=== PATIENT | male | born 1980 | race African-American/Black ===

== ENCOUNTER 2016-07-12 01:56 | Emergency (ER) | payer OTHER ==
[2016-07-12] MEDS ORDERED: ONDANSETRON 4MG/2ML VIAL (J2405) As Ordered ONE (02:59)
[2016-07-12 03:00] LABS: BASO % 0.6 % (0.0-1.0); EOS # 0.4 K/mm3 (0.0-0.50); EOS % 6.2 % (0.0-3.0); LARGE UNSTAINED CELL # 0.2 K/mm3 (0.0-0.4); LARGE UNSTAINED CELL % 3.6 % (0.0-4.0); LYMPH # 3.2 K/mm3 (1.5-4.5); LYMPH % 46.7 % (24.0-44.0); MEAN CORPUSCULAR HEMOGLOBIN 29.3 pg (27.0-33.0); MEAN CORPUSCULAR HGB CONC 35.1 g/dl (32.0-36.5); MEAN CORPUSCULAR VOLUME 83.4 fl (80.0-96.0); MONO # 0.4 K/mm3 (0.0-0.8); MONO % 5.2 % (0.0-5.0); NEUTROPHILS # 2.6 K/mm3 (1.8-7.7); NEUTROPHILS % 37.7 % (36.0-66.0); PLATELET COUNT, AUTOMATED 139 k/mm3 (150-450); RED CELL DISTRIBUTION WIDTH 13.2 % (11.5-14.5); WHITE BLOOD COUNT 6.8 K/mm3 (4.0-10.0)
[2016-07-12 03:19] LABS: ALBUMIN 3.8 GM/DL (3.2-5.2); ALBUMIN/GLOBULIN RATIO 1.06 (1.00-1.93); ALKALINE PHOSPHATASE 71 U/L (45-117); ALT/SGPT 71 U/L (12-78); AMYLASE 69 U/L (25-115); ANION GAP 10 MEQ/L (8-16); AST/SGOT 32 U/L (15-37); BILIRUBIN,DIRECT < 0.1 MG/DL (0.0-0.2); BILIRUBIN,TOTAL 0.3 MG/DL (0.2-1.0); BLOOD UREA NITROGEN 18 MG/DL (7-18); CALCIUM LEVEL 8.8 MG/DL (8.5-10.1); CARBON DIOXIDE LEVEL 29 MEQ/L (21-32); CHLORIDE LEVEL 103 MEQ/L (98-107); CREATININE FOR GFR 1.24 MG/DL (0.70-1.30); GLOMERULAR FILTRATION RATE > 60.0 (>60); GLUCOSE, FASTING 132 MG/DL (70-105); POTASSIUM SERUM 3.4 MEQ/L (3.5-5.1); SODIUM LEVEL 142 MEQ/L (136-145); TOTAL PROTEIN 7.4 GM/DL (6.4-8.2)
[2016-07-12] MEDS ORDERED: MECLIZINE 12.5 MG TAB As Ordered ONE (04:55)
--- NOTE | 2016-07-12 07:10 | EDDOCDS ---
Physician Documentation [facility] Name: Andrei Heard Age: 36 yrs Sex: Male : 1980 Arrival Date: 07/12/2016 Time: 01:56 Bed 7 Private MD: Disposition: 07/12/16 06:58 Discharged to Home/Self Care. Impression: Dizziness and giddiness, Nausea and vomiting. - Condition is Stable. - Discharge Instructions: Dizziness, Vertigo, Vertigo, [id number]-to-[id number]. - Prescriptions for Meclizine 25 mg Oral Tablet - take 1 tablet by ORAL route every 8 hours As needed; 30 tablet. ZOFRAN ODT 4 mg - dissolve 1 tablet by ORAL route 4 times per day As needed do not chew, do not swallow whole; 10 tablet. - Medication Reconciliation, Local Pharmacy Hours form. - Follow up: Socrates Campbell; When: 2 - 3 days; Reason: Continuance of care. - Problem is an acute exacerbation. - Symptoms have improved. Historical: - Allergies: No known drug Allergies; - Home Meds: 1. amlodipine 2.5 mg Oral tab 1 tab once daily (Last dose: 07/11/2016) 2. eye drops - PMHx: Hypertension; Glaucoma; - PSHx: none; - Social history: Smoking status: Patient states was never smoker of tobacco. No barriers to communication noted, The patient speaks fluent Danish, Speaks appropriately for age. - Family history: Not pertinent. - : The pt / caregiver states he / she is not on anticoagulants. Home medication list is obtained from the patient, [employer] import data. - Exposure Risk Screening:: None identified. Vital Signs: 07/12 02:06 BP 168 / 108; Pulse 87; Resp 20; Temp 96.9(O); Pulse Ox 95% on R/A; Weight 115.67 kg / kmg1 255.01 lbs (R); Height 6 ft. 3 in. (190.50 cm) (R); Pain 0/10; 02:12 BP 168 / 108 (auto/); cz 02:13 BP 162 / 102 (auto/); cz 02:13 Pulse 84 MON; Pulse Ox 94% ; cz 02:14 BP 159 / 101 (auto/); cz 02:14 Pulse 84 MON; Pulse Ox 95% ; cz 02:15 Pulse 82 MON; Pulse Ox 95% ; cz 02:29 BP 151 / 96 (auto/); cz 02:29 Pulse 84 MON; Pulse Ox 94% ; cz 02:44 BP 175 / 103 (auto/); cz 02:44 Pulse 74 MON; Pulse Ox 93% ; cz 02:58 Pulse 76 MON; Pulse Ox 92% ; cz 02:59 BP 163 / 90 (auto/); cz 03:14 BP 154 / 86 (auto/); cz 03:14 Pulse 72 MON; Pulse Ox 97% ; cz 03:29 BP 159 / 89 (auto/); cz 03:29 Pulse 72 MON; Pulse Ox 93% ; cz 03:44 BP 165 / 93 (auto/); cz 03:44 Pulse 68 MON; Pulse Ox 92% ; cz 03:59 BP 150 / 87 (auto/); cz 03:59 Pulse 68 MON; Pulse Ox 93% ; cz 04:14 BP 152 / 90 (auto/); cz 04:14 Pulse 68 MON; Pulse Ox 93% ; cz 04:29 BP 156 / 89 (auto/); cz 04:29 Pulse 72 MON; Pulse Ox 92% ; cz 04:42 Pulse 72 MON; Pulse Ox 93% ; cz 04:48 BP 127 / 65 (auto/); cz 04:59 BP 116 / 62 (auto/); cz 04:59 Pulse 70 MON; Pulse Ox 94% ; cz 05:14 BP 120 / 66 (auto/); cz 05:14 Pulse 70 MON; Pulse Ox 95% ; cz 05:29 BP 122 / 64 (auto/); cz 05:29 Pulse 66 MON; Pulse Ox 94% ; cz 05:44 BP 147 / 89 (auto/); cz 05:44 Pulse 74 MON; Pulse Ox 93% ; cz 05:59 BP 157 / 74 (auto/); cz 05:59 Pulse 72 MON; Pulse Ox 96% ; cz 07:09 BP 147 / 89; Pulse 83; Resp 16; Temp 96.3(O); Pulse Ox 97% on R/A; Pain 0/10; kr3 02:06 Body Mass Index 31.87 (115.67 kg, 190.50 cm) kmg1 MDM: 02:02 ECG WITH READING ER PHYS+CARDIAG ordered. EDMS 02:54 NS 0.9% 1000 ml IV at bolus once ordered. mm11 02:54 Ondansetron 4 mg IVP once ordered. mm11 02:54 IV Saline Lock ordered. mm11 02:54 Undress patient appropriately for examination ordered. mm11 02:55 Amylase Ordered. EDMS 02:55 Basic Metabolic Profile Ordered. EDMS 02:55 CBC with Diff Ordered. EDMS 02:55 Cardiac Injury Profile Ordered. EDMS 02:55 Lipase Ordered. EDMS 02:55 Liver Profile Ordered. EDMS 02:55 Troponin Ordered. EDMS 02:55 NOTHING BY MOUTH+DIET ordered. EDMS 03:11 Financial registration complete. h 03:22 Basic Metabolic Profile Reviewed. mm11 03:22 CBC with Diff Reviewed. mm11 03:22 Cardiac Injury Profile Reviewed. mm11 03:22 Amylase Reviewed. mm11 03:22 Lipase Reviewed. mm11 03:22 Liver Profile Reviewed. mm11 03:22 Troponin Reviewed. mm11 04:24 [facility] Payment Agreement was scanned into datango and attached to record. [facility] 04:48 NS 0.9% 1000 ml IV at bolus once ordered. mm11 04:50 Meclizine 25 mg PO once ordered. mm11 Administered Medications: 03:02 Drug: NS 0.9% 1000 ml [sodium chloride 0.9 % intravenous solution] Route: IV; Rate: cz bolus; Site: left antecubital; 03:03 Drug: Ondansetron 4 mg Route: IVP; Site: left antecubital; cz 04:51 Drug: NS 0.9% 1000 ml [sodium chloride 0.9 % intravenous solution] Route: IV; Rate: cz bolus; Site: left antecubital; 05:05 Drug: Meclizine 25 mg [meclizine 12.5 mg tablet (2 tabs)] Route: PO; cz Signatures: Dispatcher [employer] EDMS Hoa Enriquez RN RN kmg1 Jasson Lopez RN RN cz Robie, Kathleen,GILDARDO RN carlos3 Ko Rodriguez, DO [facility] Pastora Gillespie [facility] The chart was reviewed and I authenticate all verbal orders and agree with the evaluation and treatment provided.Attachments: 04:24 [facility] Payment Agreement [facility] MTDD
--- NOTE | 2016-07-12 07:10 | EDDOCDS ---
Nurse's Notes [facility] Name: Andrei Heard Age: 36 yrs Sex: Male : 1980 Arrival Date: 07/12/2016 Time: 01:56 Bed 7 Private MD: Diagnosis: Dizziness and giddiness;Nausea and vomiting Presentation: 07/12 02:03 Presenting complaint: Patient states: Dizzy, passing out tonight, palpitations, clammy, kmg1 nausea and vomiting. Suicide/Homicide risk assessment- the patient denies having any suicidal and/or homicidal ideations and does not present with any other emotional, behavioral or mental health complaints. Transition of care: patient was not received from another setting of care. 02:03 Method Of Arrival: Walkin/Carried/Asstd kmg1 02:13 Adult Sepsis Screening: The patient does not have new or worsening altered mentation. kmg1 Patient's respiratory rate is less than 22. Systolic blood pressure is greater than 100. Patient has a qSOFA score of 0- Negative Sepsis Screen. Status: Patient is not a retail service representative or dependent. 02:13 Acuity: DELFINA Level 3 kmg1 Triage Assessment: 02:06 General: Appears in no apparent distress, ill, uncomfortable, Behavior is appropriate kmg1 for age, cooperative. Pain: Denies pain. HIV screening NA for this visit Offered previously. The patient is triaged at the bedside. See Assessment in Nurses Notes section of ED record. Neurological: Level of Consciousness is awake, alert, Oriented to person, place, time, Reports dizziness. EENT: No deficits noted. Cardiovascular: Reports Nausea palpitations, syncope, Vomiting. Respiratory: Airway is patent Respiratory effort is even, unlabored, Respiratory pattern is regular, symmetrical. GI: Pt is actively vomiting clear fluid, Reports nausea, vomiting. : No deficits noted. Derm: Skin is dry, Skin is brown, Skin temperature is cool. Musculoskeletal: No deficits noted. Historical: - Allergies: No known drug Allergies; - Home Meds: 1. amlodipine 2.5 mg Oral tab 1 tab once daily (Last dose: 07/11/2016) 2. eye drops - PMHx: Hypertension; Glaucoma; - PSHx: none; - Social history: Smoking status: Patient states was never smoker of tobacco. No barriers to communication noted, The patient speaks fluent Wallisian, Speaks appropriately for age. - Family history: Not pertinent. - : The pt / caregiver states he / she is not on anticoagulants. Home medication list is obtained from the patient, [employer] import data. - Exposure Risk Screening:: None identified. Screenin:14 Screening information is obtained from the patient. Fall risk: No risks identified. kmg1 Assistance ADL's: requires no assistance with activities of daily living. Abuse/DV Screen: The patient / caregiver reports he/she is: not in a situation that causes fear, pain or injury. Nutritional screening: No deficits noted. Advance Directives: There is no active DNR order. home support is adequate. Assessment: 02:34 General: Appears uncomfortable, Behavior is appropriate for age. Neurological: No cz deficits noted. EENT: No deficits noted. Cardiovascular: No deficits noted. Rhythm is sinus bradycardia No ectopy. Respiratory: No deficits noted. Airway is patent Respiratory effort is even, unlabored, Respiratory pattern is regular. GI: No deficits noted. Abdomen is non- distended Bowel sounds present X 4 quads. 03:56 Reassessment: Patient appears in no apparent distress at this time. Patient states cz symptoms have improved. pt resting quietly in darkened room with lights off vital signs stable no vomiting since arrival. 04:52 Adult Sepsis Screening: The patient does not have new or worsening altered mentation. cz Patient's respiratory rate is less than 22. Systolic blood pressure is greater than 100. Patient has a qSOFA score of 0- Negative Sepsis Screen. General: pt up to bathroom to void became dizzy again provider aware orders received . 06:14 Reassessment: Patient appears in no apparent distress at this time. pt continues to cz rest in darkened room with 2nd IV infusing stable vital signs awaiting disposition. 06:40 Reassessment: pt up to bathroom to void again returned to bed with no vertigo this time cz pt states feels much better only slight headache over right eye pt has had no vomiting since arrival no ectopy on monitor. 07:08 Reassessment: Patient appears in no apparent distress at this time. Patient denies pain kr3 at this time. Neurological: Level of Consciousness is awake, alert, Moves all extremities. Gait is steady, Speech is normal, Denies dizziness. Respiratory: Respiratory effort is even, unlabored. Derm: Skin is normal. Vital Signs: 02:06 BP 168 / 108; Pulse 87; Resp 20; Temp 96.9(O); Pulse Ox 95% on R/A; Weight 115.67 kg kmg1 (R); Height 6 ft. 3 in. (190.50 cm) (R); Pain 0/10; 02:12 BP 168 / 108 (auto/); cz 02:13 BP 162 / 102 (auto/); cz 02:13 Pulse 84 MON; Pulse Ox 94% ; cz 02:14 BP 159 / 101 (auto/); cz 02:14 Pulse 84 MON; Pulse Ox 95% ; cz 02:15 Pulse 82 MON; Pulse Ox 95% ; cz 02:29 BP 151 / 96 (auto/); cz 02:29 Pulse 84 MON; Pulse Ox 94% ; cz 02:44 BP 175 / 103 (auto/); cz 02:44 Pulse 74 MON; Pulse Ox 93% ; cz 02:58 Pulse 76 MON; Pulse Ox 92% ; cz 02:59 BP 163 / 90 (auto/); cz 03:14 BP 154 / 86 (auto/); cz 03:14 Pulse 72 MON; Pulse Ox 97% ; cz 03:29 BP 159 / 89 (auto/); cz 03:29 Pulse 72 MON; Pulse Ox 93% ; cz 03:44 BP 165 / 93 (auto/); cz 03:44 Pulse 68 MON; Pulse Ox 92% ; cz 03:59 BP 150 / 87 (auto/); cz 03:59 Pulse 68 MON; Pulse Ox 93% ; cz 04:14 BP 152 / 90 (auto/); cz 04:14 Pulse 68 MON; Pulse Ox 93% ; cz 04:29 BP 156 / 89 (auto/); cz 04:29 Pulse 72 MON; Pulse Ox 92% ; cz 04:42 Pulse 72 MON; Pulse Ox 93% ; cz 04:48 BP 127 / 65 (auto/); cz 04:59 BP 116 / 62 (auto/); cz 04:59 Pulse 70 MON; Pulse Ox 94% ; cz 05:14 BP 120 / 66 (auto/); cz 05:14 Pulse 70 MON; Pulse Ox 95% ; cz 05:29 BP 122 / 64 (auto/); cz 05:29 Pulse 66 MON; Pulse Ox 94% ; cz 05:44 BP 147 / 89 (auto/); cz 05:44 Pulse 74 MON; Pulse Ox 93% ; cz 05:59 BP 157 / 74 (auto/); cz 05:59 Pulse 72 MON; Pulse Ox 96% ; cz 07:09 BP 147 / 89; Pulse 83; Resp 16; Temp 96.3(O); Pulse Ox 97% on R/A; Pain 0/10; kr3 02:06 Body Mass Index 31.87 (115.67 kg, 190.50 cm) kmg1 Vitals: 07:09 Log In Time: July 12, 2016 at 02:00. kr3 ED Course: 01:58 Patient visited by Zahira Prescott, Reg. hs2 01:58 Patient moved to Waiting hs2 02:01 Patient moved to 7 kmg1 02:10 Patient visited by Judy Rodriguez PCA. yo 02:10 Pt greeted and oriented to ED. Patient advised of names of staff involved in care, yo location of call hazel, wait times and NPO status. Patient has correct armband on for positive identification. Placed in gown. Bed in low position. Call light in reach. Side rails up X2. multicut line operator on. Pulse ox on. NIBP on. 02:10 EKG done. (by ED staff). Reviewed by Ko Rodriguez DO. yo 02:13 Triage Initiated kmg1 02:14 Patient visited by Hoa Enriquez RN. kmg1 02:17 Ko Rodriguez DO is Attending Physician. mm11 02:17 Patient visited by Ko Rodriguez DO. mm11 02:54 Patient visited by Ko Rodriguez DO. mm11 03:25 Patient visited by Jasson Lopez RN. cz 04:23 Patient name changed from Andrei\S\\S\Alzouma\S\ to Andrei\S\ \S\Alzouma. EDMS 04:24 [facility] Payment Agreement was scanned into [employer] and attached to record. slh 04:38 Patient visited by Jasson Lopez RN. cz 05:09 Patient visited by Jasson Lopez RN. cz 05:44 Patient visited by Jasson Lopez RN. cz 06:17 Patient visited by Jasson Lopez RN. cz 06:54 Patient visited by Jasson Lopez RN. cz 06:58 Socrates Campbell is Referral Physician. mm11 06:59 Stephanie Vanegas,RN is Primary Nurse. kr3 07:07 Discontinued lock intact, bleeding controlled, pressure dressing applied, No kr3 redness/swelling at site. No procedures done that require assistance. 07:09 The patient / caregiver is instructed regarding the plan of care and ED course. kr3 Administered Medications: 03:02 Drug: NS 0.9% 1000 ml [sodium chloride 0.9 % intravenous solution] Route: IV; Rate: cz bolus; Site: left antecubital; 03:03 Drug: Ondansetron 4 mg Route: IVP; Site: left antecubital; cz 04:51 Drug: NS 0.9% 1000 ml [sodium chloride 0.9 % intravenous solution] Route: IV; Rate: cz bolus; Site: left antecubital; 05:05 Drug: Meclizine 25 mg [meclizine 12.5 mg tablet (2 tabs)] Route: PO; cz Order Results: Lab Order: Amylase; SPEC'M 07/12/16 02:29 Test: AMYLASE; Value: 69; Range: 25-115; Units: U/L; Status: F Lab Order: Basic Metabolic Profile; SPEC'M 07/12/16 02:29 Test: GLUCOSE, FASTING; Value: 132; Range: 70-105; Abnormal: Above high normal; Units: MG/DL; Status: F Test: BLOOD UREA NITROGEN; Value: 18; Range: 7-18; Units: MG/DL; Status: F Test: CREATININE FOR GFR; Value: 1.24; Range: 0.70-1.30; Units: MG/DL; Status: F Test: GLOMERULAR FILTRATION RATE; Value: > 60.0; Range: >60; Status: F Test: SODIUM LEVEL; Value: 142; Range: 136-145; Units: MEQ/L; Status: F Test: POTASSIUM SERUM; Value: 3.4; Range: 3.5-5.1; Abnormal: Below low normal; Units: MEQ/L; Status: F Test: CHLORIDE LEVEL; Value: 103; Range: 98-107; Units: MEQ/L; Status: F Test: CARBON DIOXIDE LEVEL; Value: 29; Range: 21-32; Units: MEQ/L; Status: F Test: ANION GAP; Value: 10; Range: 8-16; Units: MEQ/L; Status: F Test: CALCIUM LEVEL; Value: 8.8; Range: 8.5-10.1; Units: MG/DL; Status: F Test Note: ; Units are mL/min/1.73 m2 Chronic Kidney Disease Staging per NKF: Stage I & II GFR >=60 Normal to Mildly Decreased Stage III GFR 30-59 Moderately Decreased Stage IV GFR 15-29 Severely Decreased Stage V GFR <15 Very Little GFR Left ESRD GFR <15 on PLAY THERAPIST Lab Order: CBC with Diff; SPEC'M 07/12/16 02:29 Test: WHITE BLOOD COUNT; Value: 6.8; Range: 4.0-10.0; Units: K/mm3; Status: F Test: RED BLOOD COUNT; Value: 5.67; Range: 4.30-6.10; Units: M/mm3; Status: F Test: HEMOGLOBIN; Value: 16.6; Range: 14.0-18.0; Units: g/dl; Status: F Test: HEMATOCRIT; Value: 47.3; Range: 42.0-52.0; Units: %; Status: F Test: MEAN CORPUSCULAR VOLUME; Value: 83.4; Range: 80.0-96.0; Units: fl; Status: F Test: MEAN CORPUSCULAR HEMOGLOBIN; Value: 29.3; Range: 27.0-33.0; Units: pg; Status: F Test: MEAN CORPUSCULAR HGB CONC; Value: 35.1; Range: 32.0-36.5; Units: g/dl; Status: F Test: RED CELL DISTRIBUTION WIDTH; Value: 13.2; Range: 11.5-14.5; Units: %; Status: F Test: PLATELET COUNT, AUTOMATED; Value: 139; Range: 150-450; Abnormal: Below low normal; Units: k/mm3; Status: F Test: NEUTROPHILS %; Value: 37.7; Range: 36.0-66.0; Units: %; Status: F Test: LYMPH %; Value: 46.7; Range: 24.0-44.0; Abnormal: Above high normal; Units: %; Status: F Test: MONO %; Value: 5.2; Range: 0.0-5.0; Abnormal: Above high normal; Units: %; Status: F Test: EOS %; Value: 6.2; Range: 0.0-3.0; Abnormal: Above high normal; Units: %; Status: F Test: BASO %; Value: 0.6; Range: 0.0-1.0; Units: %; Status: F Test: LARGE UNSTAINED CELL %; Value: 3.6; Range: 0.0-4.0; Units: %; Status: F Test: NEUTROPHILS #; Value: 2.6; Range: 1.8-7.7; Units: K/mm3; Status: F Test: LYMPH #; Value: 3.2; Range: 1.5-4.5; Units: K/mm3; Status: F Test: MONO #; Value: 0.4; Range: 0.0-0.8; Units: K/mm3; Status: F Test: EOS #; Value: 0.4; Range: 0.0-0.50; Units: K/mm3; Status: F Test: BASO #; Value: 0.0; Range: 0.0-0.2; Units: K/mm3; Status: F Test: LARGE UNSTAINED CELL #; Value: 0.2; Range: 0.0-0.4; Units: K/mm3; Status: F Lab Order: Cardiac Injury Profile; [facility] 07/12/16 02:29 Test: CPK CREATINE PHOSPHOKINASE; Value: 316; Range: 39-308; Abnormal: Above high normal; Units: U/L; Status: F Test: CK-MB VALUE MASS; Value: 1.1; Range: 0.0-3.6; Units: NG/ML; Status: F Test: MB/CK RELATIVE INDEX; Value: 0.34; Range: < OR =4; Status: F Test Note: ; DIAGNOSIS CRITERIA MMB ng/ml Relative Index (RI) NON-AMI < or = 5 N/A TENORIO ZONE > 5 < or = 4 AMI > 5 > 4 Lab Order: Lipase; [facility] 07/12/16 02:29 Test: LIPASE; Value: 154; Range: 73-393; Units: U/L; Status: F Lab Order: Liver Profile; [facility] 07/12/16 02:29 Test: AST/SGOT; Value: 32; Range: 15-37; Units: U/L; Status: F Test: ALT/SGPT; Value: 71; Range: 12-78; Units: U/L; Status: F Test: ALKALINE PHOSPHATASE; Value: 71; Range: 45-117; Units: U/L; Status: F Test: BILIRUBIN,TOTAL; Value: 0.3; Range: 0.2-1.0; Units: MG/DL; Status: F Test: BILIRUBIN,DIRECT; Value: < 0.1; Range: 0.0-0.2; Units: MG/DL; Status: F Test: TOTAL PROTEIN; Value: 7.4; Range: 6.4-8.2; Units: GM/DL; Status: F Test: ALBUMIN; Value: 3.8; Range: 3.2-5.2; Units: GM/DL; Status: F Test: ALBUMIN/GLOBULIN RATIO; Value: 1.06; Range: 1.00-1.93; Status: F Lab Order: Troponin; SPEC'M 07/12/16 02:29 Test: TROPONIN I; Value: < 0.02; Range: < 0.10; Units: NG/ML; Status: F Test Note: ; Troponin I Reference Interval for The [employer] LOCI: 99th Percentile= 0.00-0.045 ng/ml Risk Stratification: <= 0.10 ng/ml Decreased Risk for Adverse Clinical Events. 0.10-1.50 ng/ml Increased Risk for Adverse Clinical Events. Evaluation of additional criterion and/or repeat testing in 2-6 hours is suggested to rule out myocardial damage. >= 1.50 ng/ml Indicative of Myocardial Injury. Outcome: 06:58 Discharge ordered by Provider. mm11 07:07 Discharge Assessment: patient administered narcotics - no. The following High Risk kr3 Discharge criteria are identified: None. Discharged to home ambulatory. Condition: stable. Discharge instructions given to patient, Instructed on discharge instructions, follow up and referral plans. medication usage, Demonstrated understanding of instructions, medications, Pt was receptive of discharge instructions/ teaching. Prescriptions given X 2. No special radiology studies were completed. Property sent home with patient. 07:09 Patient left the ED. kr3 Signatures: Dispatcher [facility] Hoa Enriquez RN RN kmg1 Jasson Lopez RN RN cz Stephanie Vanegas RN RN kr3 Ko Rodriguez, DO DO mm11 Michael, Judy, [employer]OVER [employer] DUMP[employer] yo Gillespie, Zahira Tillman, Reg Reg hs2 MTDD
--- NOTE | 2016-07-12 20:53 | ECGEPIP ---
Stationary ECG Study [facility] - ED Test Date: 2016-07-12 Pat Name: KANE GRAF Department: Room: - Gender: M [employer] T[employer]: oumou : 1980 Requested By: PETER Daniels Order Number: [id number] Reading MD: Annalise Wallace Measurements Intervals [place] Rate: 88 P: 45 KS: 216 QRS: -4 QRSD: 100 T: 51 QT: 355 QTc: 432 Interpretive Statements SINUS RHYTHM WITH FIRST DEGREE AV BLOCK INFERIOR MYOCARDIAL INFARCTION, OF INDETERMINATE AGE NSTTW ABNORMALITY INCREASED RATE 01/01/16 Electronically Signed On 07-12-2016 20:52:59 EST by Annalise Wallace
--- NOTE | 2016-07-14 08:10 | EDDOCDS ---
Physician Documentation [facility] Name: Andrei Heard Age: 36 yrs Sex: Male : 1980 Arrival Date: 07/12/2016 Time: 01:56 Bed 7 Private MD: Disposition: 07/12/16 06:58 Discharged to Home/Self Care. Impression: Dizziness and giddiness, Nausea and vomiting. - Condition is Stable. - Discharge Instructions: Dizziness, Vertigo, Vertigo, Fcye-ei-Bgct. - Prescriptions for Meclizine 25 mg Oral Tablet - take 1 tablet by ORAL route every 8 hours As needed; 30 tablet. ZOFRAN ODT 4 mg - dissolve 1 tablet by ORAL route 4 times per day As needed do not chew, do not swallow whole; 10 tablet. - Medication Reconciliation, Local Pharmacy Hours form. - Follow up: Socrates Campbell; When: 2 - 3 days; Reason: Continuance of care. - Problem is an acute exacerbation. - Symptoms have improved. Historical: - Allergies: No known drug Allergies; - Home Meds: 1. amlodipine 2.5 mg Oral tab 1 tab once daily (Last dose: 07/11/2016) 2. eye drops - PMHx: Hypertension; Glaucoma; - PSHx: none; - Social history: Smoking status: Patient states was never smoker of tobacco. No barriers to communication noted, The patient speaks fluent Uzbek, Speaks appropriately for age. - Family history: Not pertinent. - : The pt / caregiver states he / she is not on anticoagulants. 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 - Exposure Risk Screening:: None identified. Vital Signs: 07/12 02:06 BP 168 / 108; Pulse 87; Resp 20; Temp 96.9(O); Pulse Ox 95% on R/A; Weight 115.67 kg / kmg1 255.01 lbs (R); Height 6 ft. 3 in. (190.50 cm) (R); Pain 0/10; 02:12 BP 168 / 108 (auto/); cz 02:13 BP 162 / 102 (auto/); cz 02:13 Pulse 84 MON; Pulse Ox 94% ; cz 02:14 BP 159 / 101 (auto/); cz 02:14 Pulse 84 MON; Pulse Ox 95% ; cz 02:15 Pulse 82 MON; Pulse Ox 95% ; cz 02:29 BP 151 / 96 (auto/); cz 02:29 Pulse 84 MON; Pulse Ox 94% ; cz 02:44 BP 175 / 103 (auto/); cz 02:44 Pulse 74 MON; Pulse Ox 93% ; cz 02:58 Pulse 76 MON; Pulse Ox 92% ; cz 02:59 BP 163 / 90 (auto/); cz 03:14 BP 154 / 86 (auto/); cz 03:14 Pulse 72 MON; Pulse Ox 97% ; cz 03:29 BP 159 / 89 (auto/); cz 03:29 Pulse 72 MON; Pulse Ox 93% ; cz 03:44 BP 165 / 93 (auto/); cz 03:44 Pulse 68 MON; Pulse Ox 92% ; cz 03:59 BP 150 / 87 (auto/); cz 03:59 Pulse 68 MON; Pulse Ox 93% ; cz 04:14 BP 152 / 90 (auto/); cz 04:14 Pulse 68 MON; Pulse Ox 93% ; cz 04:29 BP 156 / 89 (auto/); cz 04:29 Pulse 72 MON; Pulse Ox 92% ; cz 04:42 Pulse 72 MON; Pulse Ox 93% ; cz 04:48 BP 127 / 65 (auto/); cz 04:59 BP 116 / 62 (auto/); cz 04:59 Pulse 70 MON; Pulse Ox 94% ; cz 05:14 BP 120 / 66 (auto/); cz 05:14 Pulse 70 MON; Pulse Ox 95% ; cz 05:29 BP 122 / 64 (auto/); cz 05:29 Pulse 66 MON; Pulse Ox 94% ; cz 05:44 BP 147 / 89 (auto/); cz 05:44 Pulse 74 MON; Pulse Ox 93% ; cz 05:59 BP 157 / 74 (auto/); cz 05:59 Pulse 72 MON; Pulse Ox 96% ; cz 07:09 BP 147 / 89; Pulse 83; Resp 16; Temp 96.3(O); Pulse Ox 97% on R/A; Pain 0/10; kr3 02:06 Body Mass Index 31.87 (115.67 kg, 190.50 cm) kmg1 MDM: 02:02 ECG WITH READING ER PHYS+CARDIAG ordered. EDMS 02:54 NS 0.9% 1000 ml IV at bolus once ordered. mm11 02:54 Ondansetron 4 mg IVP once ordered. mm11 02:54 IV Saline Lock ordered. mm11 02:54 Undress patient appropriately for examination ordered. mm11 02:55 Amylase Ordered. EDMS 02:55 Basic Metabolic Profile Ordered. EDMS 02:55 CBC with Diff Ordered. EDMS 02:55 Cardiac Injury Profile Ordered. EDMS 02:55 Lipase Ordered. EDMS 02:55 Liver Profile Ordered. EDMS 02:55 Troponin Ordered. EDMS 02:55 NOTHING BY MOUTH+DIET ordered. EDMS 03:11 Financial registration complete. h 03:22 Basic Metabolic Profile Reviewed. mm11 03:22 CBC with Diff Reviewed. mm11 03:22 Cardiac Injury Profile Reviewed. mm11 03:22 Amylase Reviewed. mm11 03:22 Lipase Reviewed. mm11 03:22 Liver Profile Reviewed. mm11 03:22 Troponin Reviewed. mm11 04:24 [facility] Payment Agreement was scanned into Real Time Translation and attached to record. [facility] 04:48 NS 0.9% 1000 ml IV at bolus once ordered. 11 04:50 Meclizine 25 mg PO once ordered. [facility] 14:37 T-Sheet-- Draft Copy was scanned into Real Time Translation and attached to record. 14:37 ECG/EKG was scanned into Real Time Translation and attached to record. Administered Medications: 03:02 Drug: NS 0.9% 1000 ml [sodium chloride 0.9 % intravenous solution] Route: IV; Rate: cz bolus; Site: left antecubital; 03:03 Drug: Ondansetron 4 mg Route: IVP; Site: left antecubital; cz 04:51 Drug: NS 0.9% 1000 ml [sodium chloride 0.9 % intravenous solution] Route: IV; Rate: cz bolus; Site: left antecubital; 05:05 Drug: Meclizine 25 mg [meclizine 12.5 mg tablet (2 tabs)] Route: PO; cz Signatures: Dispatcher [employer] EDKS Hoa Enriquez RN RN kmg1 Jasson Lopez RN RN cz Lily Leung, Reg Reg gb Stephanie Vanegas RN RN [id number] Ko Rodriguez, DO [facility] Pastora Gillespie [facility] The chart was reviewed and I authenticate all verbal orders and agree with the evaluation and treatment provided.Attachments: 04:24 [facility] Payment Agreement [facility] 14:37 T-Sheet-- Draft Copy gb 14:37 ECG/EKG gb Chart Complete MTDD
--- NOTE | 2016-07-14 08:10 | EDDOCDS ---
Nurse's Notes [facility] Name: Andrei Heard Age: 36 yrs Sex: Male : 1980 Arrival Date: 07/12/2016 Time: 01:56 Bed 7 Private MD: Diagnosis: Dizziness and giddiness;Nausea and vomiting Presentation: 07/12 02:03 Presenting complaint: Patient states: Dizzy, passing out tonight, palpitations, clammy, kmg1 nausea and vomiting. Suicide/Homicide risk assessment- the patient denies having any suicidal and/or homicidal ideations and does not present with any other emotional, behavioral or mental health complaints. Transition of care: patient was not received from another setting of care. 02:03 Method Of Arrival: Walkin/Carried/Asstd kmg1 02:13 Adult Sepsis Screening: The patient does not have new or worsening altered mentation. kmg1 Patient's respiratory rate is less than 22. Systolic blood pressure is greater than 100. Patient has a qSOFA score of 0- Negative Sepsis Screen. Status: Patient is not a service desk agent or dependent. 02:13 Acuity: DELFINA Level 3 kmg1 Triage Assessment: 02:06 General: Appears in no apparent distress, ill, uncomfortable, Behavior is appropriate kmg1 for age, cooperative. Pain: Denies pain. HIV screening NA for this visit Offered previously. The patient is triaged at the bedside. See Assessment in Nurses Notes section of ED record. Neurological: Level of Consciousness is awake, alert, Oriented to person, place, time, Reports dizziness. EENT: No deficits noted. Cardiovascular: Reports Nausea palpitations, syncope, Vomiting. Respiratory: Airway is patent Respiratory effort is even, unlabored, Respiratory pattern is regular, symmetrical. GI: Pt is actively vomiting clear fluid, Reports nausea, vomiting. : No deficits noted. Derm: Skin is dry, Skin is brown, Skin temperature is cool. Musculoskeletal: No deficits noted. Historical: - Allergies: No known drug Allergies; - Home Meds: 1. amlodipine 2.5 mg Oral tab 1 tab once daily (Last dose: 07/11/2016) 2. eye drops - PMHx: Hypertension; Glaucoma; - PSHx: none; - Social history: Smoking status: Patient states was never smoker of tobacco. No barriers to communication noted, The patient speaks fluent Sammarinese, Speaks appropriately for age. - Family history: Not pertinent. - : The pt / caregiver states he / she is not on anticoagulants. Home medication list is obtained from the patient, [employer] import data. - Exposure Risk Screening:: None identified. Screenin:14 Screening information is obtained from the patient. Fall risk: No risks identified. kmg1 Assistance ADL's: requires no assistance with activities of daily living. Abuse/DV Screen: The patient / caregiver reports he/she is: not in a situation that causes fear, pain or injury. Nutritional screening: No deficits noted. Advance Directives: There is no active DNR order. home support is adequate. Assessment: 02:34 General: Appears uncomfortable, Behavior is appropriate for age. Neurological: No cz deficits noted. EENT: No deficits noted. Cardiovascular: No deficits noted. Rhythm is sinus bradycardia No ectopy. Respiratory: No deficits noted. Airway is patent Respiratory effort is even, unlabored, Respiratory pattern is regular. GI: No deficits noted. Abdomen is non- distended Bowel sounds present X 4 quads. 03:56 Reassessment: Patient appears in no apparent distress at this time. Patient states cz symptoms have improved. pt resting quietly in darkened room with lights off vital signs stable no vomiting since arrival. 04:52 Adult Sepsis Screening: The patient does not have new or worsening altered mentation. cz Patient's respiratory rate is less than 22. Systolic blood pressure is greater than 100. Patient has a qSOFA score of 0- Negative Sepsis Screen. General: pt up to bathroom to void became dizzy again provider aware orders received . 06:14 Reassessment: Patient appears in no apparent distress at this time. pt continues to cz rest in darkened room with 2nd IV infusing stable vital signs awaiting disposition. 06:40 Reassessment: pt up to bathroom to void again returned to bed with no vertigo this time cz pt states feels much better only slight headache over right eye pt has had no vomiting since arrival no ectopy on monitor. 07:08 Reassessment: Patient appears in no apparent distress at this time. Patient denies pain kr3 at this time. Neurological: Level of Consciousness is awake, alert, Moves all extremities. Gait is steady, Speech is normal, Denies dizziness. Respiratory: Respiratory effort is even, unlabored. Derm: Skin is normal. Vital Signs: 02:06 BP 168 / 108; Pulse 87; Resp 20; Temp 96.9(O); Pulse Ox 95% on R/A; Weight 115.67 kg kmg1 (R); Height 6 ft. 3 in. (190.50 cm) (R); Pain 0/10; 02:12 BP 168 / 108 (auto/); cz 02:13 BP 162 / 102 (auto/); cz 02:13 Pulse 84 MON; Pulse Ox 94% ; cz 02:14 BP 159 / 101 (auto/); cz 02:14 Pulse 84 MON; Pulse Ox 95% ; cz 02:15 Pulse 82 MON; Pulse Ox 95% ; cz 02:29 BP 151 / 96 (auto/); cz 02:29 Pulse 84 MON; Pulse Ox 94% ; cz 02:44 BP 175 / 103 (auto/); cz 02:44 Pulse 74 MON; Pulse Ox 93% ; cz 02:58 Pulse 76 MON; Pulse Ox 92% ; cz 02:59 BP 163 / 90 (auto/); cz 03:14 BP 154 / 86 (auto/); cz 03:14 Pulse 72 MON; Pulse Ox 97% ; cz 03:29 BP 159 / 89 (auto/); cz 03:29 Pulse 72 MON; Pulse Ox 93% ; cz 03:44 BP 165 / 93 (auto/); cz 03:44 Pulse 68 MON; Pulse Ox 92% ; cz 03:59 BP 150 / 87 (auto/); cz 03:59 Pulse 68 MON; Pulse Ox 93% ; cz 04:14 BP 152 / 90 (auto/); cz 04:14 Pulse 68 MON; Pulse Ox 93% ; cz 04:29 BP 156 / 89 (auto/); cz 04:29 Pulse 72 MON; Pulse Ox 92% ; cz 04:42 Pulse 72 MON; Pulse Ox 93% ; cz 04:48 BP 127 / 65 (auto/); cz 04:59 BP 116 / 62 (auto/); cz 04:59 Pulse 70 MON; Pulse Ox 94% ; cz 05:14 BP 120 / 66 (auto/); cz 05:14 Pulse 70 MON; Pulse Ox 95% ; cz 05:29 BP 122 / 64 (auto/); cz 05:29 Pulse 66 MON; Pulse Ox 94% ; cz 05:44 BP 147 / 89 (auto/); cz 05:44 Pulse 74 MON; Pulse Ox 93% ; cz 05:59 BP 157 / 74 (auto/); cz 05:59 Pulse 72 MON; Pulse Ox 96% ; cz 07:09 BP 147 / 89; Pulse 83; Resp 16; Temp 96.3(O); Pulse Ox 97% on R/A; Pain 0/10; kr3 02:06 Body Mass Index 31.87 (115.67 kg, 190.50 cm) kmg1 Vitals: 07:09 Log In Time: July 12, 2016 at 02:00. kr3 ED Course: 01:58 Patient visited by Zahira Prescott, Reg. hs2 01:58 Patient moved to Waiting hs2 02:01 Patient moved to 7 kmg1 02:10 Patient visited by Judy Rodriguez PCA. yo 02:10 Pt greeted and oriented to ED. Patient advised of names of staff involved in care, yo location of call hazel, wait times and NPO status. Patient has correct armband on for positive identification. Placed in gown. Bed in low position. Call light in reach. Side rails up X2. youth nutritional monitor on. Pulse ox on. NIBP on. 02:10 EKG done. (by ED staff). Reviewed by Peter Rodriguez DO. yo 02:13 Triage Initiated kmg1 02:14 Patient visited by Hoa Enriquez RN. kmg1 02:17 Peter Rodriguez DO is Attending Physician. mm11 02:17 Patient visited by Peter Rodriguez DO. mm11 02:54 Patient visited by Peter Rodriguez DO. mm11 03:25 Patient visited by Jasson Lopez RN. cz 04:23 Patient name changed from Andrei\S\\S\Alzouma\S\ to Andrei\S\ \S\Alzouma. EDMS 04:24 [facility] Payment Agreement was scanned into Global [employer] Biorepositories and attached to record. slh 04:38 Patient visited by Jasson Lopez RN. cz 05:09 Patient visited by Jasson Lopez RN. cz 05:44 Patient visited by Jasson Lopez RN. cz 06:17 Patient visited by Jasson Lopez RN. cz 06:54 Patient visited by Jasson Lopez RN. cz 06:58 Socrates Campbell is Referral Physician. mm11 06:59 Stephanie Vanegas,RN is Primary Nurse. kr3 07:07 Discontinued lock intact, bleeding controlled, pressure dressing applied, No kr3 redness/swelling at site. No procedures done that require assistance. 07:09 The patient / caregiver is instructed regarding the plan of care and ED course. kr3 14:37 T-Sheet-- Draft Copy was scanned into [employer] and attached to record. gb 14:37 ECG/EKG was scanned into [employer] and attached to record. gb 21:37 EKG-ADULT Returned. EDMS Administered Medications: 03:02 Drug: NS 0.9% 1000 ml [sodium chloride 0.9 % intravenous solution] Route: IV; Rate: cz bolus; Site: left antecubital; 03:03 Drug: Ondansetron 4 mg Route: IVP; Site: left antecubital; cz 04:51 Drug: NS 0.9% 1000 ml [sodium chloride 0.9 % intravenous solution] Route: IV; Rate: cz bolus; Site: left antecubital; 05:05 Drug: Meclizine 25 mg [meclizine 12.5 mg tablet (2 tabs)] Route: PO; cz Order Results: Lab Order: Amylase; SPEC'M 07/12/16 02:29 Test: AMYLASE; Value: 69; Range: 25-115; Units: U/L; Status: F Lab Order: Basic Metabolic Profile; SPEC'M 07/12/16 02:29 Test: GLUCOSE, FASTING; Value: 132; Range: 70-105; Abnormal: Above high normal; Units: MG/DL; Status: F Test: BLOOD UREA NITROGEN; Value: 18; Range: 7-18; Units: MG/DL; Status: F Test: CREATININE FOR GFR; Value: 1.24; Range: 0.70-1.30; Units: MG/DL; Status: F Test: GLOMERULAR FILTRATION RATE; Value: > 60.0; Range: >60; Status: F Test: SODIUM LEVEL; Value: 142; Range: 136-145; Units: MEQ/L; Status: F Test: POTASSIUM SERUM; Value: 3.4; Range: 3.5-5.1; Abnormal: Below low normal; Units: MEQ/L; Status: F Test: CHLORIDE LEVEL; Value: 103; Range: 98-107; Units: MEQ/L; Status: F Test: CARBON DIOXIDE LEVEL; Value: 29; Range: 21-32; Units: MEQ/L; Status: F Test: ANION GAP; Value: 10; Range: 8-16; Units: MEQ/L; Status: F Test: CALCIUM LEVEL; Value: 8.8; Range: 8.5-10.1; Units: MG/DL; Status: F Test Note: ; Units are mL/min/1.73 m2 Chronic Kidney Disease Staging per NKF: Stage I & II GFR >=60 Normal to Mildly Decreased Stage III GFR 30-59 Moderately Decreased Stage IV GFR 15-29 Severely Decreased Stage V GFR <15 Very Little GFR Left ESRD GFR <15 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 Lab Order: CBC with Diff; SPEC'M 07/12/16 02:29 Test: WHITE BLOOD COUNT; Value: 6.8; Range: 4.0-10.0; Units: K/mm3; Status: F Test: RED BLOOD COUNT; Value: 5.67; Range: 4.30-6.10; Units: M/mm3; Status: F Test: HEMOGLOBIN; Value: 16.6; Range: 14.0-18.0; Units: g/dl; Status: F Test: HEMATOCRIT; Value: 47.3; Range: 42.0-52.0; Units: %; Status: F Test: MEAN CORPUSCULAR VOLUME; Value: 83.4; Range: 80.0-96.0; Units: fl; Status: F Test: MEAN CORPUSCULAR HEMOGLOBIN; Value: 29.3; Range: 27.0-33.0; Units: pg; Status: F Test: MEAN CORPUSCULAR HGB CONC; Value: 35.1; Range: 32.0-36.5; Units: g/dl; Status: F Test: RED CELL DISTRIBUTION WIDTH; Value: 13.2; Range: 11.5-14.5; Units: %; Status: F Test: PLATELET COUNT, AUTOMATED; Value: 139; Range: 150-450; Abnormal: Below low normal; Units: k/mm3; Status: F Test: NEUTROPHILS %; Value: 37.7; Range: 36.0-66.0; Units: %; Status: F Test: LYMPH %; Value: 46.7; Range: 24.0-44.0; Abnormal: Above high normal; Units: %; Status: F Test: MONO %; Value: 5.2; Range: 0.0-5.0; Abnormal: Above high normal; Units: %; Status: F Test: EOS %; Value: 6.2; Range: 0.0-3.0; Abnormal: Above high normal; Units: %; Status: F Test: BASO %; Value: 0.6; Range: 0.0-1.0; Units: %; Status: F Test: LARGE UNSTAINED CELL %; Value: 3.6; Range: 0.0-4.0; Units: %; Status: F Test: NEUTROPHILS #; Value: 2.6; Range: 1.8-7.7; Units: K/mm3; Status: F Test: LYMPH #; Value: 3.2; Range: 1.5-4.5; Units: K/mm3; Status: F Test: MONO #; Value: 0.4; Range: 0.0-0.8; Units: K/mm3; Status: F Test: EOS #; Value: 0.4; Range: 0.0-0.50; Units: K/mm3; Status: F Test: BASO #; Value: 0.0; Range: 0.0-0.2; Units: K/mm3; Status: F Test: LARGE UNSTAINED CELL #; Value: 0.2; Range: 0.0-0.4; Units: K/mm3; Status: F Lab Order: Cardiac Injury Profile; SPEC'M 07/12/16 02:29 Test: CPK CREATINE PHOSPHOKINASE; Value: 316; Range: 39-308; Abnormal: Above high normal; Units: U/L; Status: F Test: CK-MB VALUE MASS; Value: 1.1; Range: 0.0-3.6; Units: NG/ML; Status: F Test: MB/CK RELATIVE INDEX; Value: 0.34; Range: < OR =4; Status: F Test Note: ; DIAGNOSIS CRITERIA MMB ng/ml Relative Index (RI) NON-AMI < or = 5 N/A TENORIO ZONE > 5 < or = 4 AMI > 5 > 4 Lab Order: Lipase; SPEC'M 07/12/16 02:29 Test: LIPASE; Value: 154; Range: 73-393; Units: U/L; Status: F Lab Order: Liver Profile; SPEC'M 07/12/16 02:29 Test: AST/SGOT; Value: 32; Range: 15-37; Units: U/L; Status: F Test: ALT/SGPT; Value: 71; Range: 12-78; Units: U/L; Status: F Test: ALKALINE PHOSPHATASE; Value: 71; Range: 45-117; Units: U/L; Status: F Test: BILIRUBIN,TOTAL; Value: 0.3; Range: 0.2-1.0; Units: MG/DL; Status: F Test: BILIRUBIN,DIRECT; Value: < 0.1; Range: 0.0-0.2; Units: MG/DL; Status: F Test: TOTAL PROTEIN; Value: 7.4; Range: 6.4-8.2; Units: GM/DL; Status: F Test: ALBUMIN; Value: 3.8; Range: 3.2-5.2; Units: GM/DL; Status: F Test: ALBUMIN/GLOBULIN RATIO; Value: 1.06; Range: 1.00-1.93; Status: F Lab Order: Troponin; SPEC'M 07/12/16 02:29 Test: TROPONIN I; Value: < 0.02; Range: < 0.10; Units: NG/ML; Status: F Test Note: ; Troponin I Reference Interval for Siemens [place] LOCI: 99th Percentile= 0.00-0.045 ng/ml Risk Stratification: <= 0.10 ng/ml Decreased Risk for Adverse Clinical Events. 0.10-1.50 ng/ml Increased Risk for Adverse Clinical Events. Evaluation of additional criterion and/or repeat testing in 2-6 hours is suggested to rule out myocardial damage. >= 1.50 ng/ml Indicative of Myocardial Injury. Radiology Order: EKG-ADULT Test: EKG-ADULT REASON FOR EXAMINATION: Chest Pain; Stationary ECG Study; [facility] - ED; ; Test Date: 2016-07-12; Pat Name: [facility] Department:; Room: -; Gender: M Flexo Operator: oumou; : 1980 Requested By: PETER Veliz Order Number: [id number] Reading MD: Annalise Wallace; Measurements; Intervals [place]; Rate: 88 P: 45; ID: [id number] QRS: -4; QRSD: 100 T: 51; QT: 355; QTc: 432; Interpretive Statements; SINUS RHYTHM WITH FIRST DEGREE AV BLOCK; INFERIOR MYOCARDIAL INFARCTION, OF INDETERMINATE AGE; NSTTW ABNORMALITY; INCREASED RATE 01/01/16; Electronically Signed On 07-12-2016 20:52:59 EST by Annalise Wallace; Outcome: 06:58 Discharge ordered by Provider. mm11 07:07 Discharge Assessment: patient administered narcotics - no. The following High Risk kr3 Discharge criteria are identified: None. Discharged to home ambulatory. Condition: stable. Discharge instructions given to patient, Instructed on discharge instructions, follow up and referral plans. medication usage, Demonstrated understanding of instructions, medications, Pt was receptive of discharge instructions/ teaching. Prescriptions given X 2. No special radiology studies were completed. Property sent home with patient. 07:09 Patient left the ED. kr3 Signatures: Dispatcher [employer] EDMS Hoa Enriquez, RN RN kmg1 Jasson Lopez, RN RN Lily Cisneros, Reg Reg gb Stephanie Vanegas,GILDARDO RN kr3 Peter Rodriguez, DO mm11 Judy Rodrgiuez, LACEY EXECUTIVE DIRECTOR [employer] Pastora Mcdonald Hillary, Reg Reg hs2 Chart Complete MTDD
--- NOTE | 2016-07-14 08:10 | EDDOCDS ---
Physician Documentation [facility] Name: Andrei Heard Age: 36 yrs Sex: Male : 1980 Arrival Date: 07/12/2016 Time: 01:56 Bed 7 Private MD: Disposition: 07/12/16 06:58 Discharged to Home/Self Care. Impression: Dizziness and giddiness, Nausea and vomiting. - Condition is Stable. - Discharge Instructions: Dizziness, Vertigo, Vertigo, [id number]. - Prescriptions for Meclizine 25 mg Oral Tablet - take 1 tablet by ORAL route every 8 hours As needed; 30 tablet. ZOFRAN ODT 4 mg - dissolve 1 tablet by ORAL route 4 times per day As needed do not chew, do not swallow whole; 10 tablet. - Medication Reconciliation, Local Pharmacy Hours form. - Follow up: Socrates Campbell; When: 2 - 3 days; Reason: Continuance of care. - Problem is an acute exacerbation. - Symptoms have improved. Historical: - Allergies: No known drug Allergies; - Home Meds: 1. amlodipine 2.5 mg Oral tab 1 tab once daily (Last dose: 07/11/2016) 2. eye drops - PMHx: Hypertension; Glaucoma; - PSHx: none; - Social history: Smoking status: Patient states was never smoker of tobacco. No barriers to communication noted, The patient speaks fluent Macedonian, Speaks appropriately for age. - Family history: Not pertinent. - : The pt / caregiver states he / she is not on anticoagulants. Home medication list is obtained from the patient, [employer] import data. - Exposure Risk Screening:: None identified. Vital Signs: 07/12 02:06 BP 168 / 108; Pulse 87; Resp 20; Temp 96.9(O); Pulse Ox 95% on R/A; Weight 115.67 kg / kmg1 255.01 lbs (R); Height 6 ft. 3 in. (190.50 cm) (R); Pain 0/10; 02:12 BP 168 / 108 (auto/); cz 02:13 BP 162 / 102 (auto/); cz 02:13 Pulse 84 MON; Pulse Ox 94% ; cz 02:14 BP 159 / 101 (auto/); cz 02:14 Pulse 84 MON; Pulse Ox 95% ; cz 02:15 Pulse 82 MON; Pulse Ox 95% ; cz 02:29 BP 151 / 96 (auto/); cz 02:29 Pulse 84 MON; Pulse Ox 94% ; cz 02:44 BP 175 / 103 (auto/); cz 02:44 Pulse 74 MON; Pulse Ox 93% ; cz 02:58 Pulse 76 MON; Pulse Ox 92% ; cz 02:59 BP 163 / 90 (auto/); cz 03:14 BP 154 / 86 (auto/); cz 03:14 Pulse 72 MON; Pulse Ox 97% ; cz 03:29 BP 159 / 89 (auto/); cz 03:29 Pulse 72 MON; Pulse Ox 93% ; cz 03:44 BP 165 / 93 (auto/); cz 03:44 Pulse 68 MON; Pulse Ox 92% ; cz 03:59 BP 150 / 87 (auto/); cz 03:59 Pulse 68 MON; Pulse Ox 93% ; cz 04:14 BP 152 / 90 (auto/); cz 04:14 Pulse 68 MON; Pulse Ox 93% ; cz 04:29 BP 156 / 89 (auto/); cz 04:29 Pulse 72 MON; Pulse Ox 92% ; cz 04:42 Pulse 72 MON; Pulse Ox 93% ; cz 04:48 BP 127 / 65 (auto/); cz 04:59 BP 116 / 62 (auto/); cz 04:59 Pulse 70 MON; Pulse Ox 94% ; cz 05:14 BP 120 / 66 (auto/); cz 05:14 Pulse 70 MON; Pulse Ox 95% ; cz 05:29 BP 122 / 64 (auto/); cz 05:29 Pulse 66 MON; Pulse Ox 94% ; cz 05:44 BP 147 / 89 (auto/); cz 05:44 Pulse 74 MON; Pulse Ox 93% ; cz 05:59 BP 157 / 74 (auto/); cz 05:59 Pulse 72 MON; Pulse Ox 96% ; cz 07:09 BP 147 / 89; Pulse 83; Resp 16; Temp 96.3(O); Pulse Ox 97% on R/A; Pain 0/10; kr3 02:06 Body Mass Index 31.87 (115.67 kg, 190.50 cm) kmg1 MDM: 02:02 ECG WITH READING ER PHYS+CARDIAG ordered. EDMS 02:54 NS 0.9% 1000 ml IV at bolus once ordered. mm11 02:54 Ondansetron 4 mg IVP once ordered. mm11 02:54 IV Saline Lock ordered. mm11 02:54 Undress patient appropriately for examination ordered. mm11 02:55 Amylase Ordered. EDMS 02:55 Basic Metabolic Profile Ordered. EDMS 02:55 CBC with Diff Ordered. EDMS 02:55 Cardiac Injury Profile Ordered. EDMS 02:55 Lipase Ordered. EDMS 02:55 Liver Profile Ordered. EDMS 02:55 Troponin Ordered. EDMS 02:55 NOTHING BY MOUTH+DIET ordered. EDMS 03:11 Financial registration complete. h 03:22 Basic Metabolic Profile Reviewed. mm11 03:22 CBC with Diff Reviewed. mm11 03:22 Cardiac Injury Profile Reviewed. mm11 03:22 Amylase Reviewed. mm11 03:22 Lipase Reviewed. mm11 03:22 Liver Profile Reviewed. mm11 03:22 Troponin Reviewed. mm11 04:24 [facility] Payment Agreement was scanned into [employer] and attached to record. [facility] 04:48 NS 0.9% 1000 ml IV at bolus once ordered. 11 04:50 Meclizine 25 mg PO once ordered. [facility] 14:37 T-Sheet-- Draft Copy was scanned into [employer] and attached to record. 14:37 ECG/EKG was scanned into [employer] and attached to record. Administered Medications: 03:02 Drug: NS 0.9% 1000 ml [sodium chloride 0.9 % intravenous solution] Route: IV; Rate: cz bolus; Site: left antecubital; 03:03 Drug: Ondansetron 4 mg Route: IVP; Site: left antecubital; cz 04:51 Drug: NS 0.9% 1000 ml [sodium chloride 0.9 % intravenous solution] Route: IV; Rate: cz bolus; Site: left antecubital; 05:05 Drug: Meclizine 25 mg [meclizine 12.5 mg tablet (2 tabs)] Route: PO; cz Signatures: Dispatcher [employer] EDPA Hoa Enriquez RN RN kmg1 Jasson Lopez RN RN cz Lily Leung, Reg Reg gb Stephanie Vanegas RN RN carlos3 Ko Rodriguez, DO [facility] Pastora Gillespie [facility] The chart was reviewed and I authenticate all verbal orders and agree with the evaluation and treatment provided.Attachments: 04:24 [facility] Payment Agreement [facility] 14:37 T-Sheet-- Draft Copy gb 14:37 ECG/EKG gb Chart Complete MTDD
== END 2016-07-12 07:09 | disposition home or self-care (01) ==
LOC: M ED 01:56
DX: R42 Dizziness and giddiness (principal); R11.2 Nausea with vomiting, unspecified; I10 Essential (primary) hypertension; H40.9 Unspecified glaucoma; Z79.899 Other long term (current) drug therapy
CPT/HCPCS: 80048; 80076; 82150; 82550; 82553; 83690; 85025; 93005; 96374; 99284; J2405

== ENCOUNTER 2016-09-07 06:44 | Emergency (ER) | payer OTHER ==
[~2016-09-07] VITALS: Ht 190.5 cm; Wt 113.4 kg
[2016-09-07] MEDS ORDERED: LATA5OPD OU (06:54)
[2016-09-07] MEDS ORDERED: ACETAMINOPHEN 325 MG TAB PO ONE (07:45)
--- NOTE | 2016-09-07 08:07 | REP ---
Clinical: Right-sided abdominal pain. Technique: Upright view of the chest with supine and upright views of the abdomen and pelvis. Findings: Frontal upright view of the chest demonstrates no acute cardiopulmonary process or free air below the diaphragm to suspect pneumoperitoneum. Supine and upright views of the abdomen and pelvis demonstrate nonspecific bowel gas pattern without obstruction or perforation. No organomegaly. No abnormal calcifications. Skeletal structures normal for age. Impression: Nonspecific bowel gas pattern. Signed by Aris Strauss MD 09/07/2016 07:58 A
[2016-09-07 08:31] LABS: BASO % 0.5 % (0.0-1.0); EOS # 0.4 K/mm3 (0.0-0.50); EOS % 7.4 % (0.0-3.0); LARGE UNSTAINED CELL # 0.1 K/mm3 (0.0-0.4); LARGE UNSTAINED CELL % 2.9 % (0.0-4.0); LYMPH # 1.7 K/mm3 (1.5-4.5); LYMPH % 35.9 % (24.0-44.0); MEAN CORPUSCULAR HEMOGLOBIN 29.8 pg (27.0-33.0); MEAN CORPUSCULAR HGB CONC 35.3 g/dl (32.0-36.5); MEAN CORPUSCULAR VOLUME 84.3 fl (80.0-96.0); MONO # 0.3 K/mm3 (0.0-0.8); MONO % 5.1 % (0.0-5.0); NEUTROPHILS # 2.3 K/mm3 (1.8-7.7); NEUTROPHILS % 48.2 % (36.0-66.0); PLATELET COUNT, AUTOMATED 153 k/mm3 (150-450); RED CELL DISTRIBUTION WIDTH 13.3 % (11.5-14.5); WHITE BLOOD COUNT 4.8 K/mm3 (4.0-10.0)
[2016-09-07 08:52] LABS: ALBUMIN 3.6 GM/DL (3.2-5.2); ALBUMIN/GLOBULIN RATIO 0.97 (1.00-1.93); ALKALINE PHOSPHATASE 68 U/L (45-117); ALT/SGPT 48 U/L (12-78); ANION GAP 6 MEQ/L (8-16); AST/SGOT 23 U/L (15-37); BILIRUBIN,DIRECT 0.1 MG/DL (0.0-0.2); BILIRUBIN,TOTAL 0.6 MG/DL (0.2-1.0); BLOOD UREA NITROGEN 11 MG/DL (7-18); CALCIUM LEVEL 8.9 MG/DL (8.5-10.1); CARBON DIOXIDE LEVEL 31 MEQ/L (21-32); CHLORIDE LEVEL 105 MEQ/L (98-107); CREATININE FOR GFR 1.26 MG/DL (0.70-1.30); GLOMERULAR FILTRATION RATE > 60.0 (>60); GLUCOSE, FASTING 101 MG/DL (70-105); SODIUM LEVEL 142 MEQ/L (136-145); TOTAL PROTEIN 7.3 GM/DL (6.4-8.2)
[2016-09-07 09:14] VITALS: BP 146/92
== END 2016-09-07 09:15 | disposition home or self-care (01) ==
LOC: M ED 07:39
DX: S39.011A Strain of muscle, fascia and tendon of abdomen, initial encounter (principal); X58.XXXA Exposure to other specified factors, initial encounter; Y92.89 Other specified places as the place of occurrence of the external cause; Y93.89 Activity, other specified; Y99.8 Other external cause status; L73.9 Follicular disorder, unspecified; I10 Essential (primary) hypertension; Z87.442 Personal history of urinary calculi

== ENCOUNTER 2017-05-09 18:08 | Emergency (ER) | payer OTHER ==
[~2017-05-09] VITALS: Ht 190.5 cm; Wt 113.6 kg
[~2017-05-09 18:08] MED LIST: LATA5OPD OU
[2017-05-09] MEDS ORDERED: ATOR1TAB21 PO (18:25)
[2017-05-09] MEDS ORDERED: HYDR25TAB PO (18:25)
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
[2017-05-09] MEDS ORDERED: CYCL10TA PO (23:14)
[2017-05-09] MEDS ORDERED: IBUP-1022 PO (23:14)
[2017-05-09] MEDS ORDERED: IBUPROFEN 600 MG TAB PO ONE (23:15)
[2017-05-09] MEDS ORDERED: CYCLOBENZAPRINE 10 MG TAB PO ONE (23:15)
[2017-05-09] MEDS ORDERED: PERCOCET 5MG/325MG TAB PO ONE (23:15)
[2017-05-10 00:38] VITALS: BP 168/110
== END 2017-05-10 01:01 | disposition home or self-care (01) ==
LOC: M ED 18:08
DX: Z04.1 Encounter for examination and observation following transport accident (principal); M54.12 Radiculopathy, cervical region; V43.52XA Car driver injured in collision with other type car in traffic accident, initial encounter; Y92.410 Unspecified street and highway as the place of occurrence of the external cause; Y93.89 Activity, other specified; Y99.8 Other external cause status; I10 Essential (primary) hypertension; Z79.899 Other long term (current) drug therapy; Z87.442 Personal history of urinary calculi

== ENCOUNTER → 2017-05-11 | Outpatient (CLI) | payer OTHER ==
[~2017-05-11] MED LIST changes: +ATOR1TAB21 PO; +CYCL10TA PO; +HYDR25TAB PO; +IBUP-1022 PO; +PROHANCE 279.3MG/ML 15ML VIAL (A9576) As Ordered ONE; +PROHANCE 279.3MG/ML 5ML VIAL (A9576) As Ordered ONE
--- NOTE | 2017-05-12 09:21 | REP ---
MRI LUMBAR SPINE WITHOUT AND WITH CONTRAST: HISTORY: Back pain. Decreased signal intensity on T2-weighted images is present in the L5-S1 intervertebral discs. This represents disc degeneration. There is no disc bulge or herniation at the L1-2 and L2-3 levels. The nerves exit the neural foramina without compression. A diffuse disc bulge is present at the L3-4 level. There is minimal compression at the thecal sac. The L3 nerves exit the neural foramina without compression. A diffuse disc bulge is present at the L4-5 level. There is minimal compression of the thecal sac. The L4 nerves exit the neural foramina without compression. A diffuse disc bulge and small disc protrusion central and eccentric to the right are present at the L5-S1 level. There is minimal compression of the thecal sac and right S1 nerve as it exits the thecal sac. The L5 nerves exit the neural foramina without compression. The conus medullaris is normal in appearance terminating at the level of the L1-2 intervertebral disc. Normal signal intensity is present in the lumbar vertebral bodies. IMPRESSION: 1. Diffuse disc bulges at the L3-4 and L4-5 levels with minimal thecal sac compression. 2. Diffuse disc bulge and small disc protrusion at the L5-S1 level with minimal compression at the thecal sac and right S1 nerve as it exits the thecal sac. Signed by Gian Farley MD 05/12/2017 08:41 A
== END ==
LOC: M RAD 16:06
DX: M54.5 Low back pain (principal)

== ENCOUNTER → 2017-07-19 | Outpatient (CLI) | payer OTHER ==
[2017-07-19 11:28] LABS: HEMATOCRIT 45.8 % (42.0-52.0); HEMOGLOBIN 16.5 g/dl (14.0-18.0); MEAN CORPUSCULAR HEMOGLOBIN 29.2 pg (27.0-33.0); MEAN CORPUSCULAR VOLUME 81.1 fl (80.0-96.0); PLATELET COUNT, AUTOMATED 160 10^3/uL (150-450); RED BLOOD COUNT 5.65 10^6/uL (4.30-6.10); RED CELL DISTRIBUTION WIDTH 12.9 % (11.5-14.5); WHITE BLOOD COUNT 5.6 10^3/uL (4.0-10.0)
[2017-07-19 11:52] LABS: ESTIMATED AVERAGE GLUCOSE 137 MG/DL (60-110); HEMOGLOBIN A1c 6.4 %
[2017-07-19 12:06] LABS: ALBUMIN 3.8 GM/DL (3.2-5.2); ALBUMIN/GLOBULIN RATIO 1.03 (1.00-1.93); ALKALINE PHOSPHATASE 63 U/L (45-117); ALT/SGPT 60 U/L (12-78); ANION GAP 7 MEQ/L (8-16); AST/SGOT 32 U/L (7-37); BILIRUBIN,TOTAL 0.7 MG/DL (0.2-1.0); BLOOD UREA NITROGEN 13 MG/DL (7-18); CALCIUM LEVEL 9.1 MG/DL (8.5-10.1); CARBON DIOXIDE LEVEL 29 MEQ/L (21-32); CHLORIDE LEVEL 104 MEQ/L (98-107); CHOLESTEROL LEVEL 161 MG/DL (<200); CHOLESTEROL RISK RATIO 4.735 (<5); CREATININE FOR GFR 1.31 MG/DL (0.70-1.30); GLOMERULAR FILTRATION RATE > 60.0 (>60); GLUCOSE, FASTING 98 MG/DL (70-100); HDL CHOLESTEROL 34 MG/DL (>40); LDL CHOLESTEROL 88.6 MG/DL (<100); NON-HDL-C 127 MG/DL; POTASSIUM SERUM 4.1 MEQ/L (3.5-5.1); PROSTATIC SPECIFIC AG MONITOR 0.23 NG/ML (< 4.0); SODIUM LEVEL 140 MEQ/L (136-145); TOTAL PROTEIN 7.5 GM/DL (6.4-8.2); TRIGLYCERIDES LEVEL 192 MG/DL (<150)
== END ==
LOC: M LAB 10:48
DX: I10 Essential (primary) hypertension (principal); R53.83 Other fatigue
CPT/HCPCS: 84443

== ENCOUNTER 2017-09-26 21:45 | Emergency (ER) | payer SELFPAY, OTHER ==
[2017-09-27] MEDS: BENZONATATE 100 MG CAP PO (00:15)
== END 2017-09-27 00:33 | disposition home or self-care (01) ==
LOC: M ED 09-27 00:33
DX: J20.8 Acute bronchitis due to other specified organisms (principal); I10 Essential (primary) hypertension; E78.5 Hyperlipidemia, unspecified; Z87.442 Personal history of urinary calculi; Z79.899 Other long term (current) drug therapy
CPT/HCPCS: 71046

== ENCOUNTER 2017-11-01 01:24 | Emergency (ER) | payer MEDICAID, SELFPAY ==
[2017-11-01 03:13] LABS: BASO % 0.3 % (0.0-1.0); EOS # 0.2 10^3/uL (0.0-0.50); EOS % 1.7 % (0.0-3.0); HEMATOCRIT 45.5 % (42.0-52.0); HEMOGLOBIN 16.2 g/dl (13.5-17.5); IMMATURE GRANULOCYTE % 0.1 % (0-3.0); LYMPH # 1.4 10^3/uL (1.5-4.5); LYMPH % 15.7 % (24.0-44.0); MEAN CORPUSCULAR HEMOGLOBIN 29.5 pg (27.0-33.0); MEAN CORPUSCULAR HGB CONC 35.6 g/dl (32.0-36.5); MEAN CORPUSCULAR VOLUME 82.7 fl (80.0-96.0); MONO # 0.6 10^3/uL (0.0-0.8); MONO % 6.7 % (0.0-5.0); NEUTROPHILS # 6.9 10^3/uL (1.8-7.7); NEUTROPHILS % 75.5 % (36.0-66.0); PLATELET COUNT, AUTOMATED 173 10^3/uL (150-450); RED CELL DISTRIBUTION WIDTH 12.7 % (11.5-14.5); WHITE BLOOD COUNT 9.2 10^3/uL (4.0-10.0)
[2017-11-01 03:16] LABS: KETONE, URINE AUTO RFX NEGATIVE (NEGATIVE); LEUKOCYTE ESTERASE UR AUTO RFX NEGATIVE (NEGATIVE); NITRITE, URINE AUTO RFX NEGATIVE (NEGATIVE); RBC, URINE AUTO RFX 15 /HPF (0-3); SPECIFIC GRAVITY UR AUTO RFX 1.011 (1.002-1.035); SQUAM EPITHELIAL CELL UR AURFX 0 /HPF (0-6); WBC, URINE AUTO RFX 2 /HPF (0-3)
[2017-11-01 03:53] LABS: ALBUMIN 3.7 GM/DL (3.2-5.2); ALBUMIN/GLOBULIN RATIO 0.88 (1.00-1.93); ALKALINE PHOSPHATASE 65 U/L (45-117); ALT/SGPT 49 U/L (12-78); AMYLASE 84 U/L (25-115); ANION GAP 5 MEQ/L (8-16); AST/SGOT 30 U/L (7-37); BILIRUBIN,DIRECT < 0.1 MG/DL (0.0-0.2); BILIRUBIN,TOTAL 0.4 MG/DL (0.2-1.0); BLOOD UREA NITROGEN 15 MG/DL (7-18); CARBON DIOXIDE LEVEL 30 MEQ/L (21-32); CHLORIDE LEVEL 104 MEQ/L (98-107); CREATININE FOR GFR 1.63 MG/DL (0.70-1.30); GLOMERULAR FILTRATION RATE > 60.0 (>60); GLUCOSE, FASTING 83 MG/DL (70-100); LIPASE 194 U/L (73-393); POTASSIUM SERUM 3.8 MEQ/L (3.5-5.1); SODIUM LEVEL 139 MEQ/L (136-145); TOTAL PROTEIN 7.9 GM/DL (6.4-8.2)
[2017-11-01] MEDS: NS 1,000 ML IV (04:29)
[2017-11-01] MEDS: ONDANSETRON 4MG/2ML VIAL (J2405) IV (04:30)
[2017-11-01] MEDS: GASTROGRAFIN SOLUTION 30ML PO ×2 (04:40→05:10)
[2017-11-01] MEDS: MORPHINE 4 MG/ML 1ML VIAL/SYRINGE (J2270) IV (04:59)
[2017-11-01] MEDS ORDERED: ISOVUE-370 76% 100ML VIAL (Q9967) As Ordered (05:45)
== END 2017-11-01 08:11 | disposition home or self-care (01) ==
LOC: M ED 01:24
DX: N20.1 Calculus of ureter (principal); I10 Essential (primary) hypertension; E78.5 Hyperlipidemia, unspecified; K59.00 Constipation, unspecified; K57.30 Diverticulosis of large intestine without perforation or abscess without bleeding; Z79.899 Other long term (current) drug therapy
CPT/HCPCS: J2270

== ENCOUNTER → 2017-11-17 | Outpatient (REF) | payer OTHER ==
[2017-11-17 18:06] LABS: CREATININE FOR GFR 1.33 MG/DL (0.70-1.30); GLOMERULAR FILTRATION RATE > 60.0 (>60)
[2017-11-17 18:06] LABS: BLOOD UREA NITROGEN 11 MG/DL (7-18)
== END ==
LOC: M LABDRAW1 17:23
DX: M50.323 Other cervical disc degeneration at C6-C7 level (principal)
CPT/HCPCS: 82565

== ENCOUNTER → 2018-02-02 | Outpatient (REF) | payer OTHER ==
[2018-02-02 17:53] LABS: HEMATOCRIT 45.3 % (42.0-52.0); MEAN CORPUSCULAR HEMOGLOBIN 29.1 pg (27.0-33.0); MEAN CORPUSCULAR HGB CONC 35.3 g/dl (32.0-36.5); MEAN CORPUSCULAR VOLUME 82.4 fl (80.0-96.0); PLATELET COUNT, AUTOMATED 172 10^3/uL (150-450); RED CELL DISTRIBUTION WIDTH 13.1 % (11.5-14.5); WHITE BLOOD COUNT 6.3 10^3/uL (4.0-10.0)
[2018-02-02 18:14] LABS: ALBUMIN 3.7 GM/DL (3.2-5.2); ALKALINE PHOSPHATASE 54 U/L (45-117); ALT/SGPT 36 U/L (12-78); ANION GAP 6 MEQ/L (8-16); AST/SGOT 27 U/L (7-37); BILIRUBIN,TOTAL 0.5 MG/DL (0.2-1.0); BLOOD UREA NITROGEN 20 MG/DL (7-18); CALCIUM LEVEL 9.3 MG/DL (8.5-10.1); CARBON DIOXIDE LEVEL 31 MEQ/L (21-32); CHLORIDE LEVEL 104 MEQ/L (98-107); CREATININE FOR GFR 1.65 MG/DL (0.70-1.30); GLOMERULAR FILTRATION RATE > 60.0 (>60); GLUCOSE, FASTING 76 MG/DL (70-100); SODIUM LEVEL 141 MEQ/L (136-145); TOTAL PROTEIN 7.4 GM/DL (6.4-8.2)
== END ==
LOC: M SFHCPLAZ 14:51
DX: I10 Essential (primary) hypertension (principal)

== ENCOUNTER → 2018-02-16 | Outpatient (REF) | payer OTHER ==
[2018-02-16 18:38] LABS: ESTIMATED AVERAGE GLUCOSE 123 MG/DL (60-110); HEMOGLOBIN A1c 5.9 %
[2018-02-16 18:45] LABS: ALBUMIN 3.8 GM/DL (3.2-5.2); ALBUMIN/GLOBULIN RATIO 1.03 (1.00-1.93); ALKALINE PHOSPHATASE 52 U/L (45-117); ALT/SGPT 34 U/L (12-78); ANION GAP 11 MEQ/L (8-16); AST/SGOT 21 U/L (7-37); BILIRUBIN,TOTAL 0.4 MG/DL (0.2-1.0); BLOOD UREA NITROGEN 18 MG/DL (7-18); CALCIUM LEVEL 9.3 MG/DL (8.5-10.1); CARBON DIOXIDE LEVEL 28 MEQ/L (21-32); CHLORIDE LEVEL 104 MEQ/L (98-107); CREATININE FOR GFR 1.55 MG/DL (0.70-1.30); GLOMERULAR FILTRATION RATE > 60.0 (>60); GLUCOSE, FASTING 73 MG/DL (70-100); POTASSIUM SERUM 3.9 MEQ/L (3.5-5.1); SODIUM LEVEL 143 MEQ/L (136-145); TOTAL PROTEIN 7.5 GM/DL (6.4-8.2)
[2018-02-17 12:31] LABS: HEPATITIS B SURFACE ANTIGEN NEGATIVE (NEGATIVE)
[2018-02-17 12:59] LABS: HEPATITIS C VIRUS ABY INDEX 0.2 INDEX (<0.8)
[2018-02-17 13:00] LABS: HIV 1&2 SCREEN CENTAUR NEGATIVE (NEGATIVE)
== END ==
LOC: M SFHCPLAZ 15:21
DX: I10 Essential (primary) hypertension (principal); Z11.59 Encounter for screening for other viral diseases; Z11.4 Encounter for screening for human immunodeficiency virus [HIV]

== ENCOUNTER → 2018-03-23 | Outpatient (CLI) | payer OTHER | LOC: M RAD 10:17 | DX: M50.321 Other cervical disc degeneration at C4-C5 level (principal); N13.30 Unspecified hydronephrosis ==

== ENCOUNTER → 2018-04-19 | Outpatient (CLI) | payer OTHER | LOC: M RAD 18:13 | DX: M51.27 Other intervertebral disc displacement, lumbosacral region (principal) | CPT/HCPCS: 72148 ==

== ENCOUNTER 2018-04-27 07:14 | Emergency (ER) | payer OTHER ==
[2018-04-27] MEDS: METOCLOPRAMIDE INJ 10MG/2ML VIAL (J2765) IV (08:37)
[2018-04-27] MEDS: diphenhydrAMINE INJ 50MG/ML VIAL (J1200) IV (08:37)
[2018-04-27] MEDS: LISINOPRIL 20 MG TAB PO (08:37)
[2018-04-27] MEDS: NS 1,000 ML IV (08:38)
[2018-04-27 09:04] LABS: ALBUMIN 3.5 GM/DL (3.2-5.2); ALBUMIN/GLOBULIN RATIO 0.97 (1.00-1.93); ALKALINE PHOSPHATASE 52 U/L (45-117); ALT/SGPT 41 U/L (12-78); ANION GAP 5 MEQ/L (8-16); AST/SGOT 25 U/L (7-37); BILIRUBIN,DIRECT 0.1 MG/DL (0.0-0.2); BILIRUBIN,TOTAL 0.6 MG/DL (0.2-1.0); BLOOD UREA NITROGEN 15 MG/DL (7-18); CALCIUM LEVEL 9.1 MG/DL (8.5-10.1); CARBON DIOXIDE LEVEL 32 MEQ/L (21-32); CHLORIDE LEVEL 103 MEQ/L (98-107); CPK CREATINE PHOSPHOKINASE 320 U/L (39-308); FREE THYROXINE INDEX 2.1 % (1.4-3.8); GLOMERULAR FILTRATION RATE > 60.0 (>60); GLUCOSE, FASTING 88 MG/DL (70-100); LIPASE 139 U/L (73-393); MB/CK RELATIVE INDEX 0.41 (< OR =4); SODIUM LEVEL 140 MEQ/L (136-145); T UPTAKE 31 % (33-40); THYROXINE (T4) 6.8 UG/DL (4.5-12.0); TOTAL PROTEIN 7.1 GM/DL (6.4-8.2); TROPONIN I < 0.02 NG/ML (< 0.10)
[2018-04-27] MEDS: KETOROLAC 30 MG/ML VIAL (J1885) IV (09:04)
[2018-04-27 09:23] LABS: BASO % 0.7 % (0.0-1.0); EOS # 0.2 10^3/uL (0.0-0.50); EOS % 3.5 % (0.0-3.0); HEMATOCRIT 44.4 % (42.0-52.0); HEMOGLOBIN 15.8 g/dl (13.5-17.5); IMMATURE GRANULOCYTE % 0.2 % (0-3.0); LYMPH # 2.1 10^3/uL (1.5-4.5); MEAN CORPUSCULAR HEMOGLOBIN 29.5 pg (27.0-33.0); MEAN CORPUSCULAR HGB CONC 35.6 g/dl (32.0-36.5); MONO # 0.4 10^3/uL (0.0-0.8); MONO % 7.6 % (0.0-5.0); NEUTROPHILS # 2.6 10^3/uL (1.8-7.7); PLATELET COUNT, AUTOMATED 166 10^3/uL (150-450); RED BLOOD COUNT 5.35 10^6/uL (4.30-6.10); RED CELL DISTRIBUTION WIDTH 12.8 % (11.5-14.5); WHITE BLOOD COUNT 5.4 10^3/uL (4.0-10.0)
== END 2018-04-27 11:50 | disposition home or self-care (01) ==
LOC: M ED 07:14
DX: I10 Essential (primary) hypertension (principal); R51 Headache; L98.9 Disorder of the skin and subcutaneous tissue, unspecified; M54.5 Low back pain; Z79.899 Other long term (current) drug therapy
CPT/HCPCS: J1200

== ENCOUNTER → 2018-05-11 | Outpatient (CLI) | payer OTHER | LOC: M RAD 17:16 | DX: M47.812 Spondylosis without myelopathy or radiculopathy, cervical region (principal) | CPT/HCPCS: 72141 ==

== ENCOUNTER 2018-05-13 00:28 | Emergency (ER) | payer MEDICAID, SELFPAY, OTHER ==
[2018-05-13] MEDS: KETOROLAC 30 MG/ML VIAL (J1885) IV ×2 (01:00)
[2018-05-13] MEDS: NS 1,000 ML IV ×4 (01:00→02:15)
[2018-05-13 01:20] LABS: BASO % 0.5 % (0.0-1.0); EOS # 0.2 10^3/uL (0.0-0.50); EOS % 2.4 % (0.0-3.0); HEMATOCRIT 44.9 % (42.0-52.0); HEMOGLOBIN 16.2 g/dl (13.5-17.5); IMMATURE GRANULOCYTE % 0.1 % (0-3.0); LYMPH # 1.7 10^3/uL (1.5-4.5); LYMPH % 19.3 % (24.0-44.0); MEAN CORPUSCULAR HEMOGLOBIN 29.6 pg (27.0-33.0); MEAN CORPUSCULAR HGB CONC 36.1 g/dl (32.0-36.5); MEAN CORPUSCULAR VOLUME 81.9 fl (80.0-96.0); MONO # 0.7 10^3/uL (0.0-0.8); NEUTROPHILS # 6.2 10^3/uL (1.8-7.7); NEUTROPHILS % 69.7 % (36.0-66.0); PLATELET COUNT, AUTOMATED 172 10^3/uL (150-450); RED BLOOD COUNT 5.48 10^6/uL (4.30-6.10); RED CELL DISTRIBUTION WIDTH 12.7 % (11.5-14.5); WHITE BLOOD COUNT 8.9 10^3/uL (4.0-10.0)
[2018-05-13 01:23] LABS: APPEARANCE, URINE CLEAR (CLEAR); BACTERIA, URINE AUTO NEGATIVE (NEGATIVE); BILIRUBIN, URINE AUTO NEGATIVE (NEGATIVE); BLOOD, URINE BLOOD 2+ (NEGATIVE); COLOR, URINE STRAW (YELLOW); GLUCOSE, URINE (UA) AUTO NEGATIVE (NEGATIVE); KETONE, URINE AUTO NEGATIVE (NEGATIVE); LEUKOCYTE ESTERASE, URINE AUTO NEGATIVE (NEGATIVE); MUCUS, URINE SMALL (NEGATIVE); NITRITE, URINE AUTO NEGATIVE (NEGATIVE); PROTEIN, URINE AUTO 2+ mg/dL (NEGATIVE); RBC, URINE AUTO 9 /HPF (0-3); SPECIFIC GRAVITY URINE AUTO 1.011 (1.002-1.035); SQUAMOUS EPITHELIAL CELL UR AU 0 /HPF (0-6); UROBILINOGEN, URINE AUTO 0.2 mg/dL (0.0-2.0); WBC, URINE AUTO 0 /HPF (0-3)
[2018-05-13] MEDS: TAMSULOSIN 0.4 MG CAP PO ×2 (01:30)
[2018-05-13 01:46] LABS: ALBUMIN 3.4 GM/DL (3.2-5.2); ALBUMIN/GLOBULIN RATIO 0.92 (1.00-1.93); ALKALINE PHOSPHATASE 55 U/L (45-117); ALT/SGPT 39 U/L (12-78); ANION GAP 7 MEQ/L (8-16); AST/SGOT 23 U/L (7-37); BILIRUBIN,DIRECT < 0.1 MG/DL (0.0-0.2); BILIRUBIN,TOTAL 0.2 MG/DL (0.2-1.0); BLOOD UREA NITROGEN 22 MG/DL (7-18); CARBON DIOXIDE LEVEL 27 MEQ/L (21-32); CHLORIDE LEVEL 107 MEQ/L (98-107); GLOMERULAR FILTRATION RATE > 60.0 (>60); GLUCOSE, FASTING 123 MG/DL (70-100); LIPASE 185 U/L (73-393); POTASSIUM SERUM 3.9 MEQ/L (3.5-5.1); SODIUM LEVEL 141 MEQ/L (136-145); TOTAL PROTEIN 7.1 GM/DL (6.4-8.2)
== END 2018-05-13 03:10 | disposition home or self-care (01) ==
LOC: M ED 00:28
DX: N20.1 Calculus of ureter (principal); I10 Essential (primary) hypertension; Z87.442 Personal history of urinary calculi; Z79.899 Other long term (current) drug therapy
CPT/HCPCS: J1885

== ENCOUNTER 2018-07-29 09:01 | Emergency (ER) | payer OTHER, MEDICAID ==
[~2018-07-29] VITALS: Ht 190.5 cm; Wt 113.6 kg
[~2018-07-29 09:01] MED LIST changes: +AMOX500C PO; +APAP325T4 PO; +FLOM0.4C39 PO; +LISI-538 PO; +LISI10TA4 PO; +MUCI120T PO; +NYQU1LIQ PO; +PERC5TAB12 PO; -PROHANCE 279.3MG/ML 15ML VIAL (A9576) As Ordered ONE; -PROHANCE 279.3MG/ML 5ML VIAL (A9576) As Ordered ONE; +TESS100C PO; +XALA0.007 OP; +ZOFR4TAB14 PO
[2018-07-29] MEDS ORDERED: NAPR-50 PO (10:21)
[2018-07-29 10:30] VITALS: BP 178/106
--- NOTE | 2018-07-29 10:33 | REP ---
PA CHEST WITH RIGHT RIBS: 07/29/2018. COMPARISON: Chest x-ray 09/26/2017. CLINICAL HISTORY: Trauma, patient fell. Pain mid lateral right ribs. FINDINGS: PA chest shows lungs well inflated and clear. There is no effusion, infiltrate, lateral pleural thickening, apical scar, pneumothorax. The cardiomediastinal silhouette and airway normal. The aorta is unremarkable. Visualized clavicles and shoulders intact. Ribs on the PA chest unremarkable. Some spurring of the lower thoracic vertebral bodies suggested. RIGHT RIBS: Four views show the posterior rib articulations intact. I see no visible or displaced rib fracture, focal rib lesion, pleural effusion, or pneumothorax. IMPRESSION: 1. Negative PA chest and right rib series. Electronically Signed by Luke Langston MD 07/29/2018 07:36 P
--- NOTE | 2018-07-29 10:34 | REP ---
LEFT FOREARM: 07/29/2018. CLINICAL HISTORY: Fell on outstretched hand. COMPARISON: Left wrist series today. FINDINGS: Two-views show the radius and ulna intact. There is no radial head fracture, elbow joint effusion, foreign body, or focal bone lesion. IMPRESSION: 1. Negative for fracture about the left forearm. Electronically Signed by Luke Langston MD 07/29/2018 07:36 P
--- NOTE | 2018-07-29 10:35 | REP ---
LEFT WRIST COMPLETE: 07/29/2018 CLINICAL HISTORY: Fell on outstretched hand. COMPARISON: Forearm series today. FINDINGS: Four views show the distal radius and ulna, carpal bones and their joint spaces, as well as visualized metacarpals and MCP joints all intact. There is no radiopaque foreign body, avulsion, or other acute bony finding. Some minor soft tissue swelling dorsal aspect of the hand and wrist. IMPRESSION: 1. No fracture, avulsion, subluxation, or focal bone lesion about the wrist. Minimal soft tissue swelling about the wrist, dorsal hand, and distal forearm. No acute bony finding. Electronically Signed by Luke Langston MD 07/29/2018 07:38 P
== END 2018-07-29 10:44 | disposition home or self-care (01) ==
LOC: M ED 09:01
DX: S20.211A Contusion of right front wall of thorax, initial encounter (principal); S63.502A Unspecified sprain of left wrist, initial encounter; W00.9XXA Unspecified fall due to ice and snow, initial encounter; Y92.89 Other specified places as the place of occurrence of the external cause; Y93.9 Activity, unspecified; Y99.0 Civilian activity done for income or pay; I10 Essential (primary) hypertension; Z79.899 Other long term (current) drug therapy; Z88.8 Allergy status to other drugs, medicaments and biological substances

== ENCOUNTER 2018-07-31 06:24 | Emergency (ER) | payer OTHER, MEDICAID ==
[~2018-07-31] VITALS: Ht 190.5 cm; Wt 113.6 kg
[~2018-07-31 06:24] MED LIST changes: +NAPR-50 PO
[2018-07-31] MEDS ORDERED: MELO15TA28 (06:33)
[2018-07-31 07:02] VITALS: BP 150/84
[2018-07-31] MEDS ORDERED: TRAM50TA2 PO (07:08)
== END 2018-07-31 07:22 | disposition home or self-care (01) ==
LOC: M ED 06:24
DX: S63.502A Unspecified sprain of left wrist, initial encounter (principal); W00.0XXA Fall on same level due to ice and snow, initial encounter; Y92.89 Other specified places as the place of occurrence of the external cause; I10 Essential (primary) hypertension; R51 Headache; Z87.442 Personal history of urinary calculi; Z88.8 Allergy status to other drugs, medicaments and biological substances; Z79.899 Other long term (current) drug therapy; Z79.1 Long term (current) use of non-steroidal anti-inflammatories (NSAID)

== ENCOUNTER → 2018-08-30 | Outpatient (CLI) | payer OTHER ==
[~2018-08-30] MED LIST changes: +MELO15TA28; +TRAM50TA2 PO
== END ==
LOC: M LAB 15:22
DX: R76.11 Nonspecific reaction to tuberculin skin test without active tuberculosis (principal)

== ENCOUNTER 2018-09-06 07:30 | Outpatient (RCR) | payer OTHER ==
[2018-09-09] MEDS ORDERED: FAMO20TA PO (11:29)
[2018-09-09] MEDS ORDERED: SUCR1SS PO (11:30)
[2018-09-10] MEDS ORDERED: KETO10TAB PO (08:55)
== END 2018-09-10 ==
LOC: M OT 07:30
PROVIDERS: ATTEND Orthopaedic Surgery
DX: S63.502D Unspecified sprain of left wrist, subsequent encounter (principal); W18.30XD Fall on same level, unspecified, subsequent encounter; Y92.009 Unspecified place in unspecified non-institutional (private) residence as the place of occurrence of the external cause

== ENCOUNTER 2018-09-09 08:59 | Emergency (ER) | payer OTHER ==
[~2018-09-09 08:59] MED LIST changes: +LATA0.0013 OU; -LATA5OPD OU; -NAPR-50 PO; +NAPR-837 PO
[2018-09-09] MEDS ORDERED: NS 1,000 ML IV ONE (09:15)
[2018-09-09 09:27] LABS: BASO % 0.1 % (0.0-1.0); EOS # 0.1 10^3/uL (0.0-0.50); EOS % 1.2 % (0.0-3.0); HEMATOCRIT 44.3 % (42.0-52.0); HEMOGLOBIN 16.1 g/dl (13.5-17.5); MEAN CORPUSCULAR HEMOGLOBIN 29.9 pg (27.0-33.0); MEAN CORPUSCULAR HGB CONC 36.3 g/dl (32.0-36.5); MEAN CORPUSCULAR VOLUME 82.2 fl (80.0-96.0); MONO # 0.5 10^3/uL (0.0-0.8); MONO % 6.2 % (0.0-5.0); NEUTROPHILS # 4.9 10^3/uL (1.8-7.7); NEUTROPHILS % 65.4 % (36.0-66.0); PLATELET COUNT, AUTOMATED 186 10^3/uL (150-450); RED BLOOD COUNT 5.39 10^6/uL (4.30-6.10); WHITE BLOOD COUNT 7.4 10^3/uL (4.0-10.0)
[2018-09-09] MEDS ORDERED: GI COCKTAIL 50ML BTL(HYOSCYAMINE/MAALOX/LIDOCAINE VISCOUS)(1:3:1) PO ONE (09:30)
--- NOTE | 2018-09-09 09:38 | REP ---
Clinical: Constipation and abdominal pain. Technique: Upright view of the chest with supine and upright views of the abdomen and pelvis. Findings: Frontal upright view of the chest demonstrates no acute cardiopulmonary process or free air below the diaphragm to suspect pneumoperitoneum. Supine and upright views of the abdomen and pelvis demonstrate nonspecific bowel gas pattern without obstruction or perforation. No organomegaly. No abnormal calcifications. Skeletal structures normal for age. Impression: Nonspecific bowel gas pattern. Electronically Signed by Aris Strauss MD 09/09/2018 09:30 A
[2018-09-09 09:53] LABS: ALBUMIN 3.8 GM/DL (3.2-5.2); ALT/SGPT 36 U/L (12-78); BILIRUBIN,DIRECT 0.1 MG/DL (0.0-0.2); BILIRUBIN,TOTAL 0.6 MG/DL (0.2-1.0); BLOOD UREA NITROGEN 13 MG/DL (7-18); CALCIUM LEVEL 9.3 MG/DL (8.5-10.1); CARBON DIOXIDE LEVEL 27 MEQ/L (21-32); CHLORIDE LEVEL 104 MEQ/L (98-107); CREATININE FOR GFR 1.29 MG/DL (0.70-1.30); GLOMERULAR FILTRATION RATE > 60.0 (>60); GLUCOSE, FASTING 99 MG/DL (70-100); LIPASE 159 U/L (73-393); POTASSIUM SERUM 4.1 MEQ/L (3.5-5.1); SODIUM LEVEL 138 MEQ/L (136-145); TOTAL PROTEIN 7.4 GM/DL (6.4-8.2)
[2018-09-09] MEDS ORDERED: SUCRALFATE SUSP 1GM/10ML UD PO ONE (10:15)
[2018-09-09] MEDS ORDERED: DICYCLOMINE INJ 20MG/2ML (J0500) IM ONE (10:15)
--- NOTE | 2018-09-09 10:29 | ECGEPIP ---
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
[2018-09-09 10:41] LABS: CPK CREATINE PHOSPHOKINASE 418 U/L (39-308); MB/CK RELATIVE INDEX 0.38 (< OR =4); TROPONIN I < 0.02 NG/ML (< 0.10)
[2018-09-09] MEDS ORDERED: FAMO20TA PO (11:29)
[2018-09-09] MEDS ORDERED: SUCR1SS PO (11:30)
[2018-09-09 11:36] VITALS: BP 151/92
[2018-09-10] MEDS ORDERED: KETO10TAB PO (08:55)
== END 2018-09-09 11:39 | disposition home or self-care (01) ==
LOC: M ED 08:59 → EDBD 08:59 → M ED 11:39
DX: R10.9 Unspecified abdominal pain (principal); I10 Essential (primary) hypertension; Z88.8 Allergy status to other drugs, medicaments and biological substances; Z79.891 Long term (current) use of opiate analgesic; Z79.899 Other long term (current) drug therapy
CPT/HCPCS: 74021; 80048; 80076; 82550; 82553; 83605; 83690; 85025; 93005; 96372; 99284; J0500

== ENCOUNTER 2018-09-10 05:47 | Emergency (ER) | payer OTHER ==
[~2018-09-10] VITALS: Ht 190.5 cm; Wt 113.6 kg
[~2018-09-10 05:47] MED LIST changes: +FAMO20TA PO; +SUCR1SS PO
[2018-09-10] MEDS ORDERED: NS 1,000 ML IV ONE (06:15)
[2018-09-10] MEDS ORDERED: KETOROLAC 30 MG/ML VIAL (J1885) IV ONE (06:15)
[2018-09-10 06:24] LABS: BASO % 0.1 % (0.0-1.0); EOS # 0.1 10^3/uL (0.0-0.50); EOS % 1.6 % (0.0-3.0); HEMOGLOBIN 16.6 g/dl (13.5-17.5); LYMPH # 2.2 10^3/uL (1.5-4.5); LYMPH % 30.5 % (24.0-44.0); MEAN CORPUSCULAR HEMOGLOBIN 29.3 pg (27.0-33.0); MEAN CORPUSCULAR HGB CONC 35.3 g/dl (32.0-36.5); MEAN CORPUSCULAR VOLUME 82.9 fl (80.0-96.0); MONO # 0.6 10^3/uL (0.0-0.8); NEUTROPHILS # 4.4 10^3/uL (1.8-7.7); NEUTROPHILS % 59.7 % (36.0-66.0); PLATELET COUNT, AUTOMATED 187 10^3/uL (150-450); RED BLOOD COUNT 5.67 10^6/uL (4.30-6.10); WHITE BLOOD COUNT 7.4 10^3/uL (4.0-10.0)
[2018-09-10 06:35] LABS: ALBUMIN 3.8 GM/DL (3.2-5.2); ALT/SGPT 38 U/L (12-78); AMYLASE 85 U/L (25-115); BILIRUBIN,DIRECT 0.1 MG/DL (0.0-0.2); BILIRUBIN,TOTAL 0.5 MG/DL (0.2-1.0); BLOOD UREA NITROGEN 14 MG/DL (7-18); CALCIUM LEVEL 8.8 MG/DL (8.5-10.1); CARBON DIOXIDE LEVEL 30 MEQ/L (21-32); CHLORIDE LEVEL 104 MEQ/L (98-107); CREATININE FOR GFR 1.31 MG/DL (0.70-1.30); GLOMERULAR FILTRATION RATE > 60.0 (>60); GLUCOSE, FASTING 110 MG/DL (70-100); LIPASE 210 U/L (73-393); POTASSIUM SERUM 3.7 MEQ/L (3.5-5.1); SODIUM LEVEL 139 MEQ/L (136-145); TOTAL PROTEIN 7.7 GM/DL (6.4-8.2)
[2018-09-10 06:52] LABS: CPK CREATINE PHOSPHOKINASE 656 U/L (39-308); MB/CK RELATIVE INDEX 0.24 (< OR =4); TROPONIN I < 0.02 NG/ML (< 0.10)
[2018-09-10] MEDS ORDERED: ISOVUE-370 76% 125ML VIAL (Q9967 PER ML) As Ordered ONE (06:56)
[2018-09-10] MEDS ORDERED: FAMOTIDINE 20 MG TAB PO ONE (07:15)
[2018-09-10 07:17] LABS: AMORPHOUS SEDIMENT SMALL (NEGATIVE); APPEARANCE, URINE CLEAR (CLEAR); BACTERIA, URINE AUTO NEGATIVE (NEGATIVE); BILIRUBIN, URINE AUTO NEGATIVE (NEGATIVE); BLOOD, URINE BLOOD 1+ (NEGATIVE); COLOR, URINE YELLOW (YELLOW); GLUCOSE, URINE (UA) AUTO NEGATIVE (NEGATIVE); KETONE, URINE AUTO NEGATIVE (NEGATIVE); LEUKOCYTE ESTERASE, URINE AUTO NEGATIVE (NEGATIVE); NITRITE, URINE AUTO NEGATIVE (NEGATIVE); PROTEIN, URINE AUTO 2+ mg/dL (NEGATIVE); RBC, URINE AUTO 16 /HPF (0-3); SPECIFIC GRAVITY URINE AUTO 1.012 (1.002-1.035); SQUAMOUS EPITHELIAL CELL UR AU 0 /HPF (0-6); UROBILINOGEN, URINE AUTO 0.2 mg/dL (0.0-2.0); WBC, URINE AUTO 1 /HPF (0-3)
--- NOTE | 2018-09-10 07:56 | REPVR ---
EXAM: CT Abdomen and Pelvis With Contrast EXAM DATE/TIME: 09/10/2018 7:32 AM CLINICAL HISTORY: 38 years old, male; Pain; Abdominal pain; Generalized TECHNIQUE: Imaging protocol: Axial computed tomography images of the abdomen and pelvis with intravenous contrast. Coronal and sagittal reformatted images were created and reviewed. Radiation optimization: All CT scans at this facility use at least one of these dose optimization techniques: automated exposure control; mA and/or kV adjustment per patient size (includes targeted exams where dose is matched to clinical indication); or iterative reconstruction. Contrast material: ISOVUE 370 Contrast volume: 100 ml Contrast route: IV COMPARISON: CT ABD PELVIS W/O CONTRAST 05/13/2018 1:06 AM FINDINGS: Lower thorax: No acute findings. ABDOMEN: Liver: The liver is hypoattenuated. Gallbladder and bile ducts: Normal. No calcified stones. No ductal dilation. Pancreas: Normal. No ductal dilation. Spleen: There is small perihepatic and perisplenic ascites. There are multiple shotty mesenteric lymph nodes. Adrenals: Normal. No mass. Kidneys and ureters: There is a 2-3 mm left lower renal pole stone. There is mild to moderate left-sided hydronephrosis and hydroureter to the level of the midureter where there is transition on axial image 99 and coronal image 48. No hyperdense ureteral stone seen. Stomach and bowel: There is thickening and hyperemia of multiple small bowel loops more centered in the right abdomen with surrounding stranding and edema. Appendix: No evidence of appendicitis. PELVIS: Bladder: Unremarkable as visualized. Reproductive: Unremarkable as visualized. ABDOMEN and PELVIS: Intraperitoneal space: Normal. No free air. No significant fluid collection. Bones/joints: No acute fracture. No dislocation. Soft tissues: Unremarkable. Vasculature: Normal. No abdominal aortic aneurysm. Lymph nodes: See Spleen Finding. IMPRESSION: 1. Multiple thickened and hyperemic small bowel loops coupled with mesenteric stranding and edema with reactive mesenteric lymph nodes and small perihepatic and perisplenic free fluid suggestive of enteritis infectious or inflammatory. Ischemic process is less likely especially in view of the widely patent mesenteric arteries. 2. Fatty infiltration of the liver. 3. 2-3 mm nonobstructing left lower renal pole stone. 4. Mild to moderate left-sided hydronephrosis and hydroureter through the midureter where there is a transitional zone suspicious for stricture. Correlation with CT urogram is suggested. Electronically signed by: Jaime Schafer On 09/10/2018 07:56:09 AM
[2018-09-10] MEDS ORDERED: MORPHINE 2 MG/ML 1ML SYRINGE (J2270) IV ONE (08:15)
[2018-09-10] MEDS ORDERED: KETO10TAB PO (08:55)
[2018-09-10 09:36] VITALS: BP 138/94
--- NOTE | 2018-09-10 10:52 | ED PDOC ---
Post-Departure Follow-Up atif colvin and kaity faaxed formal report of ct abd/p for fu Bryanna Umana MD Sep 10, 2018 10:52
--- NOTE | 2018-09-10 12:32 | ECGEPIP ---
Stationary ECG Study 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
== END 2018-09-10 09:38 | disposition home or self-care (01) ==
LOC: M ED 05:47
DX: N20.1 Calculus of ureter (principal); N20.0 Calculus of kidney; K76.0 Fatty (change of) liver, not elsewhere classified; I10 Essential (primary) hypertension; E78.5 Hyperlipidemia, unspecified; Z79.891 Long term (current) use of opiate analgesic; Z79.899 Other long term (current) drug therapy; Z88.8 Allergy status to other drugs, medicaments and biological substances
CPT/HCPCS: 74177; 80048; 80076; 81001; 82150; 82550; 82553; 83605; 83690; 85025; 93005; 99284; J1885; J2270; Q9967

== ENCOUNTER 2018-10-09 07:30 | Outpatient (RCR) | payer OTHER ==
[~2018-10-09 07:30] MED LIST changes: +KETO10TAB PO
== END 2018-10-10 ==
LOC: M OT 07:30
PROVIDERS: ATTEND Orthopaedic Surgery
DX: S63.602D Unspecified sprain of left thumb, subsequent encounter (principal); W18.30XD Fall on same level, unspecified, subsequent encounter; Y92.009 Unspecified place in unspecified non-institutional (private) residence as the place of occurrence of the external cause

== ENCOUNTER 2018-10-25 10:53 | Outpatient (RCR) | payer OTHER | END 2018-11-10 | LOC: M OT 10:53 | PROVIDERS: ATTEND Orthopaedic Surgery | DX: S63.602D Unspecified sprain of left thumb, subsequent encounter (principal); W18.30XD Fall on same level, unspecified, subsequent encounter; Y92.009 Unspecified place in unspecified non-institutional (private) residence as the place of occurrence of the external cause ==

== ENCOUNTER → 2018-11-16 | Outpatient (REF) | payer OTHER, SELFPAY | LOC: M SMT 16:48 | PROVIDERS: ATTEND Nurse Practitioner Family | DX: N13.30 Unspecified hydronephrosis (principal) ==

== ENCOUNTER 2018-12-29 13:21 | Emergency (ER) | payer MEDICAID, OTHER, SELFPAY ==
[~2018-12-29] VITALS: Ht 190.5 cm; Wt 112.7 kg
[2018-12-29 14:09] LABS: BASO % 0.5 % (0.0-1.0); EOS # 0.4 10^3/uL (0.0-0.50); EOS % 4.6 % (0.0-3.0); HEMATOCRIT 41.7 % (42.0-52.0); LYMPH # 2.3 10^3/uL (1.5-4.5); LYMPH % 29.4 % (24.0-44.0); MEAN CORPUSCULAR HEMOGLOBIN 29.9 pg (27.0-33.0); MEAN CORPUSCULAR VOLUME 83.2 fl (80.0-96.0); MONO # 0.8 10^3/uL (0.0-0.8); MONO % 10.1 % (0.0-5.0); NEUTROPHILS # 4.2 10^3/uL (1.8-7.7); NEUTROPHILS % 55.1 % (36.0-66.0); PLATELET COUNT, AUTOMATED 148 10^3/uL (150-450); RED BLOOD COUNT 5.01 10^6/uL (4.30-6.10); WHITE BLOOD COUNT 7.7 10^3/uL (4.0-10.0)
[2018-12-29] MEDS ORDERED: NS 1,000 ML IV ONE (14:15)
[2018-12-29] MEDS ORDERED: KETOROLAC 30 MG/ML VIAL (J1885) IV ONE (14:15)
[2018-12-29] MEDS ORDERED: ONDANSETRON 4MG/2ML VIAL (J2405) IV ONE (14:15)
--- NOTE | 2018-12-29 15:08 | REP ---
CT ABDOMEN AND PELVIS WITHOUT CONTRAST: CT abdomen and pelvis performed without oral or IV contrast. Sagittal and coronal reconstruction images are performed. Visualized lung bases demonstrate dependent atelectatic changes. Liver is grossly unremarkable. Spleen, adrenals, pancreas, and right kidney are unremarkable. There is no right hydronephrosis. There is moderate left hydronephrosis with mild left renal enlargement diffusely and perinephric stranding. There is moderate dilatation of the proximal left ureter. There is a 4 mm calculus in the mid left ureter at the L5 vertebral body level. Urinary bladder is collapsed with no definite intraluminal calculus. Punctate calculus is seen in the mid to left renal collecting system. There is no abdominal aortic aneurysm. There is no adenopathy. There is no free air or free fluid. There is no bowel wall thickening. There is no evidence of appendicitis. I see no pelvic mass. IMPRESSION: There is a 4 mm calculus in the mid left ureter at the L5 vertebral body level. There is moderate left hydroureteronephrosis proximal to this. There is also a punctate calculus in the mid left renal collecting system. Electronically Signed by Hans Yi MD 12/31/2018 07:28 P
[2018-12-29] MEDS ORDERED: ACETAMINOPHEN 325 MG TAB PO ONE (15:15)
[2018-12-29] MEDS ORDERED: NORC1TAB7 PO (16:01)
[2018-12-29 16:14] VITALS: BP 175/99
[2019-01-02] MEDS ORDERED: MAPA325T2 PO (14:34)
== END 2018-12-29 16:28 | disposition home or self-care (01) ==
LOC: M ED 13:21
DX: N20.1 Calculus of ureter (principal); I10 Essential (primary) hypertension; Z79.899 Other long term (current) drug therapy; Z88.8 Allergy status to other drugs, medicaments and biological substances
CPT/HCPCS: 36415; 74176; 80047; 81001; 85025; 96361; 96374; 96375; 99284; J1885; J2405

== ENCOUNTER → 2018-12-31 | Outpatient (CLI) | payer SELFPAY ==
[~2018-12-31] MED LIST changes: +MAPA325T2 PO; +NORC1TAB7 PO
[2018-12-31 10:05] LABS: CALCIUM LEVEL 8.8 MG/DL (8.5-10.1); CREATININE FOR GFR 2.63 MG/DL (0.70-1.30); POTASSIUM SERUM 3.5 MEQ/L (3.5-5.1)
== END ==
LOC: M LAB 09:22
PROVIDERS: ATTEND Physician Assistant
DX: N21.1 Calculus in urethra (principal)

== ENCOUNTER → 2019-01-01 | Outpatient (CLI) | payer OTHER, SELFPAY ==
--- NOTE | 2019-01-02 03:14 | REP ---
Clinical: Nephrolithiasis. Technique: Two supine views of the abdomen and pelvis. Comparison: Noncontrast CT dated 12/29/2018. Findings: Evaluation of the urinary tract system is significantly limited due to overlying bowel gas. No obvious intrarenal calculi are appreciated and a 4 mm calculus in the mid-left ureter based on recent CT is not visible by x-ray evaluation. Bowel gas pattern is nonspecific although mild/moderate fecal stasis is suggested. No organomegaly. Skeletal structures are intact. Impression: Intrarenal and left ureteral calculus not visible by radiographic evaluation. Electronically Signed by Aris Strauss MD 01/02/2019 03:06 A
== END ==
LOC: M SMT 14:32
PROVIDERS: ATTEND Nurse Practitioner Family
DX: N20.0 Calculus of kidney (principal)

== ENCOUNTER 2019-01-03 10:32 | Day surgery (SDC) | payer SELFPAY ==
[~2019-01-03] VITALS: Ht 190.5 cm; Wt 112.5 kg
[~2019-01-03 10:32] MED LIST changes: +LR 1,000 ML IV ONE
[2019-01-03] MEDS ORDERED: PROPOFOL 200 MG/20 ML VIAL As Ordered ONE (11:29)
[2019-01-03] MEDS ORDERED: dexameTHASONE 4 MG/ML 1ML VIAL (J1100) As Ordered ONE ×2 (11:29→11:30)
[2019-01-03] MEDS ORDERED: LIDOCAINE 2% INJ 100 MG/5 ML SDV (FOR ANES.) As Ordered ONE (11:29)
[2019-01-03] MEDS ORDERED: ONDANSETRON 4MG/2ML VIAL (J2405) As Ordered ONE (11:29)
[2019-01-03] MEDS ORDERED: fentaNYL 100 MCG/2 ML INJECTION (J3010) As Ordered ONE (11:31)
[2019-01-03] MEDS ORDERED: MIDAZOLAM INJ 2 MG/2 ML VIAL (J2250) As Ordered ONE (11:31)
[2019-01-03] MEDS ORDERED: CONRAY-60 60% 50ML VIAL (Q9961) As Ordered ONE (12:55)
[2019-01-03] MEDS ORDERED: ACETAMINOPHEN 1000MG 100ML IV BTL (OFIRMEV) (J0131 PER 10MG) As Ordered ONE (13:29)
[2019-01-03] MEDS ORDERED: ONDANSETRON 4MG/2ML VIAL (J2405) IV PRN (14:30)
[2019-01-03] MEDS ORDERED: ACETAMINOPHEN TAB 650MG DOSE (2X325MG) PO PRN (14:30)
[2019-01-03] MEDS ORDERED: oxyCODONE 5MG TAB PO PRN (14:30)
[2019-01-03] MEDS ORDERED: LR 1,000 ML IV SCH (14:30)
[2019-01-03] MEDS ORDERED: fentaNYL 100 MCG/2 ML INJECTION (J3010) IV PRN (14:30)
--- NOTE | 2019-01-03 15:09 | REP ---
C-ARM VIEWS DURING LEFT URETERAL STENT PLACEMENT: Three C-arm views are performed. There is placement of the left ureteral stent. The proximal end is correlated in the left renal pelvis and the distal end is coiled in the urinary bladder. Left pelvicaliceal system appears somewhat dilated and is partially opacified. 18 seconds fluoroscopy time utilized. Electronically Signed by Hans Yi MD 01/04/2019 11:09 A
[2019-01-03 16:25] VITALS: BP 138/81
--- NOTE | 2019-01-04 15:23 | RO ---
DATE OF PROCEDURE: 01/03/2019 PREPROCEDURE DIAGNOSIS: Left ureteral stone. POSTPROCEDURE DIAGNOSIS: Left ureteral stone. PROCEDURE: Cystoscopy, left ureteroscopy with basket extraction of stone, left retrograde pyelogram with intraoperative interpretation of images, left ureteral stent placement. 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 ANESTHESIA: General. OPERATIVE INDICATIONS: This is a 38-year-old male who was found to have an obstructing 4.5 mm mid left ureteral stone. He was brought to the operating room today for treatment. DESCRIPTION OF PROCEDURE: The patient was brought to the operating room and general anesthesia induced. Prophylactic antibiotics were infused. He was then placed in dorsal lithotomy position and prepped and draped in the usual sterile fashion. A rigid cystoscope was inserted into the urethral meatus and advanced to the bladder. Once inside the bladder a guidewire was advanced up the left collecting system. I then advanced the ureteral access sheath up into the left collecting system. I went up the access sheath with the flexible ureteroscope and within the mid ureter there appeared to be a moderate amount of narrowing and a transition point, and beyond that the ureter was severely dilated. The scope was then advanced up past this narrow area and the kidney thoroughly examined but the only abnormality seen was a 4 mm stone inside the kidney indicating that when the wire was put up it popped the stone up into the kidney. The stone was then removed using a basket. I then examined the kidney again and no other stones were seen. A retrograde pyelogram was performed and it was notable for moderate to severe left hydronephrosis, no extravasation. I then withdrew the ureteroscope again, and once again, no stones were inside the ureter. The ureteroscope and access sheath were both removed, and then wire was utilized to advance a 6-Belarusian x 22-32 cm JJ ureteral stent up into the left collecting system. The wire was removed and there were adequate curls of the stent in the left renal pelvis and in the bladder. The bladder was emptied of all fluids. This marked conclusion of the procedure. The patient was taken out of dorsal lithotomy position, awakened from anesthesia and transported to the recovery room in stable condition. ESTIMATED BLOOD LOSS: 5 mL. COMPLICATIONS: None. SPECIMENS: Kidney stone. PLAN: I will keep the patient's stent in for approximately 4 weeks given the narrowing in the ureter. I will then take the stent out in the office and I will get a renal ultrasound 6 weeks after stent removal to confirm his hydronephrosis is gone. MANI
== END 2019-01-03 16:35 | disposition home or self-care (01) ==
LOC: M SDC 10:32
PROVIDERS: ATTEND Urology
DX: N20.0 Calculus of kidney (principal); I10 Essential (primary) hypertension; Z79.899 Other long term (current) drug therapy; Z88.8 Allergy status to other drugs, medicaments and biological substances
CPT/HCPCS: 52332; 52352; 74420; 82360; 88300; C1769; C1894; C2617; J0131; J0690; J1100; J2250; J2405; J3010; Q9961

== ENCOUNTER → 2019-01-11 | Outpatient (REF) | payer SELFPAY ==
[~2019-01-11] MED LIST changes: -LR 1,000 ML IV ONE
[2019-01-11 18:17] LABS: APPEARANCE, URINE CLEAR (CLEAR); BACTERIA, URINE AUTO NEGATIVE (NEGATIVE); BILIRUBIN, URINE AUTO NEGATIVE (NEGATIVE); BLOOD, URINE BLOOD 2+ (NEGATIVE); COLOR, URINE STRAW (YELLOW); GLUCOSE, URINE (UA) AUTO NEGATIVE (NEGATIVE); KETONE, URINE AUTO NEGATIVE (NEGATIVE); LEUKOCYTE ESTERASE, URINE AUTO 3+ (NEGATIVE); MUCUS, URINE SMALL (NEGATIVE); NITRITE, URINE AUTO NEGATIVE (NEGATIVE); PROTEIN, URINE AUTO 2+ mg/dL (NEGATIVE); RBC, URINE AUTO 15 /HPF (0-3); SPECIFIC GRAVITY URINE AUTO 1.006 (1.002-1.035); SQUAMOUS EPITHELIAL CELL UR AU 0 /HPF (0-6); UROBILINOGEN, URINE AUTO 0.2 mg/dL (0.0-2.0); WBC, URINE AUTO 12 /HPF (0-3)
== END ==
LOC: M SMT 17:32
PROVIDERS: ATTEND Nurse Practitioner Family
DX: R39.89 Other symptoms and signs involving the genitourinary system (principal)

== ENCOUNTER 2019-02-07 14:00 | Outpatient (RCR) | payer OTHER | END 2019-02-10 | LOC: M PT 14:00 | PROVIDERS: ATTEND Physician Assistant | DX: M43.02 Spondylolysis, cervical region (principal); M43.06 Spondylolysis, lumbar region ==

== ENCOUNTER → 2019-03-12 | Outpatient (RCR) | payer OTHER | LOC: M PT 02-21 15:13 | PROVIDERS: ATTEND Physician Assistant | DX: M47.892 Other spondylosis, cervical region (principal); M50.322 Other cervical disc degeneration at C5-C6 level; M47.896 Other spondylosis, lumbar region; M51.36 Other intervertebral disc degeneration, lumbar region ==

== ENCOUNTER 2019-04-07 18:49 | Emergency (ER) | payer OTHER, SELFPAY ==
[~2019-04-07] VITALS: Ht 190.5 cm; Wt 115.5 kg
[2019-04-07 19:26] LABS: BASO % 0.6 % (0.0-1.0); EOS # 0.3 10^3/uL (0.0-0.5); EOS % 4.1 % (0.0-3.0); HEMATOCRIT 46.3 % (42.0-52.0); HEMOGLOBIN 16.4 g/dl (13.5-17.5); LYMPH # 2.9 10^3/uL (1.5-5.0); LYMPH % 44.5 % (24.0-44.0); MEAN CORPUSCULAR HEMOGLOBIN 29.7 pg (27.0-33.0); MEAN CORPUSCULAR HGB CONC 35.4 g/dl (32.0-36.5); MEAN CORPUSCULAR VOLUME 83.9 fl (80.0-96.0); MONO # 0.5 10^3/uL (0.0-0.8); MONO % 7.3 % (0.0-5.0); NEUTROPHILS # 2.8 10^3/uL (1.5-8.5); NEUTROPHILS % 43.3 % (36.0-66.0); PLATELET COUNT, AUTOMATED 173 10^3/uL (150-450); RED BLOOD COUNT 5.52 10^6/uL (4.30-6.10); WHITE BLOOD COUNT 6.4 10^3/uL (4.0-10.0)
[2019-04-07] MEDS ORDERED: ASPIRIN 81 MG CHEW TABLET PO ONE (19:30)
[2019-04-07 19:45] LABS: ALBUMIN 3.6 GM/DL (3.2-5.2); ALT/SGPT 37 U/L (12-78); BILIRUBIN,DIRECT < 0.1 MG/DL (0.0-0.2); BILIRUBIN,TOTAL 0.3 MG/DL (0.2-1.0); BLOOD UREA NITROGEN 17 MG/DL (7-18); CALCIUM LEVEL 9.4 MG/DL (8.5-10.1); CARBON DIOXIDE LEVEL 31 MEQ/L (21-32); CHLORIDE LEVEL 105 MEQ/L (98-107); CK-MB VALUE MASS 1.1 NG/ML (<3.6); CPK CREATINE PHOSPHOKINASE 322 U/L (39-308); GLOMERULAR FILTRATION RATE > 60.0 (>60); GLUCOSE, FASTING 99 MG/DL (70-100); LIPASE 172 U/L (73-393); MB/CK RELATIVE INDEX 0.34 (< OR =4); NT-PRO BNP 24 PG/ML (<125); POTASSIUM SERUM 3.6 MEQ/L (3.5-5.1); SODIUM LEVEL 140 MEQ/L (136-145); TOTAL PROTEIN 7.5 GM/DL (6.4-8.2); TROPONIN I < 0.02 NG/ML (< 0.10)
[2019-04-07 19:55] LABS: ERYTHROCYTE SEDIMENTATION RATE 2 mm/hr (0-15)
[2019-04-07] MEDS ORDERED: NS 1,000 ML IV ONE (20:00)
[2019-04-07] MEDS ORDERED: METAL LOCK LOOP XX ONE (21:19)
[2019-04-07] MEDS ORDERED: LISINOPRIL 20 MG TAB PO ONE (22:15)
[2019-04-07 23:50] LABS: CK-MB VALUE MASS 1.3 NG/ML (<3.6); CPK CREATINE PHOSPHOKINASE 289 U/L (39-308); MB/CK RELATIVE INDEX 0.45 (< OR =4); TROPONIN I < 0.02 NG/ML (< 0.10)
[2019-04-08 00:06] VITALS: BP 154/97
--- NOTE | 2019-04-08 11:36 | REP ---
CHEST, SINGLE VIEW: Single view of the chest is performed. Heart appears upper limits of normal in size. There is no acute infiltrate or pulmonary edema. Mediastinal silhouette is unremarkable. IMPRESSION: No acute pulmonary disease. Electronically Signed by Hans Yi MD 04/08/2019 12:36 P
--- NOTE | 2019-04-09 19:41 | ECGEPIP ---
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
--- NOTE | 2019-04-09 19:53 | ECGEPIP ---
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
== END 2019-04-08 00:26 | disposition home or self-care (01) ==
LOC: M ED 18:49
DX: R07.89 Other chest pain (principal); Z73.3 Stress, not elsewhere classified; I44.0 Atrioventricular block, first degree; I10 Essential (primary) hypertension; Z88.8 Allergy status to other drugs, medicaments and biological substances; Z79.899 Other long term (current) drug therapy

== ENCOUNTER → 2019-04-09 | Outpatient (CLI) | payer SELFPAY ==
--- NOTE | 2019-04-09 16:21 | REP ---
Clinical: Ureteral stricture. Technique: Real time saul scale ultrasound examination using curved array transducer. Findings: Kidneys are normal in reniform shape with increased parenchymal echogenicity suggesting medical renal disease. No hydronephrosis, cystic or mass lesion appreciated. The right kidney measures 10.9 x 5.4 x 6.0 cm. Left kidney measures 13.5 x 6.0 x 7.7 cm and includes small nonobstructing lower pole calculi. Bladder is grossly unremarkable. Impression: Findings suggesting chronic medical renal disease without hydronephrosis. Small nonobstructing left renal calculi suspected. Electronically Signed by Aris Strauss MD 04/09/2019 04:13 P
== END ==
LOC: M RAD 15:32
PROVIDERS: ATTEND Urology
DX: N20.0 Calculus of kidney (principal); N13.5 Crossing vessel and stricture of ureter without hydronephrosis

== ENCOUNTER 2019-04-10 08:28 | Outpatient (RCR) | payer OTHER | END 2019-04-12 | LOC: M PT 08:28 | PROVIDERS: ATTEND Physician Assistant | DX: M54.2 Cervicalgia (principal); M54.5 Low back pain ==

== ENCOUNTER 2019-04-24 13:01 | Outpatient (RCR) | payer OTHER, SELFPAY | END 2019-05-12 | LOC: M PT 13:01 | PROVIDERS: ATTEND Physician Assistant | DX: M54.2 Cervicalgia (principal); M54.5 Low back pain ==

== ENCOUNTER → 2019-05-31 | Outpatient (CLI) | payer OTHER ==
--- NOTE | 2019-06-01 09:01 | REP ---
MRI thoracic spine: 05/31/2019. Indication: Thoracic pain. Comparison: None. Technique: Multiplanar short and long TR sequences of the thoracic spine were performed without IV Gadolinium. Findings: Vertebral body alignment is anatomic. No worrisome marrow or cord signal is present. Disc desiccation and minor disc space loss is present at T12/L1. There is a small right paracentral T12/L1 disc protrusion superimposed on a diffuse disc bulge. There is mild flattening of the right ventral lateral cord. No significant additional areas of spinal canal narrowing are present. The neural foramen are patent throughout. Impression: T12/L1 degenerative sequelae as described. No severe spinal canal narrowing. Electronically Signed by Blaine Zhou DO 06/01/2019 08:52 A
== END ==
LOC: M RAD 17:24
PROVIDERS: ATTEND Physician Assistant
DX: M51.35 Other intervertebral disc degeneration, thoracolumbar region (principal)

== ENCOUNTER → 2019-06-12 | Outpatient (RCR) | payer OTHER | LOC: M PT 06-05 07:54 | PROVIDERS: ATTEND Physician Assistant | DX: M54.6 Pain in thoracic spine (principal) ==

== ENCOUNTER 2019-06-27 09:54 | Emergency (ER) | payer OTHER, SELFPAY ==
[~2019-06-27] VITALS: Ht 190.5 cm; Wt 118.2 kg
[~2019-06-27 09:54] MED LIST changes: -Holter Monitor; -METO1TAB87; -METO1TAB87 PO
[2019-06-27] MEDS ORDERED: METO1TAB87 (09:58)
--- NOTE | 2019-06-27 10:21 | ECGEPIP ---
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
[2019-06-27 10:40] LABS: BASO % 0.7 % (0.0-1.0); EOS # 0.3 10^3/uL (0.0-0.5); EOS % 5.7 % (0.0-3.0); HEMATOCRIT 45.1 % (42.0-52.0); HEMOGLOBIN 15.8 g/dl (13.5-17.5); LYMPH # 1.8 10^3/uL (1.5-5.0); LYMPH % 39.7 % (24.0-44.0); MEAN CORPUSCULAR HEMOGLOBIN 29.1 pg (27.0-33.0); MEAN CORPUSCULAR VOLUME 83.1 fl (80.0-96.0); MONO # 0.4 10^3/uL (0.0-0.8); MONO % 9.1 % (0.0-5.0); NEUTROPHILS % 44.6 % (36.0-66.0); PLATELET COUNT, AUTOMATED 154 10^3/uL (150-450); RED BLOOD COUNT 5.43 10^6/uL (4.30-6.10); WHITE BLOOD COUNT 4.4 10^3/uL (4.0-10.0)
--- NOTE | 2019-06-27 10:56 | REP ---
Portable chest x-ray: Single view. History: Chest pain. Comparison study: April 07, 2019. Findings: Monitoring electrodes are seen. Lungs are exposed at a relatively low level of inspiration. This magnifies the heart. Pulmonary vasculature is not increased. No infiltrate is seen. Pleural angles are sharp. Impression: Low level of inspiration. Otherwise no acute disease. Electronically Signed by Connor Marshall MD 06/27/2019 10:47 A
[2019-06-27 11:11] LABS: BLOOD UREA NITROGEN 13 MG/DL (7-18); CALCIUM LEVEL 8.8 MG/DL (8.5-10.1); CARBON DIOXIDE LEVEL 29 MEQ/L (21-32); CHLORIDE LEVEL 106 MEQ/L (98-107); CK-MB VALUE MASS 1.9 NG/ML (<3.6); CPK CREATINE PHOSPHOKINASE 243 U/L (39-308); CREATININE FOR GFR 1.32 MG/DL (0.70-1.30); GLOMERULAR FILTRATION RATE > 60.0 (>60); GLUCOSE, FASTING 116 MG/DL (70-100); MB/CK RELATIVE INDEX 0.78 (< OR =4); POTASSIUM SERUM 3.5 MEQ/L (3.5-5.1); SODIUM LEVEL 141 MEQ/L (136-145); TROPONIN I < 0.02 NG/ML (< 0.10)
[2019-06-27] MEDS ORDERED: Holter Monitor (12:39)
[2019-06-27 12:47] VITALS: BP 146/79
== END 2019-06-27 12:52 | disposition home or self-care (01) ==
LOC: M ED 09:54
DX: R00.2 Palpitations (principal); I44.0 Atrioventricular block, first degree; G89.29 Other chronic pain; Z79.899 Other long term (current) drug therapy; Z88.8 Allergy status to other drugs, medicaments and biological substances

== ENCOUNTER → 2019-06-27 | Outpatient (CLI) | payer OTHER, SELFPAY ==
[~2019-06-27] MED LIST changes: +Holter Monitor; +METO1TAB87; +METO1TAB87 PO
--- NOTE | 2019-06-30 10:43 | HOLTMON ---
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 There was significant artifact. Underlying rhytm was sinus. Rate varied from 52-106 beats per minute, with an average of 70 beats per minute. There were no significant pauses. Patient experienced 349 ventricular singlet beats and 134 supraventricular beats. Patient's diary suggests that for 4 of 6 of his recorded events he is experiencing ventricular singlet ectopy during an underlying sinus rhythm at normal rate. Electronically Signed on 06-30-2019 10:42:48 EST by Wai Sawant
== END ==
LOC: M EKG 13:04
PROVIDERS: ATTEND Internal Medicine
DX: R00.0 Tachycardia, unspecified (principal)

== ENCOUNTER 2019-07-06 21:15 | Emergency (ER) | payer OTHER, SELFPAY ==
[~2019-07-06] VITALS: Ht 188 cm; Wt 116.3 kg
[~2019-07-06 21:15] MED LIST changes: +Holter Monitor; +METO1TAB87
[2019-07-06] MEDS ORDERED: METO1TAB87 PO (21:27)
[2019-07-06 21:32] LABS: BASO % 0.5 % (0.0-1.0); EOS # 0.3 10^3/uL (0.0-0.5); EOS % 4.7 % (0.0-3.0); HEMATOCRIT 48.6 % (42.0-52.0); HEMOGLOBIN 16.6 g/dl (13.5-17.5); LYMPH # 2.7 10^3/uL (1.5-5.0); LYMPH % 46.3 % (24.0-44.0); MEAN CORPUSCULAR HEMOGLOBIN 28.9 pg (27.0-33.0); MEAN CORPUSCULAR HGB CONC 34.2 g/dl (32.0-36.5); MEAN CORPUSCULAR VOLUME 84.5 fl (80.0-96.0); MONO # 0.5 10^3/uL (0.0-0.8); MONO % 8.6 % (0.0-5.0); NEUTROPHILS # 2.3 10^3/uL (1.5-8.5); NEUTROPHILS % 39.7 % (36.0-66.0); PLATELET COUNT, AUTOMATED 168 10^3/uL (150-450); RED BLOOD COUNT 5.75 10^6/uL (4.30-6.10); WHITE BLOOD COUNT 5.8 10^3/uL (4.0-10.0)
[2019-07-06 21:43] LABS: INR 1.1; PROTHROMBIN TIME 13.9 SECONDS (11.8-14.0)
[2019-07-06 22:06] LABS: ALBUMIN 3.7 GM/DL (3.2-5.2); ALT/SGPT 51 U/L (12-78); BILIRUBIN,DIRECT < 0.1 MG/DL (0.0-0.2); BILIRUBIN,TOTAL 0.3 MG/DL (0.2-1.0); BLOOD UREA NITROGEN 15 MG/DL (7-18); CARBON DIOXIDE LEVEL 30 MEQ/L (21-32); CHLORIDE LEVEL 105 MEQ/L (98-107); CK-MB VALUE MASS 1.7 NG/ML (<3.6); CPK CREATINE PHOSPHOKINASE 437 U/L (39-308); CREATININE FOR GFR 1.53 MG/DL (0.70-1.30); GLOMERULAR FILTRATION RATE > 60.0 (>60); GLUCOSE, FASTING 88 MG/DL (70-100); LIPASE 199 U/L (73-393); MAGNESIUM LEVEL 2.3 MG/DL (1.8-2.4); MB/CK RELATIVE INDEX 0.39 (< OR =4); POTASSIUM SERUM 3.7 MEQ/L (3.5-5.1); SODIUM LEVEL 140 MEQ/L (136-145); TOTAL PROTEIN 7.6 GM/DL (6.4-8.2); TROPONIN I < 0.02 NG/ML (< 0.10)
[2019-07-06] MEDS ORDERED: SUCRALFATE SUSP 1GM/10ML UD PO ONE (23:15)
[2019-07-06] MEDS ORDERED: GI COCKTAIL 50ML BTL(HYOSCYAMINE/MAALOX/LIDOCAINE VISCOUS)(1:3:1) PO ONE (23:15)
[2019-07-07 03:00] VITALS: BP 153/83
[2019-07-07 03:03] LABS: CK-MB VALUE MASS 1.3 NG/ML (<3.6); CPK CREATINE PHOSPHOKINASE 377 U/L (39-308); MB/CK RELATIVE INDEX 0.34 (< OR =4); TROPONIN I < 0.02 NG/ML (< 0.10)
--- NOTE | 2019-07-07 06:29 | ECGEPIP ---
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
--- NOTE | 2019-07-07 09:24 | REP ---
AP PORTABLE CHEST: 07/06/2019. Comparison: AP chest 06/27/2019, PA and lateral 11/16/2018. Clinical history: Chest pain. Findings: Slight lordotic projection exaggerates heart size along with the portable technique. No gross cardiomegaly, vascular redistribution, pulmonary edema, pleural effusion or acute infiltrate. No widening of the mediastinum. No acute bony finding or free air under the diaphragm. Impression: 1. No acute cardiopulmonary change. Electronically Signed by Luke Langston MD 07/07/2019 07:52 P
--- NOTE | 2019-07-12 00:39 | ECGEPIP ---
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
== END 2019-07-07 03:12 | disposition home or self-care (01) ==
LOC: M ED 21:15
DX: R07.89 Other chest pain (principal); R00.2 Palpitations; I10 Essential (primary) hypertension; Z79.899 Other long term (current) drug therapy; Z88.8 Allergy status to other drugs, medicaments and biological substances

== ENCOUNTER 2019-07-11 14:17 | Outpatient (RCR) | payer OTHER ==
[~2019-07-11 14:17] MED LIST changes: +METO1TAB87 PO
== END 2019-07-13 ==
LOC: M PT 14:17
PROVIDERS: ATTEND Physician Assistant
DX: M54.6 Pain in thoracic spine (principal)

== ENCOUNTER 2019-07-18 15:13 | Outpatient (RCR) | payer OTHER | END 2019-08-11 | LOC: M PT 15:13 | PROVIDERS: ATTEND Physician Assistant | DX: Z47.89 Encounter for other orthopedic aftercare (principal); M47.892 Other spondylosis, cervical region; M50.31 Other cervical disc degeneration, high cervical region; M47.817 Spondylosis without myelopathy or radiculopathy, lumbosacral region; M51.27 Other intervertebral disc displacement, lumbosacral region; M50.320 Other cervical disc degeneration, mid-cervical region, unspecified level ==

== ENCOUNTER 2019-08-08 13:00 | Outpatient (RCR) | payer OTHER | END 2019-08-11 | LOC: M PT 13:00 | PROVIDERS: ATTEND Physician Assistant | DX: Z47.89 Encounter for other orthopedic aftercare (principal); M51.35 Other intervertebral disc degeneration, thoracolumbar region ==

== ENCOUNTER 2019-08-16 14:06 | Outpatient (RCR) | payer OTHER | END 2019-09-11 | LOC: M PT 14:06 | PROVIDERS: ATTEND Physician Assistant | DX: Z51.89 Encounter for other specified aftercare (principal); M47.812 Spondylosis without myelopathy or radiculopathy, cervical region; M47.816 Spondylosis without myelopathy or radiculopathy, lumbar region ==

== ENCOUNTER → 2019-09-11 | Outpatient (RCR) | payer OTHER | LOC: M PT 08-13 14:30 | PROVIDERS: ATTEND Physician Assistant | DX: Z51.89 Encounter for other specified aftercare (principal); M54.6 Pain in thoracic spine ==

== ENCOUNTER 2019-10-09 12:59 | Outpatient (RCR) | payer OTHER ==
[~2019-10-09 12:59] MED LIST changes: +CYCL-707 PO; -CYCL10TA PO
== END 2019-10-11 ==
LOC: M PT 12:59
PROVIDERS: ATTEND Physician Assistant
DX: M54.6 Pain in thoracic spine (principal)

== ENCOUNTER → 2019-10-26 | Outpatient (CLI) | payer OTHER ==
[~2019-10-26] MED LIST changes: -MAPA325T2 PO; +MAPA325T8 PO
--- NOTE | 2019-10-26 17:14 | REP ---
Clinical: Nephrolithiasis. Technique: Two supine views of the abdomen and pelvis. Findings: Evaluation of the urinary tract system is significantly limited due to overlying bowel gas. No obvious urinary tract calcifications are identified. No bowel obstruction or perforation. No organomegaly. No abnormal calcifications. Skeletal structures are intact. Impression: Limited examination. No obvious urinary tract calcifications noted. Electronically Signed by Aris Strauss MD 10/26/2019 05:06 P
== END ==
LOC: M RAD 15:59
PROVIDERS: ATTEND Urology
DX: N20.0 Calculus of kidney (principal)

== ENCOUNTER 2019-11-08 13:45 | Outpatient (RCR) | payer OTHER | END 2019-11-11 | LOC: M PT 13:45 | PROVIDERS: ATTEND Physician Assistant | DX: Z47.89 Encounter for other orthopedic aftercare (principal); M50.31 Other cervical disc degeneration, high cervical region; M51.37 Other intervertebral disc degeneration, lumbosacral region; M54.6 Pain in thoracic spine ==

== ENCOUNTER → 2019-12-11 | Outpatient (RCR) | payer OTHER | LOC: M PT 11-13 13:46 | PROVIDERS: ATTEND Physician Assistant | DX: Z51.89 Encounter for other specified aftercare (principal); M54.6 Pain in thoracic spine ==

== ENCOUNTER 2020-02-05 15:15 | Outpatient (RCR) | payer OTHER | END 2020-02-11 | LOC: M PT 15:15 | PROVIDERS: ATTEND Physician Assistant | DX: M51.35 Other intervertebral disc degeneration, thoracolumbar region (principal); M79.18 Myalgia, other site ==

== ENCOUNTER 2020-03-04 15:15 | Outpatient (RCR) | payer OTHER | END 2020-03-12 | LOC: M PT 15:15 | PROVIDERS: ATTEND Physician Assistant | DX: M54.6 Pain in thoracic spine (principal) ==

== ENCOUNTER → 2020-04-03 | Outpatient (REF) | payer OTHER ==
[2020-04-03 18:41] LABS: BLOOD UREA NITROGEN 11 MG/DL (7-18); CALCIUM LEVEL 9.5 MG/DL (8.5-10.1); CARBON DIOXIDE LEVEL 33 MEQ/L (21-32); CHLORIDE LEVEL 103 MEQ/L (98-107); CREATININE FOR GFR 1.41 MG/DL (0.70-1.30); GLOMERULAR FILTRATION RATE > 60.0 (>60); GLUCOSE, FASTING 99 MG/DL (70-100); POTASSIUM SERUM 3.9 MEQ/L (3.5-5.1); SODIUM LEVEL 139 MEQ/L (136-145)
== END ==
LOC: M SFHCPLAZ 15:09
DX: I15.9 Secondary hypertension, unspecified (principal)

== ENCOUNTER 2020-04-09 15:12 | Outpatient (RCR) | payer OTHER | END 2020-04-12 | LOC: M PT 15:12 | PROVIDERS: ATTEND Family Medicine | DX: Z47.89 Encounter for other orthopedic aftercare (principal); M51.35 Other intervertebral disc degeneration, thoracolumbar region; M79.18 Myalgia, other site ==

== ENCOUNTER → 2020-04-09 | Outpatient (CLI) | payer OTHER ==
[2020-04-09 16:25] LABS: APPEARANCE, URINE CLEAR (CLEAR); BACTERIA, URINE AUTO NEGATIVE (NEGATIVE); BILIRUBIN, URINE AUTO NEGATIVE (NEGATIVE); BLOOD, URINE BLOOD 2+ (NEGATIVE); COLOR, URINE YELLOW (YELLOW); GLUCOSE, URINE (UA) AUTO NEGATIVE (NEGATIVE); KETONE, URINE AUTO NEGATIVE (NEGATIVE); LEUKOCYTE ESTERASE, URINE AUTO NEGATIVE (NEGATIVE); NITRITE, URINE AUTO NEGATIVE (NEGATIVE); PROTEIN, URINE AUTO 2+ mg/dL (NEGATIVE); RBC, URINE AUTO 4 /HPF (0-3); SQUAMOUS EPITHELIAL CELL UR AU 0 /HPF (0-6); UROBILINOGEN, URINE AUTO 0.2 mg/dL (0.0-2.0); WBC, URINE AUTO 1 /HPF (0-3)
== END ==
LOC: M LAB 15:57
DX: I15.9 Secondary hypertension, unspecified (principal)

== ENCOUNTER → 2020-04-10 | Outpatient (REF) | payer OTHER | LOC: M SFHCPLAZ 15:22 | DX: I10 Essential (primary) hypertension (principal) ==

== ENCOUNTER → 2020-04-14 | Outpatient (CLI) | payer OTHER ==
[2020-04-14 18:10] LABS: CREATININE, URINE 44.2 MG/DL; CREATININE,RANDOM URINE 44.2 MG/DL; MAU/CREAT RATIO 1056.5 MCG/MG (0.0-30.0)
== END ==
LOC: M LAB 16:16
DX: I10 Essential (primary) hypertension (principal)

== ENCOUNTER 2020-04-23 01:29 | Emergency (ER) | payer OTHER ==
[~2020-04-23] VITALS: Ht 190.5 cm; Wt 117.8 kg
[2020-04-23] MEDS ORDERED: LYRI75CA PO (01:36)
[2020-04-23] MEDS ORDERED: DULO1CAP4 PO (01:36)
[2020-04-23] MEDS ORDERED: HYDR25TAB PO (01:36)
[2020-04-23] MEDS ORDERED: DILT30TA PO (01:36)
[2020-04-23] MEDS ORDERED: LISI10TA4 PO (01:37)
[2020-04-23 02:57] LABS: BASO % 0.6 % (0.0-1.0); EOS # 0.3 10^3/uL (0.0-0.5); EOS % 4.7 % (0.0-3.0); HEMATOCRIT 48.8 % (42.0-52.0); LYMPH # 2.8 10^3/uL (1.5-5.0); MEAN CORPUSCULAR HGB CONC 34.8 g/dl (32.0-36.5); MEAN CORPUSCULAR VOLUME 83.3 fl (80.0-96.0); MONO # 0.5 10^3/uL (0.0-0.8); MONO % 8.4 % (0.0-5.0); NEUTROPHILS # 2.6 10^3/uL (1.5-8.5); NEUTROPHILS % 41.1 % (36.0-66.0); PLATELET COUNT, AUTOMATED 182 10^3/uL (150-450); RED BLOOD COUNT 5.86 10^6/uL (4.30-6.10); WHITE BLOOD COUNT 6.2 10^3/uL (4.0-10.0)
[2020-04-23 03:45] LABS: ALBUMIN 3.7 GM/DL (3.2-5.2); ALT/SGPT 50 U/L (12-78); BILIRUBIN,DIRECT < 0.1 MG/DL (0.0-0.2); BILIRUBIN,TOTAL 0.4 MG/DL (0.2-1.0); LIPASE 165 U/L (73-393); TOTAL PROTEIN 7.6 GM/DL (6.4-8.2)
[2020-04-23] MEDS ORDERED: METHOCARBAMOL 1,000 MG/10 ML VIAL (J2800) IV ONE (06:15)
[2020-04-23] MEDS ORDERED: methylPREDNISolone 125MG 2ML VIAL IV ONE (06:15)
--- NOTE | 2020-04-23 07:33 | REPVR ---
PROCEDURE INFORMATION: Exam: CT Abdomen And Pelvis Without Contrast Exam date and time: 04/23/2020 6:01 AM Age: 39 years old Clinical indication: Abdominal pain; Flank; Left; Additional info: Left flank pain TECHNIQUE: Imaging protocol: Computed tomography of the abdomen and pelvis without contrast. Radiation optimization: All CT scans at this facility use at least one of these dose optimization techniques: automated exposure control; mA and/or kV adjustment per patient size (includes targeted exams where dose is matched to clinical indication); or iterative reconstruction. COMPARISON: CT ABD PELVIS W/O CONTRAST 12/29/2018 2:11 PM FINDINGS: Liver: Normal. No mass. Gallbladder and bile ducts: Normal. No calcified stones. No ductal dilation. Pancreas: Normal. No ductal dilation. Spleen: Normal. No splenomegaly. Adrenal glands: Normal. No mass. Kidneys and ureters: Punctate nonobstructing left renal calculi. Mild prominence of the left renal collecting system without obstructing calculus. A recently passed stone is considered.. Stomach and bowel: Unremarkable. No obstruction. No mucosal thickening. Appendix: No evidence of appendicitis. Intraperitoneal space: Unremarkable. No free air. No significant fluid collection. Vasculature: Unremarkable. No abdominal aortic aneurysm. Lymph nodes: Unremarkable. No enlarged lymph nodes. Urinary bladder: Distended urinary bladder. Reproductive: Unremarkable as visualized. Bones/joints: Mild multilevel degenerative disease and facet arthropathy of the lower lumbar spine. Soft tissues: Mild diastasis periumbilical abdominal wall. IMPRESSION: Punctate nonobstructing left renal calculi. Mild prominence of the left renal collecting system without obstructing calculus. A recently passed stone is considered. Electronically signed by: Erick Rueda On 04/23/2020 07:32:28 AM
--- NOTE | 2020-04-23 07:34 | REPVR ---
PROCEDURE INFORMATION: Exam: US Retroperitoneal Limited, Kidneys Exam date and time: 04/23/2020 6:33 AM Age: 39 years old Clinical indication: Abdominal pain; Flank; Left; Additional info: Left flank pain, HTN, lynette TECHNIQUE: Imaging protocol: Real-time ultrasound of the retroperitoneum with image documentation. Examination was focused on the kidneys. COMPARISON: RENAL US 04/09/2019 3:48 PM FINDINGS: Right kidney: No stones. No hydronephrosis. Left kidney: Nonobstructive left nephrolithiasis. No hydronephrosis. IMPRESSION: Nonobstructive left nephrolithiasis. No hydronephrosis. Electronically signed by: Erick Rueda On 04/23/2020 07:33:28 AM
[2020-04-23] MEDS ORDERED: METH1TAB40 PO (08:10)
[2020-04-23] MEDS ORDERED: PRED20TA PO (08:10)
[2020-04-23 08:23] VITALS: BP 155/76
== END 2020-04-23 08:24 | disposition home or self-care (01) ==
LOC: M ED 01:29
DX: M54.9 Dorsalgia, unspecified (principal); N20.0 Calculus of kidney; I11.9 Hypertensive heart disease without heart failure; Z87.442 Personal history of urinary calculi; Z88.8 Allergy status to other drugs, medicaments and biological substances; Z79.899 Other long term (current) drug therapy
CPT/HCPCS: 74176; 76775; 80047; 80076; 81001; 83690; 85025; 96374; 96375; 99284; J2800; J2930

== ENCOUNTER → 2020-05-01 | Outpatient (CLI) | payer OTHER ==
[~2020-05-01] MED LIST changes: +DILT30TA PO; +DULO1CAP4 PO; +LYRI75CA PO; +METH1TAB40 PO; +PRED20TA PO
[2020-05-01 17:41] LABS: APPEARANCE, URINE HAZY (CLEAR); BACTERIA, URINE AUTO NEGATIVE (NEGATIVE); BILIRUBIN, URINE AUTO NEGATIVE (NEGATIVE); BLOOD, URINE BLOOD NEGATIVE (NEGATIVE); COLOR, URINE YELLOW (YELLOW); GLUCOSE, URINE (UA) AUTO 1+ mg/dL (NEGATIVE); KETONE, URINE AUTO NEGATIVE (NEGATIVE); LEUKOCYTE ESTERASE, URINE AUTO NEGATIVE (NEGATIVE); NITRITE, URINE AUTO NEGATIVE (NEGATIVE); PROTEIN, URINE AUTO 3+ mg/dL (NEGATIVE); RBC, URINE AUTO 8 /HPF (0-3); SPECIFIC GRAVITY URINE AUTO 1.016 (1.002-1.035); SQUAMOUS EPITHELIAL CELL UR AU 0 /HPF (0-6); UROBILINOGEN, URINE AUTO 0.2 mg/dL (0.0-2.0); WBC, URINE AUTO 1 /HPF (0-3)
[2020-05-01 18:02] LABS: TOTAL PROTEIN,RANDOM URINE 210.9 MG/DL (0.0-12.0)
[2020-05-01 18:06] LABS: ALBUMIN 3.5 GM/DL (3.2-5.2); ALT/SGPT 61 U/L (12-78); BILIRUBIN,TOTAL 0.3 MG/DL (0.2-1.0); BLOOD UREA NITROGEN 15 MG/DL (7-18); CALCIUM LEVEL 9.3 MG/DL (8.5-10.1); CARBON DIOXIDE LEVEL 34 MEQ/L (21-32); CHLORIDE LEVEL 99 MEQ/L (98-107); CHOLESTEROL LEVEL 251 MG/DL (<200); CHOLESTEROL RISK RATIO 6.972 (<5); CREATININE FOR GFR 1.43 MG/DL (0.70-1.30); GLOMERULAR FILTRATION RATE > 60.0 (>60); GLUCOSE, FASTING 115 MG/DL (70-100); HDL CHOLESTEROL 36 MG/DL (>40); NON-HDL-C 215 MG/DL; POTASSIUM SERUM 3.2 MEQ/L (3.5-5.1); SODIUM LEVEL 138 MEQ/L (136-145); TOTAL PROTEIN 7.4 GM/DL (6.4-8.2); TRIGLYCERIDES LEVEL 493 MG/DL (<150)
== END ==
LOC: M LAB 17:13
PROVIDERS: ATTEND Hospitalist
DX: I20.8 Other forms of angina pectoris (principal); R80.9 Proteinuria, unspecified

== ENCOUNTER → 2020-05-12 | Outpatient (RCR) | payer OTHER | LOC: M PT 04-14 15:17 | PROVIDERS: ATTEND Family Medicine | DX: M54.6 Pain in thoracic spine (principal) ==

== ENCOUNTER → 2020-06-02 | Outpatient (CLI) | payer OTHER ==
[~2020-06-02] MED LIST changes: +ASPE4PAD TOP; +ATOR40TA75; +DILT180C70; +LISI-538; +LISI40TA; +ROSU10TA6
--- NOTE | 2020-06-02 15:31 | REP ---
INDICATION: CALCULUS OF KIDNEY COMPARISON: CT dated 04/23/2020 TECHNIQUE: Two supine views of the abdomen and pelvis. FINDINGS: No obvious urinary tract calcifications are identified although evaluation is limited due to overlying bowel gas pattern. Bowel gas pattern is nonspecific and without obstruction or perforation. No organomegaly. Skeletal structures intact. IMPRESSION: No obvious urinary tract calcifications. Nonspecific bowel gas pattern. <Electronically signed by Aris Strauss > 06/02/20 [id number]
== END ==
LOC: M RAD 14:58
PROVIDERS: ATTEND Urology
DX: N20.0 Calculus of kidney (principal)

== ENCOUNTER 2020-06-09 22:15 | Emergency (ER) | payer OTHER ==
[~2020-06-09] VITALS: Ht 190.5 cm; Wt 115.8 kg
[~2020-06-09 22:15] MED LIST changes: -ASPE4PAD TOP; -ATOR40TA75; -DILT180C70; -LISI-538; -LISI40TA; -ROSU10TA6
[2020-06-09] MEDS ORDERED: ATOR40TA75 (22:23)
[2020-06-09] MEDS ORDERED: LISI-538 (22:23)
[2020-06-09] MEDS ORDERED: LISI40TA (22:23)
[2020-06-09] MEDS ORDERED: ROSU10TA6 (22:23)
[2020-06-09] MEDS ORDERED: DILT180C70 (22:23)
[2020-06-09] MEDS ORDERED: NS 1,000 ML IV ONE (23:30)
[2020-06-09] MEDS ORDERED: KETOROLAC 30 MG/ML 1ML VIAL IV ONE (23:30)
[2020-06-10 00:16] LABS: BASO % 0.7 % (0.0-1.0); EOS # 0.3 10^3/uL (0.0-0.5); EOS % 5.3 % (0.0-3.0); HEMATOCRIT 46.1 % (42.0-52.0); HEMOGLOBIN 15.6 g/dl (13.5-17.5); LYMPH # 2.5 10^3/uL (1.5-5.0); LYMPH % 42.4 % (24.0-44.0); MEAN CORPUSCULAR HEMOGLOBIN 28.6 pg (27.0-33.0); MEAN CORPUSCULAR HGB CONC 33.8 g/dl (32.0-36.5); MEAN CORPUSCULAR VOLUME 84.4 fl (80.0-96.0); MONO # 0.5 10^3/uL (0.0-0.8); MONO % 8.2 % (0.0-5.0); NEUTROPHILS # 2.5 10^3/uL (1.5-8.5); NEUTROPHILS % 43.1 % (36.0-66.0); PLATELET COUNT, AUTOMATED 162 10^3/uL (150-450); RED BLOOD COUNT 5.46 10^6/uL (4.30-6.10); WHITE BLOOD COUNT 5.8 10^3/uL (4.0-10.0)
[2020-06-10 00:22] LABS: ALBUMIN 3.4 GM/DL (3.2-5.2); ALT/SGPT 64 U/L (12-78); BILIRUBIN,DIRECT < 0.1 MG/DL (0.0-0.2); BILIRUBIN,TOTAL 0.3 MG/DL (0.2-1.0); BLOOD UREA NITROGEN 21 MG/DL (7-18); CALCIUM LEVEL 8.8 MG/DL (8.5-10.1); CARBON DIOXIDE LEVEL 30 MEQ/L (21-32); CHLORIDE LEVEL 106 MEQ/L (98-107); GLOMERULAR FILTRATION RATE > 60.0 (>60); GLUCOSE, FASTING 100 MG/DL (70-100); LIPASE 191 U/L (73-393); POTASSIUM SERUM 3.7 MEQ/L (3.5-5.1); SODIUM LEVEL 140 MEQ/L (136-145); TOTAL PROTEIN 7.1 GM/DL (6.4-8.2)
[2020-06-10] MEDS ORDERED: ISOVUE-370 76% 100ML VIAL As Ordered ONE (00:26)
[2020-06-10] MEDS ORDERED: ONDANSETRON 4MG/2ML VIAL IV ONE ×2 (00:45)
--- NOTE | 2020-06-10 01:03 | REPVR ---
PROCEDURE INFORMATION: Exam: CT Abdomen And Pelvis With Contrast Exam date and time: 06/09/2020 11:27 PM Age: 39 years old Clinical indication: Abdominal pain; Flank; Left; Additional info: L flank and lower abd pain x 3 days TECHNIQUE: Imaging protocol: Computed tomography of the abdomen and pelvis with intravenous contrast. Radiation optimization: All CT scans at this facility use at least one of these dose optimization techniques: automated exposure control; mA and/or kV adjustment per patient size (includes targeted exams where dose is matched to clinical indication); or iterative reconstruction. Contrast material: ISO; Contrast volume: 100 ml; Contrast route: INTRAVENOUS (IV); COMPARISON: CT ABD PELVIS W/O CONTRAST 04/23/2020 6:09 AM FINDINGS: Lungs: No suspicious mass or airspace process in the visualized lung bases. Liver: Liver appears normal with no focal abnormality. Gallbladder and bile ducts: Gallbladder is present and shows no evidence of gallstone. Pancreas: Pancreas appears normal. No focal mass or peripancreatic inflammation. Spleen: Spleen appears homogeneous without focal mass. Adrenal glands: Adrenal glands are normal in appearance. Kidneys and ureters: Kidneys appear normal, aside from a nonobstructive lower pole left renal stone. Stomach and bowel: No evidence of small bowel obstruction. Terminal ileum has normal appearance. No evidence of acute diverticulitis. Appendix: Normal caliber appendix is identified, with no adjacent inflammation. Intraperitoneal space: No pneumoperitoneum. Vasculature: No aortic aneurysm. Main portal and splenic veins enhance normally. Lymph nodes: No enlarged lymph nodes. Urinary bladder: Urinary bladder appears normal. Reproductive: Unremarkable as visualized. Bones/joints: Bony structures show no acute fracture or destructive process. Soft tissues: No concerning focal abnormality of the extra-abdominal and pelvic soft tissues. IMPRESSION: Nonobstructive punctate left renal lower pole calculus. No hydronephrosis or ureter stone. Electronically signed by: Oj Mendoza On 06/10/2020 01:03:26 AM
[2020-06-10] MEDS ORDERED: ASPE4PAD TOP (01:40)
[2020-06-10] MEDS ORDERED: LIDOCAINE 5% (LIDODERM) PATCH TD ONE (01:45)
[2020-06-10] MEDS ORDERED: NS 1,000 ML IV ONE (01:45)
[2020-06-10 01:47] LABS: MAGNESIUM LEVEL 2.2 MG/DL (1.8-2.4)
[2020-06-10 01:59] VITALS: BP 150/96
[2020-06-10] MEDS ORDERED: **NOTE PATIENT COMMENT** MISC XX ONE (13:45)
== END 2020-06-10 02:25 | disposition home or self-care (01) ==
LOC: M ED 22:15
DX: R79.89 Other specified abnormal findings of blood chemistry (principal); R31.21 Asymptomatic microscopic hematuria; I10 Essential (primary) hypertension; E78.5 Hyperlipidemia, unspecified; R51.9 Headache, unspecified; Z87.442 Personal history of urinary calculi; Z88.8 Allergy status to other drugs, medicaments and biological substances; Z79.899 Other long term (current) drug therapy
CPT/HCPCS: 74177; 80048; 80076; 81001; 83690; 83735; 85025; 96361; 96374; 96375; 96376; 99284; J1885; J2405; Q9967

== ENCOUNTER 2020-06-11 15:15 | Outpatient (RCR) | payer OTHER ==
[~2020-06-11 15:15] MED LIST changes: +ASPE4PAD TOP; +ATOR40TA75; +DILT180C70; +LISI-538; +LISI40TA; +ROSU10TA6
== END 2020-06-12 ==
LOC: M PT 15:15
PROVIDERS: ATTEND Family Medicine
DX: Z51.89 Encounter for other specified aftercare (principal); M54.6 Pain in thoracic spine

== ENCOUNTER → 2020-06-23 | Outpatient (CLI) | payer OTHER ==
--- NOTE | 2020-06-23 10:12 | REP ---
INDICATION: HTN COMPARISON: 04/23/2020 TECHNIQUE: Real time saul scale ultrasound examination using curved array transducer followed by color Doppler evaluation of the renal vasculature. FINDINGS: Right kidney is normal in appearance and measures 9.6 x 6.2 x 5.0 cm suggesting asymmetric atrophy without hydronephrosis, nephrolithiasis, cystic or renal mass lesion. Left kidney measures 13.4 x 7.4 x 7.1 cm with 2 echogenic foci in the lower pole suggesting small stones versus renovascular calcifications. Bladder is normal. Prostate measures 3.7 x 3.5 x 3.4 cm (23 cc). Color Doppler evaluation of the right kidney is incomplete due to overlying bowel gas obscuring the main renal artery. However intrarenal resistive indices and acceleration times appears to be normal for the right kidney.. Peak aortic velocity: 62 centimeters/second RIGHT KIDNEY Renal arterial velocity: -- centimeters/second Renal-aortic ratio: -- Intrarenal resistive indices: 0.48-0.54 Intrarenal acceleration times: 0.046-0.058 LEFT KIDNEY Renal arterial velocity: 77 centimeters/second Renal-aortic ratio: 1.2 Intrarenal resistive indices: 0.50-0.59 Intrarenal acceleration times: 0.038-0.058 IMPRESSION: 1. Incomplete evaluation of the right renal vasculature. However, asymmetric atrophy to the right kidney raising the possibility of chronic vascular insufficiency. Consider further evaluation with CTA or MRA 2. Left renal vasculature appears relatively normal. Possible small nonobstructing left renal calculi versus renal vascular calcifications cannot be distinguished. No hydronephrosis. <Electronically signed by Aris Strauss > 06/23/20 [id number]
== END ==
LOC: M RAD 07:47
PROVIDERS: ATTEND Physician Assistant
DX: I10 Essential (primary) hypertension (principal)

== ENCOUNTER 2020-07-10 15:15 | Outpatient (RCR) | payer OTHER | END 2020-07-13 | LOC: M PT 15:15 | PROVIDERS: ATTEND Family Medicine | DX: M51.37 Other intervertebral disc degeneration, lumbosacral region (principal); M47.892 Other spondylosis, cervical region; M50.31 Other cervical disc degeneration, high cervical region; M51.27 Other intervertebral disc displacement, lumbosacral region; M79.18 Myalgia, other site; M51.35 Other intervertebral disc degeneration, thoracolumbar region ==

== ENCOUNTER → 2020-07-17 | Outpatient (CLI) | payer OTHER ==
[2020-07-17 13:54] LABS: CHOLESTEROL RISK RATIO 4.71 (<5)
== END ==
LOC: M WUC 09:21
PROVIDERS: ATTEND Physician Assistant
DX: E78.2 Mixed hyperlipidemia (principal)

== ENCOUNTER 2020-08-04 15:15 | Outpatient (RCR) | payer OTHER ==
[~2020-08-04 15:15] MED LIST changes: +HYDR-3490 PO; -HYDR25TAB PO; -LISI-538; -LISI-538 PO; +LISI10TA22 PO; -LISI10TA4 PO; +LISI20TA33; +LISI20TA33 PO; -LISI40TA; +LISI40TA4; +METH-1164 PO; -METH1TAB40 PO
== END 2020-08-10 ==
LOC: M PT 15:15
PROVIDERS: ATTEND Physician Assistant
DX: M51.35 Other intervertebral disc degeneration, thoracolumbar region (principal); M79.18 Myalgia, other site; M47.892 Other spondylosis, cervical region; M50.31 Other cervical disc degeneration, high cervical region; M51.37 Other intervertebral disc degeneration, lumbosacral region; M51.27 Other intervertebral disc displacement, lumbosacral region

== ENCOUNTER → 2020-08-11 | Outpatient (CLI) | payer OTHER ==
[2020-08-11 15:32] LABS: BLOOD UREA NITROGEN 14 MG/DL (7-18); CALCIUM LEVEL 9.5 MG/DL (8.5-10.1); CARBON DIOXIDE LEVEL 31 MEQ/L (21-32); CHLORIDE LEVEL 104 MEQ/L (98-107); CREATININE FOR GFR 1.43 MG/DL (0.70-1.30); GLOMERULAR FILTRATION RATE > 60.0 (>60); GLUCOSE, FASTING 67 MG/DL (70-100); POTASSIUM SERUM 4.1 MEQ/L (3.5-5.1); SODIUM LEVEL 141 MEQ/L (136-145)
== END ==
LOC: M LAB 14:07
PROVIDERS: ATTEND Nurse Practitioner Family
DX: R31.29 Other microscopic hematuria (principal)

== ENCOUNTER → 2020-08-11 | Outpatient (REF) | payer OTHER ==
[2020-08-11 18:38] LABS: APPEARANCE, URINE CLEAR (CLEAR); BACTERIA, URINE AUTO NEGATIVE (NEGATIVE); BILIRUBIN, URINE AUTO NEGATIVE (NEGATIVE); BLOOD, URINE BLOOD 1+ (NEGATIVE); COLOR, URINE STRAW (YELLOW); GLUCOSE, URINE (UA) AUTO NEGATIVE (NEGATIVE); KETONE, URINE AUTO NEGATIVE (NEGATIVE); LEUKOCYTE ESTERASE, URINE AUTO NEGATIVE (NEGATIVE); MUCUS, URINE SMALL (NEGATIVE); NITRITE, URINE AUTO NEGATIVE (NEGATIVE); PROTEIN, URINE AUTO 1+ mg/dL (NEGATIVE); RBC, URINE AUTO 0 /HPF (0-3); SPECIFIC GRAVITY URINE AUTO 1.002 (1.002-1.035); SQUAMOUS EPITHELIAL CELL UR AU 0 /HPF (0-6); UROBILINOGEN, URINE AUTO 0.2 mg/dL (0.0-2.0); WBC, URINE AUTO 0 /HPF (0-3)
== END ==
LOC: M SMT 16:59
PROVIDERS: ATTEND Nurse Practitioner Family
DX: R31.29 Other microscopic hematuria (principal)

== ENCOUNTER → 2020-08-25 | Outpatient (CLI) | payer OTHER ==
[~2020-08-25] MED LIST changes: +ISOVUE-370 76% 100ML VIAL As Ordered ONE
--- NOTE | 2020-08-25 23:57 | REP ---
INDICATION: MICROSCOPIC HEMATURIA. COMPARISON: 06/10/2020 TECHNIQUE: Axial precontrast, contrast-enhanced and delayed images from the lung bases to the pubic symphysis using 100 cc Isovue 370 intravenous contrast material. . This CT examination was performed using the following dose reduction techniques: Automated exposure control, adjustment of mA and/or kv according to the patient's size, and the use of iterative reconstruction technique. FINDINGS: Liver, spleen, pancreas, gallbladder, bilateral adrenal glands and the right kidney are normal. Left kidney includes few small nonobstructing calculi up to 2.5 mm. No perinephric stranding, hydroureteronephrosis, or obstructing ureteral calculus. The enteric system including stomach, small, and large bowel appears normal. No evidence for obstruction or acute inflammatory process. Normal terminal ileum and appendix are identified in the right lower quadrant. Pelvis demonstrates normal bladder and age-appropriate prostate/seminal vesicles. No ascites. No free air. No intraperitoneal or retroperitoneal adenopathy. Abdominal aorta and vasculature appear normal. Musculoskeletal structures are intact and without acute osseous abnormality. IMPRESSION: 1. Few left renal nephroliths up to 2.5 mm. No further urinary tract pathology. 2. No further acute abdominopelvic pathology. <Electronically signed by Aris Strauss > 08/25/20 [id number]
== END ==
LOC: M RAD 15:29
PROVIDERS: ATTEND Nurse Practitioner Family
DX: R31.29 Other microscopic hematuria (principal)
CPT/HCPCS: 74178; Q9967

== ENCOUNTER 2020-09-01 21:20 | Emergency (ER) | payer OTHER ==
[~2020-09-01] VITALS: Ht 190.5 cm; Wt 117.9 kg
[~2020-09-01 21:20] MED LIST changes: -ISOVUE-370 76% 100ML VIAL As Ordered ONE
[2020-09-01] MEDS ORDERED: MORPHINE 4 MG/ML 1ML VIAL/SYRINGE (J2270) IV ONE (22:30)
[2020-09-01] MEDS ORDERED: NS 1,000 ML IV ONE (22:30)
[2020-09-01] MEDS ORDERED: ONDANSETRON 4MG/2ML VIAL IV ONE (22:30)
[2020-09-01 22:33] LABS: BASO % 0.6 % (0.0-1.0); EOS # 0.2 10^3/uL (0.0-0.5); EOS % 3.6 % (0.0-3.0); HEMATOCRIT 45.1 % (42.0-52.0); HEMOGLOBIN 16.2 g/dl (13.5-17.5); LYMPH # 2.6 10^3/uL (1.5-5.0); LYMPH % 42.6 % (24.0-44.0); MEAN CORPUSCULAR HEMOGLOBIN 30.1 pg (27.0-33.0); MEAN CORPUSCULAR HGB CONC 35.9 g/dl (32.0-36.5); MEAN CORPUSCULAR VOLUME 83.8 fl (80.0-96.0); MONO # 0.5 10^3/uL (0.0-0.8); MONO % 7.6 % (2.0-8.0); NEUTROPHILS # 2.8 10^3/uL (1.5-8.5); NEUTROPHILS % 45.4 % (36.0-66.0); PLATELET COUNT, AUTOMATED 185 10^3/uL (150-450); RED BLOOD COUNT 5.38 10^6/uL (4.30-6.10); WHITE BLOOD COUNT 6.2 10^3/uL (4.0-10.0)
[2020-09-01 22:54] LABS: ALBUMIN 3.5 GM/DL (3.2-5.2); ALT/SGPT 41 U/L (12-78); BILIRUBIN,DIRECT < 0.1 MG/DL (0.0-0.2); BILIRUBIN,TOTAL 0.2 MG/DL (0.2-1.0); LIPASE 205 U/L (73-393); TOTAL PROTEIN 6.9 GM/DL (6.4-8.2)
--- NOTE | 2020-09-01 23:27 | REPVR ---
PROCEDURE INFORMATION: Exam: US Scrotum Exam date and time: 09/01/2020 11:15 PM Age: 40 years old Clinical indication: Scrotum pain; Additional info: Bilat testicular pain R/O torsion TECHNIQUE: Imaging protocol: Real-time ultrasound of the scrotum and contents with color Doppler and image documentation. COMPARISON: No relevant prior studies available. FINDINGS: Right testicle: The right testis demonstrates homogeneous parenchyma and measures 5.2 x 2.5 x 3.1 cm with normal arterial and venous blood flow and normal color flow. Left testicle: The left testis demonstrates homogeneous parenchyma and measures 4.6 x 2.6 x 3.0 cm and demonstrates arterial and venous blood flow and normal color flow. Epididymides: The right epididymal head measures 9 mm. The left epididymal head measures 9 mm with a 3 mm cyst. There is slightly increased blood flow to the left epididymal body. Scrotum: Normal. IMPRESSION: 1. Slightly increased blood flow to the left epididymal body which may reflect epididymitis. 2. Otherwise negative testicular sonogram with normal bilateral testicular blood flow. No torsion. Electronically signed by: Tommie Khalil On 09/01/2020 23:27:48 PM
[2020-09-01] MEDS ORDERED: ISOVUE-370 76% 100ML VIAL As Ordered ONE (23:29)
--- NOTE | 2020-09-01 23:51 | REPVR ---
PROCEDURE INFORMATION: Exam: CT Abdomen And Pelvis With Contrast Exam date and time: 09/01/2020 11:24 PM Age: 40 years old Clinical indication: Abdominal pain; Localized; Right lower quadrant (rlq); Patient HX: Chills, vomits; Additional info: Rlq pain TECHNIQUE: Imaging protocol: Computed tomography of the abdomen and pelvis with contrast. Radiation optimization: All CT scans at this facility use at least one of these dose optimization techniques: automated exposure control; mA and/or kV adjustment per patient size (includes targeted exams where dose is matched to clinical indication); or iterative reconstruction. Contrast material: ISO; Contrast volume: 100 ml; Contrast route: INTRAVENOUS (IV); COMPARISON: CT ABD PELVIS W/O FOL BY WIT 08/25/2020 3:36 PM FINDINGS: Liver: The liver attenuation is 53 Hounsfield units and the spleen is 81 Hounsfield units. Gallbladder and bile ducts: The gallbladder is somewhat contracted with no stones. Pancreas: Normal. No ductal dilation. Spleen: Normal. No splenomegaly. Adrenal glands: Normal. No mass. Kidneys and ureters: Small nonobstructing left renal calculi. Stomach and bowel: Mild stool throughout much of the colon. Appendix: A normal appendix is seen. Intraperitoneal space: Unremarkable. No free air. No significant fluid collection. Vasculature: Unremarkable. No abdominal aortic aneurysm. Lymph nodes: Unremarkable. No enlarged lymph nodes. Urinary bladder: Unremarkable as visualized. Reproductive: Unremarkable as visualized. Bones/joints: Unremarkable. No acute fracture. Soft tissues: Unremarkable. IMPRESSION: 1. Small nonobstructing left renal calculi. 2. Otherwise negative CT abdomen/pelvis. A normal appendix is seen. Electronically signed by: Tommie Khalil On 09/01/2020 23:51:08 PM
[2020-09-02 00:18] VITALS: BP 162/78
== END 2020-09-02 00:20 | disposition home or self-care (01) ==
LOC: M ED 21:20
DX: R10.9 Unspecified abdominal pain (principal); N20.0 Calculus of kidney; N50.819 Testicular pain, unspecified; R11.0 Nausea; I10 Essential (primary) hypertension; E78.5 Hyperlipidemia, unspecified; Z87.442 Personal history of urinary calculi; I49.3 Ventricular premature depolarization; M54.9 Dorsalgia, unspecified; Z88.8 Allergy status to other drugs, medicaments and biological substances; Z79.899 Other long term (current) drug therapy
CPT/HCPCS: 74160; 76870; 80047; 80076; 81001; 83690; 85025; 93041; 93976; 96361; 96374; 96375; 99284; J2270; J2405; Q9967

== ENCOUNTER → 2020-12-03 | Outpatient (CLI) | payer OTHER ==
[2020-12-03 13:43] LABS: BLOOD UREA NITROGEN 12 MG/DL (7-18); CALCIUM LEVEL 9.1 MG/DL (8.5-10.1); CARBON DIOXIDE LEVEL 31 MEQ/L (21-32); CHLORIDE LEVEL 103 MEQ/L (98-107); CREATININE FOR GFR 1.37 MG/DL (0.70-1.30); GLOMERULAR FILTRATION RATE > 60.0 (>60); GLUCOSE, FASTING 93 MG/DL (70-100); POTASSIUM SERUM 3.7 MEQ/L (3.5-5.1); SODIUM LEVEL 139 MEQ/L (136-145)
[2020-12-03 13:53] LABS: TOTAL PROTEIN,RANDOM URINE 125.7 MG/DL (0.0-12.0)
== END ==
LOC: M LAB 12:51
PROVIDERS: ATTEND Hospitalist
DX: R80.9 Proteinuria, unspecified (principal)

== ENCOUNTER → 2020-12-03 | Outpatient (REF) | payer OTHER | LOC: M SFHCPLAZ 12:02 | PROVIDERS: ATTEND Family Medicine | DX: R80.9 Proteinuria, unspecified (principal) ==

== ENCOUNTER → 2021-03-09 | Outpatient (CLI) | payer OTHER ==
--- NOTE | 2021-03-17 15:13 | SLEEPHOME ---
DATE: 03/09/2021 ORDERED BY: Tavia Keen Diagnostic home sleep testing was performed due to concern for the obstructive sleep apnea syndrome in this patient with a history of excessive somnolence, snoring, and nonrestorative sleep. For testing, a nocturnal T3 respiratory monitoring device was used. Continuous record was made of pulse, oxygen saturation, air flow, chest and abdominal strain, and body position. There was 9 hours and 59 minutes of data reviewed. There was 6 hours and 28 minutes marked as time in bed. During the interval marked time in bed, there were 131 respiratory events identified of 10 seconds in duration or greater for a respiratory event index of 20.2. The events were primarily obstructive. There were eight mixed and central apneas. Baseline pulse rate 71. Pulse rate ranged 51-174. Baseline saturation 96%. Saturations fell to 83%.. Testing was performed in both the supine and nonsupine positions. IMPRESSION: Abnormal home sleep testing with repetitive respiratory events and oxygen desaturations to 83% with a respiratory event index of 20.2 is consistent with the obstructive sleep apnea syndrome. RECOMMENDATION: The patient should be encouraged to undergo formal sleep evaluation.
== END ==
LOC: M SLEEP HO 13:07
PROVIDERS: ATTEND Nurse Practitioner Family
DX: R06.83 Snoring (principal)

== ENCOUNTER 2021-03-27 02:17 | Emergency (ER) | payer OTHER ==
[~2021-03-27] VITALS: Ht 190.5 cm; Wt 113.6 kg
--- OUTSIDE RECORDS SUMMARY | 2021-03-27 02:28 | CCD ---
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 Name Role Phone Mark Silveira Unavailable PROBLEMS Type Condition ICD9-CM Code STI99-JU Code Onset Dates Condition S tatus W/U Status Risk SNOMED Code Notes Problem Hydronephrosis N13.30 Active confirmed 76052 006 Problem Episodic tension-type headache, not intractable G4 4.219 Active confirmed 062188665 Problem Mixed hyperlipidemia E78.2 Active confirmed 598924051 Problem Ureteral stricture, left N13.5 Active confirmed 71396147 Problem Panic disorder [episodic paroxysmal anxiety] F41.0 Active confirmed 982163446 Problem Anxiety F41.9 Active confirmed 51953951 Problem GERD without esophagitis K21.9 Active confirmed 184334759 Problem Generalized anxiety disorder F41.1 Active confirme d 85560535 Problem Secondary hypertension I15.9 Active confirmed 94184433 Problem Dyslipidemia E78.5 Active confirmed 5852425 07 Problem Dry eyes H04.123 Active confirmed 494698314 Problem PVC (premature ventricular contraction) I49.3 Active confirmed 14481425 Problem Dry eyes, bilateral H04.123 Active confirmed 863562035 Problem Nephrolithiasis N20.0 Active confirmed 9557 0007 Problem Microscopic hematuria R31.29 Active confirmed 990211315 Problem Premature ventricular contractions I49.3 Activ e confirmed 63029810 Problem Hypertension, unspecified type I10 Active confir med 25456901 Problem Essential hypertension I10 Active confirmed 89983071 Problem Accelerated essential hypertension I10 Active co nfirmed 84780550 Problem Stable angina I20.8 Active confirmed 242990 005 Problem 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 Acti ve confirmed 501307109 Problem Kidney stone on left side N20.0 Active confirmed 28501617 ALLERGIES Allergen (clinical drug ingredient) Drug/Non Drug Allergy do cumented on EMR Reaction Allergy Type Onset Date Status oxycodone Oxycodone HCl([facility] Code:[address]-11) Nausea/Vomiting Drug Allergy Active tamsulosin Tamsulosin HCl([facility] Code:[address]-73) breathing issue s Drug Allergy Active ENCOUNTERS from 1978 to 2021-03-25 Encounter Location Date Provider Diagnosis [facility] [phone] [place] [address] Mar, Mark Silveira IMMUNIZATIONS No Information SOCIAL HISTORY Tobacco Use: Social History Observation Description Date Details (start date - stop date) Never Smoker Sex Assigned At : Social History Observation Description Sex Assigned At Unknown Education: Question Answer Notes 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 Sexual Hx: Question Answer Notes Had sex in the last 12 months (vaginal, oral, or anal)? Yes Have you ever had an STD? No with Women only Drug and Alcohol Question Answer Notes Total Score: 0 Interpretation: No problems reported Alcohol Screening: Question Answer Notes Did you have a drink containing alcohol in the past year? No Points 0 Interpretation Negative Tobacco Use: Question Answer Notes Are you a: never smoker REASON FOR REFERRAL No Information VITAL SIGNS No information MEDICATIONS Medication SIG (Take, Route, Frequency, Duration) Notes Start Da te End Date Status Albuterol Sulfate HFA 108 (90 Base) MCG/ACT 1 puff as needed Inhalation every 4 hrs Mar, Not-Taking Nitroglycerin 0.3 MG Take 1 tab Q5mins as needed chestpain total of 3 Tabs in 15mins. Sublingual PRN for chestpain for 30 days Mar, Active Lidocaine 5 % 1 patch remove after 12 hours Externally Once a day for 5 day(s) May, Not-Taking Cephalexin 500 MG 1 capsule 1 hour prior to yo ur cystoscopy Orally Once for 1 days Aug, Not-Taking dilTIAZem HCl 90 MG 2 tabs Orally once daily Jul, Active hydroCHLOROthiazide 25 MG 1 tablet in the morning Orally Once a day Mar, Active DULoxetine HCl 20 MG 1 capsule Orally Twice a day As needed Active Lisinopril 40 MG 1 tablet Orally Once a day for 30 day(s) Active Zofran 4 MG 1 tablet Orally four times daily as needed for 7 days Dec, Not-Taking Omeprazole 20 MG 1 tablet 30 minutes before m orning meal Orally Once a day for 30 day(s) Jun, Not-Taking Ibuprofen Not-Taking Lisinopril 20 MG 1 tablet Orally Once a day Not-Taking cloNIDine HCl 0.1 MG 1 tablet Orally Once a day Mar, Not-Taking Senokot S 8.6-50 MG 1 tablet in the evening as n eeded Orally Once a day for 30 day(s) Aug, Active GenTeal Tears 0.1-0.3 % apply 2 drops to each eye 4 times a day as needed for dry eyes Ophthalmic four times daily as needed for 30 days 2019 Active traMADol HCl 50 MG as directed Orally bid Not-Taking Lyrica 25 MG 1 capsule Orally Once a day Not-Taking Lisinopril 30 MG 1 tablet Orally Once a day for 30 day(s) May, Not-Taking Tylenol Not-Taking Aspirin 81 81 MG 1 tablet Orally Once a day for 30 Active Isosorbide Dinitrate 30 MG 1 tablet Orally Twice a day Apr, Active Atorvastatin Calcium 40 MG 1 tablet Orally Once a day for 30 day(s) taking MWF SAT Apr, Active PROCEDURES No Information RESULTS No Results REASON FOR VISIT [facility] MEDICAL (GENERAL) HISTORY Type Description Date Medical History neck pain Medical History chest pain Medical History kidney stone Medical History Ureteral Stone Surgical History none Surgical History URETEROSCOPY LEFT STENT PLACEMENT 019 Surgical History CYSTO LEFT STENT REMOVAL 02/02/2019 Hospitalization History kidney stone related 12/29/2018 Goals Section No Information Health Concerns No Information MEDICAL EQUIPMENT No Information MENTAL STATUS No Information FUNCTIONAL STATUS No Information ASSESSMENTS No Information PLAN OF TREATMENT Next Appt Details Provider Name:Mark Carlee Silveira, 1-10- 14 03:00:00 PM, [id number] , , [place], [address], Provider Name:Ronak Toussaintll, 2021-04-15 09: 30:00 AM, [address] [facility], , [place], [address], Provider Name:Mark Silveira, 01:45:00 PM, [address], , [place], [address], Insurance Providers Payer Name Payer Address Payer Phone Insured Name Patient Relati onship to Insured Coverage Start Date Coverage End Date [facility] [employer] [address] [facility] [id number] KANE GRAF self
--- OUTSIDE RECORDS SUMMARY | 2021-03-27 02:28 | CCD | Continuity of Care Document ---
Author Author Andrei KEEN N.Juan Organization Unknown Address [address] [place] [address] Phone [phone] Care Team Providers Care Yarrow Gatherer Name Role Phone Tata Rehman M.D. AUTM [phone] AUTM Unavailable Ko Tao D.O. AUTM [phone] Shirley Moise AUTM [phone] AUTM Unavailable AUTM Unavailable Problems Active Problems Provider Date Essential hypertension JESÚS Guillaume Onset: 07/15/2020 Social History Type Date Description Comments Sex Unknown Tobacco Use Start: Unknown Never Smoked Cigarettes Smoking Status Reviewed: 07/22/20 Never Smoked Cigarettes Smokeless Tobacco Never Used Smokeless Tobacco ETOH Use Denies alcohol use Tobacco Use Start: Unknown Patient has never smoked Allergies, Adverse Reactions, Alerts Active Allergies Criticality Reaction | Severity Comments Date Tamsulosin Unable to assess criticality SINUS STUFFINESS 07/15/2020 Methocarbamol Unable to assess criticality TACHYCARDIA 07/22/2020 Amlodipine Unable to assess criticality 02/20/2021 Medications Active Medications SIG Qnty Indications Ordering Provide r Date Lisinopril 40mg Tablets 1 tab by mouth every evening Unknown Aspirin 81 Low Dose 81mg Chewtabs 1 by mouth every day Unknown Rosuvastatin Calcium 20mg Tablets 1 tab by mouth every day at bedtime Unknown Tylenol 8 Hour Arthritis Pain 650mg Tablets ER 1 by mouth as needed every 8 hours Unknow n Immunizations Description No Information Available Vital Signs Date Vital Result Comment 02/20/2021 8:15am BP Systolic 142 mmHg BP Diastolic 84 mmHg Heart Rate 70 /min O2 % BldC Oximetry 98 % Height 75 inches 6'3" Weight 263.00 lb BMI (Body Mass Index) 32.9 kg/m2 [place] Body Weight 196 lb Neck Circumference in inches 18 [place] Score 11 Weight 119.297 kg BSA (Body Surface Area) 2.47 m2 07/22/2020 10:56am BP Systolic 171 mmHg BP Diastolic 101 mmHg Heart Rate 74 /min Height 75 inches 6'3" Weight 256.38 lb BMI (Body Mass Index) 32.0 kg/m2 [place] Body Weight 196 lb Weight 116.292 kg BSA (Body Surface Area) 2.44 m2 Results Description No Information Available Procedures Date Code Description Status 02/20/2021 29759 Office/Outpatient New Low MDM 30 -44 Minutes Completed Medical Devices Description No Information Available Encounters Type Date Location Provider Dx Diagnosis Office Visit 02/20/2021 8:00a [facility] Wilman Keen N.P. R06.83 Snoring R40.0 Somnolence Assessments Date Code Description Provider 02/20/2021 R06.83 Snoring Tavia Keen, N .PDenisha 02/20/2021 R40.0 Somnolence Tavia Keen N .P. Plan of Treatment Future Appointment(s):* 03/24/2021 2:45 pm - Tavia Keen N.PDenisha at [facility] * 03/09/2021 8:00 pm - [facility] at [facility] 02/20/2021 - Tavia Keen N.Juan* R06.83 Snoring * R40.0 Somnolence * * New Orders:* Sleep Home Sleep Test, Scheduled: 03/09/21 * Comments:* - For evaluation of sleep apnea syndrome symptoms, home sleep test will be arranged. - We have discussed what is to be expected during a home sleep test. * Follow up:* 1. Follow up after testing. Functional Status Description No Information Available Mental Status Description No Information Available Referrals Refer to Reason for Referral Status Appt Date Tavia Keen F.NElodia ARVIN Scheduled 03/27/2021 [facility] [address] [place], [place] [address] [phone] Song Deras, Kaden. ABN NOC OX Closed [facility] [address] [place], [place] [address] [phone]
--- OUTSIDE RECORDS SUMMARY | 2021-03-27 02:28 | CCD | Continuity of Care Document ---
Author Author Andrei KEEN N.PDenisha Organization Unknown Address [address] [place] [address] Phone [phone] Care Team Providers Care Steel Cutter Name Role Phone Tata Rehman M.D. AUTM [phone] AUTM Unavailable Shirley Moise AUTM [phone] AUTM Unavailable AUTM Unavailable Rebeka Jones AUTM [phone] Problems Active Problems Provider Date Essential hypertension JESÚS Guillaume Onset: 07/15/2020 Social History Type Date Description Comments Sex Unknown Tobacco Use Start: Unknown Never Smoked Cigarettes Smoking Status Reviewed: 03/24/21 Never Smoked Cigarettes Smokeless Tobacco Never Used Smokeless Tobacco ETOH Use Denies alcohol use Tobacco Use Start: Unknown Patient has never smoked Allergies and adverse reactions Active Allergies Criticality Reaction | Severity Comments Date Tamsulosin Unable to assess criticality SINUS STUFFINESS 07/15/2020 Methocarbamol Unable to assess criticality TACHYCARDIA 07/22/2020 Amlodipine Unable to assess criticality 02/20/2021 Medications Active Medications SIG Qnty Indications Ordering Provide r Date Lisinopril 20mg Tablets 1 tab by mouth every evening Unknown Aspirin 81 Low Dose 81mg Chewtabs 1 by mouth every day Unknown Rosuvastatin Calcium 20mg Tablets 1 tab by mouth every day at bedtime Unknown Tylenol 8 Hour Arthritis Pain 650mg Tablets ER 1 by mouth as needed every 8 hours Unknow n Immunizations Description No Information Available Vital Signs Date Vital Result Comment 03/24/2021 2:48pm BP Systolic 120 mmHg BP Diastolic 70 mmHg Heart Rate 67 /min O2 % BldC Oximetry 98 % Height 75 inches 6'3" Weight 260.00 lb BMI (Body Mass Index) 32.5 kg/m2 [place] Body Weight 196 lb Weight 117.936 kg BSA (Body Surface Area) 2.45 m2 02/20/2021 8:15am BP Systolic 142 mmHg BP Diastolic 84 mmHg Heart Rate 70 /min O2 % BldC Oximetry 98 % Height 75 inches 6'3" Weight 263.00 lb BMI (Body Mass Index) 32.9 kg/m2 [place] Body Weight 196 lb Neck Circumference in inches 18 [place] Score 11 Weight 119.297 kg BSA (Body Surface Area) 2.47 m2 Results Description No Information Available Procedures Date Code Description Status 03/24/2021 97615 Office/Outpatient Established Lo w MDM 20-29 Min Completed 02/20/2021 94985 Office/Outpatient New Low MDM 30 -44 Minutes Completed Medical Devices Description No Information Available Encounters Type Date Location Provider Dx Diagnosis Office Visit 03/24/2021 3:00p [facility] Wilman Keen, N.P. G47.33 Obstructive sleep apnea (adult) (pediatr ic) Z71.2 Person consulting for explan ation of exam or test findings Office Visit 02/20/2021 8:00a [facility] Wilman Keen, N.P. R06.83 Snoring R40.0 Somnolence Assessments Date Code Description Provider 03/24/2021 G47.33 Obstructive sleep apnea (adult) (pediatric) Tavia Keen, N.P. 03/24/2021 Z71.2 Person consulting fo r explanation of examination or test findings Tavia Keen N.P. 02/20/2021 R06.83 Snoring Tavia Keen N .PDenisha 02/20/2021 R40.0 Somnolence Tavia Keen, N .Juan Plan of Treatment Future Appointment(s):* 05/13/2021 3:00 pm - Tavia Keen, N.PDenisha at [facility] * 04/14/2021 12:00 pm - Nocturnal Oximetry at [facility] 03/24/2021 - Tavia Keen N.P.* G47.33 Obstructive sleep apnea (adult) (pediatric) * Z71.2 Person consulting for explanation of examination or test findings * * New Orders:* Nocturnal Oximetry, Ordered: 03/24/21 * Follow up:* 1. Nocturnal oximetry in 2-4 weeks. 2. Follow up in 45-60 days with a compliance report. Functional Status Description No Information Available Mental Status Description No Information Available Referrals Refer to Dr Reason for Referral Status Appt Date Tavia Keen F.N.P. ARVIN Closed 03/27/2021 [facility] [address] [place], [place] [address] [phone] Song Deras R.P.A.-C. ABN NOC OX Closed [facility] [address] [place], [place] [address] [phone]
--- OUTSIDE RECORDS SUMMARY | 2021-03-27 02:28 | CCD | Continuity of Care Document ---
Author Author Andrei KEEN N.PDenisha Organization Unknown Address [address] [place] [address] Phone [phone] Care Team Providers Care Sports Activities Foul Judge Name Role Phone Tata Rehman M.D. AUTM [phone] AUTM Unavailable Shirley Moise AUTM [phone] AUTM Unavailable AUTM Unavailable Rebeka Jones AUTM [phone] Problems Active Problems Provider Date Essential hypertension [...] lb BMI (Body Mass Index) 32.5 kg/m2 [place] Body Weight 196 lb Weight 117.936 kg BSA (Body Surface Area) 2.45 m2 02/20/2021 8:15am BP Systolic 142 mmHg BP Diastolic 84 mmHg Heart Rate 70 /min O2 % BldC Oximetry 98 % Height 75 inches 6'3" Weight 263.00 lb BMI (Body Mass Index) 32.9 kg/m2 [place] Body Weight 196 lb Neck Circumference in inches 18 [place] Score 11 Weight 119.297 kg BSA (Body Surface Area) 2.47 m2 Results Description No Information Available Procedures Date Code Description Status 02/20/2021 04408 Office/Outpatient New Low MDM 30 -44 Minutes Completed Medical Devices Description No Information Available Encounters Type Date Location Provider Dx Diagnosis Office Visit 02/20/2021 8:00a [facility] Wilman Keen N.P. R06.83 Snoring R40.0 Somnolence Assessments Date Code Description Provider 03/24/2021 G47.33 Obstructive sleep apnea (adult) (pediatric) Tavia Keen, N.P. 03/24/2021 Z71.2 Person consulting fo r explanation of examination or test findings Tavia Keen, N.P. 02/20/2021 R06.83 Snoring Tavia Keen, N .P. 02/20/2021 R40.0 Somnolence Tavia Keen, N .P. Plan of Treatment Future Appointment(s):* 05/13/2021 3:00 pm - Tavia Keen, N.P. at [facility] * 04/14/2021 12:00 pm - Nocturnal Oximetry at [facility] 03/24/2021 - Tavia Keen, N.P.* G47.33 Obstructive sleep apnea (adult) (pediatric) * Z71.2 Person consulting for explanation of examination or test findings * * New Orders:* Apap New Set Up, Ordered: 03/24/21 * Nocturnal Oximetry, Ordered: 03/24/21 * Follow up:* 1. Nocturnal oximetry in 2-4 weeks. 2. Follow up in 45-60 days with a compliance report. Functional Status Description No Information Available Mental Status Description No Information Available Referrals Refer to Dr Reason for Referral Status Appt Date Tavia Keen F.N.P. ARVIN [facility] [address] [place], [place] [address] [phone] Song Deras R.P.A.-C. ABN NOC OX Closed [facility] [address] [place], [place] [address] [phone]
--- OUTSIDE RECORDS SUMMARY | 2021-03-27 02:29 | CCD ---
Author Author [facility] Organization [facility] Address Unknown Phone Unavailable Support Name Relationship Address Phone HOMARANNEMA Next Of Kin [address] [place] [address] ST Next Of Kin Unknown Unavailable ALLIED [facility] Next Of Kin [address] [facility] [address] [place] [address] JOYA GRAF Next Of [facility] [address] [place] [address] [facility] [place] [address] SECURITY Next Of [address] [address] ICU SECURITY PRIVATE INVESTG Next Of [facility] [address] [place] [address] ICU SECURITY PRIVATE INVESTGATION Next Of [facility] [address] [place] [address] AUGUSTIN ODONNELL Next Of [facility] [address] [place] [address] Dille DDS, Noni Next Of [facility] [address] [place], [place] [id number] Dille DDS, Noni Next Of [facility] [address] [place] [address] [employer] Next Of [address] [address] MARELY GRAF Next Of [facility] [address] [place] [address] UE Next Of Kin Unknown Unavailable SECURITAS Next Of Kin [address] [place] [address] SECRURITAS Next Of Kin [address] [facility] [place] [address] ТАТЬЯНА DONAHUE Next Of Kin [address] [place] [address] MARY DONAHUE Next Of Kin [address] [place] [address] Augustin Odonnell [address] [place] [address] [phone] Care Team Providers [employer] 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 Name Role Phone HANK, HUY RICK GREASER HELPER-C Unavailable Unavailable HANK, HUY RICK GREASER HELPER-C Unavailable Unavailable HANK, HUY RICK GREASER HELPER-C Unavailable Unavailable HANK, HUY RICK GREASER HELPER-C Unavailable Unavailable HANK, HUY RICK GREASER HELPER-C Unavailable Unavailable HANK, HUY RICK GREASER HELPER-C Unavailable Unavailable HANK, HUY RICK GREASER HELPER-C Unavailable Unavailable HANK, HUY RICK GREASER HELPER-C Unavailable Unavailable HANK, HUY RICK GREASER HELPER-C Unavailable Unavailable HANK, HUY RICK GREASER HELPER-C Unavailable Unavailable HANK, HUY RICK GREASER HELPER-C Unavailable Unavailable HANK, HUY RICK GREASER HELPER-C Unavailable Unavailable HANK, HUY RICK GREASER HELPER-C Unavailable Unavailable HANK, HUY RICK GREASER HELPER-C Unavailable Unavailable HANK, HUY RICK GREASER HELPER-C Unavailable Unavailable HANK, HUY RICK GREASER HELPER-C Unavailable Unavailable HANK, HUY RICK GREASER HELPER-C Unavailable Unavailable Jose Maria, V PASQUALE PA-C Unavailable Unavailable Platte, V PASQUALE PA-C Unavailable Unavailable Platte, V PASQUALE PA-C Unavailable Unavailable Jose Maria, V PASQUALE PA-C Unavailable Unavailable Platte, V PASQUALE PA-C Unavailable Unavailable Platte, V PASQUALE PA-C Unavailable Unavailable Jose Maria, V PASQUALE PA-C Unavailable Unavailable Platte, V PASQUALE PA-C Unavailable Unavailable Jose Maria, V PASQUALE PA-C Unavailable Unavailable Jose Maria, V PASQUALE PA-C Unavailable Unavailable Platte, V PASQUALE PA-C Unavailable Unavailable Platte, V PASQUALE PA-C Unavailable Unavailable Platte, V PASQUALE PA-C Unavailable Unavailable Platte, V PASQUALE PA-C Unavailable Unavailable Perez, L Marla RPA Unavailable Unavailable Perez, L Marla RPA Unavailable Unavailable Perez, L Marla RPA Unavailable Unavailable Perez, L Marla RPA Unavailable Unavailable Perez, L Marla RPA Unavailable Unavailable Perez, L Marla RPA Unavailable Unavailable Perez, L Marla RPA Unavailable Unavailable Perez, L Marla RPA Unavailable Unavailable Perez, L Marla RPA Unavailable Unavailable Perez, L Marla RPA Unavailable Unavailable Perez, L Marla RPA Unavailable Unavailable Perez, L Marla RPA Unavailable Unavailable Perez, L Marla RPA Unavailable Unavailable Perez, L Marla RPA Unavailable Unavailable Perez, L Marla RPA Unavailable Unavailable Perez, L Marla RPA Unavailable Unavailable Perez, L Marla RPA Unavailable Unavailable Perez, L Marla RPA Unavailable Unavailable Perez, L Marla RPA Unavailable Unavailable Perez, L Marla RPA Unavailable Unavailable Perez, L Marla RPA Unavailable Unavailable Perez, L Marla RPA Unavailable Unavailable Perez, L Marla RPA Unavailable Unavailable Perez, L Marla RPA Unavailable Unavailable Perez, L Marla RPA Unavailable Unavailable Perez, L Marla RPA Unavailable Unavailable Perez, L Marla RPA Unavailable Unavailable Perez, L Marla RPA Unavailable Unavailable Perez, L Marla RPA Unavailable Unavailable Perez, L Marla RPA Unavailable Unavailable Perez, L Marla RPA Unavailable Unavailable Perez, L Marla RPA Unavailable Unavailable PRESTON, M ELEANOR PA Unavailable Unavailable PRESTON, M ELEANOR PA Unavailable Unavailable PRESTON, M ELEANOR PA Unavailable Unavailable PRESTON, M ELEANOR PA Unavailable Unavailable PRESTON, M ELEANOR PA Unavailable Unavailable PRESTON, M ELEANOR PA Unavailable Unavailable PRESTON, M ELEANOR PA Unavailable Unavailable PRESTON, M ELEANOR PA Unavailable Unavailable PRESTON, M ELEANOR PA Unavailable Unavailable PRESTON, M ELEANOR PA Unavailable Unavailable PRESTON, M ELEANOR PA Unavailable Unavailable PRESTON, M ELEANOR PA Unavailable Unavailable PRESTON, M ELEANOR PA Unavailable Unavailable PRESTON, M ELEANOR PA Unavailable Unavailable PRESTON, M ELEANOR PA Unavailable Unavailable PRESTON, M ELEANOR PA Unavailable Unavailable PRESTON, M ELEANOR PA Unavailable Unavailable PRESTON, M ELEANOR PA Unavailable Unavailable PRESTON, M ELEANOR PA Unavailable Unavailable PRESTON, M ELEANOR PA Unavailable Unavailable PRESTON, M ELEANOR PA Unavailable Unavailable PRESTON, M ELEANOR PA Unavailable Unavailable PRESTON, M ELEANOR PA Unavailable Unavailable PRESTON, M ELEANOR PA Unavailable Unavailable Tata Rehman MD Unavailable Unavailable Tata Rehman MD Unavailable Unavailable Tata Rehman MD Unavailable Unavailable Tata Rehman MD Unavailable Unavailable Tata Rehman MD Unavailable Unavailable Tata Rehman MD Unavailable Unavailable Tata Rehman MD Unavailable Unavailable Tata Rehman MD Unavailable Unavailable Tata Rehman MD Unavailable Unavailable Tata Rehman MD Unavailable Unavailable Tata Rehman MD Unavailable Unavailable Tata Rehman MD Unavailable Unavailable Tata Rehman MD Unavailable Unavailable Tata Rehman MD Unavailable Unavailable Tata Rehman MD Unavailable Unavailable Tata Rehman MD Unavailable Unavailable Tata Rehman MD Unavailable Unavailable Tata Rehman MD Unavailable Unavailable Tata Rehman MD Unavailable Unavailable Tata Rehman MD Unavailable Unavailable Tata Rehman MD Unavailable Unavailable Tata Rehman MD Unavailable Unavailable Tata Rehman MD Unavailable Unavailable Tata Rehman MD Unavailable Unavailable Tata Rehman MD Unavailable Unavailable Tata Rehman MD Unavailable Unavailable Tata Rehman MD Unavailable Unavailable Tata Rehman MD Unavailable Unavailable Tata Rehman MD Unavailable Unavailable Tata Rehman MD Unavailable Unavailable Tata Rehman MD Unavailable Unavailable Tata Rehman MD Unavailable Unavailable Tata Rehman MD Unavailable Unavailable Tata Rehman MD Unavailable Unavailable Tata Rehman MD Unavailable Unavailable Tata Rehman MD Unavailable Unavailable Tata Rehman MD Unavailable Unavailable Tata Rehman MD Unavailable Unavailable Tata Rehman MD Unavailable Unavailable Tata Rehman MD Unavailable Unavailable Tata Rehman MD Unavailable Unavailable Tata Rehman MD Unavailable Unavailable Tata Rehman MD Unavailable Unavailable Tata Rehman MD Unavailable Unavailable Tata Rehman MD Unavailable Unavailable Tata Rehman MD Unavailable Unavailable Tata Rehman MD Unavailable Unavailable Tata Rehman MD Unavailable Unavailable Tata Rehman MD Unavailable Unavailable Tata Rehman MD Unavailable Unavailable Tata Rehman MD Unavailable Unavailable Tata Rehman Unavailable Unavailable SleTata ram MD Unavailable Unavailable SleTata ram Unavailable Unavailable SleTata ram MD Unavailable Unavailable Sleleanna, Tata MD Unavailable Unavailable Tata Rehman MD Unavailable Unavailable Tata Rehman MD Unavailable Unavailable Re-disclosure Warning The records that you are about to access may contain information from federally-assisted alcohol or drug abuse programs. If such information is present, then the following federally mandated warning applies: This information has been disclosed to you from records protected by federal confidentiality rules (42 CFR part 2). The federal rules prohibit you from making any further disclosure of this information unless further disclosure is expressly permitted by the written consent of the person to whom it pertains or as otherwise permitted by 42 CFR part 2. A general authorization for the release of medical or other information is NOT sufficient for this purpose. The Federal rules restrict any use of the information to criminally investigate or prosecute any alcohol or drug abuse patient.The records that you are about to access may contain highly sensitive health information, the redisclosure of which is protected by Article 27-F of the [facility] Public Health law. If you continue you may have access to information: Regarding HIV / AIDS; Provided by facilities licensed or operated by the [facility] Office of Mental Health; or Provided by the [facility] Office for People With Developmental Disabilities. If such information is present, then the following [facility] mandated warning applies: This information has been disclosed to you from confidential records which are protected by state law. State law prohibits you from making any further disclosure of this information without the specific written consent of the person to whom it pertains, or as otherwise permitted by law. Any unauthorized further disclosure in violation of state law may result in a fine or penitentiary sentence or both. A general authorization for the release of medical or other information is NOT sufficient authorization for further disc losure. Allergies and Adverse Reactions Type Description Substance Reaction Status Data Source(s ) Propensity to adverse reactions TAMSULOSIN tamsulosin Shortness Of Breath High Active [facility] High Propensity to adverse reactions OXYCODONE Oxycodone Acti ve [facility] Propensity to adverse reactions METHOCARBAMOL Methocarbamol Palpita tions Low Active [facility] Low Family History Family Member Name Family Member Gender Family Member Status Date o f Status Description Data Source(s) Unknown Male Problem MEDENT ([facility] ) Encounters Encounter Providers Location Date Indications Data Source(s ) Outpatient Attender: RICK Hand/[place]/Ivan/R eindl 03/24/2021 03:00:00 PM EDT [facility] Outpatient Attender: PASQUALE BREWER-SJP.RACHEL 12:00:00 AM EDT - 02/23/2021 07:57:20 AM EDT [facility] Outpatient Attender: RICK Hand/[place]/Ivan/R eindl 02/20/2021 08:00:00 AM EDT [facility] ([facility] Outpatient Referrer: PASQUALE LAWSON.RACHEL 12:00:00 AM EDT [facility] [place] [address] [facility] [address] 12/03/2020 12:00:00 AM EDT [facility] [place] [address] [facility] [address] 11/13/2020 12:00:00 AM EDT eCW1 ([facility]) Outpatient Referrer: PASQUALE LEECT-SOHAP.SYR 12:00:00 AM EDT [facility] [address] [facility] [address] 11/06/2020 12:00:00 AM EDT eCW1 ([facility]) Outpatient Attender: PASQUALE BREWER-SJP.RACHEL 03:10:04 PM EDT - 11/04/2020 04:32:54 PM EDT [facility] [place] [address] [facility] [address] 10/08/2020 12:00:00 AM EDT eCW1 ([facility]) [place] [address] [facility] [address] 09/17/2020 12:00:00 AM EDT eCW1 ([facility]) [place] [address] [facility] [address] 09/12/2020 12:00:00 AM EDT eCW1 ([facility]) [place] [address] [facility] [address] 09/05/2020 12:00:00 AM EDT eCW1 ([facility]) [place] [address] [facility] [address] 08/27/2020 12:00:00 AM EDT eCW1 ([facility]) [place] [address] [facility] [address] 08/26/2020 12:00:00 AM EDT eCW1 ([facility]) [place] [address] [facility] [address] 08/14/2020 12:00:00 AM EST eCW1 ([facility]) [place] [address] [facility] [address] 08/11/2020 12:00:00 AM EST eCW1 ([facility]) Outpatient Attender: PASQUALE BREWER-OSMAN 12:00:00 AM EST [facility] Unknown [address] [facility] [address] 08/07/2020 12:00:00 AM EST eCW1 ([facility]) [place] [address] [facility] [address] 08/01/2020 12:00:00 AM EST eCW1 ([facility]) [place] [address] [facility] [address] 08/01/2020 12:00:00 AM EST [facility] ([facility]) [place] [address] [facility] [address] 07/31/2020 12:00:00 AM EST eCW[facility] ([facility]) Outpatient Attender: ELEANOR ESPINOSA Physical Therapy 07/14 01:30:00 PM EST MED[facility] ([facility]) Outpatient Attender: Marla Hand/Roque/Ivan/Amanda read 07/22/2020 10:00:00 AM EST [facility] ([facility]) Outpatient Attender: ELEANOR ESPINOSA Physical Therapy 06/14 01:45:00 PM EST MED[facility] ([facility]) Outpatient Attender: PASQUALE BREWER-SJP.RACHEL 12:00:00 AM EST - 07/01/2020 11:21:21 AM EST [facility] [place] [address] [facility] [address] 06/12/2020 12:00:00 AM EST [facility] ([facility]) [place] [address] [facility] [address] 06/11/2020 12:00:00 AM EST [facility]CW[facility] ([facility]) [place] [address] [facility] [address] 06/09/2020 12:00:00 AM EST eCW1 ([facility]) Outpatient Attender: PASQUALE BREWER-SJP.RACHEL 12:00:00 AM EST - 06/03/2020 04:22:22 PM EST [facility] Out[place] [address] [facility] [address] 06/02/2020 12:00:00 AM EST eCW1 ([facility]) OFFICE OUTPATIENT VISIT 15 MINUTES Attender: ELEANOR ESPINOSA Ph ysical Therapy 05/28/2020 12:30:00 PM EST [facility] ([facility]) Outpatient Attender: PASQUALE BREWER-SJP.RACHEL 03/2020 12:00:00 AM EST - 05/22/2020 04:45:49 PM EST [facility] [place] [address] [facility] [address] 05/13/2020 12:00:00 AM EST eCW1 ([facility]) Outpatient Attender: Tata LEERACHEL-SJP.RACHEL 04/14 12:00:00 AM EST - 05/07/2020 03:53:02 PM EST [facility] OFFICE OUTPATIENT VISIT 15 MINUTES Attender: ELEANOR ESPINOSA Ph ysical Therapy 05/06/2020 02:45:00 PM EST [facility] ([facility]) [place] [address] [facility] [address] 05/01/2020 12:00:00 AM EST eCW1 ([facility]) Unknown [address] [facility] [address] 04/22/2020 12:00:00 AM EST eCW1 ([facility]) Unknown [address] [facility] [address] 04/21/2020 12:00:00 AM EST eCW1 ([facility]) [place] [address] [facility] [address] 04/21/2020 12:00:00 AM EST eCW1 ([facility]) [place] [address] [facility] [address] 04/10/2020 12:00:00 AM EDT eCW1 ([facility]) Unknown [address] [facility] [address] 04/09/2020 12:00:00 AM EDT eCW1 ([facility]) [place] [address] [facility] [address] 04/08/2020 12:00:00 AM EDT eCW1 ([facility]) [place] [address] [facility] [address] 04/05/2020 12:00:00 AM EDT [facility]) [place] [address] [facility] [address] 04/04/2020 12:00:00 AM EDT [facility]CW[facility] ([facility]) [place] [address] [facility] [address] 04/03/2020 12:00:00 AM EDT eCW[facility] ([facility]) [place] [address] [facility] [address] 03/27/2020 12:00:00 AM EDT eCW1 ([facility]) OFFICE OUTPATIENT VISIT 15 MINUTES Attender: ELEANOR ESPINOSA Ph ysical Therapy 03/25/2020 11:00:00 AM EDT [facility] ([facility]) Immunizations Vaccine Date Status Description Data Source(s) INFLUENZA VIRUS VACCINE QUADRIVALENT 2019- (6 MOS AN D UP) 02/28/2020 12:00:00 AM EDT completed [facility] Medication Brand Name Start Date Product Form Dose Route Admi nistrative Instructions Pharmacy Instructions Status Indications Reaction Description Data Source(s) 60 mcg (15 mcg x 4)/0.5 mL 03/21/2021 12:00:00 AM EDT suspen nasim 0 DIRECTED IN THE RIGHT ARM DIRECTED IN THE RIGHT ARM SOLD: 03/21/2021 [facility] 81 mg 03/04/2021 12:00:00 AM EDT tablet,delayed release (DR/EC) 30 TAKE ONE TABLET BY MOUTH EVERY DAY TAKE ONE TABLET BY MOUTH EVERY DAY SOLD: 03/04/2021 [facility] Lisinopril 20 MG Oral Tablet lisinopril (PRINIVIL,ZEST RIL) 20 MG tablet lisinopril (PRINIVIL,ZESTRIL) 20 MG tablet 02/23/2021 12:00:00 AM EDT 20 mg Oral active Take 1 tablet (20 mg total) by mouth daily [facility] Aspirin 81 MG Delayed Release Oral Table t SM Aspirin Adult Low Strength 81 MG EC tablet SM Aspirin Adult Low Strength 81 MG EC tablet 02/23/2021 12: 00:00 AM EDT 81 mg Oral active Take 1 tablet (8 1 mg total) by mouth daily [facility] 20 mg 02/23/2021 12:00:00 AM EDT tablet 30 TAKE ONE TABLET BY MOUTH EVERY DAY TAKE ONE TABLET BY MOUTH EVERY DAY SOLD: 03/04/2021 [facility] 40 mg 12/04/2020 12:00:00 AM EDT tablet 30 TAKE ONE TABLET BY MOUTH EVERY DAY TAKE ONE TABLET BY MOUTH EVERY DAY SOLD: 02/07/2021 [facility] 40 mg 12/04/2020 12:00:00 AM EDT tablet 30 TAKE ONE TABLET BY MOUTH EVERY DAY TAKE ONE TABLET BY MOUTH EVERY DAY SOLD: 12/11/2020 [facility] 40 mg 11/04/2020 12:00:00 AM EDT tablet 30 TAKE ONE TABLET BY MOUTH EVERY DAY TAKE ONE TABLET BY MOUTH EVERY DAY SOLD: 11/06/2020 [facility] Lisinopril 40 MG Oral Tablet lisinopril (PRINIVIL,ZEST RIL) 40 MG tablet lisinopril (PRINIVIL,ZESTRIL) 40 MG tablet 11/04/2020 12:00:00 AM EDT aborted TAKE ONE TABLET BY MOUTH EVERY D AY [facility] Rosuvastatin calcium 10 MG Oral Tablet ROSUVASTATIN CALCIUM 09/27/2020 12:00:00 AM EDT tablet 30 TAKE ONE TABLET BY MOUTH ESTHELA RY EVENING TAKE ONE TABLET BY MOUTH EVERY EVENING SOLD: 12/17/2020 [facility] Rosuvastatin calcium 10 MG Oral Tablet ROSUVASTATIN CALCIUM 09/27/2020 12:00:00 AM EDT tablet 30 TAKE ONE TABLET BY MOUTH ESTHELA RY EVENING TAKE ONE TABLET BY MOUTH EVERY EVENING SOLD: 02/07/2021 [facility] Rosuvastatin calcium 10 MG Oral Tablet ROSUVASTATIN CALCIUM 09/27/2020 12:00:00 AM EDT tablet 30 TAKE ONE TABLET BY MOUTH ESTHELA RY EVENING TAKE ONE TABLET BY MOUTH EVERY EVENING SOLD: 11/06/2020 [facility] Rosuvastatin calcium 10 MG Oral Tablet ROSUVASTATIN CALCIUM 09/27/2020 12:00:00 AM EDT tablet 30 TAKE ONE TABLET BY MOUTH ESTHELA RY EVENING TAKE ONE TABLET BY MOUTH EVERY EVENING SOLD: 09/30/2020 [facility] Rosuvastatin calcium 10 MG Oral Tablet rosuvastatin (C RESTOR) 10 MG tablet rosuvastatin (CRESTOR) 10 MG tablet 09/22/2020 12:00:00 AM EDT 10 mg Oral active Take 1 tablet (10 mg total) by m outh nightly [facility] 8.6-50 mg 09/06/2020 12:00:00 AM EDT tablet 30 TAKE ONE TABLET BY MOUTH EVERY EVENING NEEDED TAKE ONE TABLET BY MOUTH EVERY EVENING NEEDED SOLD: 09/06/2020 [facility] Docusate Sodium 50 MG / sennosides, CUSTODIAL 8.6 MG Oral Tablet [SENOKOT-S] Senokot S 8.6-50 MG Senokot S 8.6-50 MG 09/05/2020 12:00:00 AM EDT 1 .0 {tablet_in_the_evening_as_needed} active Senokot S 8.6-50 MG eCW1 ([facility]) Docusate Sodium 50 MG / sennosides, CUSTODIAL 8.6 MG Oral Tablet [SENOKOT-S] Senokot S 8.6-50 MG Senokot S 8.6-50 MG 09/05/2020 12:00:00 AM EDT 1 .0 {tablet_in_the_evening_as_needed} active Senokot S 8.6-50 MG eCW1 ([facility]) Docusate Sodium 50 MG / sennosides, CUSTODIAL 8.6 MG Oral Tablet [SENOKOT-S] Senokot S 8.6-50 MG Senokot S 8.6-50 MG 09/05/2020 12:00:00 AM EDT 1 .0 {tablet_in_the_evening_as_needed} active Senokot S 8.6-50 MG eCW1 ([facility]) Docusate Sodium 50 MG / sennosides, CUSTODIAL 8.6 MG Oral Tablet [SENOKOT-S] Senokot S 8.6-50 MG Senokot S 8.6-50 MG 09/05/2020 12:00:00 AM EDT 1 .0 {tablet_in_the_evening_as_needed} active Senokot S 8.6-50 MG eCW1 ([facility]) Docusate Sodium 50 MG / sennosides, CUSTODIAL 8.6 MG Oral Tablet [SENOKOT-S] Senokot S 8.6-50 MG Senokot S 8.6-50 MG 09/05/2020 12:00:00 AM EDT 1 .0 {tablet_in_the_evening_as_needed} active Senokot S 8.6-50 MG eCW1 ([facility]) Docusate Sodium 50 MG / sennosides, CUSTODIAL 8.6 MG Oral Tablet [SENOKOT-S] Senokot S 8.6-50 MG Senokot S 8.6-50 MG 09/05/2020 12:00:00 AM EDT 1 .0 {tablet_in_the_evening_as_needed} active Senokot S 8.6-50 MG eCW1 ([facility]) Docusate Sodium 50 MG / sennosides, CUSTODIAL 8.6 MG Oral Tablet [SENOKOT-S] Senokot S 8.6-50 MG Senokot S 8.6-50 MG 09/05/2020 12:00:00 AM EDT 1 .0 {tablet_in_the_evening_as_needed} active Senokot S 8.6-50 MG eCW1 ([facility]) Rosuvastatin calcium 10 MG Oral Tablet rosuvastatin (C RESTOR) 10 MG tablet rosuvastatin (CRESTOR) 10 MG tablet 09/01/2020 12:00:00 AM EDT 10 mg Oral aborted Take 1 tablet (10 mg total) by m outh nightly [facility] Rosuvastatin calcium 10 MG Oral Tablet ROSUVASTATIN CALCIUM 09/01/2020 12:00:00 AM EDT tablet 30 TAKE ONE TABLET BY MOUTH NIG HTLY TAKE ONE TABLET BY MOUTH NIGHTLY SOLD: 09/01/2020 [facility] Cephalexin 500 MG Oral Capsule Cephalexin 500 MG 08/11/2020 12:00:00 AM EST active Cephalexin 500 MG eC W1 ([facility]) Cephalexin 500 MG Oral Capsule Cephalexin 500 MG 08/11/2020 12:00:00 AM EST suspended Cephalexin 500 MG eC W1 ([facility]) Cephalexin 500 MG Oral Capsule Cephalexin 500 MG 08/11/2020 12:00:00 AM EST active Cephalexin 500 MG eC W1 ([facility]) Cephalexin 500 MG Oral Capsule Cephalexin 500 MG 08/11/2020 12:00:00 AM EST suspended Cephalexin 500 MG eC W1 ([facility]) Cephalexin 500 MG Oral Capsule Cephalexin 500 MG 08/11/2020 12:00:00 AM EST suspended Cephalexin 500 MG eC W1 ([facility]) Cephalexin 500 MG Oral Capsule Cephalexin 500 MG 08/11/2020 12:00:00 AM EST active Cephalexin 500 MG eC W1 ([facility]) Cephalexin 500 MG Oral Capsule Cephalexin 500 MG 08/11/2020 12:00:00 AM EST suspended Cephalexin 500 MG eC W1 ([facility]) Cephalexin 500 MG Oral Capsule Cephalexin 500 MG 08/11/2020 12:00:00 AM EST suspended Cephalexin 500 MG eC W1 ([facility]) Cephalexin 500 MG Oral Capsule CEPHALEXIN 08/11/2020 12:00:00 AM EST capsule 1 TAKE ONE CAPSULE BY MOUTH ONE HOUR PRIOR TO CYSTOSCOPY TAKE ONE CAPSULE BY MOUTH ONE HOUR PRIOR TO CYSTOSCOPY SOLD: 08/11/2020 [facility] Cephalexin 500 MG Oral Capsule Cephalexin 500 MG 08/11/2020 12:00:00 AM EST suspended Cephalexin 500 MG eC W1 ([facility]) Cephalexin 500 MG Oral Capsule Cephalexin 500 MG 08/11/2020 12:00:00 AM EST suspended Cephalexin 500 MG eC W1 ([facility]) Cephalexin 500 MG Oral Capsule Cephalexin 500 MG 08/11/2020 12:00:00 AM EST active Cephalexin 500 MG eC W1 ([facility]) Cephalexin 500 MG Oral Capsule Cephalexin 500 MG 08/11/2020 12:00:00 AM EST active Cephalexin 500 MG eC W1 ([facility]) 25 mg 08/08/2020 12:00:00 AM EST tablet 30 TAKE ONE TABLET BY MOUTH EVERY DAY TAKE ONE TABLET BY MOUTH EVERY DAY SOLD: 08/11/2020 [facility] Hydrochlorothiazide 25 MG Oral Tablet hy drochlorothiazide (HYDRODIURIL) 25 MG tablet hydrochlorothiazide (HYDRODIURIL) 25 MG tablet 12:00:00 AM EST 25 mg Oral active Take 1 tablet (25 mg total) by mouth daily [facility] 81 mg 08/01/2020 12:00:00 AM EST tablet,delayed release (DR/EC) 30 TAKE ONE TABLET BY MOUTH EVERY DAY TAKE ONE TABLET BY MOUTH EVERY DAY SOLD: 11/06/2020 [facility] 81 mg 08/01/2020 12:00:00 AM EST tablet,delayed release (DR/EC) 30 TAKE ONE TABLET BY MOUTH EVERY DAY TAKE ONE TABLET BY MOUTH EVERY DAY SOLD: 08/03/2020 [facility] 81 mg 08/01/2020 12:00:00 AM EST tablet,delayed release (DR/EC) 30 TAKE ONE TABLET BY MOUTH EVERY DAY TAKE ONE TABLET BY MOUTH EVERY DAY SOLD: 02/07/2021 [facility] 81 mg 08/01/2020 12:00:00 AM EST tablet,delayed release (DR/EC) 30 TAKE ONE TABLET BY MOUTH EVERY DAY TAKE ONE TABLET BY MOUTH EVERY DAY SOLD: 12/23/2020 [facility] Rosuvastatin calcium 10 MG Oral Tablet rosuvastatin (C RESTOR) 10 MG tablet rosuvastatin (CRESTOR) 10 MG tablet 07/01/2020 12:00:00 AM EST 10 mg Oral active Take 1 tablet (10 mg total) by m outh nightly [facility] Rosuvastatin calcium 10 MG Oral Tablet ROSUVASTATIN CALCIUM 07/01/2020 12:00:00 AM EST tablet 30 TAKE ONE TABLET BY MOUTH NIG HTLY TAKE ONE TABLET BY MOUTH NIGHTLY SOLD: 07/04/2020 [facility] Rosuvastatin calcium 10 MG Oral Tablet ROSUVASTATIN CALCIUM 07/01/2020 12:00:00 AM EST tablet 30 TAKE ONE TABLET BY MOUTH NIG HTLY TAKE ONE TABLET BY MOUTH NIGHTLY SOLD: 08/03/2020 [facility] 1.4 % 06/18/2020 12:00:00 AM EST drops 15 INSTILL ONE DROP IN EACH EYE NEEDED INSTILL ONE DROP IN EACH EYE NEEDED SOLD: 06/23/2020 [facility] Polyvinyl Alcohol 0.014 ML/ML Ophthalmic Solution ARTIFICIAL TEARS 1.4 % ophthalmic solution ARTIFICIAL TEARS 1.4 % ophthalmic solution 06/17/2020 12:00:00 AM EST active [facility] Lidocaine 5 % Lidocaine 5 % 06/12/2020 12:00:00 AM EST suspended Lidocaine 5 % eCW1 ([facility]) Lidocaine 5 % Lidocaine 5 % 06/12/2020 12:00:00 AM EST suspended Lidocaine 5 % eCW1 ([facility]) Lidocaine 5 % Lidocaine 5 % 06/12/2020 12:00:00 AM EST suspended Lidocaine 5 % eCW1 ([facility]) Lidocaine 5 % Lidocaine 5 % 06/12/2020 12:00:00 AM EST suspended Lidocaine 5 % eCW1 ([facility]) Lidocaine 5 % Lidocaine 5 % 06/12/2020 12:00:00 AM EST suspended Lidocaine 5 % eCW1 ([facility]) Lidocaine 5 % Lidocaine 5 % 06/12/2020 12:00:00 AM EST active Lidocaine 5 % eCW1 ([facility]) Lidocaine 5 % Lidocaine 5 % 06/12/2020 12:00:00 AM EST suspended Lidocaine 5 % eCW1 ([facility]) Lidocaine 5 % Lidocaine 5 % 06/12/2020 12:00:00 AM EST suspended Lidocaine 5 % eCW1 ([facility]) Lidocaine 5 % Lidocaine 5 % 06/12/2020 12:00:00 AM EST suspended Lidocaine 5 % eCW1 ([facility]) Lidocaine 5 % Lidocaine 5 % 06/12/2020 12:00:00 AM EST suspended Lidocaine 5 % eCW1 ([facility]) Lidocaine 5 % Lidocaine 5 % 06/12/2020 12:00:00 AM EST suspended Lidocaine 5 % eCW1 ([facility]) Lidocaine 5 % Lidocaine 5 % 06/12/2020 12:00:00 AM EST suspended Lidocaine 5 % eCW1 ([facility]) Lidocaine 5 % Lidocaine 5 % 06/12/2020 12:00:00 AM EST suspended Lidocaine 5 % eCW1 ([facility]) Lidocaine 5 % Lidocaine 5 % 06/12/2020 12:00:00 AM EST suspended Lidocaine 5 % eCW1 ([facility]) Lidocaine 5 % Lidocaine 5 % 06/12/2020 12:00:00 AM EST active Lidocaine 5 % eCW1 ([facility]) Lidocaine 5 % Lidocaine 5 % 06/12/2020 12:00:00 AM EST suspended Lidocaine 5 % eCW1 ([facility]) Lidocaine 5 % Lidocaine 5 % 06/12/2020 12:00:00 AM EST active Lidocaine 5 % eCW1 ([facility]) Lidocaine 5 % Lidocaine 5 % 06/12/2020 12:00:00 AM EST suspended Lidocaine 5 % eCW1 ([facility]) Lidocaine 5 % Lidocaine 5 % 06/12/2020 12:00:00 AM EST suspended Lidocaine 5 % eCW1 ([facility]) Lidocaine 5 % Lidocaine 5 % 06/12/2020 12:00:00 AM EST active Lidocaine 5 % eCW1 ([facility]) Rosuvastatin calcium 10 MG Oral Tablet rosuvastatin (C RESTOR) 10 MG tablet rosuvastatin (CRESTOR) 10 MG tablet 06/03/2020 12:00:00 AM EST 10 mg Oral aborted Take 1 tablet (10 mg total) by m outh nightly [facility] 10 mg 06/03/2020 12:00:00 AM EST tablet 30 TAKE ONE TABLET BY MOUTH EVERY EVENING TAKE ONE TABLET BY MOUTH EVERY EVENING SOLD: 06/05/2020 [facility] 40 mg 05/23/2020 12:00:00 AM EST tablet 30 TAKE ONE TABLET BY MOUTH EVERY DAY TAKE ONE TABLET BY MOUTH EVERY DAY SOLD: 09/01/2020 [facility] 40 mg 05/23/2020 12:00:00 AM EST tablet 30 TAKE ONE TABLET BY MOUTH EVERY DAY TAKE ONE TABLET BY MOUTH EVERY DAY SOLD: 06/05/2020 [facility] Lisinopril 40 MG Oral Tablet lisinopril (PRINIVIL,ZEST RIL) 40 MG tablet lisinopril (PRINIVIL,ZESTRIL) 40 MG tablet 05/22/2020 12:00:00 AM EST 40 mg Oral active Take 1 tablet (40 mg total) by mouth daily [facility] 24 HR Diltiazem Hydrochloride 180 MG Ext ended Release Oral Capsule diltiazem (CARDIZEM CD) 180 MG 24 hr capsule diltiazem (CARDIZEM CD) 180 MG 24 hr capsule 05/22/2020 12:00:00 AM EST 180 mg Oral active Take 1 capsule (180 mg total) by mouth daily [facility] Lisinopril 30 MG Oral Tablet Lisinopril 30 MG 05/13/2020 12:00:00 A M EST 1.0 {tablet} suspended Lisinopril 30 MG eCW1 ([facility]) Lisinopril 30 MG Oral Tablet Lisinopril 30 MG 05/13/2020 12:00:00 A M EST 1.0 {tablet} active Lisinopril 30 MG eCW1 ( [facility]) Lisinopril 30 MG Oral Tablet Lisinopril 30 MG 05/13/2020 12:00:00 A M EST 1.0 {tablet} suspended Lisinopril 30 MG eCW1 ([facility]) Lisinopril 30 MG Oral Tablet Lisinopril 30 MG 05/13/2020 12:00:00 A M EST 1.0 {tablet} suspended Lisinopril 30 MG eCW1 ([facility]) Lisinopril 30 MG Oral Tablet Lisinopril 30 MG 05/13/2020 12:00:00 A M EST 1.0 {tablet} suspended Lisinopril 30 MG eCW1 ([facility]) Lisinopril 30 MG Oral Tablet Lisinopril 30 MG 05/13/2020 12:00:00 A M EST 1.0 {tablet} active Lisinopril 30 MG eCW1 ( [facility]) Lisinopril 30 MG Oral Tablet Lisinopril 30 MG 05/13/2020 12:00:00 A M EST 1.0 {tablet} suspended Lisinopril 30 MG eCW1 ([facility]) Lisinopril 30 MG Oral Tablet Lisinopril 30 MG 05/13/2020 12:00:00 A M EST 1.0 {tablet} active Lisinopril 30 MG eCW1 ( [facility]) Lisinopril 30 MG Oral Tablet Lisinopril 30 MG 05/13/2020 12:00:00 A M EST 1.0 {tablet} suspended Lisinopril 30 MG eCW1 ([facility]) Lisinopril 30 MG Oral Tablet Lisinopril 30 MG 05/13/2020 12:00:00 A M EST 1.0 {tablet} active Lisinopril 30 MG eCW1 ( [facility]) Lisinopril 30 MG Oral Tablet Lisinopril 30 MG 05/13/2020 12:00:00 A M EST 1.0 {tablet} suspended Lisinopril 30 MG eCW1 ([facility]) Lisinopril 30 MG Oral Tablet Lisinopril 30 MG 05/13/2020 12:00:00 A M EST 1.0 {tablet} suspended Lisinopril 30 MG eCW1 ([facility]) Lisinopril 30 MG Oral Tablet Lisinopril 30 MG 05/13/2020 12:00:00 A M EST 1.0 {tablet} suspended Lisinopril 30 MG eCW1 ([facility]) Lisinopril 30 MG Oral Tablet Lisinopril 30 MG 05/13/2020 12:00:00 A M EST 1.0 {tablet} active Lisinopril 30 MG eCW1 ( [facility]) Lisinopril 30 MG Oral Tablet Lisinopril 30 MG 05/13/2020 12:00:00 A M EST 1.0 {tablet} suspended Lisinopril 30 MG eCW1 ([facility]) Lisinopril 30 MG Oral Tablet Lisinopril 30 MG 05/13/2020 12:00:00 A M EST 1.0 {tablet} suspended Lisinopril 30 MG eCW1 ([facility]) Lisinopril 30 MG Oral Tablet Lisinopril 30 MG 05/13/2020 12:00:00 A M EST 1.0 {tablet} suspended Lisinopril 30 MG eCW1 ([facility]) Lisinopril 30 MG Oral Tablet Lisinopril 30 MG 05/13/2020 12:00:00 A M EST 1.0 {tablet} suspended Lisinopril 30 MG eCW1 ([facility]) Lisinopril 30 MG Oral Tablet Lisinopril 30 MG 05/13/2020 12:00:00 A M EST 1.0 {tablet} suspended Lisinopril 30 MG eCW1 ([facility]) Lisinopril 30 MG Oral Tablet Lisinopril 30 MG 05/13/2020 12:00:00 A M EST 1.0 {tablet} suspended Lisinopril 30 MG eCW1 ([facility]) Lisinopril 30 MG Oral Tablet Lisinopril 30 MG 05/13/2020 12:00:00 A M EST 1.0 {tablet} suspended Lisinopril 30 MG eCW1 ([facility]) 24 HR Diltiazem Hydrochloride 180 MG Extended Release Oral Capsule DILTIAZEM HCL 05/09/2020 12:00:00 AM EST capsule,extended release 24hr 30 TAKE ONE CAPSULE BY MOUTH EVERY DAY TAKE ONE CAPSULE BY MOUTH EVERY DAY SOLD: 05/12/2020 [facility] 24 HR Diltiazem Hydrochloride 180 MG Ext ended Release Oral Capsule diltiazem (CARDIZEM CD) 180 MG 24 hr capsule diltiazem (CARDIZEM CD) 180 MG 24 hr capsule 05/07/2020 12:00:00 AM EST 180 mg Oral aborted Take 1 capsule (180 mg total) by mouth daily [facility] 20 mg 05/02/2020 12:00:00 AM EST tablet 30 TAKE ONE TABLET BY MOUTH EVERY DAY TAKE ONE TABLET BY MOUTH EVERY DAY SOLD: 05/06/2020 [facility] atorvastatin 40 MG Oral Tablet ATORVASTATIN CALCIUM 05/02/2020 1 2:00:00 AM EST tablet 30 TAKE ONE TABLET BY MOUTH EVERY D AY TAKE ONE TABLET BY MOUTH EVERY DAY SOLD: 05/06/2020 [facility] atorvastatin 40 MG Oral Tablet Atorvastatin Calcium 40 MG Atorvastatin Calcium 40 MG 05/01/2020 12:00:00 AM EST 1.0 {tablet} activ e Atorvastatin Calcium 40 MG eCW1 ([facility]) atorvastatin 40 MG Oral Tablet Atorvastatin Calcium 40 MG Atorvastatin Calcium 40 MG 05/01/2020 12:00:00 AM EST 1.0 {tablet} activ e Atorvastatin Calcium 40 MG eCW1 ([facility]) atorvastatin 40 MG Oral Tablet Atorvastatin Calcium 40 MG Atorvastatin Calcium 40 MG 05/01/2020 12:00:00 AM EST 1.0 {tablet} activ e Atorvastatin Calcium 40 MG eCW1 ([facility]) atorvastatin 40 MG Oral Tablet Atorvastatin Calcium 40 MG Atorvastatin Calcium 40 MG 05/01/2020 12:00:00 AM EST 1.0 {tablet} activ e Atorvastatin Calcium 40 MG eCW1 ([facility]) atorvastatin 40 MG Oral Tablet Atorvastatin Calcium 40 MG Atorvastatin Calcium 40 MG 05/01/2020 12:00:00 AM EST 1.0 {tablet} activ e Atorvastatin Calcium 40 MG eCW1 ([facility]) atorvastatin 40 MG Oral Tablet Atorvastatin Calcium 40 MG Atorvastatin Calcium 40 MG 05/01/2020 12:00:00 AM EST 1.0 {tablet} activ e Atorvastatin Calcium 40 MG eCW1 ([facility]) atorvastatin 40 MG Oral Tablet Atorvastatin Calcium 40 MG Atorvastatin Calcium 40 MG 05/01/2020 12:00:00 AM EST 1.0 {tablet} activ e Atorvastatin Calcium 40 MG eCW1 ([facility]) atorvastatin 40 MG Oral Tablet Atorvastatin Calcium 40 MG Atorvastatin Calcium 40 MG 05/01/2020 12:00:00 AM EST 1.0 {tablet} activ e Atorvastatin Calcium 40 MG eCW1 ([facility]) atorvastatin 40 MG Oral Tablet Atorvastatin Calcium 40 MG Atorvastatin Calcium 40 MG 05/01/2020 12:00:00 AM EST 1.0 {tablet} activ e Atorvastatin Calcium 40 MG eCW1 ([facility]) atorvastatin 40 MG Oral Tablet Atorvastatin Calcium 40 MG Atorvastatin Calcium 40 MG 05/01/2020 12:00:00 AM EST 1.0 {tablet} activ e Atorvastatin Calcium 40 MG eCW1 ([facility]) atorvastatin 40 MG Oral Tablet Atorvastatin Calcium 40 MG Atorvastatin Calcium 40 MG 05/01/2020 12:00:00 AM EST 1.0 {tablet} activ e Atorvastatin Calcium 40 MG eCW1 ([facility]) Lisinopril 20 MG Oral Tablet Lisinopril 20 MG 05/01/2020 12:00:00 A M EST 1.0 {tablet} active Lisinopril 20 MG eCW1 ( [facility]) atorvastatin 40 MG Oral Tablet Atorvastatin Calcium 40 MG Atorvastatin Calcium 40 MG 05/01/2020 12:00:00 AM EST 1.0 {tablet} activ e Atorvastatin Calcium 40 MG eCW1 ([facility]) atorvastatin 40 MG Oral Tablet Atorvastatin Calcium 40 MG Atorvastatin Calcium 40 MG 05/01/2020 12:00:00 AM EST 1.0 {tablet} activ e Atorvastatin Calcium 40 MG eCW1 ([facility]) atorvastatin 40 MG Oral Tablet Atorvastatin Calcium 40 MG Atorvastatin Calcium 40 MG 05/01/2020 12:00:00 AM EST 1.0 {tablet} activ e Atorvastatin Calcium 40 MG eCW1 ([facility]) atorvastatin 40 MG Oral Tablet Atorvastatin Calcium 40 MG Atorvastatin Calcium 40 MG 05/01/2020 12:00:00 AM EST 1.0 {tablet} activ e Atorvastatin Calcium 40 MG eCW1 ([facility]) atorvastatin 40 MG Oral Tablet Atorvastatin Calcium 40 MG Atorvastatin Calcium 40 MG 05/01/2020 12:00:00 AM EST 1.0 {tablet} activ e Atorvastatin Calcium 40 MG eCW1 ([facility]) atorvastatin 40 MG Oral Tablet Atorvastatin Calcium 40 MG Atorvastatin Calcium 40 MG 05/01/2020 12:00:00 AM EST 1.0 {tablet} activ e Atorvastatin Calcium 40 MG eCW1 ([facility]) atorvastatin 40 MG Oral Tablet Atorvastatin Calcium 40 MG Atorvastatin Calcium 40 MG 05/01/2020 12:00:00 AM EST 1.0 {tablet} activ e Atorvastatin Calcium 40 MG eCW1 ([facility]) atorvastatin 40 MG Oral Tablet Atorvastatin Calcium 40 MG Atorvastatin Calcium 40 MG 05/01/2020 12:00:00 AM EST 1.0 {tablet} activ e Atorvastatin Calcium 40 MG eCW1 ([facility]) Lisinopril 20 MG Oral Tablet Lisinopril 20 MG 05/01/2020 12:00:00 A M EST 1.0 {tablet} active Lisinopril 20 MG eCW1 ( [facility]) atorvastatin 40 MG Oral Tablet Atorvastatin Calcium 40 MG Atorvastatin Calcium 40 MG 05/01/2020 12:00:00 AM EST 1.0 {tablet} activ e Atorvastatin Calcium 40 MG eCW1 ([facility]) atorvastatin 40 MG Oral Tablet Atorvastatin Calcium 40 MG Atorvastatin Calcium 40 MG 05/01/2020 12:00:00 AM EST 1.0 {tablet} activ e Atorvastatin Calcium 40 MG eCW1 ([facility]) atorvastatin 40 MG Oral Tablet Atorvastatin Calcium 40 MG Atorvastatin Calcium 40 MG 05/01/2020 12:00:00 AM EST 1.0 {tablet} activ e Atorvastatin Calcium 40 MG eCW1 ([facility]) atorvastatin 40 MG Oral Tablet Atorvastatin Calcium 40 MG Atorvastatin Calcium 40 MG 05/01/2020 12:00:00 AM EST 1.0 {tablet} activ e Atorvastatin Calcium 40 MG eCW1 ([facility]) 20 mg 04/23/2020 12:00:00 AM EST tablet 8 TAKE ONE TABLET BY MOUTH TWICE A DAY TAKE ONE TABLET BY MOUTH TWICE A DAY SOLD: 04/23/2020 [facility] 500 mg 04/23/2020 12:00:00 AM EST tablet 15 TAKE ONE TABLET BY MOUTH THREE TIMES A DAY NEEDED FOR BACK PAIN TAKE ONE TABLET BY MOUTH THREE TIMES A D AY NEEDED FOR BACK PAIN SOLD: 04/23/2020 [facility] Lisinopril 10 MG Oral Tablet lisinopril (PRINIVIL,ZEST RIL) 10 MG tablet lisinopril (PRINIVIL,ZESTRIL) 10 MG tablet 04/22/2020 12:00:00 AM EST 10 mg Oral aborted Take 10 mg by mouth daily [facility] 10 mg 04/22/2020 12:00:00 AM EST tablet 30 TAKE ONE TABLET BY MOUTH EVERY DAY TAKE ONE TABLET BY MOUTH EVERY DAY SOLD: 04/23/2020 [facility] Isosorbide Dinitrate 30 MG Oral Tablet Isosorbide Dinitrate 30 MG 04/21/2020 12:00:00 AM EST 1.0 {tablet} active Is osorbide Dinitrate 30 MG eCW1 ([facility]) Isosorbide Dinitrate 30 MG Oral Tablet Isosorbide Dinitrate 30 MG 04/21/2020 12:00:00 AM EST 1.0 {tablet} active Is osorbide Dinitrate 30 MG eCW1 ([facility]) Lisinopril 10 MG Oral Tablet Lisinopril 10 MG 04/21/2020 12:00:00 A M EST 1.0 {tablet} active Lisinopril 10 MG eCW1 ( [facility]) Isosorbide Dinitrate 30 MG Oral Tablet Isosorbide Dinitrate 30 MG 04/21/2020 12:00:00 AM EST 1.0 {tablet} active Is osorbide Dinitrate 30 MG eCW1 ([facility]) Isosorbide Dinitrate 30 MG Oral Tablet Isosorbide Dinitrate 30 MG 04/21/2020 12:00:00 AM EST 1.0 {tablet} active Is osorbide Dinitrate 30 MG eCW1 ([facility]) Isosorbide Dinitrate 30 MG Oral Tablet Isosorbide Dinitrate 30 MG 04/21/2020 12:00:00 AM EST 1.0 {tablet} active Is osorbide Dinitrate 30 MG eCW1 ([facility]) Isosorbide Dinitrate 30 MG Oral Tablet Isosorbide Dinitrate 30 MG 04/21/2020 12:00:00 AM EST 1.0 {tablet} active Is osorbide Dinitrate 30 MG eCW1 ([facility]) Isosorbide Dinitrate 30 MG Oral Tablet Isosorbide Dinitrate 30 MG 04/21/2020 12:00:00 AM EST 1.0 {tablet} active Is osorbide Dinitrate 30 MG eCW1 ([facility]) Isosorbide Dinitrate 30 MG Oral Tablet Isosorbide Dinitrate 30 MG 04/21/2020 12:00:00 AM EST 1.0 {tablet} active Is osorbide Dinitrate 30 MG eCW1 ([facility]) Isosorbide Dinitrate 30 MG Oral Tablet Isosorbide Dinitrate 30 MG 04/21/2020 12:00:00 AM EST 1.0 {tablet} active Is osorbide Dinitrate 30 MG eCW1 ([facility]) Isosorbide Dinitrate 30 MG Oral Tablet Isosorbide Dinitrate 30 MG 04/21/2020 12:00:00 AM EST 1.0 {tablet} active Is osorbide Dinitrate 30 MG eCW1 ([facility]) Isosorbide Dinitrate 30 MG Oral Tablet Isosorbide Dinitrate 30 MG 04/21/2020 12:00:00 AM EST 1.0 {tablet} active Is osorbide Dinitrate 30 MG eCW1 ([facility]) Isosorbide Dinitrate 30 MG Oral Tablet Isosorbide Dinitrate 30 MG 04/21/2020 12:00:00 AM EST 1.0 {tablet} active Is osorbide Dinitrate 30 MG eCW1 ([facility]) Isosorbide Dinitrate 30 MG Oral Tablet Isosorbide Dinitrate 30 MG 04/21/2020 12:00:00 AM EST 1.0 {tablet} active Is osorbide Dinitrate 30 MG eCW1 ([facility]) Isosorbide Dinitrate 30 MG Oral Tablet Isosorbide Dinitrate 30 MG 04/21/2020 12:00:00 AM EST 1.0 {tablet} active Is osorbide Dinitrate 30 MG eCW1 ([facility]) Isosorbide Dinitrate 30 MG Oral Tablet Isosorbide Dinitrate 30 MG 04/21/2020 12:00:00 AM EST 1.0 {tablet} active Is osorbide Dinitrate 30 MG eCW1 ([facility]) Isosorbide Dinitrate 30 MG Oral Tablet Isosorbide Dinitrate 30 MG 04/21/2020 12:00:00 AM EST 1.0 {tablet} active Is osorbide Dinitrate 30 MG eCW1 ([facility]) Isosorbide Dinitrate 30 MG Oral Tablet Isosorbide Dinitrate 30 MG 04/21/2020 12:00:00 AM EST 1.0 {tablet} active Is osorbide Dinitrate 30 MG eCW1 ([facility]) Isosorbide Dinitrate 30 MG Oral Tablet Isosorbide Dinitrate 30 MG 04/21/2020 12:00:00 AM EST 1.0 {tablet} active Is osorbide Dinitrate 30 MG eCW1 ([facility]) Isosorbide Dinitrate 30 MG Oral Tablet Isosorbide Dinitrate 30 MG 04/21/2020 12:00:00 AM EST 1.0 {tablet} active Is osorbide Dinitrate 30 MG eCW1 ([facility]) Isosorbide Dinitrate 30 MG Oral Tablet Isosorbide Dinitrate 30 MG 04/21/2020 12:00:00 AM EST 1.0 {tablet} active Is osorbide Dinitrate 30 MG eCW1 ([facility]) Isosorbide Dinitrate 30 MG Oral Tablet Isosorbide Dinitrate 30 MG 04/21/2020 12:00:00 AM EST 1.0 {tablet} active Is osorbide Dinitrate 30 MG eCW1 ([facility]) Isosorbide Dinitrate 30 MG Oral Tablet Isosorbide Dinitrate 30 MG 04/21/2020 12:00:00 AM EST 1.0 {tablet} active Is osorbide Dinitrate 30 MG eCW1 ([facility]) Isosorbide Dinitrate 30 MG Oral Tablet Isosorbide Dinitrate 30 MG 04/21/2020 12:00:00 AM EST 1.0 {tablet} active Is osorbide Dinitrate 30 MG eCW1 ([facility]) Isosorbide Dinitrate 30 MG Oral Tablet Isosorbide Dinitrate 30 MG 04/21/2020 12:00:00 AM EST 1.0 {tablet} active Is osorbide Dinitrate 30 MG eCW1 ([facility]) Isosorbide Dinitrate 30 MG Oral Tablet Isosorbide Dinitrate 30 MG 04/21/2020 12:00:00 AM EST 1.0 {tablet} active Is osorbide Dinitrate 30 MG eCW1 ([facility]) Lisinopril 10 MG Oral Tablet Lisinopril 10 MG 04/21/2020 12:00:00 A M EST 1.0 {tablet} active Lisinopril 10 MG eCW1 ( [facility]) 30 mg 04/09/2020 12:00:00 AM EDT tablet 60 TAKE ONE TABLET BY MOUTH TWICE A DAY TAKE ONE TABLET BY MOUTH TWICE A DAY SOLD: 04/11/2020 [facility] Nitroglycerin 0.3 MG Sublingual Tablet NITROGLYCERIN 0 12:00:00 AM EDT tablet, sublingual 100 TAKE ONE TABLET UNDE R THE TONGUE WHEN CHEST PAIN DOES NOT IMPROVE IN 3 MINUTES AND CAN USE SECOND DOSE IF PAIN DOES NOT RESOLVE WITH ONE TAKE ONE TABLET UNDER THE TONGUE WHEN CH EST PAIN DOES NOT IMPROVE IN 3 MINUTES AND CAN USE SECOND DOSE IF PAIN DOES NOT RESOLVE WITH ONE SOLD: 04/11/2020 [facility] Hydrochlorothiazide 25 MG Oral Tablet hy drochlorothiazide (HYDRODIURIL) 25 MG tablet hydrochlorothiazide (HYDRODIURIL) 25 MG tablet 020 12:00:00 AM EDT 25 mg Oral aborted Take 25 mg by [facility] Aspirin 81 MG Delayed Release Oral Table t SM ASPIRIN ADULT LOW STRENGTH 81 MG EC tablet SM ASPIRIN ADULT LOW STRENGTH 81 MG EC tablet 04/09/2020 12: 00:00 AM EDT 81 mg Oral aborted Take 81 mg by [facility] daily [facility] Nitroglycerin 0.3 MG Sublingual Tablet n itroglycerin (NITROSTAT) 0.3 MG SL tablet nitroglycerin (NITROSTAT) 0.3 MG SL tablet 04/09/2020 12:00:00 A M EDT active TAKE ONE T ABLET UNDER THE TONGUE WHEN CHEST PAIN DOES NOT IMPROVE IN 3 MINUTES AND CAN USE SECOND DOSE IF PAIN DOES NOT RESOLVE WITH ONE [facility] 25 mg 04/09/2020 12:00:00 AM EDT tablet 30 TAKE ONE TABLET BY MOUTH EVERY MORNING TAKE ONE TABLET BY MOUTH EVERY MORNING SOLD: 04/11/2020 [facility] 81 mg 04/09/2020 12:00:00 AM EDT tablet,delayed release (DR/EC) 30 TAKE ONE TABLET BY MOUTH EVERY DAY TAKE ONE TABLET BY MOUTH EVERY DAY SOLD: 04/11/2020 [facility] Clonidine Hydrochloride 0.1 MG Oral Tablet CLONIDINE HCL 04/09/2020 12:00:00 AM EDT tablet 30 TAKE ONE TABLET BY MOUTH ESTHELA DAY TAKE ONE TABLET BY MOUTH EVERY DAY SOLD: 04/11/2020 [facility] Nitroglycerin 0.3 MG Sublingual Tablet Nitroglycerin 0.3 MG 04/08/2020 12:00:00 AM EDT active Nitroglycerin 0.3 MG eCW1 ([facility]) Nitroglycerin 0.3 MG Sublingual Tablet Nitroglycerin 0.3 MG 04/08/2020 12:00:00 AM EDT active Nitroglycerin 0.3 MG eCW1 ([facility]) Nitroglycerin 0.3 MG Sublingual Tablet Nitroglycerin 0.3 MG 04/08/2020 12:00:00 AM EDT active Nitroglycerin 0.3 MG eCW1 ([facility]) Nitroglycerin 0.3 MG Sublingual Tablet Nitroglycerin 0.3 MG 04/08/2020 12:00:00 AM EDT active Nitroglycerin 0.3 MG eCW1 ([facility]) Nitroglycerin 0.3 MG Sublingual Tablet Nitroglycerin 0.3 MG 04/08/2020 12:00:00 AM EDT active Nitroglycerin 0.3 MG eCW1 ([facility]) Nitroglycerin 0.3 MG Sublingual Tablet Nitroglycerin 0.3 MG 04/08/2020 12:00:00 AM EDT active Nitroglycerin 0.3 MG eCW1 ([facility]) Nitroglycerin 0.3 MG Sublingual Tablet Nitroglycerin 0.3 MG 04/08/2020 12:00:00 AM EDT active Nitroglycerin 0.3 MG eCW1 ([facility]) Nitroglycerin 0.3 MG Sublingual Tablet Nitroglycerin 0.3 MG 04/08/2020 12:00:00 AM EDT active Nitroglycerin 0.3 MG eCW1 ([facility]) atorvastatin 80 MG Oral Tablet ATORVASTATIN CALCIUM 04/08/2020 1 2:00:00 AM EDT tablet 30 TAKE ONE TABLET BY MOUTH EVERY D AY TAKE ONE TABLET BY MOUTH EVERY DAY SOLD: 04/11/2020 [facility] Nitroglycerin 0.3 MG Sublingual Tablet Nitroglycerin 0.3 MG 04/08/2020 12:00:00 AM EDT active Nitroglycerin 0.3 MG eCW1 ([facility]) Nitroglycerin 0.3 MG Sublingual Tablet Nitroglycerin 0.3 MG 04/08/2020 12:00:00 AM EDT active Nitroglycerin 0.3 MG eCW1 ([facility]) Nitroglycerin 0.3 MG Sublingual Tablet Nitroglycerin 0.3 MG 04/08/2020 12:00:00 AM EDT active Nitroglycerin 0.3 MG eCW1 ([facility]) Nitroglycerin 0.3 MG Sublingual Tablet Nitroglycerin 0.3 MG 04/08/2020 12:00:00 AM EDT active Nitroglycerin 0.3 MG eCW1 ([facility]) Nitroglycerin 0.3 MG Sublingual Tablet Nitroglycerin 0.3 MG 04/08/2020 12:00:00 AM EDT active Nitroglycerin 0.3 MG eCW1 ([facility]) Nitroglycerin 0.3 MG Sublingual Tablet Nitroglycerin 0.3 MG 04/08/2020 12:00:00 AM EDT active Nitroglycerin 0.3 MG eCW1 ([facility]) atorvastatin 40 MG Oral Tablet atorvastatin (LIPITOR) 40 MG tablet atorvastatin (LIPITOR) 40 MG tablet 04/08/2020 12:00:00 AM EDT 40 mg Oral aborted Take 40 mg by mouth daily [facility] Nitroglycerin 0.3 MG Sublingual Tablet Nitroglycerin 0.3 MG 04/08/2020 12:00:00 AM EDT active Nitroglycerin 0.3 MG eCW1 ([facility]) Nitroglycerin 0.3 MG Sublingual Tablet Nitroglycerin 0.3 MG 04/08/2020 12:00:00 AM EDT active Nitroglycerin 0.3 MG eCW1 ([facility]) Nitroglycerin 0.3 MG Sublingual Tablet Nitroglycerin 0.3 MG 04/08/2020 12:00:00 AM EDT active Nitroglycerin 0.3 MG eCW1 ([facility]) Nitroglycerin 0.3 MG Sublingual Tablet Nitroglycerin 0.3 MG 04/08/2020 12:00:00 AM EDT active Nitroglycerin 0.3 MG eCW1 ([facility]) Nitroglycerin 0.3 MG Sublingual Tablet Nitroglycerin 0.3 MG 04/08/2020 12:00:00 AM EDT active Nitroglycerin 0.3 MG eCW1 ([facility]) Nitroglycerin 0.3 MG Sublingual Tablet Nitroglycerin 0.3 MG 04/08/2020 12:00:00 AM EDT active Nitroglycerin 0.3 MG eCW1 ([facility]) Nitroglycerin 0.3 MG Sublingual Tablet Nitroglycerin 0.3 MG 04/08/2020 12:00:00 AM EDT active Nitroglycerin 0.3 MG eCW1 ([facility]) Nitroglycerin 0.3 MG Sublingual Tablet Nitroglycerin 0.3 MG 04/08/2020 12:00:00 AM EDT active Nitroglycerin 0.3 MG eCW1 ([facility]) Nitroglycerin 0.3 MG Sublingual Tablet Nitroglycerin 0.3 MG 04/08/2020 12:00:00 AM EDT active Nitroglycerin 0.3 MG eCW1 ([facility]) Nitroglycerin 0.3 MG Sublingual Tablet Nitroglycerin 0.3 MG 04/08/2020 12:00:00 AM EDT active Nitroglycerin 0.3 MG eCW1 ([facility]) Nitroglycerin 0.3 MG Sublingual Tablet Nitroglycerin 0.3 MG 04/08/2020 12:00:00 AM EDT active Nitroglycerin 0.3 MG eCW1 ([facility]) Nitroglycerin 0.3 MG Sublingual Tablet Nitroglycerin 0.3 MG 04/08/2020 12:00:00 AM EDT active Nitroglycerin 0.3 MG eCW1 ([facility]) Nitroglycerin 0.3 MG Sublingual Tablet Nitroglycerin 0.3 MG 04/08/2020 12:00:00 AM EDT active Nitroglycerin 0.3 MG eCW1 ([facility]) Nitroglycerin 0.3 MG Sublingual Tablet Nitroglycerin 0.3 MG 04/08/2020 12:00:00 AM EDT active Nitroglycerin 0.3 MG eCW1 ([facility]) Clonidine Hydrochloride 0.1 MG Oral Tablet Clonidine H Cl 0.1 MG Clonidine HCl 0.1 MG 04/03/2020 12:00:00 AM EDT 1.0 {tablet} suspe nded Clonidine HCl 0.1 MG eCW1 ([facility]) Clonidine Hydrochloride 0.1 MG Oral Tablet Clonidine H Cl 0.1 MG Clonidine HCl 0.1 MG 04/03/2020 12:00:00 AM EDT 1.0 {tablet} suspe nded Clonidine HCl 0.1 MG eCW1 ([facility]) Hydrochlorothiazide 25 MG Oral Tablet Hydrochlorothiazide 25 MG 04/03/2020 12:00:00 AM EDT 1.0 {tablet_in_the_morning} acti ve Hydrochlorothiazide 25 MG eCW1 ([facility]) Hydrochlorothiazide 25 MG Oral Tablet Hydrochlorothiazide 25 MG 04/03/2020 12:00:00 AM EDT 1.0 {tablet_in_the_morning} acti ve Hydrochlorothiazide 25 MG eCW1 ([facility]) Hydrochlorothiazide 25 MG Oral Tablet Hydrochlorothiazide 25 MG 04/03/2020 12:00:00 AM EDT 1.0 {tablet_in_the_morning} acti ve Hydrochlorothiazide 25 MG eCW1 ([facility]) atorvastatin 80 MG Oral Tablet Atorvastatin Calcium 80 MG Atorvastatin Calcium 80 MG 04/03/2020 12:00:00 AM EDT 1.0 {tablet} activ e Atorvastatin Calcium 80 MG eCW1 ([facility]) Hydrochlorothiazide 25 MG Oral Tablet Hydrochlorothiazide 25 MG 04/03/2020 12:00:00 AM EDT 1.0 {tablet_in_the_morning} acti ve Hydrochlorothiazide 25 MG eCW1 ([facility]) Hydrochlorothiazide 25 MG Oral Tablet Hydrochlorothiazide 25 MG 04/03/2020 12:00:00 AM EDT 1.0 {tablet_in_the_morning} acti ve Hydrochlorothiazide 25 MG eCW1 ([facility]) Isosorbide Dinitrate 30 MG Oral Tablet Isosorbide Dinitrate 30 MG 04/03/2020 12:00:00 AM EDT 1.0 {tablet} active Is osorbide Dinitrate 30 MG eCW1 ([facility]) Hydrochlorothiazide 25 MG Oral Tablet Hydrochlorothiazide 25 MG 04/03/2020 12:00:00 AM EDT 1.0 {tablet_in_the_morning} acti ve Hydrochlorothiazide 25 MG eCW1 ([facility]) Hydrochlorothiazide 25 MG Oral Tablet Hydrochlorothiazide 25 MG 04/03/2020 12:00:00 AM EDT 1.0 {tablet_in_the_morning} acti ve Hydrochlorothiazide 25 MG eCW1 ([facility]) Aspirin 81 MG Delayed Release Oral Tablet Aspirin 81 81 MG A spirin 81 81 MG 04/03/2020 12:00:00 AM EDT 1.0 {tablet} active Aspirin 81 81 MG eCW1 ([facility]) Hydrochlorothiazide 25 MG Oral Tablet Hydrochlorothiazide 25 MG 04/03/2020 12:00:00 AM EDT 1.0 {tablet_in_the_morning} acti ve Hydrochlorothiazide 25 MG eCW1 ([facility]) Aspirin 81 MG Delayed Release Oral Tablet Aspirin 81 81 MG A spirin 81 81 MG 04/03/2020 12:00:00 AM EDT 1.0 {tablet} active Aspirin 81 81 MG eCW1 ([facility]) Aspirin 81 MG Delayed Release Oral Tablet Aspirin 81 81 MG A spirin 81 81 MG 04/03/2020 12:00:00 AM EDT 1.0 {tablet} active Aspirin 81 81 MG eCW1 ([facility]) Hydrochlorothiazide 25 MG Oral Tablet hydroCHLOROthiaz brennan 25 MG hydroCHLOROthiazide 25 MG 04/03/2020 12:00:00 AM EDT 1.0 {tablet_in_the_morning} active hydroCHL OROthiazide 25 MG eCW1 ([facility]) Hydrochlorothiazide 25 MG Oral Tablet Hydrochlorothiazide 25 MG 04/03/2020 12:00:00 AM EDT 1.0 {tablet_in_the_morning} acti ve Hydrochlorothiazide 25 MG eCW1 ([facility]) Isosorbide Dinitrate 30 MG Oral Tablet Isosorbide Dinitrate 30 MG 04/03/2020 12:00:00 AM EDT 1.0 {tablet} active Is osorbide Dinitrate 30 MG eCW1 ([facility]) Hydrochlorothiazide 25 MG Oral Tablet hydroCHLOROthiaz brennan 25 MG hydroCHLOROthiazide 25 MG 04/03/2020 12:00:00 AM EDT 1.0 {tablet_in_the_morning} active hydroCHL OROthiazide 25 MG eCW1 ([facility]) Hydrochlorothiazide 25 MG Oral Tablet Hydrochlorothiazide 25 MG 04/03/2020 12:00:00 AM EDT 1.0 {tablet_in_the_morning} acti ve Hydrochlorothiazide 25 MG eCW1 ([facility]) Hydrochlorothiazide 25 MG Oral Tablet Hydrochlorothiazide 25 MG 04/03/2020 12:00:00 AM EDT 1.0 {tablet_in_the_morning} acti ve Hydrochlorothiazide 25 MG eCW1 ([facility]) Clonidine Hydrochloride 0.1 MG Oral Tablet Clonidine H Cl 0.1 MG Clonidine HCl 0.1 MG 04/03/2020 12:00:00 AM EDT 1.0 {tablet} activ e Clonidine HCl 0.1 MG eCW1 ([facility]) Clonidine Hydrochloride 0.1 MG Oral Tablet Clonidine H Cl 0.1 MG Clonidine HCl 0.1 MG 04/03/2020 12:00:00 AM EDT 1.0 {tablet} suspe nded Clonidine HCl 0.1 MG eCW1 ([facility]) Clonidine Hydrochloride 0.1 MG Oral Tablet Clonidine H Cl 0.1 MG Clonidine HCl 0.1 MG 04/03/2020 12:00:00 AM EDT 1.0 {tablet} suspe nded Clonidine HCl 0.1 MG eCW1 ([facility]) atorvastatin 80 MG Oral Tablet Atorvastatin Calcium 80 MG Atorvastatin Calcium 80 MG 04/03/2020 12:00:00 AM EDT 1.0 {tablet} activ e Atorvastatin Calcium 80 MG eCW1 ([facility]) atorvastatin 80 MG Oral Tablet Atorvastatin Calcium 80 MG Atorvastatin Calcium 80 MG 04/03/2020 12:00:00 AM EDT 1.0 {tablet} activ e Atorvastatin Calcium 80 MG eCW1 ([facility]) Aspirin 81 MG Delayed Release Oral Tablet Aspirin 81 81 MG A spirin 81 81 MG 04/03/2020 12:00:00 AM EDT 1.0 {tablet} active Aspirin 81 81 MG eCW1 ([facility]) Clonidine Hydrochloride 0.1 MG Oral Tablet Clonidine H Cl 0.1 MG Clonidine HCl 0.1 MG 04/03/2020 12:00:00 AM EDT 1.0 {tablet} suspe nded Clonidine HCl 0.1 MG eCW1 ([facility]) Aspirin 81 MG Delayed Release Oral Tablet Aspirin 81 81 MG A spirin 81 81 MG 04/03/2020 12:00:00 AM EDT 1.0 {tablet} active Aspirin 81 81 MG eCW1 ([facility]) Hydrochlorothiazide 25 MG Oral Tablet Hydrochlorothiazide 25 MG 04/03/2020 12:00:00 AM EDT 1.0 {tablet_in_the_morning} acti ve Hydrochlorothiazide 25 MG eCW1 ([facility]) Hydrochlorothiazide 25 MG Oral Tablet Hydrochlorothiazide 25 MG 04/03/2020 12:00:00 AM EDT 1.0 {tablet_in_the_morning} acti ve Hydrochlorothiazide 25 MG eCW1 ([facility]) Clonidine Hydrochloride 0.1 MG Oral Tablet Clonidine H Cl 0.1 MG Clonidine HCl 0.1 MG 04/03/2020 12:00:00 AM EDT 1.0 {tablet} suspe nded Clonidine HCl 0.1 MG eCW1 ([facility]) Hydrochlorothiazide 25 MG Oral Tablet Hydrochlorothiazide 25 MG 04/03/2020 12:00:00 AM EDT 1.0 {tablet_in_the_morning} acti ve Hydrochlorothiazide 25 MG eCW1 ([facility]) Isosorbide Dinitrate 30 MG Oral Tablet Isosorbide Dinitrate 30 MG 04/03/2020 12:00:00 AM EDT 1.0 {tablet} active Is osorbide Dinitrate 30 MG eCW1 ([facility]) Clonidine Hydrochloride 0.1 MG Oral Tablet Clonidine H Cl 0.1 MG Clonidine HCl 0.1 MG 04/03/2020 12:00:00 AM EDT 1.0 {tablet} suspe nded Clonidine HCl 0.1 MG eCW1 ([facility]) Aspirin 81 MG Delayed Release Oral Tablet Aspirin 81 81 MG A spirin 81 81 MG 04/03/2020 12:00:00 AM EDT 1.0 {tablet} active Aspirin 81 81 MG eCW1 ([facility]) Hydrochlorothiazide 25 MG Oral Tablet Hydrochlorothiazide 25 MG 04/03/2020 12:00:00 AM EDT 1.0 {tablet_in_the_morning} acti ve Hydrochlorothiazide 25 MG eCW1 ([facility]) Aspirin 81 MG Delayed Release Oral Tablet Aspirin 81 81 MG A spirin 81 81 MG 04/03/2020 12:00:00 AM EDT 1.0 {tablet} active Aspirin 81 81 MG eCW1 ([facility]) Hydrochlorothiazide 25 MG Oral Tablet Hydrochlorothiazide 25 MG 04/03/2020 12:00:00 AM EDT 1.0 {tablet_in_the_morning} acti ve Hydrochlorothiazide 25 MG eCW1 ([facility]) Aspirin 81 MG Delayed Release Oral Tablet Aspirin 81 81 MG A spirin 81 81 MG 04/03/2020 12:00:00 AM EDT 1.0 {tablet} active Aspirin 81 81 MG eCW1 ([facility]) atorvastatin 80 MG Oral Tablet Atorvastatin Calcium 80 MG Atorvastatin Calcium 80 MG 04/03/2020 12:00:00 AM EDT 1.0 {tablet} activ e Atorvastatin Calcium 80 MG eCW1 ([facility]) Hydrochlorothiazide 25 MG Oral Tablet Hydrochlorothiazide 25 MG 04/03/2020 12:00:00 AM EDT 1.0 {tablet_in_the_morning} acti ve Hydrochlorothiazide 25 MG eCW1 ([facility]) Clonidine Hydrochloride 0.1 MG Oral Tablet Clonidine H Cl 0.1 MG Clonidine HCl 0.1 MG 04/03/2020 12:00:00 AM EDT 1.0 {tablet} suspe nded Clonidine HCl 0.1 MG eCW1 ([facility]) pregabalin 150 MG Oral Capsule pregabalin (LYRICA) 150 MG capsule pregabalin (LYRICA) 150 MG capsule 04/03/2020 12:00:00 AM EDT active TK 1 C PO BID. MDD 2 CS [facility] Clonidine Hydrochloride 0.1 MG Oral Tablet Clonidine H Cl 0.1 MG Clonidine HCl 0.1 MG 04/03/2020 12:00:00 AM EDT 1.0 {tablet} suspe nded Clonidine HCl 0.1 MG eCW1 ([facility]) Clonidine Hydrochloride 0.1 MG Oral Tablet Clonidine H Cl 0.1 MG Clonidine HCl 0.1 MG 04/03/2020 12:00:00 AM EDT 1.0 {tablet} suspe nded Clonidine HCl 0.1 MG eCW1 ([facility]) meloxicam 15 MG Oral Tablet meloxicam (MOBIC) 15 MG ta blet meloxicam (MOBIC) 15 MG tablet 04/03/2020 12:00:00 AM EDT active as needed [facility] Clonidine Hydrochloride 0.1 MG Oral Tablet Clonidine H Cl 0.1 MG Clonidine HCl 0.1 MG 04/03/2020 12:00:00 AM EDT 1.0 {tablet} suspe nded Clonidine HCl 0.1 MG eCW1 ([facility]) Hydrochlorothiazide 25 MG Oral Tablet Hydrochlorothiazide 25 MG 04/03/2020 12:00:00 AM EDT 1.0 {tablet_in_the_morning} acti ve Hydrochlorothiazide 25 MG eCW1 ([facility]) Hydrochlorothiazide 25 MG Oral Tablet Hydrochlorothiazide 25 MG 04/03/2020 12:00:00 AM EDT 1.0 {tablet_in_the_morning} acti ve Hydrochlorothiazide 25 MG eCW1 ([facility]) Isosorbide Dinitrate 30 MG Oral Tablet Isosorbide Dinitrate 30 MG 04/03/2020 12:00:00 AM EDT 1.0 {tablet} active Is osorbide Dinitrate 30 MG eCW1 ([facility]) Aspirin 81 MG Delayed Release Oral Tablet Aspirin 81 81 MG A spirin 81 81 MG 04/03/2020 12:00:00 AM EDT 1.0 {tablet} active Aspirin 81 81 MG eCW1 ([facility]) Hydrochlorothiazide 25 MG Oral Tablet Hydrochlorothiazide 25 MG 04/03/2020 12:00:00 AM EDT 1.0 {tablet_in_the_morning} acti ve Hydrochlorothiazide 25 MG eCW1 ([facility]) Clonidine Hydrochloride 0.1 MG Oral Tablet Clonidine H Cl 0.1 MG Clonidine HCl 0.1 MG 04/03/2020 12:00:00 AM EDT 1.0 {tablet} activ e Clonidine HCl 0.1 MG eCW1 ([facility]) Aspirin 81 MG Delayed Release Oral Tablet Aspirin 81 81 MG A spirin 81 81 MG 04/03/2020 12:00:00 AM EDT 1.0 {tablet} active Aspirin 81 81 MG eCW1 ([facility]) atorvastatin 80 MG Oral Tablet Atorvastatin Calcium 80 MG Atorvastatin Calcium 80 MG 04/03/2020 12:00:00 AM EDT 1.0 {tablet} activ e Atorvastatin Calcium 80 MG eCW1 ([facility]) Hydrochlorothiazide 25 MG Oral Tablet Hydrochlorothiazide 25 MG 04/03/2020 12:00:00 AM EDT 1.0 {tablet_in_the_morning} acti ve Hydrochlorothiazide 25 MG eCW1 ([facility]) Isosorbide Dinitrate 30 MG Oral Tablet Isosorbide Dinitrate 30 MG 04/03/2020 12:00:00 AM EDT 1.0 {tablet} active Is osorbide Dinitrate 30 MG eCW1 ([facility]) Hydrochlorothiazide 25 MG Oral Tablet Hydrochlorothiazide 25 MG 04/03/2020 12:00:00 AM EDT 1.0 {tablet_in_the_morning} acti ve Hydrochlorothiazide 25 MG eCW1 ([facility]) Hydrochlorothiazide 25 MG Oral Tablet Hydrochlorothiazide 25 MG 04/03/2020 12:00:00 AM EDT 1.0 {tablet_in_the_morning} acti ve Hydrochlorothiazide 25 MG eCW1 ([facility]) Aspirin 81 MG Delayed Release Oral Tablet Aspirin 81 81 MG A spirin 81 81 MG 04/03/2020 12:00:00 AM EDT 1.0 {tablet} active Aspirin 81 81 MG eCW1 ([facility]) Clonidine Hydrochloride 0.1 MG Oral Tablet Clonidine H Cl 0.1 MG Clonidine HCl 0.1 MG 04/03/2020 12:00:00 AM EDT 1.0 {tablet} suspe nded Clonidine HCl 0.1 MG eCW1 ([facility]) Clonidine Hydrochloride 0.1 MG Oral Tablet Clonidine H Cl 0.1 MG Clonidine HCl 0.1 MG 04/03/2020 12:00:00 AM EDT 1.0 {tablet} suspe nded Clonidine HCl 0.1 MG eCW1 ([facility]) Isosorbide Dinitrate 30 MG Oral Tablet Isosorbide Dinitrate 30 MG 04/03/2020 12:00:00 AM EDT 1.0 {tablet} active Is osorbide Dinitrate 30 MG eCW1 ([facility]) Aspirin 81 MG Delayed Release Oral Tablet Aspirin 81 81 MG A spirin 81 81 MG 04/03/2020 12:00:00 AM EDT 1.0 {tablet} active Aspirin 81 81 MG eCW1 ([facility]) Hydrochlorothiazide 25 MG Oral Tablet Hydrochlorothiazide 25 MG 04/03/2020 12:00:00 AM EDT 1.0 {tablet_in_the_morning} acti ve Hydrochlorothiazide 25 MG eCW1 ([facility]) atorvastatin 80 MG Oral Tablet Atorvastatin Calcium 80 MG Atorvastatin Calcium 80 MG 04/03/2020 12:00:00 AM EDT 1.0 {tablet} activ e Atorvastatin Calcium 80 MG eCW1 ([facility]) Clonidine Hydrochloride 0.1 MG Oral Tablet Clonidine H Cl 0.1 MG Clonidine HCl 0.1 MG 04/03/2020 12:00:00 AM EDT 1.0 {tablet} suspe nded Clonidine HCl 0.1 MG eCW1 ([facility]) Clonidine Hydrochloride 0.1 MG Oral Tablet Clonidine H Cl 0.1 MG Clonidine HCl 0.1 MG 04/03/2020 12:00:00 AM EDT 1.0 {tablet} suspe nded Clonidine HCl 0.1 MG eCW1 ([facility]) Aspirin 81 MG Delayed Release Oral Tablet Aspirin 81 81 MG A spirin 81 81 MG 04/03/2020 12:00:00 AM EDT 1.0 {tablet} active Aspirin 81 81 MG eCW1 ([facility]) Clonidine Hydrochloride 0.1 MG Oral Tablet cloNIDine H Cl 0.1 MG cloNIDine HCl 0.1 MG 04/03/2020 12:00:00 AM EDT 1.0 {tablet} suspe nded cloNIDine HCl 0.1 MG eCW1 ([facility]) Clonidine Hydrochloride 0.1 MG Oral Tablet Clonidine H Cl 0.1 MG Clonidine HCl 0.1 MG 04/03/2020 12:00:00 AM EDT 1.0 {tablet} suspe nded Clonidine HCl 0.1 MG eCW1 ([facility]) Clonidine Hydrochloride 0.1 MG Oral Tablet Clonidine H Cl 0.1 MG Clonidine HCl 0.1 MG 04/03/2020 12:00:00 AM EDT 1.0 {tablet} suspe nded Clonidine HCl 0.1 MG eCW1 ([facility]) Isosorbide Dinitrate 30 MG Oral Tablet Isosorbide Dinitrate 30 MG 04/03/2020 12:00:00 AM EDT 1.0 {tablet} suspended Isosorbide Dinitrate 30 MG eCW1 ([facility]) Clonidine Hydrochloride 0.1 MG Oral Tablet Clonidine H Cl 0.1 MG Clonidine HCl 0.1 MG 04/03/2020 12:00:00 AM EDT 1.0 {tablet} suspe nded Clonidine HCl 0.1 MG eCW1 ([facility]) Hydrochlorothiazide 25 MG Oral Tablet Hydrochlorothiazide 25 MG 04/03/2020 12:00:00 AM EDT 1.0 {tablet_in_the_morning} acti ve Hydrochlorothiazide 25 MG eCW1 ([facility]) Clonidine Hydrochloride 0.1 MG Oral Tablet Clonidine H Cl 0.1 MG Clonidine HCl 0.1 MG 04/03/2020 12:00:00 AM EDT 1.0 {tablet} suspe nded Clonidine HCl 0.1 MG eCW1 ([facility]) Clonidine Hydrochloride 0.1 MG Oral Tablet Clonidine H Cl 0.1 MG Clonidine HCl 0.1 MG 04/03/2020 12:00:00 AM EDT 1.0 {tablet} suspe nded Clonidine HCl 0.1 MG eCW1 ([facility]) Clonidine Hydrochloride 0.1 MG Oral Tablet cloNIDine H Cl 0.1 MG cloNIDine HCl 0.1 MG 04/03/2020 12:00:00 AM EDT 1.0 {tablet} suspe nded cloNIDine HCl 0.1 MG eCW1 ([facility]) Hydrochlorothiazide 25 MG Oral Tablet Hydrochlorothiazide 25 MG 04/03/2020 12:00:00 AM EDT 1.0 {tablet_in_the_morning} acti ve Hydrochlorothiazide 25 MG eCW1 ([facility]) Clonidine Hydrochloride 0.1 MG Oral Tablet Clonidine H Cl 0.1 MG Clonidine HCl 0.1 MG 04/03/2020 12:00:00 AM EDT 1.0 {tablet} suspe nded Clonidine HCl 0.1 MG eCW1 ([facility]) Hydrochlorothiazide 25 MG Oral Tablet Hydrochlorothiazide 25 MG 04/03/2020 12:00:00 AM EDT 1.0 {tablet_in_the_morning} acti ve Hydrochlorothiazide 25 MG eCW1 ([facility]) Aspirin 81 MG Delayed Release Oral Tablet Aspirin 81 81 MG A spirin 81 81 MG 04/03/2020 12:00:00 AM EDT 1.0 {tablet} active Aspirin 81 81 MG eCW1 ([facility]) Clonidine Hydrochloride 0.1 MG Oral Tablet Clonidine H Cl 0.1 MG Clonidine HCl 0.1 MG 04/03/2020 12:00:00 AM EDT 1.0 {tablet} activ e Clonidine HCl 0.1 MG eCW1 ([facility]) atorvastatin 80 MG Oral Tablet Atorvastatin Calcium 80 MG Atorvastatin Calcium 80 MG 04/03/2020 12:00:00 AM EDT 1.0 {tablet} activ e Atorvastatin Calcium 80 MG eCW1 ([facility]) Clonidine Hydrochloride 0.1 MG Oral Tablet Clonidine H Cl 0.1 MG Clonidine HCl 0.1 MG 04/03/2020 12:00:00 AM EDT 1.0 {tablet} suspe nded Clonidine HCl 0.1 MG eCW1 ([facility]) Hydrochlorothiazide 25 MG Oral Tablet Hydrochlorothiazide 25 MG 04/03/2020 12:00:00 AM EDT 1.0 {tablet_in_the_morning} acti ve Hydrochlorothiazide 25 MG eCW1 ([facility]) Aspirin 81 MG Delayed Release Oral Tablet Aspirin 81 81 MG A spirin 81 81 MG 04/03/2020 12:00:00 AM EDT 1.0 {tablet} active Aspirin 81 81 MG eCW1 ([facility]) Clonidine Hydrochloride 0.1 MG Oral Tablet Clonidine H Cl 0.1 MG Clonidine HCl 0.1 MG 04/03/2020 12:00:00 AM EDT 1.0 {tablet} suspe nded Clonidine HCl 0.1 MG eCW1 ([facility]) Albuterol Sulfate HFA 108 (90 Base) MCG/ACT Albuterol Sulfate HFA 108 (90 Base) MCG/ACT 03/27/2020 12:00:00 AM EDT 1.0 {puff_as_needed} suspended Albuterol Sulfate HFA 108 (90 Base) MCG/ACT eCW1 ([facility]) Albuterol Sulfate HFA 108 (90 Base) MCG/ACT Albuterol Sulfate HFA 108 (90 Base) MCG/ACT 03/27/2020 12:00:00 AM EDT 1.0 {puff_as_needed} suspended Albuterol Sulfate HFA 108 (90 Base) MCG/ACT eCW1 ([facility]) Albuterol Sulfate HFA 108 (90 Base) MCG/ACT Albuterol Sulfate HFA 108 (90 Base) MCG/ACT 03/27/2020 12:00:00 AM EDT 1.0 {puff_as_needed} active Albuterol Sulfate HFA 108 (90 Base) MCG/ACT eCW1 ([facility]) Albuterol Sulfate HFA 108 (90 Base) MCG/ACT Albuterol Sulfate HFA 108 (90 Base) MCG/ACT 03/27/2020 12:00:00 AM EDT 1.0 {puff_as_needed} suspended Albuterol Sulfate HFA 108 (90 Base) MCG/ACT eCW1 ([facility]) Albuterol Sulfate HFA 108 (90 Base) MCG/ACT Albuterol Sulfate HFA 108 (90 Base) MCG/ACT 03/27/2020 12:00:00 AM EDT 1.0 {puff_as_needed} suspended Albuterol Sulfate HFA 108 (90 Base) MCG/ACT eCW1 ([facility]) Albuterol Sulfate HFA 108 (90 Base) MCG/ACT Albuterol Sulfate HFA 108 (90 Base) MCG/ACT 03/27/2020 12:00:00 AM EDT 1.0 {puff_as_needed} active Albuterol Sulfate HFA 108 (90 Base) MCG/ACT eCW1 ([facility]) Albuterol Sulfate HFA 108 (90 Base) MCG/ACT Albuterol Sulfate HFA 108 (90 Base) MCG/ACT 03/27/2020 12:00:00 AM EDT 1.0 {puff_as_needed} active Albuterol Sulfate HFA 108 (90 Base) MCG/ACT eCW1 ([facility]) Albuterol Sulfate HFA 108 (90 Base) MCG/ACT Albuterol Sulfate HFA 108 (90 Base) MCG/ACT 03/27/2020 12:00:00 AM EDT 1.0 {puff_as_needed} active Albuterol Sulfate HFA 108 (90 Base) MCG/ACT eCW1 ([facility]) Albuterol Sulfate HFA 108 (90 Base) MCG/ACT Albuterol Sulfate HFA 108 (90 Base) MCG/ACT 03/27/2020 12:00:00 AM EDT 1.0 {puff_as_needed} active Albuterol Sulfate HFA 108 (90 Base) MCG/ACT eCW1 ([facility]) Albuterol Sulfate HFA 108 (90 Base) MCG/ACT Albuterol Sulfate HFA 108 (90 Base) MCG/ACT 03/27/2020 12:00:00 AM EDT 1.0 {puff_as_needed} suspended Albuterol Sulfate HFA 108 (90 Base) MCG/ACT eCW1 ([facility]) Albuterol Sulfate HFA 108 (90 Base) MCG/ACT Albuterol Sulfate HFA 108 (90 Base) MCG/ACT 03/27/2020 12:00:00 AM EDT 1.0 {puff_as_needed} suspended Albuterol Sulfate HFA 108 (90 Base) MCG/ACT eCW1 ([facility]) Albuterol Sulfate HFA 108 (90 Base) MCG/ACT Albuterol Sulfate HFA 108 (90 Base) MCG/ACT 03/27/2020 12:00:00 AM EDT 1.0 {puff_as_needed} suspended Albuterol Sulfate HFA 108 (90 Base) MCG/ACT eCW1 ([facility]) Albuterol Sulfate HFA 108 (90 Base) MCG/ACT Albuterol Sulfate HFA 108 (90 Base) MCG/ACT 03/27/2020 12:00:00 AM EDT 1.0 {puff_as_needed} active Albuterol Sulfate HFA 108 (90 Base) MCG/ACT eCW1 ([facility]) Albuterol Sulfate HFA 108 (90 Base) MCG/ACT Albuterol Sulfate HFA 108 (90 Base) MCG/ACT 03/27/2020 12:00:00 AM EDT 1.0 {puff_as_needed} suspended Albuterol Sulfate HFA 108 (90 Base) MCG/ACT eCW1 ([facility]) Albuterol Sulfate HFA 108 (90 Base) MCG/ACT Albuterol Sulfate HFA 108 (90 Base) MCG/ACT 03/27/2020 12:00:00 AM EDT 1.0 {puff_as_needed} suspended Albuterol Sulfate HFA 108 (90 Base) MCG/ACT eCW1 ([facility]) Albuterol Sulfate HFA 108 (90 Base) MCG/ACT Albuterol Sulfate HFA 108 (90 Base) MCG/ACT 03/27/2020 12:00:00 AM EDT 1.0 {puff_as_needed} active Albuterol Sulfate HFA 108 (90 Base) MCG/ACT eCW1 ([facility]) Albuterol Sulfate HFA 108 (90 Base) MCG/ACT Albuterol Sulfate HFA 108 (90 Base) MCG/ACT 03/27/2020 12:00:00 AM EDT 1.0 {puff_as_needed} suspended Albuterol Sulfate HFA 108 (90 Base) MCG/ACT eCW1 ([facility]) Albuterol Sulfate HFA 108 (90 Base) MCG/ACT Albuterol Sulfate HFA 108 (90 Base) MCG/ACT 03/27/2020 12:00:00 AM EDT 1.0 {puff_as_needed} active Albuterol Sulfate HFA 108 (90 Base) MCG/ACT eCW1 ([facility]) Albuterol Sulfate HFA 108 (90 Base) MCG/ACT Albuterol Sulfate HFA 108 (90 Base) MCG/ACT 03/27/2020 12:00:00 AM EDT 1.0 {puff_as_needed} active Albuterol Sulfate HFA 108 (90 Base) MCG/ACT eCW1 ([facility]) albuterol (PROVENTIL HFA;VENTOLIN HFA) 108 (90 Base) M CG/ACT inhaler [id number] 03/27/2020 12:00:00 AM EDT activ e INHALE ONE PUFF BY MOUTH EVERY 4 HOURS NEEDED [facility] Albuterol Sulfate HFA 108 (90 Base) MCG/ACT Albuterol Sulfate HFA 108 (90 Base) MCG/ACT 03/27/2020 12:00:00 AM EDT 1.0 {puff_as_needed} active Albuterol Sulfate HFA 108 (90 Base) MCG/ACT eCW1 ([facility]) Albuterol Sulfate HFA 108 (90 Base) MCG/ACT Albuterol Sulfate HFA 108 (90 Base) MCG/ACT 03/27/2020 12:00:00 AM EDT 1.0 {puff_as_needed} suspended Albuterol Sulfate HFA 108 (90 Base) MCG/ACT eCW1 ([facility]) Albuterol Sulfate HFA 108 (90 Base) MCG/ACT Albuterol Sulfate HFA 108 (90 Base) MCG/ACT 03/27/2020 12:00:00 AM EDT 1.0 {puff_as_needed} suspended Albuterol Sulfate HFA 108 (90 Base) MCG/ACT eCW1 ([facility]) Albuterol Sulfate HFA 108 (90 Base) MCG/ACT Albuterol Sulfate HFA 108 (90 Base) MCG/ACT 03/27/2020 12:00:00 AM EDT 1.0 {puff_as_needed} suspended Albuterol Sulfate HFA 108 (90 Base) MCG/ACT eCW1 ([facility]) Albuterol Sulfate HFA 108 (90 Base) MCG/ACT Albuterol Sulfate HFA 108 (90 Base) MCG/ACT 03/27/2020 12:00:00 AM EDT 1.0 {puff_as_needed} active Albuterol Sulfate HFA 108 (90 Base) MCG/ACT eCW1 ([facility]) Albuterol Sulfate HFA 108 (90 Base) MCG/ACT Albuterol Sulfate HFA 108 (90 Base) MCG/ACT 03/27/2020 12:00:00 AM EDT 1.0 {puff_as_needed} suspended Albuterol Sulfate HFA 108 (90 Base) MCG/ACT eCW1 ([facility]) Albuterol Sulfate HFA 108 (90 Base) MCG/ACT Albuterol Sulfate HFA 108 (90 Base) MCG/ACT 03/27/2020 12:00:00 AM EDT 1.0 {puff_as_needed} suspended Albuterol Sulfate HFA 108 (90 Base) MCG/ACT eCW1 ([facility]) 90 mcg/actuation 03/27/2020 12:00:00 AM EDT HFA aerosol inha ler 8 INHALE ONE PUFF BY MOUTH EVERY 4 HOURS NEEDED INHALE ONE PUFF BY MOUTH EVERY 4 HOURS A S NEEDED SOLD: 03/27/2020 [facility] Albuterol Sulfate HFA 108 (90 Base) MCG/ACT Albuterol Sulfate HFA 108 (90 Base) MCG/ACT 03/27/2020 12:00:00 AM EDT 1.0 {puff_as_needed} suspended Albuterol Sulfate HFA 108 (90 Base) MCG/ACT eCW1 ([facility]) Albuterol Sulfate HFA 108 (90 Base) MCG/ACT Albuterol Sulfate HFA 108 (90 Base) MCG/ACT 03/27/2020 12:00:00 AM EDT 1.0 {puff_as_needed} active Albuterol Sulfate HFA 108 (90 Base) MCG/ACT eCW1 ([facility]) Albuterol Sulfate HFA 108 (90 Base) MCG/ACT Albuterol Sulfate HFA 108 (90 Base) MCG/ACT 03/27/2020 12:00:00 AM EDT 1.0 {puff_as_needed} active Albuterol Sulfate HFA 108 (90 Base) MCG/ACT eCW1 ([facility]) Albuterol Sulfate HFA 108 (90 Base) MCG/ACT Albuterol Sulfate HFA 108 (90 Base) MCG/ACT 03/27/2020 12:00:00 AM EDT 1.0 {puff_as_needed} active Albuterol Sulfate HFA 108 (90 Base) MCG/ACT eCW1 ([facility]) pregabalin 150 MG Oral Capsule Pregabalin 03/25/2020 12:00:00 AM EDT ORAL active MEDENT ([facility]) Omeprazole 20 MG Delayed Release Oral Ca psule omeprazole (PRILOSEC) 20 MG capsule omeprazole (PRILOSEC) 20 MG capsule 02/07/2020 12:00:00 AM EDT active TAKE ONE CAPSULE BY MOUTH EVERY MORNING 30 MINUTES BEFORE MORNING MEAL [facility] 5-325 mg 01/28/2020 12:00:00 AM EDT tablet 28 TAKE ONE TABLET BY MOUTH EVERY 6 HOURS NEEDED FOR PAIN MAXIMUM DAILY DOSE = 4 TABLETS TAKE ONE TABLET BY MOUTH EVERY 6 HOURS NEEDED FOR PAIN MAXIMUM DAILY DOSE = 4 TABLETS SOLD: 01/28/2020 [facility] pregabalin 150 MG Oral Capsule [Lyrica] Lyrica 01/07/2020 12:00:0 0 AM EDT ORAL completed MEDENT ([facility]) 20 mg 08/10/2019 12:00:00 AM EST capsule,delayed release (DR/EC) 30 TAKE ONE CAPSULE BY MOUTH EVERY MORNING 30 MINUTES BEFORE MORNING MEAL TAKE ONE CAPSULE BY MOUTH EVERY MORNING 30 MINUTES BEFORE MORNING MEAL SOLD: 02/07/2020 [facility] Lisinopril 20 MG Oral Tablet lisinopril (PRINIVIL,ZEST RIL) 20 MG tablet lisinopril (PRINIVIL,ZESTRIL) 20 MG tablet 20 mg Oral aborted Take 20 mg by mouth daily [facility] Diltiazem Hydrochloride 30 MG Oral Tablet diltiazem (C ARDIZEM) 30 MG tablet diltiazem (CARDIZEM) 30 MG tablet 30 mg Oral abor jason Take 30 mg by mouth 2 (two) times a day [facility] Insurance Providers Payer name Policy type / Coverage type Policy ID Covered constitution party ID Covered constitution party's relationship to dawson Policy Dawson Plan Information D [facility] P [id number] S [id number] [facility] PLAN [facility] [id number] SP [id number] Progressive (NF) Workers Compensation [id number] Self [id number] NO FAULT [id number] Paulina [id number] [employer] (NF) Workers Compensation [id number] Self [id number] PROGRESSIVE [employer] NO FAULT [id number] SP [id number] PROGRESSIVE E [id number] Self [id number] [facility] P [id number] S [id number] [facility] P [id number] S [id number] [employer] (NF) Workers Compensation [id number] Self [id number] [employer] (NF) Workers Compensation [id number] Self [id number] [employer] (NF) Workers Compensation [id number] Self [id number] [employer] () Workers Compensation [id number] Self [id number] [employer] () Workers Compensation [id number] Self [id number] [facility] MEDICAID [id number] Paulina [id number] [facility] MEDICAID [id number] Paulina [id number] [facility] [id number] xxxxxxxxx [id number] [facility] MED[facility] [id number] xxxxxxxxx [id number] PRO[employer]ESSIVE [employer] NO FAULT [id number] SP [id number] SELF PAY ONLY [id number] SP [id number] SELF PAY ONLY SP1 SP SP1 O UNAVAILABLE UNAVAILA BLE SELF PAY ONLY [id number] SP [id number] [employer] O [id number] S [id number] [employer] NF [id number] SP [id number] ANSI-Medicaid [id number] ANSI-Medicaid [id number] ANSI-Medicaid [id number] ANSI-Medicaid [id number] ANSI-Medicaid [id number] ANSI-Medicaid [id number] ANSI-Medicaid [id number] ANSI-Not a Secondary Insurance [id number] ANSI-Medicaid [id number] ANSI-Not a Secondary Insurance [id number] ANSI-Medicaid [id number] ANSI-Not a Secondary Insurance [id number] [facility] [id number] ANSI-Medicaid [id number] ANSI-Not a Secondary Insurance [id number] ANSI-Medicaid [id number] ANSI-Not a Secondary Insurance [id number] ANSI-Not a Secondary Insurance [id number] ANSI-Medicaid [id number] ANSI-Medicaid [id number] ANSI-Not a Secondary Insurance [id number] PROGRESSIVE CO NO FAULT [id number] SP [id number] PROGRESSIVE CO NO FAULT [id number] SP [id number] ANSI-Not a Secondary Insurance [id number] ANSI-Medicaid [id number] OTHER WORKERS COMPENSATION [id number] SP [id number] MEDICAID M [id number] S [id number] MEDICAID [id number] SP [id number] PROGRESSIVE CO NO FAULT [id number] SP [id number] [facility] O [id number] S [id number] [facility] Care - Community [facility] P [id number] S [id number] ANSI-Medicaid [id number] ANSI-Not a Secondary Insurance [id number] ANSI-Medicaid [id number] ANSI-Not a Secondary Insurance [id number] Medicaid Dental S UNAVAILABLE S UN AVAILABLE PROGRESSIVE CO NO FAULT O [id number] S [id number] PROGRESSIVE CO NO FAULT [id number] SP [id number] PROGRESSIVE CO NO FAULT O [id number] S [id number] NF Progressive Insurance Claim No. [id number] Claim No. [id number] PROGRESSIVE CO NO FAULT [id number] SP [id number] NO FAULT [id number] Paulina [id number] NO FAULT PI PI NO FAULT [id number] Paulina [id number] [place](MCAID) O [id number] S [id number] SELF PAY UNAVAILABLE SP UNAVAILA BLE UN COMMUNITY PLAN MCDO [id number] SP [id number] UN COMMUNITY PLAN MCDO [id number] SP [id number] UN COMMUNITY PLAN MCDO [id number] SP [id number] PROGRESSIVE CO NO FAULT [id number] SP [id number] PROGRESSIVE CO NO FAULT [id number] SP [id number] PROGRESSIVE CO NO FAULT [id number] SP [id number] [place](MCAID) O [id number] S [id number] PROGRESSIVE CO NO FAULT O [id number] S [id number] Medicaid S [id number] S [id number] SELF PAY ONLY - SP1 SP PROGRESSIVE O [id number] S [id number] [facility] [id number] SP [id number] MEDICAID [id number] SP [id number] UMR/[employer] RISK MANAGEMENT SP [facility] CLAIMS [id number] SP [id number] PROGRESSIVE CO NO FAULT [id number] SP [id number] PROGRESSIVE CO NO FAULT [id number] SP [id number] SELF PAY ONLY [id number] SP [id number] Problems, Conditions, and Diagnoses Code Display Name Description Problem Type Effective Dates Data Source(s) I10 Essential (primary) hypertension Essential (primary) h ypertension Diagnosis 02/23/2021 07:04:11 AM EDT [facility] Z91.89 Other specified personal risk factors, n ot elsewhere classified Other specified personal risk factors, n Diagnosis 02/23/2021 07:04:11 AM ED T [facility] R07.89 Other chest pain Other chest pain Diagnosis 11/04/2020 03 :10:04 PM EDT [facility] E78.2 Mixed hyperlipidemia Mixed hyperlipidemia Diagnosis 11/04/2020 03:10:04 PM EDT [facility] R55 Syncope and collapse Syncope and collapse Diagnosis 11/04/2020 03:10:04 PM EDT [facility] N28.9 Disorder of kidney and ureter, unspecifi ed Disorder of kidney and ureter, unspecifi Diagnosis 07/01/2020 10:28:25 AM EST [facility] Z91.89 At risk for obstructive sleep apnea At risk for obstructive sleep apnea [id number] 02/23/2021 12:00:00 AM EDT [facility] R07.89 Atypical chest pain Atypical chest pain [id number] 0 11/04/2020 12:00:00 AM EDT [facility] R55 Syncope Syncope [id number] 11/04/2020 12:00:00 AM ED T [facility] I49.3 [id number] PVC (premature ventricular contraction) P roblem 10/01/2020 12:00:00 AM EDT eCW1 ([facility]) R31.29 Microscopic hematuria Microscopic hematuria Problem 08/11/2020 12:00:00 AM EST eCW1 ([facility]) [id number] Essential hypertension Essential hypertension Problem 07/15/2020 12:00:00 AM EST MEDENT ([facility]) E78.2 Mixed hyperlipidemia Mixed hyperlipidemia [id number] 05/07/2020 12:00:00 AM EST [facility] N28.9 Renal insufficiency Renal insufficiency [id number] 1 07/07/2019 12:00:00 AM EST [facility] I10 Essential hypertension Essential hypertension [id number] 05/07/2020 12:00:00 AM EST [facility] N20.0 [id number] Kidney stone on left side Problem 04/10/2020 12:00:00 AM EDT eCW1 ([facility]) 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 Probl em 04/10/2020 12:00:00 AM EDT eCW1 ([facility]) I10 [id number] Accelerated essential hypertension Proble m 04/08/2020 12:00:00 AM EDT eCW1 ([facility]) H04.123 [id number] Dry eyes Problem 04/05/2020 12:00:00 AM ED T eCW1 ([facility]) I20.8 [id number] Stable angina Problem 04/03/2020 12:00:00 AM EDT eCW1 ([facility]) E78.5 [id number] Dyslipidemia Problem 04/03/2020 12:00:00 AM EDT eCW1 ([facility]) I15.9 42290060 Secondary hypertension Problem 04/03/2020 12 :00:00 AM EDT eCW1 ([facility]) Surgeries/Procedures Procedure Description Date Indications Data Source(s) OFFICE OUTPATIENT VISIT 15 MINUTES 03/24/2021 12:00:00 AM EDT ERIC ([facility] ) POCT AMB EKG <td>POCT AMB EKG</td><td>Rou blake</td><td>02/23/2021 8:49 AM EDT</td><td> Atypical chest pain</td><td> </td> 02/23/2021 08:49:00 AM EDT Atypical chest pain [facility] Atypical chest pain OFFICE OUTPATIENT NEW 30 MINUTES 02/20/2021 12:00:00 A M EDT ERIC ([facility] ) Medication: Lidocaine HCl 2% Jelly 5mL Intravesically 09/17/2020 12:00:00 AM EDT eCW1 ([facility]) BLOOD COUNT COMPLETE AUTO&AUTO DIFRNTL WBC COUNT <td>C BC AND DIFFERENTIAL</td><td>Routine</td><td>09/01/2020</td><td></td><td> </td> 09/01/2020 12:00:00 AM EDT [facility] HEPATIC FUNCTION PANEL <td>HEPATIC FUNCTION PANEL</td><td>Routine</td><td>09/01/2020</td><td></td><td> </td> 09/01/2020 12:00:00 AM EDT [facility] BASIC METABOLIC PANEL CALCIUM TOTAL <td>BASIC METABOLI C PANEL</td><td>Routine</td><td>08/11/2020</td><td></td><td> </td> 08/11/2020 12:00:00 AM EST [facility] BASIC METABOLIC PANEL CALCIUM TOTAL <td>BASIC METABOLI C PANEL</td><td>Routine</td><td>05/23/2020 2:33 PM EST</td><td> Essential hypertension</td><td> </td> 05/23/2020 07:33:00 PM EST Essential hypertension [facility] Essential hypertension ECG ROUTINE ECG W/LEAST 12 LDS W/I&R <td>POCT AMB EKG</td><td>Routine</td><td>05/07/2020 3:30 PM EST</td><td> Essential hypertension</td><td> </td> 05/07/2020 08:30:00 PM EST Essential hypertension [facility] Essential hypertension Results ID Date Data Source [id number] 01/10/2021 05:05:26 PM EDT [facility] Name Value Range Interpretation Code Description Data Anneliese rce(s) Supporting Document(s) &PDF [facility] XNHQJf3xTlHWTkGy30/TGZgpGROxe2CpNFqsHMc3ESrzVENdL9QoxJvuNUEGKf6YAAQyCUMIIUGcTBox waW [file] [facility]+Aq451Acx+77xk5ee4oErrzQmGZGU/gXdXw/CJPGSYfaK6qZsMhyIzsYfwgrOrZg7zkPbO7 [file] AgICAgICAgICAgICAgICAgICAgICAgICAgICAgICAgICAgICAgICAgICAgICAgICAgICAgICAgICAgIC JcRYFuXKVrDQUjCNNhGSZpDI2CXIRxRLXwBSOjGRLrKCEqJZRjABWkJZIuASUbHXPzPMTtXCFeOSAzEN AgICAgICAgICAgICAgICAgICAgICAgICAgICAgICAg SUFtVQFsRFPiWZTxAXUxJEIkJQWlWULbKGPyYS0VKFQjFSMaXHOfCIVhJGCpXJGvKINeASSaEZTgDJBf ICAgICAgICAgICAgICAgICAgICAgICAgICAgICAgICAgICAgICAgICAgICAgICAgICAgICAgICAgICAg VSXtFWEeFJBgFV9GYGYeDJCeMZBfHVLiEPQwTVIkPG AgICAgICAgICAgICAgICAgICAgICAgICAgICAgICAgICAgICAgICAgICAgICAgICAgICAgICAgICAgIC AxNWPuUUZfRCTyBHRyPDDlXODiEE9HWYJqDXLsRRSfZXUwMOXnDTWfBLNiPUEdCGWjBUBpAPBsZEIdNC AgICAgICAgICAgICAgICAgICAgICAgICAgICAgICAg RVYjBQGhBAQwBFMaWGVzWXPhGRFxNKUaOSUpJQFbPY1YTVMiETNzJKKrQEYiPJVdPBXgJBUdSWPaLQSv ICAgICAgICAgICAgICAgICAgICAgICAgICAgICAgICAgICAgICAgICAgICAgICAgICAgICAgICAgICAg TIVkNTEoICDeSWMdTQ6GYMCpCZYwERZqWTKyMYOcGG AgICAgICAgICAgICAgICAgICAgICAgICAgICAgICAgICAgICAgICAgICAgICAgICAgICAgICAgICAgIC HbEWCxLMLmGVStGRCxOJWePSEvPLNgST8VHUJmYYWwZGMdLTLrOSEpSDSaZFStMLEfYMYpNAYqAWPkRJ AgICAgICAgICAgICAgICAgICAgICAgICAgICAgICAg GUFiUYAbIWBkDVJgPVRpAIKcQOScXMUnAQAcPHMuWCYcVU7CLRElAWMsQZYvBEAiCINyAKFzUSWiOYKc ICAgICAgICAgICAgICAgICAgICAgICAgICAgICAgICAgICAgICAgICAgICAgICAgICAgICAgICAgICAg ZWFgXYPpIYSqPROrORUhGK6CRHRfQGPwDVXkOCFjWV AgICAgICAgICAgICAgICAgICAgICAgICAgICAgICAgICAgICAgICAgICAgICAgICAgICAgICAgICAgIC NuXLMnBMOjNVBhQOQeTBOeMODkSYEhLVTvES8ILQ73vDWja2T0SEPtZM0xgys/Ff2JFQiqyyCnaQTwVW 8BIpYvBK8ogf4RLdGmJY4dpg4HECfLNoZoG8A9rBOp ULYnBJVSKpKaX25oIKdxWq09PNweXMZiYtZiTVn1Qv0RDkJaF1jmUOKvSaA8SIFvWaN4RDWiJaY2ISTe CmOdXHViRMZuHOCgXXQOCX2LEnGoI0UuhD79NZQPVr2+TAidqaMcYthGPaE8XTRnf3HoKQk8IC9CMBPm SJtiFW5TLLCdfZ7fYNbhTW5SZvU4EtQqBKVAQjLtT8 1nbBPlWLw4W0OeXeEpCRAtMcxnWFNxBApqLyKtPEAvXyTvRNrbVO3+ID4+HAsnYU6VWHzvhyPgYQArUo 5YHKYcPFQ2SYUmcXSkIEmmUVRAUAmpEY3CzKIyGIM5yK1vQCrzUECsWRZaS2rPVmOotFspLT70lYbrin VsbCBdDQo+Wm3DIF0vt7RuGVn1awLmQTeqVSBrFJaj VRUpWSZyMRZwSNI3TRY5XUCINpEsRIAqAVVbXYqvXYDvFZPrev0WYMTzZAZbQkT6WCBwKJAbMTZtDPoh PVSlWPP5ITJ4EMWeJOWuVQ9DFyBgIFWlKAIxODvjKLMkSFHdbs5ZWTSdGDYcWpS7GdBsPUGzLVHoUEoj BDTnWHYmWTMnBHNxQXPxZY5FJgVsJXCjCFs7TBiwFQ QdCYEdet4QOGEfXKJzRLnrUNEmOOQlIXRdRBzyTWCjTPWpYhhpBZNgPQYiON6DHlRcZYZtFAM7RIXzAB CtZGUjsk1SWPKgEJSjKbi1GJBjCZYoYBNaDXeiYQTnWGI5QOQ1SHClHPAmZM2FAdNaAYYkTLv6RlSzGT EjXTLkoa7IEZBlQJRmMqrpGFPuACOmTQCdAUdrFTEe DFA9Pcw1BTZdQEYaOM9SHhUqWGEgFEn6URSqDTYsRIYhaf3VDCHdYYEfFTR5CAHoWBFzFPOnRUmcNJOi NHZrEOS2VGWgXCKeSG4FIlCgDVYpXtCiEtMmMWFnQKZowj3BTHIkZCWgNKLjTKUbNGLeHCFdPYbdUGPl URX4Owx4XGImRORwTJ7PWwMmVAKxApH0YMEqTOPyMN Yces0JOCPoAICwDUnpPlIdTJLaDUCoRKuwVZBaHJZ3IILdEFOwCJByDQ5REtEkFGDsOkThPMSgYTOkBZ Jkdz1GELGaIVAoPrPxMwYhWAVeHQMzLFaaFJZzOJE1YtS7PMUsQZYcFK8EVlHlKXOjAyt1WMAcJVCgGL Mgko8RZSXsLVMqVDIyAmIuVWQhWVQbTSueKBKdKNG2 UaS8QJTcKLHeRK6QBiBoRUIbVco4LTDjXKWtFJCtlr2TUQZrRNZqBXMxSvJtYJIrRPVwQXdxCSThFWD0 MIL2VSNeUBXfGT0XPpMtJFFrHvs0YIczPZXnEXEquu9LOFVvFOGrMXH4JVIaSYDlDXKxFSgeKPWrTIRg Pbr2NQLrAZAtHA4KDuVdTPTtVzW5LfUkDRBrHDLuun 3EPXWqLUIqKXx6BJStDQRfOVZvGCpyYCDfXBOcZHNrMAHlSPGqHK7HVwUwXTXiNiEnDjiyMUEeOIGsdu 7HWARsLCRjCOAjFVScUJRlNHAzBFihPYCnETMpJqCtVMMkEISgPA3OVhAqCEZlFoG7JTtzVSJrSHWreu 0BDTZrIBTbNuS2HXEtXMDzKCAeZResWFXlGUNkVNV9 PLTfDFBlQM8TElEhSWErMwC1FCNkNEUbLFHvst4KAFLeNUHoFeX0BiNxKQBzUOVzISvgXYUeCOSvHuj6 BLRnFQXkQB8KJlWqTBMnSrAcAPOcUSGaTXSete2TxQYcxVbnyf7TUAhRMg1GcMbqSMGqFCirGb5hqKO7 FQQzKONZOu7WmxOkHJJzBTETZWkxCRVmOTSbSKGbAC XoTUI0QgL9MpM9VUWrMtRqQHMpFTOcUccuWaL6VVSqKfF0JsH3AwO0KlEiWJvgWWIwGSR4DGXyO8TiKT I+XX7hSXa+Uj2Ck4FhxlV2gtZtOSowGOJsWD4LPFPQI6XEBc== ID Date Data Source TOTAL PROTEIN,RANDOM URINE 12/03/2020 12:00:00 AM EDT eCW1 ( [facility]) Name Value Range Interpretation Code Description Data Anneliese rce(s) Supporting Document(s) 125.7 0.0-12.0 TOTAL PROTEIN,RANDOM URIN E eCW1 ([facility]) ID Date Data Source CREATININE,RANDOM URINE 12/03/2020 12:00:00 AM EDT eCW1 ([facility]) Name Value Range Interpretation Code Description Data Anneliese rce(s) Supporting Document(s) 119.0 CREATININE,RANDOM URINE eCW1 ( [facility]) ID Date Data Source Basic Metabolic Profile (BMP) 12/03/2020 12:00:00 AM EDT eCW 1 ([facility]) Name Value Range Interpretation Code Description Data Anneliese rce(s) Supporting Document(s) 12 7-18 BLOOD UREA NITROGEN eCW1 ([facility]) 93 70-100 GLUCOSE, FASTING eCW1 ([facility]) > 60.0 >60 GLOMERULAR FILTRATION RATE eCW 1 ([facility]) 139 136-145 SODIUM LEVEL eCW1 ([facility]) 1.37 0.70-1.30 CREATININE FOR GFR eCW1 ([facility]) 9.1 8.5-10.1 CALCIUM LEVEL eCW1 ([facility]) 31 21-32 CARBON DIOXIDE LEVEL eCW1 ([facility]) 103 98-107 CHLORIDE LEVEL eCW1 ([facility]) 3.7 3.5-5.1 POTASSIUM SERUM eCW1 ([facility]) ID Date Data Source [id number] 11/10/2020 09:45:32 PM EDT [facility] Name Value Range Interpretation Code Description Data Anneliese rce(s) Supporting Document(s) &PDF [facility] QIRFFt0zRyOVAnPj30/UGPngGRRqq6PoRNujJFf7RHoyXSWmI3IowEopGCGUDa4GUIBuJADWMQWgRDAc waW [file] ICAgICAgICAgICAgICAgICAgICAgICAgICAgICAgICAgICAgICAgICAgICAgICANCiAgICAgICAgICAg ICAgICAgICAgICAgICAgICAgICAgICAgICAgICAgIC AgICAgICAgICAgICAgICAgICAgICAgICAgICAgICAgICAgICAgICAgICAgICAgICAgICAgICAgICANCi AgICAgICAgICAgICAgICAgICAgICAgICAgICAgICAgICAgICAgICAgICAgICAgICAgICAgICAgICAgIC AgICAgICAgICAgICAgICAgICAgICAgICAgICAgICAg ICAgICAgICANCiAgICAgICAgICAgICAgICAgICAgICAgICAgICAgICAgICAgICAgICAgICAgICAgICAg ICAgICAgICAgICAgICAgICAgICAgICAgICAgICAgICAgICAgICAgICAgICAgICAgICANCiAgICAgICAg ICAgICAgICAgICAgICAgICAgICAgICAgICAgICAgIC AgICAgICAgICAgICAgICAgICAgICAgICAgICAgICAgICAgICAgICAgICAgICAgICAgICAgICAgICAgIC ANCiAgICAgICAgICAgICAgICAgICAgICAgICAgICAgICAgICAgICAgICAgICAgICAgICAgICAgICAgIC AgICAgICAgICAgICAgICAgICAgICAgICAgICAgICAg ICAgICAgICAgICANCiAgICAgICAgICAgICAgICAgICAgICAgICAgICAgICAgICAgICAgICAgICAgICAg ICAgICAgICAgICAgICAgICAgICAgICAgICAgICAgICAgICAgICAgICAgICAgICAgICAgICANCiAgICAg ICAgICAgICAgICAgICAgICAgICAgICAgICAgICAgIC AgICAgICAgICAgICAgICAgICAgICAgICAgICAgICAgICAgICAgICAgICAgICAgICAgICAgICAgICAgIC AgICANCiAgICAgICAgICAgICAgICAgICAgICAgICAgICAgICAgICAgICAgICAgICAgICAgICAgICAgIC AgICAgICAgICAgICAgICAgICAgICAgICAgICAgICAg ICAgICAgICAgICAgICANCiAgICAgICAgICAgICAgICAgICAgICAgICAgICAgICAgICAgICAgICAgICAg ICAgICAgICAgICAgICAgICAgICAgICAgICAgICAgICAgICAgICAgICAgICAgICAgICAgICAgICANCjw/ aIEoL6kbiLQvdkU8I3tiSu9YHp4SRI2jd7TeKWUyUU tmupSlMuuZUdMzNMDyXexKNhw1SVzgGB0JcYRuS3ZwC9EpUEkiWG8DTAZfYBEumLBqDLZdHEIvHcR9DS AmJBhqLB4EaTFbCIgcFVPfUJEoJrBdQPBqSMRcDKBiXX6TTRWlP294jzRqHp9UKm3EHvGhGA9ygq8MRP BlSMVlXqvTBqf4DTzqWH3IpKUlM5NqjOIme2nQDpXg K5NVAHW9RCYiQq9UKUZgQxGwVQCvFSvpHN6oGYPaDRRDhDxbhaW8JC2QOC0bpfFrIT9ZMnQmPb1yXw3P JaMsD5GaP6YfAFBeXECVNQgvYJ5HOUNfCDP9SHNzUKNeYYJXUwXaW76cEO4IO2Qzl08bOuT7CENeKzBc DSfoCD17kSwggcCptGZejGluJK6PBl4+DQplbmRvYm xLLywwGOVZYsDaKWVVVwSnSAZaQFBiSQDjZrC4JoCfOo2UUOGfLTOtQQCpXcJvZJMsHBWjVCccAPSyMD JiBzr1ANWuBPYyCO3CWcRjMYDdHaD9GKIgWVDfDTWezw1ZSZPySNNcJWT6JMEgPYMvZVNsNDioCMFwOV K3LKHmEVMvMFKuIN4IOuHkEXRuJEC8XIQkTDUqJTDe hx9JHQVvCDEoFOqeWiYoVYNyOOZrWRswRDTiSRW3YWX6TYFpFMHdSJ0QMjYsACRfHNT2SYNuCCEbXIPg ht5GWXZzTPFlJwW2OVPyFPQtHFXoQKyzQWIwYVBeBiH1KNLyWIWtMP2KHqJrHLJvMGY3DBIhKIFuBBUe cr9APYHbKSEyZPTvJEGkRPPdRYLmDEkeFVAlULK4GU bpACVkFPKoEP1ZLvJwQBZkWEJcTHEaXYJiGOPcdh7GYFGhOYJiRGW5KgGiTSViAMTfWQmhQRXeWNM5Gx UaECIdYVQbKQ4XQmFkSTYeIWE2OKWmUYWeIGImyo9NOZPnLWWrCgdzYgTlODPvEGFnDDqvHRPcDSH5Fu k2PHTuHOElXW8YJbYhGCSsBIb2ULGzPEUyBOLupu7K FIDhERHeHUE8EUNmNBExBPGhFIacSKKoPXH7Frq3VHHfRDZoYU0XKuZeRZDxQBd1ImJbMBYbBWIlmx1J WJBrENEvROl6MkSbXBSeAXIyTCzdOYKrVCJ6IhChIPUrTFUoHI1KDuTtGMCwACt5PCneVQSuPFOpjz8E VJDnUFThGSR8FNVuBTXjZAMiMLrzBYKaVIIiOQI4BH UqUIZkTG3JCnZrESTdIdJlFGjtSPUjXHIcfa9GHCGiZXVpWNJzLWFeWQJuTGVgVXexOKMsDZIeGBj6LA YrLYAxEZ9IExDwXZKqJmKoNwQyOQAxLXIpkx9NSVFfTHHdSJA5IrOjRTGvQCUePDkmQPOuYDCcRyS9GB NlTVKrAN9TMhNtAXUmYlF3IfpqDKNxRPMdes6XPWYc KKClIkHiNTUpYUTgPDMoUKozYXOgUJUfJoT7RQIvXDCjTG1TVqKpOQZoWoHcKvNnQGNpZDAzsh6CKPUf CFFyWEEbCFKrSZYcFCHkXSv4gmYkxDLnEPe4NQ0IL5UovfDwKEKEYc6Zx910WFRdDIJeMd3CC6diEp7v QJUkBCHZGp3PKFn9QTA9KlGiZaGgQBGqQgMiZZSkJO KvN3IgPoMeEPW1ZAL+TTwsKKbeYAZzAWY2BpYkEvN9BCE7I5EqDaC8UEP4RYTzGR6aTXWRMk8+DQpzdG QepDddVQLQYcM7Grb9IMctJPRVHc0L ID Date Data Source NON WEB COORDINATOR CYTOLOGY REQ FOR SERVI 08/11/2020 12:00:00 AM EST eC W1 ([facility]) Name Value Range Interpretation Code Description Data Anneliese rce(s) Supporting Document(s) URINE eCW1 ([facility], 1928–1983) ID Date Data Source URINE CULTURE 08/11/2020 12:00:00 AM EST eCW1 ([facility]) Name Value Range Interpretation Code Description Data Anneliese rce(s) Supporting Document(s) URINE CULTURE eCW1 ([facility]) ID Date Data Source UA URINALYSIS 05/01/2020 12:00:00 AM EST eCW1 ([facility]) Name Value Range Interpretation Code Description Data Anneliese rce(s) Supporting Document(s) UA URINALYSIS eCW1 ([facility]) ID Date Data Source LIPID PANEL (CARDIAC RISK) 05/01/2020 12:00:00 AM EST eCW1 ( [facility]) Name Value Range Interpretation Code Description Data Anneliese rce(s) Supporting Document(s) Cholesterol in LDL [Mass/volume] in Serum or Plasma by calculation 165 <100 LDL CHOLESTEROL eCW1 ([facility]) Triglyceride [Mass/volume] in Serum or Plasma by calculation 493 <150 TRIGLYCERIDES LEVEL eCW1 ([facility]) 6.972 <5 CHOLESTEROL RISK RATIO eCW1 ([facility]) Cholesterol [Moles/volume] in Serum or Plasma 251 <200 CHOLESTEROL LEVEL eCW1 ([facility]) Cholesterol in HDL [Moles/volume] in Serum or Plasma 36 >40 HDL CHOLESTEROL eCW1 ([facility]) 215 NON-HDL-C eCW1 ([facility], 1928[facility]1983) ID Date Data Source Comprehensive Metabolic Profile (CMP) 05/01/2020 12:00:00 AM EST eCW1 ([facility]) Name Value Range Interpretation Code Description Data Anneliese rce(s) Supporting Document(s) 15 7-18 BLOOD UREA NITROGEN eCW1 ([facility]) 1.43 0.70-1.30 CREATININE FOR GFR eCW1 ([facility]) > 60.0 >60 GLOMERULAR FILTRATION RATE eCW 1 ([facility]) 115 70-100 GLUCOSE, FASTING eCW1 ([facility]) 138 136-145 SODIUM LEVEL eCW1 ([facility]) 99 98-107 CHLORIDE LEVEL eCW1 ([facility]) 34 21-32 CARBON DIOXIDE LEVEL eCW1 ([facility]) 3.2 3.5-5.1 POTASSIUM SERUM eCW1 ([facility]) 9.3 8.5-10.1 CALCIUM LEVEL eCW1 ([facility]) 61 12-78 ALT/SGPT eCW1 ([facility], 1928[facility]) 25 7-37 AST/SGOT eCW1 ([facility], 1928[facility]) 72 45-117 ALKALINE PHOSPHATASE eCW1 ([facility]) 0.3 0.2-1.0 BILIRUBIN,TOTAL eCW1 ([facility]) 0.9 ALBUMIN/GLOBULIN RATIO eCW1 ([facility]) 7.4 6.4-8.2 TOTAL PROTEIN eCW1 ([facility]) 3.5 3.2-5.2 ALBUMIN eCW1 ([facility], 1928–[facility]) ID Date Data Source [id number] 04/14/2020 12:00:00 AM EST eCW1 ([facility]) Name Value Range Interpretation Code Description Data Anneliese rce(s) Supporting Document(s) Albumin/Creatinine [Mass Ratio] in Urine 467.0 MALB URINE SIEMENS eCW1 ([facility]) Microalbumin/Creatinine [Ratio] in Urine 1056.5 0.0-30.0 HAYDEN/CREAT RATIO eCW1 ([facility]) Microalbumin/Creatinine [Mass Ratio] in Urine 44.2 CREATININE, URINE eCW1 ([facility]) ID Date Data Source [id number] 02/08/2020 12:00:00 AM EDT [facility] Gael ESPINOSA Patient Name: TYLER [id number] Date of : 1980[place] [address] Date of Exam: 02/08/2020#: Fax: [phone] EXAM: CT ABDOMEN & PELVIS WITHOUT CONTRASTCLINICAL INFORMATION: History of renal calculi. Persistent left flankpain.Comparison, multiples, the latest 12/29/2018. Prior exam showed a 4 mmcalculus in the mid-left ureter and a punctate calculus in the left renalcollecting system, mid-pole region.Low dose [address] scanning of the abdomen and pelvis wasobtained without the administration of intravenous contrast.The lung bases are clear.Limited evaluation of the solid intraabdominal organs and gallbladder showno gross abnormalities or significant changes. Limited evaluation of thepancreas and adrenal glands show no gross abnormalities or significantchanges.The calculus seen previous in the mid-left ureter is no longer present.There is no hydronephrosis or hydroureter. There are two punctate leftnephroliths, status quo. There are no right nephroliths. There is noright-sided hydronephrosis or hydroureter. There are no urinary bladdercalcifications. There is no free fluid or free air in the abdomen orpelvis. The bowel loops and the mesenteries are unremarkable andunchanged. The abdominal aorta and paraaortic regions are unremarkable andunchanged.The osseous structures are stable.IMPRESSION:1. Resolved left ureterolith.2. Unchanged punctate left nephroliths.3. Other findings as described above.Accredited by the [employer] in [place].LATANYA Ledezma/Phyllis you for referring KANE GRAF to our office. Electronically Signed - NOLA LOPEZ DO 02/08/20 13:43 Name Value Range Interpretation Code Description Data Anneliese rce(s) Supporting Document(s) Procedure Social History Code Duration Value Status Description Data Source(s ) Smoking 03/24/2021 12:00:00 AM EDT Never Smoked Cigarettes com pleted Never Smoked Cigarettes MEDENT ([facility]) Alcohol intake 02/23/2021 12:00:00 AM EDT Lifetime non-drinker (finding) completed Lifetime non-drinker (finding) [facility] Alcohol intake 11/04/2020 12:00:00 AM EDT Lifetime non-drinker (finding) completed Lifetime non-drinker (finding) [facility] Smoking 09/17/2020 12:00:00 AM EDT Never Smoker completed Never S catarina eCW1 ([facility]) Smoking 09/05/2020 12:00:00 AM EDT Never Smoker completed Never S moker eCW1 ([facility]) Smoking 08/11/2020 12:00:00 AM EST Never Smoker completed Never S moker eCW1 ([facility]) Smoking 08/11/2020 12:00:00 AM EST Never Smoker completed Never S moker eCW1 ([facility]) Smoking 08/11/2020 12:00:00 AM EST Never Smoker completed Never S moker eCW1 ([facility]) Smoking 08/11/2020 12:00:00 AM EST Never Smoker completed Never S moker eCW1 ([facility]) Smoking 08/11/2020 12:00:00 AM EST Never Smoker completed Never S moker eCW1 ([facility]) Smoking 07/03/2020 12:00:00 AM EST Never Smoker completed Never S moker eCW1 ([facility]) Smoking 07/03/2020 12:00:00 AM EST Never Smoker completed Never S moker eCW1 ([facility]) Smoking 07/03/2020 12:00:00 AM EST Never Smoker completed Never S moker eCW1 ([facility]) Smoking 07/03/2020 12:00:00 AM EST Never Smoker completed Never S moker eCW1 ([facility]) Smoking 07/03/2020 12:00:00 AM EST Never Smoker completed Never S moker eCW1 ([facility]) Smoking 07/03/2020 12:00:00 AM EST Never Smoker completed Never S moker eCW1 ([facility]) Smoking 07/03/2020 12:00:00 AM EST Never Smoker completed Never S moker eCW1 ([facility]) Smoking 07/03/2020 12:00:00 AM EST Never Smoker completed Never S moker eCW1 ([facility]) Smoking 07/03/2020 12:00:00 AM EST Never Smoker completed Never S moker eCW1 ([facility]) Alcohol intake 07/01/2020 12:00:00 AM EST Never completed [facility] Smoking 07/01/2020 12:00:00 AM EST Never smoker completed Never s moker [facility] Alcohol intake 06/03/2020 12:00:00 AM EST Never completed [facility] Smoking 06/03/2020 12:00:00 AM EST Never smoker completed Never s moker [facility] Smoking 06/02/2020 12:00:00 AM EST Never Smoker completed Never S moker eCW1 ([facility]) Smoking 06/02/2020 12:00:00 AM EST Never Smoker completed Never S moker eCW1 ([facility]) Smoking 06/02/2020 12:00:00 AM EST Never Smoker completed Never S moker eCW1 ([facility]) Smoking 06/02/2020 12:00:00 AM EST Never Smoker completed Never S moker eCW1 ([facility]) Tobacco use and exposure 05/07/2020 12:00:00 AM EST Current user co mpleted Current user [facility] Smoking 05/07/2020 12:00:00 AM EST Never smoker completed Never s moker [facility] Alcohol intake 05/07/2020 12:00:00 AM EST Never completed [facility] Smoking 05/07/2020 12:00:00 AM EST Never smoker completed Never s moker [facility] Smoking 05/01/2020 12:00:00 AM EST Never Smoker completed Never S moker eCW1 ([facility]) Smoking 05/01/2020 12:00:00 AM EST Never Smoker completed Never S moker eCW1 ([facility]) Smoking 04/10/2020 12:00:00 AM EDT Never Smoker completed Never S moker eCW1 ([facility]) Smoking 04/10/2020 12:00:00 AM EDT Never Smoker completed Never S moker eCW1 ([facility]) Smoking 04/10/2020 12:00:00 AM EDT Never Smoker completed Never S moker eCW1 ([facility]) Smoking 04/10/2020 12:00:00 AM EDT Never Smoker completed Never S moker eCW1 ([facility]) Smoking 04/03/2020 12:00:00 AM EDT Never Smoker completed Never S moker eCW1 ([facility]) Smoking 04/03/2020 12:00:00 AM EDT Never Smoker completed Never S moker eCW1 ([facility]) Smoking 04/03/2020 12:00:00 AM EDT Never Smoker completed Never S moker eCW1 ([facility]) Smoking 04/03/2020 12:00:00 AM EDT Never Smoker completed Never S moker eCW1 ([facility]) Vital Signs ID Date Data Source UNK Name Value Range Interpretation Code Description Data Source(s) Systolic blood pressure 120 mm[Hg] 120 mm[Hg] [facility] ([facility]) Diastolic blood pressure 70 mm[Hg] 70 mm[Hg] [facility] ([facility]) Heart rate 67 /min 67 /min [facility] ([facility]) Oxygen saturation in Arterial blood by Pulse oximetry 98 % 98 % [facility] ([facility]) Body height 75 [in_i] 75 [in_i] [facility] ([facility]) 6'3" Body weight 260.00 [lb_av] 260.00 [lb_av] [facility] Body mass index (BMI) [Ratio] 32.5 kg/m2 32.5 k g/m2 [facility] ([facility]) [place] body weight 196 [lb_av] 196 [lb_av] [facility] T ([facility]) Body weight 117.936 kg 117.936 kg [facility] ([facility]) Body surface area Derived from formula 2.45 m2 2.45 m2 [facility] ([facility]) Systolic blood pressure 160 mm[Hg] 160 mm[Hg] [facility] Diastolic blood pressure 110 mm[Hg] 110 mm[Hg] [facility] Heart rate 68 /min 68 /min [facility] Body height 190.5 cm 190.5 cm [facility] Oxygen saturation in Arterial blood by Pulse oximetry 97 % 97 % [facility] Body mass index (BMI) [Ratio] 33.00 kg/m2 33.00 kg/m2 [facility] Body weight 119.75 kg 119.75 kg [facility] [place] body weight 196 [lb_av] 196 [lb_av] MEDEN T ([facility]) Body weight 119.297 kg 119.297 kg [facility] ([facility]) Body surface area Derived from formula 2.47 m2 2.47 m2 [facility] ([facility]) Systolic blood pressure 142 mm[Hg] 142 mm[Hg] M [facility]ENT ([facility]) Diastolic blood pressure 84 mm[Hg] 84 mm[Hg] [facility] ([facility]) Heart rate 70 /min 70 /min [facility] ([facility]) Oxygen saturation in Arterial blood by Pulse oximetry 98 % 98 % [facility] ([facility]) Body height 75 [in_i] 75 [in_i] MED[facility] ([facility]) 6'3" Body weight 263.00 [lb_av] 263.00 [lb_av] MED[facility] T ([facility]) Body mass index (BMI) [Ratio] 32.9 kg/m2 32.9 k g/m2 [facility] ([facility]) Body weight 254.4 [lb_av] 254.4 [lb_av] eCW1 ([facility]) Body height 74 [in_i] 74 [in_i] eCW1 ([facility]) Body mass index (BMI) [Ratio] 32.66 kg/m2 32.66 kg/m2 eCW1 ([facility]) Heart rate 75 /min 75 /min eCW1 ([facility]) Respiratory rate 18 /min 18 /min eCW1 ([facility]) Body temperature 97.5 [degF] 97.5 [degF] eCW1 ( [facility]) Systolic blood pressure 130 mm[Hg] 130 mm[Hg] e CW1 ([facility]) Diastolic blood pressure 78 mm[Hg] 78 mm[Hg] eCW1 ([facility]) Diastolic blood pressure 70 mm[Hg] 70 mm[Hg] [facility] Systolic blood pressure 136 mm[Hg] 136 mm[Hg] [facility] Oxygen saturation in Arterial blood by Pulse oximetry 98 % 98 % [facility] Heart rate 76 /min 76 /min [facility] Body weight 116.121 kg 116.121 kg [facility] Body mass index (BMI) [Ratio] 32.00 kg/m2 32.00 kg/m2 [facility] Body weight 255 [lb_av] 255 [lb_av] eCW1 ([facility]) Body height 74 [in_i] 74 [in_i] eCW1 ([facility]) Body mass index (BMI) [Ratio] 32.74 kg/m2 32.74 kg/m2 eCW1 ([facility]) Heart rate 88 /min 88 /min eCW1 ([facility]) Respiratory rate 18 /min 18 /min eCW1 ([facility]) Body temperature 97.5 [degF] 97.5 [degF] eCW1 ( [facility]) Systolic blood pressure 156 mm[Hg] 156 mm[Hg] e CW1 ([facility]) Diastolic blood pressure 113 mm[Hg] 113 mm[Hg] eCW1 ([facility]) Body mass index (BMI) [Ratio] 32.99 kg/m2 32.99 kg/m2 eCW1 ([facility]) Body weight 257 [lb_av] 257 [lb_av] eCW1 ([facility]) Body temperature 96.4 [degF] 96.4 [degF] eCW1 ( [facility]) Body height 74 [in_i] 74 [in_i] eCW1 ([facility]) Systolic blood pressure 144 mm[Hg] 144 mm[Hg] e CW1 ([facility]) Diastolic blood pressure 102 mm[Hg] 102 mm[Hg] eCW1 ([facility]) Heart rate 118 /min 118 /min eCW1 ([facility]) Respiratory rate 18 /min 18 /min eCW1 ([facility]) Body weight 254 [lb_av] 254 [lb_av] eCW1 ([facility]) Body height 74 [in_i] 74 [in_i] eCW1 ([facility]) Body mass index (BMI) [Ratio] 32.61 kg/m2 32.61 kg/m2 eCW1 ([facility]) Heart rate 73 /min 73 /min eCW1 ([facility]) Respiratory rate 18 /min 18 /min eCW1 ([facility]) Body temperature 97.4 [degF] 97.4 [degF] eCW1 ( [facility]) Systolic blood pressure 126 mm[Hg] 126 mm[Hg] e CW1 ([facility]) Diastolic blood pressure 78 mm[Hg] 78 mm[Hg] eCW1 ([facility]) Systolic blood pressure 147 mm[Hg] 147 mm[Hg] [facility] Diastolic blood pressure 100 mm[Hg] 100 mm[Hg] [facility] Heart rate 87 /min 87 /min [facility] Body height 190.5 cm 190.5 cm [facility] Body weight 117.482 kg 117.482 kg [facility] Body mass index (BMI) [Ratio] 32.37 kg/m2 32.37 kg/m2 [facility] Oxygen saturation in Arterial blood by Pulse oximetry 98 % 98 % [facility] Body height 75 [in_i] 75 [in_i] [facility] ([facility] 6'3" Body weight 256.38 [lb_av] 256.38 [lb_av] MEDEN T ([facility] ) Heart rate 74 /min 74 /min [facility] ([facility] ) Body weight 116.292 kg 116.292 kg [facility] ([facility]) Body surface area Derived from formula 2.44 m2 2.44 m2 [facility] Body mass index (BMI) [Ratio] 32.0 kg/m2 32.0 k g/m2 [facility] [place] body weight 196 [lb_av] 196 [lb_av] MED[facility] T ([facility]) Systolic blood pressure 171 mm[Hg] 171 mm[Hg] M EDENT ([facility]) Diastolic blood pressure 101 mm[Hg] 101 mm[Hg] [facility] ([facility]) Body height 75 [in_i] 75 [in_i] [facility] ([facility]) 6'3" Body weight 256.38 [lb_av] 256.38 [lb_av] MEDEN T ([facility]) Body mass index (BMI) [Ratio] 32.0 kg/m2 32.0 k g/m2 [facility] ([facility]) [place] body weight 196 [lb_av] 196 [lb_av] MEDEN T ([facility]) Body weight 116.292 kg 116.292 kg [facility] ([facility]) Body surface area Derived from formula 2.44 m2 2.44 m2 [facility] ([facility]) Body temperature 97.7 [degF] 97.7 [degF] [facility] ([facility]) Systolic blood pressure 150 mm[Hg] 150 mm[Hg] [facility] Diastolic blood pressure 100 mm[Hg] 100 mm[Hg] [facility] Heart rate 96 /min 96 /min [facility] Body weight 117.935 kg 117.935 kg [facility] Body mass index (BMI) [Ratio] 32.50 kg/m2 32.50 kg/m2 [facility] Oxygen saturation in Arterial blood by Pulse oximetry 98 % 98 % [facility] Systolic blood pressure 140 mm[Hg] 140 mm[Hg] [facility] Diastolic blood pressure 80 mm[Hg] 80 mm[Hg] [facility] Heart rate 75 /min 75 /min [facility] Body height 190.5 cm 190.5 cm [facility] Body weight 117.482 kg 117.482 kg [facility] Body mass index (BMI) [Ratio] 32.37 kg/m2 32.37 kg/m2 [facility] Oxygen saturation in Arterial blood by Pulse oximetry 98 % 98 % [facility] Body weight 255 [lb_av] 255 [lb_av] eCW1 ([facility]) Body height 74 [in_i] 74 [in_i] eCW1 ([facility]) Body mass index (BMI) [Ratio] 32.74 kg/m2 32.74 kg/m2 [facility] ([facility]) Heart rate 67 /min 67 /min eCW1 ([facility]) Respiratory rate 18 /min 18 /min eCW1 ([facility]) Body temperature 97.1 [degF] 97.1 [degF] W1 ( [facility]) Systolic blood pressure 128 mm[Hg] 128 mm[Hg] e CW1 ([facility]) Diastolic blood pressure 68 mm[Hg] 68 mm[Hg] eCW1 ([facility]) Systolic blood pressure 132 mm[Hg] 132 mm[Hg] [facility] Diastolic blood pressure 78 mm[Hg] 78 mm[Hg] [facility] Heart rate 78 /min 78 /min [facility] Body height 190.5 cm 190.5 cm [facility] Body weight 115.214 kg 115.214 kg [facility] Body mass index (BMI) [Ratio] 31.75 kg/m2 31.75 kg/m2 [facility] Oxygen saturation in Arterial blood by Pulse oximetry 97 % 97 % [facility] Body weight 253 [lb_av] 253 [lb_av] eCW1 ([facility]) Body height 74 [in_i] 74 [in_i] eCW1 ([facility]) Heart rate 85 /min 85 /min eCW1 ([facility]) Body temperature 97.0 [degF] 97.0 [degF] eCW1 ( [facility]) Respiratory rate 18 /min 18 /min eCW1 ([facility]) Body mass index (BMI) [Ratio] 32.48 kg/m2 32.48 kg/m2 eCW1 ([facility]) Systolic blood pressure 178 mm[Hg] 178 mm[Hg] e CW1 ([facility]) Diastolic blood pressure 130 mm[Hg] 130 mm[Hg] eCW1 ([facility]) Systolic blood pressure 145 mm[Hg] 145 mm[Hg] [facility] Diastolic blood pressure 86 mm[Hg] 86 mm[Hg] [facility] Body weight 115.214 kg 115.214 kg [facility] Body mass index (BMI) [Ratio] 31.75 kg/m2 31.75 kg/m2 [facility] Heart rate 78 /min 78 /min [facility] Body height 190.5 cm 190.5 cm [facility] Oxygen saturation in Arterial blood by Pulse oximetry 99 % 99 % [facility] Body temperature 97.1 [degF] 97.1 [degF] [facility] ([facility]) Body weight 261 [lb_av] 261 [lb_av] eCW1 ([facility]) Body height 74 [in_i] 74 [in_i] eCW1 ([facility]) Body mass index (BMI) [Ratio] 33.51 kg/m2 33.51 kg/m2 eCW1 ([facility]) Heart rate 86 /min 86 /min eCW1 ([facility]) Respiratory rate 20 /min 20 /min eCW1 ([facility]) Body temperature 96.4 [degF] 96.4 [degF] eCW1 ( [facility]) Systolic blood pressure 134 mm[Hg] 134 mm[Hg] e CW1 ([facility]) Diastolic blood pressure 84 mm[Hg] 84 mm[Hg] eCW1 ([facility]) Body weight 258.2 [lb_av] 258.2 [lb_av] eCW1 ([facility]) Body height 74 [in_i] 74 [in_i] eCW1 ([facility]) Body mass index (BMI) [Ratio] 33.15 kg/m2 33.15 kg/m2 eCW1 ([facility]) Heart rate 73 /min 73 /min eCW1 ([facility]) Respiratory rate 18 /min 18 /min eCW1 ([facility]) Body temperature 97.1 [degF] 97.1 [degF] eCW1 ( [facility]) Systolic blood pressure 142 mm[Hg] 142 mm[Hg] e CW1 ([facility]) Diastolic blood pressure 82 mm[Hg] 82 mm[Hg] eCW1 ([facility]) Body weight 261 [lb_av] 261 [lb_av] eCW1 ([facility]) Body height 74 [in_i] 74 [in_i] eCW1 ([facility]) Body mass index (BMI) [Ratio] 33.51 kg/m2 33.51 kg/m2 eCW1 ([facility]) Heart rate 80 /min 80 /min eCW1 ([facility]) Respiratory rate 19 /min 19 /min eCW1 ([facility]) Body temperature 96.0 [degF] 96.0 [degF] eCW1 ( [facility]) Systolic blood pressure 176 mm[Hg] 176 mm[Hg] e CW1 ([facility]) Diastolic blood pressure 108 mm[Hg] 108 mm[Hg] eCW1 ([facility]) Body weight 262.4 [lb_av] 262.4 [lb_av] eCW1 ([facility]) Body height 74 [in_i] 74 [in_i] eCW1 ([facility]) Body mass index (BMI) [Ratio] 33.69 kg/m2 33.69 kg/m2 eCW1 ([facility]) Heart rate 85 /min 85 /min eCW1 ([facility]) Respiratory rate 18 /min 18 /min eCW1 ([facility]) Body temperature 96.7 [degF] 96.7 [degF] eCW1 ( [facility]) Systolic blood pressure 144 mm[Hg] 144 mm[Hg] e CW1 ([facility]) Diastolic blood pressure 90 mm[Hg] 90 mm[Hg] eCW1 ([facility]) Patient Treatment Plan of Care Planned Activity Planned Date Details Description Data Source (s) Aspirin 81 MG Delayed Release Oral Tablet 02/23/2021 12:00:00 AM ED T [facility] Lisinopril 20 MG Oral Tablet 02/23/2021 12:00:00 AM EDT [facility] Lisinopril 40 MG Oral Tablet 11/04/2020 12:00:00 AM EDT [facility] Rosuvastatin calcium 10 MG Oral Tablet 09/22/2020 12:00:00 AM EDT [facility] Docusate Sodium 50 MG / sennosides, CUSTODIAL 8.6 MG Oral Ta blet [SENOKOT-S] 09/05/2020 12:00:00 AM EDT eCW1 ([facility]) Docusate Sodium 50 MG / sennosides, CUSTODIAL 8.6 MG Oral Ta blet [SENOKOT-S] 09/05/2020 12:00:00 AM EDT eCW1 ([facility]) Docusate Sodium 50 MG / sennosides, CUSTODIAL 8.6 MG Oral Ta blet [SENOKOT-S] 09/05/2020 12:00:00 AM EDT eCW1 ([facility]) Rosuvastatin calcium 10 MG Oral Tablet 09/01/2020 12:00:00 AM EDT [facility] Cephalexin 500 MG Oral Capsule 08/11/2020 12:00:00 AM EST eCW1 ([facility]) Cephalexin 500 MG Oral Capsule 08/11/2020 12:00:00 AM EST eCW1 ([facility]) Cephalexin 500 MG Oral Capsule 08/11/2020 12:00:00 AM EST eCW1 ([facility]) Cephalexin 500 MG Oral Capsule 08/11/2020 12:00:00 AM EST eCW1 ([facility]) Cephalexin 500 MG Oral Capsule 08/11/2020 12:00:00 AM EST eCW1 ([facility]) Hydrochlorothiazide 25 MG Oral Tablet 08/07/2020 12:00:00 AM EST [facility] Rosuvastatin calcium 10 MG Oral Tablet 07/01/2020 12:00:00 AM EST [facility] Polyvinyl Alcohol 0.014 ML/ML Ophthalmic Solution 06/17/2020 12: 00:00 AM EST [facility] Lidocaine 5 % 06/12/2020 12:00:00 AM EST eCW1 ([facility]) Lidocaine 5 % 06/12/2020 12:00:00 AM EST eCW1 ([facility]) Lidocaine 5 % 06/12/2020 12:00:00 AM EST eCW1 ([facility]) Lidocaine 5 % 06/12/2020 12:00:00 AM EST eCW1 ([facility]) Rosuvastatin calcium 10 MG Oral Tablet 06/03/2020 12:00:00 AM EST [facility] 24 HR Diltiazem Hydrochloride 180 MG Extended Release Oral Capsule 05/22/2020 12:00:00 AM EST [facility] Lisinopril 40 MG Oral Tablet 05/22/2020 12:00:00 AM EST [facility] Lisinopril 30 MG Oral Tablet 05/13/2020 12:00:00 AM EST eCW1 ([facility]) 24 HR Diltiazem Hydrochloride 180 MG Extended Release Oral Capsule 05/07/2020 12:00:00 AM EST [facility] atorvastatin 40 MG Oral Tablet 05/01/2020 12:00:00 AM EST eCW1 ([facility]) atorvastatin 40 MG Oral Tablet 05/01/2020 12:00:00 AM EST eCW1 ([facility]) Lisinopril 20 MG Oral Tablet 05/01/2020 12:00:00 AM EST eCW1 ([facility]) atorvastatin 40 MG Oral Tablet 05/01/2020 12:00:00 AM EST eCW1 ([facility]) Lisinopril 20 MG Oral Tablet 05/01/2020 12:00:00 AM EST eCW1 ([facility]) Lisinopril 10 MG Oral Tablet 04/22/2020 12:00:00 AM EST [facility] Lisinopril 10 MG Oral Tablet 04/21/2020 12:00:00 AM EST eCW1 ([facility]) Isosorbide Dinitrate 30 MG Oral Tablet 04/21/2020 12:00:00 AM EST eCW1 ([facility]) Lisinopril 10 MG Oral Tablet 04/21/2020 12:00:00 AM EST eCW1 ([facility]) Isosorbide Dinitrate 30 MG Oral Tablet 04/21/2020 12:00:00 AM EST eCW1 ([facility]) Isosorbide Dinitrate 30 MG Oral Tablet 04/21/2020 12:00:00 AM EST eCW1 ([facility]) Isosorbide Dinitrate 30 MG Oral Tablet 04/21/2020 12:00:00 AM EST eCW1 ([facility]) Nitroglycerin 0.3 MG Sublingual Tablet 04/09/2020 12:00:00 AM EDT [facility] Aspirin 81 MG Delayed Release Oral Tablet 04/09/2020 12:00:00 AM ED T [facility] Hydrochlorothiazide 25 MG Oral Tablet 04/09/2020 12:00:00 AM EDT [facility] atorvastatin 40 MG Oral Tablet 04/08/2020 12:00:00 AM EDT [facility] Nitroglycerin 0.3 MG Sublingual Tablet 04/08/2020 12:00:00 AM EDT eCW1 ([facility]) Nitroglycerin 0.3 MG Sublingual Tablet 04/08/2020 12:00:00 AM EDT eCW1 ([facility]) Nitroglycerin 0.3 MG Sublingual Tablet 04/08/2020 12:00:00 AM EDT eCW1 ([facility]) Nitroglycerin 0.3 MG Sublingual Tablet 04/08/2020 12:00:00 AM EDT eCW1 ([facility]) Nitroglycerin 0.3 MG Sublingual Tablet 04/08/2020 12:00:00 AM EDT eCW1 ([facility]) pregabalin 150 MG Oral Capsule 04/03/2020 12:00:00 AM EDT [facility] meloxicam 15 MG Oral Tablet 04/03/2020 12:00:00 AM EDT [facility] Aspirin 81 MG Delayed Release Oral Tablet 04/03/2020 12:00:00 AM ED T eCW1 ([facility]) atorvastatin 80 MG Oral Tablet 04/03/2020 12:00:00 AM EDT eCW1 ([facility]) Aspirin 81 MG Delayed Release Oral Tablet 04/03/2020 12:00:00 AM ED T eCW1 ([facility]) Hydrochlorothiazide 25 MG Oral Tablet 04/03/2020 12:00:00 AM EDT eCW1 ([facility]) Aspirin 81 MG Delayed Release Oral Tablet 04/03/2020 12:00:00 AM ED T eCW1 ([facility]) atorvastatin 80 MG Oral Tablet 04/03/2020 12:00:00 AM EDT eCW1 ([facility]) Hydrochlorothiazide 25 MG Oral Tablet 04/03/2020 12:00:00 AM EDT eCW1 ([facility]) Aspirin 81 MG Delayed Release Oral Tablet 04/03/2020 12:00:00 AM ED T eCW1 ([facility]) atorvastatin 80 MG Oral Tablet 04/03/2020 12:00:00 AM EDT eCW1 ([facility]) Hydrochlorothiazide 25 MG Oral Tablet 04/03/2020 12:00:00 AM EDT eCW1 ([facility]) Aspirin 81 MG Delayed Release Oral Tablet 04/03/2020 12:00:00 AM ED T eCW1 ([facility]) atorvastatin 80 MG Oral Tablet 04/03/2020 12:00:00 AM EDT eCW1 ([facility]) Hydrochlorothiazide 25 MG Oral Tablet 04/03/2020 12:00:00 AM EDT eCW1 ([facility]) atorvastatin 80 MG Oral Tablet 04/03/2020 12:00:00 AM EDT eCW1 ([facility]) Clonidine Hydrochloride 0.1 MG Oral Tablet 04/03/2020 12:00:00 AM E DT eCW1 ([facility]) Hydrochlorothiazide 25 MG Oral Tablet 04/03/2020 12:00:00 AM EDT eCW1 ([facility]) Isosorbide Dinitrate 30 MG Oral Tablet 04/03/2020 12:00:00 AM EDT eCW1 ([facility]) Aspirin 81 MG Delayed Release Oral Tablet 04/03/2020 12:00:00 AM ED T eCW1 ([facility]) atorvastatin 80 MG Oral Tablet 04/03/2020 12:00:00 AM EDT eCW1 ([facility]) Clonidine Hydrochloride 0.1 MG Oral Tablet 04/03/2020 12:00:00 AM E DT eCW1 ([facility]) Hydrochlorothiazide 25 MG Oral Tablet 04/03/2020 12:00:00 AM EDT eCW1 ([facility]) Isosorbide Dinitrate 30 MG Oral Tablet 04/03/2020 12:00:00 AM EDT eCW1 ([facility]) Aspirin 81 MG Delayed Release Oral Tablet 04/03/2020 12:00:00 AM ED T eCW1 ([facility]) atorvastatin 80 MG Oral Tablet 04/03/2020 12:00:00 AM EDT eCW1 ([facility]) Clonidine Hydrochloride 0.1 MG Oral Tablet 04/03/2020 12:00:00 AM E DT eCW1 ([facility]) Hydrochlorothiazide 25 MG Oral Tablet 04/03/2020 12:00:00 AM EDT eCW1 ([facility]) Isosorbide Dinitrate 30 MG Oral Tablet 04/03/2020 12:00:00 AM EDT eCW1 ([facility]) Aspirin 81 MG Delayed Release Oral Tablet 04/03/2020 12:00:00 AM ED T eCW1 ([facility]) Aspirin 81 MG Delayed Release Oral Tablet 04/03/2020 12:00:00 AM ED T eCW1 ([facility]) Hydrochlorothiazide 25 MG Oral Tablet 04/03/2020 12:00:00 AM EDT eCW1 ([facility]) Aspirin 81 MG Delayed Release Oral Tablet 04/03/2020 12:00:00 AM ED T eCW1 ([facility]) Hydrochlorothiazide 25 MG Oral Tablet 04/03/2020 12:00:00 AM EDT eCW1 ([facility]) albuterol (PROVENTIL HFA;VENTOLIN HFA) 108 (90 Base) M CG/ACT inhaler 03/27/2020 12:00:00 AM EDT [facility] Albuterol Sulfate HFA 108 (90 Base) MCG/ACT 03/27/2020 12:00:00 AM EDT eCW1 ([facility]) Albuterol Sulfate HFA 108 (90 Base) MCG/ACT 03/27/2020 12:00:00 AM EDT eCW1 ([facility]) Albuterol Sulfate HFA 108 (90 Base) MCG/ACT 03/27/2020 12:00:00 AM EDT eCW1 ([facility]) Omeprazole 20 MG Delayed Release Oral Capsule 02/07/2020 12:00:00 A M EDT [facility] Lisinopril 20 MG Oral Tablet [facility] Diltiazem Hydrochloride 30 MG Oral Tablet [facility]
--- OUTSIDE RECORDS SUMMARY | 2021-03-27 09:06 | CCD ---
Author Author [facility] Organization [facility] Address Unknown Phone Unavailable Support Name Relationship Address Phone HOMARANNEMA Next Of Kin [address] [place] [address] ST Next Of Kin Unknown Unavailable ALLIED [facility] Next Of Kin [address] [facility] [address] [place] [address] JOYA GRAF Next Of [facility] [address] [place] [address] [facility] [place] [address] SECURITY Next Of [address] [address] ICU SECURITY PRIVATE INVESTG Next Of [facility] [address] [place] [address] ICU SECURITY PRIVATE INVESTGATION Next Of [facility] [address] [place] [address] AUGUSTIN ODONNELL Next Of [facility] [address] [place] [address] Dille DDS, Noni Next Of [facility] [address] [place], [place] [id number] Dille DDS, Noni Next Of [facility] [address] [place] [address] [employer] Next Of [address] [address] MARELY GRAF Next Of [facility] [address] [place] [address] UE Next Of Kin Unknown Unavailable SECURITAS Next Of Kin [address] [place] [address] SECRURITAS Next Of Kin [address] [facility] [place] [address] ТАТЬЯНА DONAHUE Next Of Kin [address] [place] [address] MARY DONAHUE Next Of Kin [address] [place] [address] Augustin Odonnell [address] [place] [address] [phone] Care Team Providers Care Command Post Craftsman Name Role Phone HANK, HUY RICK TELEVISION ANCHOR-C Unavailable Unavailable HANK, HUY RICK TELEVISION ANCHOR-C Unavailable Unavailable HANK, HUY RICK TELEVISION ANCHOR-C Unavailable Unavailable HANK, HUY RICK TELEVISION ANCHOR-C Unavailable Unavailable HANK, HUY RICK TELEVISION ANCHOR-C Unavailable Unavailable HANK, HUY RICK TELEVISION ANCHOR-C Unavailable Unavailable HANK, HUY RICK TELEVISION ANCHOR-C Unavailable Unavailable HANK, HUY RICK TELEVISION ANCHOR-C Unavailable Unavailable HANK, HUY RICK TELEVISION ANCHOR-C Unavailable Unavailable HANK, HUY RICK TELEVISION ANCHOR-C Unavailable Unavailable HANK, HUY RICK TELEVISION ANCHOR-C Unavailable Unavailable HANK, HUY RICK TELEVISION ANCHOR-C Unavailable Unavailable HANK, HUY RICK TELEVISION ANCHOR-C Unavailable Unavailable HANK, HUY RICK TELEVISION ANCHOR-C Unavailable Unavailable HANK, HUY RICK TELEVISION ANCHOR-C Unavailable Unavailable HANK, HUY RICK TELEVISION ANCHOR-C Unavailable Unavailable HANK, HUY RICK TELEVISION ANCHOR-C Unavailable Unavailable Jose Maria, V PASQUALE PA-C Unavailable Unavailable Silsbee, V PASQUALE PA-C Unavailable Unavailable Silsbee, V PASQUALE PA-C Unavailable Unavailable Jose Maria, V PASQUALE PA-C Unavailable Unavailable Silsbee, V PASQUALE PA-C Unavailable Unavailable Silsbee, V PASQUALE PA-C Unavailable Unavailable Jose Maria, V PASQUALE PA-C Unavailable Unavailable Silsbee, V PASQUALE PA-C Unavailable Unavailable Jose Maria, V PASQUALE PA-C Unavailable Unavailable Jose Maria, V PASQUALE PA-C Unavailable Unavailable Silsbee, V PASQUALE PA-C Unavailable Unavailable Silsbee, V PASQUALE PA-C Unavailable Unavailable Silsbee, V PASQUALE PA-C Unavailable Unavailable Silsbee, V PASQUALE PA-C Unavailable Unavailable Perez, L [...] is protected by Article 27-F of the [facility] Public Health law. If you continue you may have access to information: Regarding HIV / AIDS; Provided by facilities licensed or operated by the [facility] Office of Mental Health; or Provided by the [facility] Office for People With Developmental Disabilities. If such information is present, then the following [facility] mandated warning applies: This information has [...] law may result in a fine or long term sentence or both. A general authorization for the release of medical or other information is NOT sufficient authorization for further disc losure. Allergies and Adverse Reactions Type Description Substance Reaction Status Data Source(s ) Propensity to adverse reactions TAMSULOSIN tamsulosin Shortness Of Breath High Active [facility] High Propensity to adverse reactions OXYCODONE Oxycodone Acti ve [facility] Propensity to adverse reactions METHOCARBAMOL Methocarbamol Palpita tions Low Active [facility] Low Family History Family Member Name Family Member Gender Family Member Status Date o f Status Description Data Source(s) Unknown Male Problem MEDENT ([facility] ) Encounters Encounter Providers Location Date Indications Data Source(s ) Outpatient Attender: RICK Hand/Dearborn/Ivan/R eindl 03/24/2021 03:00:00 PM EDT MED[facility] ([facility] ) Outpatient Attender: PASQUALE BREWER-SJP.RACHEL 12:00:00 AM EDT - 02/23/2021 07:57:20 AM EDT [facility] Outpatient Attender: RICK Hand/Dearborn/Ivan/R eindl 02/20/2021 08:00:00 AM EDT MED[facility] ([facility], ) Outpatient Referrer: PASQUALE LAWSON.RACHEL 12:00:00 AM EDT [facility] [place] [address] [facility] [address] 12/03/2020 12:00:00 AM EDT eCW1 ([facility]) Unknown [address] [facility] [address] 11/13/2020 12:00:00 AM EDT eCW1 ([facility]) Outpatient Referrer: PASQUALE LEECT-SOHAP.SYR 12:00:00 AM EDT [facility] [address] [facility] [address] 11/06/2020 12:00:00 AM EDT eCW1 ([facility]) Outpatient Attender: PASQUALE BREWER-SJP.RACHEL 03:10:04 PM EDT - 11/04/2020 04:32:54 PM EDT [facility] Unknown [address] [facility] [address] 10/08/2020 12:00:00 AM EDT eCW1 ([facility]) [place] [address] [facility] [address] 09/17/2020 12:00:00 AM EDT eCW1 ([facility]) Unknown [address] [facility] [address] 09/12/2020 12:00:00 AM EDT eCW1 ([facility]) [place] [address] [facility] [address] 09/05/2020 12:00:00 AM EDT eCW1 ([facility]) Unknown [address] [facility] [address] 08/27/2020 12:00:00 AM EDT eCW1 ([facility]) Unknown [address] [facility] [address] 08/26/2020 12:00:00 AM EDT eCW1 ([facility]) [place] [address] [facility] [address] 08/14/2020 12:00:00 AM EST [facility] [place] [address] [facility] [address] 08/11/2020 12:00:00 AM EST [facility]) Outpatient Attender: PASQUALE BREWER-OSMAN 12:00:00 AM EST [facility] Unknown [address] [facility] [address] 08/07/2020 12:00:00 AM EST [facility]CW1 ([facility]) [place] [address] [facility] [address] 08/01/2020 12:00:00 AM EST [facility]CW[facility] ([facility] [place] [address] [facility] [address] 08/01/2020 12:00:00 AM EST eCW1 ([facility]) [place] [address] [facility] [address] 07/31/2020 12:00:00 AM EST eCW1 ([facility]) Outpatient Attender: ELEANOR ESPINOSA Physical Therapy 07/14 01:30:00 PM EST MED[facility] ([facility]) Outpatient Attender: Marla Hand/Roque/Ivan/Amanda read 07/22/2020 10:00:00 AM EST [facility] ([facility]) Outpatient Attender: ELEANOR ESPINOSA Physical Therapy 06/14 01:45:00 PM EST [facility] ([facility]) Outpatient Attender: PASQUALE BREWER-SJP.RACHEL 12:00:00 AM EST - 07/01/2020 11:21:21 AM EST [facility] [place] [address] [facility] [address] 06/12/2020 12:00:00 AM EST eCW1 ([facility]) Unknown [address] [facility] [address] 06/11/2020 12:00:00 AM EST eCW1 ([facility]) Unknown [address] [facility] [address] 06/09/2020 12:00:00 AM EST eCW1 ([facility]) Outpatient Attender: PASQUALE BREWER-SJP.RACHEL 12:00:00 AM EST - 06/03/2020 04:22:22 PM EST [facility] Out[place] [address] [facility] [address] 06/02/2020 12:00:00 AM EST eCW1 ([facility]) OFFICE OUTPATIENT VISIT 15 MINUTES Attender: ELEANOR ESPINOSA Ph ysical Therapy 05/28/2020 12:30:00 PM EST MED[facility] ([facility]) Outpatient Attender: PASQUALE BREWER-SJP.RACHEL 03/2020 12:00:00 AM EST - 05/22/2020 04:45:49 PM EST [facility] [place] [address] [facility] [address] 05/13/2020 12:00:00 AM EST eCW1 ([facility]) Outpatient Attender: Tata LEERACHEL-SJP.RACHEL 04/14 12:00:00 AM EST - 05/07/2020 03:53:02 PM EST [facility] OFFICE OUTPATIENT VISIT 15 MINUTES Attender: ELEANOR ESPINOSA Ph ysical Therapy 05/06/2020 02:45:00 PM EST [facility] ([facility]) [place] [address] [facility] [address] 05/01/2020 12:00:00 AM EST eCW1 ([facility]) Unknown [address] [facility] [address] 04/22/2020 12:00:00 AM EST eCW1 ([facility]) [place] [address] [facility] [address] 04/21/2020 12:00:00 AM EST eCW1 ([facility]) [place] [address] [facility] [address] 04/21/2020 12:00:00 AM EST eCW1 ([facility]) Outpatient [address] [facility] [address] 04/10/2020 12:00:00 AM EDT eCW1 ([facility]) Unknown [address] [facility] [address] 04/09/2020 12:00:00 AM EDT eCW1 ([facility]) Unknown [address] [facility] [address] 04/08/2020 12:00:00 AM EDT eCW1 ([facility]) Unknown [address] [facility] [address] 04/05/2020 12:00:00 AM EDT eCW1 ([facility]) [place] [address] [facility] [address] 04/04/2020 12:00:00 AM EDT eCW1 ([facility]) Outpatient [address] [facility] [address] 04/03/2020 12:00:00 AM EDT eCW1 ([facility]) Outpatient [address] [facility] [address] 03/27/2020 12:00:00 AM EDT eCW1 ([facility]) OFFICE OUTPATIENT VISIT 15 MINUTES Attender: ELEANOR ESPINOSA Ph ysical Therapy 03/25/2020 11:00:00 AM EDT MED[facility] ([facility]) Immunizations Vaccine Date Status Description Data Source(s) INFLUENZA VIRUS VACCINE QUADRIVALENT 2019- (6 MOS AN D UP) 02/28/2020 12:00:00 AM EDT completed [facility] Medications Medication Brand Name Start Date Product [...] TABLET BY MOUTH EVERY DAY SOLD: 03/04/2021 [facility] Lisinopril 20 MG Oral Tablet lisinopril (PRINIVIL,ZEST RIL) 20 MG tablet lisinopril (PRINIVIL,ZESTRIL) 20 MG tablet 02/23/2021 12:00:00 AM EDT 20 mg Oral active Take 1 tablet (20 mg total) by mouth daily [facility] Aspirin 81 MG Delayed Release Oral Table t SM Aspirin Adult Low Strength 81 MG EC tablet SM Aspirin Adult Low Strength 81 MG EC tablet 02/23/2021 12: 00:00 AM EDT 81 mg Oral active Take 1 tablet (8 1 mg total) by mouth daily [facility] 20 mg 02/23/2021 12:00:00 AM EDT tablet [...] ONE TABLET BY MOUTH EVERY D AY [facility] Rosuvastatin calcium 10 MG Oral Tablet ROSUVASTATIN [...] (10 mg total) by m outh nightly [facility] 8.6-50 mg 09/06/2020 12:00:00 AM EDT tablet 30 TAKE ONE TABLET BY MOUTH EVERY EVENING NEEDED TAKE ONE TABLET BY MOUTH EVERY EVENING NEEDED SOLD: 09/06/2020 [facility] Docusate Sodium 50 MG / sennosides, MCFP 8.6 MG Oral Tablet [SENOKOT-S] Senokot S 8.6-50 MG Senokot S 8.6-50 MG 09/05/2020 12:00:00 AM EDT 1 .0 {tablet_in_the_evening_as_needed} active Senokot S 8.6-50 MG eCW1 ([facility]) Docusate Sodium 50 MG / sennosides, MCFP 8.6 MG Oral Tablet [SENOKOT-S] Senokot S 8.6-50 MG Senokot S 8.6-50 MG 09/05/2020 12:00:00 AM EDT 1 .0 {tablet_in_the_evening_as_needed} active Senokot S 8.6-50 MG eCW1 ([facility]) Docusate Sodium 50 MG / sennosides, MCFP 8.6 MG Oral Tablet [SENOKOT-S] Senokot S 8.6-50 MG Senokot S 8.6-50 MG 09/05/2020 12:00:00 AM EDT 1 .0 {tablet_in_the_evening_as_needed} active Senokot S 8.6-50 MG eCW1 ([facility]) Docusate Sodium 50 MG / sennosides, MCFP 8.6 MG Oral Tablet [SENOKOT-S] Senokot S 8.6-50 MG Senokot S 8.6-50 MG 09/05/2020 12:00:00 AM EDT 1 .0 {tablet_in_the_evening_as_needed} active Senokot S 8.6-50 MG eCW1 ([facility]) Docusate Sodium 50 MG / sennosides, MCFP 8.6 MG Oral Tablet [SENOKOT-S] Senokot S 8.6-50 MG Senokot S 8.6-50 MG 09/05/2020 12:00:00 AM EDT 1 .0 {tablet_in_the_evening_as_needed} active Senokot S 8.6-50 MG eCW1 ([facility]) Docusate Sodium 50 MG / sennosides, MCFP 8.6 MG Oral Tablet [SENOKOT-S] Senokot S 8.6-50 MG Senokot S 8.6-50 MG 09/05/2020 12:00:00 AM EDT 1 .0 {tablet_in_the_evening_as_needed} active Senokot S 8.6-50 MG eCW1 ([facility]) Docusate Sodium 50 MG / sennosides, MCFP 8.6 MG Oral Tablet [SENOKOT-S] Senokot S 8.6-50 MG Senokot S 8.6-50 MG 09/05/2020 12:00:00 AM EDT 1 .0 {tablet_in_the_evening_as_needed} active Senokot S 8.6-50 MG eCW1 ([facility]) Rosuvastatin calcium 10 MG Oral Tablet rosuvastatin (C RESTOR) 10 MG tablet rosuvastatin (CRESTOR) 10 MG tablet 09/01/2020 12:00:00 AM EDT 10 mg Oral aborted Take 1 tablet (10 mg total) by m outh nightly [facility] Rosuvastatin calcium 10 MG Oral Tablet ROSUVASTATIN CALCIUM 09/01/2020 12:00:00 AM EDT tablet 30 TAKE ONE TABLET BY MOUTH NIG HTLY TAKE ONE TABLET BY MOUTH NIGHTLY SOLD: 09/01/2020 [facility] Cephalexin 500 MG Oral Capsule Cephalexin 500 MG 08/11/2020 12:00:00 AM EST active Cephalexin 500 MG eC W1 ([facility]) Cephalexin 500 MG Oral Capsule Cephalexin 500 MG 08/11/2020 12:00:00 AM EST suspended Cephalexin 500 MG eC W1 ([facility]) Cephalexin 500 MG Oral Capsule Cephalexin 500 MG 08/11/2020 12:00:00 AM EST active Cephalexin 500 MG eC W1 ([facility]) Cephalexin 500 MG Oral Capsule Cephalexin 500 MG 08/11/2020 12:00:00 AM EST suspended Cephalexin 500 MG eC W1 ([facility]) Cephalexin 500 MG Oral Capsule Cephalexin 500 MG 08/11/2020 12:00:00 AM EST suspended Cephalexin 500 MG eC W1 ([facility]) Cephalexin 500 MG Oral Capsule Cephalexin 500 MG 08/11/2020 12:00:00 AM EST active Cephalexin 500 MG eC W1 ([facility]) Cephalexin 500 MG Oral Capsule Cephalexin 500 MG 08/11/2020 12:00:00 AM EST suspended Cephalexin 500 MG eC W1 ([facility]) Cephalexin 500 MG Oral Capsule Cephalexin 500 MG 08/11/2020 12:00:00 AM EST suspended Cephalexin 500 MG eC W1 ([facility]) Cephalexin 500 MG Oral Capsule CEPHALEXIN 08/11/2020 12:00:00 AM EST capsule 1 TAKE ONE CAPSULE BY MOUTH ONE HOUR PRIOR TO CYSTOSCOPY TAKE ONE CAPSULE BY MOUTH ONE HOUR PRIOR TO CYSTOSCOPY SOLD: 08/11/2020 [facility] Cephalexin 500 MG Oral Capsule Cephalexin 500 MG 08/11/2020 12:00:00 AM EST suspended Cephalexin 500 MG eC W1 ([facility]) Cephalexin 500 MG Oral Capsule Cephalexin 500 MG 08/11/2020 12:00:00 AM EST suspended Cephalexin 500 MG eC W1 ([facility]) Cephalexin 500 MG Oral Capsule Cephalexin 500 MG 08/11/2020 12:00:00 AM EST active Cephalexin 500 MG eC W1 ([facility]) Cephalexin 500 MG Oral Capsule Cephalexin 500 MG 08/11/2020 12:00:00 AM EST active Cephalexin 500 MG eC W1 ([facility]) 25 mg 08/08/2020 12:00:00 AM EST tablet 30 TAKE ONE TABLET BY MOUTH EVERY DAY TAKE ONE TABLET BY MOUTH EVERY DAY SOLD: 08/11/2020 [facility] Hydrochlorothiazide 25 MG Oral Tablet hy drochlorothiazide (HYDRODIURIL) 25 MG tablet hydrochlorothiazide (HYDRODIURIL) 25 MG tablet 12:00:00 AM EST 25 mg Oral active Take 1 tablet (25 mg total) by mouth daily [facility] 81 mg 08/01/2020 12:00:00 AM EST tablet,delayed [...] BY MOUTH EVERY DAY SOLD: 12/23/2020 [facility] Rosuvastatin calcium 10 MG Oral Tablet rosuvastatin (C RESTOR) 10 MG tablet rosuvastatin (CRESTOR) 10 MG tablet 07/01/2020 12:00:00 AM EST 10 mg Oral active Take 1 tablet (10 mg total) by m outh nightly [facility] Rosuvastatin calcium 10 MG Oral Tablet ROSUVASTATIN [...] IN EACH EYE NEEDED SOLD: 06/23/2020 [facility] Polyvinyl Alcohol 0.014 ML/ML Ophthalmic Solution ARTIFICIAL TEARS 1.4 % ophthalmic solution ARTIFICIAL TEARS 1.4 % ophthalmic solution 06/17/2020 12:00:00 AM EST active [facility] Lidocaine 5 % Lidocaine 5 % 06/12/2020 12:00:00 AM EST suspended Lidocaine 5 % eCW1 ([facility]) Lidocaine 5 % Lidocaine 5 % 06/12/2020 12:00:00 AM EST suspended Lidocaine 5 % eCW1 ([facility]) Lidocaine 5 % Lidocaine 5 % 06/12/2020 12:00:00 AM EST suspended Lidocaine 5 % eCW1 ([facility]) Lidocaine 5 % Lidocaine 5 % 06/12/2020 12:00:00 AM EST suspended Lidocaine 5 % eCW1 ([facility]) Lidocaine 5 % Lidocaine 5 % 06/12/2020 12:00:00 AM EST suspended Lidocaine 5 % eCW1 ([facility]) Lidocaine 5 % Lidocaine 5 % 06/12/2020 12:00:00 AM EST active Lidocaine 5 % eCW1 ([facility]) Lidocaine 5 % Lidocaine 5 % 06/12/2020 12:00:00 AM EST suspended Lidocaine 5 % eCW1 ([facility]) Lidocaine 5 % Lidocaine 5 % 06/12/2020 12:00:00 AM EST suspended Lidocaine 5 % eCW1 ([facility]) Lidocaine 5 % Lidocaine 5 % 06/12/2020 12:00:00 AM EST suspended Lidocaine 5 % eCW1 ([facility]) Lidocaine 5 % Lidocaine 5 % 06/12/2020 12:00:00 AM EST suspended Lidocaine 5 % eCW1 ([facility]) Lidocaine 5 % Lidocaine 5 % 06/12/2020 12:00:00 AM EST suspended Lidocaine 5 % eCW1 ([facility]) Lidocaine 5 % Lidocaine 5 % 06/12/2020 12:00:00 AM EST suspended Lidocaine 5 % eCW1 ([facility]) Lidocaine 5 % Lidocaine 5 % 06/12/2020 12:00:00 AM EST suspended Lidocaine 5 % eCW1 ([facility]) Lidocaine 5 % Lidocaine 5 % 06/12/2020 12:00:00 AM EST suspended Lidocaine 5 % eCW1 ([facility]) Lidocaine 5 % Lidocaine 5 % 06/12/2020 12:00:00 AM EST active Lidocaine 5 % eCW1 ([facility]) Lidocaine 5 % Lidocaine 5 % 06/12/2020 12:00:00 AM EST suspended Lidocaine 5 % eCW1 ([facility]) Lidocaine 5 % Lidocaine 5 % 06/12/2020 12:00:00 AM EST active Lidocaine 5 % eCW1 ([facility]) Lidocaine 5 % Lidocaine 5 % 06/12/2020 12:00:00 AM EST suspended Lidocaine 5 % eCW1 ([facility]) Lidocaine 5 % Lidocaine 5 % 06/12/2020 12:00:00 AM EST suspended Lidocaine 5 % eCW1 ([facility]) Lidocaine 5 % Lidocaine 5 % 06/12/2020 12:00:00 AM EST active Lidocaine 5 % eCW1 ([facility]) Rosuvastatin calcium 10 MG Oral Tablet rosuvastatin (C RESTOR) 10 MG tablet rosuvastatin (CRESTOR) 10 MG tablet 06/03/2020 12:00:00 AM EST 10 mg Oral aborted Take 1 tablet (10 mg total) by m outh nightly [facility] 10 mg 06/03/2020 12:00:00 AM EST tablet [...] tablet (40 mg total) by mouth daily [facility] 24 HR Diltiazem Hydrochloride 180 MG Ext ended Release Oral Capsule diltiazem (CARDIZEM CD) 180 MG 24 hr capsule diltiazem (CARDIZEM CD) 180 MG 24 hr capsule 05/22/2020 12:00:00 AM EST 180 mg Oral active Take 1 capsule (180 mg total) by mouth daily [facility] Lisinopril 30 MG Oral Tablet Lisinopril 30 MG 05/13/2020 12:00:00 A M EST 1.0 {tablet} suspended Lisinopril 30 MG eCW1 ([facility]) Lisinopril 30 MG Oral Tablet Lisinopril 30 MG 05/13/2020 12:00:00 A M EST 1.0 {tablet} active Lisinopril 30 MG eCW1 ( [facility]) Lisinopril 30 MG Oral Tablet Lisinopril 30 MG 05/13/2020 12:00:00 A M EST 1.0 {tablet} suspended Lisinopril 30 MG eCW1 ([facility]) Lisinopril 30 MG Oral Tablet Lisinopril 30 MG 05/13/2020 12:00:00 A M EST 1.0 {tablet} suspended Lisinopril 30 MG eCW1 ([facility]) Lisinopril 30 MG Oral Tablet Lisinopril 30 MG 05/13/2020 12:00:00 A M EST 1.0 {tablet} suspended Lisinopril 30 MG eCW1 ([facility]) Lisinopril 30 MG Oral Tablet Lisinopril 30 MG 05/13/2020 12:00:00 A M EST 1.0 {tablet} active Lisinopril 30 MG eCW1 ( [facility]) Lisinopril 30 MG Oral Tablet Lisinopril 30 MG 05/13/2020 12:00:00 A M EST 1.0 {tablet} suspended Lisinopril 30 MG eCW1 ([facility]) Lisinopril 30 MG Oral Tablet Lisinopril 30 MG 05/13/2020 12:00:00 A M EST 1.0 {tablet} active Lisinopril 30 MG eCW1 ( [facility]) Lisinopril 30 MG Oral Tablet Lisinopril 30 MG 05/13/2020 12:00:00 A M EST 1.0 {tablet} suspended Lisinopril 30 MG eCW1 ([facility]) Lisinopril 30 MG Oral Tablet Lisinopril 30 MG 05/13/2020 12:00:00 A M EST 1.0 {tablet} active Lisinopril 30 MG eCW1 ( [facility]) Lisinopril 30 MG Oral Tablet Lisinopril 30 MG 05/13/2020 12:00:00 A M EST 1.0 {tablet} suspended Lisinopril 30 MG eCW1 ([facility]) Lisinopril 30 MG Oral Tablet Lisinopril 30 MG 05/13/2020 12:00:00 A M EST 1.0 {tablet} suspended Lisinopril 30 MG eCW1 ([facility]) Lisinopril 30 MG Oral Tablet Lisinopril 30 MG 05/13/2020 12:00:00 A M EST 1.0 {tablet} suspended Lisinopril 30 MG eCW1 ([facility]) Lisinopril 30 MG Oral Tablet Lisinopril 30 MG 05/13/2020 12:00:00 A M EST 1.0 {tablet} active Lisinopril 30 MG eCW1 ( [facility]) Lisinopril 30 MG Oral Tablet Lisinopril 30 MG 05/13/2020 12:00:00 A M EST 1.0 {tablet} suspended Lisinopril 30 MG eCW1 ([facility]) Lisinopril 30 MG Oral Tablet Lisinopril 30 MG 05/13/2020 12:00:00 A M EST 1.0 {tablet} suspended Lisinopril 30 MG eCW1 ([facility]) Lisinopril 30 MG Oral Tablet Lisinopril 30 MG 05/13/2020 12:00:00 A M EST 1.0 {tablet} suspended Lisinopril 30 MG eCW1 ([facility]) Lisinopril 30 MG Oral Tablet Lisinopril 30 MG 05/13/2020 12:00:00 A M EST 1.0 {tablet} suspended Lisinopril 30 MG eCW1 ([facility]) Lisinopril 30 MG Oral Tablet Lisinopril 30 MG 05/13/2020 12:00:00 A M EST 1.0 {tablet} suspended Lisinopril 30 MG eCW1 ([facility]) Lisinopril 30 MG Oral Tablet Lisinopril 30 MG 05/13/2020 12:00:00 A M EST 1.0 {tablet} suspended Lisinopril 30 MG eCW1 ([facility]) Lisinopril 30 MG Oral Tablet Lisinopril 30 MG 05/13/2020 12:00:00 A M EST 1.0 {tablet} suspended Lisinopril 30 MG eCW1 ([facility]) 24 HR Diltiazem Hydrochloride 180 MG Extended Release Oral Capsule DILTIAZEM HCL 05/09/2020 12:00:00 AM EST capsule,extended release 24hr 30 TAKE ONE CAPSULE BY MOUTH EVERY DAY TAKE ONE CAPSULE BY MOUTH EVERY DAY SOLD: 05/12/2020 [facility] 24 HR Diltiazem Hydrochloride 180 MG Ext ended Release Oral Capsule diltiazem (CARDIZEM CD) 180 MG 24 hr capsule diltiazem (CARDIZEM CD) 180 MG 24 hr capsule 05/07/2020 12:00:00 AM EST 180 mg Oral aborted Take 1 capsule (180 mg total) by mouth daily [facility] 20 mg 05/02/2020 12:00:00 AM EST tablet 30 TAKE ONE TABLET BY MOUTH EVERY DAY TAKE ONE TABLET BY MOUTH EVERY DAY SOLD: 05/06/2020 [facility] atorvastatin 40 MG Oral Tablet ATORVASTATIN CALCIUM 05/02/2020 1 2:00:00 AM EST tablet 30 TAKE ONE TABLET BY MOUTH EVERY D AY TAKE ONE TABLET BY MOUTH EVERY DAY SOLD: 05/06/2020 [facility] atorvastatin 40 MG Oral Tablet Atorvastatin Calcium 40 MG Atorvastatin Calcium 40 MG 05/01/2020 12:00:00 AM EST 1.0 {tablet} activ e Atorvastatin Calcium 40 MG eCW1 (Formerly [facility]) atorvastatin 40 MG Oral Tablet Atorvastatin Calcium 40 MG Atorvastatin Calcium 40 MG 05/01/2020 12:00:00 AM EST 1.0 {tablet} activ e Atorvastatin Calcium 40 MG eCW1 (Formerly [facility]) atorvastatin 40 MG Oral Tablet Atorvastatin Calcium 40 MG Atorvastatin Calcium 40 MG 05/01/2020 12:00:00 AM EST 1.0 {tablet} activ e Atorvastatin Calcium 40 MG eCW1 (Formerly [facility]) atorvastatin 40 MG Oral Tablet Atorvastatin Calcium 40 MG Atorvastatin Calcium 40 MG 05/01/2020 12:00:00 AM EST 1.0 {tablet} activ e Atorvastatin Calcium 40 MG eCW1 (Formerly [facility]) atorvastatin 40 MG Oral Tablet Atorvastatin Calcium 40 MG Atorvastatin Calcium 40 MG 05/01/2020 12:00:00 AM EST 1.0 {tablet} activ e Atorvastatin Calcium 40 MG eCW1 (Formerly [facility]) atorvastatin 40 MG Oral Tablet Atorvastatin Calcium 40 MG Atorvastatin Calcium 40 MG 05/01/2020 12:00:00 AM EST 1.0 {tablet} activ e Atorvastatin Calcium 40 MG eCW1 (Formerly [facility]) atorvastatin 40 MG Oral Tablet Atorvastatin Calcium 40 MG Atorvastatin Calcium 40 MG 05/01/2020 12:00:00 AM EST 1.0 {tablet} activ e Atorvastatin Calcium 40 MG eCW1 (Formerly [facility]) atorvastatin 40 MG Oral Tablet Atorvastatin Calcium 40 MG Atorvastatin Calcium 40 MG 05/01/2020 12:00:00 AM EST 1.0 {tablet} activ e Atorvastatin Calcium 40 MG eCW1 (Formerly [facility]) atorvastatin 40 MG Oral Tablet Atorvastatin Calcium 40 MG Atorvastatin Calcium 40 MG 05/01/2020 12:00:00 AM EST 1.0 {tablet} activ e Atorvastatin Calcium 40 MG eCW1 (Formerly [facility]) atorvastatin 40 MG Oral Tablet Atorvastatin Calcium 40 MG Atorvastatin Calcium 40 MG 05/01/2020 12:00:00 AM EST 1.0 {tablet} activ e Atorvastatin Calcium 40 MG eCW1 (Formerly [facility]) atorvastatin 40 MG Oral Tablet Atorvastatin Calcium 40 MG Atorvastatin Calcium 40 MG 05/01/2020 12:00:00 AM EST 1.0 {tablet} activ e Atorvastatin Calcium 40 MG eCW1 (Formerly [facility]) Lisinopril 20 MG Oral Tablet Lisinopril 20 MG 05/01/2020 12:00:00 A M EST 1.0 {tablet} active Lisinopril 20 MG eCW1 ( Formerly [facility]) atorvastatin 40 MG Oral Tablet Atorvastatin Calcium 40 MG Atorvastatin Calcium 40 MG 05/01/2020 12:00:00 AM EST 1.0 {tablet} activ e Atorvastatin Calcium 40 MG eCW1 (Formerly [facility]) atorvastatin 40 MG Oral Tablet Atorvastatin Calcium 40 MG Atorvastatin Calcium 40 MG 05/01/2020 12:00:00 AM EST 1.0 {tablet} activ e Atorvastatin Calcium 40 MG eCW1 (Formerly [facility]) atorvastatin 40 MG Oral Tablet Atorvastatin Calcium 40 MG Atorvastatin Calcium 40 MG 05/01/2020 12:00:00 AM EST 1.0 {tablet} activ e Atorvastatin Calcium 40 MG eCW1 (Formerly [facility]) atorvastatin 40 MG Oral Tablet Atorvastatin Calcium 40 MG Atorvastatin Calcium 40 MG 05/01/2020 12:00:00 AM EST 1.0 {tablet} activ e Atorvastatin Calcium 40 MG eCW1 (Formerly [facility]) atorvastatin 40 MG Oral Tablet Atorvastatin Calcium 40 MG Atorvastatin Calcium 40 MG 05/01/2020 12:00:00 AM EST 1.0 {tablet} activ e Atorvastatin Calcium 40 MG eCW1 (Formerly [facility]) atorvastatin 40 MG Oral Tablet Atorvastatin Calcium 40 MG Atorvastatin Calcium 40 MG 05/01/2020 12:00:00 AM EST 1.0 {tablet} activ e Atorvastatin Calcium 40 MG eCW1 (Formerly [facility]) atorvastatin 40 MG Oral Tablet Atorvastatin Calcium 40 MG Atorvastatin Calcium 40 MG 05/01/2020 12:00:00 AM EST 1.0 {tablet} activ e Atorvastatin Calcium 40 MG eCW1 (Formerly [facility]) atorvastatin 40 MG Oral Tablet Atorvastatin Calcium 40 MG Atorvastatin Calcium 40 MG 05/01/2020 12:00:00 AM EST 1.0 {tablet} activ e Atorvastatin Calcium 40 MG eCW1 (Formerly [facility]) Lisinopril 20 MG Oral Tablet Lisinopril 20 MG 05/01/2020 12:00:00 A M EST 1.0 {tablet} active Lisinopril 20 MG eCW1 ( [facility]) atorvastatin 40 MG Oral Tablet Atorvastatin Calcium 40 MG Atorvastatin Calcium 40 MG 05/01/2020 12:00:00 AM EST 1.0 {tablet} activ e Atorvastatin Calcium 40 MG eCW1 (Formerly [facility]) atorvastatin 40 MG Oral Tablet Atorvastatin Calcium 40 MG Atorvastatin Calcium 40 MG 05/01/2020 12:00:00 AM EST 1.0 {tablet} activ e Atorvastatin Calcium 40 MG eCW1 (Formerly [facility]) atorvastatin 40 MG Oral Tablet Atorvastatin Calcium 40 MG Atorvastatin Calcium 40 MG 05/01/2020 12:00:00 AM EST 1.0 {tablet} activ e Atorvastatin Calcium 40 MG eCW1 (Formerly [facility]) atorvastatin 40 MG Oral Tablet Atorvastatin Calcium 40 MG Atorvastatin Calcium 40 MG 05/01/2020 12:00:00 AM EST 1.0 {tablet} activ e Atorvastatin Calcium 40 MG eCW1 (Formerly [facility]) 20 mg 04/23/2020 12:00:00 AM EST tablet [...] aborted Take 10 mg by mouth daily [facility] 10 mg 04/22/2020 12:00:00 AM EST tablet 30 TAKE ONE TABLET BY MOUTH EVERY DAY TAKE ONE TABLET BY MOUTH EVERY DAY SOLD: 04/23/2020 [facility] Isosorbide Dinitrate 30 MG Oral Tablet Isosorbide Dinitrate 30 MG 04/21/2020 12:00:00 AM EST 1.0 {tablet} active Is osorbide Dinitrate 30 MG eCW1 (Formerly [facility]) Isosorbide Dinitrate 30 MG Oral Tablet Isosorbide Dinitrate 30 MG 04/21/2020 12:00:00 AM EST 1.0 {tablet} active Is osorbide Dinitrate 30 MG eCW1 (Formerly [facility]) Lisinopril 10 MG Oral Tablet Lisinopril 10 MG 04/21/2020 12:00:00 A M EST 1.0 {tablet} active Lisinopril 10 MG eCW1 ( Former[facility]) Isosorbide Dinitrate 30 MG Oral Tablet Isosorbide Dinitrate 30 MG 04/21/2020 12:00:00 AM EST 1.0 {tablet} active Is osorbide Dinitrate 30 MG eCW1 (Formerly [facility]) Isosorbide Dinitrate 30 MG Oral Tablet Isosorbide Dinitrate 30 MG 04/21/2020 12:00:00 AM EST 1.0 {tablet} active Is osorbide Dinitrate 30 MG eCW1 (Formerly [facility]) Isosorbide Dinitrate 30 MG Oral Tablet Isosorbide Dinitrate 30 MG 04/21/2020 12:00:00 AM EST 1.0 {tablet} active Is osorbide Dinitrate 30 MG eCW1 (Formerly [facility]) Isosorbide Dinitrate 30 MG Oral Tablet Isosorbide Dinitrate 30 MG 04/21/2020 12:00:00 AM EST 1.0 {tablet} active Is osorbide Dinitrate 30 MG eCW1 (Formerly [facility]) Isosorbide Dinitrate 30 MG Oral Tablet Isosorbide Dinitrate 30 MG 04/21/2020 12:00:00 AM EST 1.0 {tablet} active Is osorbide Dinitrate 30 MG eCW1 (Formerly [facility]) Isosorbide Dinitrate 30 MG Oral Tablet Isosorbide Dinitrate 30 MG 04/21/2020 12:00:00 AM EST 1.0 {tablet} active Is osorbide Dinitrate 30 MG eCW1 (Formerly [facility]) Isosorbide Dinitrate 30 MG Oral Tablet Isosorbide Dinitrate 30 MG 04/21/2020 12:00:00 AM EST 1.0 {tablet} active Is osorbide Dinitrate 30 MG eCW1 (Formerly [facility]) Isosorbide Dinitrate 30 MG Oral Tablet Isosorbide Dinitrate 30 MG 04/21/2020 12:00:00 AM EST 1.0 {tablet} active Is osorbide Dinitrate 30 MG eCW1 (Formerly [facility]) Isosorbide Dinitrate 30 MG Oral Tablet Isosorbide Dinitrate 30 MG 04/21/2020 12:00:00 AM EST 1.0 {tablet} active Is osorbide Dinitrate 30 MG eCW1 (Formerly [facility]) Isosorbide Dinitrate 30 MG Oral Tablet Isosorbide Dinitrate 30 MG 04/21/2020 12:00:00 AM EST 1.0 {tablet} active Is osorbide Dinitrate 30 MG eCW1 (Former[facility]) Isosorbide Dinitrate 30 MG Oral Tablet Isosorbide Dinitrate 30 MG 04/21/2020 12:00:00 AM EST 1.0 {tablet} active Is osorbide Dinitrate 30 MG eCW1 (Formerly [facility]) Isosorbide Dinitrate 30 MG Oral Tablet Isosorbide Dinitrate 30 MG 04/21/2020 12:00:00 AM EST 1.0 {tablet} active Is osorbide Dinitrate 30 MG eCW1 (Formerly [facility]) Isosorbide Dinitrate 30 MG Oral Tablet Isosorbide Dinitrate 30 MG 04/21/2020 12:00:00 AM EST 1.0 {tablet} active Is osorbide Dinitrate 30 MG eCW1 (Formerly [facility]) Isosorbide Dinitrate 30 MG Oral Tablet Isosorbide Dinitrate 30 MG 04/21/2020 12:00:00 AM EST 1.0 {tablet} active Is osorbide Dinitrate 30 MG eCW1 (Formerly [facility]) Isosorbide Dinitrate 30 MG Oral Tablet Isosorbide Dinitrate 30 MG 04/21/2020 12:00:00 AM EST 1.0 {tablet} active Is osorbide Dinitrate 30 MG eCW1 (Formerly [facility]) Isosorbide Dinitrate 30 MG Oral Tablet Isosorbide Dinitrate 30 MG 04/21/2020 12:00:00 AM EST 1.0 {tablet} active Is osorbide Dinitrate 30 MG eCW1 (Former[facility]) Isosorbide Dinitrate 30 MG Oral Tablet Isosorbide Dinitrate 30 MG 04/21/2020 12:00:00 AM EST 1.0 {tablet} active Is osorbide Dinitrate 30 MG eCW1 (Former[facility]) Isosorbide Dinitrate 30 MG Oral Tablet Isosorbide Dinitrate 30 MG 04/21/2020 12:00:00 AM EST 1.0 {tablet} active Is osorbide Dinitrate 30 MG eCW1 (Formerly [facility]) Isosorbide Dinitrate 30 MG Oral Tablet Isosorbide Dinitrate 30 MG 04/21/2020 12:00:00 AM EST 1.0 {tablet} active Is osorbide Dinitrate 30 MG eCW1 (Former[facility]) Isosorbide Dinitrate 30 MG Oral Tablet Isosorbide Dinitrate 30 MG 04/21/2020 12:00:00 AM EST 1.0 {tablet} active Is osorbide Dinitrate 30 MG eCW1 (Former[facility]) Isosorbide Dinitrate 30 MG Oral Tablet Isosorbide Dinitrate 30 MG 04/21/2020 12:00:00 AM EST 1.0 {tablet} active Is osorbide Dinitrate 30 MG eCW1 (Formerly [facility]) Isosorbide Dinitrate 30 MG Oral Tablet Isosorbide Dinitrate 30 MG 04/21/2020 12:00:00 AM EST 1.0 {tablet} active Is osorbide Dinitrate 30 MG eCW1 ([facility]) Isosorbide Dinitrate 30 MG Oral Tablet Isosorbide Dinitrate 30 MG 04/21/2020 12:00:00 AM EST 1.0 {tablet} active Is osorbide Dinitrate 30 MG eCW1 (Former[facility]) Lisinopril 10 MG Oral Tablet Lisinopril 10 MG 04/21/2020 12:00:00 A M EST 1.0 {tablet} active Lisinopril 10 MG eCW1 ( [facility]) 30 mg 04/09/2020 12:00:00 AM EDT tablet 60 TAKE ONE TABLET BY MOUTH TWICE A DAY TAKE ONE TABLET BY MOUTH TWICE A DAY SOLD: 04/11/2020 [facility] Nitroglycerin 0.3 MG Sublingual Tablet NITROGLYCERIN [...] mg Oral aborted Take 25 mg by [facility] Aspirin 81 MG Delayed Release Oral Table t SM ASPIRIN ADULT LOW STRENGTH 81 MG EC tablet SM ASPIRIN ADULT LOW STRENGTH 81 MG EC tablet 04/09/2020 12: 00:00 AM EDT 81 mg Oral aborted Take 81 mg by [facility] daily [facility] Nitroglycerin 0.3 MG Sublingual Tablet n itroglycerin (NITROSTAT) 0.3 MG SL tablet nitroglycerin (NITROSTAT) 0.3 MG SL tablet 04/09/2020 12:00:00 A M EDT active TAKE ONE T ABLET UNDER THE TONGUE WHEN CHEST PAIN DOES NOT IMPROVE IN 3 MINUTES AND CAN USE SECOND DOSE IF PAIN DOES NOT RESOLVE WITH ONE [facility] 25 mg 04/09/2020 12:00:00 AM EDT tablet [...] AM EDT active Nitroglycerin 0.3 MG eCW1 (Formerly [facility]) Nitroglycerin 0.3 MG Sublingual Tablet Nitroglycerin 0.3 MG 04/08/2020 12:00:00 AM EDT active Nitroglycerin 0.3 MG eCW1 (Formerly [facility]) Nitroglycerin 0.3 MG Sublingual Tablet Nitroglycerin 0.3 MG 04/08/2020 12:00:00 AM EDT active Nitroglycerin 0.3 MG eCW1 (Formerly [facility]) Nitroglycerin 0.3 MG Sublingual Tablet Nitroglycerin 0.3 MG 04/08/2020 12:00:00 AM EDT active Nitroglycerin 0.3 MG eCW1 (Formerly [facility]) Nitroglycerin 0.3 MG Sublingual Tablet Nitroglycerin 0.3 MG 04/08/2020 12:00:00 AM EDT active Nitroglycerin 0.3 MG eCW1 (Formerly [facility]) Nitroglycerin 0.3 MG Sublingual Tablet Nitroglycerin 0.3 MG 04/08/2020 12:00:00 AM EDT active Nitroglycerin 0.3 MG eCW1 (Former[facility]) Nitroglycerin 0.3 MG Sublingual Tablet Nitroglycerin 0.3 MG 04/08/2020 12:00:00 AM EDT active Nitroglycerin 0.3 MG eCW1 (Former[facility]) Nitroglycerin 0.3 MG Sublingual Tablet Nitroglycerin 0.3 MG 04/08/2020 12:00:00 AM EDT active Nitroglycerin 0.3 MG eCW1 (Formerly [facility]) atorvastatin 80 MG Oral Tablet ATORVASTATIN CALCIUM 04/08/2020 1 2:00:00 AM EDT tablet 30 TAKE ONE TABLET BY MOUTH EVERY D AY TAKE ONE TABLET BY MOUTH EVERY DAY SOLD: 04/11/2020 [facility] Nitroglycerin 0.3 MG Sublingual Tablet Nitroglycerin 0.3 MG 04/08/2020 12:00:00 AM EDT active Nitroglycerin 0.3 MG eCW1 (Formerly [facility]) Nitroglycerin 0.3 MG Sublingual Tablet Nitroglycerin 0.3 MG 04/08/2020 12:00:00 AM EDT active Nitroglycerin 0.3 MG eCW1 (Former[facility]) Nitroglycerin 0.3 MG Sublingual Tablet Nitroglycerin 0.3 MG 04/08/2020 12:00:00 AM EDT active Nitroglycerin 0.3 MG eCW1 (Former[facility]) Nitroglycerin 0.3 MG Sublingual Tablet Nitroglycerin 0.3 MG 04/08/2020 12:00:00 AM EDT active Nitroglycerin 0.3 MG eCW1 (Former[facility]) Nitroglycerin 0.3 MG Sublingual Tablet Nitroglycerin 0.3 MG 04/08/2020 12:00:00 AM EDT active Nitroglycerin 0.3 MG eCW1 (Former[facility]) Nitroglycerin 0.3 MG Sublingual Tablet Nitroglycerin 0.3 MG 04/08/2020 12:00:00 AM EDT active Nitroglycerin 0.3 MG eCW1 (Formerly [facility]) atorvastatin 40 MG Oral Tablet atorvastatin (LIPITOR) 40 MG tablet atorvastatin (LIPITOR) 40 MG tablet 04/08/2020 12:00:00 AM EDT 40 mg Oral aborted Take 40 mg by mouth daily [facility] Nitroglycerin 0.3 MG Sublingual Tablet Nitroglycerin 0.3 MG 04/08/2020 12:00:00 AM EDT active Nitroglycerin 0.3 MG eCW1 (Former[facility]) Nitroglycerin 0.3 MG Sublingual Tablet Nitroglycerin 0.3 MG 04/08/2020 12:00:00 AM EDT active Nitroglycerin 0.3 MG eCW1 (Former[facility]) Nitroglycerin 0.3 MG Sublingual Tablet Nitroglycerin 0.3 MG 04/08/2020 12:00:00 AM EDT active Nitroglycerin 0.3 MG eCW1 (Former[facility]) Nitroglycerin 0.3 MG Sublingual Tablet Nitroglycerin 0.3 MG 04/08/2020 12:00:00 AM EDT active Nitroglycerin 0.3 MG eCW1 ([facility]) Nitroglycerin 0.3 MG Sublingual Tablet Nitroglycerin 0.3 MG 04/08/2020 12:00:00 AM EDT active Nitroglycerin 0.3 MG eCW1 (Former[facility]) Nitroglycerin 0.3 MG Sublingual Tablet Nitroglycerin 0.3 MG 04/08/2020 12:00:00 AM EDT active Nitroglycerin 0.3 MG eCW1 (Former[facility]) Nitroglycerin 0.3 MG Sublingual Tablet Nitroglycerin 0.3 MG 04/08/2020 12:00:00 AM EDT active Nitroglycerin 0.3 MG eCW1 ([facility]) Nitroglycerin 0.3 MG Sublingual Tablet Nitroglycerin 0.3 MG 04/08/2020 12:00:00 AM EDT active Nitroglycerin 0.3 MG eCW1 ([facility]) Nitroglycerin 0.3 MG Sublingual Tablet Nitroglycerin 0.3 MG 04/08/2020 12:00:00 AM EDT active Nitroglycerin 0.3 MG eCW1 ([facility]) Nitroglycerin 0.3 MG Sublingual Tablet Nitroglycerin 0.3 MG 04/08/2020 12:00:00 AM EDT active Nitroglycerin 0.3 MG eCW1 ([facility]) Nitroglycerin 0.3 MG Sublingual Tablet Nitroglycerin 0.3 MG 04/08/2020 12:00:00 AM EDT active Nitroglycerin 0.3 MG eCW1 ([facility]) Nitroglycerin 0.3 MG Sublingual Tablet Nitroglycerin 0.3 MG 04/08/2020 12:00:00 AM EDT active Nitroglycerin 0.3 MG eCW1 (Former[facility]) Nitroglycerin 0.3 MG Sublingual Tablet Nitroglycerin 0.3 MG 04/08/2020 12:00:00 AM EDT active Nitroglycerin 0.3 MG eCW1 (Former[facility]) Nitroglycerin 0.3 MG Sublingual Tablet Nitroglycerin 0.3 MG 04/08/2020 12:00:00 AM EDT active Nitroglycerin 0.3 MG eCW1 (Former[facility]) Clonidine Hydrochloride 0.1 MG Oral Tablet Clonidine H Cl 0.1 MG Clonidine HCl 0.1 MG 04/03/2020 12:00:00 AM EDT 1.0 {tablet} suspe nded Clonidine HCl 0.1 MG eCW1 (Formerly [facility]) Clonidine Hydrochloride 0.1 MG Oral Tablet Clonidine H Cl 0.1 MG Clonidine HCl 0.1 MG 04/03/2020 12:00:00 AM EDT 1.0 {tablet} suspe nded Clonidine HCl 0.1 MG eCW1 (Former[facility]) Hydrochlorothiazide 25 MG Oral Tablet Hydrochlorothiazide 25 MG 04/03/2020 12:00:00 AM EDT 1.0 {tablet_in_the_morning} acti ve Hydrochlorothiazide 25 MG eCW1 (Formerly [facility]) Hydrochlorothiazide 25 MG Oral Tablet Hydrochlorothiazide 25 MG 04/03/2020 12:00:00 AM EDT 1.0 {tablet_in_the_morning} acti ve Hydrochlorothiazide 25 MG eCW1 (Formerly [facility]) Hydrochlorothiazide 25 MG Oral Tablet Hydrochlorothiazide 25 MG 04/03/2020 12:00:00 AM EDT 1.0 {tablet_in_the_morning} acti ve Hydrochlorothiazide 25 MG eCW1 (Formerly [facility]) atorvastatin 80 MG Oral Tablet Atorvastatin Calcium 80 MG Atorvastatin Calcium 80 MG 04/03/2020 12:00:00 AM EDT 1.0 {tablet} activ e Atorvastatin Calcium 80 MG eCW1 ([facility]) Hydrochlorothiazide 25 MG Oral Tablet Hydrochlorothiazide 25 MG 04/03/2020 12:00:00 AM EDT 1.0 {tablet_in_the_morning} acti ve Hydrochlorothiazide 25 MG eCW1 ([facility]ly [facility]) Hydrochlorothiazide 25 MG Oral Tablet Hydrochlorothiazide 25 MG 04/03/2020 12:00:00 AM EDT 1.0 {tablet_in_the_morning} acti ve Hydrochlorothiazide 25 MG eCW1 ([facility]) Isosorbide Dinitrate 30 MG Oral Tablet Isosorbide Dinitrate 30 MG 04/03/2020 12:00:00 AM EDT 1.0 {tablet} active Is osorbide Dinitrate 30 MG eCW1 ([facility]) Hydrochlorothiazide 25 MG Oral Tablet Hydrochlorothiazide 25 MG 04/03/2020 12:00:00 AM EDT 1.0 {tablet_in_the_morning} acti ve Hydrochlorothiazide 25 MG eCW1 ([facility]) Hydrochlorothiazide 25 MG Oral Tablet Hydrochlorothiazide 25 MG 04/03/2020 12:00:00 AM EDT 1.0 {tablet_in_the_morning} acti ve Hydrochlorothiazide 25 MG eCW1 (Formerly [facility]) Aspirin 81 MG Delayed Release Oral Tablet Aspirin 81 81 MG A spirin 81 81 MG 04/03/2020 12:00:00 AM EDT 1.0 {tablet} active Aspirin 81 81 MG eCW1 ([facility]) Hydrochlorothiazide 25 MG Oral Tablet Hydrochlorothiazide 25 MG 04/03/2020 12:00:00 AM EDT 1.0 {tablet_in_the_morning} acti ve Hydrochlorothiazide 25 MG eCW1 (Formerly [facility]) Aspirin 81 MG Delayed Release Oral Tablet Aspirin 81 81 MG A spirin 81 81 MG 04/03/2020 12:00:00 AM EDT 1.0 {tablet} active Aspirin 81 81 MG eCW1 ([facility]) Aspirin 81 MG Delayed Release Oral Tablet Aspirin 81 81 MG A spirin 81 81 MG 04/03/2020 12:00:00 AM EDT 1.0 {tablet} active Aspirin 81 81 MG eCW1 ([facility]) Hydrochlorothiazide 25 MG Oral Tablet hydroCHLOROthiaz brennan 25 MG hydroCHLOROthiazide 25 MG 04/03/2020 12:00:00 AM EDT 1.0 {tablet_in_the_morning} active hydroCHL OROthiazide 25 MG eCW1 ([facility]) Hydrochlorothiazide 25 MG Oral Tablet Hydrochlorothiazide 25 MG 04/03/2020 12:00:00 AM EDT 1.0 {tablet_in_the_morning} acti ve Hydrochlorothiazide 25 MG eCW1 (Formerly [facility]) Isosorbide Dinitrate 30 MG Oral Tablet Isosorbide Dinitrate 30 MG 04/03/2020 12:00:00 AM EDT 1.0 {tablet} active Is osorbide Dinitrate 30 MG eCW1 ([facility]) Hydrochlorothiazide 25 MG Oral Tablet hydroCHLOROthiaz brennan 25 MG hydroCHLOROthiazide 25 MG 04/03/2020 12:00:00 AM EDT 1.0 {tablet_in_the_morning} active hydroCHL OROthiazide 25 MG eCW1 ([facility]) Hydrochlorothiazide 25 MG Oral Tablet Hydrochlorothiazide 25 MG 04/03/2020 12:00:00 AM EDT 1.0 {tablet_in_the_morning} acti ve Hydrochlorothiazide 25 MG eCW1 ([facility]) Hydrochlorothiazide 25 MG Oral Tablet Hydrochlorothiazide 25 MG 04/03/2020 12:00:00 AM EDT 1.0 {tablet_in_the_morning} acti ve Hydrochlorothiazide 25 MG eCW1 (Former[facility]) Clonidine Hydrochloride 0.1 MG Oral Tablet Clonidine H Cl 0.1 MG Clonidine HCl 0.1 MG 04/03/2020 12:00:00 AM EDT 1.0 {tablet} activ e Clonidine HCl 0.1 MG eCW1 ([facility]) Clonidine Hydrochloride 0.1 MG Oral Tablet Clonidine H Cl 0.1 MG Clonidine HCl 0.1 MG 04/03/2020 12:00:00 AM EDT 1.0 {tablet} suspe nded Clonidine HCl 0.1 MG eCW1 ([facility]) Clonidine Hydrochloride 0.1 MG Oral Tablet Clonidine H Cl 0.1 MG Clonidine HCl 0.1 MG 04/03/2020 12:00:00 AM EDT 1.0 {tablet} suspe nded Clonidine HCl 0.1 MG eCW1 ([facility]) atorvastatin 80 MG Oral Tablet Atorvastatin Calcium 80 MG Atorvastatin Calcium 80 MG 04/03/2020 12:00:00 AM EDT 1.0 {tablet} activ e Atorvastatin Calcium 80 MG eCW1 ([facility]) atorvastatin 80 MG Oral Tablet Atorvastatin Calcium 80 MG Atorvastatin Calcium 80 MG 04/03/2020 12:00:00 AM EDT 1.0 {tablet} activ e Atorvastatin Calcium 80 MG eCW1 ([facility]) Aspirin 81 MG Delayed Release Oral Tablet Aspirin 81 81 MG A spirin 81 81 MG 04/03/2020 12:00:00 AM EDT 1.0 {tablet} active Aspirin 81 81 MG eCW1 ([facility]) Clonidine Hydrochloride 0.1 MG Oral Tablet Clonidine H Cl 0.1 MG Clonidine HCl 0.1 MG 04/03/2020 12:00:00 AM EDT 1.0 {tablet} suspe nded Clonidine HCl 0.1 MG eCW1 ([facility]) Aspirin 81 MG Delayed Release Oral Tablet Aspirin 81 81 MG A spirin 81 81 MG 04/03/2020 12:00:00 AM EDT 1.0 {tablet} active Aspirin 81 81 MG eCW1 ([facility]) Hydrochlorothiazide 25 MG Oral Tablet Hydrochlorothiazide 25 MG 04/03/2020 12:00:00 AM EDT 1.0 {tablet_in_the_morning} acti ve Hydrochlorothiazide 25 MG eCW1 ([facility]) Hydrochlorothiazide 25 MG Oral Tablet Hydrochlorothiazide 25 MG 04/03/2020 12:00:00 AM EDT 1.0 {tablet_in_the_morning} acti ve Hydrochlorothiazide 25 MG eCW1 ([facility]) Clonidine Hydrochloride 0.1 MG Oral Tablet Clonidine H Cl 0.1 MG Clonidine HCl 0.1 MG 04/03/2020 12:00:00 AM EDT 1.0 {tablet} suspe nded Clonidine HCl 0.1 MG eCW1 ([facility]) Hydrochlorothiazide 25 MG Oral Tablet Hydrochlorothiazide 25 MG 04/03/2020 12:00:00 AM EDT 1.0 {tablet_in_the_morning} acti ve Hydrochlorothiazide 25 MG eCW1 ([facility]) Isosorbide Dinitrate 30 MG Oral Tablet Isosorbide Dinitrate 30 MG 04/03/2020 12:00:00 AM EDT 1.0 {tablet} active Is osorbide Dinitrate 30 MG eCW1 ([facility]) Clonidine Hydrochloride 0.1 MG Oral Tablet Clonidine H Cl 0.1 MG Clonidine HCl 0.1 MG 04/03/2020 12:00:00 AM EDT 1.0 {tablet} suspe nded Clonidine HCl 0.1 MG eCW1 ([facility]) Aspirin 81 MG Delayed Release Oral Tablet Aspirin 81 81 MG A spirin 81 81 MG 04/03/2020 12:00:00 AM EDT 1.0 {tablet} active Aspirin 81 81 MG eCW1 ([facility]) Hydrochlorothiazide 25 MG Oral Tablet Hydrochlorothiazide 25 MG 04/03/2020 12:00:00 AM EDT 1.0 {tablet_in_the_morning} acti ve Hydrochlorothiazide 25 MG eCW1 ([facility]) Aspirin 81 MG Delayed Release Oral Tablet Aspirin 81 81 MG A spirin 81 81 MG 04/03/2020 12:00:00 AM EDT 1.0 {tablet} active Aspirin 81 81 MG eCW1 ([facility]) Hydrochlorothiazide 25 MG Oral Tablet Hydrochlorothiazide 25 MG 04/03/2020 12:00:00 AM EDT 1.0 {tablet_in_the_morning} acti ve Hydrochlorothiazide 25 MG eCW1 ([facility]) Aspirin 81 MG Delayed Release Oral Tablet Aspirin 81 81 MG A spirin 81 81 MG 04/03/2020 12:00:00 AM EDT 1.0 {tablet} active Aspirin 81 81 MG eCW1 ([facility]) atorvastatin 80 MG Oral Tablet Atorvastatin Calcium 80 MG Atorvastatin Calcium 80 MG 04/03/2020 12:00:00 AM EDT 1.0 {tablet} activ e Atorvastatin Calcium 80 MG eCW1 ([facility]) Hydrochlorothiazide 25 MG Oral Tablet Hydrochlorothiazide 25 MG 04/03/2020 12:00:00 AM EDT 1.0 {tablet_in_the_morning} acti ve Hydrochlorothiazide 25 MG eCW1 ([facility]) Clonidine Hydrochloride 0.1 MG Oral Tablet Clonidine H Cl 0.1 MG Clonidine HCl 0.1 MG 04/03/2020 12:00:00 AM EDT 1.0 {tablet} suspe nded Clonidine HCl 0.1 MG eCW1 (Formerly [facility]) pregabalin 150 MG Oral Capsule pregabalin (LYRICA) 150 MG capsule pregabalin (LYRICA) 150 MG capsule 04/03/2020 12:00:00 AM EDT active TK 1 C PO BID. MDD 2 CS [facility] Clonidine Hydrochloride 0.1 MG Oral Tablet Clonidine H Cl 0.1 MG Clonidine HCl 0.1 MG 04/03/2020 12:00:00 AM EDT 1.0 {tablet} suspe nded Clonidine HCl 0.1 MG eCW1 (Formerly [facility]) Clonidine Hydrochloride 0.1 MG Oral Tablet Clonidine H Cl 0.1 MG Clonidine HCl 0.1 MG 04/03/2020 12:00:00 AM EDT 1.0 {tablet} suspe nded Clonidine HCl 0.1 MG eCW1 (Formerly [facility]) meloxicam 15 MG Oral Tablet meloxicam (MOBIC) 15 MG ta blet meloxicam (MOBIC) 15 MG tablet 04/03/2020 12:00:00 AM EDT active as needed [facility] Clonidine Hydrochloride 0.1 MG Oral Tablet Clonidine H Cl 0.1 MG Clonidine HCl 0.1 MG 04/03/2020 12:00:00 AM EDT 1.0 {tablet} suspe nded Clonidine HCl 0.1 MG eCW1 (Formerly [facility]) Hydrochlorothiazide 25 MG Oral Tablet Hydrochlorothiazide 25 MG 04/03/2020 12:00:00 AM EDT 1.0 {tablet_in_the_morning} acti ve Hydrochlorothiazide 25 MG eCW1 (Formerly [facility]) Hydrochlorothiazide 25 MG Oral Tablet Hydrochlorothiazide 25 MG 04/03/2020 12:00:00 AM EDT 1.0 {tablet_in_the_morning} acti ve Hydrochlorothiazide 25 MG eCW1 (Formerly [facility]) Isosorbide Dinitrate 30 MG Oral Tablet Isosorbide Dinitrate 30 MG 04/03/2020 12:00:00 AM EDT 1.0 {tablet} active Is osorbide Dinitrate 30 MG eCW1 (Formerly [facility]) Aspirin 81 MG Delayed Release Oral Tablet Aspirin 81 81 MG A spirin 81 81 MG 04/03/2020 12:00:00 AM EDT 1.0 {tablet} active Aspirin 81 81 MG eCW1 (Formerly [facility]) Hydrochlorothiazide 25 MG Oral Tablet Hydrochlorothiazide 25 MG 04/03/2020 12:00:00 AM EDT 1.0 {tablet_in_the_morning} acti ve Hydrochlorothiazide 25 MG eCW1 (Formerly [facility]) Clonidine Hydrochloride 0.1 MG Oral Tablet Clonidine H Cl 0.1 MG Clonidine HCl 0.1 MG 04/03/2020 12:00:00 AM EDT 1.0 {tablet} activ e Clonidine HCl 0.1 MG eCW1 (Formerly [facility]) Aspirin 81 MG Delayed Release Oral Tablet Aspirin 81 81 MG A spirin 81 81 MG 04/03/2020 12:00:00 AM EDT 1.0 {tablet} active Aspirin 81 81 MG eCW1 (Formerly [facility]) atorvastatin 80 MG Oral Tablet Atorvastatin Calcium 80 MG Atorvastatin Calcium 80 MG 04/03/2020 12:00:00 AM EDT 1.0 {tablet} activ e Atorvastatin Calcium 80 MG eCW1 (Formerly [facility]) Hydrochlorothiazide 25 MG Oral Tablet Hydrochlorothiazide 25 MG 04/03/2020 12:00:00 AM EDT 1.0 {tablet_in_the_morning} acti ve Hydrochlorothiazide 25 MG eCW1 (Formerly [facility]) Isosorbide Dinitrate 30 MG Oral Tablet Isosorbide Dinitrate 30 MG 04/03/2020 12:00:00 AM EDT 1.0 {tablet} active Is osorbide Dinitrate 30 MG eCW1 (Formerly [facility]) Hydrochlorothiazide 25 MG Oral Tablet Hydrochlorothiazide 25 MG 04/03/2020 12:00:00 AM EDT 1.0 {tablet_in_the_morning} acti ve Hydrochlorothiazide 25 MG eCW1 (Formerly [facility]) Hydrochlorothiazide 25 MG Oral Tablet Hydrochlorothiazide 25 MG 04/03/2020 12:00:00 AM EDT 1.0 {tablet_in_the_morning} acti ve Hydrochlorothiazide 25 MG eCW1 (Formerly [facility]) Aspirin 81 MG Delayed Release Oral Tablet Aspirin 81 81 MG A spirin 81 81 MG 04/03/2020 12:00:00 AM EDT 1.0 {tablet} active Aspirin 81 81 MG eCW1 (Formerly [facility]) Clonidine Hydrochloride 0.1 MG Oral Tablet Clonidine H Cl 0.1 MG Clonidine HCl 0.1 MG 04/03/2020 12:00:00 AM EDT 1.0 {tablet} suspe nded Clonidine HCl 0.1 MG eCW1 (Formerly [facility]) Clonidine Hydrochloride 0.1 MG Oral Tablet Clonidine H Cl 0.1 MG Clonidine HCl 0.1 MG 04/03/2020 12:00:00 AM EDT 1.0 {tablet} suspe nded Clonidine HCl 0.1 MG eCW1 (Formerly [facility]) Isosorbide Dinitrate 30 MG Oral Tablet Isosorbide Dinitrate 30 MG 04/03/2020 12:00:00 AM EDT 1.0 {tablet} active Is osorbide Dinitrate 30 MG eCW1 (Formerly [facility]) Aspirin 81 MG Delayed Release Oral Tablet Aspirin 81 81 MG A spirin 81 81 MG 04/03/2020 12:00:00 AM EDT 1.0 {tablet} active Aspirin 81 81 MG eCW1 (Formerly [facility]) Hydrochlorothiazide 25 MG Oral Tablet Hydrochlorothiazide 25 MG 04/03/2020 12:00:00 AM EDT 1.0 {tablet_in_the_morning} acti ve Hydrochlorothiazide 25 MG eCW1 (Formerly [facility]) atorvastatin 80 MG Oral Tablet Atorvastatin Calcium 80 MG Atorvastatin Calcium 80 MG 04/03/2020 12:00:00 AM EDT 1.0 {tablet} activ e Atorvastatin Calcium 80 MG eCW1 (Formerly [facility]) Clonidine Hydrochloride 0.1 MG Oral Tablet Clonidine H Cl 0.1 MG Clonidine HCl 0.1 MG 04/03/2020 12:00:00 AM EDT 1.0 {tablet} suspe nded Clonidine HCl 0.1 MG eCW1 (Formerly [facility]) Clonidine Hydrochloride 0.1 MG Oral Tablet Clonidine H Cl 0.1 MG Clonidine HCl 0.1 MG 04/03/2020 12:00:00 AM EDT 1.0 {tablet} suspe nded Clonidine HCl 0.1 MG eCW1 (Formerly [facility]) Aspirin 81 MG Delayed Release Oral Tablet Aspirin 81 81 MG A spirin 81 81 MG 04/03/2020 12:00:00 AM EDT 1.0 {tablet} active Aspirin 81 81 MG eCW1 (Formerly [facility]) Clonidine Hydrochloride 0.1 MG Oral Tablet cloNIDine H Cl 0.1 MG cloNIDine HCl 0.1 MG 04/03/2020 12:00:00 AM EDT 1.0 {tablet} suspe nded cloNIDine HCl 0.1 MG eCW1 (Formerly [facility]) Clonidine Hydrochloride 0.1 MG Oral Tablet Clonidine H Cl 0.1 MG Clonidine HCl 0.1 MG 04/03/2020 12:00:00 AM EDT 1.0 {tablet} suspe nded Clonidine HCl 0.1 MG eCW1 (Formerly [facility]) Clonidine Hydrochloride 0.1 MG Oral Tablet Clonidine H Cl 0.1 MG Clonidine HCl 0.1 MG 04/03/2020 12:00:00 AM EDT 1.0 {tablet} suspe nded Clonidine HCl 0.1 MG eCW1 (Formerly [facility]) Isosorbide Dinitrate 30 MG Oral Tablet Isosorbide Dinitrate 30 MG 04/03/2020 12:00:00 AM EDT 1.0 {tablet} suspended Isosorbide Dinitrate 30 MG eCW1 (Formerly [facility]) Clonidine Hydrochloride 0.1 MG Oral Tablet Clonidine H Cl 0.1 MG Clonidine HCl 0.1 MG 04/03/2020 12:00:00 AM EDT 1.0 {tablet} suspe nded Clonidine HCl 0.1 MG eCW1 (Formerly [facility]) Hydrochlorothiazide 25 MG Oral Tablet Hydrochlorothiazide 25 MG 04/03/2020 12:00:00 AM EDT 1.0 {tablet_in_the_morning} acti ve Hydrochlorothiazide 25 MG eCW1 (Formerly [facility]) Clonidine Hydrochloride 0.1 MG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 rce(s) Supporting Document(s) 12 7-18 BLOOD UREA NITROGEN eCW1 ([facility]) 93 70-100 GLUCOSE, FASTING eCW1 ([facility]) > 60.0 >60 GLOMERULAR FILTRATION RATE eCW 1 (Formerly [facility]) 139 136-145 SODIUM LEVEL eCW1 ([facility]) 1.37 0.70-1.30 CREATININE FOR GFR eCW1 ([facility]) 9.1 8.5-10.1 CALCIUM LEVEL eCW1 (Formerly [facility]) 31 21-32 CARBON DIOXIDE LEVEL eCW1 ([facility]) 103 98-107 CHLORIDE LEVEL eCW1 (Formerly [facility]) 3.7 3.5-5.1 POTASSIUM SERUM eCW1 ([facility]) ID Date Data Source [id number] 11/10/2020 09:45:32 PM EDT [facility] Name Value Range Interpretation Code Description Data Anneliese rce(s) Supporting Document(s) &PDF [facility] LQEQFg9cHjAVPsGh00/IQSouVABru5ZtKGzrUTb8VCshHUUkI3PrkYxdZKMIWn8CCQOkGMJRKTAgWSYt waW [file] ICAgICAgICAgICAgICAgICAgICAgICAgICAgICAgICAgICAgICAgICAgICAgICANCiAgICAgICAgICAg ICAgICAgICAgICAgICAgICAgICAgICAgICAgICAgIC AgICAgICAgICAgICAgICAgICAgICAgICAgICAgICAgICAgICAgICAgICAgICAgICAgICAgICAgICANCi AgICAgICAgICAgICAgICAgICAgICAgICAgICAgICAgICAgICAgICAgICAgICAgICAgICAgICAgICAgIC AgICAgICAgICAgICAgICAgICAgICAgICAgICAgICAg ICAgICAgICANCiAgICAgICAgICAgICAgICAgICAgICAgICAgICAgICAgICAgICAgICAgICAgICAgICAg ICAgICAgICAgICAgICAgICAgICAgICAgICAgICAgICAgICAgICAgICAgICAgICAgICANCiAgICAgICAg ICAgICAgICAgICAgICAgICAgICAgICAgICAgICAgIC AgICAgICAgICAgICAgICAgICAgICAgICAgICAgICAgICAgICAgICAgICAgICAgICAgICAgICAgICAgIC ANCiAgICAgICAgICAgICAgICAgICAgICAgICAgICAgICAgICAgICAgICAgICAgICAgICAgICAgICAgIC AgICAgICAgICAgICAgICAgICAgICAgICAgICAgICAg ICAgICAgICAgICANCiAgICAgICAgICAgICAgICAgICAgICAgICAgICAgICAgICAgICAgICAgICAgICAg ICAgICAgICAgICAgICAgICAgICAgICAgICAgICAgICAgICAgICAgICAgICAgICAgICAgICANCiAgICAg ICAgICAgICAgICAgICAgICAgICAgICAgICAgICAgIC AgICAgICAgICAgICAgICAgICAgICAgICAgICAgICAgICAgICAgICAgICAgICAgICAgICAgICAgICAgIC AgICANCiAgICAgICAgICAgICAgICAgICAgICAgICAgICAgICAgICAgICAgICAgICAgICAgICAgICAgIC AgICAgICAgICAgICAgICAgICAgICAgICAgICAgICAg ICAgICAgICAgICAgICANCiAgICAgICAgICAgICAgICAgICAgICAgICAgICAgICAgICAgICAgICAgICAg ICAgICAgICAgICAgICAgICAgICAgICAgICAgICAgICAgICAgICAgICAgICAgICAgICAgICAgICANCjw/ hEXuB2nsfPJhmiS8Y5wuXr8DSt3HUX8se6LrKWRhHF ddfoBiBrtWGwVbQEBhTufKFik0WRofOO1FrGXeP5MuA4RnUNuxTY2MNAQvSWBpjGPpIRAcSMWrClG3WD PpSEijXB8BfHHfVBdbMUCxJVPkIoHtHIYqMYIvKXNcQZ5UEPUaR872ugMoIa7ZYd1FTqCmRG6amv4RWX BsXKOfTanHPat7HZxhDO0JsKAqV7TnrWYrt7qLMlLg U0ZNXOS3GLIkKa7APIViBsSvMXMyNOugAY9yOKRdANTBaFldytI4VX2ADD6qujQvZA5DDzWxDb9nTn3K MkSrP4AgP8BfBVZdHCAFGEcxKD4JSUBxUGW6TWSxIMCcISLSDdRfC04nBV6EM3Szj56mUoM5FZKnMvRb VIvyRD37yCufjiQzxNVeaGwbTC4HSe1+DQplbmRvYm aHMymhKJHQNhTrRNMZRbKoNMGtMEMvWKIcFdF3CpMuMe3LYSDuHGNqZCCfRtQnEKOlEZLuOXtoUMXyNN LkQla0DFQiETSoNP8PNnMlOTNcUqG7JYGcDYYpXZLwpw9BEGMtBUSvXVD6TNOuXPNvKNXvZFreDPHzSS C3BPXeALIhVJDeSX4ZPtKtEDOsZXM6OIBsRHGgGGAp lz1UTPBaAMBcHGxwCdHkTFXpCKNjQXytLQWuWFI0EJR8IFLhCYMeZC3JBiZpKQUxRRK6TAVaWYGgHZKc rs4DQMGyHSRoAlH4ZOFmVYLmKCNaKYgiGPQdSJRrOkL7PIVbBZWzGW4PQkDrSCQxCYJ7ZGSxIMKrUYQy oz3WXZMgPDFcLEJjUSEaGOTlBNXcHTzmTLXdVAE2NX swCOLdXTPgPD5PRqBjNKYdWALmETMqANXbMYQsro5MFRLhIUXrLBK8NgMsIACnHEEtLDuiSSSeMEG8Lc FyEGVqDZMpAP1GOvNpVAWjHXA6XEHjPVBpLRLnkx2ELWUjVSKcFqlbDxSbGUCfQCAtFSdyRBZgZPD8Fa r4ULPeONVoMQ9LQeLzIWDsKRi5TOSmPIXnNNSdmx4O LLUtGYKmDWF3NHSaORDfOHPdKOteAQCfRXT2Nit2FZDnELPqSV6OVgHgETDpCCx5UdMgIGVlQTJqgd9M HHIkMJQrQKd5WhWrLITwFRHhZUvdTJOtWIX8XnLhDWOpPMUnAZ9QMvDoJGLsUVc0EOwkYEYaSGGjcl2I WGLiZKThHYN5HTPfEWBaXHNwTVqdIDPzNAIkOPL4CL AsENTpXL2RLjKeYEByIlLbLAucCYGcACFfzg7MXYPaUYQxUENxLLIvQTKyURZyXIukNLQsNHTzOWv8JR ItEWBmWV8COyUqABFsGeYyOoGuNMOpDGMiit7AEYAxRIBxMYS9HwUtNSYlSHZvUClbMTMdQTSyCqW1HG FxYXWuSF7GGsIcZWIuTyS3WczdGMVpLEVffl9DRANz LGZxNaHnMINfRIWsIDRqXKchNJNiRWVoFuY6HZXzPQJaWC5VPdIjYKNiJnGrWtCgKMIgOZTrlf9GIMHm JBKyWYIaRNMjHTKlLXEuCNr8dsXrrNLhTOu4YF1EP6HhdsLnMWVNLp3Sq629JPWgZLPhPz6TS5yaRk2u PHCtDEWETm7YMFe4FCD1JiBbQhGmBDZjTwAxQNTpUJ NfJ0XtSbHnFGQ7DPX+AObrTIesUQOuGPB5CdBkYvN0KTO5G1JzQhJ9QTS1JGQuFU1gIVJTDo2+DQpzdG EfvYxsQXWINlQ1Ryx2TSbiVYSIEx0J ID Date Data Source 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 SERVI 08/11/2020 12:00:00 AM EST eC W1 (Formerly [facility]) Name Value Range Interpretation Code Description Data Anneliese rce(s) Supporting Document(s) URINE eCW1 ([facility]) ID Date Data Source URINE CULTURE 08/11/2020 12:00:00 AM EST eCW1 ([facility]) Name Value Range Interpretation Code Description Data Anneliese rce(s) Supporting Document(s) URINE CULTURE eCW1 (Formerly [facility]) ID Date Data Source UA URINALYSIS 05/01/2020 12:00:00 AM EST eCW1 ([facility]) Name Value Range Interpretation Code Description Data Anneliese rce(s) Supporting Document(s) UA URINALYSIS eCW1 (Formerly [facility]) ID Date Data Source LIPID PANEL (CARDIAC RISK) 05/01/2020 12:00:00 AM EST eCW1 ( [facility]) Name Value Range Interpretation Code Description Data Anneliese rce(s) Supporting Document(s) Cholesterol in LDL [Mass/volume] in Serum or Plasma by calculation 165 <100 LDL CHOLESTEROL eCW1 ([facility]) Triglyceride [Mass/volume] in Serum or Plasma by calculation 493 <150 TRIGLYCERIDES LEVEL eCW1 (Formerly [facility]) 6.972 <5 CHOLESTEROL RISK RATIO eCW1 (Formerly [facility]) Cholesterol [Moles/volume] in Serum or Plasma 251 <200 CHOLESTEROL LEVEL eCW1 (Formerly [facility]) Cholesterol in HDL [Moles/volume] in Serum or Plasma 36 >40 HDL CHOLESTEROL eCW1 ([facility]ly [facility]) 215 NON-HDL-C eCW1 ([facility]) ID Date Data Source Comprehensive Metabolic Profile (CMP) 05/01/2020 12:00:00 AM EST eCW1 (Formerly [facility]) Name Value Range Interpretation Code Description Data Anneliese rce(s) Supporting Document(s) 15 7-18 BLOOD UREA NITROGEN eCW1 ([facility]) 1.43 0.70-1.30 CREATININE FOR GFR eCW1 ([facility]) > 60.0 >60 GLOMERULAR FILTRATION RATE eCW 1 ([facility]ly [facility]) 115 70-100 GLUCOSE, FASTING eCW1 ([facility]) 138 136-145 SODIUM LEVEL eCW1 ([facility]) 99 98-107 CHLORIDE LEVEL eCW1 ([facility]ly [facility]) 34 21-32 CARBON DIOXIDE LEVEL eCW1 ([facility]) 3.2 3.5-5.1 POTASSIUM SERUM eCW1 ([facility]) 9.3 8.5-10.1 CALCIUM LEVEL eCW1 ([facility]ly [facility]) 61 12-78 ALT/SGPT eCW1 ([facility]) 25 7-37 AST/SGOT eCW1 ([facility]) 72 45-117 ALKALINE PHOSPHATASE eCW1 ([facility] hospital) 0.3 0.2-1.0 BILIRUBIN,TOTAL eCW1 ([facility]) 0.9 ALBUMIN/GLOBULIN RATIO eCW1 ([facility]) 7.4 6.4-8.2 TOTAL PROTEIN eCW1 ([facility]ly [facility]) 3.5 3.2-5.2 ALBUMIN eCW1 ([facility]) ID Date Data Source [id number] 04/14/2020 12:00:00 AM EST eCW1 ([facility]) Name Value Range Interpretation Code Description Data Anneliese rce(s) Supporting Document(s) Albumin/Creatinine [Mass Ratio] in Urine 467.0 MALB URINE SIEMENS eCW1 (Formerly [facility]) Microalbumin/Creatinine [Ratio] in Urine 1056.5 0.0-30.0 HAYDEN/CREAT RATIO eCW1 (Formerly [facility]) Microalbumin/Creatinine [Mass Ratio] in Urine 44.2 CREATININE, URINE eCW1 ([facility]ly [facility]) ID Date Data Source [id number] 02/08/2020 12:00:00 AM EDT [facility] Gael ESPINOSA Patient Name: TYLER [id number] Date of : 1980[place] [address] Date of Exam: 02/08/2020#: Fax: [phone] EXAM: [...] Other findings as described above.Accredited by the [employer] in [place].LATANYA Ledezma/Phyllis you for referring KANE GRAF to our office. Electronically Signed - NOLA LOPEZ DO 02/08/20 13:43 Name Value Range Interpretation Code Description Data Anneliese rce(s) Supporting Document(s) Procedure Social History Code Duration Value Status Description Data Source(s ) Smoking 03/24/2021 12:00:00 AM EDT Never Smoked Cigarettes com pleted Never Smoked Cigarettes [facility]ENT ([facility]) Alcohol intake 02/23/2021 12:00:00 AM EDT Lifetime non-drinker (finding) completed Lifetime non-drinker (finding) [facility] Alcohol intake 11/04/2020 12:00:00 AM EDT Lifetime non-drinker (finding) completed Lifetime non-drinker (finding) [facility] Smoking 09/17/2020 12:00:00 AM EDT Never Smoker completed Never S catarina eCW1 ([facility]ly [facility]) Smoking 09/05/2020 12:00:00 AM EDT Never Smoker completed Never S moker eCW1 ([facility]ly [facility]) Smoking 08/11/2020 12:00:00 AM EST Never Smoker completed Never S moker eCW1 ([facility]ly [facility]) Smoking 08/11/2020 12:00:00 AM EST Never Smoker completed Never S moker eCW1 ([facility]ly [facility]) Smoking 08/11/2020 12:00:00 AM EST Never Smoker completed Never S moker eCW1 ([facility]ly [facility]) Smoking 08/11/2020 12:00:00 AM EST Never Smoker completed Never S moker eCW1 ([facility]ly [facility]) Smoking 08/11/2020 12:00:00 AM EST Never Smoker completed Never S moker eCW1 ([facility]) Smoking 07/03/2020 12:00:00 AM EST Never Smoker completed Never S moker eCW1 ([facility]) Smoking 07/03/2020 12:00:00 AM EST Never Smoker completed Never S moker eCW1 ([facility]) Smoking 07/03/2020 12:00:00 AM EST Never Smoker completed Never S moker eCW1 ([facility]ly [facility]) Smoking 07/03/2020 12:00:00 AM EST Never Smoker completed Never S moker eCW1 ([facility]) Smoking 07/03/2020 12:00:00 AM EST Never Smoker completed Never S moker eCW1 ([facility]) Smoking 07/03/2020 12:00:00 AM EST Never Smoker completed Never S moker eCW1 ([facility]) Smoking 07/03/2020 12:00:00 AM EST Never Smoker completed Never S moker eCW1 ([facility]) Smoking 07/03/2020 12:00:00 AM EST Never Smoker completed Never S moker eCW1 ([facility]ly [facility]) Smoking 07/03/2020 12:00:00 AM EST Never Smoker completed Never S moker eCW1 ([facility]ly [facility]) Alcohol intake 07/01/2020 12:00:00 AM EST Never completed [facility] Smoking 07/01/2020 12:00:00 AM EST Never smoker completed Never s moker [facility] Alcohol intake 06/03/2020 12:00:00 AM EST Never completed [facility] Smoking 06/03/2020 12:00:00 AM EST Never smoker completed Never s moker [facility] Smoking 06/02/2020 12:00:00 AM EST Never Smoker completed Never S moker eCW1 ([facility]) Smoking 06/02/2020 12:00:00 AM EST Never Smoker completed Never S moker eCW1 ([facility]) Smoking 06/02/2020 12:00:00 AM EST Never Smoker completed Never S moker eCW1 ([facility]) Smoking 06/02/2020 12:00:00 AM EST Never Smoker completed Never S moker eCW1 ([facility]ly [facility]) Tobacco use and exposure 05/07/2020 12:00:00 AM EST Current user co mpleted Current user [facility] Smoking 05/07/2020 12:00:00 AM EST Never smoker completed Never s moker [facility] Alcohol intake 05/07/2020 12:00:00 AM EST Never completed [facility] Smoking 05/07/2020 12:00:00 AM EST Never smoker completed Never s moker [facility] Smoking 05/01/2020 12:00:00 AM EST Never Smoker completed Never S moker eCW1 ([facility]) Smoking 05/01/2020 12:00:00 AM EST Never Smoker completed Never S moker eCW1 ([facility]) Smoking 04/10/2020 12:00:00 AM EDT Never Smoker completed Never S moker eCW1 ([facility]) Smoking 04/10/2020 12:00:00 AM EDT Never Smoker completed Never S moker eCW1 ([facility]) Smoking 04/10/2020 12:00:00 AM EDT Never Smoker completed Never S moker eCW1 ([facility]) Smoking 04/10/2020 12:00:00 AM EDT Never Smoker completed Never S moker eCW1 ([facility]) Smoking 04/03/2020 12:00:00 AM EDT Never Smoker completed Never S moker eCW1 ([facility]) Smoking 04/03/2020 12:00:00 AM EDT Never Smoker completed Never S moker eCW1 ([facility]) Smoking 04/03/2020 12:00:00 AM EDT Never Smoker completed Never S moker eCW1 ([facility]) Smoking 04/03/2020 12:00:00 AM EDT Never Smoker completed Never S moker eCW1 ([facility]) Vital Signs ID Date Data Source UNK Name Value Range Interpretation Code Description Data Source(s) Systolic blood pressure 120 mm[Hg] 120 mm[Hg] M [facility] ([facility]) Diastolic blood pressure 70 mm[Hg] 70 mm[Hg] [facility] ([facility]) Heart rate 67 /min 67 /min [facility] ([facility]) Oxygen saturation in Arterial blood by Pulse oximetry 98 % 98 % [facility] ([facility]) Body height 75 [in_i] 75 [in_i] [facility] ([facility]) 6'3" Body weight 260.00 [lb_av] 260.00 [lb_av] [facility] Body mass index (BMI) [Ratio] 32.5 kg/m2 32.5 k g/m2 [facility] ([facility]) [place] body weight 196 [lb_av] 196 [lb_av] [facility] T ([facility]) Body weight 117.936 kg 117.936 kg [facility] ([facility]) Body surface area Derived from formula 2.45 m2 2.45 m2 [facility] ([facility]) Heart rate 68 /min 68 /min [facility] Systolic blood pressure 160 mm[Hg] 160 mm[Hg] [facility] Body height 190.5 cm 190.5 cm [facility] Diastolic blood pressure 110 mm[Hg] 110 mm[Hg] [facility] Body weight 119.75 kg 119.75 kg [facility] Oxygen saturation in Arterial blood by Pulse oximetry 97 % 97 % [facility] Body mass index (BMI) [Ratio] 33.00 kg/m2 33.00 kg/m2 [facility] [place] body weight 196 [lb_av] 196 [lb_av] MEDEN T ([facility], ) Body weight 119.297 kg 119.297 kg [facility] ([facility]) Body surface area Derived from formula 2.47 m2 2.47 m2 [facility] ([facility]) Systolic blood pressure 142 mm[Hg] 142 mm[Hg] M [facility] ([facility]) Diastolic blood pressure 84 mm[Hg] 84 mm[Hg] [facility] ([facility]) Heart rate 70 /min 70 /min [facility] ([facility]) Oxygen saturation in Arterial blood by Pulse oximetry 98 % 98 % [facility] ([facility]) Body height 75 [in_i] 75 [in_i] [facility] ([facility]) 6'3" Body weight 263.00 [lb_av] 263.00 [lb_av] MED[facility] T ([facility]) Body mass index (BMI) [Ratio] 32.9 kg/m2 32.9 k g/m2 [facility] ([facility]) Body height 74 [in_i] 74 [in_i] eCW1 ([facility]) Body weight 254.4 [lb_av] 254.4 [lb_av] eCW1 ([facility]) Body mass index (BMI) [Ratio] 32.66 kg/m2 32.66 kg/m2 W1 (Formerly [facility]) Heart rate 75 /min 75 /min eCW1 ([facility]) Respiratory rate 18 /min 18 /min eCW1 ([facility]) Body temperature 97.5 [degF] 97.5 [degF] eCW1 ( [facility]) Systolic blood pressure 130 mm[Hg] 130 mm[Hg] e CW1 ([facility]ly [facility]) Diastolic blood pressure 78 mm[Hg] 78 mm[Hg] eCW1 ([facility]) Diastolic blood pressure 70 mm[Hg] 70 mm[Hg] [facility] Systolic blood pressure 136 mm[Hg] 136 mm[Hg] [facility] Oxygen saturation in Arterial blood by Pulse oximetry 98 % 98 % [facility] Heart rate 76 /min 76 /min [facility] Body weight 116.121 kg 116.121 kg [facility] Body mass index (BMI) [Ratio] 32.00 kg/m2 32.00 kg/m2 [facility] Body weight 255 [lb_av] 255 [lb_av] eCW1 ([facility]) Body height 74 [in_i] 74 [in_i] eCW1 ([facility]) Body mass index (BMI) [Ratio] 32.74 kg/m2 32.74 kg/m2 W1 ([facility]) Heart rate 88 /min 88 /min eCW1 ([facility]) Respiratory rate 18 /min 18 /min eCW1 ([facility]) Body temperature 97.5 [degF] 97.5 [degF] eCW1 ( [facility]ly [facility]) Systolic blood pressure 156 mm[Hg] 156 mm[Hg] e CW1 ([facility]ly [facility]) Diastolic blood pressure 113 mm[Hg] 113 mm[Hg] eCW1 ([facility]ly [facility]) Body mass index (BMI) [Ratio] 32.99 kg/m2 32.99 kg/m2 W1 ([facility]ly [facility]) Body weight 257 [lb_av] 257 [lb_av] eCW1 ([facility]) Body height 74 [in_i] 74 [in_i] eCW1 ([facility]) Heart rate 118 /min 118 /min eCW1 ([facility]) Respiratory rate 18 /min 18 /min eCW1 ([facility]) Body temperature 96.4 [degF] 96.4 [degF] eCW1 ( [facility]) Systolic blood pressure 144 mm[Hg] 144 mm[Hg] e CW1 ([facility]) Diastolic blood pressure 102 mm[Hg] 102 mm[Hg] eCW1 ([facility]) Body weight 254 [lb_av] 254 [lb_av] eCW1 ([facility]) Body height 74 [in_i] 74 [in_i] eCW1 ([facility]) Body mass index (BMI) [Ratio] 32.61 kg/m2 32.61 kg/m2 eCW1 ([facility]) Heart rate 73 /min 73 /min eCW1 ([facility]) Respiratory rate 18 /min 18 /min eCW1 ([facility]) Body temperature 97.4 [degF] 97.4 [degF] eCW1 ( [facility]) Systolic blood pressure 126 mm[Hg] 126 mm[Hg] e CW1 ([facility]) Diastolic blood pressure 78 mm[Hg] 78 mm[Hg] eCW1 ([facility]ly [facility]) Systolic blood pressure 147 mm[Hg] 147 mm[Hg] [facility] Diastolic blood pressure 100 mm[Hg] 100 mm[Hg] [facility] Heart rate 87 /min 87 /min [facility] Body height 190.5 cm 190.5 cm [facility] Body weight 117.482 kg 117.482 kg [facility] Oxygen saturation in Arterial blood by Pulse oximetry 98 % 98 % [facility] Body mass index (BMI) [Ratio] 32.37 kg/m2 32.37 kg/m2 [facility] Body mass index (BMI) [Ratio] 32.0 kg/m2 32.0 k g/m2 MEDENT ([facility], ) Body height 75 [in_i] 75 [in_i] MEDKEVIN ([facility], ) 6'3" Body weight 256.38 [lb_av] 256.38 [lb_av] MEDEN T ([facility], ) [place] body weight 196 [lb_av] 196 [lb_av] MEDEN T ([facility]) Body weight 116.292 kg 116.292 kg MEDENT ([facility]) Body surface area Derived from formula 2.44 m2 2.44 m2 MEDENT ([facility]) Heart rate 74 /min 74 /min MEDENT ([facility]) Systolic blood pressure 171 mm[Hg] 171 mm[Hg] M EDENT ([facility]) Diastolic blood pressure 101 mm[Hg] 101 mm[Hg] MEDENT ([facility]) Body height 75 [in_i] 75 [in_i] MEDENT ([facility]) 6'3" Body weight 256.38 [lb_av] 256.38 [lb_av] MEDEN T ([facility]) Body mass index (BMI) [Ratio] 32.0 kg/m2 32.0 k g/m2 MEDENT ([facility]) [place] body weight 196 [lb_av] 196 [lb_av] MEDEN T ([facility]) Body weight 116.292 kg 116.292 kg MEDENT ([facility]) Body surface area Derived from formula 2.44 m2 2.44 m2 [facility] ([facility]) Body temperature 97.7 [degF] 97.7 [degF] MEDENT ([facility]) Systolic blood pressure 150 mm[Hg] 150 mm[Hg] [facility] Diastolic blood pressure 100 mm[Hg] 100 mm[Hg] [facility] Heart rate 96 /min 96 /min [facility] Body weight 117.935 kg 117.935 kg [facility] Body mass index (BMI) [Ratio] 32.50 kg/m2 32.50 kg/m2 [facility] Oxygen saturation in Arterial blood by Pulse oximetry 98 % 98 % [facility] Diastolic blood pressure 80 mm[Hg] 80 mm[Hg] [facility] Heart rate 75 /min 75 /min [facility] Body height 190.5 cm 190.5 cm [facility] Body weight 117.482 kg 117.482 kg [facility] Body mass index (BMI) [Ratio] 32.37 kg/m2 32.37 kg/m2 [facility] Oxygen saturation in Arterial blood by Pulse oximetry 98 % 98 % [facility] Systolic blood pressure 140 mm[Hg] 140 mm[Hg] [facility] Body weight 255 [lb_av] 255 [lb_av] eCW1 ([facility]) Body height 74 [in_i] 74 [in_i] W1 ([facility]) Body mass index (BMI) [Ratio] 32.74 kg/m2 32.74 kg/m2 W1 ([facility]) Heart rate 67 /min 67 /min eCW1 ([facility]) Respiratory rate 18 /min 18 /min eCW1 ([facility]) Body temperature 97.1 [degF] 97.1 [degF] eCW1 ( [facility]) Systolic blood pressure 128 mm[Hg] 128 mm[Hg] e CW1 ([facility]) Diastolic blood pressure 68 mm[Hg] 68 mm[Hg] eCW1 ([facility]) Systolic blood pressure 132 mm[Hg] 132 mm[Hg] [facility] Diastolic blood pressure 78 mm[Hg] 78 mm[Hg] [facility] Heart rate 78 /min 78 /min [facility] Body height 190.5 cm 190.5 cm [facility] Body weight 115.214 kg 115.214 kg [facility] Body mass index (BMI) [Ratio] 31.75 kg/m2 31.75 kg/m2 [facility] Oxygen saturation in Arterial blood by Pulse oximetry 97 % 97 % [facility] Body weight 253 [lb_av] 253 [lb_av] eCW1 ([facility]) Heart rate 85 /min 85 /min eCW1 ([facility]) Body height 74 [in_i] 74 [in_i] eCW1 ([facility]) Body mass index (BMI) [Ratio] 32.48 kg/m2 32.48 kg/m2 W1 ([facility]) Body temperature 97.0 [degF] 97.0 [degF] eCW1 ( [facility]) Respiratory rate 18 /min 18 /min eCW1 ([facility]) Diastolic blood pressure 130 mm[Hg] 130 mm[Hg] eCW1 ([facility]) Systolic blood pressure 178 mm[Hg] 178 mm[Hg] e CW1 ([facility]) Systolic blood pressure 145 mm[Hg] 145 mm[Hg] [facility] Diastolic blood pressure 86 mm[Hg] 86 mm[Hg] [facility] Body weight 115.214 kg 115.214 kg [facility] Heart rate 78 /min 78 /min [facility] Body height 190.5 cm 190.5 cm [facility] Body mass index (BMI) [Ratio] 31.75 kg/m2 31.75 kg/m2 [facility] Oxygen saturation in Arterial blood by Pulse oximetry 99 % 99 % [facility] Body temperature 97.1 [degF] 97.1 [degF] MEDENT ([facility] ) Body weight 261 [lb_av] 261 [lb_av] eCW1 ([facility]) Body height 74 [in_i] 74 [in_i] eCW1 ([facility]) Body mass index (BMI) [Ratio] 33.51 kg/m2 33.51 kg/m2 eCW1 ([facility]) Heart rate 86 /min 86 /min eCW1 ([facility]) Respiratory rate 20 /min 20 /min eCW1 ([facility]) Body temperature 96.4 [degF] 96.4 [degF] eCW1 ( [facility]) Systolic blood pressure 134 mm[Hg] 134 mm[Hg] e CW1 ([facility]) Diastolic blood pressure 84 mm[Hg] 84 mm[Hg] eCW1 ([facility]) Body weight 258.2 [lb_av] 258.2 [lb_av] eCW1 ([facility]) Body height 74 [in_i] 74 [in_i] eCW1 ([facility]) Body mass index (BMI) [Ratio] 33.15 kg/m2 33.15 kg/m2 eCW1 ([facility]) Heart rate 73 /min 73 /min eCW1 ([facility]) Respiratory rate 18 /min 18 /min eCW1 ([facility]) Body temperature 97.1 [degF] 97.1 [degF] eCW1 ( [facility]) Systolic blood pressure 142 mm[Hg] 142 mm[Hg] e CW1 ([facility]) Diastolic blood pressure 82 mm[Hg] 82 mm[Hg] eCW1 ([facility]) Body weight 261 [lb_av] 261 [lb_av] eCW1 ([facility]) Body height 74 [in_i] 74 [in_i] eCW1 ([facility]) Body mass index (BMI) [Ratio] 33.51 kg/m2 33.51 kg/m2 eCW1 ([facility]) Heart rate 80 /min 80 /min eCW1 ([facility]) Respiratory rate 19 /min 19 /min eCW1 ([facility]) Body temperature 96.0 [degF] 96.0 [degF] eCW1 ( [facility]) Systolic blood pressure 176 mm[Hg] 176 mm[Hg] e CW1 ([facility]) Diastolic blood pressure 108 mm[Hg] 108 mm[Hg] eCW1 ([facility]) Body weight 262.4 [lb_av] 262.4 [lb_av] eCW1 ([facility]) Body height 74 [in_i] 74 [in_i] eCW1 ([facility]) Body mass index (BMI) [Ratio] 33.69 kg/m2 33.69 kg/m2 eCW1 ([facility]) Heart rate 85 /min 85 /min eCW1 ([facility]) Respiratory rate 18 /min 18 /min eCW1 ([facility]) Body temperature 96.7 [degF] 96.7 [degF] eCW1 ( [facility]) Systolic blood pressure 144 mm[Hg] 144 mm[Hg] e CW1 ([facility]) Diastolic blood pressure 90 mm[Hg] 90 mm[Hg] eCW1 ([facility]) Patient Treatment Plan of Care Planned Activity Planned Date Details Description Data Source (s) Aspirin 81 MG Delayed Release Oral Tablet 02/23/2021 12:00:00 AM ED T [facility] Lisinopril 20 MG Oral Tablet 02/23/2021 12:00:00 AM EDT [facility] Lisinopril 40 MG Oral Tablet 11/04/2020 12:00:00 AM EDT [facility] Rosuvastatin calcium 10 MG Oral Tablet 09/22/2020 12:00:00 AM EDT [facility] Docusate Sodium 50 MG / sennosides, MCFP 8.6 MG Oral Ta blet [SENOKOT-S] 09/05/2020 12:00:00 AM EDT eCW1 ([facility]) Docusate Sodium 50 MG / sennosides, MCFP 8.6 MG Oral Ta blet [SENOKOT-S] 09/05/2020 12:00:00 AM EDT eCW1 ([facility]) Docusate Sodium 50 MG / sennosides, MCFP 8.6 MG Oral Ta blet [SENOKOT-S] 09/05/2020 12:00:00 AM EDT eCW1 ([facility]) Rosuvastatin calcium 10 MG Oral Tablet 09/01/2020 12:00:00 AM EDT [facility] Cephalexin 500 MG Oral Capsule 08/11/2020 12:00:00 AM EST eCW1 ([facility]) Cephalexin 500 MG Oral Capsule 08/11/2020 12:00:00 AM EST eCW1 ([facility]) Cephalexin 500 MG Oral Capsule 08/11/2020 12:00:00 AM EST eCW1 ([facility]) Cephalexin 500 MG Oral Capsule 08/11/2020 12:00:00 AM EST eCW1 ([facility]) Cephalexin 500 MG Oral Capsule 08/11/2020 12:00:00 AM EST eCW1 ([facility]) Hydrochlorothiazide 25 MG Oral Tablet 08/07/2020 12:00:00 AM EST [facility] Rosuvastatin calcium 10 MG Oral Tablet 07/01/2020 12:00:00 AM EST [facility] Polyvinyl Alcohol 0.014 ML/ML Ophthalmic Solution 06/17/2020 12: 00:00 AM EST [facility] Lidocaine 5 % 06/12/2020 12:00:00 AM EST eCW1 ([facility]) Lidocaine 5 % 06/12/2020 12:00:00 AM EST eCW1 ([facility]) Lidocaine 5 % 06/12/2020 12:00:00 AM EST eCW1 ([facility]) Lidocaine 5 % 06/12/2020 12:00:00 AM EST eCW1 ([facility]) Rosuvastatin calcium 10 MG Oral Tablet 06/03/2020 12:00:00 AM EST [facility] 24 HR Diltiazem Hydrochloride 180 MG Extended Release Oral Capsule 05/22/2020 12:00:00 AM EST [facility] Lisinopril 40 MG Oral Tablet 05/22/2020 12:00:00 AM EST [facility] Lisinopril 30 MG Oral Tablet 05/13/2020 12:00:00 AM EST eCW1 ([facility]) 24 HR Diltiazem Hydrochloride 180 MG Extended Release Oral Capsule 05/07/2020 12:00:00 AM EST [facility] atorvastatin 40 MG Oral Tablet 05/01/2020 12:00:00 AM EST eCW1 ([facility]ly [facility]) atorvastatin 40 MG Oral Tablet 05/01/2020 12:00:00 AM EST eCW1 ([facility]) Lisinopril 20 MG Oral Tablet 05/01/2020 12:00:00 AM EST eCW1 ([facility]) atorvastatin 40 MG Oral Tablet 05/01/2020 12:00:00 AM EST eCW1 ([facility]) Lisinopril 20 MG Oral Tablet 05/01/2020 12:00:00 AM EST eCW1 ([facility]) Lisinopril 10 MG Oral Tablet 04/22/2020 12:00:00 AM EST [facility] Lisinopril 10 MG Oral Tablet 04/21/2020 12:00:00 AM EST eCW1 ([facility]) Isosorbide Dinitrate 30 MG Oral Tablet 04/21/2020 12:00:00 AM EST eCW1 ([facility]) Lisinopril 10 MG Oral Tablet 04/21/2020 12:00:00 AM EST eCW1 ([facility]) Isosorbide Dinitrate 30 MG Oral Tablet 04/21/2020 12:00:00 AM EST eCW1 ([facility]) Isosorbide Dinitrate 30 MG Oral Tablet 04/21/2020 12:00:00 AM EST eCW1 ([facility]) Isosorbide Dinitrate 30 MG Oral Tablet 04/21/2020 12:00:00 AM EST eCW1 ([facility]) Nitroglycerin 0.3 MG Sublingual Tablet 04/09/2020 12:00:00 AM EDT [facility] Aspirin 81 MG Delayed Release Oral Tablet 04/09/2020 12:00:00 AM ED T [facility] Hydrochlorothiazide 25 MG Oral Tablet 04/09/2020 12:00:00 AM EDT [facility] atorvastatin 40 MG Oral Tablet 04/08/2020 12:00:00 AM EDT [facility] Nitroglycerin 0.3 MG Sublingual Tablet 04/08/2020 12:00:00 AM EDT eCW1 ([facility]) Nitroglycerin 0.3 MG Sublingual Tablet 04/08/2020 12:00:00 AM EDT eCW1 ([facility]) Nitroglycerin 0.3 MG Sublingual Tablet 04/08/2020 12:00:00 AM EDT eCW1 ([facility]) Nitroglycerin 0.3 MG Sublingual Tablet 04/08/2020 12:00:00 AM EDT eCW1 ([facility]) Nitroglycerin 0.3 MG Sublingual Tablet 04/08/2020 12:00:00 AM EDT eCW1 ([facility]) pregabalin 150 MG Oral Capsule 04/03/2020 12:00:00 AM EDT [facility] meloxicam 15 MG Oral Tablet 04/03/2020 12:00:00 AM EDT [facility] Aspirin 81 MG Delayed Release Oral Tablet 04/03/2020 12:00:00 AM ED T eCW1 ([facility]) atorvastatin 80 MG Oral Tablet 04/03/2020 12:00:00 AM EDT eCW1 ([facility]) Aspirin 81 MG Delayed Release Oral Tablet 04/03/2020 12:00:00 AM ED T eCW1 ([facility]) Hydrochlorothiazide 25 MG Oral Tablet 04/03/2020 12:00:00 AM EDT eCW1 ([facility]) Aspirin 81 MG Delayed Release Oral Tablet 04/03/2020 12:00:00 AM ED T eCW1 ([facility]) atorvastatin 80 MG Oral Tablet 04/03/2020 12:00:00 AM EDT eCW1 ([facility]) Hydrochlorothiazide 25 MG Oral Tablet 04/03/2020 12:00:00 AM EDT eCW1 ([facility]) Aspirin 81 MG Delayed Release Oral Tablet 04/03/2020 12:00:00 AM ED T eCW1 ([facility]) atorvastatin 80 MG Oral Tablet 04/03/2020 12:00:00 AM EDT eCW1 ([facility]) Hydrochlorothiazide 25 MG Oral Tablet 04/03/2020 12:00:00 AM EDT eCW1 ([facility]) Aspirin 81 MG Delayed Release Oral Tablet 04/03/2020 12:00:00 AM ED T eCW1 ([facility]) atorvastatin 80 MG Oral Tablet 04/03/2020 12:00:00 AM EDT eCW1 ([facility]) Hydrochlorothiazide 25 MG Oral Tablet 04/03/2020 12:00:00 AM EDT eCW1 ([facility]) atorvastatin 80 MG Oral Tablet 04/03/2020 12:00:00 AM EDT eCW1 ([facility]) Clonidine Hydrochloride 0.1 MG Oral Tablet 04/03/2020 12:00:00 AM E DT eCW1 ([facility]) Hydrochlorothiazide 25 MG Oral Tablet 04/03/2020 12:00:00 AM EDT eCW1 ([facility]) Isosorbide Dinitrate 30 MG Oral Tablet 04/03/2020 12:00:00 AM EDT eCW1 ([facility]) Aspirin 81 MG Delayed Release Oral Tablet 04/03/2020 12:00:00 AM ED T eCW1 ([facility]) atorvastatin 80 MG Oral Tablet 04/03/2020 12:00:00 AM EDT eCW1 ([facility]) Clonidine Hydrochloride 0.1 MG Oral Tablet 04/03/2020 12:00:00 AM E DT eCW1 ([facility]) Hydrochlorothiazide 25 MG Oral Tablet 04/03/2020 12:00:00 AM EDT eCW1 ([facility]) Isosorbide Dinitrate 30 MG Oral Tablet 04/03/2020 12:00:00 AM EDT eCW1 ([facility]) Aspirin 81 MG Delayed Release Oral Tablet 04/03/2020 12:00:00 AM ED T eCW1 ([facility]) atorvastatin 80 MG Oral Tablet 04/03/2020 12:00:00 AM EDT eCW1 ([facility]) Clonidine Hydrochloride 0.1 MG Oral Tablet 04/03/2020 12:00:00 AM E DT eCW1 ([facility]) Hydrochlorothiazide 25 MG Oral Tablet 04/03/2020 12:00:00 AM EDT eCW1 ([facility]) Isosorbide Dinitrate 30 MG Oral Tablet 04/03/2020 12:00:00 AM EDT eCW1 ([facility]) Aspirin 81 MG Delayed Release Oral Tablet 04/03/2020 12:00:00 AM ED T eCW1 ([facility]) Aspirin 81 MG Delayed Release Oral Tablet 04/03/2020 12:00:00 AM ED T eCW1 ([facility]) Hydrochlorothiazide 25 MG Oral Tablet 04/03/2020 12:00:00 AM EDT eCW1 ([facility]) Aspirin 81 MG Delayed Release Oral Tablet 04/03/2020 12:00:00 AM ED T eCW1 ([facility]) Hydrochlorothiazide 25 MG Oral Tablet 04/03/2020 12:00:00 AM EDT eCW1 ([facility]) albuterol (PROVENTIL HFA;VENTOLIN HFA) 108 (90 Base) M CG/ACT inhaler 03/27/2020 12:00:00 AM EDT [facility] Albuterol Sulfate HFA 108 (90 Base) MCG/ACT 03/27/2020 12:00:00 AM EDT eCW1 ([facility]) Albuterol Sulfate HFA 108 (90 Base) MCG/ACT 03/27/2020 12:00:00 AM EDT eCW1 ([facility]) Albuterol Sulfate HFA 108 (90 Base) MCG/ACT 03/27/2020 12:00:00 AM EDT eCW1 ([facility]) Omeprazole 20 MG Delayed Release Oral Capsule 02/07/2020 12:00:00 A M EDT [facility] Lisinopril 20 MG Oral Tablet [facility] Diltiazem Hydrochloride 30 MG Oral Tablet [facility]
--- NOTE | 2021-03-27 09:13 | REP ---
INDICATION: CHEST PAIN COMPARISON: 07/06/2019 TECHNIQUE: Portable AP view of the chest FINDINGS: The mediastinum and cardiac silhouette are stable and within normal limits for portable technique. The lung warner are clear without acute consolidation, effusion, or pneumothorax. Skeletal structures are intact. IMPRESSION: No acute cardiopulmonary process appreciated. <Electronically signed by Aris Strauss > 03/27/21 [id number]
[2021-03-27 09:19] LABS: BASO % 0.8 % (0.0-1.0); EOS # 0.2 10^3/uL (0.0-0.5); EOS % 4.3 % (0.0-3.0); HEMATOCRIT 47.3 % (42.0-52.0); HEMOGLOBIN 16.6 g/dl (13.5-17.5); LYMPH # 2.1 10^3/uL (1.5-5.0); LYMPH % 42.8 % (24.0-44.0); MEAN CORPUSCULAR HEMOGLOBIN 29.9 pg (27.0-33.0); MEAN CORPUSCULAR HGB CONC 35.1 g/dl (32.0-36.5); MEAN CORPUSCULAR VOLUME 85.1 fl (80.0-96.0); MONO # 0.4 10^3/uL (0.0-0.8); MONO % 7.9 % (2.0-8.0); NEUTROPHILS # 2.2 10^3/uL (1.5-8.5); NEUTROPHILS % 44.2 % (36.0-66.0); PLATELET COUNT, AUTOMATED 162 10^3/uL (150-450); RED BLOOD COUNT 5.56 10^6/uL (4.30-6.10); WHITE BLOOD COUNT 4.9 10^3/uL (4.0-10.0)
[2021-03-27 09:46] LABS: BLOOD UREA NITROGEN 14 MG/DL (7-18); CALCIUM LEVEL 9.2 MG/DL (8.5-10.1); CARBON DIOXIDE LEVEL 32 MEQ/L (21-32); CHLORIDE LEVEL 107 MEQ/L (98-107); CK-MB VALUE MASS < 1.0 NG/ML (<3.6); CPK CREATINE PHOSPHOKINASE 295 U/L (39-308); CREATININE FOR GFR 1.29 MG/DL (0.70-1.30); GLOMERULAR FILTRATION RATE > 60.0 (>60); GLUCOSE, FASTING 97 MG/DL (70-100); MB/CK RELATIVE INDEX 0.34 (< OR =4); POTASSIUM SERUM 3.9 MEQ/L (3.5-5.1); SODIUM LEVEL 141 MEQ/L (136-145); TROPONIN I < 0.02 NG/ML (< 0.10)
[2021-03-27] MEDS ORDERED: NAPR-885 PO (10:15)
[2021-03-27] MEDS ORDERED: HYDR-3363 PO (10:15)
[2021-03-27 11:58] VITALS: BP 167/88
--- NOTE | 2021-03-27 18:47 | ECGEPIP ---
[facility] - ED Test Date: 2021-03-27 Pat Name: KANE GRAF Department: Room: - Gender: Male [employer]: jevon : 1980 Requested By: JOSÉ MIGUEL Sutherland Order Number: [id number] Reading MD: Ty Campo Measurements Intervals [place] Rate: 65 P: 57 WA: 226 QRS: -18 QRSD: 92 T: 7 QT: 422 QTc: 438 Interpretive Statements Sinus rhythm with 1st degree AV block Minimal voltage criteria for LVH, may be normal variant ( R in aVL ) Inferior infarct , age undetermined SIMILAR TO 07/07/19 Electronically Signed on 03-27-2021 18:47:04 EDT by Ty Campo
== END 2021-03-27 12:03 | disposition home or self-care (01) ==
LOC: M ED 02:17
DX: M94.0 Chondrocostal junction syndrome [Tietze] (principal); F41.1 Generalized anxiety disorder; I44.0 Atrioventricular block, first degree; I10 Essential (primary) hypertension; E78.5 Hyperlipidemia, unspecified; R51.9 Headache, unspecified; M54.9 Dorsalgia, unspecified; Z88.8 Allergy status to other drugs, medicaments and biological substances; Z79.899 Other long term (current) drug therapy

== ENCOUNTER → 2021-03-30 | Outpatient (REF) | payer OTHER ==
[~2021-03-30] MED LIST changes: +HYDR-3363 PO; +NAPR-885 PO
[2021-03-30 17:47] LABS: APPEARANCE, URINE CLEAR (CLEAR); BACTERIA, URINE AUTO NEGATIVE (NEGATIVE); BILIRUBIN, URINE AUTO NEGATIVE (NEGATIVE); BLOOD, URINE BLOOD 1+ (NEGATIVE); COLOR, URINE YELLOW (YELLOW); GLUCOSE, URINE (UA) AUTO NEGATIVE (NEGATIVE); KETONE, URINE AUTO NEGATIVE (NEGATIVE); LEUKOCYTE ESTERASE, URINE AUTO NEGATIVE (NEGATIVE); NITRITE, URINE AUTO NEGATIVE (NEGATIVE); PROTEIN, URINE AUTO 3+ mg/dL (NEGATIVE); RBC, URINE AUTO 7 /HPF (0-3); SPECIFIC GRAVITY URINE AUTO 1.016 (1.002-1.035); SQUAMOUS EPITHELIAL CELL UR AU 0 /HPF (0-6); UROBILINOGEN, URINE AUTO 0.2 mg/dL (0.0-2.0); WBC, URINE AUTO 3 /HPF (0-3)
== END ==
LOC: M SMT 16:47
PROVIDERS: ATTEND Nurse Practitioner Women's Health
DX: R31.29 Other microscopic hematuria (principal)

== ENCOUNTER → 2021-04-10 | Outpatient (CLI) | payer OTHER ==
[~2021-04-10] MED LIST changes: +ISOVUE-370 76% 100ML VIAL ONE
--- NOTE | 2021-04-11 11:48 | REP ---
INDICATION: MICRO HEMATURIA. COMPARISON: None. TECHNIQUE: Imaging protocol: Computed tomography of the abdomen and pelvis without and with IV contrast. Contiguous 3 mm thick axial projection images were obtained through the abdomen and pelvis. 2D sagittal and coronal reconstructions were performed. Radiation optimization: All CT scans at this facility use at least one of these dose optimization techniques: automated exposure control; mA and/or kV adjustment per patient size (includes targeted exams where dose is matched to clinical indication); or iterative reconstruction. Contrast material: ISOVUE 370; Contrast volume: 100 ml; Contrast route: INTRAVENOUS (IV). FINDINGS: Heart and lung bases: The lung bases are clear. There are no pleural effusions. The heart size is normal. There is no pericardial effusion. Liver: Fatty infiltration. Gallbladder: The gallbladder is partially evacuated. Spleen: Normal. Pancreas: Normal. Adrenal glands: Normal. Kidneys/bladder: There is a 2 mm stone in a lower pole calyx of the left kidney. There is a 14 mm in length segment of the left ureter, centered at the L5-S1 level, demonstrating mural thickening with almost complete obliteration of the lumen (delayed postcontrast axial images 99-107; delayed postcontrast coronal image 44). There is mild ureteral and pelvocaliectasis proximal to the lesion. The right kidney and urinary bladder are unremarkable. Pelvic structures: The prostate gland is normal in size. The seminal vesicles are unremarkable. There is no free fluid the pelvis. There is no pelvic or inguinal lymphadenopathy. GI tract: There is a small hiatal hernia. There is stool throughout the colon. There is a normal appendix demonstrated. Abdominal wall and mesentery: There are no abdominal wall defects. There is no mesenteric or retroperitoneal lymphadenopathy. Abdominal aorta and vascular structures: The abdominal aorta, inferior vena cava, and portal venous system are normal. Bony structures: There are anterior osteophytes and lateral syndesmophytes in the visualized thoracic spine consistent with diffuse idiopathic skeletal hyperostosis (DISH). There is mild levoscoliosis of the thoracic spine and minimal dextroscoliosis of the lumbar spine. The SI joints and hips are normal. IMPRESSION: 1. There is focal thickening of the wall of the left ureter, as described. This could be inflammatory or neoplastic. 2. There is left nephrolithiasis without obstruction. 3. Fatty liver infiltration. 4. Small hiatal hernia. 5. Mild constipation. 6. Other findings as noted. <Electronically signed by Abner Delgado > 04/11/21 [id number]
== END ==
LOC: M PLAIMG 14:48
PROVIDERS: ATTEND Nurse Practitioner Women's Health
DX: R31.29 Other microscopic hematuria (principal); R10.9 Unspecified abdominal pain; Z87.442 Personal history of urinary calculi
CPT/HCPCS: 74178; Q9967

== ENCOUNTER → 2021-04-16 | Outpatient (REF) | payer OTHER ==
[~2021-04-16] MED LIST changes: -ISOVUE-370 76% 100ML VIAL ONE
== END ==
LOC: M LAB REF 20:10
PROVIDERS: ATTEND Nurse Practitioner Women's Health
DX: N20.0 Calculus of kidney (principal); Z01.818 Encounter for other preprocedural examination; N39.0 Urinary tract infection, site not specified

== ENCOUNTER → 2021-04-18 | Outpatient (CLI) | payer OTHER | LOC: M LABSMTC 10:09 | PROVIDERS: ATTEND Anesthesiology | DX: Z01.818 Encounter for other preprocedural examination (principal); Z11.52 Encounter for screening for COVID-19 ==

== ENCOUNTER 2021-04-22 06:22 | Day surgery (SDC) | payer OTHER ==
[~2021-04-22] VITALS: Ht 190.5 cm; Wt 115.8 kg
[~2021-04-22 06:22] MED LIST changes: +ASPI81TA26 PO; +LIDOCAINE 1% MDV 20ML VIAL SQ PRN; +LISI30TA4 PO; +LR 1,000 ML IV ONE; +OMEP-218 PO; -ROSU10TA6; +ROSU10TA6 PO; +ceFAZolin SOD 2 GM in IV 1 EA IV ONE
--- OUTSIDE RECORDS SUMMARY | 2021-04-22 06:26 | CCD ---
Author Author [facility] Organization [facility] Address Unknown Phone Unavailable Care Team Providers Care Chrome Cleaner Name Role Phone Joie Haque Unavailable PROBLEMS Type Condition ICD9-CM Code [id number] Code Onset Dates Condition S tatus W/U Status Risk SNOMED Code Notes Problem Hydronephrosis N13.30 Active confirmed 30531 006 Problem Episodic tension-type headache, not intractable G4 4.219 Active confirmed 783248048 Problem Mixed hyperlipidemia E78.2 Active confirmed 414956263 Problem Ureteral stricture, left N13.5 Active confirmed 78800455 Problem Panic disorder [episodic paroxysmal anxiety] F41.0 Active confirmed 362557655 Problem Anxiety F41.9 Active confirmed 35630850 Problem GERD without esophagitis K21.9 Active confirmed 519746617 Problem Generalized anxiety disorder F41.1 Active confirme d 90514537 Problem Secondary hypertension I15.9 Active confirmed 39823263 Problem Dyslipidemia E78.5 Active confirmed 6511138 07 Problem Dry eyes H04.123 Active confirmed 525307891 Problem PVC (premature ventricular contraction) I49.3 Active confirmed 99143917 Problem Dry eyes, bilateral H04.123 Active confirmed 687282393 Problem Nephrolithiasis N20.0 Active confirmed 9557 0007 Problem Microscopic hematuria R31.29 Active confirmed 376737416 Problem Premature ventricular contractions I49.3 Activ e confirmed 48787930 Problem Hypertension, unspecified type I10 Active confir med 47677685 Problem Essential hypertension I10 Active confirmed 55775695 Problem Accelerated essential hypertension I10 Active co nfirmed 04577732 Problem Stable angina I20.8 Active confirmed 733247 005 Problem 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 Acti ve confirmed 386152300 Problem Kidney stone on left side N20.0 Active confirmed 51724623 ALLERGIES Allergen (clinical drug ingredient) Drug/Non Drug Allergy do cumented on EMR Reaction Allergy Type Onset Date Status oxycodone Oxycodone HCl([facility] Code:[address]-35) Nausea/Vomiting Drug Allergy Active tamsulosin Tamsulosin HCl([facility] [place] Code:[address]-71) breathing issue s Drug Allergy Active ENCOUNTERS from 1978 to 2021-04-01 Encounter Location Date Provider Diagnosis [facility] [address] [phone] [place] [address] Mar, Joie Recore Microscopic hematuria R31.29 ; Abdominal pain R10.9 and History of kidney stones Z87.442 IMMUNIZATIONS No Information SOCIAL HISTORY Tobacco Use: Social History Observation Description Date Details (start date - stop date) Never Smoker Sex Assigned At : Social History Observation Description Sex Assigned At Unknown Education: Question Answer Notes 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 Sexual [...] REASON FOR REFERRAL No Information VITAL SIGNS Weight 261 lbs Mar, Weight-kg 118.39 kg Mar, Height 74 in Mar, BMI 33.51 kg/m2 Mar, Heart Rate 70 /min Mar, Respiratory Rate 18 /min Mar, Temperature 96.3 degrees Fahrenheit Mar, Oximetry 99% Mar, Blood pressure systolic 140 mm Hg Mar, Blood pressure diastolic 84 mm Hg Mar, MEDICATIONS Medication SIG (Take, Route, Frequency, Duration) Notes Start Da te End Date Status GenTeal Tears 0.1-0.3 % apply 2 drops to each eye 4 times a day as needed for dry eyes Ophthalmic four times daily as needed for 30 days 2019 Active Zofran 4 MG 1 tablet Orally four times daily as needed for 7 days Dec, Not-Taking Lisinopril 30 MG 1 tablet Orally Once a day for 30 day(s) May, Not-Taking Nitroglycerin 0.3 MG Take 1 tab Q5mins as needed chestpain total of 3 Tabs in 15mins. Sublingual PRN for chestpain for 30 days Mar, Active Ibuprofen Not-Taking Tylenol Not-Taking Lidocaine 5 % 1 patch remove after 12 hours Externally Once a day for 5 day(s) May, Not-Taking Albuterol Sulfate HFA 108 (90 Base) MCG/ACT 1 puff as needed Inhalation every 4 hrs Mar, Not-Taking traMADol HCl 50 MG as directed Orally bid Not-Taking dilTIAZem HCl 90 MG 2 tabs Orally once daily Jul, Not-Taking Isosorbide Dinitrate 30 MG 1 tablet Orally Twice a day Apr, Not-Taking Lyrica 25 MG 1 capsule Orally Once a day Not-Taking Senokot S 8.6-50 MG 1 tablet in the evening as n eeded Orally Once a day for 30 day(s) Aug, Active hydroCHLOROthiazide 25 MG 1 tablet in the morning Orally Once a day Mar, Not-Taking Omeprazole 20 MG 1 tablet 30 minutes before m orning meal Orally Once a day for 30 day(s) Jun, Not-Taking Cephalexin 500 MG 1 capsule 1 hour prior to yo ur cystoscopy Orally Once for 1 days Aug, Not-Taking Lisinopril 20 MG 1 tablet Orally Once a day Not-Taking Aspirin 81 81 MG 1 tablet Orally Once a day for 30 Active Atorvastatin Calcium 40 MG 1 tablet Orally Once a day for 30 day(s) taking MWF SAT Apr, Not-Taking DULoxetine HCl 20 MG 1 capsule Orally Twice a day As needed Not-Taking cloNIDine HCl 0.1 MG 1 tablet Orally Once a day Mar, Not-Taking Rosuvastatin Calcium 10 MG 1 tablet Orally Once a day for 30 day(s) Active Lisinopril 40 MG 1 tablet Orally Once a day for 30 day(s) Active PROCEDURES No Information RESULTS No Results REASON FOR VISIT ER f/u bilateral flank pain MEDICAL (GENERAL) HISTORY Type Description Date Medical [...] No Information FUNCTIONAL STATUS No Information ASSESSMENTS Encounter Date Diagnosis Assessment Notes Treatment Notes Treatm ent Clinical Notes Mar, Microscopic hematuria (ICD-10 - R31.29) Mar, Abdominal pain (ICD-10 - R10.9) Mar, History of kidney stones (ICD-10 - Z87.442) PLAN OF TREATMENT Treatment Notes Test Name Order Date CT Scan : Urogram (Abdomen/Pelvis) 2021-03-30 Future Test Test Name Order Date URINE CULTURE [id number] UA URINALYSIS [id number] Next Appt Details f/u with CT results Reason: Provider Name:Ronak Vargas, 2021-04-15 09: 30:00 AM, [address], , [place], [address], Provider Name:Mark Silveira, 01:45:00 PM, [address], , [place], [address], Insurance Providers Payer Name Payer Address Payer Phone Insured Name Patient Relati onship to Insured Coverage Start Date Coverage End Date [facility] [address] [facility] [phone] KANE GRAF
--- OUTSIDE RECORDS SUMMARY | 2021-04-22 06:26 | CCD ---
Author Author [facility] Organization [facility] Address Unknown Phone Unavailable Care Team Providers Care Warehouse Order Picker Name Role Phone Ronak Vargas Unavailable PROBLEMS Type Condition ICD9-CM Code [id number] Code Onset Dates Condition S tatus W/U Status Risk SNOMED Code Notes Problem Mixed hyperlipidemia E78.2 Active confirmed 883073161 Problem Ureteral stricture, left N13.5 Active confirmed 39543843 Problem Panic disorder [episodic paroxysmal anxiety] F41.0 Active confirmed 326679919 Problem Anxiety F41.9 Active confirmed 80501096 Problem GERD without esophagitis K21.9 Active confirmed 076084122 Problem Generalized anxiety disorder F41.1 Active confirme d 41327882 Problem Dry eyes, bilateral H04.123 Active confirmed 651647693 Problem Hypertension, unspecified type I10 Active confir med 02339814 Problem Premature ventricular contractions I49.3 Activ e confirmed 78825015 Problem Dry eyes H04.123 Active confirmed 965444491 Problem Secondary hypertension I15.9 Active confirmed 39835501 Problem Stable angina I20.8 Active confirmed 842954 005 Problem Kidney stone N20.0 Active confirmed 3551152 7 Problem Accelerated essential hypertension I10 Active co nfirmed 23466299 Problem Episodic tension-type headache, not intractable G4 4.219 Active confirmed 638645034 Problem UTI (urinary tract infection) N39.0 Active confirm ed 44322573 Problem Dyslipidemia E78.5 Active confirmed 1399663 07 Problem Essential hypertension I10 Active confirmed 21244924 Problem Hydronephrosis N13.30 Active confirmed 13727 006 Problem 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 Acti ve confirmed 808121708 Problem PVC (premature ventricular contraction) I49.3 Active confirmed 90358847 Problem Microscopic hematuria R31.29 Active confirmed 956527981 Problem Preop testing Z01.818 Active confirmed 29389 9001 ALLERGIES Allergen (clinical drug ingredient) Drug/Non Drug Allergy do cumented on EMR Reaction Allergy Type Onset Date Status oxycodone Oxycodone HCl([facility] Code:[address]-96) Nausea/Vomiting Drug Allergy Active tamsulosin Tamsulosin HCl([facility] Code:[address]-28) breathing issue s Drug Allergy Active ENCOUNTERS from 1978 to 2021-04-17 Encounter Location Date Provider Diagnosis [facility] Resident [address] [phone] [place] [address] Apr, Ronak Vargas IMMUNIZATIONS No Information SOCIAL HISTORY Tobacco Use: Social History Observation Description Date Details (start date - stop date) Never Smoker Sex Assigned At : Social History Observation Description Sex Assigned At Unknown Education: Question Answer Notes 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 Sexual [...] Notes Start Da te End Date Status hydroCHLOROthiazide 25 MG 1 tablet in the morning Orally Once a day Mar, Active traMADol HCl 50 MG as directed Orally bid Not-Taking Cephalexin 500 MG 1 capsule 1 hour prior to yo ur cystoscopy Orally Once for 1 days Aug, Not-Taking Zofran 4 MG 1 tablet Orally four times daily as needed for 7 days Dec, Not-Taking Albuterol Sulfate HFA 108 (90 Base) MCG/ACT 1 puff as needed Inhalation every 4 hrs Mar, Not-Taking Isosorbide Dinitrate 30 MG 1 tablet Orally Twice a day Apr, Not-Taking Lisinopril 30 MG 1 tablet Orally Once a day for 30 day(s) May, Not-Taking Omeprazole 20 MG 1 tablet 30 minutes before m orning meal Orally Once a day for 30 days Jun, Active Lyrica 25 MG 1 capsule Orally Once a day Not-Taking Nitroglycerin 0.3 MG Take 1 tab Q5mins as needed chestpain total of 3 Tabs in 15mins. Sublingual PRN for chestpain for 30 days Mar, Active Ibuprofen Not-Taking Lidocaine 5 % 1 patch remove after 12 hours Externally Once a day for 5 day(s) May, Not-Taking Atorvastatin Calcium 40 MG 1 tablet Orally Once a day for 30 day(s) taking MWF SAT Apr, Not-Taking Aspirin 81 81 MG 1 tablet Orally Once a day for 30 Active cloNIDine HCl 0.1 MG 1 tablet Orally Once a day Mar, Not-Taking Senokot S 8.6-50 MG 1 tablet in the evening as n eeded Orally Once a day for 30 day(s) Aug, Active Lisinopril 40 MG 1 tablet Orally Once a day for 30 day(s) Active DULoxetine HCl 20 MG 1 capsule Orally Twice a day As needed Not-Taking Rosuvastatin Calcium 10 MG 1 tablet Orally Once a day for 30 day(s) Active GenTeal Tears 0.1-0.3 % apply 2 drops to each eye 4 times a day as needed for dry eyes Ophthalmic four times daily as needed for 30 days 2019 Active Lisinopril 20 MG 1 tablet Orally Once a day Not-Taking Tylenol Not-Taking dilTIAZem HCl 90 MG 2 tabs Orally once daily Jul, Not-Taking PROCEDURES No Information RESULTS No Results REASON FOR VISIT No Information MEDICAL (GENERAL) HISTORY Type Description Date Medical [...] Information ASSESSMENTS No Information PLAN OF TREATMENT Medication Medication Name Sig Start Date Stop Date Omeprazole 20 MG 1 tablet 30 minutes before m orning meal Orally Once a day for 30 days Jun, Next Appt Details Provider Name:Hans Bardales, 2021-04-30 08:00:00 AM, [address] [facility] [address], , [place], [address], Provider Name:Mark Silveira, 02:00:00 PM, [address], , [place], [address], Provider Name:Ronak Vargas, 2021-06-22 09: 30:00 AM, [address] [facility] [address], , [place], [address], Provider Name:Mark Silveira, 01:45:00 PM, [address], , [place], [address], Insurance Providers Payer Name Payer Address Payer Phone Insured Name Patient Relati onship to Insured Coverage Start Date Coverage End Date [facility] [address] [facility] [phone] KANE GRAF self
--- OUTSIDE RECORDS SUMMARY | 2021-04-22 06:28 | CCD ---
Author Author [facility] Organization [facility] Address Unknown Phone Unavailable Support Name Relationship Address Phone HOMARANNEMA Next Of Kin [address] [place] [address] ST Next Of Kin Unknown Unavailable ALLIED [facility] Next Of Kin [address] [facility] [address] [place] [address] JOYA GRAF Next Of [facility] [address] [place] [address] [facility] [place] [address] SECURITY Next Of [address] [address] ICU SECURITY PRIVATE INVESTG Next Of [facility] [address] [place] [address] ICU SECURITY PRIVATE INVESTGATION Next Of [facility] [address] [place] [address] AUGUSTIN ODONNELL Next Of [facility] [address] [place] [address] Dille DDS, Noni Next Of [facility] [address] [place], [place] [phone] Dille DDS, Noni Next Of [facility] [address] [place] [address] [employer] Next Of [address] [address] MARELY GRAF Next Of [facility] [address] [place] [address] UE Next Of Kin Unknown Unavailable SECURITAS Next Of Kin [address] [place] [address] SECRURITAS Next Of Kin [address] [facility] [place] [address] ТАТЬЯНА DONAHUE Next Of Kin [address] [place] [address] MARY DONAHUE Next Of Kin [address] [place] [address] Anne Odonnellma RONY [address] [place] [address] [phone] Care Team Providers Care Medical Clerical Assistant Name Role Phone Jeremiah Mccormack MD Unavailable Unavailable Jeremiah Mccormack MD Unavailable Unavailable Jeremiah Mccormack MD Unavailable Unavailable Jeremiah Mccormack MD Unavailable Unavailable Jeremiah Mccormack MD Unavailable Unavailable Jeremiah Mccormack MD Unavailable Unavailable Jeremiah Mccormack MD Unavailable Unavailable Jeremiah Mccormack MD Unavailable Unavailable Jeremiah Mccormack MD Unavailable Unavailable Jeremiah Mccormack MD Unavailable Unavailable Jeremiah Mccormack MD Unavailable Unavailable Jeremiah Mccormack MD Unavailable Unavailable Jeremiah Mccormack MD Unavailable Unavailable Jeremiah Mccormack MD Unavailable Unavailable Jeremiah Mccormack MD Unavailable Unavailable Jeremiah Mccormack MD Unavailable Unavailable Jeremiah Mccormack MD Unavailable Unavailable Jeremiah Mccormack MD Unavailable Unavailable Jeremiah Mccormack MD Unavailable Unavailable Jeremiah Mccormack MD Unavailable Unavailable Jeremiah Mccormack MD Unavailable Unavailable Jeremiah Mccormack MD Unavailable Unavailable Jeremiah Mccormack MD Unavailable Unavailable Jeremiah Mccormack MD Unavailable Unavailable Jeremiah Mccormack MD Unavailable Unavailable Jeremiah Mccormack MD Unavailable Unavailable Jeremiah Mccormack MD Unavailable Unavailable Jeremiah Mccormack MD Unavailable Unavailable Jeremiah Mccormack MD Unavailable Unavailable Jeremiah Mccormack MD Unavailable Unavailable Jeremiah Mccormack MD Unavailable Unavailable Jeremiah Mccormack MD Unavailable Unavailable Jeremiah Mccormack MD Unavailable Unavailable Jeremiah Mccormack MD Unavailable Unavailable Jeremiah Mccormack MD Unavailable Unavailable Jeremiah Mccormack MD Unavailable Unavailable Jeremiah Mccormack MD Unavailable Unavailable Jeremiah Mccormack MD Unavailable Unavailable Jeremiah Mccormack MD Unavailable Unavailable Jeremiah Mccormack MD Unavailable Unavailable Jeremiah Mccormack MD Unavailable Unavailable Jeremiah Mccormack MD Unavailable Unavailable Jeremiah Mccormack MD Unavailable Unavailable Jeremiah Mccormack MD Unavailable Unavailable Jeremiah Mccormack MD Unavailable Unavailable Jeremiah Mccormack MD Unavailable Unavailable Jeremiah Mccormack MD Unavailable Unavailable Jeremiah Mccormack MD Unavailable Unavailable Jeremiah Mccormack MD Unavailable Unavailable Jeremiah Mccormack MD Unavailable Unavailable Jeremiah Mccormack MD Unavailable Unavailable Jeremiah Mccormack MD Unavailable Unavailable Jeremiah Mccormack MD Unavailable Unavailable Jeremiah Mccormack MD Unavailable Unavailable Jeremiah Mccormack MD Unavailable Unavailable HANK, HUY RICK BAKERY MACHINE MECHANIC SUPERVISOR-C Unavailable Unavailable HANK, HUY RICK BAKERY MACHINE MECHANIC SUPERVISOR-C Unavailable Unavailable HANK, HUY RICK BAKERY MACHINE MECHANIC SUPERVISOR-C Unavailable Unavailable HANK, HUY RICK BAKERY MACHINE MECHANIC SUPERVISOR-C Unavailable Unavailable HANK, HUY RICK BAKERY MACHINE MECHANIC SUPERVISOR-C Unavailable Unavailable HANK, HUY RICK BAKERY MACHINE MECHANIC SUPERVISOR-C Unavailable Unavailable HANK, HUY RICK BAKERY MACHINE MECHANIC SUPERVISOR-C Unavailable Unavailable HANK, HUY RICK BAKERY MACHINE MECHANIC SUPERVISOR-C Unavailable Unavailable HANK, HUY RICK BAKERY MACHINE MECHANIC SUPERVISOR-C Unavailable Unavailable HANK, HUY RICK BAKERY MACHINE MECHANIC SUPERVISOR-C Unavailable Unavailable HANK, HUY RICK BAKERY MACHINE MECHANIC SUPERVISOR-C Unavailable Unavailable HANK, HUY RICK BAKERY MACHINE MECHANIC SUPERVISOR-C Unavailable Unavailable HANK, HUY RICK BAKERY MACHINE MECHANIC SUPERVISOR-C Unavailable Unavailable HANK, HUY RICK BAKERY MACHINE MECHANIC SUPERVISOR-C Unavailable Unavailable HANK, HUY RICK BAKERY MACHINE MECHANIC SUPERVISOR-C Unavailable Unavailable HANK, HUY RICK BAKERY MACHINE MECHANIC SUPERVISOR-C Unavailable Unavailable HANK, HUY RICK BAKERY MACHINE MECHANIC SUPERVISOR-C Unavailable Unavailable Tata Rehman MD Unavailable Unavailable [...] Unavailable Unavailable Tata Rehman MD Unavailable Unavailable SleTata ram MD Unavailable Unavailable Tata Rehman MD Unavailable Unavailable Tata Rehman MD Unavailable Unavailable Tata Rehman MD Unavailable Unavailable SleTata ram MD Unavailable Unavailable Tata Rehman MD Unavailable Unavailable Tata Rehman MD Unavailable Unavailable SleTata ram MD Unavailable Unavailable Tata Rehman MD Unavailable [...] Unavailable Tata Rehman MD Unavailable Unavailable Tata Remhan MD Unavailable Unavailable Tata Rehman MD Unavailable Unavailable Tata Rehman MD Unavailable Unavailable Jose Maria, V PASQUALE PA-C Unavailable Unavailable Jose Maria, V PASQUALE PA-C Unavailable Unavailable Meridian, V PASQUALE PA-C Unavailable Unavailable Meridian, V PASQUALE PA-C Unavailable Unavailable Meridian, V PASQUALE PA-C Unavailable Unavailable Meridian, V PASQUALE PA-C Unavailable Unavailable Meridian, V PASQUALE PA-C Unavailable Unavailable Meridian, V PASQUALE PA-C Unavailable Unavailable Jose Maria, V PASQUALE PA-C Unavailable Unavailable Jose Maria, V PASQUALE PA-C Unavailable Unavailable Jose Maria, V PASQUALE PA-C Unavailable Unavailable Meridian, V PASQUALE PA-C Unavailable Unavailable Meridian, V PASQUALE PA-C Unavailable Unavailable Jose Maria, V PASQUALE PA-C Unavailable Unavailable Perez, L Marla RPA Unavailable Unavailable Perez, L Marla RPA Unavailable Unavailable Perez, L Marla RPA Unavailable Unavailable Perez, L Marla RPA Unavailable Unavailable Perez, L Marla RPA Unavailable Unavailable Eprez, L Marla RPA Unavailable Unavailable Perez, L Marla RPA Unavailable Unavailable Perez, L Marla RPA Unavailable Unavailable Perez, L Marla RPA Unavailable Unavailable Perez, L Marla RPA Unavailable Unavailable Perez, L Marla RPA Unavailable Unavailable Perez, L Marla RPA Unavailable Unavailable Eprez, L Marla RPA Unavailable Unavailable Perez, L [...] Unavailable PRESTON, M ELEANOR PA Unavailable Unavailable Ngoc JOHNSTON Unavailable Unavailable Ngoc JOHNSTON Unavailable Unavailable Re-disclosure Warning The records that [...] is protected by Article 27-F of the [facility] Public Health law. If you continue you may have access to information: Regarding HIV / AIDS; Provided by facilities licensed or operated by the [facility] Office of Mental Health; or Provided by the [facility] Office for People With Developmental Disabilities. If such information is present, then the following [facility] mandated warning applies: This information has [...] law may result in a fine or fci sentence or both. A general authorization for the release of medical or other information is NOT sufficient authorization for further disc losure. Allergies and Adverse Reactions Type Description Substance Reaction Status Data Source(s ) Propensity to adverse reactions TAMSULOSIN tamsulosin Shortness Of Breath High Active [facility] High Propensity to adverse reactions OXYCODONE Oxycodone Acti ve [facility] Propensity to adverse reactions METHOCARBAMOL Methocarbamol Palpita tions Low Active [facility] Low Family History Family Member Name Family Member Gender Family Member Status Date o f Status Description Data Source(s) Unknown Male Problem MEDENT ([facility]) Encounters Encounter Providers Location Date Indications Data Source(s ) Outpatient Attender: PASQUALE GARCIACReferrer: Heriberto VANN.RACHEL-SJP.RACHEL 04/15/2021 12:00:00 AM EDT - 04/15/2021 03:44:18 PM EDT [facility] [place] [address] [facility] [address] 04/15/2021 12:00:00 AM EDT eCW1 ([facility]) [place] [address] [facility] [address] 03/30/2021 12:00:00 AM EDT eCW1 ([facility]) Outpatient Attender: RICK Hand/[place]/Ivan/R eindl 03/24/2021 03:00:00 PM EDT [facility] ([facility]) [place] [address] [facility] [address] 03/24/2021 12:00:00 AM EDT eCW1 ([facility]) Outpatient Attender: PASQUALE BREWER-SJP.RACHEL 12:00:00 AM EDT - 02/23/2021 07:57:20 AM EDT [facility] Outpatient Attender: RICK Hand/Roque/Ivan/R eindl 02/20/2021 08:00:00 AM EDT [facility] ([facility]) Outpatient Referrer: PASQUALE LEERACHEL-SJP.RACHEL 12:00:00 AM EDT [facility] Out[place] [address] [facility] [address] 12/03/2020 12:00:00 AM EDT eCW1 ([facility]) [place] [address] [facility] [address] 11/13/2020 12:00:00 AM EDT eCW1 ([facility]) Outpatient Referrer: PASQUALE LEECT-SJP.SYR 12:00:00 AM EDT [facility] [address] [facility] [address] 11/06/2020 12:00:00 AM EDT eCW1 ([facility]) Outpatient Attender: PASQUALE LEERACHEL-SJP.RACHEL 03:10:04 PM EDT - 11/04/2020 04:32:54 PM EDT [facility] [place] [address] [facility] [address] 10/08/2020 12:00:00 AM EDT eCW1 ([facility]) [place] [address] [facility] [address] 09/17/2020 12:00:00 AM EDT eCW1 ([facility]) [place] [address] [facility] [address] 09/12/2020 12:00:00 AM EDT eCW1 ([facility]) [place] [address] [facility] [address] 09/05/2020 12:00:00 AM EDT eCW1 ([facility]) [place] [address] [facility] [address] 08/27/2020 12:00:00 AM EDT eCW1 ([facility]) Unknown [address] [facility] [address] 08/26/2020 12:00:00 AM EDT eCW1 ([facility]) [place] [address] [facility] [address] 08/14/2020 12:00:00 AM EST eCW1 ([facility]) Out[place] [address] [facility] [address] 08/11/2020 12:00:00 AM EST eCW1 ([facility]) Outpatient Attender: PASQUALE VANN.RACHEL-SJP.RACHEL 12:00:00 AM EST [facility] [place] [address] [facility] [address] 08/07/2020 12:00:00 AM EST eCW1 ([facility]) [place] [address] [facility] [address] 08/01/2020 12:00:00 AM EST eCW1 ([facility]) [place] [address] [facility] [address] 08/01/2020 12:00:00 AM EST eCW1 ([facility]) Unknown [address] [facility] [address] 07/31/2020 12:00:00 AM EST eCW1 ([facility]) Outpatient Attender: ELEANOR ESPINOSA Physical Therapy 07/14 01:30:00 PM EST [facility] ([facility]) Outpatient Attender: Marla Hand/Roque/Ivan/Amanda read 07/22/2020 10:00:00 AM EST [facility] ([facility]) Outpatient Attender: ELEANOR ESPINOSA Physical Therapy 06/14 01:45:00 PM EST [facility] ([facility]) Outpatient Attender: PASQUALE VANN.RACHEL-SJP.RACHEL 12:00:00 AM EST - 07/01/2020 11:21:21 AM EST [facility] [place] [address] [facility] [address] 06/12/2020 12:00:00 AM EST eCW1 ([facility]) [place] [address] [facility] [address] 06/11/2020 12:00:00 AM EST [facility]CW1 ([facility]) [place] [address] [facility] [address] 06/09/2020 12:00:00 AM EST eCW1 ([facility]) Outpatient Attender: PASQUALE LEERACHEL-SJP.RACHEL 12:00:00 AM EST - 06/03/2020 04:22:22 PM EST [facility] [place] [address] [facility] [address] 06/02/2020 12:00:00 AM EST eCW1 ([facility]) OFFICE OUTPATIENT VISIT 15 MINUTES Attender: ELEANOR ESPINOSA Ph ysical Therapy 05/28/2020 12:30:00 PM EST [facility] ([facility]) Outpatient Attender: PASQUALE VANN.RACHEL-SJP.RACHEL 03/2020 12:00:00 AM EST - 05/22/2020 04:45:49 PM EST [facility] [place] [address] [facility] [address] 05/13/2020 12:00:00 AM EST eCW1 ([facility]) Outpatient Attender: Tata LEERACHEL-SJP.RACHEL 04/14 12:00:00 AM EST - 05/07/2020 03:53:02 PM EST [facility] OFFICE OUTPATIENT VISIT 15 MINUTES Attender: ELEANOR ESPINOSA Ph ysical Therapy 05/06/2020 02:45:00 PM EST [facility] ([facility]) [place] [address] [facility] [address] 05/01/2020 12:00:00 AM EST [facility]CW1 ([facility]) Unknown [address] [facility] [address] 04/22/2020 12:00:00 AM EST eCW1 ([facility]) Unknown [address] [facility] [place] [address] 04/21/2020 12:00:00 AM EST eCW1 ([facility]) Unknown [address] [facility] [place] [address] 04/21/2020 12:00:00 AM EST eCW1 ([facility]) [place] [address] [facility] [address] 04/10/2020 12:00:00 AM EDT eCW1 ([facility]) [place] [address] [facility] [address] 04/09/2020 12:00:00 AM EDT eCW1 ([facility]) [place] [address] [facility] [address] 04/08/2020 12:00:00 AM EDT eCW1 ([facility]) Unknown [address] [facility] [address] 04/05/2020 12:00:00 AM EDT eCW1 ([facility]) Unknown [address] [facility] [address] 04/04/2020 12:00:00 AM EDT eCW1 ([facility]) Out[place] [address] [facility] [place] [address] 04/03/2020 12:00:00 AM EDT eCW1 ([facility]) Out[place] [address] [facility] [address] 03/27/2020 12:00:00 AM EDT eCW1 ([facility]) OFFICE OUTPATIENT VISIT 15 MINUTES Attender: ELEANOR ESPINOSA Ph ysical Therapy 03/25/2020 11:00:00 AM EDT [facility] ([facility]) Immunizations Vaccine Date Status Description Data Source(s) COVID-19 VACC, MRNA(PFIZER)/PF 04/15/2021 12:00:00 AM EDT completed [facility] COVID-19 VACCINE Pfizer 04/15/2021 12:00:00 AM EDT completed [facility] Vaccine Series Complete: NOThis Data was Submitted to [facility] Via [employer] INFLUENZA VIRUS VACCINE QUADRIVALENT 2019- (6 MOS AN D UP) 02/28/2020 12:00:00 AM EDT completed [facility] Medications Medication Brand Name Start Date Product Form Dose Route Admi nistrative Instructions Pharmacy Instructions Status Indications Reaction Description Data Source(s) 30 mg 04/15/2021 12:00:00 AM EDT tablet 30 TAKE ONE TABLET BY MOUTH EVERY DAY TAKE ONE TABLET BY MOUTH EVERY DAY SOLD: 04/15/2021 [facility] 20 mg 04/15/2021 12:00:00 AM EDT capsule,delayed release (DR/EC) 30 TAKE ONE TABLET BY MOUTH ONCE DAILY - 30 MINUTES BEFORE MORNING MEAL TAKE ONE TABLET BY MOUTH ONCE DAILY - 30 MINUTES BEFORE MORNING MEAL SOLD: 04/15/2021 [facility] Lisinopril 30 MG Oral Tablet lisinopril (PRINIVIL,ZEST RIL) 30 MG tablet lisinopril (PRINIVIL,ZESTRIL) 30 MG tablet 04/15/2021 12:00:00 AM EDT 30 mg Oral active Take 1 tablet (30 mg total) by mouth daily [facility] Hydrochlorothiazide 25 MG Oral Tablet hy drochlorothiazide (HYDRODIURIL) 25 MG tablet hydrochlorothiazide (HYDRODIURIL) 25 MG tablet 12:00:00 AM EDT active [facility] 500 mg 03/27/2021 12:00:00 AM EDT tablet 20 TAKE ONE TABLET BY MOUTH TWICE A DAY FOR PAIN TAKE ONE TABLET BY MOUTH TWICE A DAY FOR PAIN SOLD: 03/27/2021 [facility] 60 mcg (15 mcg x 4)/0.5 mL 03/21/2021 12:00:00 AM EDT suspen nasim 0 DIRECTED IN THE RIGHT ARM DIRECTED IN THE RIGHT ARM SOLD: 03/21/2021 [facility] 81 mg 03/04/2021 12:00:00 AM EDT tablet,delayed release (DR/EC) 30 TAKE ONE TABLET BY MOUTH EVERY DAY TAKE ONE TABLET BY MOUTH EVERY DAY SOLD: 03/04/2021 [facility] Lisinopril 20 MG Oral Tablet lisinopril (PRINIVIL,ZEST RIL) 20 MG tablet lisinopril (PRINIVIL,ZESTRIL) 20 MG tablet 02/23/2021 12:00:00 AM EDT 20 mg Oral aborted Take 1 tablet (20 mg total) by mouth daily [facility] Aspirin 81 MG Delayed Release Oral Table t SM Aspirin Adult Low Strength 81 MG EC tablet SM Aspirin Adult Low Strength 81 MG EC tablet 02/23/2021 12: 00:00 AM EDT 81 mg Oral active Take 1 tablet (8 1 mg total) by mouth daily [facility] 20 mg 02/23/2021 12:00:00 AM EDT [...] ONE TABLET BY MOUTH EVERY D AY [facility] Rosuvastatin calcium 10 MG Oral Tablet [...] (10 mg total) by m outh nightly [facility] 8.6-50 mg 09/06/2020 12:00:00 AM EDT tablet 30 TAKE ONE TABLET BY MOUTH EVERY EVENING NEEDED TAKE ONE TABLET BY MOUTH EVERY EVENING NEEDED SOLD: 09/06/2020 [facility] Docusate Sodium 50 MG / sennosides, CORRECTION 8.6 MG Oral Tablet [SENOKOT-S] Senokot S 8.6-50 MG Senokot S 8.6-50 MG 09/05/2020 12:00:00 AM EDT 1 .0 {tablet_in_the_evening_as_needed} active Senokot S 8.6-50 MG eCW1 ([facility]) Docusate Sodium 50 MG / sennosides, CORRECTION 8.6 MG Oral Tablet [SENOKOT-S] Senokot S 8.6-50 MG Senokot S 8.6-50 MG 09/05/2020 12:00:00 AM EDT 1 .0 {tablet_in_the_evening_as_needed} active Senokot S 8.6-50 MG eCW1 ([facility]) Docusate Sodium 50 MG / sennosides, CORRECTION 8.6 MG Oral Tablet [SENOKOT-S] Senokot S 8.6-50 MG Senokot S 8.6-50 MG 09/05/2020 12:00:00 AM EDT 1 .0 {tablet_in_the_evening_as_needed} active Senokot S 8.6-50 MG eCW1 ([facility]) Docusate Sodium 50 MG / sennosides, CORRECTION 8.6 MG Oral Tablet [SENOKOT-S] Senokot S 8.6-50 MG Senokot S 8.6-50 MG 09/05/2020 12:00:00 AM EDT 1 .0 {tablet_in_the_evening_as_needed} active Senokot S 8.6-50 MG eCW1 ([facility]) Docusate Sodium 50 MG / sennosides, CORRECTION 8.6 MG Oral Tablet [SENOKOT-S] Senokot S 8.6-50 MG Senokot S 8.6-50 MG 09/05/2020 12:00:00 AM EDT 1 .0 {tablet_in_the_evening_as_needed} active Senokot S 8.6-50 MG eCW1 ([facility]) Docusate Sodium 50 MG / sennosides, CORRECTION 8.6 MG Oral Tablet [SENOKOT-S] Senokot S 8.6-50 MG Senokot S 8.6-50 MG 09/05/2020 12:00:00 AM EDT 1 .0 {tablet_in_the_evening_as_needed} active Senokot S 8.6-50 MG eCW1 ([facility]) Docusate Sodium 50 MG / sennosides, CORRECTION 8.6 MG Oral Tablet [SENOKOT-S] Senokot S 8.6-50 MG Senokot S 8.6-50 MG 09/05/2020 12:00:00 AM EDT 1 .0 {tablet_in_the_evening_as_needed} active Senokot S 8.6-50 MG eCW1 ([facility]) Docusate Sodium 50 MG / sennosides, CORRECTION 8.6 MG Oral Tablet [SENOKOT-S] Senokot S 8.6-50 MG Senokot S 8.6-50 MG 09/05/2020 12:00:00 AM EDT 1 .0 {tablet_in_the_evening_as_needed} active Senokot S 8.6-50 MG eCW1 ([facility]) Docusate Sodium 50 MG / sennosides, CORRECTION 8.6 MG Oral Tablet [SENOKOT-S] Senokot S 8.6-50 MG Senokot S 8.6-50 MG 09/05/2020 12:00:00 AM EDT 1 .0 {tablet_in_the_evening_as_needed} active Senokot S 8.6-50 MG eCW1 ([facility]) Docusate Sodium 50 MG / sennosides, CORRECTION 8.6 MG Oral Tablet [SENOKOT-S] Senokot S 8.6-50 MG Senokot S 8.6-50 MG 09/05/2020 12:00:00 AM EDT 1 .0 {tablet_in_the_evening_as_needed} active Senokot S 8.6-50 MG eCW1 ([facility]) Rosuvastatin calcium 10 MG Oral Tablet rosuvastatin (C RESTOR) 10 MG tablet rosuvastatin (CRESTOR) 10 MG tablet 09/01/2020 12:00:00 AM EDT 10 mg Oral aborted Take 1 tablet (10 mg total) by m outh nightly [facility] Rosuvastatin calcium 10 MG Oral Tablet ROSUVASTATIN CALCIUM 09/01/2020 12:00:00 AM EDT tablet 30 TAKE ONE TABLET BY MOUTH NIG HTLY TAKE ONE TABLET BY MOUTH NIGHTLY SOLD: 09/01/2020 [facility] Cephalexin 500 MG Oral Capsule Cephalexin 500 MG 08/11/2020 12:00:00 AM EST active Cephalexin 500 MG eC W1 ([facility]) Cephalexin 500 MG Oral Capsule Cephalexin 500 MG 08/11/2020 12:00:00 AM EST suspended Cephalexin 500 MG eC W1 ([facility]) Cephalexin 500 MG Oral Capsule Cephalexin 500 MG 08/11/2020 12:00:00 AM EST suspended Cephalexin 500 MG eC W1 ([facility]) Cephalexin 500 MG Oral Capsule Cephalexin 500 MG 08/11/2020 12:00:00 AM EST active Cephalexin 500 MG eC W1 ([facility]) Cephalexin 500 MG Oral Capsule Cephalexin 500 MG 08/11/2020 12:00:00 AM EST suspended Cephalexin 500 MG eC W1 ([facility]) Cephalexin 500 MG Oral Capsule Cephalexin 500 MG 08/11/2020 12:00:00 AM EST suspended Cephalexin 500 MG eC W1 ([facility]) Cephalexin 500 MG Oral Capsule Cephalexin 500 MG 08/11/2020 12:00:00 AM EST suspended Cephalexin 500 MG eC W1 ([facility]) Cephalexin 500 MG Oral Capsule Cephalexin 500 MG 08/11/2020 12:00:00 AM EST active Cephalexin 500 MG eC W1 ([facility]) Cephalexin 500 MG Oral Capsule Cephalexin 500 MG 08/11/2020 12:00:00 AM EST suspended Cephalexin 500 MG eC W1 ([facility]) Cephalexin 500 MG Oral Capsule Cephalexin 500 MG 08/11/2020 12:00:00 AM EST suspended Cephalexin 500 MG eC W1 ([facility]) Cephalexin 500 MG Oral Capsule CEPHALEXIN 08/11/2020 12:00:00 AM EST capsule 1 TAKE ONE CAPSULE BY MOUTH ONE HOUR PRIOR TO CYSTOSCOPY TAKE ONE CAPSULE BY MOUTH ONE HOUR PRIOR TO CYSTOSCOPY SOLD: 08/11/2020 [facility] Cephalexin 500 MG Oral Capsule Cephalexin 500 MG 08/11/2020 12:00:00 AM EST suspended Cephalexin 500 MG eC W1 ([facility]) Cephalexin 500 MG Oral Capsule Cephalexin 500 MG 08/11/2020 12:00:00 AM EST suspended Cephalexin 500 MG eC W1 ([facility]) Cephalexin 500 MG Oral Capsule Cephalexin 500 MG 08/11/2020 12:00:00 AM EST active Cephalexin 500 MG eC W1 ([facility]) Cephalexin 500 MG Oral Capsule Cephalexin 500 MG 08/11/2020 12:00:00 AM EST suspended Cephalexin 500 MG eC W1 ([facility]) Cephalexin 500 MG Oral Capsule Cephalexin 500 MG 08/11/2020 12:00:00 AM EST active Cephalexin 500 MG eC W1 ([facility]) 25 mg 08/08/2020 12:00:00 AM EST tablet 30 TAKE ONE TABLET BY MOUTH EVERY DAY TAKE ONE TABLET BY MOUTH EVERY DAY SOLD: 04/15/2021 [facility] 25 mg 08/08/2020 12:00:00 AM EST tablet 30 TAKE ONE TABLET BY MOUTH EVERY DAY TAKE ONE TABLET BY MOUTH EVERY DAY SOLD: 08/11/2020 [facility] Hydrochlorothiazide 25 MG Oral Tablet hy drochlorothiazide (HYDRODIURIL) 25 MG tablet hydrochlorothiazide (HYDRODIURIL) 25 MG tablet 12:00:00 AM EST 25 mg Oral active Take 1 tablet (25 mg total) by mouth daily [facility] 81 mg 08/01/2020 12:00:00 AM EST [...] BY MOUTH EVERY DAY SOLD: 12/23/2020 [facility] Rosuvastatin calcium 10 MG Oral Tablet rosuvastatin (C RESTOR) 10 MG tablet rosuvastatin (CRESTOR) 10 MG tablet 07/01/2020 12:00:00 AM EST 10 mg Oral active Take 1 tablet (10 mg total) by m outh nightly [facility] Rosuvastatin calcium 10 MG Oral Tablet ROSUVASTATIN CALCIUM 07/01/2020 12:00:00 AM EST tablet 30 TAKE ONE TABLET BY MOUTH NIG HTLY TAKE ONE TABLET BY MOUTH NIGHTLY SOLD: 07/04/2020 [facility] Rosuvastatin calcium 10 MG Oral Tablet ROSUVASTATIN CALCIUM 07/01/2020 12:00:00 AM EST tablet 30 TAKE ONE TABLET BY MOUTH NIG HTLY TAKE ONE TABLET BY MOUTH NIGHTLY SOLD: 08/03/2020 [facility] 1.4 % 06/18/2020 12:00:00 AM EST drops 15 INSTILL ONE DROP IN EACH EYE NEEDED INSTILL ONE DROP IN EACH EYE NEEDED SOLD: 06/23/2020 [facility] Polyvinyl Alcohol 0.014 ML/ML Ophthalmic Solution ARTIFICIAL TEARS 1.4 % ophthalmic solution ARTIFICIAL TEARS 1.4 % ophthalmic solution 06/17/2020 12:00:00 AM EST active [facility] Lidocaine 5 % Lidocaine 5 % 06/12/2020 12:00:00 AM EST suspended Lidocaine 5 % eCW1 ([facility]) Lidocaine 5 % Lidocaine 5 % 06/12/2020 12:00:00 AM EST suspended Lidocaine 5 % eCW1 ([facility]) Lidocaine 5 % Lidocaine 5 % 06/12/2020 12:00:00 AM EST suspended Lidocaine 5 % eCW1 ([facility]) Lidocaine 5 % Lidocaine 5 % 06/12/2020 12:00:00 AM EST suspended Lidocaine 5 % eCW1 ([facility]) Lidocaine 5 % Lidocaine 5 % 06/12/2020 12:00:00 AM EST suspended Lidocaine 5 % eCW1 ([facility]) Lidocaine 5 % Lidocaine 5 % 06/12/2020 12:00:00 AM EST suspended Lidocaine 5 % eCW1 ([facility]) Lidocaine 5 % Lidocaine 5 % 06/12/2020 12:00:00 AM EST active Lidocaine 5 % eCW1 ([facility]) Lidocaine 5 % Lidocaine 5 % 06/12/2020 12:00:00 AM EST suspended Lidocaine 5 % eCW1 ([facility]) Lidocaine 5 % Lidocaine 5 % 06/12/2020 12:00:00 AM EST suspended Lidocaine 5 % eCW1 ([facility]) Lidocaine 5 % Lidocaine 5 % 06/12/2020 12:00:00 AM EST suspended Lidocaine 5 % eCW1 ([facility]) Lidocaine 5 % Lidocaine 5 % 06/12/2020 12:00:00 AM EST suspended Lidocaine 5 % eCW1 ([facility]) Lidocaine 5 % Lidocaine 5 % 06/12/2020 12:00:00 AM EST suspended Lidocaine 5 % eCW1 ([facility]) Lidocaine 5 % Lidocaine 5 % 06/12/2020 12:00:00 AM EST suspended Lidocaine 5 % eCW1 ([facility]) Lidocaine 5 % Lidocaine 5 % 06/12/2020 12:00:00 AM EST suspended Lidocaine 5 % eCW1 ([facility]) Lidocaine 5 % Lidocaine 5 % 06/12/2020 12:00:00 AM EST suspended Lidocaine 5 % eCW1 ([facility]) Lidocaine 5 % Lidocaine 5 % 06/12/2020 12:00:00 AM EST suspended Lidocaine 5 % eCW1 ([facility]) Lidocaine 5 % Lidocaine 5 % 06/12/2020 12:00:00 AM EST suspended Lidocaine 5 % eCW1 ([facility]) Lidocaine 5 % Lidocaine 5 % 06/12/2020 12:00:00 AM EST active Lidocaine 5 % eCW1 ([facility]) Lidocaine 5 % Lidocaine 5 % 06/12/2020 12:00:00 AM EST suspended Lidocaine 5 % eCW1 ([facility]) Lidocaine 5 % Lidocaine 5 % 06/12/2020 12:00:00 AM EST active Lidocaine 5 % eCW1 ([facility]) Lidocaine 5 % Lidocaine 5 % 06/12/2020 12:00:00 AM EST suspended Lidocaine 5 % eCW1 ([facility]) Lidocaine 5 % Lidocaine 5 % 06/12/2020 12:00:00 AM EST suspended Lidocaine 5 % eCW1 ([facility]) Lidocaine 5 % Lidocaine 5 % 06/12/2020 12:00:00 AM EST active Lidocaine 5 % eCW1 ([facility]) Rosuvastatin calcium 10 MG Oral Tablet rosuvastatin (C RESTOR) 10 MG tablet rosuvastatin (CRESTOR) 10 MG tablet 06/03/2020 12:00:00 AM EST 10 mg Oral aborted Take 1 tablet (10 mg total) by m outh nightly [facility] 10 mg 06/03/2020 12:00:00 AM EST [...] tablet (40 mg total) by mouth daily [facility] 24 HR Diltiazem Hydrochloride 180 MG Ext ended Release Oral Capsule diltiazem (CARDIZEM CD) 180 MG 24 hr capsule diltiazem (CARDIZEM CD) 180 MG 24 hr capsule 05/22/2020 12:00:00 AM EST 180 mg Oral aborted Take 1 capsule (180 mg total) by mouth daily [facility] Lisinopril 30 MG Oral Tablet Lisinopril 30 MG 05/13/2020 12:00:00 A M EST 1.0 {tablet} suspended Lisinopril 30 MG eCW1 ([facility]) Lisinopril 30 MG Oral Tablet Lisinopril 30 MG 05/13/2020 12:00:00 A M EST 1.0 {tablet} suspended Lisinopril 30 MG eCW1 ([facility]) Lisinopril 30 MG Oral Tablet Lisinopril 30 MG 05/13/2020 12:00:00 A M EST 1.0 {tablet} active Lisinopril 30 MG eCW1 ( [facility]) Lisinopril 30 MG Oral Tablet Lisinopril 30 MG 05/13/2020 12:00:00 A M EST 1.0 {tablet} suspended Lisinopril 30 MG eCW1 ([facility]) Lisinopril 30 MG Oral Tablet Lisinopril 30 MG 05/13/2020 12:00:00 A M EST 1.0 {tablet} suspended Lisinopril 30 MG eCW1 ([facility]) Lisinopril 30 MG Oral Tablet Lisinopril 30 MG 05/13/2020 12:00:00 A M EST 1.0 {tablet} suspended Lisinopril 30 MG eCW1 ([facility]) Lisinopril 30 MG Oral Tablet Lisinopril 30 MG 05/13/2020 12:00:00 A M EST 1.0 {tablet} active Lisinopril 30 MG eCW1 ( [facility]) Lisinopril 30 MG Oral Tablet Lisinopril 30 MG 05/13/2020 12:00:00 A M EST 1.0 {tablet} suspended Lisinopril 30 MG eCW1 ([facility]) Lisinopril 30 MG Oral Tablet Lisinopril 30 MG 05/13/2020 12:00:00 A M EST 1.0 {tablet} active Lisinopril 30 MG eCW1 ( [facility]) Lisinopril 30 MG Oral Tablet Lisinopril 30 MG 05/13/2020 12:00:00 A M EST 1.0 {tablet} suspended Lisinopril 30 MG eCW1 ([facility]) Lisinopril 30 MG Oral Tablet Lisinopril 30 MG 05/13/2020 12:00:00 A M EST 1.0 {tablet} active Lisinopril 30 MG eCW1 ( [facility]) Lisinopril 30 MG Oral Tablet Lisinopril 30 MG 05/13/2020 12:00:00 A M EST 1.0 {tablet} suspended Lisinopril 30 MG eCW1 ([facility]) Lisinopril 30 MG Oral Tablet Lisinopril 30 MG 05/13/2020 12:00:00 A M EST 1.0 {tablet} suspended Lisinopril 30 MG eCW1 ([facility]) Lisinopril 30 MG Oral Tablet Lisinopril 30 MG 05/13/2020 12:00:00 A M EST 1.0 {tablet} suspended Lisinopril 30 MG eCW1 ([facility]) Lisinopril 30 MG Oral Tablet Lisinopril 30 MG 05/13/2020 12:00:00 A M EST 1.0 {tablet} suspended Lisinopril 30 MG eCW1 ([facility]) Lisinopril 30 MG Oral Tablet Lisinopril 30 MG 05/13/2020 12:00:00 A M EST 1.0 {tablet} active Lisinopril 30 MG eCW1 ( [facility]) Lisinopril 30 MG Oral Tablet Lisinopril 30 MG 05/13/2020 12:00:00 A M EST 1.0 {tablet} suspended Lisinopril 30 MG eCW1 ([facility]) Lisinopril 30 MG Oral Tablet Lisinopril 30 MG 05/13/2020 12:00:00 A M EST 1.0 {tablet} suspended Lisinopril 30 MG eCW1 ([facility]) Lisinopril 30 MG Oral Tablet Lisinopril 30 MG 05/13/2020 12:00:00 A M EST 1.0 {tablet} suspended Lisinopril 30 MG eCW1 ([facility]) Lisinopril 30 MG Oral Tablet Lisinopril 30 MG 05/13/2020 12:00:00 A M EST 1.0 {tablet} suspended Lisinopril 30 MG eCW1 ([facility]) Lisinopril 30 MG Oral Tablet Lisinopril 30 MG 05/13/2020 12:00:00 A M EST 1.0 {tablet} suspended Lisinopril 30 MG eCW1 ([facility]) Lisinopril 30 MG Oral Tablet Lisinopril 30 MG 05/13/2020 12:00:00 A M EST 1.0 {tablet} suspended Lisinopril 30 MG eCW1 ([facility]) Lisinopril 30 MG Oral Tablet Lisinopril 30 MG 05/13/2020 12:00:00 A M EST 1.0 {tablet} suspended Lisinopril 30 MG eCW1 ([facility]) Lisinopril 30 MG Oral Tablet Lisinopril 30 MG 05/13/2020 12:00:00 A M EST 1.0 {tablet} suspended Lisinopril 30 MG eCW1 ([facility]) 24 HR Diltiazem Hydrochloride 180 MG Extended Release Oral Capsule DILTIAZEM HCL 05/09/2020 12:00:00 AM EST capsule,extended release 24hr 30 TAKE ONE CAPSULE BY MOUTH EVERY DAY TAKE ONE CAPSULE BY MOUTH EVERY DAY SOLD: 05/12/2020 [facility] 24 HR Diltiazem Hydrochloride 180 MG Ext ended Release Oral Capsule diltiazem (CARDIZEM CD) 180 MG 24 hr capsule diltiazem (CARDIZEM CD) 180 MG 24 hr capsule 05/07/2020 12:00:00 AM EST 180 mg Oral aborted Take 1 capsule (180 mg total) by mouth daily [facility] 20 mg 05/02/2020 12:00:00 AM EST tablet 30 TAKE ONE TABLET BY MOUTH EVERY DAY TAKE ONE TABLET BY MOUTH EVERY DAY SOLD: 05/06/2020 [facility] atorvastatin 40 MG Oral Tablet ATORVASTATIN CALCIUM 05/02/2020 1 2:00:00 AM EST tablet 30 TAKE ONE TABLET BY MOUTH EVERY D AY TAKE ONE TABLET BY MOUTH EVERY DAY SOLD: 05/06/2020 [facility] atorvastatin 40 MG Oral Tablet Atorvastatin Calcium 40 MG Atorvastatin Calcium 40 MG 05/01/2020 12:00:00 AM EST 1.0 {tablet} activ e Atorvastatin Calcium 40 MG eCW1 ([facility]) atorvastatin 40 MG Oral Tablet Atorvastatin Calcium 40 MG Atorvastatin Calcium 40 MG 05/01/2020 12:00:00 AM EST 1.0 {tablet} activ e Atorvastatin Calcium 40 MG eCW1 ([facility]) atorvastatin 40 MG Oral Tablet Atorvastatin Calcium 40 MG Atorvastatin Calcium 40 MG 05/01/2020 12:00:00 AM EST 1.0 {tablet} activ e Atorvastatin Calcium 40 MG eCW1 ([facility]) atorvastatin 40 MG Oral Tablet Atorvastatin Calcium 40 MG Atorvastatin Calcium 40 MG 05/01/2020 12:00:00 AM EST 1.0 {tablet} activ e Atorvastatin Calcium 40 MG eCW1 ([facility]) atorvastatin 40 MG Oral Tablet Atorvastatin Calcium 40 MG Atorvastatin Calcium 40 MG 05/01/2020 12:00:00 AM EST 1.0 {tablet} activ e Atorvastatin Calcium 40 MG eCW1 ([facility]) atorvastatin 40 MG Oral Tablet Atorvastatin Calcium 40 MG Atorvastatin Calcium 40 MG 05/01/2020 12:00:00 AM EST 1.0 {tablet} activ e Atorvastatin Calcium 40 MG eCW1 ([facility]) atorvastatin 40 MG Oral Tablet Atorvastatin Calcium 40 MG Atorvastatin Calcium 40 MG 05/01/2020 12:00:00 AM EST 1.0 {tablet} activ e Atorvastatin Calcium 40 MG eCW1 ([facility]) atorvastatin 40 MG Oral Tablet Atorvastatin Calcium 40 MG Atorvastatin Calcium 40 MG 05/01/2020 12:00:00 AM EST 1.0 {tablet} activ e Atorvastatin Calcium 40 MG eCW1 ([facility]) atorvastatin 40 MG Oral Tablet Atorvastatin Calcium 40 MG Atorvastatin Calcium 40 MG 05/01/2020 12:00:00 AM EST 1.0 {tablet} activ e Atorvastatin Calcium 40 MG eCW1 ([facility]) atorvastatin 40 MG Oral Tablet Atorvastatin Calcium 40 MG Atorvastatin Calcium 40 MG 05/01/2020 12:00:00 AM EST 1.0 {tablet} activ e Atorvastatin Calcium 40 MG eCW1 ([facility]) atorvastatin 40 MG Oral Tablet Atorvastatin Calcium 40 MG Atorvastatin Calcium 40 MG 05/01/2020 12:00:00 AM EST 1.0 {tablet} activ e Atorvastatin Calcium 40 MG eCW1 ([facility]) atorvastatin 40 MG Oral Tablet Atorvastatin Calcium 40 MG Atorvastatin Calcium 40 MG 05/01/2020 12:00:00 AM EST 1.0 {tablet} activ e Atorvastatin Calcium 40 MG eCW1 ([facility]) Lisinopril 20 MG Oral Tablet Lisinopril 20 MG 05/01/2020 12:00:00 A M EST 1.0 {tablet} active Lisinopril 20 MG eCW1 ( [facility]) atorvastatin 40 MG Oral Tablet Atorvastatin Calcium 40 MG Atorvastatin Calcium 40 MG 05/01/2020 12:00:00 AM EST 1.0 {tablet} suspe nded Atorvastatin Calcium 40 MG eCW1 ([facility]) atorvastatin 40 MG Oral Tablet Atorvastatin Calcium 40 MG Atorvastatin Calcium 40 MG 05/01/2020 12:00:00 AM EST 1.0 {tablet} activ e Atorvastatin Calcium 40 MG eCW1 ([facility]) atorvastatin 40 MG Oral Tablet Atorvastatin Calcium 40 MG Atorvastatin Calcium 40 MG 05/01/2020 12:00:00 AM EST 1.0 {tablet} activ e Atorvastatin Calcium 40 MG eCW1 ([facility]) atorvastatin 40 MG Oral Tablet Atorvastatin Calcium 40 MG Atorvastatin Calcium 40 MG 05/01/2020 12:00:00 AM EST 1.0 {tablet} activ e Atorvastatin Calcium 40 MG eCW1 ([facility]) atorvastatin 40 MG Oral Tablet Atorvastatin Calcium 40 MG Atorvastatin Calcium 40 MG 05/01/2020 12:00:00 AM EST 1.0 {tablet} activ e Atorvastatin Calcium 40 MG eCW1 ([facility]) atorvastatin 40 MG Oral Tablet Atorvastatin Calcium 40 MG Atorvastatin Calcium 40 MG 05/01/2020 12:00:00 AM EST 1.0 {tablet} suspe nded Atorvastatin Calcium 40 MG eCW1 ([facility]) atorvastatin 40 MG Oral Tablet Atorvastatin Calcium 40 MG Atorvastatin Calcium 40 MG 05/01/2020 12:00:00 AM EST 1.0 {tablet} activ e Atorvastatin Calcium 40 MG eCW1 ([facility]) atorvastatin 40 MG Oral Tablet Atorvastatin Calcium 40 MG Atorvastatin Calcium 40 MG 05/01/2020 12:00:00 AM EST 1.0 {tablet} activ e Atorvastatin Calcium 40 MG eCW1 ([facility]) atorvastatin 40 MG Oral Tablet Atorvastatin Calcium 40 MG Atorvastatin Calcium 40 MG 05/01/2020 12:00:00 AM EST 1.0 {tablet} activ e Atorvastatin Calcium 40 MG eCW1 ([facility]) atorvastatin 40 MG Oral Tablet Atorvastatin Calcium 40 MG Atorvastatin Calcium 40 MG 05/01/2020 12:00:00 AM EST 1.0 {tablet} activ e Atorvastatin Calcium 40 MG eCW1 ([facility]) Lisinopril 20 MG Oral Tablet Lisinopril 20 MG 05/01/2020 12:00:00 A M EST 1.0 {tablet} active Lisinopril 20 MG eCW1 ( [facility]) atorvastatin 40 MG Oral Tablet Atorvastatin Calcium 40 MG Atorvastatin Calcium 40 MG 05/01/2020 12:00:00 AM EST 1.0 {tablet} activ e Atorvastatin Calcium 40 MG eCW1 ([facility]) atorvastatin 40 MG Oral Tablet Atorvastatin Calcium 40 MG Atorvastatin Calcium 40 MG 05/01/2020 12:00:00 AM EST 1.0 {tablet} activ e Atorvastatin Calcium 40 MG eCW1 ([facility]) atorvastatin 40 MG Oral Tablet Atorvastatin Calcium 40 MG Atorvastatin Calcium 40 MG 05/01/2020 12:00:00 AM EST 1.0 {tablet} activ e Atorvastatin Calcium 40 MG eCW1 ([facility]) atorvastatin 40 MG Oral Tablet Atorvastatin Calcium 40 MG Atorvastatin Calcium 40 MG 05/01/2020 12:00:00 AM EST 1.0 {tablet} activ e Atorvastatin Calcium 40 MG eCW1 ([facility]) 20 mg 04/23/2020 12:00:00 AM EST [...] aborted Take 10 mg by mouth daily [facility] 10 mg 04/22/2020 12:00:00 AM EST tablet 30 TAKE ONE TABLET BY MOUTH EVERY DAY TAKE ONE TABLET BY MOUTH EVERY DAY SOLD: 04/23/2020 [facility] Isosorbide Dinitrate 30 MG Oral Tablet Isosorbide Dinitrate 30 MG 04/21/2020 12:00:00 AM EST 1.0 {tablet} active Is osorbide Dinitrate 30 MG eCW1 ([facility]) Isosorbide Dinitrate 30 MG Oral Tablet Isosorbide Dinitrate 30 MG 04/21/2020 12:00:00 AM EST 1.0 {tablet} active Is osorbide Dinitrate 30 MG eCW1 ([facility]) Lisinopril 10 MG Oral Tablet Lisinopril 10 MG 04/21/2020 12:00:00 A M EST 1.0 {tablet} active Lisinopril 10 MG eCW1 ( [facility]) Isosorbide Dinitrate 30 MG Oral Tablet Isosorbide Dinitrate 30 MG 04/21/2020 12:00:00 AM EST 1.0 {tablet} active Is osorbide Dinitrate 30 MG eCW1 ([facility]) Isosorbide Dinitrate 30 MG Oral Tablet Isosorbide Dinitrate 30 MG 04/21/2020 12:00:00 AM EST 1.0 {tablet} suspended Isosorbide Dinitrate 30 MG eCW1 ([facility]) Isosorbide Dinitrate 30 MG Oral Tablet Isosorbide Dinitrate 30 MG 04/21/2020 12:00:00 AM EST 1.0 {tablet} active Is osorbide Dinitrate 30 MG eCW1 ([facility]) Isosorbide Dinitrate 30 MG Oral Tablet Isosorbide Dinitrate 30 MG 04/21/2020 12:00:00 AM EST 1.0 {tablet} active Is osorbide Dinitrate 30 MG eCW1 ([facility]) Isosorbide Dinitrate 30 MG Oral Tablet Isosorbide Dinitrate 30 MG 04/21/2020 12:00:00 AM EST 1.0 {tablet} active Is osorbide Dinitrate 30 MG eCW1 ([facility]) Isosorbide Dinitrate 30 MG Oral Tablet Isosorbide Dinitrate 30 MG 04/21/2020 12:00:00 AM EST 1.0 {tablet} active Is osorbide Dinitrate 30 MG eCW1 ([facility]) Isosorbide Dinitrate 30 MG Oral Tablet Isosorbide Dinitrate 30 MG 04/21/2020 12:00:00 AM EST 1.0 {tablet} active Is osorbide Dinitrate 30 MG eCW1 ([facility]) Isosorbide Dinitrate 30 MG Oral Tablet Isosorbide Dinitrate 30 MG 04/21/2020 12:00:00 AM EST 1.0 {tablet} active Is osorbide Dinitrate 30 MG eCW1 ([facility]) Isosorbide Dinitrate 30 MG Oral Tablet Isosorbide Dinitrate 30 MG 04/21/2020 12:00:00 AM EST 1.0 {tablet} active Is osorbide Dinitrate 30 MG eCW1 ([facility]) Isosorbide Dinitrate 30 MG Oral Tablet Isosorbide Dinitrate 30 MG 04/21/2020 12:00:00 AM EST 1.0 {tablet} active Is osorbide Dinitrate 30 MG eCW1 ([facility]) Isosorbide Dinitrate 30 MG Oral Tablet Isosorbide Dinitrate 30 MG 04/21/2020 12:00:00 AM EST 1.0 {tablet} active Is osorbide Dinitrate 30 MG eCW1 ([facility]) Isosorbide Dinitrate 30 MG Oral Tablet Isosorbide Dinitrate 30 MG 04/21/2020 12:00:00 AM EST 1.0 {tablet} active Is osorbide Dinitrate 30 MG eCW1 ([facility]) Isosorbide Dinitrate 30 MG Oral Tablet Isosorbide Dinitrate 30 MG 04/21/2020 12:00:00 AM EST 1.0 {tablet} active Is osorbide Dinitrate 30 MG eCW1 ([facility]) Isosorbide Dinitrate 30 MG Oral Tablet Isosorbide Dinitrate 30 MG 04/21/2020 12:00:00 AM EST 1.0 {tablet} suspended Isosorbide Dinitrate 30 MG eCW1 ([facility]) Isosorbide Dinitrate 30 MG Oral Tablet Isosorbide Dinitrate 30 MG 04/21/2020 12:00:00 AM EST 1.0 {tablet} active Is osorbide Dinitrate 30 MG eCW1 ([facility]) Isosorbide Dinitrate 30 MG Oral Tablet Isosorbide Dinitrate 30 MG 04/21/2020 12:00:00 AM EST 1.0 {tablet} active Is osorbide Dinitrate 30 MG eCW1 ([facility]) Isosorbide Dinitrate 30 MG Oral Tablet Isosorbide Dinitrate 30 MG 04/21/2020 12:00:00 AM EST 1.0 {tablet} active Is osorbide Dinitrate 30 MG eCW1 ([facility]) Isosorbide Dinitrate 30 MG Oral Tablet Isosorbide Dinitrate 30 MG 04/21/2020 12:00:00 AM EST 1.0 {tablet} active Is osorbide Dinitrate 30 MG eCW1 ([facility]) Isosorbide Dinitrate 30 MG Oral Tablet Isosorbide Dinitrate 30 MG 04/21/2020 12:00:00 AM EST 1.0 {tablet} active Is osorbide Dinitrate 30 MG eCW1 ([facility]) Isosorbide Dinitrate 30 MG Oral Tablet Isosorbide Dinitrate 30 MG 04/21/2020 12:00:00 AM EST 1.0 {tablet} active Is osorbide Dinitrate 30 MG eCW1 ([facility]) Isosorbide Dinitrate 30 MG Oral Tablet Isosorbide Dinitrate 30 MG 04/21/2020 12:00:00 AM EST 1.0 {tablet} active Is osorbide Dinitrate 30 MG eCW1 ([facility]) Isosorbide Dinitrate 30 MG Oral Tablet Isosorbide Dinitrate 30 MG 04/21/2020 12:00:00 AM EST 1.0 {tablet} active Is osorbide Dinitrate 30 MG eCW1 ([facility]) Isosorbide Dinitrate 30 MG Oral Tablet Isosorbide Dinitrate 30 MG 04/21/2020 12:00:00 AM EST 1.0 {tablet} active Is osorbide Dinitrate 30 MG eCW1 ([facility]) Isosorbide Dinitrate 30 MG Oral Tablet Isosorbide Dinitrate 30 MG 04/21/2020 12:00:00 AM EST 1.0 {tablet} active Is osorbide Dinitrate 30 MG eCW1 ([facility]) Isosorbide Dinitrate 30 MG Oral Tablet Isosorbide Dinitrate 30 MG 04/21/2020 12:00:00 AM EST 1.0 {tablet} active Is osorbide Dinitrate 30 MG eCW1 ([facility]) Isosorbide Dinitrate 30 MG Oral Tablet Isosorbide Dinitrate 30 MG 04/21/2020 12:00:00 AM EST 1.0 {tablet} active Is osorbide Dinitrate 30 MG eCW1 ([facility]) Lisinopril 10 MG Oral Tablet Lisinopril 10 MG 04/21/2020 12:00:00 A M EST 1.0 {tablet} active Lisinopril 10 MG eCW1 ( [facility]) 30 mg 04/09/2020 12:00:00 AM EDT tablet 60 TAKE ONE TABLET BY MOUTH TWICE A DAY TAKE ONE TABLET BY MOUTH TWICE A DAY SOLD: 04/11/2020 [facility] Nitroglycerin 0.3 MG Sublingual Tablet NITROGLYCERIN [...] mg Oral aborted Take 25 mg by [facility] Aspirin 81 MG Delayed Release Oral Table t SM ASPIRIN ADULT LOW STRENGTH 81 MG EC tablet SM ASPIRIN ADULT LOW STRENGTH 81 MG EC tablet 04/09/2020 12: 00:00 AM EDT 81 mg Oral aborted Take 81 mg by mo uth daily [facility] Nitroglycerin 0.3 MG Sublingual Tablet n itroglycerin (NITROSTAT) 0.3 MG SL tablet nitroglycerin (NITROSTAT) 0.3 MG SL tablet 04/09/2020 12:00:00 A M EDT aborted TAKE ONE T ABLET UNDER THE TONGUE WHEN CHEST PAIN DOES NOT IMPROVE IN 3 MINUTES AND CAN USE SECOND DOSE IF PAIN DOES NOT RESOLVE WITH ONE [facility] 25 mg 04/09/2020 12:00:00 AM EDT [...] 30 TAKE ONE TABLET BY MOUTH ESTHELA TAKE ONE TABLET BY MOUTH EVERY DAY SOLD: 04/11/2020 [facility] Nitroglycerin 0.3 MG Sublingual Tablet Nitroglycerin 0.3 MG 04/08/2020 12:00:00 AM EDT active Nitroglycerin 0.3 MG eCW1 ([facility]) Nitroglycerin 0.3 MG Sublingual Tablet Nitroglycerin 0.3 MG 04/08/2020 12:00:00 AM EDT active Nitroglycerin 0.3 MG eCW1 ([facility]) Nitroglycerin 0.3 MG Sublingual Tablet Nitroglycerin 0.3 MG 04/08/2020 12:00:00 AM EDT active Nitroglycerin 0.3 MG eCW1 ([facility]) Nitroglycerin 0.3 MG Sublingual Tablet Nitroglycerin 0.3 MG 04/08/2020 12:00:00 AM EDT active Nitroglycerin 0.3 MG eCW1 ([facility]) Nitroglycerin 0.3 MG Sublingual Tablet Nitroglycerin 0.3 MG 04/08/2020 12:00:00 AM EDT active Nitroglycerin 0.3 MG eCW1 ([facility]) Nitroglycerin 0.3 MG Sublingual Tablet Nitroglycerin 0.3 MG 04/08/2020 12:00:00 AM EDT active Nitroglycerin 0.3 MG eCW1 ([facility]) Nitroglycerin 0.3 MG Sublingual Tablet Nitroglycerin 0.3 MG 04/08/2020 12:00:00 AM EDT active Nitroglycerin 0.3 MG eCW1 ([facility]) Nitroglycerin 0.3 MG Sublingual Tablet Nitroglycerin 0.3 MG 04/08/2020 12:00:00 AM EDT active Nitroglycerin 0.3 MG eCW1 ([facility]) atorvastatin 80 MG Oral Tablet ATORVASTATIN CALCIUM 04/08/2020 1 2:00:00 AM EDT tablet 30 TAKE ONE TABLET BY MOUTH EVERY D AY TAKE ONE TABLET BY MOUTH EVERY DAY SOLD: 04/11/2020 [facility] Nitroglycerin 0.3 MG Sublingual Tablet Nitroglycerin 0.3 MG 04/08/2020 12:00:00 AM EDT active Nitroglycerin 0.3 MG eCW1 ([facility]) Nitroglycerin 0.3 MG Sublingual Tablet Nitroglycerin 0.3 MG 04/08/2020 12:00:00 AM EDT active Nitroglycerin 0.3 MG eCW1 ([facility]) Nitroglycerin 0.3 MG Sublingual Tablet Nitroglycerin 0.3 MG 04/08/2020 12:00:00 AM EDT active Nitroglycerin 0.3 MG eCW1 ([facility]) Nitroglycerin 0.3 MG Sublingual Tablet Nitroglycerin 0.3 MG 04/08/2020 12:00:00 AM EDT active Nitroglycerin 0.3 MG eCW1 ([facility]) Nitroglycerin 0.3 MG Sublingual Tablet Nitroglycerin 0.3 MG 04/08/2020 12:00:00 AM EDT active Nitroglycerin 0.3 MG eCW1 ([facility]) Nitroglycerin 0.3 MG Sublingual Tablet Nitroglycerin 0.3 MG 04/08/2020 12:00:00 AM EDT active Nitroglycerin 0.3 MG eCW1 ([facility]) Nitroglycerin 0.3 MG Sublingual Tablet Nitroglycerin 0.3 MG 04/08/2020 12:00:00 AM EDT active Nitroglycerin 0.3 MG eCW1 ([facility]) atorvastatin 40 MG Oral Tablet atorvastatin (LIPITOR) 40 MG tablet atorvastatin (LIPITOR) 40 MG tablet 04/08/2020 12:00:00 AM EDT 40 mg Oral aborted Take 40 mg by mouth daily [facility] Nitroglycerin 0.3 MG Sublingual Tablet Nitroglycerin 0.3 MG 04/08/2020 12:00:00 AM EDT active Nitroglycerin 0.3 MG eCW1 ([facility]) Nitroglycerin 0.3 MG Sublingual Tablet Nitroglycerin 0.3 MG 04/08/2020 12:00:00 AM EDT active Nitroglycerin 0.3 MG eCW1 ([facility]) Nitroglycerin 0.3 MG Sublingual Tablet Nitroglycerin 0.3 MG 04/08/2020 12:00:00 AM EDT active Nitroglycerin 0.3 MG eCW1 ([facility]) Nitroglycerin 0.3 MG Sublingual Tablet Nitroglycerin 0.3 MG 04/08/2020 12:00:00 AM EDT active Nitroglycerin 0.3 MG eCW1 ([facility]) Nitroglycerin 0.3 MG Sublingual Tablet Nitroglycerin 0.3 MG 04/08/2020 12:00:00 AM EDT active Nitroglycerin 0.3 MG eCW1 ([facility]) Nitroglycerin 0.3 MG Sublingual Tablet Nitroglycerin 0.3 MG 04/08/2020 12:00:00 AM EDT active Nitroglycerin 0.3 MG eCW1 ([facility]) Nitroglycerin 0.3 MG Sublingual Tablet Nitroglycerin 0.3 MG 04/08/2020 12:00:00 AM EDT active Nitroglycerin 0.3 MG eCW1 ([facility]) Nitroglycerin 0.3 MG Sublingual Tablet Nitroglycerin 0.3 MG 04/08/2020 12:00:00 AM EDT active Nitroglycerin 0.3 MG eCW1 ([facility]) Nitroglycerin 0.3 MG Sublingual Tablet Nitroglycerin 0.3 MG 04/08/2020 12:00:00 AM EDT active Nitroglycerin 0.3 MG eCW1 ([facility]) Nitroglycerin 0.3 MG Sublingual Tablet Nitroglycerin 0.3 MG 04/08/2020 12:00:00 AM EDT active Nitroglycerin 0.3 MG [facility]CW1 [facility] [facility] Nitroglycerin 0.3 MG Sublingual Tablet Nitroglycerin 0.3 MG 04/08/2020 12:00:00 AM EDT active Nitroglycerin 0.3 MG eCW1 ([facility]) Nitroglycerin 0.3 MG Sublingual Tablet Nitroglycerin 0.3 MG 04/08/2020 12:00:00 AM EDT active Nitroglycerin 0.3 MG eCW1 ([facility]) Nitroglycerin 0.3 MG Sublingual Tablet Nitroglycerin 0.3 MG 04/08/2020 12:00:00 AM EDT active Nitroglycerin 0.3 MG eCW1 ([facility]) Nitroglycerin 0.3 MG Sublingual Tablet Nitroglycerin 0.3 MG 04/08/2020 12:00:00 AM EDT active Nitroglycerin 0.3 MG eCW1 ([facility]) Nitroglycerin 0.3 MG Sublingual Tablet Nitroglycerin 0.3 MG 04/08/2020 12:00:00 AM EDT active Nitroglycerin 0.3 MG eCW1 ([facility]) Nitroglycerin 0.3 MG Sublingual Tablet Nitroglycerin 0.3 MG 04/08/2020 12:00:00 AM EDT active Nitroglycerin 0.3 MG eCW1 ([facility]) Clonidine Hydrochloride 0.1 MG Oral Tablet Clonidine H Cl 0.1 MG Clonidine HCl 0.1 MG 04/03/2020 12:00:00 AM EDT 1.0 {tablet} suspe nded Clonidine HCl 0.1 MG eCW1 ([facility]) Clonidine Hydrochloride 0.1 MG Oral Tablet Clonidine H Cl 0.1 MG Clonidine HCl 0.1 MG 04/03/2020 12:00:00 AM EDT 1.0 {tablet} suspe nded Clonidine HCl 0.1 MG eCW1 ([facility]) Hydrochlorothiazide 25 MG Oral Tablet Hydrochlorothiazide 25 MG 04/03/2020 12:00:00 AM EDT 1.0 {tablet_in_the_morning} acti ve Hydrochlorothiazide 25 MG eCW1 ([facility]) Hydrochlorothiazide 25 MG Oral Tablet Hydrochlorothiazide 25 MG 04/03/2020 12:00:00 AM EDT 1.0 {tablet_in_the_morning} acti ve Hydrochlorothiazide 25 MG eCW1 ([facility]) Hydrochlorothiazide 25 MG Oral Tablet Hydrochlorothiazide 25 MG 04/03/2020 12:00:00 AM EDT 1.0 {tablet_in_the_morning} acti ve Hydrochlorothiazide 25 MG eCW1 ([facility]) atorvastatin 80 MG Oral Tablet Atorvastatin Calcium 80 MG Atorvastatin Calcium 80 MG 04/03/2020 12:00:00 AM EDT 1.0 {tablet} activ e Atorvastatin Calcium 80 MG eCW1 ([facility]) Hydrochlorothiazide 25 MG Oral Tablet Hydrochlorothiazide 25 MG 04/03/2020 12:00:00 AM EDT 1.0 {tablet_in_the_morning} acti ve Hydrochlorothiazide 25 MG eCW1 ([facility]) Hydrochlorothiazide 25 MG Oral Tablet Hydrochlorothiazide 25 MG 04/03/2020 12:00:00 AM EDT 1.0 {tablet_in_the_morning} acti ve Hydrochlorothiazide 25 MG eCW1 ([facility]) Isosorbide Dinitrate 30 MG Oral Tablet Isosorbide Dinitrate 30 MG 04/03/2020 12:00:00 AM EDT 1.0 {tablet} active Is osorbide Dinitrate 30 MG eCW1 ([facility]) Hydrochlorothiazide 25 MG Oral Tablet Hydrochlorothiazide 25 MG 04/03/2020 12:00:00 AM EDT 1.0 {tablet_in_the_morning} acti ve Hydrochlorothiazide 25 MG eCW1 ([facility]) Hydrochlorothiazide 25 MG Oral Tablet Hydrochlorothiazide 25 MG 04/03/2020 12:00:00 AM EDT 1.0 {tablet_in_the_morning} acti ve Hydrochlorothiazide 25 MG eCW1 ([facility]) Aspirin 81 MG Delayed Release Oral Tablet Aspirin 81 81 MG A spirin 81 81 MG 04/03/2020 12:00:00 AM EDT 1.0 {tablet} active Aspirin 81 81 MG eCW1 ([facility]) Hydrochlorothiazide 25 MG Oral Tablet Hydrochlorothiazide 25 MG 04/03/2020 12:00:00 AM EDT 1.0 {tablet_in_the_morning} acti ve Hydrochlorothiazide 25 MG eCW1 ([facility]) Aspirin 81 MG Delayed Release Oral Tablet Aspirin 81 81 MG A spirin 81 81 MG 04/03/2020 12:00:00 AM EDT 1.0 {tablet} active Aspirin 81 81 MG eCW1 ([facility]) Hydrochlorothiazide 25 MG Oral Tablet hydroCHLOROthiaz brennan 25 MG hydroCHLOROthiazide 25 MG 04/03/2020 12:00:00 AM EDT 1.0 {tablet_in_the_morning} suspended hydroC HLOROthiazide 25 MG eCW1 ([facility]) Aspirin 81 MG Delayed Release Oral Tablet Aspirin 81 81 MG A spirin 81 81 MG 04/03/2020 12:00:00 AM EDT 1.0 {tablet} active Aspirin 81 81 MG eCW1 ([facility]) Hydrochlorothiazide 25 MG Oral Tablet hydroCHLOROthiaz brennan 25 MG hydroCHLOROthiazide 25 MG 04/03/2020 12:00:00 AM EDT 1.0 {tablet_in_the_morning} active hydroCHL OROthiazide 25 MG eCW1 ([facility]) Hydrochlorothiazide 25 MG Oral Tablet hydroCHLOROthiaz brennan 25 MG hydroCHLOROthiazide 25 MG 04/03/2020 12:00:00 AM EDT 1.0 {tablet_in_the_morning} active hydroCHL OROthiazide 25 MG eCW1 ([facility]) Hydrochlorothiazide 25 MG Oral Tablet Hydrochlorothiazide 25 MG 04/03/2020 12:00:00 AM EDT 1.0 {tablet_in_the_morning} acti ve Hydrochlorothiazide 25 MG eCW1 ([facility]) Isosorbide Dinitrate 30 MG Oral Tablet Isosorbide Dinitrate 30 MG 04/03/2020 12:00:00 AM EDT 1.0 {tablet} active Is osorbide Dinitrate 30 MG eCW1 ([facility]) Hydrochlorothiazide 25 MG Oral Tablet hydroCHLOROthiaz brennan 25 MG hydroCHLOROthiazide 25 MG 04/03/2020 12:00:00 AM EDT 1.0 {tablet_in_the_morning} active hydroCHL OROthiazide 25 MG eCW1 ([facility]) Clonidine Hydrochloride 0.1 MG Oral Tablet cloNIDine H Cl 0.1 MG cloNIDine HCl 0.1 MG 04/03/2020 12:00:00 AM EDT 1.0 {tablet} suspe nded cloNIDine HCl 0.1 MG eCW1 ([facility]) Hydrochlorothiazide 25 MG Oral Tablet Hydrochlorothiazide 25 MG 04/03/2020 12:00:00 AM EDT 1.0 {tablet_in_the_morning} acti ve Hydrochlorothiazide 25 MG eCW1 ([facility]) Hydrochlorothiazide 25 MG Oral Tablet Hydrochlorothiazide 25 MG 04/03/2020 12:00:00 AM EDT 1.0 {tablet_in_the_morning} acti ve Hydrochlorothiazide 25 MG eCW1 ([facility]) Clonidine Hydrochloride 0.1 MG Oral Tablet Clonidine H Cl 0.1 MG Clonidine HCl 0.1 MG 04/03/2020 12:00:00 AM EDT 1.0 {tablet} activ e Clonidine HCl 0.1 MG eCW1 ([facility]) Clonidine Hydrochloride 0.1 MG Oral Tablet Clonidine H Cl 0.1 MG Clonidine HCl 0.1 MG 04/03/2020 12:00:00 AM EDT 1.0 {tablet} suspe nded Clonidine HCl 0.1 MG eCW1 ([facility]) Clonidine Hydrochloride 0.1 MG Oral Tablet Clonidine H Cl 0.1 MG Clonidine HCl 0.1 MG 04/03/2020 12:00:00 AM EDT 1.0 {tablet} suspe nded Clonidine HCl 0.1 MG eCW1 ([facility]) Clonidine Hydrochloride 0.1 MG Oral Tablet cloNIDine H Cl 0.1 MG cloNIDine HCl 0.1 MG 04/03/2020 12:00:00 AM EDT 1.0 {tablet} suspe nded cloNIDine HCl 0.1 MG eCW1 ([facility]) atorvastatin 80 MG Oral Tablet Atorvastatin Calcium 80 MG Atorvastatin Calcium 80 MG 04/03/2020 12:00:00 AM EDT 1.0 {tablet} activ e Atorvastatin Calcium 80 MG eCW1 ([facility]) atorvastatin 80 MG Oral Tablet Atorvastatin Calcium 80 MG Atorvastatin Calcium 80 MG 04/03/2020 12:00:00 AM EDT 1.0 {tablet} activ e Atorvastatin Calcium 80 MG eCW1 ([facility]) Aspirin 81 MG Delayed Release Oral Tablet Aspirin 81 81 MG A spirin 81 81 MG 04/03/2020 12:00:00 AM EDT 1.0 {tablet} active Aspirin 81 81 MG eCW1 ([facility]) Clonidine Hydrochloride 0.1 MG Oral Tablet Clonidine H Cl 0.1 MG Clonidine HCl 0.1 MG 04/03/2020 12:00:00 AM EDT 1.0 {tablet} suspe nded Clonidine HCl 0.1 MG eCW1 ([facility]) Aspirin 81 MG Delayed Release Oral Tablet Aspirin 81 81 MG A spirin 81 81 MG 04/03/2020 12:00:00 AM EDT 1.0 {tablet} active Aspirin 81 81 MG eCW1 ([facility]) Hydrochlorothiazide 25 MG Oral Tablet Hydrochlorothiazide 25 MG 04/03/2020 12:00:00 AM EDT 1.0 {tablet_in_the_morning} acti ve Hydrochlorothiazide 25 MG eCW1 ([facility]) Hydrochlorothiazide 25 MG Oral Tablet Hydrochlorothiazide 25 MG 04/03/2020 12:00:00 AM EDT 1.0 {tablet_in_the_morning} acti ve Hydrochlorothiazide 25 MG eCW1 ([facility]) Clonidine Hydrochloride 0.1 MG Oral Tablet Clonidine H Cl 0.1 MG Clonidine HCl 0.1 MG 04/03/2020 12:00:00 AM EDT 1.0 {tablet} suspe nded Clonidine HCl 0.1 MG eCW1 ([facility]) Hydrochlorothiazide 25 MG Oral Tablet Hydrochlorothiazide 25 MG 04/03/2020 12:00:00 AM EDT 1.0 {tablet_in_the_morning} acti ve Hydrochlorothiazide 25 MG eCW1 ([facility]) Isosorbide Dinitrate 30 MG Oral Tablet Isosorbide Dinitrate 30 MG 04/03/2020 12:00:00 AM EDT 1.0 {tablet} active Is osorbide Dinitrate 30 MG eCW1 ([facility]) Clonidine Hydrochloride 0.1 MG Oral Tablet Clonidine H Cl 0.1 MG Clonidine HCl 0.1 MG 04/03/2020 12:00:00 AM EDT 1.0 {tablet} suspe nded Clonidine HCl 0.1 MG eCW1 ([facility]) Aspirin 81 MG Delayed Release Oral Tablet Aspirin 81 81 MG A spirin 81 81 MG 04/03/2020 12:00:00 AM EDT 1.0 {tablet} active Aspirin 81 81 MG eCW1 ([facility]) Hydrochlorothiazide 25 MG Oral Tablet Hydrochlorothiazide 25 MG 04/03/2020 12:00:00 AM EDT 1.0 {tablet_in_the_morning} acti ve Hydrochlorothiazide 25 MG eCW1 ([facility]) Aspirin 81 MG Delayed Release Oral Tablet Aspirin 81 81 MG A spirin 81 81 MG 04/03/2020 12:00:00 AM EDT 1.0 {tablet} active Aspirin 81 81 MG eCW1 ([facility]) Hydrochlorothiazide 25 MG Oral Tablet Hydrochlorothiazide 25 MG 04/03/2020 12:00:00 AM EDT 1.0 {tablet_in_the_morning} acti ve Hydrochlorothiazide 25 MG eCW1 ([facility]) Aspirin 81 MG Delayed Release Oral Tablet Aspirin 81 81 MG A spirin 81 81 MG 04/03/2020 12:00:00 AM EDT 1.0 {tablet} active Aspirin 81 81 MG eCW1 ([facility]) atorvastatin 80 MG Oral Tablet Atorvastatin Calcium 80 MG Atorvastatin Calcium 80 MG 04/03/2020 12:00:00 AM EDT 1.0 {tablet} activ e Atorvastatin Calcium 80 MG eCW1 ([facility]) Hydrochlorothiazide 25 MG Oral Tablet Hydrochlorothiazide 25 MG 04/03/2020 12:00:00 AM EDT 1.0 {tablet_in_the_morning} acti ve Hydrochlorothiazide 25 MG eCW1 ([facility]) Clonidine Hydrochloride 0.1 MG Oral Tablet Clonidine H Cl 0.1 MG Clonidine HCl 0.1 MG 04/03/2020 12:00:00 AM EDT 1.0 {tablet} suspe nded Clonidine HCl 0.1 MG eCW1 ([facility]) pregabalin 150 MG Oral Capsule pregabalin (LYRICA) 150 MG capsule pregabalin (LYRICA) 150 MG capsule 04/03/2020 12:00:00 AM EDT aborted TK 1 C PO BID. MDD 2 CS [facility] Clonidine Hydrochloride 0.1 MG Oral Tablet Clonidine H Cl 0.1 MG Clonidine HCl 0.1 MG 04/03/2020 12:00:00 AM EDT 1.0 {tablet} suspe nded Clonidine HCl 0.1 MG eCW1 ([facility]) Clonidine Hydrochloride 0.1 MG Oral Tablet Clonidine H Cl 0.1 MG Clonidine HCl 0.1 MG 04/03/2020 12:00:00 AM EDT 1.0 {tablet} suspe nded Clonidine HCl 0.1 MG eCW1 ([facility]) Hydrochlorothiazide 25 MG Oral Tablet hydroCHLOROthiaz brennan 25 MG hydroCHLOROthiazide 25 MG 04/03/2020 12:00:00 AM EDT 1.0 {tablet_in_the_morning} active hydroCHL OROthiazide 25 MG eCW1 ([facility]) meloxicam 15 MG Oral Tablet meloxicam (MOBIC) 15 MG ta blet meloxicam (MOBIC) 15 MG tablet 04/03/2020 12:00:00 AM EDT aborted as needed [facility] Clonidine Hydrochloride 0.1 MG Oral Tablet Clonidine H Cl 0.1 MG Clonidine HCl 0.1 MG 04/03/2020 12:00:00 AM EDT 1.0 {tablet} suspe nded Clonidine HCl 0.1 MG eCW1 ([facility]) Hydrochlorothiazide 25 MG Oral Tablet Hydrochlorothiazide 25 MG 04/03/2020 12:00:00 AM EDT 1.0 {tablet_in_the_morning} acti ve Hydrochlorothiazide 25 MG eCW1 ([facility]) Hydrochlorothiazide 25 MG Oral Tablet Hydrochlorothiazide 25 MG 04/03/2020 12:00:00 AM EDT 1.0 {tablet_in_the_morning} acti ve Hydrochlorothiazide 25 MG eCW1 ([facility]) Isosorbide Dinitrate 30 MG Oral Tablet Isosorbide Dinitrate 30 MG 04/03/2020 12:00:00 AM EDT 1.0 {tablet} active Is osorbide Dinitrate 30 MG eCW1 ([facility]) Aspirin 81 MG Delayed Release Oral Tablet Aspirin 81 81 MG A spirin 81 81 MG 04/03/2020 12:00:00 AM EDT 1.0 {tablet} active Aspirin 81 81 MG eCW1 ([facility]) Hydrochlorothiazide 25 MG Oral Tablet Hydrochlorothiazide 25 MG 04/03/2020 12:00:00 AM EDT 1.0 {tablet_in_the_morning} acti ve Hydrochlorothiazide 25 MG eCW1 ([facility]) Clonidine Hydrochloride 0.1 MG Oral Tablet Clonidine H Cl 0.1 MG Clonidine HCl 0.1 MG 04/03/2020 12:00:00 AM EDT 1.0 {tablet} activ e Clonidine HCl 0.1 MG eCW1 ([facility]) Aspirin 81 MG Delayed Release Oral Tablet Aspirin 81 81 MG A spirin 81 81 MG 04/03/2020 12:00:00 AM EDT 1.0 {tablet} active Aspirin 81 81 MG eCW1 ([facility]) atorvastatin 80 MG Oral Tablet Atorvastatin Calcium 80 MG Atorvastatin Calcium 80 MG 04/03/2020 12:00:00 AM EDT 1.0 {tablet} activ e Atorvastatin Calcium 80 MG eCW1 ([facility]) Hydrochlorothiazide 25 MG Oral Tablet Hydrochlorothiazide 25 MG 04/03/2020 12:00:00 AM EDT 1.0 {tablet_in_the_morning} acti ve Hydrochlorothiazide 25 MG eCW1 ([facility]) Isosorbide Dinitrate 30 MG Oral Tablet Isosorbide Dinitrate 30 MG 04/03/2020 12:00:00 AM EDT 1.0 {tablet} active Is osorbide Dinitrate 30 MG eCW1 ([facility]) Hydrochlorothiazide 25 MG Oral Tablet Hydrochlorothiazide 25 MG 04/03/2020 12:00:00 AM EDT 1.0 {tablet_in_the_morning} acti ve Hydrochlorothiazide 25 MG eCW1 ([facility]) Hydrochlorothiazide 25 MG Oral Tablet Hydrochlorothiazide 25 MG 04/03/2020 12:00:00 AM EDT 1.0 {tablet_in_the_morning} acti ve Hydrochlorothiazide 25 MG eCW1 ([facility]) Aspirin 81 MG Delayed Release Oral Tablet Aspirin 81 81 MG A spirin 81 81 MG 04/03/2020 12:00:00 AM EDT 1.0 {tablet} active Aspirin 81 81 MG eCW1 ([facility]) Clonidine Hydrochloride 0.1 MG Oral Tablet Clonidine H Cl 0.1 MG Clonidine HCl 0.1 MG 04/03/2020 12:00:00 AM EDT 1.0 {tablet} suspe nded Clonidine HCl 0.1 MG eCW1 ([facility]) Clonidine Hydrochloride 0.1 MG Oral Tablet Clonidine H Cl 0.1 MG Clonidine HCl 0.1 MG 04/03/2020 12:00:00 AM EDT 1.0 {tablet} suspe nded Clonidine HCl 0.1 MG eCW1 ([facility]) Isosorbide Dinitrate 30 MG Oral Tablet Isosorbide Dinitrate 30 MG 04/03/2020 12:00:00 AM EDT 1.0 {tablet} active Is osorbide Dinitrate 30 MG eCW1 ([facility]) Aspirin 81 MG Delayed Release Oral Tablet Aspirin 81 81 MG A spirin 81 81 MG 04/03/2020 12:00:00 AM EDT 1.0 {tablet} active Aspirin 81 81 MG eCW1 ([facility]) Hydrochlorothiazide 25 MG Oral Tablet Hydrochlorothiazide 25 MG 04/03/2020 12:00:00 AM EDT 1.0 {tablet_in_the_morning} acti ve Hydrochlorothiazide 25 MG eCW1 ([facility]) atorvastatin 80 MG Oral Tablet Atorvastatin Calcium 80 MG Atorvastatin Calcium 80 MG 04/03/2020 12:00:00 AM EDT 1.0 {tablet} activ e Atorvastatin Calcium 80 MG eCW1 ([facility]) Clonidine Hydrochloride 0.1 MG Oral Tablet Clonidine H Cl 0.1 MG Clonidine HCl 0.1 MG 04/03/2020 12:00:00 AM EDT 1.0 {tablet} suspe nded Clonidine HCl 0.1 MG eCW1 ([facility]) Clonidine Hydrochloride 0.1 MG Oral Tablet Clonidine H Cl 0.1 MG Clonidine HCl 0.1 MG 04/03/2020 12:00:00 AM EDT 1.0 {tablet} suspe nded Clonidine HCl 0.1 MG eCW1 ([facility]) Aspirin 81 MG Delayed Release Oral Tablet Aspirin 81 81 MG A spirin 81 81 MG 04/03/2020 12:00:00 AM EDT 1.0 {tablet} active Aspirin 81 81 MG eCW1 ([facility]) Clonidine Hydrochloride 0.1 MG Oral Tablet cloNIDine H Cl 0.1 MG cloNIDine HCl 0.1 MG 04/03/2020 12:00:00 AM EDT 1.0 {tablet} suspe nded cloNIDine HCl 0.1 MG eCW1 ([facility]) Clonidine Hydrochloride 0.1 MG Oral Tablet Clonidine H Cl 0.1 MG Clonidine HCl 0.1 MG 04/03/2020 12:00:00 AM EDT 1.0 {tablet} suspe nded Clonidine HCl 0.1 MG eCW1 ([facility]) Clonidine Hydrochloride 0.1 MG Oral Tablet Clonidine H Cl 0.1 MG Clonidine HCl 0.1 MG 04/03/2020 12:00:00 AM EDT 1.0 {tablet} suspe nded Clonidine HCl 0.1 MG eCW1 ([facility]) Isosorbide Dinitrate 30 MG Oral Tablet Isosorbide Dinitrate 30 MG 04/03/2020 12:00:00 AM EDT 1.0 {tablet} suspended Isosorbide Dinitrate 30 MG eCW1 ([facility]) Clonidine Hydrochloride 0.1 MG Oral Tablet Clonidine H Cl 0.1 MG Clonidine HCl 0.1 MG 04/03/2020 12:00:00 AM EDT 1.0 {tablet} suspe nded Clonidine HCl 0.1 MG eCW1 ([facility]) Hydrochlorothiazide 25 MG Oral Tablet Hydrochlorothiazide 25 MG 04/03/2020 12:00:00 AM EDT 1.0 {tablet_in_the_morning} acti ve Hydrochlorothiazide 25 MG eCW1 ([facility]) Clonidine Hydrochloride 0.1 MG Oral Tablet Clonidine H Cl 0.1 MG Clonidine HCl 0.1 MG 04/03/2020 12:00:00 AM EDT 1.0 {tablet} suspe nded Clonidine HCl 0.1 MG eCW1 ([facility]) Clonidine Hydrochloride 0.1 MG Oral Tablet Clonidine H Cl 0.1 MG Clonidine HCl 0.1 MG 04/03/2020 12:00:00 AM EDT 1.0 {tablet} suspe nded Clonidine HCl 0.1 MG eCW1 ([facility]) Clonidine Hydrochloride 0.1 MG Oral Tablet cloNIDine H Cl 0.1 MG cloNIDine HCl 0.1 MG 04/03/2020 12:00:00 AM EDT 1.0 {tablet} suspe nded cloNIDine HCl 0.1 MG eCW1 ([facility]) Clonidine Hydrochloride 0.1 MG Oral Tablet cloNIDine H Cl 0.1 MG cloNIDine HCl 0.1 MG 04/03/2020 12:00:00 AM EDT 1.0 {tablet} suspe nded cloNIDine HCl 0.1 MG eCW1 ([facility]) Hydrochlorothiazide 25 MG Oral Tablet Hydrochlorothiazide 25 MG 04/03/2020 12:00:00 AM EDT 1.0 {tablet_in_the_morning} acti ve Hydrochlorothiazide 25 MG eCW1 ([facility]) Clonidine Hydrochloride 0.1 MG Oral Tablet Clonidine H Cl 0.1 MG Clonidine HCl 0.1 MG 04/03/2020 12:00:00 AM EDT 1.0 {tablet} suspe nded Clonidine HCl 0.1 MG eCW1 ([facility]) Hydrochlorothiazide 25 MG Oral Tablet Hydrochlorothiazide 25 MG 04/03/2020 12:00:00 AM EDT 1.0 {tablet_in_the_morning} acti ve Hydrochlorothiazide 25 MG eCW1 ([facility]) Aspirin 81 MG Delayed Release Oral Tablet Aspirin 81 81 MG A spirin 81 81 MG 04/03/2020 12:00:00 AM EDT 1.0 {tablet} active Aspirin 81 81 MG eCW1 ([facility]) Clonidine Hydrochloride 0.1 MG Oral Tablet Clonidine H Cl 0.1 MG Clonidine HCl 0.1 MG 04/03/2020 12:00:00 AM EDT 1.0 {tablet} activ e Clonidine HCl 0.1 MG eCW1 ([facility]) atorvastatin 80 MG Oral Tablet Atorvastatin Calcium 80 MG Atorvastatin Calcium 80 MG 04/03/2020 12:00:00 AM EDT 1.0 {tablet} activ e Atorvastatin Calcium 80 MG eCW1 ([facility]) Clonidine Hydrochloride 0.1 MG Oral Tablet Clonidine H Cl 0.1 MG Clonidine HCl 0.1 MG 04/03/2020 12:00:00 AM EDT 1.0 {tablet} suspe nded Clonidine HCl 0.1 MG eCW1 ([facility]) Hydrochlorothiazide 25 MG Oral Tablet Hydrochlorothiazide 25 MG 04/03/2020 12:00:00 AM EDT 1.0 {tablet_in_the_morning} acti ve Hydrochlorothiazide 25 MG eCW1 ([facility]) Aspirin 81 MG Delayed Release Oral Tablet Aspirin 81 81 MG A spirin 81 81 MG 04/03/2020 12:00:00 AM EDT 1.0 {tablet} active Aspirin 81 81 MG eCW1 ([facility]) Clonidine Hydrochloride 0.1 MG Oral Tablet Clonidine H Cl 0.1 MG Clonidine HCl 0.1 MG 04/03/2020 12:00:00 AM EDT 1.0 {tablet} suspe nded Clonidine HCl 0.1 MG eCW1 ([facility]) Albuterol Sulfate HFA 108 (90 Base) MCG/ACT Albuterol Sulfate HFA 108 (90 Base) MCG/ACT 03/27/2020 12:00:00 AM EDT 1.0 {puff_as_needed} suspended Albuterol Sulfate HFA 108 (90 Base) MCG/ACT eCW1 ([facility]) Albuterol Sulfate HFA 108 (90 Base) MCG/ACT Albuterol Sulfate HFA 108 (90 Base) MCG/ACT 03/27/2020 12:00:00 AM EDT 1.0 {puff_as_needed} suspended Albuterol Sulfate HFA 108 (90 Base) MCG/ACT eCW1 ([facility]) Albuterol Sulfate HFA 108 (90 Base) MCG/ACT Albuterol Sulfate HFA 108 (90 Base) MCG/ACT 03/27/2020 12:00:00 AM EDT 1.0 {puff_as_needed} suspended Albuterol Sulfate HFA 108 (90 Base) MCG/ACT eCW1 ([facility]) Albuterol Sulfate HFA 108 (90 Base) MCG/ACT Albuterol Sulfate HFA 108 (90 Base) MCG/ACT 03/27/2020 12:00:00 AM EDT 1.0 {puff_as_needed} active Albuterol Sulfate HFA 108 (90 Base) MCG/ACT eCW1 ([facility]) Albuterol Sulfate HFA 108 (90 Base) MCG/ACT Albuterol Sulfate HFA 108 (90 Base) MCG/ACT 03/27/2020 12:00:00 AM EDT 1.0 {puff_as_needed} suspended Albuterol Sulfate HFA 108 (90 Base) MCG/ACT eCW1 ([facility]) Albuterol Sulfate HFA 108 (90 Base) MCG/ACT Albuterol Sulfate HFA 108 (90 Base) MCG/ACT 03/27/2020 12:00:00 AM EDT 1.0 {puff_as_needed} suspended Albuterol Sulfate HFA 108 (90 Base) MCG/ACT eCW1 ([facility]) Albuterol Sulfate HFA 108 (90 Base) MCG/ACT Albuterol Sulfate HFA 108 (90 Base) MCG/ACT 03/27/2020 12:00:00 AM EDT 1.0 {puff_as_needed} active Albuterol Sulfate HFA 108 (90 Base) MCG/ACT eCW1 ([facility]) Albuterol Sulfate HFA 108 (90 Base) MCG/ACT Albuterol Sulfate HFA 108 (90 Base) MCG/ACT 03/27/2020 12:00:00 AM EDT 1.0 {puff_as_needed} active Albuterol Sulfate HFA 108 (90 Base) MCG/ACT eCW1 ([facility]) Albuterol Sulfate HFA 108 (90 Base) MCG/ACT Albuterol Sulfate HFA 108 (90 Base) MCG/ACT 03/27/2020 12:00:00 AM EDT 1.0 {puff_as_needed} active Albuterol Sulfate HFA 108 (90 Base) MCG/ACT eCW1 ([facility]) Albuterol Sulfate HFA 108 (90 Base) MCG/ACT Albuterol Sulfate HFA 108 (90 Base) MCG/ACT 03/27/2020 12:00:00 AM EDT 1.0 {puff_as_needed} active Albuterol Sulfate HFA 108 (90 Base) MCG/ACT eCW1 ([facility]) Albuterol Sulfate HFA 108 (90 Base) MCG/ACT Albuterol Sulfate HFA 108 (90 Base) MCG/ACT 03/27/2020 12:00:00 AM EDT 1.0 {puff_as_needed} suspended Albuterol Sulfate HFA 108 (90 Base) MCG/ACT eCW1 ([facility]) Albuterol Sulfate HFA 108 (90 Base) MCG/ACT Albuterol Sulfate HFA 108 (90 Base) MCG/ACT 03/27/2020 12:00:00 AM EDT 1.0 {puff_as_needed} suspended Albuterol Sulfate HFA 108 (90 Base) MCG/ACT eCW1 ([facility]) Albuterol Sulfate HFA 108 (90 Base) MCG/ACT Albuterol Sulfate HFA 108 (90 Base) MCG/ACT 03/27/2020 12:00:00 AM EDT 1.0 {puff_as_needed} suspended Albuterol Sulfate HFA 108 (90 Base) MCG/ACT eCW1 ([facility]) Albuterol Sulfate HFA 108 (90 Base) MCG/ACT Albuterol Sulfate HFA 108 (90 Base) MCG/ACT 03/27/2020 12:00:00 AM EDT 1.0 {puff_as_needed} active Albuterol Sulfate HFA 108 (90 Base) MCG/ACT eCW1 ([facility]) Albuterol Sulfate HFA 108 (90 Base) MCG/ACT Albuterol Sulfate HFA 108 (90 Base) MCG/ACT 03/27/2020 12:00:00 AM EDT 1.0 {puff_as_needed} suspended Albuterol Sulfate HFA 108 (90 Base) MCG/ACT eCW1 ([facility]) Albuterol Sulfate HFA 108 (90 Base) MCG/ACT Albuterol Sulfate HFA 108 (90 Base) MCG/ACT 03/27/2020 12:00:00 AM EDT 1.0 {puff_as_needed} suspended Albuterol Sulfate HFA 108 (90 Base) MCG/ACT eCW1 ([facility]) Albuterol Sulfate HFA 108 (90 Base) MCG/ACT Albuterol Sulfate HFA 108 (90 Base) MCG/ACT 03/27/2020 12:00:00 AM EDT 1.0 {puff_as_needed} active Albuterol Sulfate HFA 108 (90 Base) MCG/ACT eCW1 ([facility]) Albuterol Sulfate HFA 108 (90 Base) MCG/ACT Albuterol Sulfate HFA 108 (90 Base) MCG/ACT 03/27/2020 12:00:00 AM EDT 1.0 {puff_as_needed} suspended Albuterol Sulfate HFA 108 (90 Base) MCG/ACT eCW1 ([facility]) Albuterol Sulfate HFA 108 (90 Base) MCG/ACT Albuterol Sulfate HFA 108 (90 Base) MCG/ACT 03/27/2020 12:00:00 AM EDT 1.0 {puff_as_needed} active Albuterol Sulfate HFA 108 (90 Base) MCG/ACT eCW1 ([facility]) Albuterol Sulfate HFA 108 (90 Base) MCG/ACT Albuterol Sulfate HFA 108 (90 Base) MCG/ACT 03/27/2020 12:00:00 AM EDT 1.0 {puff_as_needed} active Albuterol Sulfate HFA 108 (90 Base) MCG/ACT eCW1 ([facility]) albuterol (PROVENTIL HFA;VENTOLIN HFA) 108 (90 Base) M CG/ACT inhaler [id number] 03/27/2020 12:00:00 AM EDT abort ed INHALE ONE PUFF BY MOUTH EVERY 4 HOURS NEEDED [facility] Albuterol Sulfate HFA 108 (90 Base) MCG/ACT Albuterol Sulfate HFA 108 (90 Base) MCG/ACT 03/27/2020 12:00:00 AM EDT 1.0 {puff_as_needed} active Albuterol Sulfate HFA 108 (90 Base) MCG/ACT eCW1 ([facility]) Albuterol Sulfate HFA 108 (90 Base) MCG/ACT Albuterol Sulfate HFA 108 (90 Base) MCG/ACT 03/27/2020 12:00:00 AM EDT 1.0 {puff_as_needed} suspended Albuterol Sulfate HFA 108 (90 Base) MCG/ACT eCW1 ([facility]) Albuterol Sulfate HFA 108 (90 Base) MCG/ACT Albuterol Sulfate HFA 108 (90 Base) MCG/ACT 03/27/2020 12:00:00 AM EDT 1.0 {puff_as_needed} suspended Albuterol Sulfate HFA 108 (90 Base) MCG/ACT eCW1 ([facility]) Albuterol Sulfate HFA 108 (90 Base) MCG/ACT Albuterol Sulfate HFA 108 (90 Base) MCG/ACT 03/27/2020 12:00:00 AM EDT 1.0 {puff_as_needed} suspended Albuterol Sulfate HFA 108 (90 Base) MCG/ACT eCW1 ([facility]) Albuterol Sulfate HFA 108 (90 Base) MCG/ACT Albuterol Sulfate HFA 108 (90 Base) MCG/ACT 03/27/2020 12:00:00 AM EDT 1.0 {puff_as_needed} active Albuterol Sulfate HFA 108 (90 Base) MCG/ACT eCW1 ([facility]) Albuterol Sulfate HFA 108 (90 Base) MCG/ACT Albuterol Sulfate HFA 108 (90 Base) MCG/ACT 03/27/2020 12:00:00 AM EDT 1.0 {puff_as_needed} suspended Albuterol Sulfate HFA 108 (90 Base) MCG/ACT eCW1 ([facility]) Albuterol Sulfate HFA 108 (90 Base) MCG/ACT Albuterol Sulfate HFA 108 (90 Base) MCG/ACT 03/27/2020 12:00:00 AM EDT 1.0 {puff_as_needed} suspended Albuterol Sulfate HFA 108 (90 Base) MCG/ACT eCW1 ([facility]) 90 mcg/actuation 03/27/2020 12:00:00 AM EDT [...] Sulfate HFA 108 (90 Base) MCG/ACT eCW1 ([facility]) Albuterol Sulfate HFA 108 (90 Base) MCG/ACT Albuterol Sulfate HFA 108 (90 Base) MCG/ACT 03/27/2020 12:00:00 AM EDT 1.0 {puff_as_needed} active Albuterol Sulfate HFA 108 (90 Base) MCG/ACT eCW1 ([facility]) Albuterol Sulfate HFA 108 (90 Base) MCG/ACT Albuterol Sulfate HFA 108 (90 Base) MCG/ACT 03/27/2020 12:00:00 AM EDT 1.0 {puff_as_needed} suspended Albuterol Sulfate HFA 108 (90 Base) MCG/ACT eCW1 ([facility]) Albuterol Sulfate HFA 108 (90 Base) MCG/ACT Albuterol Sulfate HFA 108 (90 Base) MCG/ACT 03/27/2020 12:00:00 AM EDT 1.0 {puff_as_needed} active Albuterol Sulfate HFA 108 (90 Base) MCG/ACT eCW1 ([facility]) Albuterol Sulfate HFA 108 (90 Base) MCG/ACT Albuterol Sulfate HFA 108 (90 Base) MCG/ACT 03/27/2020 12:00:00 AM EDT 1.0 {puff_as_needed} suspended Albuterol Sulfate HFA 108 (90 Base) MCG/ACT eCW1 ([facility]) Albuterol Sulfate HFA 108 (90 Base) MCG/ACT Albuterol Sulfate HFA 108 (90 Base) MCG/ACT 03/27/2020 12:00:00 AM EDT 1.0 {puff_as_needed} active Albuterol Sulfate HFA 108 (90 Base) MCG/ACT eCW1 ([facility]) pregabalin 150 MG Oral Capsule Pregabalin 03/25/2020 12:00:00 AM EDT ORAL active [facility] ([facility]) Omeprazole 20 MG Delayed Release Oral Ca psule omeprazole (PRILOSEC) 20 MG capsule omeprazole (PRILOSEC) 20 MG capsule 02/07/2020 12:00:00 AM EDT aborted TAKE ONE CAPSULE BY MOUTH EVERY MORNING 30 MINUTES BEFORE MORNING MEAL [facility] pregabalin 150 MG Oral Capsule [Lyrica] Lyrica 01/07/2020 12:00:0 0 AM EDT ORAL completed [facility] ([facility]) Lisinopril 20 MG Oral Tablet lisinopril (PRINIVIL,ZEST RIL) 20 MG tablet lisinopril (PRINIVIL,ZESTRIL) 20 MG tablet 20 mg Oral aborted Take 20 mg by mouth daily [facility] Diltiazem Hydrochloride 30 MG Oral Tablet diltiazem (C ARDIZEM) 30 MG tablet diltiazem (CARDIZEM) 30 MG tablet 30 mg Oral abor jason Take 30 mg by mouth 2 (two) times a day [facility] Insurance Providers Payer name Policy type / Coverage type Policy ID Covered green party ID Covered green party's relationship to dawson Policy Dawson Plan Information D [facility] Care [facility] P [id number] S [id number] [facility] PLAN [facility] [id number] SP [id number] Progressive ([place]) Workers Compensation [id number] Self [id number] NO FAULT [id number] Paulina 6 Progressive (NF) Workers Compensation [id number] Self [id number] PROGRESSIVE CO NO FAULT [id number] SP [id number] PROGRESSIVE E [id number] Self [id number] [facility] Care [facility] Community Plan P [id number] S [id number] [facility] Care [facility] P [id number] S [id number] [employer] (NF) Workers Compensation [id number] Self [id number] [employer] ([place]) Workers Compensation [id number] Self [id number] [employer] ([place]) Workers Compensation [id number] Self [id number] [employer] ([place]) Workers Compensation [id number] Self [id number] [employer] ([place]) Workers Compensation [id number] Self [id number] [facility] MEDICAID [id number] xxxxxxxxx [id number] [facility] MEDICAID [id number] Paulina [id number] [facility] MEDICAID [id number] xxxxxxxxx [id number] [facility] MEDICAID [id number] Paulina [id number] PROGRESSIVE CO NO FAULT [id number] SP [id number] SELF PAY ONLY [id number] SP [id number] SELF PAY ONLY SP1 SP SP1 O UNAVAILABLE UNAVAILA BLE SELF PAY ONLY [id number] SP [id number] [employer] O [id number] S [id number] [employer] NF [id number] SP [id number] ANSI-Medicaid [id number] ANSI-Medicaid [id number] ANSI-Medicaid [id number] ANSI-Medicaid [id number] ANSI-Medicaid [id number] ANSI-Medicaid [id number] ANSI-Medicaid [id number] ANSI-Not a Secondary Insurance [id number] ANSI-Medicaid [id number] ANSI-Not a Secondary Insurance [id number] ANSI-Medicaid [id number] ANSI-Not a Secondary Insurance [id number] [facility] [id number] ANSI-Medicaid [id number] ANSI-Not a Secondary Insurance [id number] ANSI-Medicaid [id number] ANSI-Not a Secondary Insurance [id number] ANSI-Not a Secondary Insurance [id number] ANSI-Medicaid [id number] ANSI-Medicaid [id number] ANSI-Not a Secondary Insurance [id number] PROGRESSIVE CO NO FAULT [id number] SP [id number] PROGRESSIVE CO NO FAULT [id number] SP [id number] ANSI-Not a Secondary Insurance [id number] ANSI-Medicaid [id number] OTHER WORKERS COMPENSATION [id number] SP [id number] MEDICAID M [id number] S [id number] MEDICAID [id number] SP [id number] PROGRESSIVE CO NO FAULT [id number] SP [id number] [facility] O [id number] S [id number] Managed Care - Community Plan [facility] P [id number] S [id number] ANSI-Medicaid [id number] ANSI-Not a Secondary Insurance [id number] ANSI-Medicaid [id number] ANSI-Not a Secondary Insurance [id number] Medicaid Dental S UNAVAILABLE S UN AVAILABLE PROGRESSIVE CO NO FAULT O [id number] S [id number] PROGRESSIVE CO NO FAULT [id number] SP [id number] PROGRESSIVE CO NO FAULT O [id number] S [id number] NF Progressive Insurance Claim No. [id number] Claim No. [id number] PROGRESSIVE CO NO FAULT [id number] SP [id number] NO FAULT [id number] Paulina [id number] NO FAULT PI PI NO FAULT [id number] Paulina [id number] [facility](MCA[facility]) O [id number] S [id number] SELF PAY UNAVAILABLE SP UNAVAILA BLE [facility] [id number] SP [id number] [facility] [id number] SP [id number] [facility] [id number] SP [id number] PROGRESSIVE CO NO FAULT [id number] SP [id number] PROGRESSIVE CO NO FAULT [id number] SP [id number] PROGRESSIVE CO NO FAULT [id number] SP [id number] [facility] [id number] S [id number] PROGRESSIVE CO NO FAULT O [id number] S [id number] Medicaid S [id number] S [id number] SELF PAY ONLY - SP1 SP PROGRESSIVE O [id number] S 135 [employer] [facility] CLAIMS [id number] SP [id number] MEDICAID [id number] SP [id number] UMR/POM[employer] RISK MANAGEMENT SP ESIS [facility] CLAIMS [id number] SP [id number] PROGRESSIVE CO NO FAULT [id number] SP [id number] PROGRESSIVE CO NO FAULT [id number] SP [id number] SELF PAY ONLY [id number] Problems, Conditions, and Diagnoses Code Display Name Description Problem Type Effective Dates Data Source(s) I10 Essential (primary) hypertension Essential (primary) h ypertension Diagnosis 02/23/2021 07:04:11 AM EDT [facility] Z91.89 Other specified personal risk factors, n ot elsewhere classified Other specified personal risk factors, n Diagnosis 02/23/2021 07:04:11 AM ED T [facility] R07.89 Other chest pain Other chest pain Diagnosis 11/04/2020 03 :10:04 PM EDT [facility] E78.2 Mixed hyperlipidemia Mixed hyperlipidemia Diagnosis 11/04/2020 03:10:04 PM EDT [facility] R55 Syncope and collapse Syncope and collapse Diagnosis 11/04/2020 03:10:04 PM EDT [facility] N28.9 Disorder of kidney and ureter, unspecifi ed Disorder of kidney and ureter, unspecifi Diagnosis 07/01/2020 10:28:25 AM EST [facility] Z01.818 Pre-procedure evaluation check Preop testing Problem 04/13/2021 12:00:00 AM EDT eCW1 ([facility]) N39.0 Urinary tract infectious disease UTI (urinary tract in fection) Problem 04/13/2021 12:00:00 AM EDT eCW1 ([facility]) N20.0 Kidney stone Kidney stone Problem 04/13/2021 12:00:00 A M EDT eCW1 ([facility]) G47.33 ARVIN (obstructive sleep apnea) ARVIN (obstructive sleep a pnea) [id number] 02/23/2021 12:00:00 AM EDT [facility] R07.89 Atypical chest pain Atypical chest pain [id number] 0 11/04/2020 12:00:00 AM EDT [facility] R55 Syncope Syncope [id number] 11/04/2020 12:00:00 AM ED T [facility] I49.3 [id number] PVC (premature ventricular contraction) P roblem 10/01/2020 12:00:00 AM EDT eCW1 ([facility]) R31.29 Microscopic hematuria Microscopic hematuria Problem 08/11/2020 12:00:00 AM EST eCW1 ([facility]) [id number] Essential hypertension Essential hypertension Problem 07/15/2020 12:00:00 AM EST MEDENT ([facility] ) E78.2 Mixed hyperlipidemia Mixed hyperlipidemia [id number] 05/07/2020 12:00:00 AM EST [facility] N28.9 Renal insufficiency Renal insufficiency [id number] 1 07/07/2019 12:00:00 AM EST [facility] I10 Essential hypertension Essential hypertension [id number] 05/07/2020 12:00:00 AM EST [facility] 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 Probl em 04/10/2020 12:00:00 AM EDT eCW1 ([facility]) N20.0 [id number] Kidney stone on left side Problem 04/10/2020 12:00:00 AM EDT eCW1 ([facility]) I10 [id number] Accelerated essential hypertension Proble m 04/08/2020 12:00:00 AM EDT eCW1 ([facility]) H04.123 509643753 Dry eyes Problem 04/05/2020 12:00:00 AM ED T eCW1 ([facility]) E78.5 [id number] Dyslipidemia Problem 04/03/2020 12:00:00 AM EDT eCW1 ([facility]) I20.8 [id number] Stable angina Problem 04/03/2020 12:00:00 AM EDT eCW1 ([facility]) I15.9 [id number] Secondary hypertension Problem 04/03/2020 12 :00:00 AM EDT eCW1 ([facility]) Surgeries/Procedures Procedure Description Date Indications Data Source(s) ECG ROUTINE ECG W/LEAST 12 LDS W/I&R <td>POCT AMB EKG</td><td>Routine</td><td>04/15/2021 5:15 PM EDT</td><td> Atypical chest pain</td><td> </td> 04/15/2021 05:15:00 PM EDT Atypical chest pain [facility] Atypical chest pain OFFICE OUTPATIENT VISIT 15 MINUTES 03/24/2021 12:00:00 AM EDT MEDENT ([facility] ) POCT AMB EKG <td>POCT AMB EKG</td><td>Rou blake</td><td>02/23/2021 8:49 AM EDT</td><td> Atypical chest pain</td><td> </td> 02/23/2021 08:49:00 AM EDT Atypical chest pain [facility] Atypical chest pain OFFICE OUTPATIENT NEW 30 MINUTES 02/20/2021 12:00:00 A M EDT MEDKEVIN ([facility] ) Medication: Lidocaine HCl 2% Jelly 5mL Intravesically 09/17/2020 12:00:00 AM EDT eC ([facility]) BLOOD COUNT COMPLETE AUTO&AUTO DIFRNTL WBC COUNT <td>C BC AND DIFFERENTIAL</td><td>Routine</td><td>09/01/2020</td><td></td><td> </td> 09/01/2020 12:00:00 AM EDT [facility] HEPATIC FUNCTION PANEL <td>HEPATIC FUNCTION PANEL</td><td>Routine</td><td>09/01/2020</td><td></td><td> </td> 09/01/2020 12:00:00 AM EDT [facility] BASIC METABOLIC PANEL CALCIUM TOTAL <td>BASIC METABOLI C PANEL</td><td>Routine</td><td>08/11/2020</td><td></td><td> </td> 08/11/2020 12:00:00 AM EST [facility] BASIC METABOLIC PANEL CALCIUM TOTAL <td>BASIC METABOLI C PANEL</td><td>Routine</td><td>05/23/2020 2:33 PM EST</td><td> Essential hypertension</td><td> </td> 05/23/2020 07:33:00 PM EST Essential hypertension [facility] Essential hypertension ECG ROUTINE ECG W/LEAST 12 LDS W/I&R <td>POCT AMB EKG</td><td>Routine</td><td>05/07/2020 3:30 PM EST</td><td> Essential hypertension</td><td> </td> 05/07/2020 08:30:00 PM EST Essential hypertension [facility] Essential hypertension Results ID Date Data Source [id number] 01/10/2021 05:05:26 PM EDT [facility] Name Value Range Interpretation Code Description Data Anneliese rce(s) Supporting Document(s) &PDF [facility] NJQHRh8dTiPYPzOk30/JMQnsNJDbt4UgLKwqYMh5LBcuFWUoM2IziXrzBJLJOr7VCPQmNCRUECEbETvw waW [file] AgICAgICAgICAgICAgICAgICAgICAgICAgICAgICAgICAgICAgICAgICAgICAgICAgICAgICAgICAgIC AzVVOpVPMlZIBaEZEmCAKmVG3UTGEsNKJiNNToNMNhOSWrHBUyGLNyUEIkFLSaMNAmKLXnLYRsTKElBV AgICAgICAgICAgICAgICAgICAgICAgICAgICAgICAg YNQmNZKyAWNzCHYdULWkXKCiJRCcDOWcLJUuMV9NGRDrRWGoVKGhPSWnOCHjFFDvFMLdSJViMWMyBGAw ICAgICAgICAgICAgICAgICAgICAgICAgICAgICAgICAgICAgICAgICAgICAgICAgICAgICAgICAgICAg LMIgHYHeQPNwOY4JLGKvRPPnWDBwATSqKOCoOQKiWB AgICAgICAgICAgICAgICAgICAgICAgICAgICAgICAgICAgICAgICAgICAgICAgICAgICAgICAgICAgIC PrJPKxPEQcJDIrZLCdIFSbMBYxJD5BFNVvGKSrHCCoOEZkBZGcNINvPJVmEDJoAIQeGYPrYTVtFGAmWK AgICAgICAgICAgICAgICAgICAgICAgICAgICAgICAg BPLtHNShMNErNPMeXCNlRBKrIYDyLJJwOCYzFNLvUO2YHOEqXKZiSGRyJDAeIGIhIKHoMKLyHFQjTEQc ICAgICAgICAgICAgICAgICAgICAgICAgICAgICAgICAgICAgICAgICAgICAgICAgICAgICAgICAgICAg WOJtYBIlLEHiMPHuXG8GODBqDZOwZQKxZDWcIBGoIH AgICAgICAgICAgICAgICAgICAgICAgICAgICAgICAgICAgICAgICAgICAgICAgICAgICAgICAgICAgIC JyYWXgARWgMHMnJQGpKOCvSIAcBGGqIR4YWDUcKWIaKSBxROVbPYVdZAKxFHJgLKVeNFCqFEQeMMQmKI AgICAgICAgICAgICAgICAgICAgICAgICAgICAgICAg TQKfFCJxAFZkGWErMMOzKRHqJSVoFOMsGVHaQJIhSGRsPF6DONBmHJEeRFBpXPNtTAAgEPLhNXDxCSNj ICAgICAgICAgICAgICAgICAgICAgICAgICAgICAgICAgICAgICAgICAgICAgICAgICAgICAgICAgICAg OBSqRBQmDNIjHMQcAHZhAP4KZXHiSSKfMMKiNWSpWQ AgICAgICAgICAgICAgICAgICAgICAgICAgICAgICAgICAgICAgICAgICAgICAgICAgICAgICAgICAgIC GfQTOaUBYiWRXuBBCbMOKfVFUfMRZpOAYbND9RNF02dSAeo8X6HTAvUC8qpzj/Zs3FRAoraeKrnEJwPB 7BWmIsDQ9jve2LPiYdRH1eoz0SIMmNPjLxT0P9vDQc BTAsJXJHTqEwF19oMTogFq79ZLhqHWVqPrAxPRt0Bx6AEwArK7dxQTPbEhQ5SFEjVeG8YSIoStM2OSPa FhMtWRBtWASgQFQkLVMNCJ2TRlCaY8PcnG71OWYRZg7+LHrynqSqKpgNKbZ8EIXft1XxEPc9ZX4OUQSp TGcmZM5VMCFtwW5dVRouHL4GPuW5QaBmQWSNObDmT3 9thAFzJNl1Z1RbNnPyIVUbDufaYMSpEVvaAzXeMMXqChLfLQqcIS3+ID4+EVoiQI8OZEmvbkKtEKMxKx 2WJHIoLQE3TGCypIFqIBryQHLGBSlsNE3RgLVkRRT5fF2zDOlzTUSvBPRhL0aNUtMbkKdvZK72dLxjwh VsbCBdDQo+Zk1RLB6ur1LmNWu1yqFpVImgZPWvTBmi FWKpRPGeRBFzAHR4PCI0HHDCSwNbRVSpYRVwVMdpZKFcXPEniv1GUHLpAQMuOhG0ASLdNUVfUXFzQMqk MYMrJZK8HHL1PMZfDUYuXW9XJhJlOTFtRRVmBSxvMIRaWGAxbf4BXDYnXTWnLvW3TyNnBEXqXKWfMMkd NFIrMFWsVJRzWXAxPVGgLH3BRoCaNVItMUw4FJyiWE TwFBEenc4ZLJBmOUUzEYgwLPUfGIBxQFGaZBnsLFYaSMFlTxloIKDtOITjLT3KWyHnJGTiPSF8CKWiKO IdJLUexg5UKZTzFXYuTgs6JQIyHZZqSDDjXEvpHWKvUIO9ZSW0PEOoRUQwJH0PDjInTXIjODx4CsXyYE LtBLPhns5PDFAwDQIrXmqxSDWmAKWjRUHdICxbKRCm LOF1Tom6JVUyWFEjXZ7GDcOyXMXrGKv1TLXaJLOpIFPnhh5IPYTzMGBvWMH2IIVhNGQgNDEkLPocZUNf PZIrMZH0JXLvOUXgMW2TKvGgMNEkMqDhWlQhYJGfTDDhqg0GXRGaZUVcWYVyGJLuWLGpQGKpYWoeUWCl WEA3Hob7WNUjBVEeMS4YYhMaSXBwTbA1GXNkDNRdVV Cplp2GVCPzGQLrDZaqXsLoXAYiISGcTTvgUJWcBWM9UCGoWBJeVFSdEI4ULdCsGHBfPhMiDZKtUEAfUL Pwrr7PKULpRJShUcRyVtEnRNUjAFWtBVmlYIQbXQW7ToP2SONpLFTqYG9QSmVlMZZhCdf5DYIbCRKiEG Fptb3WVEUnVMBdWALjMlLlDATuJDWfKBuyNNXiEFX8 EoS1VPVrWZLnDB7SXkJwGFAcFhy4CIZtVIUaNYYsle7HAEKeSSYsIBKtAxWsEXPnMOOpYSghBIWiCXI5 GWM0TWXxPLPmPY1IBoJqQRLgJhl5WZioLEAgBRWbsp6FBMNiRHKsLCJ1KANxNXHaGPPuHFmyNLKxRHZm Njw9PIRxRKZzUH1ZOcQpAMZeCuH7AqWtNEQgWGJjxx 8YNSXlOCJyZAs6NRKmZEVxNKTtYYfjQLZgNPAyWCPnNBKbVBJtXY6BCfJyAMAgAqYkQnqjYXEvWHUbyh 9XYNAzKTGnHDAdPIHqNNSxWWWdLNhvXQQtFXFfLlWsYWLlJNKwRJ5KVcWwTICaYwV7SBobGBRrLTCzzd 6KHKLiBIWhAlB2WAMgQZOvBXHjQSxdOMFzJPFoZJZ6 IGFnDHXmMD0BLbRcRRTqKpH0IREcMZQwSZVewv5AAXXfIZNlWiG7HiYuEGFsTNCwRAqdENAvPGIfAct7 FVSzKRSlAR6NGaHpBRPiYqZuVCNgRWGmNYJozz9KuOXqkKufed4NQJvGKl6ViHixCNLjJHiaZj2obBT9 YKGtBZFELf3NflMiUZVzLFABHTkiIBVlLQDqPNOxWG PdEYN3RdX6EfG4QHVwJiGgNHMqVHXrOeguCcC9LGZgKqF8JdA8WhJ4VlCeMIvwJQPoETW8KRGlW1HdRY I+AO9hEFj+Tf0Xh5JakqP5llSiPLueVOGhMA3JVCXTG7YAGg== ID Date Data Source TOTAL PROTEIN,RANDOM URINE 12/03/2020 12:00:00 AM EDT eCW1 ( [facility]) Name Value Range Interpretation Code Description Data Anneliese rce(s) Supporting Document(s) 125.7 0.0-12.0 TOTAL PROTEIN,RANDOM URIN E eCW1 ([facility]) ID Date Data Source CREATININE,RANDOM URINE 12/03/2020 12:00:00 AM EDT eCW1 (On license of [facility]) Name Value Range Interpretation Code Description Data Anneliese rce(s) Supporting Document(s) 119.0 CREATININE,RANDOM URINE eCW1 ( [facility]) ID Date Data Source Basic Metabolic Profile (BMP) 12/03/2020 12:00:00 AM EDT eCW 1 ([facility]) Name Value Range Interpretation Code Description Data Anneliese rce(s) Supporting Document(s) 12 7-18 BLOOD UREA NITROGEN eCW1 ([facility]) 93 70-100 GLUCOSE, FASTING eCW1 ([facility]) > 60.0 >60 GLOMERULAR FILTRATION RATE eCW 1 ([facility]) 139 136-145 SODIUM LEVEL eCW1 ([facility]) 1.37 0.70-1.30 CREATININE FOR GFR eCW1 ([facility]) 9.1 8.5-10.1 CALCIUM LEVEL eCW1 ([facility]) 31 21-32 CARBON DIOXIDE LEVEL eCW1 (On license of [facility]) 103 98-107 CHLORIDE LEVEL eCW1 ([facility]) 3.7 3.5-5.1 POTASSIUM SERUM eCW1 ([facility]) ID Date Data Source [id number] 11/10/2020 09:45:32 PM EDT [facility] Name Value Range Interpretation Code Description Data Anneliese rce(s) Supporting Document(s) &PDF [facility] XNDCLe7cPvSEUgFj91/GAOttCMXqi2RjSCyjNWy5HDjmZZTxJ7AmrYozVBTSXv5OYPSiVOMVATGlMYEi waW [file] ICAgICAgICAgICAgICAgICAgICAgICAgICAgICAgICAgICAgICAgICAgICAgICANCiAgICAgICAgICAg ICAgICAgICAgICAgICAgICAgICAgICAgICAgICAgIC AgICAgICAgICAgICAgICAgICAgICAgICAgICAgICAgICAgICAgICAgICAgICAgICAgICAgICAgICANCi AgICAgICAgICAgICAgICAgICAgICAgICAgICAgICAgICAgICAgICAgICAgICAgICAgICAgICAgICAgIC AgICAgICAgICAgICAgICAgICAgICAgICAgICAgICAg ICAgICAgICANCiAgICAgICAgICAgICAgICAgICAgICAgICAgICAgICAgICAgICAgICAgICAgICAgICAg ICAgICAgICAgICAgICAgICAgICAgICAgICAgICAgICAgICAgICAgICAgICAgICAgICANCiAgICAgICAg ICAgICAgICAgICAgICAgICAgICAgICAgICAgICAgIC AgICAgICAgICAgICAgICAgICAgICAgICAgICAgICAgICAgICAgICAgICAgICAgICAgICAgICAgICAgIC ANCiAgICAgICAgICAgICAgICAgICAgICAgICAgICAgICAgICAgICAgICAgICAgICAgICAgICAgICAgIC AgICAgICAgICAgICAgICAgICAgICAgICAgICAgICAg ICAgICAgICAgICANCiAgICAgICAgICAgICAgICAgICAgICAgICAgICAgICAgICAgICAgICAgICAgICAg ICAgICAgICAgICAgICAgICAgICAgICAgICAgICAgICAgICAgICAgICAgICAgICAgICAgICANCiAgICAg ICAgICAgICAgICAgICAgICAgICAgICAgICAgICAgIC AgICAgICAgICAgICAgICAgICAgICAgICAgICAgICAgICAgICAgICAgICAgICAgICAgICAgICAgICAgIC AgICANCiAgICAgICAgICAgICAgICAgICAgICAgICAgICAgICAgICAgICAgICAgICAgICAgICAgICAgIC AgICAgICAgICAgICAgICAgICAgICAgICAgICAgICAg ICAgICAgICAgICAgICANCiAgICAgICAgICAgICAgICAgICAgICAgICAgICAgICAgICAgICAgICAgICAg ICAgICAgICAgICAgICAgICAgICAgICAgICAgICAgICAgICAgICAgICAgICAgICAgICAgICAgICANCjw/ zRIqX0tofAOagbV1T4bxBl9LKc0URV3vj7ZlXHApMC udykWoVzxLItKqFTRuUjrOIvi2QZqqYA6CdKAwN4FtZ1JyNYdqAY0KEDEtEXHilHYkYEDmBLEgYnM5OZ HnMCjgUK7LwFKeXDvnAYLuJNJtPvHlAPNtHSOjPZKeZW6SWEGrF921fuHiDa5HUm3FIyCnKO7zux0IGC GaEDMoGnbUQxk4QKclFX2LdNMuH3VoxXKhz5zVMdDb Z3FZZEL0FJYqZr0QZETzYiFxMVVaWXmlZR4tMAKlCWMTdZcausW0TA1OHE8aywAsWT2PVdHkGh9iIp1B DkKsC4UlL2CeXCTaCAWFVNwxRG1VYBQkWTJ6LEYrSAGiRELVNpVuG55pXA8VB0Byu57sWiH4LJLvUzQb RNviWL52fTmrayZwwSVzwCjeHR9NPx4+DQplbmRvYm cSXnmlCTELTeAeVGIPRjWbRSOaVYNnUCLyJdW5WsVtAp0UYLJmOHGvTLBkQcPvNAHaGFJpFSweLSUtHL HdKhy2INNbAQOcYJ1GTwFlAGRpEqH6DWEfKMDlPTEhbs8HTTSjJLGkMGC7LDKzWZWkLAKrFOcbMNTxXI J2FCEtTVEmZPNfNJ2GYoDvYCQcECA1HOSaRLOtLUZf qt0HDGZbQEBtADwlJnNwGNDvHEKlYUzqJKZuOZZ7IAR4LTOvDZNoXN7OPcMtQPTmZJE5PFWpCHCwQGAl ij4WXBKjDFFjChO5PHQlPPYbZBSmONujKCZoNPQvFwP8STGuXUCeYZ2PAbLeMLXaXVL8YSIwLAZkJANt jn3AZNKlZQHwFYAlAZOeYNJmJFLcXYvtXKYrQUK3JP byEPYmDISaSG0VOxGjAIAwCVEcENGmHLXzKGCxwt6SADGtCORhTAP1YkVwRMWuNDMwJUhcITJwTZA7Ta OjKLIkTQLeGH2HTdNyUDKoFQO0BMQpTYWwPJNczj5KPVPlRZOkHayxBaDbNMVaIWHbVAdwQBTgRFA3Sq s5AEFxYHFaBY5YSeVnHOHmMBv6LNXjCVEbGLMsbz9U YAZyKSSaQGG5QMMmUDCcVOQsJOfnDJUpSXG4Xwf6XAGjPWIeIH0ZEoDkTMNtSMj8BxWqUNEpVTGgyc7A OSYxMXNsPOf5YvBhYDHdJIPoLNihDAKpXNH3LmPsDBQbUWXhYD0REgPnPBQgSGm2GOusCPSuYEBkwr9P GDMdIRJlEOX7PNIqIYFhOCMhDAzlMEYxLOOdCQW8GS HrQDTwOH7CVmRaTJYcHdOmULybWNZaPMNajp3OBRKzHULfNEMzXKHfXGOqFADgKIamBHRhTQAfQPs6SG CkQZGtAC6XYwMfTEBgJmQsLoMfMOPxOVBsqi2TSNTtEDRuGMS1FcApTMRqAWZzQVovAKQsWHBpHwX9KG LmESHhZN4KXbPvXXBlSoD6WhhfCUCqNRXzcl4ZOLOv AIPrAnYbQKNxKGAhOSRsDDsaSNMlIMTqWjJ5YFFnVVMoXR6BYyYmRBLjCyMxRiVoBMVoLOFpuo2PWJKy UJBnFJPgQMHvYCXyRJOdILo8vxZexNJnVCl4MC3EW9NmexUxDHBBOu9Hg993FHDvCLPzCz1WD0xvRv2e MMMnUSNAHo3VLWd8XVB1UmLvOeFxENXhEmKhDCDaCR JuZ6UwBrKmWPU6HPR+AOaiEKckNPJqBFO2TkOnYhI6EOE2Q1DiUbU1UBH5OQRgIT1zFGAKXw5+DQpzdG HndVihCMUWLaA3Zas0EYjrWXGAJx2X ID Date Data Source NON PLASTICS SCIENTIST CYTOLOGY REQ FOR SERVI 08/11/2020 12:00:00 AM EST eC W1 ([facility]) Name Value Range Interpretation Code Description Data Anneliese rce(s) Supporting Document(s) URINE eCW1 ([facility]) ID Date Data Source URINE CULTURE 08/11/2020 12:00:00 AM EST eCW1 ([facility]) Name Value Range Interpretation Code Description Data Anneliese rce(s) Supporting Document(s) URINE CULTURE eCW1 ([facility]) ID Date Data Source UA URINALYSIS 05/01/2020 12:00:00 AM EST eCW1 ([facility]) Name Value Range Interpretation Code Description Data Anneliese rce(s) Supporting Document(s) UA URINALYSIS eCW1 ([facility]) ID Date Data Source LIPID PANEL (CARDIAC RISK) 05/01/2020 12:00:00 AM EST eCW1 ( [facility]) Name Value Range Interpretation Code Description Data Anneliese rce(s) Supporting Document(s) Cholesterol in LDL [Mass/volume] in Serum or Plasma by calculation 165 <100 LDL CHOLESTEROL eCW1 ([facility]) Triglyceride [Mass/volume] in Serum or Plasma by calculation 493 <150 TRIGLYCERIDES LEVEL eCW1 ([facility]) 6.972 <5 CHOLESTEROL RISK RATIO eCW1 ([facility]) Cholesterol [Moles/volume] in Serum or Plasma 251 <200 CHOLESTEROL LEVEL eCW1 ([facility]) Cholesterol in HDL [Moles/volume] in Serum or Plasma 36 >40 HDL CHOLESTEROL eCW1 ([facility]) 215 NON-HDL-C eCW1 ([facility]) ID Date Data Source Comprehensive Metabolic Profile (CMP) 05/01/2020 12:00:00 AM EST eCW1 ([facility]) Name Value Range Interpretation Code Description Data Anneliese rce(s) Supporting Document(s) 15 7-18 BLOOD UREA NITROGEN eCW1 ([facility]) 1.43 0.70-1.30 CREATININE FOR GFR eCW1 ([facility]) > 60.0 >60 GLOMERULAR FILTRATION RATE eCW 1 ([facility]) 115 70-100 GLUCOSE, FASTING eCW1 ([facility]) 138 136-145 SODIUM LEVEL eCW1 ([facility]) 99 98-107 CHLORIDE LEVEL eCW1 ([facility]) 34 21-32 CARBON DIOXIDE LEVEL eCW1 (On license of [facility]) 3.2 3.5-5.1 POTASSIUM SERUM eCW1 ([facility]) 9.3 8.5-10.1 CALCIUM LEVEL eCW1 ([facility]) 61 12-78 ALT/SGPT eCW1 ([facility]) 25 7-37 AST/SGOT eCW1 ([facility]) 72 45-117 ALKALINE PHOSPHATASE eCW1 (On license of [facility]) 0.3 0.2-1.0 BILIRUBIN,TOTAL eCW1 ([facility]) 0.9 ALBUMIN/GLOBULIN RATIO eCW1 ([facility]) 7.4 6.4-8.2 TOTAL PROTEIN eCW1 ([facility]) 3.5 3.2-5.2 ALBUMIN eCW1 ([facility]) ID Date Data Source [id number] 04/14/2020 12:00:00 AM EST eCW1 ([facility]) Name Value Range Interpretation Code Description Data Anneliese rce(s) Supporting Document(s) Albumin/Creatinine [Mass Ratio] in Urine 467.0 MALB URINE SIEMENS eCW1 ([facility]) Microalbumin/Creatinine [Ratio] in Urine 1056.5 0.0-30.0 HAYDEN/CREAT RATIO eCW1 ([facility]) Microalbumin/Creatinine [Mass Ratio] in Urine 44.2 CREATININE, URINE eCW1 ([facility]) Procedure Social History Code Duration Value Status Description Data Source(s ) Smoking 04/15/2021 12:00:00 AM EDT Never Smoker completed Never S moker eCW1 ([facility]) Alcohol intake 04/15/2021 12:00:00 AM EDT Lifetime non-drinker (finding) completed Lifetime non-drinker (finding) [facility] Smoking 03/30/2021 12:00:00 AM EDT Never Smoker completed Never S moker eCW1 ([facility]) Smoking 03/24/2021 12:00:00 AM EDT Never Smoker completed Never S moker eCW1 ([facility]) Smoking 03/24/2021 12:00:00 AM EDT Never Smoked Cigarettes com pleted Never Smoked Cigarettes MEDENT ([facility]) Alcohol intake 02/23/2021 12:00:00 AM EDT Lifetime non-drinker (finding) completed Lifetime non-drinker (finding) [facility] Alcohol intake 11/04/2020 12:00:00 AM EDT Lifetime non-drinker (finding) completed Lifetime non-drinker (finding) [facility] Smoking 09/17/2020 12:00:00 AM EDT Never Smoker completed Never S moker eCW1 ([facility]) Smoking 09/05/2020 12:00:00 AM EDT Never Smoker completed Never S moker eCW1 ([facility]) Smoking 08/11/2020 12:00:00 AM EST Never Smoker completed Never S moker eCW1 ([facility]) Smoking 08/11/2020 12:00:00 AM EST Never Smoker completed Never S moker eCW1 ([facility]) Smoking 08/11/2020 12:00:00 AM EST Never Smoker completed Never S moker eCW1 ([facility]) Smoking 08/11/2020 12:00:00 AM EST Never Smoker completed Never S moker eCW1 ([facility]) Smoking 08/11/2020 12:00:00 AM EST Never Smoker completed Never S moker eCW1 ([facility]) Smoking 07/03/2020 12:00:00 AM EST Never Smoker completed Never S moker eCW1 ([facility]) Smoking 07/03/2020 12:00:00 AM EST Never Smoker completed Never S moker eCW1 ([facility]) Smoking 07/03/2020 12:00:00 AM EST Never Smoker completed Never S moker eCW1 ([facility]) Smoking 07/03/2020 12:00:00 AM EST Never Smoker completed Never S moker eCW1 ([facility]) Smoking 07/03/2020 12:00:00 AM EST Never Smoker completed Never S moker eCW1 ([facility]) Smoking 07/03/2020 12:00:00 AM EST Never Smoker completed Never S moker eCW1 ([facility]) Smoking 07/03/2020 12:00:00 AM EST Never Smoker completed Never S moker eCW1 ([facility]) Smoking 07/03/2020 12:00:00 AM EST Never Smoker completed Never S moker eCW1 ([facility]) Smoking 07/03/2020 12:00:00 AM EST Never Smoker completed Never S moker eCW1 ([facility]) Alcohol intake 07/01/2020 12:00:00 AM EST Never completed [facility] Smoking 07/01/2020 12:00:00 AM EST Never smoker completed Never s moker [facility] Alcohol intake 06/03/2020 12:00:00 AM EST Never completed [facility] Smoking 06/03/2020 12:00:00 AM EST Never smoker completed Never s moker [facility] Smoking 06/02/2020 12:00:00 AM EST Never Smoker completed Never S moker eCW1 ([facility]) Smoking 06/02/2020 12:00:00 AM EST Never Smoker completed Never S moker eCW1 ([facility]) Smoking 06/02/2020 12:00:00 AM EST Never Smoker completed Never S moker eCW1 ([facility]) Smoking 06/02/2020 12:00:00 AM EST Never Smoker completed Never S moker eCW1 ([facility]) Tobacco use and exposure 05/07/2020 12:00:00 AM EST Current user co mpleted Current user [facility] Smoking 05/07/2020 12:00:00 AM EST Never smoker completed Never s mdker [facility] Alcohol intake 05/07/2020 12:00:00 AM EST Never completed [facility] Smoking 05/07/2020 12:00:00 AM EST Never smoker completed Never s moker [facility] Smoking 05/01/2020 12:00:00 AM EST Never Smoker completed Never S moker eCW1 ([facility]) Smoking 05/01/2020 12:00:00 AM EST Never Smoker completed Never S moker eCW1 ([facility]) Smoking 04/10/2020 12:00:00 AM EDT Never Smoker completed Never S moker eCW1 ([facility]) Smoking 04/10/2020 12:00:00 AM EDT Never Smoker completed Never S moker eCW1 ([facility]) Smoking 04/10/2020 12:00:00 AM EDT Never Smoker completed Never S moker eCW1 ([facility]) Smoking 04/10/2020 12:00:00 AM EDT Never Smoker completed Never S moker eCW1 ([facility]) Smoking 04/03/2020 12:00:00 AM EDT Never Smoker completed Never S moker eCW1 ([facility]) Smoking 04/03/2020 12:00:00 AM EDT Never Smoker completed Never S moker eCW1 ([facility]) Smoking 04/03/2020 12:00:00 AM EDT Never Smoker completed Never S moker eCW1 ([facility]) Smoking 04/03/2020 12:00:00 AM EDT Never Smoker completed Never S moker eCW1 ([facility]) Vital Signs ID Date Data Source UNK Name Value Range Interpretation Code Description Data Source(s) Systolic blood pressure 152 mm[Hg] 152 mm[Hg] [facility] Diastolic blood pressure 92 mm[Hg] 92 mm[Hg] [facility] Heart rate 69 /min 69 /min [facility] Body height 190.5 cm 190.5 cm [facility] Body weight 120.203 kg 120.203 kg [facility] Body mass index (BMI) [Ratio] 33.12 kg/m2 33.12 kg/m2 [facility] Oxygen saturation in Arterial blood by Pulse oximetry 100 % 100 % [facility] Body weight 261 [lb_av] 261 [lb_av] eCW1 ([facility]) Body weight 118.39 kg 118.39 kg W1 ([facility]) Body height 74 [in_i] 74 [in_i] W1 ([facility]) Body mass index (BMI) [Ratio] 33.51 kg/m2 33.51 kg/m2 W1 ([facility]) Heart rate 70 /min 70 /min eCW1 ([facility]) Respiratory rate 18 /min 18 /min eCW1 ([facility]) Body temperature 96.3 [degF] 96.3 [degF] eCW1 ( [facility]) Systolic blood pressure 140 mm[Hg] 140 mm[Hg] e CW1 ([facility]) Diastolic blood pressure 84 mm[Hg] 84 mm[Hg] eCW1 ([facility]) Systolic blood pressure 120 mm[Hg] 120 mm[Hg] M EDENT ([facility]) Diastolic blood pressure 70 mm[Hg] 70 mm[Hg] MEDENT ([facility] Heart rate 67 /min 67 /min [facility] ([facility]) Oxygen saturation in Arterial blood by Pulse oximetry 98 % 98 % [facility] ([facility]) Body height 75 [in_i] 75 [in_i] [facility] ([facility]) 6'3" Body weight 260.00 [lb_av] 260.00 [lb_av] MEDEN T ([facility]) Body mass index (BMI) [Ratio] 32.5 kg/m2 32.5 k g/m2 [facility] ([facility]) [place] body weight 196 [lb_av] 196 [lb_av] MEDEN T ([facility]) Body weight 117.936 kg 117.936 kg [facility] ([facility]) Body surface area Derived from formula 2.45 m2 2.45 m2 [facility] ([facility]) Systolic blood pressure 160 mm[Hg] 160 mm[Hg] [facility] Diastolic blood pressure 110 mm[Hg] 110 mm[Hg] [facility] Heart rate 68 /min 68 /min [facility] Body height 190.5 cm 190.5 cm [facility] Body weight 119.75 kg 119.75 kg [facility] Body mass index (BMI) [Ratio] 33.00 kg/m2 33.00 kg/m2 [facility] Oxygen saturation in Arterial blood by Pulse oximetry 97 % 97 % [facility] [place] body weight 196 [lb_av] 196 [lb_av] MEDEN T ([facility]) Body weight 119.297 kg 119.297 kg [facility] ([facility]) Body surface area Derived from formula 2.47 m2 2.47 m2 [facility] ([facility]) Systolic blood pressure 142 mm[Hg] 142 mm[Hg] M EDENT ([facility]) Diastolic blood pressure 84 mm[Hg] 84 mm[Hg] [facility] ([facility]) Heart rate 70 /min 70 /min [facility] ([facility]) Oxygen saturation in Arterial blood by Pulse oximetry 98 % 98 % [facility] Body height 75 [in_i] 75 [in_i] [facility] ([facility], ) 6'3" Body weight 263.00 [lb_av] 263.00 [lb_av] MEDEN T ([facility], ) Body mass index (BMI) [Ratio] 32.9 kg/m2 32.9 k g/m2 [facility] ([facility], ) Body weight 254.4 [lb_av] 254.4 [lb_av] eCW1 ([facility]) Body height 74 [in_i] 74 [in_i] eCW1 ([facility]) Body mass index (BMI) [Ratio] 32.66 kg/m2 32.66 kg/m2 W1 ([facility]) Heart rate 75 /min 75 /min eCW1 ([facility]) Respiratory rate 18 /min 18 /min eCW1 ([facility]) Body temperature 97.5 [degF] 97.5 [degF] eCW1 ( [facility]) Systolic blood pressure 130 mm[Hg] 130 mm[Hg] e CW1 ([facility]) Diastolic blood pressure 78 mm[Hg] 78 mm[Hg] eCW1 ([facility]) Systolic blood pressure 136 mm[Hg] 136 mm[Hg] [facility] Oxygen saturation in Arterial blood by Pulse oximetry 98 % 98 % [facility] Diastolic blood pressure 70 mm[Hg] 70 mm[Hg] [facility] Heart rate 76 /min 76 /min [facility] Body weight 116.121 kg 116.121 kg [facility] Body mass index (BMI) [Ratio] 32.00 kg/m2 32.00 kg/m2 [facility] Body weight 255 [lb_av] 255 [lb_av] eCW1 ([facility]) Body height 74 [in_i] 74 [in_i] eCW1 ([facility]) Body mass index (BMI) [Ratio] 32.74 kg/m2 32.74 kg/m2 eCW1 ([facility]) Heart rate 88 /min 88 /min eCW1 ([facility]) Respiratory rate 18 /min 18 /min eCW1 ([facility]) Body temperature 97.5 [degF] 97.5 [degF] eCW1 ( [facility]) Systolic blood pressure 156 mm[Hg] 156 mm[Hg] e CW1 ([facility]) Diastolic blood pressure 113 mm[Hg] 113 mm[Hg] eCW1 ([facility]) Heart rate 118 /min 118 /min eCW1 ([facility]) Body mass index (BMI) [Ratio] 32.99 kg/m2 32.99 kg/m2 eCW1 ([facility]) Systolic blood pressure 144 mm[Hg] 144 mm[Hg] e CW1 ([facility]) Diastolic blood pressure 102 mm[Hg] 102 mm[Hg] eCW1 ([facility]) Body weight 257 [lb_av] 257 [lb_av] eCW1 ([facility]) Body height 74 [in_i] 74 [in_i] eCW1 ([facility]) Body temperature 96.4 [degF] 96.4 [degF] eCW1 ( [facility]) Respiratory rate 18 /min 18 /min eCW1 ([facility]) Body weight 254 [lb_av] 254 [lb_av] eCW1 ([facility]) Body height 74 [in_i] 74 [in_i] eCW1 ([facility]) Body mass index (BMI) [Ratio] 32.61 kg/m2 32.61 kg/m2 eCW1 ([facility]) Heart rate 73 /min 73 /min eCW1 ([facility]) Respiratory rate 18 /min 18 /min eCW1 ([facility]) Body temperature 97.4 [degF] 97.4 [degF] eCW1 ( [facility]) Systolic blood pressure 126 mm[Hg] 126 mm[Hg] e CW1 ([facility]) Diastolic blood pressure 78 mm[Hg] 78 mm[Hg] eCW1 ([facility]) Oxygen saturation in Arterial blood by Pulse oximetry 98 % 98 % [facility] Systolic blood pressure 147 mm[Hg] 147 mm[Hg] [facility] Diastolic blood pressure 100 mm[Hg] 100 mm[Hg] [facility] Heart rate 87 /min 87 /min [facility] Body height 190.5 cm 190.5 cm [facility] Body weight 117.482 kg 117.482 kg [facility] Body mass index (BMI) [Ratio] 32.37 kg/m2 32.37 kg/m2 [facility] Body height 75 [in_i] 75 [in_i] [facility] 6'3" Body weight 256.38 [lb_av] 256.38 [lb_av] MEDEN T ([facility], ) Heart rate 74 /min 74 /min [facility] ([facility], ) Body mass index (BMI) [Ratio] 32.0 kg/m2 32.0 k g/m2 [facility] ([facility], ) [place] body weight 196 [lb_av] 196 [lb_av] MEDEN T ([facility], ) Body weight 116.292 kg 116.292 kg [facility] ([facility]) Body surface area Derived from formula 2.44 m2 2.44 m2 [facility] ([facility]) Systolic blood pressure 171 mm[Hg] 171 mm[Hg] M EDENT ([facility], ) Diastolic blood pressure 101 mm[Hg] 101 mm[Hg] [facility] ([facility], ) Body height 75 [in_i] 75 [in_i] MEDENT ([facility]) 6'3" Body weight 256.38 [lb_av] 256.38 [lb_av] MEDEN T ([facility], ) Body mass index (BMI) [Ratio] 32.0 kg/m2 32.0 k g/m2 MEDENT ([facility], ) [place] body weight 196 [lb_av] 196 [lb_av] MEDEN T ([facility], ) Body weight 116.292 kg 116.292 kg MEDENT ([facility], ) Body surface area Derived from formula 2.44 m2 2.44 m2 MEDENT ([facility], ) Body temperature 97.7 [degF] 97.7 [degF] MEDENT ([facility]) Systolic blood pressure 150 mm[Hg] 150 mm[Hg] [facility] Diastolic blood pressure 100 mm[Hg] 100 mm[Hg] [facility] Heart rate 96 /min 96 /min [facility] Body weight 117.935 kg 117.935 kg [facility] Body mass index (BMI) [Ratio] 32.50 kg/m2 32.50 kg/m2 [facility] Oxygen saturation in Arterial blood by Pulse oximetry 98 % 98 % [facility] Diastolic blood pressure 80 mm[Hg] 80 mm[Hg] [facility] Systolic blood pressure 140 mm[Hg] 140 mm[Hg] [facility] Heart rate 75 /min 75 /min [facility] Body height 190.5 cm 190.5 cm [facility] Body weight 117.482 kg 117.482 kg [facility] Body mass index (BMI) [Ratio] 32.37 kg/m2 32.37 kg/m2 [facility] Oxygen saturation in Arterial blood by Pulse oximetry 98 % 98 % [facility] Body weight 255 [lb_av] 255 [lb_av] W1 ([facility]) Body height 74 [in_i] 74 [in_i] eCW1 ([facility]) Body mass index (BMI) [Ratio] 32.74 kg/m2 32.74 kg/m2 [facility] ([facility]) Heart rate 67 /min 67 /min W1 ([facility]) Respiratory rate 18 /min 18 /min eCW1 ([facility]) Body temperature 97.1 [degF] 97.1 [degF] eCW1 ( [facility]) Systolic blood pressure 128 mm[Hg] 128 mm[Hg] e CW1 ([facility]) Diastolic blood pressure 68 mm[Hg] 68 mm[Hg] eCW1 ([facility]) Systolic blood pressure 132 mm[Hg] 132 mm[Hg] [facility] Diastolic blood pressure 78 mm[Hg] 78 mm[Hg] [facility] Heart rate 78 /min 78 /min [facility] Body height 190.5 cm 190.5 cm [facility] Body weight 115.214 kg 115.214 kg [facility] Body mass index (BMI) [Ratio] 31.75 kg/m2 31.75 kg/m2 [facility] Oxygen saturation in Arterial blood by Pulse oximetry 97 % 97 % [facility] Body weight 253 [lb_av] 253 [lb_av] eCW1 ([facility]) Respiratory rate 18 /min 18 /min eCW1 ([facility]) Body temperature 97.0 [degF] 97.0 [degF] eCW1 ( [facility]) Heart rate 85 /min 85 /min eCW1 ([facility]) Body height 74 [in_i] 74 [in_i] eCW1 ([facility]) Body mass index (BMI) [Ratio] 32.48 kg/m2 32.48 kg/m2 eCW1 ([facility]) Diastolic blood pressure 130 mm[Hg] 130 mm[Hg] eCW1 ([facility]) Systolic blood pressure 178 mm[Hg] 178 mm[Hg] e CW1 ([facility]) Systolic blood pressure 145 mm[Hg] 145 mm[Hg] [facility] Diastolic blood pressure 86 mm[Hg] 86 mm[Hg] [facility] Body weight 115.214 kg 115.214 kg [facility] Body mass index (BMI) [Ratio] 31.75 kg/m2 31.75 kg/m2 [facility] Oxygen saturation in Arterial blood by Pulse oximetry 99 % 99 % [facility] Heart rate 78 /min 78 /min [facility] Body height 190.5 cm 190.5 cm [facility] Body temperature 97.1 [degF] 97.1 [degF] [facility] ([facility] Body weight 261 [lb_av] 261 [lb_av] eCW1 ([facility]) Body height 74 [in_i] 74 [in_i] eCW1 ([facility]) Body mass index (BMI) [Ratio] 33.51 kg/m2 33.51 kg/m2 eCW1 ([facility]) Heart rate 86 /min 86 /min eCW1 ([facility]) Respiratory rate 20 /min 20 /min eCW1 ([facility]) Body temperature 96.4 [degF] 96.4 [degF] eCW1 ( [facility]) Systolic blood pressure 134 mm[Hg] 134 mm[Hg] e CW1 ([facility]) Diastolic blood pressure 84 mm[Hg] 84 mm[Hg] eCW1 ([facility]) Body weight 258.2 [lb_av] 258.2 [lb_av] eCW1 ([facility]) Body height 74 [in_i] 74 [in_i] eCW1 ([facility]) Body mass index (BMI) [Ratio] 33.15 kg/m2 33.15 kg/m2 eCW1 ([facility]) Heart rate 73 /min 73 /min eCW1 ([facility]) Respiratory rate 18 /min 18 /min eCW1 ([facility]) Body temperature 97.1 [degF] 97.1 [degF] eCW1 ( [facility]) Systolic blood pressure 142 mm[Hg] 142 mm[Hg] e CW1 ([facility]) Diastolic blood pressure 82 mm[Hg] 82 mm[Hg] eCW1 ([facility]) Body weight 261 [lb_av] 261 [lb_av] eCW1 ([facility]) Body height 74 [in_i] 74 [in_i] eCW1 ([facility]) Body mass index (BMI) [Ratio] 33.51 kg/m2 33.51 kg/m2 eCW1 ([facility]) Heart rate 80 /min 80 /min eCW1 ([facility]) Respiratory rate 19 /min 19 /min eCW1 ([facility]) Body temperature 96.0 [degF] 96.0 [degF] eCW1 ( [facility]) Systolic blood pressure 176 mm[Hg] 176 mm[Hg] e CW1 ([facility]) Diastolic blood pressure 108 mm[Hg] 108 mm[Hg] eCW1 ([facility]) Body weight 262.4 [lb_av] 262.4 [lb_av] eCW1 ([facility]) Body height 74 [in_i] 74 [in_i] eCW1 ([facility]) Body mass index (BMI) [Ratio] 33.69 kg/m2 33.69 kg/m2 eCW1 ([facility]) Heart rate 85 /min 85 /min eCW1 ([facility]) Respiratory rate 18 /min 18 /min eCW1 ([facility]) Body temperature 96.7 [degF] 96.7 [degF] eCW1 ( [facility]) Systolic blood pressure 144 mm[Hg] 144 mm[Hg] e CW1 ([facility]) Diastolic blood pressure 90 mm[Hg] 90 mm[Hg] eCW1 ([facility]) Patient Treatment Plan of Care Planned Activity Planned Date Details Description Data Source (s) Lisinopril 30 MG Oral Tablet 04/15/2021 12:00:00 AM EDT [facility] Hydrochlorothiazide 25 MG Oral Tablet 04/04/2021 12:00:00 AM EDT [facility] Aspirin 81 MG Delayed Release Oral Tablet 02/23/2021 12:00:00 AM ED T [facility] Lisinopril 20 MG Oral Tablet 02/23/2021 12:00:00 AM EDT [facility] Lisinopril 40 MG Oral Tablet 11/04/2020 12:00:00 AM EDT [facility] Rosuvastatin calcium 10 MG Oral Tablet 09/22/2020 12:00:00 AM EDT [facility] Docusate Sodium 50 MG / sennosides, CORRECTION 8.6 MG Oral Ta blet [SENOKOT-S] 09/05/2020 12:00:00 AM EDT eCW1 ([facility]) Docusate Sodium 50 MG / sennosides, CORRECTION 8.6 MG Oral Ta blet [SENOKOT-S] 09/05/2020 12:00:00 AM EDT eCW1 ([facility]) Docusate Sodium 50 MG / sennosides, CORRECTION 8.6 MG Oral Ta blet [SENOKOT-S] 09/05/2020 12:00:00 AM EDT eCW1 ([facility]) Rosuvastatin calcium 10 MG Oral Tablet 09/01/2020 12:00:00 AM EDT [facility] Cephalexin 500 MG Oral Capsule 08/11/2020 12:00:00 AM EST eCW1 ([facility]) Cephalexin 500 MG Oral Capsule 08/11/2020 12:00:00 AM EST eCW1 ([facility]) Cephalexin 500 MG Oral Capsule 08/11/2020 12:00:00 AM EST eCW1 ([facility]) Cephalexin 500 MG Oral Capsule 08/11/2020 12:00:00 AM EST eCW1 ([facility]) Cephalexin 500 MG Oral Capsule 08/11/2020 12:00:00 AM EST eCW1 ([facility]) Hydrochlorothiazide 25 MG Oral Tablet 08/07/2020 12:00:00 AM EST [facility] Rosuvastatin calcium 10 MG Oral Tablet 07/01/2020 12:00:00 AM EST [facility] Polyvinyl Alcohol 0.014 ML/ML Ophthalmic Solution 06/17/2020 12: 00:00 AM EST [facility] Lidocaine 5 % 06/12/2020 12:00:00 AM EST eCW1 ([facility]) Lidocaine 5 % 06/12/2020 12:00:00 AM EST eCW1 ([facility]) Lidocaine 5 % 06/12/2020 12:00:00 AM EST eCW1 ([facility]) Lidocaine 5 % 06/12/2020 12:00:00 AM EST eCW1 ([facility]) Rosuvastatin calcium 10 MG Oral Tablet 06/03/2020 12:00:00 AM EST [facility] 24 HR Diltiazem Hydrochloride 180 MG Extended Release Oral Capsule 05/22/2020 12:00:00 AM EST [facility] Lisinopril 40 MG Oral Tablet 05/22/2020 12:00:00 AM EST [facility] Lisinopril 30 MG Oral Tablet 05/13/2020 12:00:00 AM EST eCW1 ([facility]) 24 HR Diltiazem Hydrochloride 180 MG Extended Release Oral Capsule 05/07/2020 12:00:00 AM EST [facility] atorvastatin 40 MG Oral Tablet 05/01/2020 12:00:00 AM EST eCW1 ([facility]) atorvastatin 40 MG Oral Tablet 05/01/2020 12:00:00 AM EST eCW1 ([facility]) Lisinopril 20 MG Oral Tablet 05/01/2020 12:00:00 AM EST eCW1 ([facility]) atorvastatin 40 MG Oral Tablet 05/01/2020 12:00:00 AM EST eCW1 ([facility]) Lisinopril 20 MG Oral Tablet 05/01/2020 12:00:00 AM EST eCW1 ([facility]) Lisinopril 10 MG Oral Tablet 04/22/2020 12:00:00 AM EST [facility] Lisinopril 10 MG Oral Tablet 04/21/2020 12:00:00 AM EST eCW1 ([facility]) Isosorbide Dinitrate 30 MG Oral Tablet 04/21/2020 12:00:00 AM EST eCW1 ([facility]) Lisinopril 10 MG Oral Tablet 04/21/2020 12:00:00 AM EST eCW1 ([facility]) Isosorbide Dinitrate 30 MG Oral Tablet 04/21/2020 12:00:00 AM EST eCW1 ([facility]) Isosorbide Dinitrate 30 MG Oral Tablet 04/21/2020 12:00:00 AM EST eCW1 ([facility]) Isosorbide Dinitrate 30 MG Oral Tablet 04/21/2020 12:00:00 AM EST eCW1 ([facility]) Nitroglycerin 0.3 MG Sublingual Tablet 04/09/2020 12:00:00 AM EDT [facility] Aspirin 81 MG Delayed Release Oral Tablet 04/09/2020 12:00:00 AM ED T [facility] Hydrochlorothiazide 25 MG Oral Tablet 04/09/2020 12:00:00 AM EDT [facility] atorvastatin 40 MG Oral Tablet 04/08/2020 12:00:00 AM EDT [facility] Nitroglycerin 0.3 MG Sublingual Tablet 04/08/2020 12:00:00 AM EDT eCW1 ([facility]) Nitroglycerin 0.3 MG Sublingual Tablet 04/08/2020 12:00:00 AM EDT eCW1 ([facility]) Nitroglycerin 0.3 MG Sublingual Tablet 04/08/2020 12:00:00 AM EDT eCW1 ([facility]) Nitroglycerin 0.3 MG Sublingual Tablet 04/08/2020 12:00:00 AM EDT eCW1 ([facility]) Nitroglycerin 0.3 MG Sublingual Tablet 04/08/2020 12:00:00 AM EDT eCW1 ([facility]) pregabalin 150 MG Oral Capsule 04/03/2020 12:00:00 AM EDT [facility] meloxicam 15 MG Oral Tablet 04/03/2020 12:00:00 AM EDT [facility] Aspirin 81 MG Delayed Release Oral Tablet 04/03/2020 12:00:00 AM ED T eCW1 ([facility]) atorvastatin 80 MG Oral Tablet 04/03/2020 12:00:00 AM EDT eCW1 ([facility]) Aspirin 81 MG Delayed Release Oral Tablet 04/03/2020 12:00:00 AM ED T eCW1 ([facility]) Hydrochlorothiazide 25 MG Oral Tablet 04/03/2020 12:00:00 AM EDT eCW1 ([facility]) Aspirin 81 MG Delayed Release Oral Tablet 04/03/2020 12:00:00 AM ED T eCW1 ([facility]) atorvastatin 80 MG Oral Tablet 04/03/2020 12:00:00 AM EDT eCW1 ([facility]) Hydrochlorothiazide 25 MG Oral Tablet 04/03/2020 12:00:00 AM EDT eCW1 ([facility]) Aspirin 81 MG Delayed Release Oral Tablet 04/03/2020 12:00:00 AM ED T eCW1 ([facility]) atorvastatin 80 MG Oral Tablet 04/03/2020 12:00:00 AM EDT eCW1 ([facility]) Hydrochlorothiazide 25 MG Oral Tablet 04/03/2020 12:00:00 AM EDT eCW1 ([facility]) Aspirin 81 MG Delayed Release Oral Tablet 04/03/2020 12:00:00 AM ED T eCW1 ([facility]) atorvastatin 80 MG Oral Tablet 04/03/2020 12:00:00 AM EDT eCW1 ([facility]) Hydrochlorothiazide 25 MG Oral Tablet 04/03/2020 12:00:00 AM EDT eCW1 ([facility]) atorvastatin 80 MG Oral Tablet 04/03/2020 12:00:00 AM EDT eCW1 ([facility]) Clonidine Hydrochloride 0.1 MG Oral Tablet 04/03/2020 12:00:00 AM E DT eCW1 ([facility]) Hydrochlorothiazide 25 MG Oral Tablet 04/03/2020 12:00:00 AM EDT eCW1 ([facility]) Isosorbide Dinitrate 30 MG Oral Tablet 04/03/2020 12:00:00 AM EDT eCW1 ([facility]) Aspirin 81 MG Delayed Release Oral Tablet 04/03/2020 12:00:00 AM ED T eCW1 ([facility]) atorvastatin 80 MG Oral Tablet 04/03/2020 12:00:00 AM EDT eCW1 ([facility]) Clonidine Hydrochloride 0.1 MG Oral Tablet 04/03/2020 12:00:00 AM E DT eCW1 ([facility]) Hydrochlorothiazide 25 MG Oral Tablet 04/03/2020 12:00:00 AM EDT eCW1 ([facility]) Isosorbide Dinitrate 30 MG Oral Tablet 04/03/2020 12:00:00 AM EDT eCW1 ([facility]) Aspirin 81 MG Delayed Release Oral Tablet 04/03/2020 12:00:00 AM ED T eCW1 ([facility]) atorvastatin 80 MG Oral Tablet 04/03/2020 12:00:00 AM EDT eCW1 ([facility]) Clonidine Hydrochloride 0.1 MG Oral Tablet 04/03/2020 12:00:00 AM E DT eCW1 ([facility]) Hydrochlorothiazide 25 MG Oral Tablet 04/03/2020 12:00:00 AM EDT eCW1 ([facility]) Isosorbide Dinitrate 30 MG Oral Tablet 04/03/2020 12:00:00 AM EDT eCW1 ([facility]) Aspirin 81 MG Delayed Release Oral Tablet 04/03/2020 12:00:00 AM ED T eCW1 ([facility]) Aspirin 81 MG Delayed Release Oral Tablet 04/03/2020 12:00:00 AM ED T eCW1 ([facility]) Hydrochlorothiazide 25 MG Oral Tablet 04/03/2020 12:00:00 AM EDT eCW1 ([facility]) Aspirin 81 MG Delayed Release Oral Tablet 04/03/2020 12:00:00 AM ED T eCW1 ([facility]) Hydrochlorothiazide 25 MG Oral Tablet 04/03/2020 12:00:00 AM EDT eCW1 ([facility]) albuterol (PROVENTIL HFA;VENTOLIN HFA) 108 (90 Base) M CG/ACT inhaler 03/27/2020 12:00:00 AM EDT [facility] Albuterol Sulfate HFA 108 (90 Base) MCG/ACT 03/27/2020 12:00:00 AM EDT eCW1 ([facility]) Albuterol Sulfate HFA 108 (90 Base) MCG/ACT 03/27/2020 12:00:00 AM EDT eCW1 ([facility]) Albuterol Sulfate HFA 108 (90 Base) MCG/ACT 03/27/2020 12:00:00 AM EDT eCW1 ([facility]) Omeprazole 20 MG Delayed Release Oral Capsule 02/07/2020 12:00:00 A M EDT [facility] Lisinopril 20 MG Oral Tablet [facility] Diltiazem Hydrochloride 30 MG Oral Tablet [facility]
[2021-04-22] MEDS ORDERED: CONRAY-60 60% 50ML VIAL (Q9961) As Ordered ONE (07:14)
[2021-04-22] MEDS ORDERED: MIDAZOLAM INJ 2MG/2ML VIAL (J2250 PER 1MG) As Ordered ONE (07:15)
[2021-04-22] MEDS ORDERED: fentaNYL 100 MCG/2 ML INJECTION (J3010) As Ordered ONE ×2 (07:15→08:11)
[2021-04-22] MEDS ORDERED: LIDOCAINE 2% 5ML JELLY UROJET As Ordered ONE (07:18)
[2021-04-22] MEDS ORDERED: ACETAMINOPHEN 1000MG 100ML IV BTL (OFIRMEV) (J0131 PER 10MG) As Ordered ONE (07:47)
[2021-04-22] MEDS ORDERED: fentaNYL 100 MCG/2 ML INJECTION (J3010) IV PRN (08:35)
[2021-04-22] MEDS ORDERED: METOCLOPRAMIDE INJ 10MG/2ML VIAL (J2765 PER 1) IV PRN (08:35)
[2021-04-22] MEDS ORDERED: LR 1,000 ML IV SCH (08:35)
[2021-04-22] MEDS ORDERED: ONDANSETRON 4MG/2ML VIAL IV PRN (08:35)
[2021-04-22] MEDS ORDERED: oxyCODONE 5MG TAB PO PRN (08:35)
[2021-04-22 08:45] VITALS: BP 146/93
--- NOTE | 2021-04-22 08:51 | REP ---
INDICATION: LEFT STENT PLACEMENT. COMPARISON: CT A/P 10 03/02/2021. TECHNIQUE: Two views from C-arm fluoroscopy provided to Dr. Silveira of the urology division. FINDINGS: First image shows catheter and wire into the region of the UPJ of the left kidney. Contrast seen in the collecting system. Second image shows a double pigtail stent coiled proximally in the left renal pelvis and distally in the left side of the bladder. Some contrast remains in the collecting system. IMPRESSION: Status post placement left internal ureteral stent. Fluoroscopy time: 13 seconds. <Electronically signed by Luke Langston > 04/22/21 0820
--- NOTE | 2021-04-22 09:14 | RO ---
OPERATIVE NOTE DATE OF OPERATION: 04/22/2021 PREOPERATIVE DIAGNOSES: Possible left ureteral mass, left kidney stones. POSTOPERATIVE DIAGNOSIS: Left ureteral stricture, left kidney stones. PROCEDURE: Cystoscopy, left ureteroscopy with basket extraction of stones, left retrograde pyelogram with intraoperative interpretation of images, left ureteral stent placement. SURGEON: Mark Silveira MD BUILDING DRAFTING OFFICER: None. ANESTHESIA: MAC. OPERATIVE INDICATIONS: This is a 40-year-old male who on recent CT urogram was found to have thickening of the ureteral wall in the mid-left ureter. This raised concern for a possible neoplasm. He was also found to have small kidney stones in the left kidney. He was brought to the operating room to investigate this ureteral wall thickening and also remove the stones in the left kidney. DESCRIPTION OF PROCEDURE: The patient was brought to the operating room and MAC anesthesia was administered. Prophylactic antibiotics were infused. He was placed in the dorsal lithotomy position, and prepped and draped in the usual sterile fashion. A rigid cystoscope was inserted in the urethral meatus and advanced into the bladder. A guidewire was advanced up the left collecting system. I then went up the left collecting system with a flexible ureteroscope and within the mid-left ureter, there was a mild ureteral stricture and no lesions were seen anywhere inside the ureter. This stricture was likely related to a previous kidney stones and was likely the cause of the thickening of the ureteral wall seen on CT. No tumors were seen inside the ureter. I then advanced the ureteroscope all the way into the left kidney and examined all the calices. Once in the lower pole calyx, there appeared to be an approximately 4-5 mm stone embedded in the wall of one of the renal papilla. I utilized a basket to free the stone up and when the basket freed it up, it actually broke up into several tiny stone fragments. I obtained a few of these and sent them for analysis. Once I confirmed no other stones were seen, the retrograde pyelogram was performed and was notable for mild to moderate left hydronephrosis and no extravasation. I then withdrew the ureteroscope and once again the only abnormality seen was mild stricture in the mid ureter. This stricture was not narrow enough to warrant any treatment. At this point, I utilized a guidewire to advance a 6 Kinyarwanda x 22-32 cm JJ ureteral stent up the left collecting system. The wire was removed and there were adequate curls of the stent in the left renal pelvis and in the bladder. The bladder was emptied of all fluids and this marked the conclusion of the procedure. The patient was taken out of dorsal lithotomy position, awakened from anesthesia and transported to the recovery room in stable condition. ESTIMATED BLOOD LOSS: 5 mL COMPLICATIONS: None. SPECIMENS: Kidney stones. PLAN: The patient will follow in urology clinic in a week or two for stent removal. MANI
[2021-04-23] MEDS ORDERED: LISI20TA33 PO (08:08)
[2021-04-23] MEDS ORDERED: TRAM50TA2 PO (13:08)
[2021-04-23] MEDS ORDERED: ACET1TAB55 PO (13:08)
[2021-04-23] MEDS ORDERED: PHEN1TAB73 PO (13:08)
[2021-04-23] MEDS ORDERED: OXYB5TAB10 PO (13:08)
[2021-04-27 23:07] LABS: CA Hydro Phos 10 % (.); Ca Ox Monohydrate 70 % (.); Size <1 mm (.)
== END 2021-04-22 09:03 | disposition home or self-care (01) ==
LOC: M SDC 06:22
PROVIDERS: ATTEND Urology
DX: N13.5 Crossing vessel and stricture of ureter without hydronephrosis (principal); N20.0 Calculus of kidney; G47.30 Sleep apnea, unspecified; I10 Essential (primary) hypertension; E78.00 Pure hypercholesterolemia, unspecified; M19.90 Unspecified osteoarthritis, unspecified site; R51.9 Headache, unspecified; R06.83 Snoring; R07.9 Chest pain, unspecified; R31.29 Other microscopic hematuria; R10.9 Unspecified abdominal pain; Z88.8 Allergy status to other drugs, medicaments and biological substances; Z88.5 Allergy status to narcotic agent; Z79.899 Other long term (current) drug therapy; Z79.82 Long term (current) use of aspirin; Z79.1 Long term (current) use of non-steroidal anti-inflammatories (NSAID); Z87.442 Personal history of urinary calculi
CPT/HCPCS: 52356; 74420; 82365; 88300; C1769; C1894; C2617; J0131; J0690; J2250; J3010; Q9961

== ENCOUNTER 2021-04-23 01:52 | Observation (INO) | payer OTHER ==
[~2021-04-23] VITALS: Ht 190.5 cm; Wt 109.1 kg
[~2021-04-23 01:52] MED LIST changes: -LIDOCAINE 1% MDV 20ML VIAL SQ PRN; -LR 1,000 ML IV ONE; -ceFAZolin SOD 2 GM in IV 1 EA IV ONE
--- OUTSIDE RECORDS SUMMARY | 2021-04-23 01:59 | CCD ---
Author Author [facility] Organization [facility] Address Unknown Phone Unavailable Support Name Relationship Address Phone HOMARANNEMA Next Of Kin [address] [place] [address] ST Next Of Kin Unknown Unavailable ALLIED [facility] Next Of Kin [address] [facility] [address] [place] [address] JOYA GRAF Next Of [facility] [address] [place] [address] [facility] [place] [address] SECURITY Next Of [address] [address] ICU SECURITY PRIVATE INVESTG Next Of [facility] [address] [place] [address] ICU SECURITY PRIVATE INVESTGATION Next Of [facility] [address] [place] [address] AUGUSTIN ODONNELL Next Of [facility] [address] [place] [address] Dille DDS, Noni Next Of [facility] [address] [place], [place] [id number] Dille DDS, Noni Next Of [facility] [address] [place] [address] [employer] Next Of [address] [address] MARELY GRAF Next Of [facility] [address] [place] [address] UE Next Of Kin Unknown Unavailable SECURITAS Next Of Kin [address] [place] [address] SECRURITAS Next Of Kin [address] [facility] [place] [address] ТАТЬЯНА DONAHUE Next Of Kin [address] [place] [address] MARY DONAHUE Next Of Kin [address] [place] [address] Anne Odonnellma RONY [address] [place] [address] [phone] Care Team Providers Care Flow Manager Name Role Phone Jeremiah Mccormack MD Unavailable [...] Unavailable Unavailable Jeremiah Mccormack MD Unavailable Unavailable Easton, Jeremiah Forbes MD Unavailable Unavailable Raymond, Jeremiah Forbes MD Unavailable Unavailable Raymond, Jeremiah Forbes MD Unavailable Unavailable Raymond, Jeremiah Forbes MD Unavailable Unavailable Easton, Jeremiah Forbes MD Unavailable Unavailable HANK, HUY RICK KITCHEN STEWARD-C Unavailable Unavailable HANK, HUY RICK KITCHEN STEWARD-C Unavailable Unavailable HANK, HUY RICK KITCHEN STEWARD-C Unavailable Unavailable HANK, HUY RICK KITCHEN STEWARD-C Unavailable Unavailable HANK, HUY RICK KITCHEN STEWARD-C Unavailable Unavailable HANK, HUY RICK KITCHEN STEWARD-C Unavailable Unavailable HANK, HUY RICK KITCHEN STEWARD-C Unavailable Unavailable HANK, HUY RICK KITCHEN STEWARD-C Unavailable Unavailable HANK, HUY RICK KITCHEN STEWARD-C Unavailable Unavailable HANK, HUY RICK KITCHEN STEWARD-C Unavailable Unavailable HANK, HUY RICK KITCHEN STEWARD-C Unavailable Unavailable HANK, HUY RICK KITCHEN STEWARD-C Unavailable Unavailable HANK, HUY RICK KITCHEN STEWARD-C Unavailable Unavailable HANK, HUY RICK KITCHEN STEWARD-C Unavailable Unavailable HANK, HYU RICK KITCHEN STEWARD-C Unavailable Unavailable HANK, HUY RICK KITCHEN STEWARD-C Unavailable Unavailable HANK, HUY RICK KITCHEN STEWARD-C Unavailable Unavailable Jose Maria, V PASQUALE PA-C Unavailable Unavailable Almont, V PASQUALE PA-C Unavailable Unavailable Almont, V PASQUALE PA-C Unavailable Unavailable Almont, V PASQUALE PA-C Unavailable Unavailable Jose Maria, V PASQUALE PA-C Unavailable Unavailable Jose Maria, V PASQUALE PA-C Unavailable Unavailable Jose Maria, V PASQUALE PA-C Unavailable Unavailable Almont, V PASQUALE PA-C Unavailable Unavailable Almont, V PASQUALE PA-C Unavailable Unavailable Almont, V PASQUALE PA-C Unavailable Unavailable Almont, V PASQUALE PA-C Unavailable Unavailable Jose Maria, V PASQUALE PA-C Unavailable Unavailable Almont, V PASQUALE PA-C Unavailable Unavailable Jose Maria, V PASQUALE PA-C Unavailable Unavailable Perez, L Marla RPA Unavailable Unavailable Perez, L Marla RPA Unavailable Unavailable Perez, L Malra RPA Unavailable Unavailable Perez, L Marla RPA Unavailable Unavailable Perez, L Marla RPA Unavailable Unavailable Perez, L Marla RPA Unavailable Unavailable Perez, L Marla RPA Unavailable Unavailable Perez, L Maral RPA Unavailable Unavailable Perez, L Marla RPA [...] Unavailable Unavailable Tata Rehman MD Unavailable Unavailable Taat Rehman MD Unavailable Unavailable Tata Rehman MD [...] Unavailable Unavailable Tata Rehman MD Unavailable Unavailable aTta Rehman MD Unavailable Unavailable Tata Rehman MD [...] is protected by Article 27-F of the [place] Public [employer] law. If you continue you may have access to information: Regarding HIV / AIDS; Provided by facilities licensed or operated by the [place] Office of Mental Health; or Provided by the [place] Office for People With Developmental Disabilities. If such information is present, then the following [place] mandated warning applies: This information has been [...] law may result in a fine or mcfp sentence or both. A general authorization for the release of medical or other information is NOT sufficient authorization for further disc losure. Allergies and Adverse Reactions Type Description Substance Reaction Status Data Source(s ) Propensity to adverse reactions TAMSULOSIN tamsulosin Shortness Of Breath High Active [facility] High Propensity to adverse reactions OXYCODONE Oxycodone Acti ve [facility] Propensity to adverse reactions METHOCARBAMOL Methocarbamol Palpita tions Low Active [facility] Low Family History Family Member Name Family Member Gender Family Member Status Date o f Status Description Data Source(s) Unknown Male Problem MEDENT ([facility]) Encounters Encounter Providers Location Date Indications Data Source(s ) Outpatient Attender: PASQUALE GARCIACReferrer: Heriberto VANN.RACHEL-SJP.RACHEL 04/15/2021 12:00:00 AM EDT - 04/15/2021 03:44:18 PM EDT [facility] [place] [address] [facility] [address] 04/15/2021 12:00:00 AM EDT eCW1 ([facility]) [place] [address] [facility] [facility] [address] 03/30/2021 12:00:00 AM EDT eCW1 ([facility]) Outpatient Attender: RICK Hand/Stickney/Ivan/R eindl 03/24/2021 03:00:00 PM EDT [facility] ([facility]) [place] [address] [facility] [address] 03/24/2021 12:00:00 AM EDT eCW1 ([facility]) Outpatient Attender: PASQUALE BREWER-SJP.RACHEL 12:00:00 AM EDT - 02/23/2021 07:57:20 AM EDT [facility] Outpatient Attender: RICK Hand/Roque/Ivan/R eindl 02/20/2021 08:00:00 AM EDT [facility] ([facility]) Outpatient Referrer: PASQUALE LEERACHEL-SJP.RACHEL 12:00:00 AM EDT [facility] Out[place] [address] [facility] [address] 12/03/2020 12:00:00 AM EDT eCW1 ([facility]) [place] [address] [facility] [address] 11/13/2020 12:00:00 AM EDT eCW1 ([facility]) Outpatient Referrer: PASQUALE LEECT-SJP.SYR 12:00:00 AM EDT [facility] [address] [facility] [address] 11/06/2020 12:00:00 AM EDT [facility]CW[facility] Outpatient Attender: PASQUALE LEERACHEL-SJP.RACHEL 03:10:04 PM EDT - 11/04/2020 04:32:54 PM EDT [facility] [place] [address] [facility] [address] 10/08/2020 12:00:00 AM EDT eCW1 ([facility]) [place] [address] [facility] [address] 09/17/2020 12:00:00 AM EDT eCW1 ([facility]) [place] [address] [facility] [address] 09/12/2020 12:00:00 AM EDT eCW1 ([facility]) [place] [address] [facility] [address] 09/05/2020 12:00:00 AM EDT eCW1 ([facility]) [place] [address] [facility] [address] 08/27/2020 12:00:00 AM EDT eCW1 ([facility]) [place] [address] [facility] [address] 08/26/2020 12:00:00 AM EDT eCW1 ([facility]) [place] [address] [facility] [address] 08/14/2020 12:00:00 AM EST eCW1 ([facility]) Out[place] [address] [facility] [address] 08/11/2020 12:00:00 AM EST eCW1 ([facility]) Outpatient Attender: PASQUALE VANN.RACHEL-SJP.RACHEL 12:00:00 AM EST [facility] [place] [address] [facility] [address] 08/07/2020 12:00:00 AM EST eCW1 ([facility]) [place] [address] [facility] [address] 08/01/2020 12:00:00 AM EST eCW1 ([facility]) [place] [address] [facility] [address] 08/01/2020 12:00:00 AM EST eCW1 ([facility]) [place] [address] [facility] [address] 07/31/2020 12:00:00 AM EST eCW1 ([facility]) Outpatient Attender: ELEANOR ESPINOSA Physical Therapy 07/14 01:30:00 PM EST [facility] ([facility]) Outpatient Attender: Marla Hand/Roque/Ivan/Amanda read 07/22/2020 10:00:00 AM EST MED[facility] ([facility]) Outpatient Attender: ELEANOR ESPINOSA Physical Therapy 06/14 01:45:00 PM EST [facility] ([facility]) Outpatient Attender: PASQUALE VANN.RACHEL-SJP.RACHEL 12:00:00 AM EST - 07/01/2020 11:21:21 AM EST [facility] [place] [address] [facility] [address] 06/12/2020 12:00:00 AM EST eCW1 ([facility]) [place] [address] [facility] [address] 06/11/2020 12:00:00 AM EST [facility] [place] [address] [facility] [address] 06/09/2020 12:00:00 AM EST eCW1 ([facility]) Outpatient Attender: PASQUALE LEERACHEL-SJP.RACHEL 12:00:00 AM EST - 06/03/2020 04:22:22 PM EST [facility] Outpatient [address] [facility] [address] 06/02/2020 12:00:00 AM EST [facility]CW[facility]) OFFICE OUTPATIENT VISIT 15 MINUTES Attender: ELEANOR ESPINOSA Ph ysical Therapy 05/28/2020 12:30:00 PM EST [facility] ([facility]) Outpatient Attender: PASQUALE VANN.RACHEL-SJP.RACHEL 03/2020 12:00:00 AM EST - 05/22/2020 04:45:49 PM EST [facility] [place] [address] [facility] [address] 05/13/2020 12:00:00 AM EST eCW1 ([facility]) Outpatient Attender: Tata LEERACHEL-SJP.RACHEL 04/14 12:00:00 AM EST - 05/07/2020 03:53:02 PM EST [facility] OFFICE OUTPATIENT VISIT 15 MINUTES Attender: ELEANOR ESPINOSA Ph ysical Therapy 05/06/2020 02:45:00 PM EST [facility] ([facility]) [place] [address] [facility] [address] 05/01/2020 12:00:00 AM EST eCW1 ([facility]) Unknown [address] [facility] [address] 04/22/2020 12:00:00 AM EST [facility]CW[facility] ([facility]) Unknown [address] [facility] [place] [address] 04/21/2020 12:00:00 AM EST [facility]CW1 ([facility]) Unknown [address] [facility] [place] [address] 04/21/2020 12:00:00 AM EST [facility] Out[place] [address] [facility] [address] 04/10/2020 12:00:00 AM EDT eCW1 ([facility]) Unknown [address] [facility] [address] 04/09/2020 12:00:00 AM EDT eCW1 ([facility]) [place] [address] [facility] [address] 04/08/2020 12:00:00 AM EDT eCW1 ([facility]) Unknown [address] [facility] [address] 04/05/2020 12:00:00 AM EDT eCW1 ([facility]) Unknown [address] [facility] [address] 04/04/2020 12:00:00 AM EDT eCW1 ([facility]) Outpatient [address] [facility] [address] 04/03/2020 12:00:00 AM EDT eCW1 ([facility]) Out[place] [address] [facility] [address] 03/27/2020 12:00:00 AM EDT eCW1 ([facility]) OFFICE OUTPATIENT VISIT 15 MINUTES Attender: ELEANOR ESPINOSA Ph ysical Therapy 03/25/2020 11:00:00 AM EDT [facility] ([facility]) Immunizations Vaccine Date Status Description Data Source(s) COVID-19 VACC, MRNA(PFIZER)/PF 04/15/2021 12:00:00 AM EDT completed [facility] COVID-19 VACCINE Pfizer 04/15/2021 12:00:00 AM EDT completed [facility] Vaccine Series Complete: NOThis Data was Submitted to [facility] Via [employer]. INFLUENZA VIRUS VACCINE QUADRIVALENT 2019- (6 MOS [...] 30 MINUTES BEFORE MORNING MEAL SOLD: 04/15/2021 [facility] Lisinopril 30 MG Oral Tablet lisinopril (PRINIVIL,ZEST RIL) 30 MG tablet lisinopril (PRINIVIL,ZESTRIL) 30 MG tablet 04/15/2021 12:00:00 AM EDT 30 mg Oral active Take 1 tablet (30 mg total) by mouth daily [facility] Hydrochlorothiazide 25 MG Oral Tablet hy drochlorothiazide (HYDRODIURIL) 25 MG tablet hydrochlorothiazide (HYDRODIURIL) 25 MG tablet 12:00:00 AM EDT active [facility] 500 mg 03/27/2021 12:00:00 AM EDT tablet [...] tablet (20 mg total) by mouth daily [facility] Aspirin 81 MG Delayed Release Oral Table t SM Aspirin Adult Low Strength 81 MG EC tablet SM Aspirin Adult Low Strength 81 MG EC tablet 02/23/2021 12: 00:00 AM EDT 81 mg Oral active Take 1 tablet (8 1 mg total) by mouth daily [facility] 20 mg 02/23/2021 12:00:00 AM [...] ONE TABLET BY MOUTH EVERY D AY [facility] Rosuvastatin calcium 10 MG Oral [...] (10 mg total) by m outh nightly [facility] 8.6-50 mg 09/06/2020 12:00:00 AM EDT tablet 30 TAKE ONE TABLET BY MOUTH EVERY EVENING NEEDED TAKE ONE TABLET BY MOUTH EVERY EVENING NEEDED SOLD: 09/06/2020 [facility] Docusate Sodium 50 MG / sennosides, HALF-WAY 8.6 MG Oral Tablet [SENOKOT-S] Senokot S 8.6-50 MG Senokot S 8.6-50 MG 09/05/2020 12:00:00 AM EDT 1 .0 {tablet_in_the_evening_as_needed} active Senokot S 8.6-50 MG eCW1 ([facility]) Docusate Sodium 50 MG / sennosides, HALF-WAY 8.6 MG Oral Tablet [SENOKOT-S] Senokot S 8.6-50 MG Senokot S 8.6-50 MG 09/05/2020 12:00:00 AM EDT 1 .0 {tablet_in_the_evening_as_needed} active Senokot S 8.6-50 MG eCW1 ([facility]) Docusate Sodium 50 MG / sennosides, HALF-WAY 8.6 MG Oral Tablet [SENOKOT-S] Senokot S 8.6-50 MG Senokot S 8.6-50 MG 09/05/2020 12:00:00 AM EDT 1 .0 {tablet_in_the_evening_as_needed} active Senokot S 8.6-50 MG eCW1 ([facility]) Docusate Sodium 50 MG / sennosides, HALF-WAY 8.6 MG Oral Tablet [SENOKOT-S] Senokot S 8.6-50 MG [facility] S 8.6-50 MG 09/05/2020 12:00:00 AM EDT 1 .0 {tablet_in_the_evening_as_needed} active Senokot S 8.6-50 MG eCW1 ([facility]) Docusate Sodium 50 MG / sennosides, HALF-WAY 8.6 MG Oral Tablet [SENOKOT-S] Senokot S 8.6-50 MG Senokot S 8.6-50 MG 09/05/2020 12:00:00 AM EDT 1 .0 {tablet_in_the_evening_as_needed} active Senokot S 8.6-50 MG eCW1 ([facility]) Docusate Sodium 50 MG / sennosides, HALF-WAY 8.6 MG Oral Tablet [SENOKOT-S] Senokot S 8.6-50 MG Senokot S 8.6-50 MG 09/05/2020 12:00:00 AM EDT 1 .0 {tablet_in_the_evening_as_needed} active Senokot S 8.6-50 MG eCW1 ([facility]) Docusate Sodium 50 MG / sennosides, HALF-WAY 8.6 MG Oral Tablet [SENOKOT-S] Senokot S 8.6-50 MG Senokot S 8.6-50 MG 09/05/2020 12:00:00 AM EDT 1 .0 {tablet_in_the_evening_as_needed} active Senokot S 8.6-50 MG eCW1 ([facility]) Docusate Sodium 50 MG / sennosides, HALF-WAY 8.6 MG Oral Tablet [SENOKOT-S] Senokot S 8.6-50 MG Senokot S 8.6-50 MG 09/05/2020 12:00:00 AM EDT 1 .0 {tablet_in_the_evening_as_needed} active [facility] S 8.6-50 MG eCW1 ([facility]) Docusate Sodium 50 MG / sennosides, HALF-WAY 8.6 MG Oral Tablet [SENOKOT-S] Senokot S 8.6-50 MG Senokot S 8.6-50 MG 09/05/2020 12:00:00 AM EDT 1 .0 {tablet_in_the_evening_as_needed} active [facility] S 8.6-50 MG eCW1 ([facility]) Docusate Sodium 50 MG / sennosides, HALF-WAY 8.6 MG Oral Tablet [SENOKOT-S] Senokot S 8.6-50 MG Senokot S 8.6-50 MG 09/05/2020 12:00:00 AM EDT 1 .0 {tablet_in_the_evening_as_needed} active [facility]okot S 8.6-50 MG eCW1 ([facility]) Rosuvastatin calcium 10 MG Oral Tablet rosuvastatin (C RESTOR) 10 MG tablet rosuvastatin (CRESTOR) 10 MG tablet 09/01/2020 12:00:00 AM EDT 10 mg Oral aborted Take 1 tablet (10 mg total) by m outh nightly [facility] Rosuvastatin calcium 10 MG Oral Tablet ROSUVASTATIN CALCIUM 09/01/2020 12:00:00 AM EDT tablet 30 TAKE ONE TABLET BY MOUTH NIG HTLY TAKE ONE TABLET BY MOUTH NIGHTLY SOLD: 09/01/2020 [facility] Cephalexin 500 MG Oral Capsule Cephalexin 500 MG 08/11/2020 12:00:00 AM EST active Cephalexin 500 MG eC W1 ([facility]) Cephalexin 500 MG Oral Capsule Cephalexin 500 MG 08/11/2020 12:00:00 AM EST suspended Cephalexin 500 MG eC W1 ([facility]) Cephalexin 500 MG Oral Capsule Cephalexin 500 MG 08/11/2020 12:00:00 AM EST suspended Cephalexin 500 MG eC W1 ([facility]) Cephalexin 500 MG Oral Capsule Cephalexin 500 MG 08/11/2020 12:00:00 AM EST active Cephalexin 500 MG eC W1 ([facility]) Cephalexin 500 MG Oral Capsule Cephalexin 500 MG 08/11/2020 12:00:00 AM EST suspended Cephalexin 500 MG eC W1 ([facility]) Cephalexin 500 MG Oral Capsule Cephalexin 500 MG 08/11/2020 12:00:00 AM EST suspended Cephalexin 500 MG eC W1 ([facility]) Cephalexin 500 MG Oral Capsule Cephalexin 500 MG 08/11/2020 12:00:00 AM EST suspended Cephalexin 500 MG eC W1 ([facility]) Cephalexin 500 MG Oral Capsule Cephalexin 500 MG 08/11/2020 12:00:00 AM EST active Cephalexin 500 MG eC W1 ([facility]) Cephalexin 500 MG Oral Capsule Cephalexin 500 MG 08/11/2020 12:00:00 AM EST suspended Cephalexin 500 MG eC W1 ([facility]) Cephalexin 500 MG Oral Capsule Cephalexin 500 MG 08/11/2020 12:00:00 AM EST suspended Cephalexin 500 MG eC W1 ([facility]) Cephalexin 500 MG Oral Capsule CEPHALEXIN 08/11/2020 12:00:00 AM EST capsule 1 TAKE ONE CAPSULE BY MOUTH ONE HOUR PRIOR TO CYSTOSCOPY TAKE ONE CAPSULE BY MOUTH ONE HOUR PRIOR TO CYSTOSCOPY SOLD: 08/11/2020 [facility] Cephalexin 500 MG Oral Capsule Cephalexin 500 MG 08/11/2020 12:00:00 AM EST suspended Cephalexin 500 MG eC W1 ([facility]) Cephalexin 500 MG Oral Capsule Cephalexin 500 MG 08/11/2020 12:00:00 AM EST suspended Cephalexin 500 MG eC W1 ([facility]) Cephalexin 500 MG Oral Capsule Cephalexin 500 MG 08/11/2020 12:00:00 AM EST active Cephalexin 500 MG eC W1 ([facility]) Cephalexin 500 MG Oral Capsule Cephalexin 500 MG 08/11/2020 12:00:00 AM EST suspended Cephalexin 500 MG eC W1 ([facility]) Cephalexin 500 MG Oral Capsule Cephalexin 500 MG 08/11/2020 12:00:00 AM EST active Cephalexin 500 MG eC W1 ([facility]) 25 mg 08/08/2020 12:00:00 AM EST tablet [...] tablet (25 mg total) by mouth daily [facility] 81 mg 08/01/2020 12:00:00 AM [...] (10 mg total) by m outh nightly [facility] Rosuvastatin calcium 10 MG Oral [...] solution 06/17/2020 12:00:00 AM EST active [facility] Lidocaine 5 % Lidocaine 5 % 06/12/2020 12:00:00 AM EST suspended Lidocaine 5 % eCW1 ([facility]) Lidocaine 5 % Lidocaine 5 % 06/12/2020 12:00:00 AM EST suspended Lidocaine 5 % eCW1 ([facility]) Lidocaine 5 % Lidocaine 5 % 06/12/2020 12:00:00 AM EST suspended Lidocaine 5 % eCW1 ([facility]) Lidocaine 5 % Lidocaine 5 % 06/12/2020 12:00:00 AM EST suspended Lidocaine 5 % eCW1 ([facility]) Lidocaine 5 % Lidocaine 5 % 06/12/2020 12:00:00 AM EST suspended Lidocaine 5 % eCW1 ([facility]) Lidocaine 5 % Lidocaine 5 % 06/12/2020 12:00:00 AM EST suspended Lidocaine 5 % eCW1 ([facility]) Lidocaine 5 % Lidocaine 5 % 06/12/2020 12:00:00 AM EST active Lidocaine 5 % eCW1 ([facility]) Lidocaine 5 % Lidocaine 5 % 06/12/2020 12:00:00 AM EST suspended Lidocaine 5 % eCW1 ([facility]) Lidocaine 5 % Lidocaine 5 % 06/12/2020 12:00:00 AM EST suspended Lidocaine 5 % eCW1 ([facility]) Lidocaine 5 % Lidocaine 5 % 06/12/2020 12:00:00 AM EST suspended Lidocaine 5 % eCW1 ([facility]) Lidocaine 5 % Lidocaine 5 % 06/12/2020 12:00:00 AM EST suspended Lidocaine 5 % eCW1 ([facility]) Lidocaine 5 % Lidocaine 5 % 06/12/2020 12:00:00 AM EST suspended Lidocaine 5 % eCW1 ([facility]) Lidocaine 5 % Lidocaine 5 % 06/12/2020 12:00:00 AM EST suspended Lidocaine 5 % eCW1 ([facility]) Lidocaine 5 % Lidocaine 5 % 06/12/2020 12:00:00 AM EST suspended Lidocaine 5 % eCW1 ([facility]) Lidocaine 5 % Lidocaine 5 % 06/12/2020 12:00:00 AM EST suspended Lidocaine 5 % eCW1 ([facility]) Lidocaine 5 % Lidocaine 5 % 06/12/2020 12:00:00 AM EST suspended Lidocaine 5 % eCW1 ([facility]) Lidocaine 5 % Lidocaine 5 % 06/12/2020 12:00:00 AM EST suspended Lidocaine 5 % eCW1 ([facility]) Lidocaine 5 % Lidocaine 5 % 06/12/2020 12:00:00 AM EST active Lidocaine 5 % eCW1 ([facility]) Lidocaine 5 % Lidocaine 5 % 06/12/2020 12:00:00 AM EST suspended Lidocaine 5 % eCW1 ([facility]) Lidocaine 5 % Lidocaine 5 % 06/12/2020 12:00:00 AM EST active Lidocaine 5 % eCW1 ([facility]) Lidocaine 5 % Lidocaine 5 % 06/12/2020 12:00:00 AM EST suspended Lidocaine 5 % eCW1 ([facility]) Lidocaine 5 % Lidocaine 5 % 06/12/2020 12:00:00 AM EST suspended Lidocaine 5 % eCW1 ([facility]) Lidocaine 5 % Lidocaine 5 % 06/12/2020 12:00:00 AM EST active Lidocaine 5 % eCW1 ([facility]) Rosuvastatin calcium 10 MG Oral Tablet rosuvastatin (C RESTOR) 10 MG tablet rosuvastatin (CRESTOR) 10 MG tablet 06/03/2020 12:00:00 AM EST 10 mg Oral aborted Take 1 tablet (10 mg total) by m outh nightly [facility] 10 mg 06/03/2020 12:00:00 AM [...] tablet (40 mg total) by mouth daily [facility] 24 HR Diltiazem Hydrochloride 180 MG Ext ended Release Oral Capsule diltiazem (CARDIZEM CD) 180 MG 24 hr capsule diltiazem (CARDIZEM CD) 180 MG 24 hr capsule 05/22/2020 12:00:00 AM EST 180 mg Oral aborted Take 1 capsule (180 mg total) by mouth daily [facility] Lisinopril 30 MG Oral Tablet Lisinopril 30 MG 05/13/2020 12:00:00 A M EST 1.0 {tablet} suspended Lisinopril 30 MG eCW1 ([facility]) Lisinopril 30 MG Oral Tablet Lisinopril 30 MG 05/13/2020 12:00:00 A M EST 1.0 {tablet} suspended Lisinopril 30 MG eCW1 ([facility]) Lisinopril 30 MG Oral Tablet Lisinopril 30 MG 05/13/2020 12:00:00 A M EST 1.0 {tablet} active Lisinopril 30 MG eCW1 ( [facility]) Lisinopril 30 MG Oral Tablet Lisinopril 30 MG 05/13/2020 12:00:00 A M EST 1.0 {tablet} suspended Lisinopril 30 MG eCW1 ([facility]) Lisinopril 30 MG Oral Tablet Lisinopril 30 MG 05/13/2020 12:00:00 A M EST 1.0 {tablet} suspended Lisinopril 30 MG eCW1 ([facility]) Lisinopril 30 MG Oral Tablet Lisinopril 30 MG 05/13/2020 12:00:00 A M EST 1.0 {tablet} suspended Lisinopril 30 MG eCW1 ([facility]) Lisinopril 30 MG Oral Tablet Lisinopril 30 MG 05/13/2020 12:00:00 A M EST 1.0 {tablet} active Lisinopril 30 MG eCW1 ( [facility]) Lisinopril 30 MG Oral Tablet Lisinopril 30 MG 05/13/2020 12:00:00 A M EST 1.0 {tablet} suspended Lisinopril 30 MG eCW1 ([facility]) Lisinopril 30 MG Oral Tablet Lisinopril 30 MG 05/13/2020 12:00:00 A M EST 1.0 {tablet} active Lisinopril 30 MG eCW1 ( [facility]) Lisinopril 30 MG Oral Tablet Lisinopril 30 MG 05/13/2020 12:00:00 A M EST 1.0 {tablet} suspended Lisinopril 30 MG eCW1 ([facility]) Lisinopril 30 MG Oral Tablet Lisinopril 30 MG 05/13/2020 12:00:00 A M EST 1.0 {tablet} active Lisinopril 30 MG eCW1 ( [facility]) Lisinopril 30 MG Oral Tablet Lisinopril 30 MG 05/13/2020 12:00:00 A M EST 1.0 {tablet} suspended Lisinopril 30 MG eCW1 ([facility]) Lisinopril 30 MG Oral Tablet Lisinopril 30 MG 05/13/2020 12:00:00 A M EST 1.0 {tablet} suspended Lisinopril 30 MG eCW1 ([facility]) Lisinopril 30 MG Oral Tablet Lisinopril 30 MG 05/13/2020 12:00:00 A M EST 1.0 {tablet} suspended Lisinopril 30 MG eCW1 ([facility]) Lisinopril 30 MG Oral Tablet Lisinopril 30 MG 05/13/2020 12:00:00 A M EST 1.0 {tablet} suspended Lisinopril 30 MG eCW1 ([facility]) Lisinopril 30 MG Oral Tablet Lisinopril 30 MG 05/13/2020 12:00:00 A M EST 1.0 {tablet} active Lisinopril 30 MG eCW1 ( [facility]) Lisinopril 30 MG Oral Tablet Lisinopril 30 MG 05/13/2020 12:00:00 A M EST 1.0 {tablet} suspended Lisinopril 30 MG eCW1 ([facility]) Lisinopril 30 MG Oral Tablet Lisinopril 30 MG 05/13/2020 12:00:00 A M EST 1.0 {tablet} suspended Lisinopril 30 MG eCW1 ([facility]) Lisinopril 30 MG Oral Tablet Lisinopril 30 MG 05/13/2020 12:00:00 A M EST 1.0 {tablet} suspended Lisinopril 30 MG eCW1 ([facility]) Lisinopril 30 MG Oral Tablet Lisinopril 30 MG 05/13/2020 12:00:00 A M EST 1.0 {tablet} suspended Lisinopril 30 MG eCW1 ([facility]) Lisinopril 30 MG Oral Tablet Lisinopril 30 MG 05/13/2020 12:00:00 A M EST 1.0 {tablet} suspended Lisinopril 30 MG eCW1 ([facility]) Lisinopril 30 MG Oral Tablet Lisinopril 30 MG 05/13/2020 12:00:00 A M EST 1.0 {tablet} suspended Lisinopril 30 MG eCW1 ([facility]) Lisinopril 30 MG Oral Tablet Lisinopril 30 MG 05/13/2020 12:00:00 A M EST 1.0 {tablet} suspended Lisinopril 30 MG eCW1 ([facility]) Lisinopril 30 MG Oral Tablet Lisinopril 30 MG 05/13/2020 12:00:00 A M EST 1.0 {tablet} suspended Lisinopril 30 MG eCW1 ([facility]) 24 HR Diltiazem Hydrochloride 180 MG Extended Release Oral Capsule DILTIAZEM HCL 05/09/2020 12:00:00 AM EST capsule,extended release 24hr 30 TAKE ONE CAPSULE BY MOUTH EVERY DAY TAKE ONE CAPSULE BY MOUTH EVERY DAY SOLD: 05/12/2020 [facility] 24 HR Diltiazem Hydrochloride 180 MG Ext ended Release Oral Capsule diltiazem (CARDIZEM CD) 180 MG 24 hr capsule diltiazem (CARDIZEM CD) 180 MG 24 hr capsule 05/07/2020 12:00:00 AM EST 180 mg Oral aborted Take 1 capsule (180 mg total) by mouth daily [facility] 20 mg 05/02/2020 12:00:00 AM EST tablet 30 TAKE ONE TABLET BY MOUTH EVERY DAY TAKE ONE TABLET BY MOUTH EVERY DAY SOLD: 05/06/2020 [facility] atorvastatin 40 MG Oral Tablet ATORVASTATIN CALCIUM 05/02/2020 1 2:00:00 AM EST tablet 30 TAKE ONE TABLET BY MOUTH EVERY D AY TAKE ONE TABLET BY MOUTH EVERY DAY SOLD: 05/06/2020 [facility] atorvastatin 40 MG Oral Tablet Atorvastatin Calcium 40 MG Atorvastatin Calcium 40 MG 05/01/2020 12:00:00 AM EST 1.0 {tablet} activ e Atorvastatin Calcium 40 MG eCW1 ([facility]) atorvastatin 40 MG Oral Tablet Atorvastatin Calcium 40 MG Atorvastatin Calcium 40 MG 05/01/2020 12:00:00 AM EST 1.0 {tablet} activ e Atorvastatin Calcium 40 MG eCW1 ([facility]) atorvastatin 40 MG Oral Tablet Atorvastatin Calcium 40 MG Atorvastatin Calcium 40 MG 05/01/2020 12:00:00 AM EST 1.0 {tablet} activ e Atorvastatin Calcium 40 MG eCW1 ([facility]) atorvastatin 40 MG Oral Tablet Atorvastatin Calcium 40 MG Atorvastatin Calcium 40 MG 05/01/2020 12:00:00 AM EST 1.0 {tablet} activ e Atorvastatin Calcium 40 MG eCW1 ([facility]) atorvastatin 40 MG Oral Tablet Atorvastatin Calcium 40 MG Atorvastatin Calcium 40 MG 05/01/2020 12:00:00 AM EST 1.0 {tablet} activ e Atorvastatin Calcium 40 MG eCW1 ([facility]) atorvastatin 40 MG Oral Tablet Atorvastatin Calcium 40 MG Atorvastatin Calcium 40 MG 05/01/2020 12:00:00 AM EST 1.0 {tablet} activ e Atorvastatin Calcium 40 MG eCW1 ([facility]) atorvastatin 40 MG Oral Tablet Atorvastatin Calcium 40 MG Atorvastatin Calcium 40 MG 05/01/2020 12:00:00 AM EST 1.0 {tablet} activ e Atorvastatin Calcium 40 MG eCW1 ([facility]) atorvastatin 40 MG Oral Tablet Atorvastatin Calcium 40 MG Atorvastatin Calcium 40 MG 05/01/2020 12:00:00 AM EST 1.0 {tablet} activ e Atorvastatin Calcium 40 MG eCW1 ([facility]) atorvastatin 40 MG Oral Tablet Atorvastatin Calcium 40 MG Atorvastatin Calcium 40 MG 05/01/2020 12:00:00 AM EST 1.0 {tablet} activ e Atorvastatin Calcium 40 MG eCW1 ([facility]) atorvastatin 40 MG Oral Tablet Atorvastatin Calcium 40 MG Atorvastatin Calcium 40 MG 05/01/2020 12:00:00 AM EST 1.0 {tablet} activ e Atorvastatin Calcium 40 MG eCW1 ([facility]) atorvastatin 40 MG Oral Tablet Atorvastatin Calcium 40 MG Atorvastatin Calcium 40 MG 05/01/2020 12:00:00 AM EST 1.0 {tablet} activ e Atorvastatin Calcium 40 MG eCW1 ([facility]) atorvastatin 40 MG Oral Tablet Atorvastatin Calcium 40 MG Atorvastatin Calcium 40 MG 05/01/2020 12:00:00 AM EST 1.0 {tablet} activ e Atorvastatin Calcium 40 MG eCW1 ([facility]) Lisinopril 20 MG Oral Tablet Lisinopril 20 MG 05/01/2020 12:00:00 A M EST 1.0 {tablet} active Lisinopril 20 MG eCW1 ( [facility]) atorvastatin 40 MG Oral Tablet Atorvastatin Calcium 40 MG Atorvastatin Calcium 40 MG 05/01/2020 12:00:00 AM EST 1.0 {tablet} suspe nded Atorvastatin Calcium 40 MG eCW1 ([facility]) atorvastatin 40 MG Oral Tablet Atorvastatin Calcium 40 MG Atorvastatin Calcium 40 MG 05/01/2020 12:00:00 AM EST 1.0 {tablet} activ e Atorvastatin Calcium 40 MG eCW1 ([facility]) atorvastatin 40 MG Oral Tablet Atorvastatin Calcium 40 MG Atorvastatin Calcium 40 MG 05/01/2020 12:00:00 AM EST 1.0 {tablet} activ e Atorvastatin Calcium 40 MG eCW1 ([facility]) atorvastatin 40 MG Oral Tablet Atorvastatin Calcium 40 MG Atorvastatin Calcium 40 MG 05/01/2020 12:00:00 AM EST 1.0 {tablet} activ e Atorvastatin Calcium 40 MG eCW1 ([facility]) atorvastatin 40 MG Oral Tablet Atorvastatin Calcium 40 MG Atorvastatin Calcium 40 MG 05/01/2020 12:00:00 AM EST 1.0 {tablet} activ e Atorvastatin Calcium 40 MG eCW1 ([facility]) atorvastatin 40 MG Oral Tablet Atorvastatin Calcium 40 MG Atorvastatin Calcium 40 MG 05/01/2020 12:00:00 AM EST 1.0 {tablet} suspe nded Atorvastatin Calcium 40 MG eCW1 ([facility]) atorvastatin 40 MG Oral Tablet Atorvastatin Calcium 40 MG Atorvastatin Calcium 40 MG 05/01/2020 12:00:00 AM EST 1.0 {tablet} activ e Atorvastatin Calcium 40 MG eCW1 ([facility]) atorvastatin 40 MG Oral Tablet Atorvastatin Calcium 40 MG Atorvastatin Calcium 40 MG 05/01/2020 12:00:00 AM EST 1.0 {tablet} activ e Atorvastatin Calcium 40 MG eCW1 ([facility]) atorvastatin 40 MG Oral Tablet Atorvastatin Calcium 40 MG Atorvastatin Calcium 40 MG 05/01/2020 12:00:00 AM EST 1.0 {tablet} activ e Atorvastatin Calcium 40 MG eCW1 ([facility]) atorvastatin 40 MG Oral Tablet Atorvastatin Calcium 40 MG Atorvastatin Calcium 40 MG 05/01/2020 12:00:00 AM EST 1.0 {tablet} activ e Atorvastatin Calcium 40 MG eCW1 ([facility]) Lisinopril 20 MG Oral Tablet Lisinopril 20 MG 05/01/2020 12:00:00 A M EST 1.0 {tablet} active Lisinopril 20 MG eCW1 ( [facility]) atorvastatin 40 MG Oral Tablet Atorvastatin Calcium 40 MG Atorvastatin Calcium 40 MG 05/01/2020 12:00:00 AM EST 1.0 {tablet} activ e Atorvastatin Calcium 40 MG eCW1 ([facility]) atorvastatin 40 MG Oral Tablet Atorvastatin Calcium 40 MG Atorvastatin Calcium 40 MG 05/01/2020 12:00:00 AM EST 1.0 {tablet} activ e Atorvastatin Calcium 40 MG eCW1 ([facility]) atorvastatin 40 MG Oral Tablet Atorvastatin Calcium 40 MG Atorvastatin Calcium 40 MG 05/01/2020 12:00:00 AM EST 1.0 {tablet} activ e Atorvastatin Calcium 40 MG eCW1 ([facility]) atorvastatin 40 MG Oral Tablet Atorvastatin Calcium 40 MG Atorvastatin Calcium 40 MG 05/01/2020 12:00:00 AM EST 1.0 {tablet} activ e Atorvastatin Calcium 40 MG eCW1 ([facility]) 20 mg 04/23/2020 12:00:00 AM EST tablet [...] aborted Take 10 mg by mouth daily [facility] 10 mg 04/22/2020 12:00:00 AM EST tablet 30 TAKE ONE TABLET BY MOUTH EVERY DAY TAKE ONE TABLET BY MOUTH EVERY DAY SOLD: 04/23/2020 [facility] Isosorbide Dinitrate 30 MG Oral Tablet Isosorbide Dinitrate 30 MG 04/21/2020 12:00:00 AM EST 1.0 {tablet} active Is osorbide Dinitrate 30 MG eCW1 ([facility]) Isosorbide Dinitrate 30 MG Oral Tablet Isosorbide Dinitrate 30 MG 04/21/2020 12:00:00 AM EST 1.0 {tablet} active Is osorbide Dinitrate 30 MG eCW1 ([facility]) Lisinopril 10 MG Oral Tablet Lisinopril 10 MG 04/21/2020 12:00:00 A M EST 1.0 {tablet} active Lisinopril 10 MG eCW1 ( [facility]) Isosorbide Dinitrate 30 MG Oral Tablet Isosorbide Dinitrate 30 MG 04/21/2020 12:00:00 AM EST 1.0 {tablet} active Is osorbide Dinitrate 30 MG eCW1 ([facility]) Isosorbide Dinitrate 30 MG Oral Tablet Isosorbide Dinitrate 30 MG 04/21/2020 12:00:00 AM EST 1.0 {tablet} suspended Isosorbide Dinitrate 30 MG eCW1 ([facility]) Isosorbide Dinitrate 30 MG Oral Tablet Isosorbide Dinitrate 30 MG 04/21/2020 12:00:00 AM EST 1.0 {tablet} active Is osorbide Dinitrate 30 MG eCW1 ([facility]) Isosorbide Dinitrate 30 MG Oral Tablet Isosorbide Dinitrate 30 MG 04/21/2020 12:00:00 AM EST 1.0 {tablet} active Is osorbide Dinitrate 30 MG eCW1 ([facility]) Isosorbide Dinitrate 30 MG Oral Tablet Isosorbide Dinitrate 30 MG 04/21/2020 12:00:00 AM EST 1.0 {tablet} active Is osorbide Dinitrate 30 MG eCW1 ([facility]) Isosorbide Dinitrate 30 MG Oral Tablet Isosorbide Dinitrate 30 MG 04/21/2020 12:00:00 AM EST 1.0 {tablet} active Is osorbide Dinitrate 30 MG eCW1 ([facility]) Isosorbide Dinitrate 30 MG Oral Tablet Isosorbide Dinitrate 30 MG 04/21/2020 12:00:00 AM EST 1.0 {tablet} active Is osorbide Dinitrate 30 MG eCW1 ([facility]) Isosorbide Dinitrate 30 MG Oral Tablet Isosorbide Dinitrate 30 MG 04/21/2020 12:00:00 AM EST 1.0 {tablet} active Is osorbide Dinitrate 30 MG eCW1 ([facility]) Isosorbide Dinitrate 30 MG Oral Tablet Isosorbide Dinitrate 30 MG 04/21/2020 12:00:00 AM EST 1.0 {tablet} active Is osorbide Dinitrate 30 MG eCW1 ([facility]) Isosorbide Dinitrate 30 MG Oral Tablet Isosorbide Dinitrate 30 MG 04/21/2020 12:00:00 AM EST 1.0 {tablet} active Is osorbide Dinitrate 30 MG eCW1 ([facility]) Isosorbide Dinitrate 30 MG Oral Tablet Isosorbide Dinitrate 30 MG 04/21/2020 12:00:00 AM EST 1.0 {tablet} active Is osorbide Dinitrate 30 MG eCW1 ([facility]) Isosorbide Dinitrate 30 MG Oral Tablet Isosorbide Dinitrate 30 MG 04/21/2020 12:00:00 AM EST 1.0 {tablet} active Is osorbide Dinitrate 30 MG eCW1 ([facility]) Isosorbide Dinitrate 30 MG Oral Tablet Isosorbide Dinitrate 30 MG 04/21/2020 12:00:00 AM EST 1.0 {tablet} active Is osorbide Dinitrate 30 MG eCW1 ([facility]) Isosorbide Dinitrate 30 MG Oral Tablet Isosorbide Dinitrate 30 MG 04/21/2020 12:00:00 AM EST 1.0 {tablet} suspended Isosorbide Dinitrate 30 MG eCW1 ([facility]) Isosorbide Dinitrate 30 MG Oral Tablet Isosorbide Dinitrate 30 MG 04/21/2020 12:00:00 AM EST 1.0 {tablet} active Is osorbide Dinitrate 30 MG eCW1 ([facility]) Isosorbide Dinitrate 30 MG Oral Tablet Isosorbide Dinitrate 30 MG 04/21/2020 12:00:00 AM EST 1.0 {tablet} active Is osorbide Dinitrate 30 MG eCW1 ([facility]) Isosorbide Dinitrate 30 MG Oral Tablet Isosorbide Dinitrate 30 MG 04/21/2020 12:00:00 AM EST 1.0 {tablet} active Is osorbide Dinitrate 30 MG eCW1 ([facility]) Isosorbide Dinitrate 30 MG Oral Tablet Isosorbide Dinitrate 30 MG 04/21/2020 12:00:00 AM EST 1.0 {tablet} active Is osorbide Dinitrate 30 MG eCW1 ([facility]) Isosorbide Dinitrate 30 MG Oral Tablet Isosorbide Dinitrate 30 MG 04/21/2020 12:00:00 AM EST 1.0 {tablet} active Is osorbide Dinitrate 30 MG eCW1 ([facility]) Isosorbide Dinitrate 30 MG Oral Tablet Isosorbide Dinitrate 30 MG 04/21/2020 12:00:00 AM EST 1.0 {tablet} active Is osorbide Dinitrate 30 MG eCW1 ([facility]) Isosorbide Dinitrate 30 MG Oral Tablet Isosorbide Dinitrate 30 MG 04/21/2020 12:00:00 AM EST 1.0 {tablet} active Is osorbide Dinitrate 30 MG eCW1 ([facility]) Isosorbide Dinitrate 30 MG Oral Tablet Isosorbide Dinitrate 30 MG 04/21/2020 12:00:00 AM EST 1.0 {tablet} active Is osorbide Dinitrate 30 MG eCW1 ([facility]) Isosorbide Dinitrate 30 MG Oral Tablet Isosorbide Dinitrate 30 MG 04/21/2020 12:00:00 AM EST 1.0 {tablet} active Is osorbide Dinitrate 30 MG eCW1 ([facility]) Isosorbide Dinitrate 30 MG Oral Tablet Isosorbide Dinitrate 30 MG 04/21/2020 12:00:00 AM EST 1.0 {tablet} active Is osorbide Dinitrate 30 MG eCW1 ([facility]) Isosorbide Dinitrate 30 MG Oral Tablet Isosorbide Dinitrate 30 MG 04/21/2020 12:00:00 AM EST 1.0 {tablet} active Is osorbide Dinitrate 30 MG eCW1 ([facility]) Isosorbide Dinitrate 30 MG Oral Tablet Isosorbide Dinitrate 30 MG 04/21/2020 12:00:00 AM EST 1.0 {tablet} active Is osorbide Dinitrate 30 MG eCW1 ([facility]) Lisinopril 10 MG Oral Tablet Lisinopril 10 MG 04/21/2020 12:00:00 A M EST 1.0 {tablet} active Lisinopril 10 MG eCW1 ( [facility]) 30 mg 04/09/2020 12:00:00 AM EDT tablet 60 TAKE ONE TABLET BY MOUTH TWICE A DAY TAKE ONE TABLET BY MOUTH TWICE A DAY SOLD: 04/11/2020 [facility] Nitroglycerin 0.3 MG Sublingual Tablet NITROGLYCERIN [...] mg Oral aborted Take 25 mg by [facility] Aspirin 81 MG Delayed Release Oral Table t SM ASPIRIN ADULT LOW STRENGTH 81 MG EC tablet SM ASPIRIN ADULT LOW STRENGTH 81 MG EC tablet 04/09/2020 12: 00:00 AM EDT 81 mg Oral aborted Take 81 mg by mo uth daily [facility] Nitroglycerin 0.3 MG Sublingual Tablet n itroglycerin (NITROSTAT) 0.3 MG SL tablet nitroglycerin (NITROSTAT) 0.3 MG SL tablet 04/09/2020 12:00:00 A M EDT aborted TAKE ONE T ABLET UNDER THE TONGUE WHEN CHEST PAIN DOES NOT IMPROVE IN 3 MINUTES AND CAN USE SECOND DOSE IF PAIN DOES NOT RESOLVE WITH ONE [facility] 25 mg 04/09/2020 12:00:00 AM [...] TABLET BY MOUTH EVERY DAY SOLD: 04/11/2020 [facility] Nitroglycerin 0.3 MG Sublingual Tablet Nitroglycerin 0.3 MG 04/08/2020 12:00:00 AM EDT active Nitroglycerin 0.3 MG eCW1 ([facility]) Nitroglycerin 0.3 MG Sublingual Tablet Nitroglycerin 0.3 MG 04/08/2020 12:00:00 AM EDT active Nitroglycerin 0.3 MG eCW1 ([facility]) Nitroglycerin 0.3 MG Sublingual Tablet Nitroglycerin 0.3 MG 04/08/2020 12:00:00 AM EDT active Nitroglycerin 0.3 MG eCW1 ([facility]) Nitroglycerin 0.3 MG Sublingual Tablet Nitroglycerin 0.3 MG 04/08/2020 12:00:00 AM EDT active Nitroglycerin 0.3 MG eCW1 ([facility]) Nitroglycerin 0.3 MG Sublingual Tablet Nitroglycerin 0.3 MG 04/08/2020 12:00:00 AM EDT active Nitroglycerin 0.3 MG eCW1 ([facility]) Nitroglycerin 0.3 MG Sublingual Tablet Nitroglycerin 0.3 MG 04/08/2020 12:00:00 AM EDT active Nitroglycerin 0.3 MG eCW1 ([facility]) Nitroglycerin 0.3 MG Sublingual Tablet Nitroglycerin 0.3 MG 04/08/2020 12:00:00 AM EDT active Nitroglycerin 0.3 MG eCW1 ([facility]) Nitroglycerin 0.3 MG Sublingual Tablet Nitroglycerin 0.3 MG 04/08/2020 12:00:00 AM EDT active Nitroglycerin 0.3 MG eCW1 ([facility]) atorvastatin 80 MG Oral Tablet ATORVASTATIN CALCIUM 04/08/2020 1 2:00:00 AM EDT tablet 30 TAKE ONE TABLET BY MOUTH EVERY D AY TAKE ONE TABLET BY MOUTH EVERY DAY SOLD: 04/11/2020 [facility] Nitroglycerin 0.3 MG Sublingual Tablet Nitroglycerin 0.3 MG 04/08/2020 12:00:00 AM EDT active Nitroglycerin 0.3 MG eCW1 ([facility]) Nitroglycerin 0.3 MG Sublingual Tablet Nitroglycerin 0.3 MG 04/08/2020 12:00:00 AM EDT active Nitroglycerin 0.3 MG eCW1 ([facility]) Nitroglycerin 0.3 MG Sublingual Tablet Nitroglycerin 0.3 MG 04/08/2020 12:00:00 AM EDT active Nitroglycerin 0.3 MG eCW1 ([facility]) Nitroglycerin 0.3 MG Sublingual Tablet Nitroglycerin 0.3 MG 04/08/2020 12:00:00 AM EDT active Nitroglycerin 0.3 MG eCW1 ([facility]) Nitroglycerin 0.3 MG Sublingual Tablet Nitroglycerin 0.3 MG 04/08/2020 12:00:00 AM EDT active Nitroglycerin 0.3 MG eCW1 ([facility]) Nitroglycerin 0.3 MG Sublingual Tablet Nitroglycerin 0.3 MG 04/08/2020 12:00:00 AM EDT active Nitroglycerin 0.3 MG eCW1 ([facility]) Nitroglycerin 0.3 MG Sublingual Tablet Nitroglycerin 0.3 MG 04/08/2020 12:00:00 AM EDT active Nitroglycerin 0.3 MG eCW1 ([facility]) atorvastatin 40 MG Oral Tablet atorvastatin (LIPITOR) 40 MG tablet atorvastatin (LIPITOR) 40 MG tablet 04/08/2020 12:00:00 AM EDT 40 mg Oral aborted Take 40 mg by mouth daily [facility] Nitroglycerin 0.3 MG Sublingual Tablet Nitroglycerin 0.3 MG 04/08/2020 12:00:00 AM EDT active Nitroglycerin 0.3 MG eCW1 ([facility]) Nitroglycerin 0.3 MG Sublingual Tablet Nitroglycerin 0.3 MG 04/08/2020 12:00:00 AM EDT active Nitroglycerin 0.3 MG eCW1 ([facility]) Nitroglycerin 0.3 MG Sublingual Tablet Nitroglycerin 0.3 MG 04/08/2020 12:00:00 AM EDT active Nitroglycerin 0.3 MG eCW1 ([facility]) Nitroglycerin 0.3 MG Sublingual Tablet Nitroglycerin 0.3 MG 04/08/2020 12:00:00 AM EDT active Nitroglycerin 0.3 MG eCW1 ([facility]) Nitroglycerin 0.3 MG Sublingual Tablet Nitroglycerin 0.3 MG 04/08/2020 12:00:00 AM EDT active Nitroglycerin 0.3 MG eCW1 ([facility]) Nitroglycerin 0.3 MG Sublingual Tablet Nitroglycerin 0.3 MG 04/08/2020 12:00:00 AM EDT active Nitroglycerin 0.3 MG eCW1 ([facility]) Nitroglycerin 0.3 MG Sublingual Tablet Nitroglycerin 0.3 MG 04/08/2020 12:00:00 AM EDT active Nitroglycerin 0.3 MG eCW1 ([facility]) Nitroglycerin 0.3 MG Sublingual Tablet Nitroglycerin 0.3 MG 04/08/2020 12:00:00 AM EDT active Nitroglycerin 0.3 MG eCW1 ([facility]) Nitroglycerin 0.3 MG Sublingual Tablet Nitroglycerin 0.3 MG 04/08/2020 12:00:00 AM EDT active Nitroglycerin 0.3 MG eCW1 ([facility]) Nitroglycerin 0.3 MG Sublingual Tablet Nitroglycerin 0.3 MG 04/08/2020 12:00:00 AM EDT active Nitroglycerin 0.3 MG eCW1 ([facility]) Nitroglycerin 0.3 MG Sublingual Tablet Nitroglycerin 0.3 MG 04/08/2020 12:00:00 AM EDT active Nitroglycerin 0.3 MG eCW1 ([facility]) Nitroglycerin 0.3 MG Sublingual Tablet Nitroglycerin 0.3 MG 04/08/2020 12:00:00 AM EDT active Nitroglycerin 0.3 MG eCW1 ([facility]) Nitroglycerin 0.3 MG Sublingual Tablet Nitroglycerin 0.3 MG 04/08/2020 12:00:00 AM EDT active Nitroglycerin 0.3 MG eCW1 ([facility]) Nitroglycerin 0.3 MG Sublingual Tablet Nitroglycerin 0.3 MG 04/08/2020 12:00:00 AM EDT active Nitroglycerin 0.3 MG eCW1 ([facility]) Nitroglycerin 0.3 MG Sublingual Tablet Nitroglycerin 0.3 MG 04/08/2020 12:00:00 AM EDT active Nitroglycerin 0.3 MG eCW1 ([facility]) Nitroglycerin 0.3 MG Sublingual Tablet Nitroglycerin 0.3 MG 04/08/2020 12:00:00 AM EDT active Nitroglycerin 0.3 MG eCW1 ([facility]) Clonidine Hydrochloride 0.1 MG Oral Tablet Clonidine H Cl 0.1 MG Clonidine HCl 0.1 MG 04/03/2020 12:00:00 AM EDT 1.0 {tablet} suspe nded Clonidine HCl 0.1 MG eCW1 ([facility]) Clonidine Hydrochloride 0.1 MG Oral Tablet Clonidine H Cl 0.1 MG Clonidine HCl 0.1 MG 04/03/2020 12:00:00 AM EDT 1.0 {tablet} suspe nded Clonidine HCl 0.1 MG eCW1 ([facility]) Hydrochlorothiazide 25 MG Oral Tablet Hydrochlorothiazide 25 MG 04/03/2020 12:00:00 AM EDT 1.0 {tablet_in_the_morning} acti ve Hydrochlorothiazide 25 MG eCW1 ([facility]) Hydrochlorothiazide 25 MG Oral Tablet Hydrochlorothiazide 25 MG 04/03/2020 12:00:00 AM EDT 1.0 {tablet_in_the_morning} acti ve Hydrochlorothiazide 25 MG eCW1 ([facility]) Hydrochlorothiazide 25 MG Oral Tablet Hydrochlorothiazide 25 MG 04/03/2020 12:00:00 AM EDT 1.0 {tablet_in_the_morning} acti ve Hydrochlorothiazide 25 MG eCW1 ([facility]) atorvastatin 80 MG Oral Tablet Atorvastatin Calcium 80 MG Atorvastatin Calcium 80 MG 04/03/2020 12:00:00 AM EDT 1.0 {tablet} activ e Atorvastatin Calcium 80 MG eCW1 ([facility]) Hydrochlorothiazide 25 MG Oral Tablet Hydrochlorothiazide 25 MG 04/03/2020 12:00:00 AM EDT 1.0 {tablet_in_the_morning} acti ve Hydrochlorothiazide 25 MG eCW1 ([facility]) Hydrochlorothiazide 25 MG Oral Tablet Hydrochlorothiazide 25 MG 04/03/2020 12:00:00 AM EDT 1.0 {tablet_in_the_morning} acti ve Hydrochlorothiazide 25 MG eCW1 ([facility]) Isosorbide Dinitrate 30 MG Oral Tablet Isosorbide Dinitrate 30 MG 04/03/2020 12:00:00 AM EDT 1.0 {tablet} active Is osorbide Dinitrate 30 MG eCW1 ([facility]) Hydrochlorothiazide 25 MG Oral Tablet Hydrochlorothiazide 25 MG 04/03/2020 12:00:00 AM EDT 1.0 {tablet_in_the_morning} acti ve Hydrochlorothiazide 25 MG eCW1 ([facility]) Hydrochlorothiazide 25 MG Oral Tablet Hydrochlorothiazide 25 MG 04/03/2020 12:00:00 AM EDT 1.0 {tablet_in_the_morning} acti ve Hydrochlorothiazide 25 MG eCW1 ([facility]) Aspirin 81 MG Delayed Release Oral Tablet Aspirin 81 81 MG A spirin 81 81 MG 04/03/2020 12:00:00 AM EDT 1.0 {tablet} active Aspirin 81 81 MG eCW1 ([facility]) Hydrochlorothiazide 25 MG Oral Tablet Hydrochlorothiazide 25 MG 04/03/2020 12:00:00 AM EDT 1.0 {tablet_in_the_morning} acti ve Hydrochlorothiazide 25 MG eCW1 ([facility]) Aspirin 81 MG Delayed Release Oral Tablet Aspirin 81 81 MG A spirin 81 81 MG 04/03/2020 12:00:00 AM EDT 1.0 {tablet} active Aspirin 81 81 MG eCW1 ([facility]) Hydrochlorothiazide 25 MG Oral Tablet hydroCHLOROthiaz brennan 25 MG hydroCHLOROthiazide 25 MG 04/03/2020 12:00:00 AM EDT 1.0 {tablet_in_the_morning} suspended hydroC HLOROthiazide 25 MG eCW1 ([facility]) Aspirin 81 MG Delayed Release Oral Tablet Aspirin 81 81 MG A spirin 81 81 MG 04/03/2020 12:00:00 AM EDT 1.0 {tablet} active Aspirin 81 81 MG eCW1 ([facility]) Hydrochlorothiazide 25 MG Oral Tablet hydroCHLOROthiaz brennan 25 MG hydroCHLOROthiazide 25 MG 04/03/2020 12:00:00 AM EDT 1.0 {tablet_in_the_morning} active hydroCHL OROthiazide 25 MG eCW1 ([facility]) Hydrochlorothiazide 25 MG Oral Tablet hydroCHLOROthiaz brennan 25 MG hydroCHLOROthiazide 25 MG 04/03/2020 12:00:00 AM EDT 1.0 {tablet_in_the_morning} active hydroCHL OROthiazide 25 MG eCW1 ([facility]) Hydrochlorothiazide 25 MG Oral Tablet Hydrochlorothiazide 25 MG 04/03/2020 12:00:00 AM EDT 1.0 {tablet_in_the_morning} acti ve Hydrochlorothiazide 25 MG eCW1 ([facility]) Isosorbide Dinitrate 30 MG Oral Tablet Isosorbide Dinitrate 30 MG 04/03/2020 12:00:00 AM EDT 1.0 {tablet} active Is osorbide Dinitrate 30 MG eCW1 ([facility]) Hydrochlorothiazide 25 MG Oral Tablet hydroCHLOROthiaz brennan 25 MG hydroCHLOROthiazide 25 MG 04/03/2020 12:00:00 AM EDT 1.0 {tablet_in_the_morning} active hydroCHL OROthiazide 25 MG eCW1 ([facility]) Clonidine Hydrochloride 0.1 MG Oral Tablet cloNIDine H Cl 0.1 MG cloNIDine HCl 0.1 MG 04/03/2020 12:00:00 AM EDT 1.0 {tablet} suspe nded cloNIDine HCl 0.1 MG eCW1 ([facility]) Hydrochlorothiazide 25 MG Oral Tablet Hydrochlorothiazide 25 MG 04/03/2020 12:00:00 AM EDT 1.0 {tablet_in_the_morning} acti ve Hydrochlorothiazide 25 MG eCW1 ([facility]) Hydrochlorothiazide 25 MG Oral Tablet Hydrochlorothiazide 25 MG 04/03/2020 12:00:00 AM EDT 1.0 {tablet_in_the_morning} acti ve Hydrochlorothiazide 25 MG eCW1 ([facility]) Clonidine Hydrochloride 0.1 MG Oral Tablet Clonidine H Cl 0.1 MG Clonidine HCl 0.1 MG 04/03/2020 12:00:00 AM EDT 1.0 {tablet} activ e Clonidine HCl 0.1 MG eCW1 ([facility]) Clonidine Hydrochloride 0.1 MG Oral Tablet Clonidine H Cl 0.1 MG Clonidine HCl 0.1 MG 04/03/2020 12:00:00 AM EDT 1.0 {tablet} suspe nded Clonidine HCl 0.1 MG eCW1 ([facility]) Clonidine Hydrochloride 0.1 MG Oral Tablet Clonidine H Cl 0.1 MG Clonidine HCl 0.1 MG 04/03/2020 12:00:00 AM EDT 1.0 {tablet} suspe nded Clonidine HCl 0.1 MG eCW1 ([facility]) Clonidine Hydrochloride 0.1 MG Oral Tablet cloNIDine H Cl 0.1 MG cloNIDine HCl 0.1 MG 04/03/2020 12:00:00 AM EDT 1.0 {tablet} suspe nded cloNIDine HCl 0.1 MG eCW1 ([facility]) atorvastatin 80 MG Oral Tablet Atorvastatin Calcium 80 MG Atorvastatin Calcium 80 MG 04/03/2020 12:00:00 AM EDT 1.0 {tablet} activ e Atorvastatin Calcium 80 MG eCW1 ([facility]) atorvastatin 80 MG Oral Tablet Atorvastatin Calcium 80 MG Atorvastatin Calcium 80 MG 04/03/2020 12:00:00 AM EDT 1.0 {tablet} activ e Atorvastatin Calcium 80 MG eCW1 ([facility]) Aspirin 81 MG Delayed Release Oral Tablet Aspirin 81 81 MG A spirin 81 81 MG 04/03/2020 12:00:00 AM EDT 1.0 {tablet} active Aspirin 81 81 MG eCW1 ([facility]) Clonidine Hydrochloride 0.1 MG Oral Tablet Clonidine H Cl 0.1 MG Clonidine HCl 0.1 MG 04/03/2020 12:00:00 AM EDT 1.0 {tablet} suspe nded Clonidine HCl 0.1 MG eCW1 ([facility]) Aspirin 81 MG Delayed Release Oral Tablet Aspirin 81 81 MG A spirin 81 81 MG 04/03/2020 12:00:00 AM EDT 1.0 {tablet} active Aspirin 81 81 MG eCW1 ([facility]) Hydrochlorothiazide 25 MG Oral Tablet Hydrochlorothiazide 25 MG 04/03/2020 12:00:00 AM EDT 1.0 {tablet_in_the_morning} acti ve Hydrochlorothiazide 25 MG eCW1 ([facility]) Hydrochlorothiazide 25 MG Oral Tablet Hydrochlorothiazide 25 MG 04/03/2020 12:00:00 AM EDT 1.0 {tablet_in_the_morning} acti ve Hydrochlorothiazide 25 MG eCW1 ([facility]) Clonidine Hydrochloride 0.1 MG Oral Tablet Clonidine H Cl 0.1 MG Clonidine HCl 0.1 MG 04/03/2020 12:00:00 AM EDT 1.0 {tablet} suspe nded Clonidine HCl 0.1 MG eCW1 ([facility]) Hydrochlorothiazide 25 MG Oral Tablet Hydrochlorothiazide 25 MG 04/03/2020 12:00:00 AM EDT 1.0 {tablet_in_the_morning} acti ve Hydrochlorothiazide 25 MG eCW1 ([facility]) Isosorbide Dinitrate 30 MG Oral Tablet Isosorbide Dinitrate 30 MG 04/03/2020 12:00:00 AM EDT 1.0 {tablet} active Is osorbide Dinitrate 30 MG eCW1 ([facility]) Clonidine Hydrochloride 0.1 MG Oral Tablet Clonidine H Cl 0.1 MG Clonidine HCl 0.1 MG 04/03/2020 12:00:00 AM EDT 1.0 {tablet} suspe nded Clonidine HCl 0.1 MG eCW1 ([facility]) Aspirin 81 MG Delayed Release Oral Tablet Aspirin 81 81 MG A spirin 81 81 MG 04/03/2020 12:00:00 AM EDT 1.0 {tablet} active Aspirin 81 81 MG eCW1 ([facility]) Hydrochlorothiazide 25 MG Oral Tablet Hydrochlorothiazide 25 MG 04/03/2020 12:00:00 AM EDT 1.0 {tablet_in_the_morning} acti ve Hydrochlorothiazide 25 MG eCW1 ([facility]) Aspirin 81 MG Delayed Release Oral Tablet Aspirin 81 81 MG A spirin 81 81 MG 04/03/2020 12:00:00 AM EDT 1.0 {tablet} active Aspirin 81 81 MG eCW1 ([facility]) Hydrochlorothiazide 25 MG Oral Tablet Hydrochlorothiazide 25 MG 04/03/2020 12:00:00 AM EDT 1.0 {tablet_in_the_morning} acti ve Hydrochlorothiazide 25 MG eCW1 ([facility]) Aspirin 81 MG Delayed Release Oral Tablet Aspirin 81 81 MG A spirin 81 81 MG 04/03/2020 12:00:00 AM EDT 1.0 {tablet} active Aspirin 81 81 MG eCW1 ([facility]) atorvastatin 80 MG Oral Tablet Atorvastatin Calcium 80 MG Atorvastatin Calcium 80 MG 04/03/2020 12:00:00 AM EDT 1.0 {tablet} activ e Atorvastatin Calcium 80 MG eCW1 ([facility]) Hydrochlorothiazide 25 MG Oral Tablet Hydrochlorothiazide 25 MG 04/03/2020 12:00:00 AM EDT 1.0 {tablet_in_the_morning} acti ve Hydrochlorothiazide 25 MG eCW1 ([facility]) Clonidine Hydrochloride 0.1 MG Oral Tablet Clonidine H Cl 0.1 MG Clonidine HCl 0.1 MG 04/03/2020 12:00:00 AM EDT 1.0 {tablet} suspe nded Clonidine HCl 0.1 MG eCW1 ([facility]) pregabalin 150 MG Oral Capsule pregabalin (LYRICA) 150 MG capsule pregabalin (LYRICA) 150 MG capsule 04/03/2020 12:00:00 AM EDT aborted TK 1 C PO BID. MDD 2 CS [facility] Clonidine Hydrochloride 0.1 MG Oral Tablet Clonidine H Cl 0.1 MG Clonidine HCl 0.1 MG 04/03/2020 12:00:00 AM EDT 1.0 {tablet} suspe nded Clonidine HCl 0.1 MG eCW1 ([facility]) Clonidine Hydrochloride 0.1 MG Oral Tablet Clonidine H Cl 0.1 MG Clonidine HCl 0.1 MG 04/03/2020 12:00:00 AM EDT 1.0 {tablet} suspe nded Clonidine HCl 0.1 MG eCW1 ([facility]) Hydrochlorothiazide 25 MG Oral Tablet hydroCHLOROthiaz brennan 25 MG hydroCHLOROthiazide 25 MG 04/03/2020 12:00:00 AM EDT 1.0 {tablet_in_the_morning} active hydroCHL OROthiazide 25 MG eCW1 ([facility]) meloxicam 15 MG Oral Tablet meloxicam (MOBIC) 15 MG ta blet meloxicam (MOBIC) 15 MG tablet 04/03/2020 12:00:00 AM EDT aborted as needed [facility] Clonidine Hydrochloride 0.1 MG Oral Tablet Clonidine H Cl 0.1 MG Clonidine HCl 0.1 MG 04/03/2020 12:00:00 AM EDT 1.0 {tablet} suspe nded Clonidine HCl 0.1 MG eCW1 ([facility]) Hydrochlorothiazide 25 MG Oral Tablet Hydrochlorothiazide 25 MG 04/03/2020 12:00:00 AM EDT 1.0 {tablet_in_the_morning} acti ve Hydrochlorothiazide 25 MG eCW1 ([facility]) Hydrochlorothiazide 25 MG Oral Tablet Hydrochlorothiazide 25 MG 04/03/2020 12:00:00 AM EDT 1.0 {tablet_in_the_morning} acti ve Hydrochlorothiazide 25 MG eCW1 ([facility]) Isosorbide Dinitrate 30 MG Oral Tablet Isosorbide Dinitrate 30 MG 04/03/2020 12:00:00 AM EDT 1.0 {tablet} active Is osorbide Dinitrate 30 MG eCW1 ([facility]) Aspirin 81 MG Delayed Release Oral Tablet Aspirin 81 81 MG A spirin 81 81 MG 04/03/2020 12:00:00 AM EDT 1.0 {tablet} active Aspirin 81 81 MG eCW1 ([facility]) Hydrochlorothiazide 25 MG Oral Tablet Hydrochlorothiazide 25 MG 04/03/2020 12:00:00 AM EDT 1.0 {tablet_in_the_morning} acti ve Hydrochlorothiazide 25 MG eCW1 ([facility]) Clonidine Hydrochloride 0.1 MG Oral Tablet Clonidine H Cl 0.1 MG Clonidine HCl 0.1 MG 04/03/2020 12:00:00 AM EDT 1.0 {tablet} activ e Clonidine HCl 0.1 MG eCW1 ([facility]) Aspirin 81 MG Delayed Release Oral Tablet Aspirin 81 81 MG A spirin 81 81 MG 04/03/2020 12:00:00 AM EDT 1.0 {tablet} active Aspirin 81 81 MG eCW1 ([facility]) atorvastatin 80 MG Oral Tablet Atorvastatin Calcium 80 MG Atorvastatin Calcium 80 MG 04/03/2020 12:00:00 AM EDT 1.0 {tablet} activ e Atorvastatin Calcium 80 MG eCW1 ([facility]) Hydrochlorothiazide 25 MG Oral Tablet Hydrochlorothiazide 25 MG 04/03/2020 12:00:00 AM EDT 1.0 {tablet_in_the_morning} acti ve Hydrochlorothiazide 25 MG eCW1 ([facility]) Isosorbide Dinitrate 30 MG Oral Tablet Isosorbide Dinitrate 30 MG 04/03/2020 12:00:00 AM EDT 1.0 {tablet} active Is osorbide Dinitrate 30 MG eCW1 ([facility]) Hydrochlorothiazide 25 MG Oral Tablet Hydrochlorothiazide 25 MG 04/03/2020 12:00:00 AM EDT 1.0 {tablet_in_the_morning} acti ve Hydrochlorothiazide 25 MG eCW1 ([facility]) Hydrochlorothiazide 25 MG Oral Tablet Hydrochlorothiazide 25 MG 04/03/2020 12:00:00 AM EDT 1.0 {tablet_in_the_morning} acti ve Hydrochlorothiazide 25 MG eCW1 ([facility]) Aspirin 81 MG Delayed Release Oral Tablet Aspirin 81 81 MG A spirin 81 81 MG 04/03/2020 12:00:00 AM EDT 1.0 {tablet} active Aspirin 81 81 MG eCW1 ([facility]) Clonidine Hydrochloride 0.1 MG Oral Tablet Clonidine H Cl 0.1 MG Clonidine HCl 0.1 MG 04/03/2020 12:00:00 AM EDT 1.0 {tablet} suspe nded Clonidine HCl 0.1 MG eCW1 ([facility]) Clonidine Hydrochloride 0.1 MG Oral Tablet Clonidine H Cl 0.1 MG Clonidine HCl 0.1 MG 04/03/2020 12:00:00 AM EDT 1.0 {tablet} suspe nded Clonidine HCl 0.1 MG eCW1 ([facility]) Isosorbide Dinitrate 30 MG Oral Tablet Isosorbide Dinitrate 30 MG 04/03/2020 12:00:00 AM EDT 1.0 {tablet} active Is osorbide Dinitrate 30 MG eCW1 ([facility]) Aspirin 81 MG Delayed Release Oral Tablet Aspirin 81 81 MG A spirin 81 81 MG 04/03/2020 12:00:00 AM EDT 1.0 {tablet} active Aspirin 81 81 MG eCW1 ([facility]) Hydrochlorothiazide 25 MG Oral Tablet Hydrochlorothiazide 25 MG 04/03/2020 12:00:00 AM EDT 1.0 {tablet_in_the_morning} acti ve Hydrochlorothiazide 25 MG eCW1 ([facility]) atorvastatin 80 MG Oral Tablet Atorvastatin Calcium 80 MG Atorvastatin Calcium 80 MG 04/03/2020 12:00:00 AM EDT 1.0 {tablet} activ e Atorvastatin Calcium 80 MG eCW1 ([facility]) Clonidine Hydrochloride 0.1 MG Oral Tablet Clonidine H Cl 0.1 MG Clonidine HCl 0.1 MG 04/03/2020 12:00:00 AM EDT 1.0 {tablet} suspe nded Clonidine HCl 0.1 MG eCW1 ([facility]) Clonidine Hydrochloride 0.1 MG Oral Tablet Clonidine H Cl 0.1 MG Clonidine HCl 0.1 MG 04/03/2020 12:00:00 AM EDT 1.0 {tablet} suspe nded Clonidine HCl 0.1 MG eCW1 ([facility]) Aspirin 81 MG Delayed Release Oral Tablet Aspirin 81 81 MG A spirin 81 81 MG 04/03/2020 12:00:00 AM EDT 1.0 {tablet} active Aspirin 81 81 MG eCW1 ([facility]) Clonidine Hydrochloride 0.1 MG Oral Tablet cloNIDine H Cl 0.1 MG cloNIDine HCl 0.1 MG 04/03/2020 12:00:00 AM EDT 1.0 {tablet} suspe nded cloNIDine HCl 0.1 MG eCW1 ([facility]) Clonidine Hydrochloride 0.1 MG Oral Tablet Clonidine H Cl 0.1 MG Clonidine HCl 0.1 MG 04/03/2020 12:00:00 AM EDT 1.0 {tablet} suspe nded Clonidine HCl 0.1 MG eCW1 ([facility]) Clonidine Hydrochloride 0.1 MG Oral Tablet Clonidine H Cl 0.1 MG Clonidine HCl 0.1 MG 04/03/2020 12:00:00 AM EDT 1.0 {tablet} suspe nded Clonidine HCl 0.1 MG eCW1 ([facility]) Isosorbide Dinitrate 30 MG Oral Tablet Isosorbide Dinitrate 30 MG 04/03/2020 12:00:00 AM EDT 1.0 {tablet} suspended Isosorbide Dinitrate 30 MG eCW1 ([facility]) Clonidine Hydrochloride 0.1 MG Oral Tablet Clonidine H Cl 0.1 MG Clonidine HCl 0.1 MG 04/03/2020 12:00:00 AM EDT 1.0 {tablet} suspe nded Clonidine HCl 0.1 MG eCW1 ([facility]) Hydrochlorothiazide 25 MG Oral Tablet Hydrochlorothiazide 25 MG 04/03/2020 12:00:00 AM EDT 1.0 {tablet_in_the_morning} acti ve Hydrochlorothiazide 25 MG eCW1 ([facility]) Clonidine Hydrochloride 0.1 MG Oral Tablet Clonidine H Cl 0.1 MG Clonidine HCl 0.1 MG 04/03/2020 12:00:00 AM EDT 1.0 {tablet} suspe nded Clonidine HCl 0.1 MG eCW1 ([facility]) Clonidine Hydrochloride 0.1 MG Oral Tablet Clonidine H Cl 0.1 MG Clonidine HCl 0.1 MG 04/03/2020 12:00:00 AM EDT 1.0 {tablet} suspe nded Clonidine HCl 0.1 MG eCW1 ([facility]) Clonidine Hydrochloride 0.1 MG Oral Tablet cloNIDine H Cl 0.1 MG cloNIDine HCl 0.1 MG 04/03/2020 12:00:00 AM EDT 1.0 {tablet} suspe nded cloNIDine HCl 0.1 MG eCW1 ([facility]) Clonidine Hydrochloride 0.1 MG Oral Tablet cloNIDine H Cl 0.1 MG cloNIDine HCl 0.1 MG 04/03/2020 12:00:00 AM EDT 1.0 {tablet} suspe nded cloNIDine HCl 0.1 MG eCW1 ([facility]) Hydrochlorothiazide 25 MG Oral Tablet Hydrochlorothiazide 25 MG 04/03/2020 12:00:00 AM EDT 1.0 {tablet_in_the_morning} acti ve Hydrochlorothiazide 25 MG eCW1 ([facility]) Clonidine Hydrochloride 0.1 MG Oral Tablet Clonidine H Cl 0.1 MG Clonidine HCl 0.1 MG 04/03/2020 12:00:00 AM EDT 1.0 {tablet} suspe nded Clonidine HCl 0.1 MG eCW1 ([facility]) Hydrochlorothiazide 25 MG Oral Tablet Hydrochlorothiazide 25 MG 04/03/2020 12:00:00 AM EDT 1.0 {tablet_in_the_morning} acti ve Hydrochlorothiazide 25 MG eCW1 ([facility]) Aspirin 81 MG Delayed Release Oral Tablet Aspirin 81 81 MG A spirin 81 81 MG 04/03/2020 12:00:00 AM EDT 1.0 {tablet} active Aspirin 81 81 MG eCW1 ([facility]) Clonidine Hydrochloride 0.1 MG Oral Tablet Clonidine H Cl 0.1 MG Clonidine HCl 0.1 MG 04/03/2020 12:00:00 AM EDT 1.0 {tablet} activ e Clonidine HCl 0.1 MG eCW1 ([facility]) atorvastatin 80 MG Oral Tablet Atorvastatin Calcium 80 MG Atorvastatin Calcium 80 MG 04/03/2020 12:00:00 AM EDT 1.0 {tablet} activ e Atorvastatin Calcium 80 MG eCW1 ([facility]) Clonidine Hydrochloride 0.1 MG Oral Tablet Clonidine H Cl 0.1 MG Clonidine HCl 0.1 MG 04/03/2020 12:00:00 AM EDT 1.0 {tablet} suspe nded Clonidine HCl 0.1 MG eCW1 ([facility]) Hydrochlorothiazide 25 MG Oral Tablet Hydrochlorothiazide 25 MG 04/03/2020 12:00:00 AM EDT 1.0 {tablet_in_the_morning} acti ve Hydrochlorothiazide 25 MG eCW1 ([facility]) Aspirin 81 MG Delayed Release Oral Tablet Aspirin 81 81 MG A spirin 81 81 MG 04/03/2020 12:00:00 AM EDT 1.0 {tablet} active Aspirin 81 81 MG eCW1 ([facility]) Clonidine Hydrochloride 0.1 MG Oral Tablet Clonidine H Cl 0.1 MG Clonidine HCl 0.1 MG 04/03/2020 12:00:00 AM EDT 1.0 {tablet} suspe nded Clonidine HCl 0.1 MG eCW1 ([facility]) Albuterol Sulfate HFA 108 (90 Base) MCG/ACT Albuterol Sulfate HFA 108 (90 Base) MCG/ACT 03/27/2020 12:00:00 AM EDT 1.0 {puff_as_needed} suspended Albuterol Sulfate HFA 108 (90 Base) MCG/ACT eCW1 ([facility]) Albuterol Sulfate HFA 108 (90 Base) MCG/ACT Albuterol Sulfate HFA 108 (90 Base) MCG/ACT 03/27/2020 12:00:00 AM EDT 1.0 {puff_as_needed} suspended Albuterol Sulfate HFA 108 (90 Base) MCG/ACT eCW1 ([facility]) Albuterol Sulfate HFA 108 (90 Base) MCG/ACT Albuterol Sulfate HFA 108 (90 Base) MCG/ACT 03/27/2020 12:00:00 AM EDT 1.0 {puff_as_needed} suspended Albuterol Sulfate HFA 108 (90 Base) MCG/ACT eCW1 ([facility]) Albuterol Sulfate HFA 108 (90 Base) MCG/ACT Albuterol Sulfate HFA 108 (90 Base) MCG/ACT 03/27/2020 12:00:00 AM EDT 1.0 {puff_as_needed} active Albuterol Sulfate HFA 108 (90 Base) MCG/ACT eCW1 ([facility]) Albuterol Sulfate HFA 108 (90 Base) MCG/ACT Albuterol Sulfate HFA 108 (90 Base) MCG/ACT 03/27/2020 12:00:00 AM EDT 1.0 {puff_as_needed} suspended Albuterol Sulfate HFA 108 (90 Base) MCG/ACT eCW1 ([facility]) Albuterol Sulfate HFA 108 (90 Base) MCG/ACT Albuterol Sulfate HFA 108 (90 Base) MCG/ACT 03/27/2020 12:00:00 AM EDT 1.0 {puff_as_needed} suspended Albuterol Sulfate HFA 108 (90 Base) MCG/ACT eCW1 ([facility]) Albuterol Sulfate HFA 108 (90 Base) MCG/ACT Albuterol Sulfate HFA 108 (90 Base) MCG/ACT 03/27/2020 12:00:00 AM EDT 1.0 {puff_as_needed} active Albuterol Sulfate HFA 108 (90 Base) MCG/ACT eCW1 ([facility]) Albuterol Sulfate HFA 108 (90 Base) MCG/ACT Albuterol Sulfate HFA 108 (90 Base) MCG/ACT 03/27/2020 12:00:00 AM EDT 1.0 {puff_as_needed} active Albuterol Sulfate HFA 108 (90 Base) MCG/ACT eCW1 ([facility]) Albuterol Sulfate HFA 108 (90 Base) MCG/ACT Albuterol Sulfate HFA 108 (90 Base) MCG/ACT 03/27/2020 12:00:00 AM EDT 1.0 {puff_as_needed} active Albuterol Sulfate HFA 108 (90 Base) MCG/ACT eCW1 ([facility]) Albuterol Sulfate HFA 108 (90 Base) MCG/ACT Albuterol Sulfate HFA 108 (90 Base) MCG/ACT 03/27/2020 12:00:00 AM EDT 1.0 {puff_as_needed} active Albuterol Sulfate HFA 108 (90 Base) MCG/ACT eCW1 ([facility]) Albuterol Sulfate HFA 108 (90 Base) MCG/ACT Albuterol Sulfate HFA 108 (90 Base) MCG/ACT 03/27/2020 12:00:00 AM EDT 1.0 {puff_as_needed} suspended Albuterol Sulfate HFA 108 (90 Base) MCG/ACT eCW1 ([facility]) Albuterol Sulfate HFA 108 (90 Base) MCG/ACT Albuterol Sulfate HFA 108 (90 Base) MCG/ACT 03/27/2020 12:00:00 AM EDT 1.0 {puff_as_needed} suspended Albuterol Sulfate HFA 108 (90 Base) MCG/ACT eCW1 ([facility]) Albuterol Sulfate HFA 108 (90 Base) MCG/ACT Albuterol Sulfate HFA 108 (90 Base) MCG/ACT 03/27/2020 12:00:00 AM EDT 1.0 {puff_as_needed} suspended Albuterol Sulfate HFA 108 (90 Base) MCG/ACT eCW1 ([facility]) Albuterol Sulfate HFA 108 (90 Base) MCG/ACT Albuterol Sulfate HFA 108 (90 Base) MCG/ACT 03/27/2020 12:00:00 AM EDT 1.0 {puff_as_needed} active Albuterol Sulfate HFA 108 (90 Base) MCG/ACT eCW1 ([facility]) Albuterol Sulfate HFA 108 (90 Base) MCG/ACT Albuterol Sulfate HFA 108 (90 Base) MCG/ACT 03/27/2020 12:00:00 AM EDT 1.0 {puff_as_needed} suspended Albuterol Sulfate HFA 108 (90 Base) MCG/ACT eCW1 ([facility]) Albuterol Sulfate HFA 108 (90 Base) MCG/ACT Albuterol Sulfate HFA 108 (90 Base) MCG/ACT 03/27/2020 12:00:00 AM EDT 1.0 {puff_as_needed} suspended Albuterol Sulfate HFA 108 (90 Base) MCG/ACT eCW1 ([facility]) Albuterol Sulfate HFA 108 (90 Base) MCG/ACT Albuterol Sulfate HFA 108 (90 Base) MCG/ACT 03/27/2020 12:00:00 AM EDT 1.0 {puff_as_needed} active Albuterol Sulfate HFA 108 (90 Base) MCG/ACT eCW1 ([facility]) Albuterol Sulfate HFA 108 (90 Base) MCG/ACT Albuterol Sulfate HFA 108 (90 Base) MCG/ACT 03/27/2020 12:00:00 AM EDT 1.0 {puff_as_needed} suspended Albuterol Sulfate HFA 108 (90 Base) MCG/ACT eCW1 ([facility]) Albuterol Sulfate HFA 108 (90 Base) MCG/ACT Albuterol Sulfate HFA 108 (90 Base) MCG/ACT 03/27/2020 12:00:00 AM EDT 1.0 {puff_as_needed} active Albuterol Sulfate HFA 108 (90 Base) MCG/ACT eCW1 ([facility]) Albuterol Sulfate HFA 108 (90 Base) MCG/ACT Albuterol Sulfate HFA 108 (90 Base) MCG/ACT 03/27/2020 12:00:00 AM EDT 1.0 {puff_as_needed} active Albuterol Sulfate HFA 108 (90 Base) MCG/ACT eCW1 ([facility]) albuterol (PROVENTIL HFA;VENTOLIN HFA) 108 (90 Base) M CG/ACT inhaler [id number] 03/27/2020 12:00:00 AM EDT abort ed INHALE ONE PUFF BY MOUTH EVERY 4 HOURS NEEDED [facility] Albuterol Sulfate HFA 108 (90 Base) MCG/ACT Albuterol Sulfate HFA 108 (90 Base) MCG/ACT 03/27/2020 12:00:00 AM EDT 1.0 {puff_as_needed} active Albuterol Sulfate HFA 108 (90 Base) MCG/ACT eCW1 ([facility]) Albuterol Sulfate HFA 108 (90 Base) MCG/ACT Albuterol Sulfate HFA 108 (90 Base) MCG/ACT 03/27/2020 12:00:00 AM EDT 1.0 {puff_as_needed} suspended Albuterol Sulfate HFA 108 (90 Base) MCG/ACT eCW1 ([facility]) Albuterol Sulfate HFA 108 (90 Base) MCG/ACT Albuterol Sulfate HFA 108 (90 Base) MCG/ACT 03/27/2020 12:00:00 AM EDT 1.0 {puff_as_needed} suspended Albuterol Sulfate HFA 108 (90 Base) MCG/ACT eCW1 ([facility]) Albuterol Sulfate HFA 108 (90 Base) MCG/ACT Albuterol Sulfate HFA 108 (90 Base) MCG/ACT 03/27/2020 12:00:00 AM EDT 1.0 {puff_as_needed} suspended Albuterol Sulfate HFA 108 (90 Base) MCG/ACT eCW1 ([facility]) Albuterol Sulfate HFA 108 (90 Base) MCG/ACT Albuterol Sulfate HFA 108 (90 Base) MCG/ACT 03/27/2020 12:00:00 AM EDT 1.0 {puff_as_needed} active Albuterol Sulfate HFA 108 (90 Base) MCG/ACT eCW1 ([facility]) Albuterol Sulfate HFA 108 (90 Base) MCG/ACT Albuterol Sulfate HFA 108 (90 Base) MCG/ACT 03/27/2020 12:00:00 AM EDT 1.0 {puff_as_needed} suspended Albuterol Sulfate HFA 108 (90 Base) MCG/ACT eCW1 ([facility]) Albuterol Sulfate HFA 108 (90 Base) MCG/ACT Albuterol Sulfate HFA 108 (90 Base) MCG/ACT 03/27/2020 12:00:00 AM EDT 1.0 {puff_as_needed} suspended Albuterol Sulfate HFA 108 (90 Base) MCG/ACT eCW1 ([facility]) 90 mcg/actuation 03/27/2020 12:00:00 AM EDT HFA [...] Sulfate HFA 108 (90 Base) MCG/ACT eCW1 ([facility]) Albuterol Sulfate HFA 108 (90 Base) MCG/ACT Albuterol Sulfate HFA 108 (90 Base) MCG/ACT 03/27/2020 12:00:00 AM EDT 1.0 {puff_as_needed} active Albuterol Sulfate HFA 108 (90 Base) MCG/ACT eCW1 ([facility]) Albuterol Sulfate HFA 108 (90 Base) MCG/ACT Albuterol Sulfate HFA 108 (90 Base) MCG/ACT 03/27/2020 12:00:00 AM EDT 1.0 {puff_as_needed} suspended Albuterol Sulfate HFA 108 (90 Base) MCG/ACT eCW1 ([facility]) Albuterol Sulfate HFA 108 (90 Base) MCG/ACT Albuterol Sulfate HFA 108 (90 Base) MCG/ACT 03/27/2020 12:00:00 AM EDT 1.0 {puff_as_needed} active Albuterol Sulfate HFA 108 (90 Base) MCG/ACT eCW1 ([facility]) Albuterol Sulfate HFA 108 (90 Base) MCG/ACT Albuterol Sulfate HFA 108 (90 Base) MCG/ACT 03/27/2020 12:00:00 AM EDT 1.0 {puff_as_needed} suspended Albuterol Sulfate HFA 108 (90 Base) MCG/ACT eCW1 ([facility]) Albuterol Sulfate HFA 108 (90 Base) MCG/ACT Albuterol Sulfate HFA 108 (90 Base) MCG/ACT 03/27/2020 12:00:00 AM EDT 1.0 {puff_as_needed} active Albuterol Sulfate HFA 108 (90 Base) MCG/ACT eCW1 ([facility]) pregabalin 150 MG Oral Capsule Pregabalin 03/25/2020 12:00:00 AM EDT ORAL active [facility] ([facility]) Omeprazole 20 MG Delayed Release Oral Ca psule omeprazole (PRILOSEC) 20 MG capsule omeprazole (PRILOSEC) 20 MG capsule 02/07/2020 12:00:00 AM EDT aborted TAKE ONE CAPSULE BY MOUTH EVERY MORNING 30 MINUTES BEFORE MORNING MEAL [facility] pregabalin 150 MG Oral Capsule [Lyrica] Lyrica 01/07/2020 12:00:0 0 AM EDT ORAL completed [facility] ([facility]) Lisinopril 20 MG Oral Tablet lisinopril (PRINIVIL,ZEST RIL) 20 MG tablet lisinopril (PRINIVIL,ZESTRIL) 20 MG tablet 20 mg Oral aborted Take 20 mg by mouth daily [facility] Diltiazem Hydrochloride 30 MG Oral Tablet diltiazem (C ARDIZEM) 30 MG tablet diltiazem (CARDIZEM) 30 MG tablet 30 mg Oral abor jason Take 30 mg by mouth 2 (two) times a day [facility] Insurance Providers Payer name Policy type / Coverage type Policy ID Covered constitution party ID Covered constitution party's relationship to dawson Policy Dawson Plan Information D [facility] P [id number] S [id number] [facility] PLAN [facility] [id number] SP [id number] Progressive (NF) Workers Compensation [id number] Self [id number] NO FAULT [id number] Paulina 6 Progressive (NF) Workers Compensation [id number] Self [id number] PROGRESSIVE CO NO FAULT [id number] SP [id number] PROGRESSIVE E [id number] Self [id number] [facility] Community Plan P [id number] S [id number] [facility] P [id number] S [id number] [employer] (NF) Workers Compensation [id number] Self [id number] [employer] (NF) Workers Compensation [id number] Self [id number] [employer] (NF) Workers Compensation [id number] Self [id number] [employer] (WC) Workers Compensation [id number] Self [id number] [employer] (WC) Workers Compensation [id number] Self [id number] [facility] MEDICAID [id number] xxxxxxxxx [id number] 1 [facility] MEDICAID [id number] Paulina [id number] 46 [facility] MEDICAID [id number] xxxxxxxxx [id number] 5 [facility] MEDICAID [id number] Paulina [id number] PRO[employer]IVE CO NO FAULT [id number] SP [id number] SELF PAY ONLY [id number] SP [id number] SELF PAY ONLY SP1 SP SP1 O UNAVAILABLE UNAVAILA BLE SELF PAY ONLY [id number] SP [id number] [employer] O [id number] S [id number] [employer] NF [id number] SP [id number] ANSI-Medicaid [id number] ANSI-Medicaid [id number] ANSI-Medicaid [id number] ANSI-Medicaid [id number] ANSI-Medicaid [id number] ANSI-Medicaid [id number] ANSI-Medicaid [id number] ANSI-Not a Secondary Insurance [id number] ANSI-Medicaid [id number] ANSI-Not a Secondary Insurance [id number] ANSI-Medicaid [id number] ANSI-Not a Secondary Insurance [id number] [facility] [id number] ANSI-Medicaid [id number] ANSI-Not a Secondary Insurance [id number] ANSI-Medicaid [id number] ANSI-Not a Secondary Insurance [id number] ANSI-Not a Secondary Insurance [id number] ANSI-Medicaid [id number] ANSI-Medicaid [id number] ANSI-Not a Secondary Insurance [id number] PROGRESSIVE CO NO FAULT [id number] SP [id number] PROGRESSIVE CO NO FAULT [id number] SP [id number] ANSI-Not a Secondary Insurance [id number] ANSI-Medicaid [id number] OTHER WORKERS COMPENSATION [id number] SP [id number] MEDICAID M [id number] S [id number] MEDICAID [id number] SP [id number] PROGRESSIVE CO NO FAULT [id number] SP [id number] [facility] O [id number] S [id number] Managed Care - Community Plan [facility] P [id number] S [id number] ANSI-Medicaid [id number] ANSI-Not a Secondary Insurance [id number] ANSI-Medicaid [id number] ANSI-Not a Secondary Insurance [id number] Medicaid Dental S UNAVAILABLE S UN AVAILABLE PROGRESSIVE CO NO FAULT O [id number] S [id number] PROGRESSIVE CO NO FAULT [id number] SP [id number] PROGRESSIVE CO NO FAULT O [id number] S [id number] NF Progressive Insurance Claim No. [id number] Claim No. [id number] PROGRESSIVE CO NO FAULT [id number] SP [id number] NO FAULT [id number] Paulina [id number] NO FAULT PI PI NO FAULT [id number] Paulina [id number] [facility](MCAID) O [id number] S [id number] SELF PAY UNAVAILABLE SP UNAVAILA BLE [facility] [id number] SP [id number] [facility] [id number] SP [id number] [facility] [id number] SP [id number] PROGRESSIVE CO NO FAULT [id number] SP [id number] PROGRESSIVE CO NO FAULT [id number] SP [id number] PROGRESSIVE CO NO FAULT [id number] SP [id number] [facility] O [id number] S [id number] PROGRESSIVE CO NO FAULT O [id number] S [id number] Medicaid S [id number] S [id number] SELF PAY ONLY - SP1 SP PROGRESSIVE O [id number] S [id number] [facility] CLAIMS [id number] SP [id number] MEDICAID [id number] SP [id number] UMR/POMCO RISK MANAGEMENT SP [facility] CLAIMS [id number] SP [id number] PROGRESSIVE [employer] NO FAULT [id number] SP [id number] PROGRESSIVE CO NO FAULT [id number] SP [id number] SELF PAY ONLY [id number] Problems, Conditions, and Diagnoses Code Display Name Description Problem Type Effective Dates Data Source(s) I10 Essential (primary) hypertension Essential (primary) h ypertension Diagnosis 02/23/2021 07:04:11 AM EDT [facility] Z91.89 Other specified personal risk factors, n ot elsewhere classified Other specified personal risk factors, n Diagnosis 02/23/2021 07:04:11 AM ED T [facility] R07.89 Other chest pain Other chest pain Diagnosis 11/04/2020 03 :10:04 PM EDT [facility] E78.2 Mixed hyperlipidemia Mixed hyperlipidemia Diagnosis 11/04/2020 03:10:04 PM EDT [facility] R55 Syncope and collapse Syncope and collapse Diagnosis 11/04/2020 03:10:04 PM EDT [facility] N28.9 Disorder of kidney and ureter, unspecifi ed Disorder of kidney and ureter, unspecifi Diagnosis 07/01/2020 10:28:25 AM EST [facility] Z01.818 Pre-procedure evaluation check Preop testing Problem 04/13/2021 12:00:00 AM EDT eCW1 ([facility]) N39.0 Urinary tract infectious disease UTI (urinary tract in fection) Problem 04/13/2021 12:00:00 AM EDT eCW1 ([facility]) N20.0 Kidney stone Kidney stone Problem 04/13/2021 12:00:00 A M EDT eCW1 ([facility]) G47.33 ARVIN (obstructive sleep apnea) ARVIN (obstructive sleep a pnea) [id number] 02/23/2021 12:00:00 AM EDT [facility] R07.89 Atypical chest pain Atypical chest pain [id number] 0 11/04/2020 12:00:00 AM EDT [facility] R55 Syncope Syncope [id number] 11/04/2020 12:00:00 AM ED T [facility] I49.3 [id number] PVC (premature ventricular contraction) P roblem 10/01/2020 12:00:00 AM EDT eCW1 ([facility]) R31.29 Microscopic hematuria Microscopic hematuria Problem 08/11/2020 12:00:00 AM EST eCW1 ([facility]) [id number] Essential hypertension Essential hypertension Problem 07/15/2020 12:00:00 AM EST MEDENT ([facility] ) E78.2 Mixed hyperlipidemia Mixed hyperlipidemia [id number] 05/07/2020 12:00:00 AM EST [facility] N28.9 Renal insufficiency Renal insufficiency [id number] 1 07/07/2019 12:00:00 AM EST [facility] I10 Essential hypertension Essential hypertension [id number] 05/07/2020 12:00:00 AM EST [facility] 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 Probl em 04/10/2020 12:00:00 AM EDT eCW1 ([facility]) N20.0 [id number] Kidney stone on left side Problem 04/10/2020 12:00:00 AM EDT eCW1 ([facility]) I10 [id number] Accelerated essential hypertension Proble m 04/08/2020 12:00:00 AM EDT eCW1 ([facility]) H04.123 [id number] Dry eyes Problem 04/05/2020 12:00:00 AM ED T eCW1 ([facility]) E78.5 [id number] Dyslipidemia Problem 04/03/2020 12:00:00 AM EDT eCW1 ([facility]) I20.8 [id number] Stable angina Problem 04/03/2020 12:00:00 AM EDT eCW1 ([facility]) I15.9 [id number] Secondary hypertension Problem 04/03/2020 12 :00:00 AM EDT eCW1 ([facility]) Surgeries/Procedures Procedure Description Date Indications Data Source(s) ECG ROUTINE ECG W/LEAST 12 LDS W/I&R <td>POCT AMB EKG</td><td>Routine</td><td>04/15/2021 5:15 PM EDT</td><td> Atypical chest pain</td><td> </td> 04/15/2021 05:15:00 PM EDT Atypical chest pain [facility] Atypical chest pain OFFICE OUTPATIENT VISIT 15 MINUTES 03/24/2021 12:00:00 AM EDT MEDENT ([facility] ) POCT AMB EKG <td>POCT AMB EKG</td><td>Rou blake</td><td>02/23/2021 8:49 AM EDT</td><td> Atypical chest pain</td><td> </td> 02/23/2021 08:49:00 AM EDT Atypical chest pain [facility] Atypical chest pain OFFICE OUTPATIENT NEW 30 MINUTES 02/20/2021 12:00:00 A M EDT MEDKEVIN ([facility] ) Medication: Lidocaine HCl 2% Jelly 5mL Intravesically 09/17/2020 12:00:00 AM EDT eC ([facility]) BLOOD COUNT COMPLETE AUTO&AUTO DIFRNTL WBC COUNT <td>C BC AND DIFFERENTIAL</td><td>Routine</td><td>09/01/2020</td><td></td><td> </td> 09/01/2020 12:00:00 AM EDT [facility] HEPATIC FUNCTION PANEL <td>HEPATIC FUNCTION PANEL</td><td>Routine</td><td>09/01/2020</td><td></td><td> </td> 09/01/2020 12:00:00 AM EDT [facility] BASIC METABOLIC PANEL CALCIUM TOTAL <td>BASIC METABOLI C PANEL</td><td>Routine</td><td>08/11/2020</td><td></td><td> </td> 08/11/2020 12:00:00 AM EST [facility] BASIC METABOLIC PANEL CALCIUM TOTAL <td>BASIC METABOLI C PANEL</td><td>Routine</td><td>05/23/2020 2:33 PM EST</td><td> Essential hypertension</td><td> </td> 05/23/2020 07:33:00 PM EST Essential hypertension [facility] Essential hypertension ECG ROUTINE ECG W/LEAST 12 LDS W/I&R <td>POCT AMB EKG</td><td>Routine</td><td>05/07/2020 3:30 PM EST</td><td> Essential hypertension</td><td> </td> 05/07/2020 08:30:00 PM EST Essential hypertension [facility] Essential hypertension Results ID Date Data Source [id number] 01/10/2021 05:05:26 PM EDT [facility] Name Value Range Interpretation Code Description Data Anneliese rce(s) Supporting Document(s) &PDF [facility] ACWCJp9eSkVQYdGd87/HTJxcDJSxi9AvDUidEFq2DQteWCMmI7OiaDcmSYSQDc8KBXAeIUAKJFEmQJej waW [file] AgICAgICAgICAgICAgICAgICAgICAgICAgICAgICAgICAgICAgICAgICAgICAgICAgICAgICAgICAgIC RwCIXoQHQmMTUnWAHkHDInTH9KDJDoQWLdWDUoXGJnFHNtFKLgGDSnKPVoDUWtLEBiHITkDIOlISJvBI AgICAgICAgICAgICAgICAgICAgICAgICAgICAgICAg KNKiXVBnQZTxDDZpBJWbHJDgSYBtINEnWMVvSW3DGSYeSMZcTHCmBMQkOREaEPVmXRVjDMOaYVWtSVBv ICAgICAgICAgICAgICAgICAgICAgICAgICAgICAgICAgICAgICAgICAgICAgICAgICAgICAgICAgICAg OXSnFHGxSDJaAI2SJPOtWDQpIJMtAROkBIWwQIRsTA AgICAgICAgICAgICAgICAgICAgICAgICAgICAgICAgICAgICAgICAgICAgICAgICAgICAgICAgICAgIC IzWIXqWXGiWIDfSHYzUUVeWAMaMF1RKBHdFWKqVMYsZJTpLFKgKJBxYGHjZUQtLUZtCSHkFRWmJHKbAN AgICAgICAgICAgICAgICAgICAgICAgICAgICAgICAg DOPcQSXnGOXxQIJjRLIzBDCzUACtCKMgSMIsIXHhNG0AZYAfBPYsLHXbMXCsWFPyVTFgSSVwDUBtOYUk ICAgICAgICAgICAgICAgICAgICAgICAgICAgICAgICAgICAgICAgICAgICAgICAgICAgICAgICAgICAg OFOwBPIiGYWzIGAfXX9RSCFpPSUzJFOfNWCxYLJyXY AgICAgICAgICAgICAgICAgICAgICAgICAgICAgICAgICAgICAgICAgICAgICAgICAgICAgICAgICAgIC ZtOWPmFRHlSOGoZTZhJWHeSUDgVCHsBM2QGHJxQESwDPZhMHDrEHCmZVGuSWGvUTAeLNZqPFDgUZGpFY AgICAgICAgICAgICAgICAgICAgICAgICAgICAgICAg VMAjVECnYEGqYKVgDCDoYJHyYNSbOMTfLEXzGDIbKYOeXE0DHPAhLKMvOSXbWNUnAMUnUQElCVEwVESv ICAgICAgICAgICAgICAgICAgICAgICAgICAgICAgICAgICAgICAgICAgICAgICAgICAgICAgICAgICAg KLYfXYWsKOHkRRFiIVMkGV2DEUPwRBTtEOLcBJDcES AgICAgICAgICAgICAgICAgICAgICAgICAgICAgICAgICAgICAgICAgICAgICAgICAgICAgICAgICAgIC SyMKDbDAKdYJFkJUOnCCQkWHFdLQBjYXOmRS0JJZ75zJWkn8U3XKEmZW1owca/Ww9RMLpfhsArqLXeCI 0SSzKyFP9gzk4TOlHvMQ0qja4VKEaVZwNxJ5Q3kCOp DQQcUGBKXlDoP52kSYtmZr96RRerGQOkMyXhPQh3Te8FCeIgR9rvMYJlJeT7LZSuSvP7PKWjCuS4JPGb KsHfWRShIZJbIVNcCVCODM1HLrXkG8OhoM21HJUMPd2+LBbswkVnWmwPViF6ELAqd0LbOHz1FD2MPESb MLerBJ9LVQVpmF6gEEuaRV3UWfI4VvPiGNSLDbIwL4 6teHYbGCy6A3NjNxBnGVQnAmsrYIXvWYtlEbYrMLToBaJjRHscAD0+ID4+MWsxOE0TWGepdxMxELZdJp 4IGGWoMTT0DVRdfAQvCMgkSZRRXYovDF8NjTRyCRP2lB1kNQnbLGZwCOZbG4rYVsCtuDkbSB25bQicmu VsbCBdDQo+Sr3KBP0jl1ZxSKt9zgQmIJncDVHeHQtv ZQRyWKSvKLXyZVI4OBG1VTUKRpFkBQTyGQMcXHmuPHTmTXUcli6PCUFcHFAgPeP5TXNkSIXrTUHoLHhk ZENxKEI2PNV6GCBhBORyLZ4NCjSeRSCfJDDjZJdyMSRgEHLsib6JYUViSFYsTlJ7ErYvXVMcVTGnPXnm ZRHyUSZlSCZdIBEeKRGhHQ7UGxMfLUElBXi5UQnpLY VhDNJpmh6MQZXdCVDyPPrdQAWdDDOwJUGlNWntMAVzCLSiFjbiUOPvYEClUK7FJjLuZACiOFJ3IEOpHP RmKDFrib2MGABtZOCwYlc4MDUqQTLiTLIkHKhaXFIgYXQ3FTU9SSPaLBZbAJ7YNsQrTSLxTRd5CjKmHZ LlRNAdif2UBXArCOMuDekyTDAbYDOxBFSxSGbxFKFp IZQ6Mwn1PZQjHEJfMN5YUcTaZPMnXWr8JFKqRSHiYVRtbv1RQWRmGZZyPYZ8GFEbUOGaPIQkXVeqWKHv XXWsTHG0URUvJHNiCA0NDwBkPGAeWxDgKpTdCSCiXKGewo1QAZYoEUMoYXNbAOPoKJErXCBpZNdvYMGc DAZ3Kln1YJRrMFUjUA2TBeByRIFsFeK5YNJmPCFkMS Gysa2NYDEhFOEbGTkrCyVsZEIoTCWiMZbmDSVsZTV6FKTrNHSiETKsAT9CKyPiVSUjHtYdVJClDZAoLN Bwhc2USRZgXSFnIvGrFaNyPGLwDILgTPphYOLfLEB3ZdT1MSKqTHBeVK3UCkYoNDRyIgl3JJQvTUQiOQ Pyai2YDRUdHVNuHUOwTrEwTUSwLEGyCCwiTALlONZ4 YxI7FYCeMNUpJG9VQkByKKOuQkp7JYQbGEAmAUMmai6MSCKaOPVfGCYbCcEnTIAgBVZfTHkdPCIkWDM4 FCI2WFKaTGMoWY9GOvCpTYMoRkg1QZusXWVzBKZdmu7MAAYwKEMuQQY2TMDuNDTaKGVxTYznHVFdPTFg Fzt0ODUbBTNdPY2IXeFsGROmJkA6FmYvGXMaXCXshi 0BLIRmEUEoHBu4YCTfNZGlQZRrKDugTXZgFIBvTUPeIRWiXDCpIP7QMmMvBPRzOjJqDyokZXFnLDCczp 2SXDJrMSTgMJGlUGPeOTQbZRGcHGjxJLTdHGCvJaQhDFBrXKYjOQ5DNiWbONAdWoA3KUajOGGeTFKufi 8ZKZBiFUOfXdM0PVClQKAvETJzMYnnUNVmEDBzGPP6 BAZyHHHmVZ9DGuUkHPOoRyK0DXKsRRCnAWRjwd3WYLDsJZPiFqG4AuPmUSCcBHVeHSiiJULhABVpNxt1 MWEaTIBiRH5KDoYuNLPxVeRbVHVmANOnQUNwwb9ThTRvqKtnvg3MIDbCSw2DdUckMKGnAAuiGh3ovWN8 QHDtIZHGAy9DxbZcSXMaRYXCHCquBLDoTJLdVCRvWK NhGIA2TnB6PhF4XFKrKbFsVLInAOEvJgtdRmA7HHEnZiS3HjQ8AyD5ZwDtVQkqOWVwGEK6JEZzL5EgQN I+PN2eKOo+Yo3Fs2WcvoV1rlWeKCcuUOXwXQ3XMDUTT3XXBl== ID Date Data Source TOTAL PROTEIN,RANDOM URINE 12/03/2020 12:00:00 AM EDT eCW1 ( [facility]) Name Value Range Interpretation Code Description Data Anneliese rce(s) Supporting Document(s) 125.7 0.0-12.0 TOTAL PROTEIN,RANDOM URIN E eCW1 ([facility]) ID Date Data Source CREATININE,RANDOM URINE 12/03/2020 12:00:00 AM EDT eCW1 ([facility]) Name Value Range Interpretation Code Description Data Anneliese rce(s) Supporting Document(s) 119.0 CREATININE,RANDOM URINE eCW1 ( [facility]) ID Date Data Source Basic Metabolic Profile (BMP) 12/03/2020 12:00:00 AM EDT eCW 1 ([facility]) Name Value Range Interpretation Code Description Data Anneliese rce(s) Supporting Document(s) 12 7-18 BLOOD UREA NITROGEN eCW1 ([facility]) 93 70-100 GLUCOSE, FASTING eCW1 ([facility]) > 60.0 >60 GLOMERULAR FILTRATION RATE eCW 1 ([facility]) 139 136-145 SODIUM LEVEL eCW1 ([facility]) 1.37 0.70-1.30 CREATININE FOR GFR eCW1 ([facility]) 9.1 8.5-10.1 CALCIUM LEVEL eCW1 ([facility]) 31 21-32 CARBON DIOXIDE LEVEL eCW1 ([facility]) 103 98-107 CHLORIDE LEVEL eCW1 ([facility]) 3.7 3.5-5.1 POTASSIUM SERUM eCW1 (Replaced by [facility]) ID Date Data Source [id number] 11/10/2020 09:45:32 PM EDT [facility] Name Value Range Interpretation Code Description Data Anneliese rce(s) Supporting Document(s) &PDF [facility] YTAJRf6aMnSVPbQp72/PXWwvUGNzk4DwMEkdGGu0ZMqeTEYdN3QpgOqxZGMIFk8WIRWbFWONFGXfMAFd waW [file] ICAgICAgICAgICAgICAgICAgICAgICAgICAgICAgICAgICAgICAgICAgICAgICANCiAgICAgICAgICAg ICAgICAgICAgICAgICAgICAgICAgICAgICAgICAgIC AgICAgICAgICAgICAgICAgICAgICAgICAgICAgICAgICAgICAgICAgICAgICAgICAgICAgICAgICANCi AgICAgICAgICAgICAgICAgICAgICAgICAgICAgICAgICAgICAgICAgICAgICAgICAgICAgICAgICAgIC AgICAgICAgICAgICAgICAgICAgICAgICAgICAgICAg ICAgICAgICANCiAgICAgICAgICAgICAgICAgICAgICAgICAgICAgICAgICAgICAgICAgICAgICAgICAg ICAgICAgICAgICAgICAgICAgICAgICAgICAgICAgICAgICAgICAgICAgICAgICAgICANCiAgICAgICAg ICAgICAgICAgICAgICAgICAgICAgICAgICAgICAgIC AgICAgICAgICAgICAgICAgICAgICAgICAgICAgICAgICAgICAgICAgICAgICAgICAgICAgICAgICAgIC ANCiAgICAgICAgICAgICAgICAgICAgICAgICAgICAgICAgICAgICAgICAgICAgICAgICAgICAgICAgIC AgICAgICAgICAgICAgICAgICAgICAgICAgICAgICAg ICAgICAgICAgICANCiAgICAgICAgICAgICAgICAgICAgICAgICAgICAgICAgICAgICAgICAgICAgICAg ICAgICAgICAgICAgICAgICAgICAgICAgICAgICAgICAgICAgICAgICAgICAgICAgICAgICANCiAgICAg ICAgICAgICAgICAgICAgICAgICAgICAgICAgICAgIC AgICAgICAgICAgICAgICAgICAgICAgICAgICAgICAgICAgICAgICAgICAgICAgICAgICAgICAgICAgIC AgICANCiAgICAgICAgICAgICAgICAgICAgICAgICAgICAgICAgICAgICAgICAgICAgICAgICAgICAgIC AgICAgICAgICAgICAgICAgICAgICAgICAgICAgICAg ICAgICAgICAgICAgICANCiAgICAgICAgICAgICAgICAgICAgICAgICAgICAgICAgICAgICAgICAgICAg ICAgICAgICAgICAgICAgICAgICAgICAgICAgICAgICAgICAgICAgICAgICAgICAgICAgICAgICANCjw/ bWSpX4szqMKzajX6Z5rfBp1GXb1GKC5hi2MiNRMtAK vvhxMnCddULiBrOLWmNjgAPmr6IEjxHY6NlUTuS2QuV1AxLMhiWT2ZCOZkHFGrnYQoGVFnIDPbXqX3IX UvCOobJI8ZwVHoPJdlRSElYIGaKsWvZWBrRSZxRTPjBS1YRLAwP441xtLrXw9EJg9JIlDcKR7wpp3STA NpPVVbWiwZKsf8KDbwOB9GjKUcV5VmbVTpb7iUWaSg Y0EKUQK0SKDuRs0FKPMhQsPaNYXoBCglYD1wBEKbYKYWeBrasoE8JU7PVV9rhoSaOU3YQbTeQc3bFm6O BlHeZ1LkY3XqOVYmMOWIIDaxSZ4PLWFqGSN8KUKqDWEvWBOVAwYpO64dIM5SY4Spe89hAtC2VLMbVbDf PLtqYB55wDpjgtNksKEkmQdcOP1EIy4+DQplbmRvYm wOHnguLTYLLsUiSIUOFmShGMUkZBVrVPUhQmT6QpEhWg6HPOZeEEVrZBNoWxTyERGpNUOqEDavHHYmNG CrHks5OZKwTWXyZN8ECgNzSPBuBwO9NYEnJPQpDLWtej1WZXGuIFFcECS5GLDvKKUcZPFvHPcvJEXyRB I4TBZdXUPxYSBhRC0WGxQyFXYtXFY7QWEdLQDkONQp uq3KSEDtCUMiQXlzZxOeQAZjNPUwTKidKRDeTML7QAQ8ALWlXPUnOQ7KCkNlMLFmOEN1QOLfEGUkRORp tw8ICLBiWZIeIgC4CLMrIINrCQHtLQxpTGJiUSIxReR8XUIuZPTiEE5DNaKuMBBmWCC1DTNoYQIsGSCe sf6QVXPdIPGdLLBkYKLvKSHeUJMxSUhbLDVaLJP6LQ bcROTnOJScNG4ECjWdTTVuBLAzBOBuYIScJESqby0WIVSxSDMqJPW0VmAaBDBwIMUiVIvqSBCsTEG7Lt QhYBWkLADeEW4JFtNwHJGpSHJ7GJTfNKDuTVVtwo2AHDHjOBHlKfcaHwOhSCPgXCFtYGsnDTUhDZI1Mo v5YAEaROJfFI7HAnCpKNLnKPp4OSEhPPHuXJGpuk2W WUJjZURrUZC0YTGeELOhPYHrWKybLMWpOVA4Juv0VHUpTKAcAD7YNbFwOYArIPf6WbFnUNCeJRJcar9Z EBWqVGHtZPh1VlWcLESbYQJdIDjqVPBzDMS3KtXhFBTaZTYiOZ2LTePzILUkUPl0AErsAISiBQByhk1A WVMhTODfHZK9ZRRwGVLyZJFcPOpsVZJjAYMfSMQ5QE ZoVQWsPS7TXuSoVMXtMbXtVYheNOAvNPXewr2XKGEwXFImWXBqNXWhGEAoKIChHSrjECDrUCQyWJv7FK JeSBKuUW5MUgXiHWGnJmRuMjMvALCkZFGfda9LFJCdLVRuDAI0EyKlXIMjNVZqLXvkKKKiSDNuVwK5BQ YvBQIoWM5PIkAaXJPeNoE3NomgJXPpQWAxfy8EFOSx VDQfHzKyGXWsCLLyQPMjQNumKTSiJZGyXkI1QMDzZQKgHX5FGzKnUUIjYlVyEtOeVZUwTRDvus4KYQRs XGZoIUPlFPVbEUUfTAObRSv2kgMuhNUwRRd7JA5XY8OddlZyAPTEKk2Tu547AGMbOWGkNu7UO7hdEx0p UJHvBXEPOx0LLEy4LAR7HrBzEuRyGMGzVrCxJKQxMD BmW7TgGvTdWSQ3KHI+VEshWYyuNVYcMNH2JuNtEeI9IZV1F9AkTrP0VDT3FXPhKZ3sQXAGUa4+DQpzdG GsdUceELTDRvG6Cql2DVgaXSQCUr1F ID Date Data Source NON CLINICAL NEUROPSYCHOLOGIST CYTOLOGY REQ FOR SERVI 08/11/2020 12:00:00 AM EST eC W1 ([facility]) Name Value Range Interpretation Code Description Data Anneliese rce(s) Supporting Document(s) URINE eCW1 ([facility]) ID Date Data Source URINE CULTURE 08/11/2020 12:00:00 AM EST eCW1 ([facility]) Name Value Range Interpretation Code Description Data Anneliese rce(s) Supporting Document(s) URINE CULTURE eCW1 ([facility]) ID Date Data Source UA URINALYSIS 05/01/2020 12:00:00 AM EST eCW1 ([facility]) Name Value Range Interpretation Code Description Data Anneliese rce(s) Supporting Document(s) UA URINALYSIS eCW1 ([facility]) ID Date Data Source LIPID PANEL (CARDIAC RISK) 05/01/2020 12:00:00 AM EST eCW1 ( [facility]) Name Value Range Interpretation Code Description Data Anneliese rce(s) Supporting Document(s) Cholesterol in LDL [Mass/volume] in Serum or Plasma by calculation 165 <100 LDL CHOLESTEROL eCW1 ([facility]) Triglyceride [Mass/volume] in Serum or Plasma by calculation 493 <150 TRIGLYCERIDES LEVEL eCW1 ([facility]) 6.972 <5 CHOLESTEROL RISK RATIO eCW1 ([facility]) Cholesterol [Moles/volume] in Serum or Plasma 251 <200 CHOLESTEROL LEVEL eCW1 ([facility]) Cholesterol in HDL [Moles/volume] in Serum or Plasma 36 >40 HDL CHOLESTEROL eCW1 ([facility]) 215 NON-HDL-C eCW1 ([facility]) ID Date Data Source Comprehensive Metabolic Profile (CMP) 05/01/2020 12:00:00 AM EST eCW1 ([facility]) Name Value Range Interpretation Code Description Data Anneliese rce(s) Supporting Document(s) 15 7-18 BLOOD UREA NITROGEN eCW1 ([facility]) 1.43 0.70-1.30 CREATININE FOR GFR eCW1 ([facility]) > 60.0 >60 GLOMERULAR FILTRATION RATE eCW 1 ([facility]) 115 70-100 GLUCOSE, FASTING eCW1 ([facility]) 138 136-145 SODIUM LEVEL eCW1 ([facility]) 99 98-107 CHLORIDE LEVEL eCW1 ([facility]) 34 21-32 CARBON DIOXIDE LEVEL eCW1 ([facility]) 3.2 3.5-5.1 POTASSIUM SERUM eCW1 (Replaced by [facility]) 9.3 8.5-10.1 CALCIUM LEVEL eCW1 ([facility]) 61 12-78 ALT/SGPT eCW1 ([facility]) 25 7-37 AST/SGOT eCW1 ([facility]) 72 45-117 ALKALINE PHOSPHATASE eCW1 ([facility]) 0.3 0.2-1.0 BILIRUBIN,TOTAL eCW1 (Replaced by [facility]) 0.9 ALBUMIN/GLOBULIN RATIO eCW1 ([facility]) 7.4 6.4-8.2 TOTAL PROTEIN eCW1 ([facility]) 3.5 3.2-5.2 ALBUMIN eCW1 ([facility]) ID Date Data Source [id number] 04/14/2020 12:00:00 AM EST eCW1 ([facility]) Name Value Range Interpretation Code Description Data Anneliese rce(s) Supporting Document(s) Albumin/Creatinine [Mass Ratio] in Urine 467.0 MALB URINE SIEMENS eCW1 ([facility]) Microalbumin/Creatinine [Ratio] in Urine 1056.5 0.0-30.0 HAYDEN/CREAT RATIO eCW1 ([facility]) Microalbumin/Creatinine [Mass Ratio] in Urine 44.2 CREATININE, URINE eCW1 ([facility]) Procedure Social History Code Duration Value Status Description Data Source(s ) Smoking 04/15/2021 12:00:00 AM EDT Never Smoker completed Never S moker eCW1 ([facility]) Alcohol intake 04/15/2021 12:00:00 AM EDT Lifetime non-drinker (finding) completed Lifetime non-drinker (finding) [facility] Smoking 03/30/2021 12:00:00 AM EDT Never Smoker completed Never S moker eCW1 ([facility]) Smoking 03/24/2021 12:00:00 AM EDT Never Smoker completed Never S moker eCW1 ([facility]) Smoking 03/24/2021 12:00:00 AM EDT Never Smoked Cigarettes com pleted Never Smoked Cigarettes MEDENT ([facility]) Alcohol intake 02/23/2021 12:00:00 AM EDT Lifetime non-drinker (finding) completed Lifetime non-drinker (finding) [facility] Alcohol intake 11/04/2020 12:00:00 AM EDT Lifetime non-drinker (finding) completed Lifetime non-drinker (finding) [facility] Smoking 09/17/2020 12:00:00 AM EDT Never Smoker completed Never S moker eCW1 ([facility]) Smoking 09/05/2020 12:00:00 AM EDT Never Smoker completed Never S moker eCW1 ([facility]) Smoking 08/11/2020 12:00:00 AM EST Never Smoker completed Never S moker eCW1 ([facility]) Smoking 08/11/2020 12:00:00 AM EST Never Smoker completed Never S moker eCW1 ([facility]) Smoking 08/11/2020 12:00:00 AM EST Never Smoker completed Never S moker eCW1 ([facility]) Smoking 08/11/2020 12:00:00 AM EST Never Smoker completed Never S moker eCW1 ([facility]) Smoking 08/11/2020 12:00:00 AM EST Never Smoker completed Never S moker eCW1 ([facility]) Smoking 07/03/2020 12:00:00 AM EST Never Smoker completed Never S moker eCW1 ([facility]) Smoking 07/03/2020 12:00:00 AM EST Never Smoker completed Never S moker eCW1 ([facility]) Smoking 07/03/2020 12:00:00 AM EST Never Smoker completed Never S moker eCW1 ([facility]) Smoking 07/03/2020 12:00:00 AM EST Never Smoker completed Never S moker eCW1 ([facility]) Smoking 07/03/2020 12:00:00 AM EST Never Smoker completed Never S moker eCW1 ([facility]) Smoking 07/03/2020 12:00:00 AM EST Never Smoker completed Never S moker eCW1 ([facility]) Smoking 07/03/2020 12:00:00 AM EST Never Smoker completed Never S moker eCW1 ([facility]) Smoking 07/03/2020 12:00:00 AM EST Never Smoker completed Never S moker eCW1 ([facility]) Smoking 07/03/2020 12:00:00 AM EST Never Smoker completed Never S moker eCW1 ([facility]) Alcohol intake 07/01/2020 12:00:00 AM EST Never completed [facility] Smoking 07/01/2020 12:00:00 AM EST Never smoker completed Never s moker [facility] Alcohol intake 06/03/2020 12:00:00 AM EST Never completed [facility] Smoking 06/03/2020 12:00:00 AM EST Never smoker completed Never s moker [facility] Smoking 06/02/2020 12:00:00 AM EST Never Smoker completed Never S moker eCW1 ([facility]) Smoking 06/02/2020 12:00:00 AM EST Never Smoker completed Never S moker eCW1 ([facility]) Smoking 06/02/2020 12:00:00 AM EST Never Smoker completed Never S moker eCW1 ([facility]) Smoking 06/02/2020 12:00:00 AM EST Never Smoker completed Never S moker eCW1 ([facility]) Tobacco use and exposure 05/07/2020 12:00:00 AM EST Current user co mpleted Current user [facility] Smoking 05/07/2020 12:00:00 AM EST Never smoker completed Never s ncker [facility] Alcohol intake 05/07/2020 12:00:00 AM EST Never completed [facility] Smoking 05/07/2020 12:00:00 AM EST Never smoker completed Never s moker [facility] Smoking 05/01/2020 12:00:00 AM EST Never Smoker completed Never S moker eCW1 ([facility]) Smoking 05/01/2020 12:00:00 AM EST Never Smoker completed Never S moker eCW1 ([facility]) Smoking 04/10/2020 12:00:00 AM EDT Never Smoker completed Never S moker eCW1 ([facility]) Smoking 04/10/2020 12:00:00 AM EDT Never Smoker completed Never S moker eCW1 ([facility]) Smoking 04/10/2020 12:00:00 AM EDT Never Smoker completed Never S moker eCW1 ([facility]) Smoking 04/10/2020 12:00:00 AM EDT Never Smoker completed Never S moker eCW1 ([facility]) Smoking 04/03/2020 12:00:00 AM EDT Never Smoker completed Never S moker eCW1 ([facility]) Smoking 04/03/2020 12:00:00 AM EDT Never Smoker completed Never S moker eCW1 ([facility]) Smoking 04/03/2020 12:00:00 AM EDT Never Smoker completed Never S moker eCW1 ([facility]) Smoking 04/03/2020 12:00:00 AM EDT Never Smoker completed Never S moker eCW1 ([facility]) Vital Signs ID Date Data Source UNK Name Value Range Interpretation Code Description Data Source(s) Systolic blood pressure 152 mm[Hg] 152 mm[Hg] [facility] Diastolic blood pressure 92 mm[Hg] 92 mm[Hg] [facility] Heart rate 69 /min 69 /min [facility] Body height 190.5 cm 190.5 cm [facility] Body weight 120.203 kg 120.203 kg [facility] Body mass index (BMI) [Ratio] 33.12 kg/m2 33.12 kg/m2 [facility] Oxygen saturation in Arterial blood by Pulse oximetry 100 % 100 % [facility] Body weight 261 [lb_av] 261 [lb_av] eCW1 ([facility]) Heart rate 70 /min 70 /min eCW1 (Replaced by [facility]) Respiratory rate 18 /min 18 /min W1 (Counts include 234 beds at the [facility]) Body temperature 96.3 [degF] 96.3 [degF] eCW1 ( [facility]) Systolic blood pressure 140 mm[Hg] 140 mm[Hg] e CW1 ([facility]) Diastolic blood pressure 84 mm[Hg] 84 mm[Hg] eCW1 ([facility]) Body weight 118.39 kg 118.39 kg W1 ([facility]) Body height 74 [in_i] 74 [in_i] eCW1 ([facility]) Body mass index (BMI) [Ratio] 33.51 kg/m2 33.51 kg/m2 [facility] ([facility]) Systolic blood pressure 120 mm[Hg] 120 mm[Hg] M EDENT ([facility]) Diastolic blood pressure 70 mm[Hg] 70 mm[Hg] MEDENT ([facility]) Heart rate 67 /min 67 /min [facility] ([facility]) Oxygen saturation in Arterial blood by Pulse oximetry 98 % 98 % [facility] ([facility]) Body height 75 [in_i] 75 [in_i] [facility] ([facility]) 6'3" Body weight 260.00 [lb_av] 260.00 [lb_av] MEDEN T ([facility]) Body mass index (BMI) [Ratio] 32.5 kg/m2 32.5 k g/m2 [facility] ([facility]) [place] body weight 196 [lb_av] 196 [lb_av] MEDEN T ([facility]) Body weight 117.936 kg 117.936 kg [facility] ([facility]) Body surface area Derived from formula 2.45 m2 2.45 m2 [facility] ([facility]) Body weight 119.75 kg 119.75 kg [facility] Systolic blood pressure 160 mm[Hg] 160 mm[Hg] [facility] Diastolic blood pressure 110 mm[Hg] 110 mm[Hg] [facility] Heart rate 68 /min 68 /min [facility] Body height 190.5 cm 190.5 cm [facility] Body mass index (BMI) [Ratio] 33.00 kg/m2 33.00 kg/m2 [facility] Oxygen saturation in Arterial blood by Pulse oximetry 97 % 97 % [facility] [place] body weight 196 [lb_av] 196 [lb_av] MEDEN T ([facility]) Body weight 119.297 kg 119.297 kg [facility] ([facility]) Body surface area Derived from formula 2.47 m2 2.47 m2 [facility] ([facility]) Systolic blood pressure 142 mm[Hg] 142 mm[Hg] M EDENT ([facility]) Diastolic blood pressure 84 mm[Hg] 84 mm[Hg] [facility] ([facility]) Heart rate 70 /min 70 /min [facility] ([facility]) Oxygen saturation in Arterial blood by Pulse oximetry 98 % 98 % [facility] Body height 75 [in_i] 75 [in_i] [facility] ([facility], ) 6'3" Body weight 263.00 [lb_av] 263.00 [lb_av] MEDEN T ([facility], ) Body mass index (BMI) [Ratio] 32.9 kg/m2 32.9 k g/m2 [facility] Body weight 254.4 [lb_av] 254.4 [lb_av] eCW1 ([facility]) Body height 74 [in_i] 74 [in_i] eCW1 ([facility]) Body mass index (BMI) [Ratio] 32.66 kg/m2 32.66 kg/m2 W1 ([facility]) Heart rate 75 /min 75 /min eCW1 (Replaced by [facility]) Respiratory rate 18 /min 18 /min eCW1 (Counts include 234 beds at the [facility]) Body temperature 97.5 [degF] 97.5 [degF] eCW1 ( [facility]) Systolic blood pressure 130 mm[Hg] 130 mm[Hg] e CW1 ([facility]) Diastolic blood pressure 78 mm[Hg] 78 mm[Hg] eCW1 ([facility]) Diastolic blood pressure 70 mm[Hg] 70 mm[Hg] [facility] Systolic blood pressure 136 mm[Hg] 136 mm[Hg] [facility] Oxygen saturation in Arterial blood by Pulse oximetry 98 % 98 % [facility] Heart rate 76 /min 76 /min [facility] Body weight 116.121 kg 116.121 kg [facility] Body mass index (BMI) [Ratio] 32.00 kg/m2 32.00 kg/m2 [facility] Body weight 255 [lb_av] 255 [lb_av] eCW1 ([facility]) Body height 74 [in_i] 74 [in_i] eCW1 ([facility]) Body mass index (BMI) [Ratio] 32.74 kg/m2 32.74 kg/m2 eCW1 ([facility]) Heart rate 88 /min 88 /min eCW1 (Replaced by [facility]) Respiratory rate 18 /min 18 /min eCW1 (Counts include 234 beds at the [facility]) Body temperature 97.5 [degF] 97.5 [degF] eCW1 ( [facility]) Systolic blood pressure 156 mm[Hg] 156 mm[Hg] e CW1 ([facility]) Diastolic blood pressure 113 mm[Hg] 113 mm[Hg] eCW1 ([facility]) Heart rate 118 /min 118 /min eCW1 (Replaced by [facility]) Body mass index (BMI) [Ratio] 32.99 kg/m2 32.99 kg/m2 eCW1 ([facility]) Body temperature 96.4 [degF] 96.4 [degF] eCW1 ( [facility]) Systolic blood pressure 144 mm[Hg] 144 mm[Hg] e CW1 ([facility]) Diastolic blood pressure 102 mm[Hg] 102 mm[Hg] eCW1 ([facility]) Body weight 257 [lb_av] 257 [lb_av] eCW1 ([facility]) Body height 74 [in_i] 74 [in_i] eCW1 ([facility]) Respiratory rate 18 /min 18 /min eCW1 (Counts include 234 beds at the [facility]) Body weight 254 [lb_av] 254 [lb_av] eCW1 ([facility]) Body height 74 [in_i] 74 [in_i] eCW1 ([facility]) Body mass index (BMI) [Ratio] 32.61 kg/m2 32.61 kg/m2 eCW1 ([facility]) Heart rate 73 /min 73 /min eCW1 (Replaced by [facility]) Respiratory rate 18 /min 18 /min eCW1 (Counts include 234 beds at the [facility]) Body temperature 97.4 [degF] 97.4 [degF] eCW1 ( [facility]) Systolic blood pressure 126 mm[Hg] 126 mm[Hg] e CW1 ([facility]) Diastolic blood pressure 78 mm[Hg] 78 mm[Hg] eCW1 ([facility]) Systolic blood pressure 147 mm[Hg] 147 mm[Hg] [facility] Diastolic blood pressure 100 mm[Hg] 100 mm[Hg] [facility] Heart rate 87 /min 87 /min [facility] Body height 190.5 cm 190.5 cm [facility] Body weight 117.482 kg 117.482 kg [facility] Oxygen saturation in Arterial blood by Pulse oximetry 98 % 98 % [facility] Body mass index (BMI) [Ratio] 32.37 kg/m2 32.37 kg/m2 [facility] [place] body weight 196 [lb_av] 196 [lb_av] MEDEN T ([facility], ) Body mass index (BMI) [Ratio] 32.0 kg/m2 32.0 k g/m2 [facility] ([facility], ) Body height 75 [in_i] 75 [in_i] [facility] ([facility], ) 6'3" Body weight 116.292 kg 116.292 kg [facility] ([facility]) Body surface area Derived from formula 2.44 m2 2.44 m2 [facility] ([facility]) Body weight 256.38 [lb_av] 256.38 [lb_av] MEDEN T ([facility], ) Heart rate 74 /min 74 /min [facility] ([facility]) Systolic blood pressure 171 mm[Hg] 171 mm[Hg] M EDENT ([facility]) Diastolic blood pressure 101 mm[Hg] 101 mm[Hg] [facility] ([facility]) Body height 75 [in_i] 75 [[facility]_i] [facility] 6'3" Body weight 256.38 [lb_av] 256.38 [lb_av] MEDEN T ([facility]) Body mass index (BMI) [Ratio] 32.0 kg/m2 32.0 k g/m2 MED[facility] ([facility], ) [place] body weight 196 [lb_av] 196 [lb_av] MEDEN T ([facility], ) Body weight 116.292 kg 116.292 kg [facility] ([facility], ) Body surface area Derived from formula 2.44 m2 2.44 m2 MED[facility] ([facility], ) Body temperature 97.7 [degF] 97.7 [degF] MED[facility] ([facility]) Systolic blood pressure 150 mm[Hg] 150 mm[Hg] [facility] Diastolic blood pressure 100 mm[Hg] 100 mm[Hg] [facility] Heart rate 96 /min 96 /min [facility] Body weight 117.935 kg 117.935 kg [facility] Body mass index (BMI) [Ratio] 32.50 kg/m2 32.50 kg/m2 [facility] Oxygen saturation in Arterial blood by Pulse oximetry 98 % 98 % [facility] Systolic blood pressure 140 mm[Hg] 140 mm[Hg] [facility] Diastolic blood pressure 80 mm[Hg] 80 mm[Hg] [facility] Heart rate 75 /min 75 /min [facility] Body height 190.5 cm 190.5 cm [facility] Body weight 117.482 kg 117.482 kg [facility] Body mass index (BMI) [Ratio] 32.37 kg/m2 32.37 kg/m2 [facility] Oxygen saturation in Arterial blood by Pulse oximetry 98 % 98 % [facility] Body weight 255 [lb_av] 255 [lb_av] W1 ([facility]) Body height 74 [in_i] 74 [in_i] eCW1 ([facility]) Body mass index (BMI) [Ratio] 32.74 kg/m2 32.74 kg/m2 [facility] ([facility]) Heart rate 67 /min 67 /min W1 (Replaced by [facility]) Respiratory rate 18 /min 18 /min eCW1 (Counts include 234 beds at the [facility]) Body temperature 97.1 [degF] 97.1 [degF] eCW1 ( [facility]) Systolic blood pressure 128 mm[Hg] 128 mm[Hg] e CW1 ([facility]) Diastolic blood pressure 68 mm[Hg] 68 mm[Hg] eCW1 ([facility]) Systolic blood pressure 132 mm[Hg] 132 mm[Hg] [facility] Diastolic blood pressure 78 mm[Hg] 78 mm[Hg] [facility] Heart rate 78 /min 78 /min [facility] Body height 190.5 cm 190.5 cm [facility] Body weight 115.214 kg 115.214 kg [facility] Body mass index (BMI) [Ratio] 31.75 kg/m2 31.75 kg/m2 [facility] Oxygen saturation in Arterial blood by Pulse oximetry 97 % 97 % [facility] Heart rate 85 /min 85 /min eCW1 (Replaced by [facility]) Body weight 253 [lb_av] 253 [lb_av] eCW1 ([facility]) Body height 74 [in_i] 74 [in_i] eCW1 ([facility]) Body mass index (BMI) [Ratio] 32.48 kg/m2 32.48 kg/m2 eCW1 ([facility]) Systolic blood pressure 178 mm[Hg] 178 mm[Hg] e CW1 ([facility]) Diastolic blood pressure 130 mm[Hg] 130 mm[Hg] eCW1 ([facility]) Body temperature 97.0 [degF] 97.0 [degF] eCW1 ( [facility]) Respiratory rate 18 /min 18 /min eCW1 (Counts include 234 beds at the [facility]) Systolic blood pressure 145 mm[Hg] 145 mm[Hg] [facility] Diastolic blood pressure 86 mm[Hg] 86 mm[Hg] [facility] Body weight 115.214 kg 115.214 kg [facility] Heart rate 78 /min 78 /min [facility] Body height 190.5 cm 190.5 cm [facility] Body mass index (BMI) [Ratio] 31.75 kg/m2 31.75 kg/m2 [facility] Oxygen saturation in Arterial blood by Pulse oximetry 99 % 99 % [facility] Body temperature 97.1 [degF] 97.1 [degF] [facility] ([facility] ) Body weight 261 [lb_av] 261 [lb_av] eCW1 ([facility]) Body height 74 [in_i] 74 [in_i] eCW1 ([facility]) Body mass index (BMI) [Ratio] 33.51 kg/m2 33.51 kg/m2 eCW1 ([facility]) Heart rate 86 /min 86 /min eCW1 (Replaced by [facility]) Respiratory rate 20 /min 20 /min eCW1 (Counts include 234 beds at the [facility]) Body temperature 96.4 [degF] 96.4 [degF] eCW1 ( [facility]) Systolic blood pressure 134 mm[Hg] 134 mm[Hg] e CW1 ([facility]) Diastolic blood pressure 84 mm[Hg] 84 mm[Hg] eCW1 ([facility]) Body weight 258.2 [lb_av] 258.2 [lb_av] eCW1 ([facility]) Body height 74 [in_i] 74 [in_i] eCW1 ([facility]) Body mass index (BMI) [Ratio] 33.15 kg/m2 33.15 kg/m2 W1 ([facility]) Heart rate 73 /min 73 /min eCW1 (Replaced by [facility]) Respiratory rate 18 /min 18 /min eCW1 (Counts include 234 beds at the [facility]) Body temperature 97.1 [degF] 97.1 [degF] eCW1 ( [facility]) Systolic blood pressure 142 mm[Hg] 142 mm[Hg] e CW1 ([facility]) Diastolic blood pressure 82 mm[Hg] 82 mm[Hg] eCW1 ([facility]) Body weight 261 [lb_av] 261 [lb_av] eCW1 ([facility]) Body height 74 [in_i] 74 [in_i] eCW1 ([facility]) Body mass index (BMI) [Ratio] 33.51 kg/m2 33.51 kg/m2 eCW1 ([facility]) Heart rate 80 /min 80 /min eCW1 (Replaced by [facility]) Respiratory rate 19 /min 19 /min eCW1 (Counts include 234 beds at the [facility]) Body temperature 96.0 [degF] 96.0 [degF] eCW1 ( [facility]) Systolic blood pressure 176 mm[Hg] 176 mm[Hg] e CW1 ([facility]) Diastolic blood pressure 108 mm[Hg] 108 mm[Hg] eCW1 ([facility]) Body weight 262.4 [lb_av] 262.4 [lb_av] eCW1 ([facility]) Body height 74 [in_i] 74 [in_i] eCW1 ([facility]) Body mass index (BMI) [Ratio] 33.69 kg/m2 33.69 kg/m2 eCW1 ([facility]) Heart rate 85 /min 85 /min eCW1 (Replaced by [facility]) Respiratory rate 18 /min 18 /min eCW1 (Counts include 234 beds at the [facility]) Body temperature 96.7 [degF] 96.7 [degF] eCW1 ( [facility]) Systolic blood pressure 144 mm[Hg] 144 mm[Hg] e CW1 ([facility]) Diastolic blood pressure 90 mm[Hg] 90 mm[Hg] eCW1 ([facility]) Patient Treatment Plan of Care Planned Activity Planned Date Details Description Data Source (s) Lisinopril 30 MG Oral Tablet 04/15/2021 12:00:00 AM EDT [facility] Hydrochlorothiazide 25 MG Oral Tablet 04/04/2021 12:00:00 AM EDT [facility] Aspirin 81 MG Delayed Release Oral Tablet 02/23/2021 12:00:00 AM ED T [facility] Lisinopril 20 MG Oral Tablet 02/23/2021 12:00:00 AM EDT [facility] Lisinopril 40 MG Oral Tablet 11/04/2020 12:00:00 AM EDT [facility] Rosuvastatin calcium 10 MG Oral Tablet 09/22/2020 12:00:00 AM EDT [facility] Docusate Sodium 50 MG / sennosides, HALF-WAY 8.6 MG Oral Ta blet [SENOKOT-S] 09/05/2020 12:00:00 AM EDT eCW1 ([facility]) Docusate Sodium 50 MG / sennosides, HALF-WAY 8.6 MG Oral Ta blet [SENOKOT-S] 09/05/2020 12:00:00 AM EDT eCW1 ([facility]) Docusate Sodium 50 MG / sennosides, HALF-WAY 8.6 MG Oral Ta blet [SENOKOT-S] 09/05/2020 12:00:00 AM EDT eCW1 ([facility]) Rosuvastatin calcium 10 MG Oral Tablet 09/01/2020 12:00:00 AM EDT [facility] Cephalexin 500 MG Oral Capsule 08/11/2020 12:00:00 AM EST eCW1 ([facility]) Cephalexin 500 MG Oral Capsule 08/11/2020 12:00:00 AM EST eCW1 ([facility]) Cephalexin 500 MG Oral Capsule 08/11/2020 12:00:00 AM EST eCW1 ([facility]) Cephalexin 500 MG Oral Capsule 08/11/2020 12:00:00 AM EST eCW1 ([facility]) Cephalexin 500 MG Oral Capsule 08/11/2020 12:00:00 AM EST eCW1 ([facility]) Hydrochlorothiazide 25 MG Oral Tablet 08/07/2020 12:00:00 AM EST [facility] Rosuvastatin calcium 10 MG Oral Tablet 07/01/2020 12:00:00 AM EST [facility] Polyvinyl Alcohol 0.014 ML/ML Ophthalmic Solution 06/17/2020 12: 00:00 AM EST [facility] Lidocaine 5 % 06/12/2020 12:00:00 AM EST eCW1 ([facility]) Lidocaine 5 % 06/12/2020 12:00:00 AM EST eCW1 ([facility]) Lidocaine 5 % 06/12/2020 12:00:00 AM EST eCW1 ([facility]) Lidocaine 5 % 06/12/2020 12:00:00 AM EST eCW1 ([facility]) Rosuvastatin calcium 10 MG Oral Tablet 06/03/2020 12:00:00 AM EST [facility] 24 HR Diltiazem Hydrochloride 180 MG Extended Release Oral Capsule 05/22/2020 12:00:00 AM EST [facility] Lisinopril 40 MG Oral Tablet 05/22/2020 12:00:00 AM EST [facility] Lisinopril 30 MG Oral Tablet 05/13/2020 12:00:00 AM EST eCW1 ([facility]) 24 HR Diltiazem Hydrochloride 180 MG Extended Release Oral Capsule 05/07/2020 12:00:00 AM EST [facility] atorvastatin 40 MG Oral Tablet 05/01/2020 12:00:00 AM EST eCW1 ([facility]) atorvastatin 40 MG Oral Tablet 05/01/2020 12:00:00 AM EST eCW1 ([facility]) Lisinopril 20 MG Oral Tablet 05/01/2020 12:00:00 AM EST eCW1 ([facility]) atorvastatin 40 MG Oral Tablet 05/01/2020 12:00:00 AM EST eCW1 ([facility]) Lisinopril 20 MG Oral Tablet 05/01/2020 12:00:00 AM EST eCW1 ([facility]) Lisinopril 10 MG Oral Tablet 04/22/2020 12:00:00 AM EST [facility] Lisinopril 10 MG Oral Tablet 04/21/2020 12:00:00 AM EST eCW1 ([facility]) Isosorbide Dinitrate 30 MG Oral Tablet 04/21/2020 12:00:00 AM EST eCW1 ([facility]) Lisinopril 10 MG Oral Tablet 04/21/2020 12:00:00 AM EST eCW1 ([facility]) Isosorbide Dinitrate 30 MG Oral Tablet 04/21/2020 12:00:00 AM EST eCW1 ([facility]) Isosorbide Dinitrate 30 MG Oral Tablet 04/21/2020 12:00:00 AM EST eCW1 ([facility]) Isosorbide Dinitrate 30 MG Oral Tablet 04/21/2020 12:00:00 AM EST eCW1 ([facility]) Nitroglycerin 0.3 MG Sublingual Tablet 04/09/2020 12:00:00 AM EDT [facility] Aspirin 81 MG Delayed Release Oral Tablet 04/09/2020 12:00:00 AM ED T [facility] Hydrochlorothiazide 25 MG Oral Tablet 04/09/2020 12:00:00 AM EDT [facility] atorvastatin 40 MG Oral Tablet 04/08/2020 12:00:00 AM EDT [facility] Nitroglycerin 0.3 MG Sublingual Tablet 04/08/2020 12:00:00 AM EDT eCW1 ([facility]) Nitroglycerin 0.3 MG Sublingual Tablet 04/08/2020 12:00:00 AM EDT eCW1 ([facility]) Nitroglycerin 0.3 MG Sublingual Tablet 04/08/2020 12:00:00 AM EDT eCW1 ([facility]) Nitroglycerin 0.3 MG Sublingual Tablet 04/08/2020 12:00:00 AM EDT eCW1 ([facility]) Nitroglycerin 0.3 MG Sublingual Tablet 04/08/2020 12:00:00 AM EDT eCW1 ([facility]) pregabalin 150 MG Oral Capsule 04/03/2020 12:00:00 AM EDT [facility] meloxicam 15 MG Oral Tablet 04/03/2020 12:00:00 AM EDT [facility] Aspirin 81 MG Delayed Release Oral Tablet 04/03/2020 12:00:00 AM ED T eCW1 ([facility]) atorvastatin 80 MG Oral Tablet 04/03/2020 12:00:00 AM EDT eCW1 ([facility]) Aspirin 81 MG Delayed Release Oral Tablet 04/03/2020 12:00:00 AM ED T eCW1 ([facility]) Hydrochlorothiazide 25 MG Oral Tablet 04/03/2020 12:00:00 AM EDT eCW1 ([facility]) Aspirin 81 MG Delayed Release Oral Tablet 04/03/2020 12:00:00 AM ED T eCW1 ([facility]) atorvastatin 80 MG Oral Tablet 04/03/2020 12:00:00 AM EDT eCW1 ([facility]) Hydrochlorothiazide 25 MG Oral Tablet 04/03/2020 12:00:00 AM EDT eCW1 ([facility]) Aspirin 81 MG Delayed Release Oral Tablet 04/03/2020 12:00:00 AM ED T eCW1 ([facility]) atorvastatin 80 MG Oral Tablet 04/03/2020 12:00:00 AM EDT eCW1 ([facility]) Hydrochlorothiazide 25 MG Oral Tablet 04/03/2020 12:00:00 AM EDT eCW1 ([facility]) Aspirin 81 MG Delayed Release Oral Tablet 04/03/2020 12:00:00 AM ED T eCW1 ([facility]) atorvastatin 80 MG Oral Tablet 04/03/2020 12:00:00 AM EDT eCW1 ([facility]) Hydrochlorothiazide 25 MG Oral Tablet 04/03/2020 12:00:00 AM EDT eCW1 ([facility]) atorvastatin 80 MG Oral Tablet 04/03/2020 12:00:00 AM EDT eCW1 ([facility]) Clonidine Hydrochloride 0.1 MG Oral Tablet 04/03/2020 12:00:00 AM E DT eCW1 ([facility]) Hydrochlorothiazide 25 MG Oral Tablet 04/03/2020 12:00:00 AM EDT eCW1 ([facility]) Isosorbide Dinitrate 30 MG Oral Tablet 04/03/2020 12:00:00 AM EDT eCW1 ([facility]) Aspirin 81 MG Delayed Release Oral Tablet 04/03/2020 12:00:00 AM ED T eCW1 ([facility]) atorvastatin 80 MG Oral Tablet 04/03/2020 12:00:00 AM EDT eCW1 ([facility]) Clonidine Hydrochloride 0.1 MG Oral Tablet 04/03/2020 12:00:00 AM E DT eCW1 ([facility]) Hydrochlorothiazide 25 MG Oral Tablet 04/03/2020 12:00:00 AM EDT eCW1 ([facility]) Isosorbide Dinitrate 30 MG Oral Tablet 04/03/2020 12:00:00 AM EDT eCW1 ([facility]) Aspirin 81 MG Delayed Release Oral Tablet 04/03/2020 12:00:00 AM ED T eCW1 ([facility]) atorvastatin 80 MG Oral Tablet 04/03/2020 12:00:00 AM EDT eCW1 ([facility]) Clonidine Hydrochloride 0.1 MG Oral Tablet 04/03/2020 12:00:00 AM E DT eCW1 ([facility]) Hydrochlorothiazide 25 MG Oral Tablet 04/03/2020 12:00:00 AM EDT eCW1 ([facility]) Isosorbide Dinitrate 30 MG Oral Tablet 04/03/2020 12:00:00 AM EDT eCW1 ([facility]) Aspirin 81 MG Delayed Release Oral Tablet 04/03/2020 12:00:00 AM ED T eCW1 ([facility]) Aspirin 81 MG Delayed Release Oral Tablet 04/03/2020 12:00:00 AM ED T eCW1 ([facility]) Hydrochlorothiazide 25 MG Oral Tablet 04/03/2020 12:00:00 AM EDT eCW1 ([facility]) Aspirin 81 MG Delayed Release Oral Tablet 04/03/2020 12:00:00 AM ED T eCW1 ([facility]) Hydrochlorothiazide 25 MG Oral Tablet 04/03/2020 12:00:00 AM EDT eCW1 ([facility]) albuterol (PROVENTIL HFA;VENTOLIN HFA) 108 (90 Base) M CG/ACT inhaler 03/27/2020 12:00:00 AM EDT [facility] Albuterol Sulfate HFA 108 (90 Base) MCG/ACT 03/27/2020 12:00:00 AM EDT eCW1 ([facility]) Albuterol Sulfate HFA 108 (90 Base) MCG/ACT 03/27/2020 12:00:00 AM EDT eCW1 ([facility]) Albuterol Sulfate HFA 108 (90 Base) MCG/ACT 03/27/2020 12:00:00 AM EDT eCW1 ([facility]) Omeprazole 20 MG Delayed Release Oral Capsule 02/07/2020 12:00:00 A M EDT [facility] Lisinopril 20 MG Oral Tablet [facility] Diltiazem Hydrochloride 30 MG Oral Tablet [facility]
[2021-04-23] MEDS ORDERED: ONDANSETRON 4MG/2ML VIAL IV ONE (02:20)
[2021-04-23] MEDS ORDERED: NS 1,000 ML IV ONE (02:20)
[2021-04-23] MEDS ORDERED: MORPHINE 4 MG/ML 1ML VIAL/SYRINGE (J2270) IV ONE (02:20)
[2021-04-23 02:38] LABS: BASO % 0.6 % (0.0-1.0); EOS # 0.1 10^3/uL (0.0-0.5); EOS % 0.8 % (0.0-3.0); HEMOGLOBIN 16.3 g/dl (13.5-17.5); LYMPH % 15.6 % (24.0-44.0); MEAN CORPUSCULAR HEMOGLOBIN 29.5 pg (27.0-33.0); MEAN CORPUSCULAR HGB CONC 35.4 g/dl (32.0-36.5); MEAN CORPUSCULAR VOLUME 83.2 fl (80.0-96.0); MONO # 0.8 10^3/uL (0.0-0.8); MONO % 13.1 % (2.0-8.0); NEUTROPHILS # 4.3 10^3/uL (1.5-8.5); NEUTROPHILS % 69.6 % (36.0-66.0); PLATELET COUNT, AUTOMATED 126 10^3/uL (150-450); RED BLOOD COUNT 5.53 10^6/uL (4.30-6.10); WHITE BLOOD COUNT 6.2 10^3/uL (4.0-10.0)
[2021-04-23 03:07] LABS: ALBUMIN 3.1 GM/DL (3.2-5.2); ALT/SGPT 34 U/L (12-78); BILIRUBIN,DIRECT 0.1 MG/DL (0.0-0.2); BILIRUBIN,TOTAL 0.4 MG/DL (0.2-1.0); BLOOD UREA NITROGEN 16 MG/DL (7-18); CALCIUM LEVEL 8.5 MG/DL (8.5-10.1); CARBON DIOXIDE LEVEL 32 MEQ/L (21-32); CHLORIDE LEVEL 99 MEQ/L (98-107); CK-MB VALUE MASS < 1.0 NG/ML (<3.6); CPK CREATINE PHOSPHOKINASE 239 U/L (39-308); CREATININE FOR GFR 2.17 MG/DL (0.70-1.30); GLOMERULAR FILTRATION RATE 43.2 (>60); GLUCOSE, FASTING 134 MG/DL (70-100); LIPASE 227 U/L (73-393); MB/CK RELATIVE INDEX 0.42 (< OR =4); POTASSIUM SERUM 3.4 MEQ/L (3.5-5.1); SODIUM LEVEL 137 MEQ/L (136-145); TOTAL PROTEIN 6.6 GM/DL (6.4-8.2); TROPONIN I < 0.02 NG/ML (< 0.10)
--- OUTSIDE RECORDS SUMMARY | 2021-04-23 04:26 | CCD ---
Author Author [facility] Organization [facility] Address Unknown Phone Unavailable Support Name Relationship Address Phone HOMARANNEMA Next Of Kin [address] [place] [address] ST Next Of Kin Unknown Unavailable ALLIED [facility] Next Of Kin [address] [facility] [address] [place] [address] JOYA GRAF Next Of [facility] [address] [place] [address] [facility] [place] [address] SECURITY Next Of [address] [address] ICU SECURITY PRIVATE INVESTG Next Of [facility] [address] [place] [address] ICU SECURITY PRIVATE INVESTGATION Next Of [facility] [address] [place] [address] AUGUSTIN ODONNELL Next Of [facility] [address] [place] [address] Dille DDS, Noni Next Of [facility] [address] [place], [place] [id number] Dille DDS, Noni Next Of [facility] [address] [place] [address] [employer]OUND Next Of [address] [address] MARELY GRAF Next Of [facility] [address] [place] [address] UE Next Of Kin Unknown Unavailable SECURITAS Next Of Kin [address] [place] [address] SECRURITAS Next Of Kin [address] [facility] [place] [address] ТАТЬЯНА DONAHUE Next Of Kin [address] [place] [address] MARY DONAHUE Next Of Kin [address] [place] [address] Anne Odonnellma RONY [address] [place] [address] [phone] Care Team Providers Care Loom Operator Name Role Phone Jeremiah Mccormack MD Unavailable [...] Unavailable Easton, Jeremiah Forbes MD Unavailable Unavailable Strang, Jeremiah Forbes MD Unavailable Unavailable Strang, Jeremiah Forbes MD Unavailable Unavailable Strang, Jeremiah Forbes MD Unavailable Unavailable Easton, Jeremiah Forbes MD Unavailable Unavailable HANK, HUY RICK COMMERCIAL SINGER-C Unavailable Unavailable HANK, HUY RICK COMMERCIAL SINGER-C Unavailable Unavailable HANK, HUY RICK COMMERCIAL SINGER-C Unavailable Unavailable HANK, HUY RICK COMMERCIAL SINGER-C Unavailable Unavailable HANK, HUY RICK COMMERCIAL SINGER-C Unavailable Unavailable HANK, HUY RICK COMMERCIAL SINGER-C Unavailable Unavailable HANK, HUY RICK COMMERCIAL SINGER-C Unavailable Unavailable HANK, HUY RICK COMMERCIAL SINGER-C Unavailable Unavailable HANK, HUY RICK COMMERCIAL SINGER-C Unavailable Unavailable HANK, HUY RICK COMMERCIAL SINGER-C Unavailable Unavailable HANK, HUY RICK COMMERCIAL SINGER-C Unavailable Unavailable HANK, HUY RICK COMMERCIAL SINGER-C Unavailable Unavailable HANK, HUY RICK COMMERCIAL SINGER-C Unavailable Unavailable HANK, HUY RICK COMMERCIAL SINGER-C Unavailable Unavailable HANK, HUY RICK COMMERCIAL SINGER-C Unavailable Unavailable HANK, HUY RICK COMMERCIAL SINGER-C Unavailable Unavailable HANK, HUY RICK COMMERCIAL SINGER-C Unavailable Unavailable Jose Maria, V PASQUALE PA-C Unavailable Unavailable Lamona, V PASQUALE PA-C Unavailable Unavailable Lamona, V PASQUALE PA-C Unavailable Unavailable Lamona, V PASQUALE PA-C Unavailable Unavailable Jose Maria, V PASQUALE PA-C Unavailable Unavailable Jose Maria, V PASQUALE PA-C Unavailable Unavailable Jose Maria, V PASQUALE PA-C Unavailable Unavailable Lamona, V PASQUALE PA-C Unavailable Unavailable Lamona, V PASQUALE PA-C Unavailable Unavailable Lamona, V PASQUALE PA-C Unavailable Unavailable Lamona, V PASQUALE PA-C Unavailable Unavailable Jose Maria, V PASQUALE PA-C Unavailable Unavailable Lamona, V PASQUALE PA-C Unavailable Unavailable Jose Maria, [...] is protected by Article 27-F of the [facility] Public Health law. If you continue you may have access to information: Regarding HIV / AIDS; Provided by facilities licensed or operated by the [facility] Office of Mental Health; or Provided by the [facility] Office for People With Developmental Disabilities. If such information is present, then the following [facility] mandated warning applies: This information has [...] law may result in a fine or mcc sentence or both. A general authorization for the release of medical or other information is NOT sufficient authorization for further disc losure. Allergies and Adverse Reactions Type Description Substance Reaction Status Data Source(s ) Propensity to adverse reactions TAMSULOSIN tamsulosin Shortness Of Breath High Active [facility] High Propensity to adverse reactions OXYCODONE Oxycodone Acti ve [facility] Propensity to adverse reactions METHOCARBAMOL Methocarbamol Palpita tions Low Active [facility] Low Family History Family Member Name Family Member Gender Family Member Status Date o f Status Description Data Source(s) Unknown Male Problem MEDENT ([facility]) Encounters Encounter Providers Location Date Indications Data Source(s ) Outpatient Attender: PASQUALE GARCIACReferrer: Heriberto VANN.RACHEL-SJP.RACHEL 04/15/2021 12:00:00 AM EDT - 04/15/2021 03:44:18 PM EDT [facility] Unknown [address] [facility] [address] 04/15/2021 12:00:00 AM EDT eCW1 ([facility]) Outpatient [address] [facility] [address] 03/30/2021 12:00:00 AM EDT eCW1 ([facility]) Outpatient Attender: RICK Hand/[place]/Ivan/R eindl 03/24/2021 03:00:00 PM EDT [facility] ([facility]) Unknown [address] [facility] [address] 03/24/2021 12:00:00 AM EDT eCW1 ([facility]) Outpatient Attender: PASQUALE BREWER-SJP.RACHEL 12:00:00 AM EDT - 02/23/2021 07:57:20 AM EDT [facility] Outpatient Attender: RICK Hand/Roque/Ivan/R eindl 02/20/2021 08:00:00 AM EDT MED[facility] ([facility]) Outpatient Referrer: PASQUALE LEERACHEL-SJP.RACHEL 12:00:00 AM EDT [facility] Outpatient [address] [facility] [address] 12/03/2020 12:00:00 AM EDT eCW1 ([facility]) Unknown [address] [facility] [address] 11/13/2020 12:00:00 AM EDT eCW1 ([facility]) Outpatient Referrer: PASQUALE LEECT-SJP.SYR 12:00:00 AM EDT [facility] [address] [facility] [address] 11/06/2020 12:00:00 AM EDT eCW1 ([facility]) Outpatient Attender: PASQUALE LEERACHEL-SJP.RACHEL 03:10:04 PM EDT - 11/04/2020 04:32:54 PM EDT [facility] Unknown [address] [facility] [address] 10/08/2020 12:00:00 AM EDT eCW1 ([facility]) Outpatient [address] [facility] [address] 09/17/2020 12:00:00 AM EDT eCW1 ([facility]) Unknown [address] [facility] [address] 09/12/2020 12:00:00 AM EDT eCW1 ([facility]) Outpatient [address] [facility] [place] [address] 09/05/2020 12:00:00 AM EDT eCW1 ([facility]) Unknown [address] [facility] [place] [address] 08/27/2020 12:00:00 AM EDT eCW1 ([facility]) Unknown [address] [facility] [address] 08/26/2020 12:00:00 AM EDT eCW1 ([facility]) Unknown [address] [facility] [place] [address] 08/14/2020 12:00:00 AM EST eCW1 ([facility]) Outpatient [address] [facility] [address] 08/11/2020 12:00:00 AM EST eCW1 ([facility]) Outpatient Attender: PASQUALE VANN.RACHEL-SJP.RACHEL 12:00:00 AM EST [facility] Unknown [address] [facility] [address] 08/07/2020 12:00:00 AM EST eCW1 ([facility]) Unknown [address] [facility] [address] 08/01/2020 12:00:00 AM EST eCW1 ([facility]) Unknown [address] [facility] [place] [address] 08/01/2020 12:00:00 AM EST eCW1 ([facility]) Unknown [address] [facility] [address] 07/31/2020 12:00:00 AM EST eCW1 ([facility]) Outpatient Attender: ELEANOR ESIPNOSA Physical Therapy 07/14 01:30:00 PM EST MED[facility] ([facility]) Outpatient Attender: Marla Hand/Roque/Ivan/Amanda read 07/22/2020 10:00:00 AM EST MEDENT ([facility]) Outpatient Attender: ELEANOR ESPINOSA Physical Therapy 06/14 01:45:00 PM EST MED[facility] ([facility]) Outpatient Attender: PASQUALE VANN.RACHEL-SJP.RACHEL 12:00:00 AM EST - 07/01/2020 11:21:21 AM EST [facility] Unknown [address] [facility] [address] 06/12/2020 12:00:00 AM EST eCW1 ([facility]) Unknown [address] [facility] [address] 06/11/2020 12:00:00 AM EST eCW1 ([facility]) Unknown [address] [facility] [address] 06/09/2020 12:00:00 AM EST eCW1 ([facility]) Outpatient Attender: PASQUALE LEERACHEL-SJP.RACHEL 12:00:00 AM EST - 06/03/2020 04:22:22 PM EST [facility] Outpatient [address] [facility] [address] 06/02/2020 12:00:00 AM EST eCW1 ([facility]) OFFICE OUTPATIENT VISIT 15 MINUTES Attender: ELEANOR ESPINOSA Ph ysical Therapy 05/28/2020 12:30:00 PM EST [facility] ([facility]) Outpatient Attender: PASQUALE VANN.RACHEL-SJP.RACHEL 03/2020 12:00:00 AM EST - 05/22/2020 04:45:49 PM EST [facility] Outpatient [address] [facility] [address] 05/13/2020 12:00:00 AM EST eCW1 ([facility]) Outpatient Attender: Tata LEERACHEL-SJP.RACHEL 04/14 12:00:00 AM EST - 05/07/2020 03:53:02 PM EST [facility] OFFICE OUTPATIENT VISIT 15 MINUTES Attender: ELEANOR ESPINOSA Ph ysical Therapy 05/06/2020 02:45:00 PM EST [facility] ([facility]) Outpatient [address] [facility] [place] [address] 05/01/2020 12:00:00 AM EST eCW1 ([facility]) Unknown [address] [facility] [place] [address] 04/22/2020 12:00:00 AM EST eCW1 ([facility]) Unknown [address] [facility] [place] [address] 04/21/2020 12:00:00 AM EST eCW1 ([facility]) Unknown [address] [facility] [place] [address] 04/21/2020 12:00:00 AM EST eCW1 ([facility]) Outpatient [address] [facility] [place] [address] 04/10/2020 12:00:00 AM EDT eCW1 ([facility]) Unknown [address] [facility] [place] [address] 04/09/2020 12:00:00 AM EDT eCW1 ([facility]) Unknown [address] [facility] [place] [address] 04/08/2020 12:00:00 AM EDT eCW1 ([facility]) Unknown [address] [facility] [place] [address] 04/05/2020 12:00:00 AM EDT eCW1 ([facility]) Unknown [address] [facility] [place] [address] 04/04/2020 12:00:00 AM EDT eCW1 ([facility]) Outpatient [address] [facility] [place] [address] 04/03/2020 12:00:00 AM EDT eCW1 ([facility]) Outpatient [address] [facility] [place] [address] 03/27/2020 12:00:00 AM EDT eCW1 ([facility]) OFFICE OUTPATIENT VISIT 15 MINUTES Attender: ELEANOR ESPINOSA Ph ysical Therapy 03/25/2020 11:00:00 AM EDT [facility] ([facility]) Immunizations Vaccine Date Status Description Data Source(s) COVID-19 VACC, MRNA(PFIZER)/PF 04/15/2021 12:00:00 AM EDT completed [facility] COVID-19 VACCINE Pfizer 04/15/2021 12:00:00 AM EDT completed [facility] Vaccine Series Complete: NOThis Data was Submitted to [facility] Via [employer]. INFLUENZA VIRUS VACCINE QUADRIVALENT 2019- (6 MOS [...] tablet (30 mg total) by mouth daily [facility] Hydrochlorothiazide 25 MG Oral Tablet hy drochlorothiazide (HYDRODIURIL) 25 MG tablet hydrochlorothiazide (HYDRODIURIL) 25 MG tablet 12:00:00 AM EDT active [facility] 500 mg 03/27/2021 12:00:00 AM EDT [...] tablet (20 mg total) by mouth daily [facility] Aspirin 81 MG Delayed Release Oral Table t SM Aspirin Adult Low Strength 81 MG EC tablet SM Aspirin Adult Low Strength 81 MG EC tablet 02/23/2021 12: 00:00 AM EDT 81 mg Oral active Take 1 tablet (8 1 mg total) by mouth daily [facility] 20 mg 02/23/2021 12:00:00 AM EDT [...] ONE TABLET BY MOUTH EVERY D AY [facility] Rosuvastatin calcium 10 MG Oral Tablet [...] (10 mg total) by m outh nightly [facility] 8.6-50 mg 09/06/2020 12:00:00 AM EDT tablet 30 TAKE ONE TABLET BY MOUTH EVERY EVENING NEEDED TAKE ONE TABLET BY MOUTH EVERY EVENING NEEDED SOLD: 09/06/2020 [facility] Docusate Sodium 50 MG / sennosides, HALFWAY 8.6 MG Oral Tablet [SENOKOT-S] Senokot S 8.6-50 MG Senokot S 8.6-50 MG 09/05/2020 12:00:00 AM EDT 1 .0 {tablet_in_the_evening_as_needed} active Senokot S 8.6-50 MG eCW1 ([facility]) Docusate Sodium 50 MG / sennosides, HALFWAY 8.6 MG Oral Tablet [SENOKOT-S] Senokot S 8.6-50 MG [facility]ok[facility] S 8.6-50 MG 09/05/2020 12:00:00 AM EDT 1 .0 {tablet_in_the_evening_as_needed} active Senokot S 8.6-50 MG eCW1 ([facility]) Docusate Sodium 50 MG / sennosides, HALFWAY 8.6 MG Oral Tablet [SENOKOT-S] Senokot S 8.6-50 MG [facility] 8.6-50 MG 09/05/2020 12:00:00 AM EDT 1 .0 {tablet_in_the_evening_as_needed} active Senokot S 8.6-50 MG eCW1 ([facility]) Docusate Sodium 50 MG / sennosides, HALFWAY 8.6 MG Oral Tablet [SENOKOT-S] Senokot S 8.6-50 MG [facility] S 8.6-50 MG 09/05/2020 12:00:00 AM EDT 1 .0 {tablet_in_the_evening_as_needed} active [facility]okot S 8.6-50 MG eCW1 ([facility]) Docusate Sodium 50 MG / sennosides, HALFWAY 8.6 MG Oral Tablet [SENOKOT-S] Senokot S 8.6-50 MG [facility] S 8.6-50 MG 09/05/2020 12:00:00 AM EDT 1 .0 {tablet_in_the_evening_as_needed} active Senokot S 8.6-50 MG eCW1 ([facility]) Docusate Sodium 50 MG / sennosides, HALFWAY 8.6 MG Oral Tablet [SENOKOT-S] Senokot S 8.6-50 MG [facility] S 8.6-50 MG 09/05/2020 12:00:00 AM EDT 1 .0 {tablet_in_the_evening_as_needed} active Senokot S 8.6-50 MG eCW1 ([facility]) Docusate Sodium 50 MG / sennosides, HALFWAY 8.6 MG Oral Tablet [SENOKOT-S] Senokot S 8.6-50 MG Senokot S 8.6-50 MG 09/05/2020 12:00:00 AM EDT 1 .0 {tablet_in_the_evening_as_needed} active Senokot S 8.6-50 MG eCW1 ([facility]) Docusate Sodium 50 MG / sennosides, HALFWAY 8.6 MG Oral Tablet [SENOKOT-S] Senokot S 8.6-50 MG Senok[facility] S 8.6-50 MG 09/05/2020 12:00:00 AM EDT 1 .0 {tablet_in_the_evening_as_needed} active [facility] 8.6-50 MG eCW1 ([facility]) Docusate Sodium 50 MG / sennosides, HALFWAY 8.6 MG Oral Tablet [SENOKOT-S] Senokot S 8.6-50 MG [facility] S 8.6-50 MG 09/05/2020 12:00:00 AM EDT 1 .0 {tablet_in_the_evening_as_needed} active [facility] 8.6-50 MG eCW1 ([facility]) Docusate Sodium 50 MG / sennosides, HALFWAY 8.6 MG Oral Tablet [SENOKOT-S] Senokot S 8.6-50 MG [facility] S 8.6-50 MG 09/05/2020 12:00:00 AM EDT 1 .0 {tablet_in_the_evening_as_needed} active [facility]okot S 8.6-50 MG eCW1 ([facility]) Rosuvastatin calcium 10 MG Oral Tablet rosuvastatin (C RESTOR) 10 MG tablet rosuvastatin (CRESTOR) 10 MG tablet 09/01/2020 12:00:00 AM EDT 10 mg Oral aborted Take 1 tablet (10 mg total) by m outh nightly [facility] Rosuvastatin calcium 10 MG Oral Tablet ROSUVASTATIN CALCIUM 09/01/2020 12:00:00 AM EDT tablet 30 TAKE ONE TABLET BY MOUTH NIG HTLY TAKE ONE TABLET BY MOUTH NIGHTLY SOLD: 09/01/2020 [facility] Cephalexin 500 MG Oral Capsule Cephalexin 500 MG 08/11/2020 12:00:00 AM EST active Cephalexin 500 MG eC W1 ([facility]) Cephalexin 500 MG Oral Capsule Cephalexin 500 MG 08/11/2020 12:00:00 AM EST suspended Cephalexin 500 MG eC W1 ([facility]) Cephalexin 500 MG Oral Capsule Cephalexin 500 MG 08/11/2020 12:00:00 AM EST suspended Cephalexin 500 MG eC W1 ([facility]) Cephalexin 500 MG Oral Capsule Cephalexin 500 MG 08/11/2020 12:00:00 AM EST active Cephalexin 500 MG eC W1 ([facility]) Cephalexin 500 MG Oral Capsule Cephalexin 500 MG 08/11/2020 12:00:00 AM EST suspended Cephalexin 500 MG eC W1 ([facility]) Cephalexin 500 MG Oral Capsule Cephalexin 500 MG 08/11/2020 12:00:00 AM EST suspended Cephalexin 500 MG eC W1 ([facility]) Cephalexin 500 MG Oral Capsule Cephalexin 500 MG 08/11/2020 12:00:00 AM EST suspended Cephalexin 500 MG eC W1 ([facility]) Cephalexin 500 MG Oral Capsule Cephalexin 500 MG 08/11/2020 12:00:00 AM EST active Cephalexin 500 MG eC W1 ([facility]) Cephalexin 500 MG Oral Capsule Cephalexin 500 MG 08/11/2020 12:00:00 AM EST suspended Cephalexin 500 MG eC W1 ([facility]) Cephalexin 500 MG Oral Capsule Cephalexin 500 MG 08/11/2020 12:00:00 AM EST suspended Cephalexin 500 MG eC W1 ([facility]) Cephalexin 500 MG Oral Capsule CEPHALEXIN 08/11/2020 12:00:00 AM EST capsule 1 TAKE ONE CAPSULE BY MOUTH ONE HOUR PRIOR TO CYSTOSCOPY TAKE ONE CAPSULE BY MOUTH ONE HOUR PRIOR TO CYSTOSCOPY SOLD: 08/11/2020 [facility] Cephalexin 500 MG Oral Capsule Cephalexin 500 MG 08/11/2020 12:00:00 AM EST suspended Cephalexin 500 MG eC W1 ([facility]) Cephalexin 500 MG Oral Capsule Cephalexin 500 MG 08/11/2020 12:00:00 AM EST suspended Cephalexin 500 MG eC W1 ([facility]) Cephalexin 500 MG Oral Capsule Cephalexin 500 MG 08/11/2020 12:00:00 AM EST active Cephalexin 500 MG eC W1 ([facility]) Cephalexin 500 MG Oral Capsule Cephalexin 500 MG 08/11/2020 12:00:00 AM EST suspended Cephalexin 500 MG eC W1 ([facility]) Cephalexin 500 MG Oral Capsule Cephalexin 500 MG 08/11/2020 12:00:00 AM EST active Cephalexin 500 MG eC W1 ([facility]) 25 mg 08/08/2020 12:00:00 AM EST tablet [...] tablet (25 mg total) by mouth daily [facility] 81 mg 08/01/2020 12:00:00 AM EST [...] (10 mg total) by m outh nightly [facility] Rosuvastatin calcium 10 MG Oral Tablet [...] solution 06/17/2020 12:00:00 AM EST active [facility] Lidocaine 5 % Lidocaine 5 % 06/12/2020 12:00:00 AM EST suspended Lidocaine 5 % eCW1 ([facility]) Lidocaine 5 % Lidocaine 5 % 06/12/2020 12:00:00 AM EST suspended Lidocaine 5 % eCW1 ([facility]) Lidocaine 5 % Lidocaine 5 % 06/12/2020 12:00:00 AM EST suspended Lidocaine 5 % eCW1 ([facility]) Lidocaine 5 % Lidocaine 5 % 06/12/2020 12:00:00 AM EST suspended Lidocaine 5 % eCW1 ([facility]) Lidocaine 5 % Lidocaine 5 % 06/12/2020 12:00:00 AM EST suspended Lidocaine 5 % eCW1 ([facility]) Lidocaine 5 % Lidocaine 5 % 06/12/2020 12:00:00 AM EST suspended Lidocaine 5 % eCW1 ([facility]) Lidocaine 5 % Lidocaine 5 % 06/12/2020 12:00:00 AM EST active Lidocaine 5 % eCW1 ([facility]) Lidocaine 5 % Lidocaine 5 % 06/12/2020 12:00:00 AM EST suspended Lidocaine 5 % eCW1 ([facility]) Lidocaine 5 % Lidocaine 5 % 06/12/2020 12:00:00 AM EST suspended Lidocaine 5 % eCW1 ([facility]) Lidocaine 5 % Lidocaine 5 % 06/12/2020 12:00:00 AM EST suspended Lidocaine 5 % eCW1 ([facility]) Lidocaine 5 % Lidocaine 5 % 06/12/2020 12:00:00 AM EST suspended Lidocaine 5 % eCW1 ([facility]) Lidocaine 5 % Lidocaine 5 % 06/12/2020 12:00:00 AM EST suspended Lidocaine 5 % eCW1 ([facility]) Lidocaine 5 % Lidocaine 5 % 06/12/2020 12:00:00 AM EST suspended Lidocaine 5 % eCW1 ([facility]) Lidocaine 5 % Lidocaine 5 % 06/12/2020 12:00:00 AM EST suspended Lidocaine 5 % eCW1 ([facility]) Lidocaine 5 % Lidocaine 5 % 06/12/2020 12:00:00 AM EST suspended Lidocaine 5 % eCW1 ([facility]) Lidocaine 5 % Lidocaine 5 % 06/12/2020 12:00:00 AM EST suspended Lidocaine 5 % eCW1 ([facility]) Lidocaine 5 % Lidocaine 5 % 06/12/2020 12:00:00 AM EST suspended Lidocaine 5 % eCW1 ([facility]) Lidocaine 5 % Lidocaine 5 % 06/12/2020 12:00:00 AM EST active Lidocaine 5 % eCW1 ([facility]) Lidocaine 5 % Lidocaine 5 % 06/12/2020 12:00:00 AM EST suspended Lidocaine 5 % eCW1 ([facility]) Lidocaine 5 % Lidocaine 5 % 06/12/2020 12:00:00 AM EST active Lidocaine 5 % eCW1 ([facility]) Lidocaine 5 % Lidocaine 5 % 06/12/2020 12:00:00 AM EST suspended Lidocaine 5 % eCW1 ([facility]) Lidocaine 5 % Lidocaine 5 % 06/12/2020 12:00:00 AM EST suspended Lidocaine 5 % eCW1 ([facility]) Lidocaine 5 % Lidocaine 5 % 06/12/2020 12:00:00 AM EST active Lidocaine 5 % eCW1 ([facility]) Rosuvastatin calcium 10 MG Oral Tablet rosuvastatin (C RESTOR) 10 MG tablet rosuvastatin (CRESTOR) 10 MG tablet 06/03/2020 12:00:00 AM EST 10 mg Oral aborted Take 1 tablet (10 mg total) by m outh nightly [facility] 10 mg 06/03/2020 12:00:00 AM EST [...] tablet (40 mg total) by mouth daily [facility] 24 HR Diltiazem Hydrochloride 180 MG Ext ended Release Oral Capsule diltiazem (CARDIZEM CD) 180 MG 24 hr capsule diltiazem (CARDIZEM CD) 180 MG 24 hr capsule 05/22/2020 12:00:00 AM EST 180 mg Oral aborted Take 1 capsule (180 mg total) by mouth daily [facility] Lisinopril 30 MG Oral Tablet Lisinopril 30 MG 05/13/2020 12:00:00 A M EST 1.0 {tablet} suspended Lisinopril 30 MG eCW1 ([facility]) Lisinopril 30 MG Oral Tablet Lisinopril 30 MG 05/13/2020 12:00:00 A M EST 1.0 {tablet} suspended Lisinopril 30 MG eCW1 ([facility]) Lisinopril 30 MG Oral Tablet Lisinopril 30 MG 05/13/2020 12:00:00 A M EST 1.0 {tablet} active Lisinopril 30 MG eCW1 ( [facility]) Lisinopril 30 MG Oral Tablet Lisinopril 30 MG 05/13/2020 12:00:00 A M EST 1.0 {tablet} suspended Lisinopril 30 MG eCW1 ([facility]) Lisinopril 30 MG Oral Tablet Lisinopril 30 MG 05/13/2020 12:00:00 A M EST 1.0 {tablet} suspended Lisinopril 30 MG eCW1 ([facility]) Lisinopril 30 MG Oral Tablet Lisinopril 30 MG 05/13/2020 12:00:00 A M EST 1.0 {tablet} suspended Lisinopril 30 MG eCW1 ([facility]) Lisinopril 30 MG Oral Tablet Lisinopril 30 MG 05/13/2020 12:00:00 A M EST 1.0 {tablet} active Lisinopril 30 MG eCW1 ( [facility]) Lisinopril 30 MG Oral Tablet Lisinopril 30 MG 05/13/2020 12:00:00 A M EST 1.0 {tablet} suspended Lisinopril 30 MG eCW1 ([facility]) Lisinopril 30 MG Oral Tablet Lisinopril 30 MG 05/13/2020 12:00:00 A M EST 1.0 {tablet} active Lisinopril 30 MG eCW1 ( [facility]) Lisinopril 30 MG Oral Tablet Lisinopril 30 MG 05/13/2020 12:00:00 A M EST 1.0 {tablet} suspended Lisinopril 30 MG eCW1 ([facility]) Lisinopril 30 MG Oral Tablet Lisinopril 30 MG 05/13/2020 12:00:00 A M EST 1.0 {tablet} active Lisinopril 30 MG eCW1 ( [facility]) Lisinopril 30 MG Oral Tablet Lisinopril 30 MG 05/13/2020 12:00:00 A M EST 1.0 {tablet} suspended Lisinopril 30 MG eCW1 ([facility]) Lisinopril 30 MG Oral Tablet Lisinopril 30 MG 05/13/2020 12:00:00 A M EST 1.0 {tablet} suspended Lisinopril 30 MG eCW1 ([facility]) Lisinopril 30 MG Oral Tablet Lisinopril 30 MG 05/13/2020 12:00:00 A M EST 1.0 {tablet} suspended Lisinopril 30 MG eCW1 ([facility]) Lisinopril 30 MG Oral Tablet Lisinopril 30 MG 05/13/2020 12:00:00 A M EST 1.0 {tablet} suspended Lisinopril 30 MG eCW1 ([facility]) Lisinopril 30 MG Oral Tablet Lisinopril 30 MG 05/13/2020 12:00:00 A M EST 1.0 {tablet} active Lisinopril 30 MG eCW1 ( [facility]) Lisinopril 30 MG Oral Tablet Lisinopril 30 MG 05/13/2020 12:00:00 A M EST 1.0 {tablet} suspended Lisinopril 30 MG eCW1 ([facility]) Lisinopril 30 MG Oral Tablet Lisinopril 30 MG 05/13/2020 12:00:00 A M EST 1.0 {tablet} suspended Lisinopril 30 MG eCW1 ([facility]) Lisinopril 30 MG Oral Tablet Lisinopril 30 MG 05/13/2020 12:00:00 A M EST 1.0 {tablet} suspended Lisinopril 30 MG eCW1 ([facility]) Lisinopril 30 MG Oral Tablet Lisinopril 30 MG 05/13/2020 12:00:00 A M EST 1.0 {tablet} suspended Lisinopril 30 MG eCW1 ([facility]) Lisinopril 30 MG Oral Tablet Lisinopril 30 MG 05/13/2020 12:00:00 A M EST 1.0 {tablet} suspended Lisinopril 30 MG eCW1 ([facility]) Lisinopril 30 MG Oral Tablet Lisinopril 30 MG 05/13/2020 12:00:00 A M EST 1.0 {tablet} suspended Lisinopril 30 MG eCW1 ([facility]) Lisinopril 30 MG Oral Tablet Lisinopril 30 MG 05/13/2020 12:00:00 A M EST 1.0 {tablet} suspended Lisinopril 30 MG eCW1 ([facility]) Lisinopril 30 MG Oral Tablet Lisinopril 30 MG 05/13/2020 12:00:00 A M EST 1.0 {tablet} suspended Lisinopril 30 MG eCW1 ([facility]) 24 HR Diltiazem Hydrochloride 180 MG Extended Release Oral Capsule DILTIAZEM HCL 05/09/2020 12:00:00 AM EST capsule,extended release 24hr 30 TAKE ONE CAPSULE BY MOUTH EVERY DAY TAKE ONE CAPSULE BY MOUTH EVERY DAY SOLD: 05/12/2020 [facility] 24 HR Diltiazem Hydrochloride 180 MG Ext ended Release Oral Capsule diltiazem (CARDIZEM CD) 180 MG 24 hr capsule diltiazem (CARDIZEM CD) 180 MG 24 hr capsule 05/07/2020 12:00:00 AM EST 180 mg Oral aborted Take 1 capsule (180 mg total) by mouth daily [facility] 20 mg 05/02/2020 12:00:00 AM EST tablet 30 TAKE ONE TABLET BY MOUTH EVERY DAY TAKE ONE TABLET BY MOUTH EVERY DAY SOLD: 05/06/2020 [facility] atorvastatin 40 MG Oral Tablet ATORVASTATIN CALCIUM 05/02/2020 1 2:00:00 AM EST tablet 30 TAKE ONE TABLET BY MOUTH EVERY D AY TAKE ONE TABLET BY MOUTH EVERY DAY SOLD: 05/06/2020 [facility] atorvastatin 40 MG Oral Tablet Atorvastatin Calcium 40 MG Atorvastatin Calcium 40 MG 05/01/2020 12:00:00 AM EST 1.0 {tablet} activ e Atorvastatin Calcium 40 MG eCW1 ([facility]) atorvastatin 40 MG Oral Tablet Atorvastatin Calcium 40 MG Atorvastatin Calcium 40 MG 05/01/2020 12:00:00 AM EST 1.0 {tablet} activ e Atorvastatin Calcium 40 MG eCW1 ([facility]) atorvastatin 40 MG Oral Tablet Atorvastatin Calcium 40 MG Atorvastatin Calcium 40 MG 05/01/2020 12:00:00 AM EST 1.0 {tablet} activ e Atorvastatin Calcium 40 MG eCW1 ([facility]) atorvastatin 40 MG Oral Tablet Atorvastatin Calcium 40 MG Atorvastatin Calcium 40 MG 05/01/2020 12:00:00 AM EST 1.0 {tablet} activ e Atorvastatin Calcium 40 MG eCW1 ([facility]) atorvastatin 40 MG Oral Tablet Atorvastatin Calcium 40 MG Atorvastatin Calcium 40 MG 05/01/2020 12:00:00 AM EST 1.0 {tablet} activ e Atorvastatin Calcium 40 MG eCW1 ([facility]) atorvastatin 40 MG Oral Tablet Atorvastatin Calcium 40 MG Atorvastatin Calcium 40 MG 05/01/2020 12:00:00 AM EST 1.0 {tablet} activ e Atorvastatin Calcium 40 MG eCW1 ([facility]) atorvastatin 40 MG Oral Tablet Atorvastatin Calcium 40 MG Atorvastatin Calcium 40 MG 05/01/2020 12:00:00 AM EST 1.0 {tablet} activ e Atorvastatin Calcium 40 MG eCW1 ([facility]) atorvastatin 40 MG Oral Tablet Atorvastatin Calcium 40 MG Atorvastatin Calcium 40 MG 05/01/2020 12:00:00 AM EST 1.0 {tablet} activ e Atorvastatin Calcium 40 MG eCW1 ([facility]) atorvastatin 40 MG Oral Tablet Atorvastatin Calcium 40 MG Atorvastatin Calcium 40 MG 05/01/2020 12:00:00 AM EST 1.0 {tablet} activ e Atorvastatin Calcium 40 MG eCW1 ([facility]) atorvastatin 40 MG Oral Tablet Atorvastatin Calcium 40 MG Atorvastatin Calcium 40 MG 05/01/2020 12:00:00 AM EST 1.0 {tablet} activ e Atorvastatin Calcium 40 MG eCW1 ([facility]) atorvastatin 40 MG Oral Tablet Atorvastatin Calcium 40 MG Atorvastatin Calcium 40 MG 05/01/2020 12:00:00 AM EST 1.0 {tablet} activ e Atorvastatin Calcium 40 MG eCW1 ([facility]) atorvastatin 40 MG Oral Tablet Atorvastatin Calcium 40 MG Atorvastatin Calcium 40 MG 05/01/2020 12:00:00 AM EST 1.0 {tablet} activ e Atorvastatin Calcium 40 MG eCW1 ([facility]) Lisinopril 20 MG Oral Tablet Lisinopril 20 MG 05/01/2020 12:00:00 A M EST 1.0 {tablet} active Lisinopril 20 MG eCW1 ( [facility]) atorvastatin 40 MG Oral Tablet Atorvastatin Calcium 40 MG Atorvastatin Calcium 40 MG 05/01/2020 12:00:00 AM EST 1.0 {tablet} suspe nded Atorvastatin Calcium 40 MG eCW1 ([facility]) atorvastatin 40 MG Oral Tablet Atorvastatin Calcium 40 MG Atorvastatin Calcium 40 MG 05/01/2020 12:00:00 AM EST 1.0 {tablet} activ e Atorvastatin Calcium 40 MG eCW1 ([facility]) atorvastatin 40 MG Oral Tablet Atorvastatin Calcium 40 MG Atorvastatin Calcium 40 MG 05/01/2020 12:00:00 AM EST 1.0 {tablet} activ e Atorvastatin Calcium 40 MG eCW1 ([facility]) atorvastatin 40 MG Oral Tablet Atorvastatin Calcium 40 MG Atorvastatin Calcium 40 MG 05/01/2020 12:00:00 AM EST 1.0 {tablet} activ e Atorvastatin Calcium 40 MG eCW1 ([facility]) atorvastatin 40 MG Oral Tablet Atorvastatin Calcium 40 MG Atorvastatin Calcium 40 MG 05/01/2020 12:00:00 AM EST 1.0 {tablet} activ e Atorvastatin Calcium 40 MG eCW1 ([facility]) atorvastatin 40 MG Oral Tablet Atorvastatin Calcium 40 MG Atorvastatin Calcium 40 MG 05/01/2020 12:00:00 AM EST 1.0 {tablet} suspe nded Atorvastatin Calcium 40 MG eCW1 ([facility]) atorvastatin 40 MG Oral Tablet Atorvastatin Calcium 40 MG Atorvastatin Calcium 40 MG 05/01/2020 12:00:00 AM EST 1.0 {tablet} activ e Atorvastatin Calcium 40 MG eCW1 ([facility]) atorvastatin 40 MG Oral Tablet Atorvastatin Calcium 40 MG Atorvastatin Calcium 40 MG 05/01/2020 12:00:00 AM EST 1.0 {tablet} activ e Atorvastatin Calcium 40 MG eCW1 ([facility]) atorvastatin 40 MG Oral Tablet Atorvastatin Calcium 40 MG Atorvastatin Calcium 40 MG 05/01/2020 12:00:00 AM EST 1.0 {tablet} activ e Atorvastatin Calcium 40 MG eCW1 ([facility]) atorvastatin 40 MG Oral Tablet Atorvastatin Calcium 40 MG Atorvastatin Calcium 40 MG 05/01/2020 12:00:00 AM EST 1.0 {tablet} activ e Atorvastatin Calcium 40 MG eCW1 ([facility]) Lisinopril 20 MG Oral Tablet Lisinopril 20 MG 05/01/2020 12:00:00 A M EST 1.0 {tablet} active Lisinopril 20 MG eCW1 ( [facility]) atorvastatin 40 MG Oral Tablet Atorvastatin Calcium 40 MG Atorvastatin Calcium 40 MG 05/01/2020 12:00:00 AM EST 1.0 {tablet} activ e Atorvastatin Calcium 40 MG eCW1 ([facility]) atorvastatin 40 MG Oral Tablet Atorvastatin Calcium 40 MG Atorvastatin Calcium 40 MG 05/01/2020 12:00:00 AM EST 1.0 {tablet} activ e Atorvastatin Calcium 40 MG eCW1 ([facility]) atorvastatin 40 MG Oral Tablet Atorvastatin Calcium 40 MG Atorvastatin Calcium 40 MG 05/01/2020 12:00:00 AM EST 1.0 {tablet} activ e Atorvastatin Calcium 40 MG eCW1 ([facility]) atorvastatin 40 MG Oral Tablet Atorvastatin Calcium 40 MG Atorvastatin Calcium 40 MG 05/01/2020 12:00:00 AM EST 1.0 {tablet} activ e Atorvastatin Calcium 40 MG eCW1 ([facility]) 20 mg 04/23/2020 12:00:00 AM EST tablet [...] aborted Take 10 mg by mouth daily [facility] 10 mg 04/22/2020 12:00:00 AM EST tablet 30 TAKE ONE TABLET BY MOUTH EVERY DAY TAKE ONE TABLET BY MOUTH EVERY DAY SOLD: 04/23/2020 [facility] Isosorbide Dinitrate 30 MG Oral Tablet Isosorbide Dinitrate 30 MG 04/21/2020 12:00:00 AM EST 1.0 {tablet} active Is osorbide Dinitrate 30 MG eCW1 ([facility]) Isosorbide Dinitrate 30 MG Oral Tablet Isosorbide Dinitrate 30 MG 04/21/2020 12:00:00 AM EST 1.0 {tablet} active Is osorbide Dinitrate 30 MG eCW1 ([facility]) Lisinopril 10 MG Oral Tablet Lisinopril 10 MG 04/21/2020 12:00:00 A M EST 1.0 {tablet} active Lisinopril 10 MG eCW1 ( [facility]) Isosorbide Dinitrate 30 MG Oral Tablet Isosorbide Dinitrate 30 MG 04/21/2020 12:00:00 AM EST 1.0 {tablet} active Is osorbide Dinitrate 30 MG eCW1 ([facility]) Isosorbide Dinitrate 30 MG Oral Tablet Isosorbide Dinitrate 30 MG 04/21/2020 12:00:00 AM EST 1.0 {tablet} suspended Isosorbide Dinitrate 30 MG eCW1 ([facility]) Isosorbide Dinitrate 30 MG Oral Tablet Isosorbide Dinitrate 30 MG 04/21/2020 12:00:00 AM EST 1.0 {tablet} active Is osorbide Dinitrate 30 MG eCW1 ([facility]) Isosorbide Dinitrate 30 MG Oral Tablet Isosorbide Dinitrate 30 MG 04/21/2020 12:00:00 AM EST 1.0 {tablet} active Is osorbide Dinitrate 30 MG eCW1 ([facility]) Isosorbide Dinitrate 30 MG Oral Tablet Isosorbide Dinitrate 30 MG 04/21/2020 12:00:00 AM EST 1.0 {tablet} active Is osorbide Dinitrate 30 MG eCW1 ([facility]) Isosorbide Dinitrate 30 MG Oral Tablet Isosorbide Dinitrate 30 MG 04/21/2020 12:00:00 AM EST 1.0 {tablet} active Is osorbide Dinitrate 30 MG eCW1 ([facility]) Isosorbide Dinitrate 30 MG Oral Tablet Isosorbide Dinitrate 30 MG 04/21/2020 12:00:00 AM EST 1.0 {tablet} active Is osorbide Dinitrate 30 MG eCW1 ([facility]) Isosorbide Dinitrate 30 MG Oral Tablet Isosorbide Dinitrate 30 MG 04/21/2020 12:00:00 AM EST 1.0 {tablet} active Is osorbide Dinitrate 30 MG eCW1 ([facility]) Isosorbide Dinitrate 30 MG Oral Tablet Isosorbide Dinitrate 30 MG 04/21/2020 12:00:00 AM EST 1.0 {tablet} active Is osorbide Dinitrate 30 MG eCW1 ([facility]) Isosorbide Dinitrate 30 MG Oral Tablet Isosorbide Dinitrate 30 MG 04/21/2020 12:00:00 AM EST 1.0 {tablet} active Is osorbide Dinitrate 30 MG eCW1 ([facility]) Isosorbide Dinitrate 30 MG Oral Tablet Isosorbide Dinitrate 30 MG 04/21/2020 12:00:00 AM EST 1.0 {tablet} active Is osorbide Dinitrate 30 MG eCW1 ([facility]) Isosorbide Dinitrate 30 MG Oral Tablet Isosorbide Dinitrate 30 MG 04/21/2020 12:00:00 AM EST 1.0 {tablet} active Is osorbide Dinitrate 30 MG eCW1 ([facility]) Isosorbide Dinitrate 30 MG Oral Tablet Isosorbide Dinitrate 30 MG 04/21/2020 12:00:00 AM EST 1.0 {tablet} active Is osorbide Dinitrate 30 MG eCW1 ([facility]) Isosorbide Dinitrate 30 MG Oral Tablet Isosorbide Dinitrate 30 MG 04/21/2020 12:00:00 AM EST 1.0 {tablet} suspended Isosorbide Dinitrate 30 MG eCW1 ([facility]) Isosorbide Dinitrate 30 MG Oral Tablet Isosorbide Dinitrate 30 MG 04/21/2020 12:00:00 AM EST 1.0 {tablet} active Is osorbide Dinitrate 30 MG eCW1 ([facility]) Isosorbide Dinitrate 30 MG Oral Tablet Isosorbide Dinitrate 30 MG 04/21/2020 12:00:00 AM EST 1.0 {tablet} active Is osorbide Dinitrate 30 MG eCW1 ([facility]) Isosorbide Dinitrate 30 MG Oral Tablet Isosorbide Dinitrate 30 MG 04/21/2020 12:00:00 AM EST 1.0 {tablet} active Is osorbide Dinitrate 30 MG eCW1 ([facility]) Isosorbide Dinitrate 30 MG Oral Tablet Isosorbide Dinitrate 30 MG 04/21/2020 12:00:00 AM EST 1.0 {tablet} active Is osorbide Dinitrate 30 MG eCW1 ([facility]) Isosorbide Dinitrate 30 MG Oral Tablet Isosorbide Dinitrate 30 MG 04/21/2020 12:00:00 AM EST 1.0 {tablet} active Is osorbide Dinitrate 30 MG eCW1 ([facility]) Isosorbide Dinitrate 30 MG Oral Tablet Isosorbide Dinitrate 30 MG 04/21/2020 12:00:00 AM EST 1.0 {tablet} active Is osorbide Dinitrate 30 MG eCW1 ([facility]) Isosorbide Dinitrate 30 MG Oral Tablet Isosorbide Dinitrate 30 MG 04/21/2020 12:00:00 AM EST 1.0 {tablet} active Is osorbide Dinitrate 30 MG eCW1 ([facility]) Isosorbide Dinitrate 30 MG Oral Tablet Isosorbide Dinitrate 30 MG 04/21/2020 12:00:00 AM EST 1.0 {tablet} active Is osorbide Dinitrate 30 MG eCW1 ([facility]) Isosorbide Dinitrate 30 MG Oral Tablet Isosorbide Dinitrate 30 MG 04/21/2020 12:00:00 AM EST 1.0 {tablet} active Is osorbide Dinitrate 30 MG eCW1 ([facility]) Isosorbide Dinitrate 30 MG Oral Tablet Isosorbide Dinitrate 30 MG 04/21/2020 12:00:00 AM EST 1.0 {tablet} active Is osorbide Dinitrate 30 MG eCW1 ([facility]) Isosorbide Dinitrate 30 MG Oral Tablet Isosorbide Dinitrate 30 MG 04/21/2020 12:00:00 AM EST 1.0 {tablet} active Is osorbide Dinitrate 30 MG eCW1 ([facility]) Isosorbide Dinitrate 30 MG Oral Tablet Isosorbide Dinitrate 30 MG 04/21/2020 12:00:00 AM EST 1.0 {tablet} active Is osorbide Dinitrate 30 MG eCW1 ([facility]) Lisinopril 10 MG Oral Tablet Lisinopril 10 MG 04/21/2020 12:00:00 A M EST 1.0 {tablet} active Lisinopril 10 MG eCW1 ( [facility]) 30 mg 04/09/2020 12:00:00 AM EDT tablet 60 TAKE ONE TABLET BY MOUTH TWICE A DAY TAKE ONE TABLET BY MOUTH TWICE A DAY SOLD: 04/11/2020 [facility] Nitroglycerin 0.3 MG Sublingual Tablet NITROGLYCERIN [...] mg Oral aborted Take 25 mg by [facility] Aspirin 81 MG Delayed Release Oral Table t SM ASPIRIN ADULT LOW STRENGTH 81 MG EC tablet SM ASPIRIN ADULT LOW STRENGTH 81 MG EC tablet 04/09/2020 12: 00:00 AM EDT 81 mg Oral aborted Take 81 mg by mo uth daily [facility] Nitroglycerin 0.3 MG Sublingual Tablet n itroglycerin (NITROSTAT) 0.3 MG SL tablet nitroglycerin (NITROSTAT) 0.3 MG SL tablet 04/09/2020 12:00:00 A M EDT aborted TAKE ONE T ABLET UNDER THE TONGUE WHEN CHEST PAIN DOES NOT IMPROVE IN 3 MINUTES AND CAN USE SECOND DOSE IF PAIN DOES NOT RESOLVE WITH ONE [facility] 25 mg 04/09/2020 12:00:00 AM EDT [...] TABLET BY MOUTH EVERY DAY SOLD: 04/11/2020 [facility] Nitroglycerin 0.3 MG Sublingual Tablet Nitroglycerin 0.3 MG 04/08/2020 12:00:00 AM EDT active Nitroglycerin 0.3 MG eCW1 ([facility]) Nitroglycerin 0.3 MG Sublingual Tablet Nitroglycerin 0.3 MG 04/08/2020 12:00:00 AM EDT active Nitroglycerin 0.3 MG eCW1 ([facility]) Nitroglycerin 0.3 MG Sublingual Tablet Nitroglycerin 0.3 MG 04/08/2020 12:00:00 AM EDT active Nitroglycerin 0.3 MG eCW1 ([facility]) Nitroglycerin 0.3 MG Sublingual Tablet Nitroglycerin 0.3 MG 04/08/2020 12:00:00 AM EDT active Nitroglycerin 0.3 MG eCW1 ([facility]) Nitroglycerin 0.3 MG Sublingual Tablet Nitroglycerin 0.3 MG 04/08/2020 12:00:00 AM EDT active Nitroglycerin 0.3 MG eCW1 ([facility]) Nitroglycerin 0.3 MG Sublingual Tablet Nitroglycerin 0.3 MG 04/08/2020 12:00:00 AM EDT active Nitroglycerin 0.3 MG eCW1 ([facility]) Nitroglycerin 0.3 MG Sublingual Tablet Nitroglycerin 0.3 MG 04/08/2020 12:00:00 AM EDT active Nitroglycerin 0.3 MG eCW1 ([facility]) Nitroglycerin 0.3 MG Sublingual Tablet Nitroglycerin 0.3 MG 04/08/2020 12:00:00 AM EDT active Nitroglycerin 0.3 MG eCW1 ([facility]) atorvastatin 80 MG Oral Tablet ATORVASTATIN CALCIUM 04/08/2020 1 2:00:00 AM EDT tablet 30 TAKE ONE TABLET BY MOUTH EVERY D AY TAKE ONE TABLET BY MOUTH EVERY DAY SOLD: 04/11/2020 [facility] Nitroglycerin 0.3 MG Sublingual Tablet Nitroglycerin 0.3 MG 04/08/2020 12:00:00 AM EDT active Nitroglycerin 0.3 MG eCW1 ([facility]) Nitroglycerin 0.3 MG Sublingual Tablet Nitroglycerin 0.3 MG 04/08/2020 12:00:00 AM EDT active Nitroglycerin 0.3 MG eCW1 ([facility]) Nitroglycerin 0.3 MG Sublingual Tablet Nitroglycerin 0.3 MG 04/08/2020 12:00:00 AM EDT active Nitroglycerin 0.3 MG eCW1 ([facility]) Nitroglycerin 0.3 MG Sublingual Tablet Nitroglycerin 0.3 MG 04/08/2020 12:00:00 AM EDT active Nitroglycerin 0.3 MG eCW1 ([facility]) Nitroglycerin 0.3 MG Sublingual Tablet Nitroglycerin 0.3 MG 04/08/2020 12:00:00 AM EDT active Nitroglycerin 0.3 MG eCW1 ([facility]) Nitroglycerin 0.3 MG Sublingual Tablet Nitroglycerin 0.3 MG 04/08/2020 12:00:00 AM EDT active Nitroglycerin 0.3 MG eCW1 ([facility]) Nitroglycerin 0.3 MG Sublingual Tablet Nitroglycerin 0.3 MG 04/08/2020 12:00:00 AM EDT active Nitroglycerin 0.3 MG eCW1 ([facility]) atorvastatin 40 MG Oral Tablet atorvastatin (LIPITOR) 40 MG tablet atorvastatin (LIPITOR) 40 MG tablet 04/08/2020 12:00:00 AM EDT 40 mg Oral aborted Take 40 mg by mouth daily [facility] Nitroglycerin 0.3 MG Sublingual Tablet Nitroglycerin 0.3 MG 04/08/2020 12:00:00 AM EDT active Nitroglycerin 0.3 MG eCW1 ([facility]) Nitroglycerin 0.3 MG Sublingual Tablet Nitroglycerin 0.3 MG 04/08/2020 12:00:00 AM EDT active Nitroglycerin 0.3 MG eCW1 ([facility]) Nitroglycerin 0.3 MG Sublingual Tablet Nitroglycerin 0.3 MG 04/08/2020 12:00:00 AM EDT active Nitroglycerin 0.3 MG eCW1 ([facility]) Nitroglycerin 0.3 MG Sublingual Tablet Nitroglycerin 0.3 MG 04/08/2020 12:00:00 AM EDT active Nitroglycerin 0.3 MG eCW1 ([facility]) Nitroglycerin 0.3 MG Sublingual Tablet Nitroglycerin 0.3 MG 04/08/2020 12:00:00 AM EDT active Nitroglycerin 0.3 MG eCW1 ([facility]) Nitroglycerin 0.3 MG Sublingual Tablet Nitroglycerin 0.3 MG 04/08/2020 12:00:00 AM EDT active Nitroglycerin 0.3 MG eCW1 ([facility]) Nitroglycerin 0.3 MG Sublingual Tablet Nitroglycerin 0.3 MG 04/08/2020 12:00:00 AM EDT active Nitroglycerin 0.3 MG eCW1 ([facility]) Nitroglycerin 0.3 MG Sublingual Tablet Nitroglycerin 0.3 MG 04/08/2020 12:00:00 AM EDT active Nitroglycerin 0.3 MG eCW1 ([facility]) Nitroglycerin 0.3 MG Sublingual Tablet Nitroglycerin 0.3 MG 04/08/2020 12:00:00 AM EDT active Nitroglycerin 0.3 MG eCW1 ([facility]) Nitroglycerin 0.3 MG Sublingual Tablet Nitroglycerin 0.3 MG 04/08/2020 12:00:00 AM EDT active Nitroglycerin 0.3 MG eCW1 ([facility]) Nitroglycerin 0.3 MG Sublingual Tablet Nitroglycerin 0.3 MG 04/08/2020 12:00:00 AM EDT active Nitroglycerin 0.3 MG eCW1 ([facility]) Nitroglycerin 0.3 MG Sublingual Tablet Nitroglycerin 0.3 MG 04/08/2020 12:00:00 AM EDT active Nitroglycerin 0.3 MG eCW1 ([facility]) Nitroglycerin 0.3 MG Sublingual Tablet Nitroglycerin 0.3 MG 04/08/2020 12:00:00 AM EDT active Nitroglycerin 0.3 MG eCW1 ([facility]) Nitroglycerin 0.3 MG Sublingual Tablet Nitroglycerin 0.3 MG 04/08/2020 12:00:00 AM EDT active Nitroglycerin 0.3 MG eCW1 ([facility]) Nitroglycerin 0.3 MG Sublingual Tablet Nitroglycerin 0.3 MG 04/08/2020 12:00:00 AM EDT active Nitroglycerin 0.3 MG eCW1 ([facility]) Nitroglycerin 0.3 MG Sublingual Tablet Nitroglycerin 0.3 MG 04/08/2020 12:00:00 AM EDT active Nitroglycerin 0.3 MG eCW1 ([facility]) Clonidine Hydrochloride 0.1 MG Oral Tablet Clonidine H Cl 0.1 MG Clonidine HCl 0.1 MG 04/03/2020 12:00:00 AM EDT 1.0 {tablet} suspe nded Clonidine HCl 0.1 MG eCW1 ([facility]) Clonidine Hydrochloride 0.1 MG Oral Tablet Clonidine H Cl 0.1 MG Clonidine HCl 0.1 MG 04/03/2020 12:00:00 AM EDT 1.0 {tablet} suspe nded Clonidine HCl 0.1 MG eCW1 ([facility]) Hydrochlorothiazide 25 MG Oral Tablet Hydrochlorothiazide 25 MG 04/03/2020 12:00:00 AM EDT 1.0 {tablet_in_the_morning} acti ve Hydrochlorothiazide 25 MG eCW1 ([facility]) Hydrochlorothiazide 25 MG Oral Tablet Hydrochlorothiazide 25 MG 04/03/2020 12:00:00 AM EDT 1.0 {tablet_in_the_morning} acti ve Hydrochlorothiazide 25 MG eCW1 ([facility]) Hydrochlorothiazide 25 MG Oral Tablet Hydrochlorothiazide 25 MG 04/03/2020 12:00:00 AM EDT 1.0 {tablet_in_the_morning} acti ve Hydrochlorothiazide 25 MG eCW1 ([facility]) atorvastatin 80 MG Oral Tablet Atorvastatin Calcium 80 MG Atorvastatin Calcium 80 MG 04/03/2020 12:00:00 AM EDT 1.0 {tablet} activ e Atorvastatin Calcium 80 MG eCW1 ([facility]) Hydrochlorothiazide 25 MG Oral Tablet Hydrochlorothiazide 25 MG 04/03/2020 12:00:00 AM EDT 1.0 {tablet_in_the_morning} acti ve Hydrochlorothiazide 25 MG eCW1 ([facility]) Hydrochlorothiazide 25 MG Oral Tablet Hydrochlorothiazide 25 MG 04/03/2020 12:00:00 AM EDT 1.0 {tablet_in_the_morning} acti ve Hydrochlorothiazide 25 MG eCW1 ([facility]) Isosorbide Dinitrate 30 MG Oral Tablet Isosorbide Dinitrate 30 MG 04/03/2020 12:00:00 AM EDT 1.0 {tablet} active Is osorbide Dinitrate 30 MG eCW1 ([facility]) Hydrochlorothiazide 25 MG Oral Tablet Hydrochlorothiazide 25 MG 04/03/2020 12:00:00 AM EDT 1.0 {tablet_in_the_morning} acti ve Hydrochlorothiazide 25 MG eCW1 ([facility]) Hydrochlorothiazide 25 MG Oral Tablet Hydrochlorothiazide 25 MG 04/03/2020 12:00:00 AM EDT 1.0 {tablet_in_the_morning} acti ve Hydrochlorothiazide 25 MG eCW1 ([facility]) Aspirin 81 MG Delayed Release Oral Tablet Aspirin 81 81 MG A spirin 81 81 MG 04/03/2020 12:00:00 AM EDT 1.0 {tablet} active Aspirin 81 81 MG eCW1 ([facility]) Hydrochlorothiazide 25 MG Oral Tablet Hydrochlorothiazide 25 MG 04/03/2020 12:00:00 AM EDT 1.0 {tablet_in_the_morning} acti ve Hydrochlorothiazide 25 MG eCW1 ([facility]) Aspirin 81 MG Delayed Release Oral Tablet Aspirin 81 81 MG A spirin 81 81 MG 04/03/2020 12:00:00 AM EDT 1.0 {tablet} active Aspirin 81 81 MG eCW1 ([facility]) Hydrochlorothiazide 25 MG Oral Tablet hydroCHLOROthiaz brennan 25 MG hydroCHLOROthiazide 25 MG 04/03/2020 12:00:00 AM EDT 1.0 {tablet_in_the_morning} suspended hydroC HLOROthiazide 25 MG eCW1 ([facility]) Aspirin 81 MG Delayed Release Oral Tablet Aspirin 81 81 MG A spirin 81 81 MG 04/03/2020 12:00:00 AM EDT 1.0 {tablet} active Aspirin 81 81 MG eCW1 ([facility]) Hydrochlorothiazide 25 MG Oral Tablet hydroCHLOROthiaz brennan 25 MG hydroCHLOROthiazide 25 MG 04/03/2020 12:00:00 AM EDT 1.0 {tablet_in_the_morning} active hydroCHL OROthiazide 25 MG eCW1 ([facility]) Hydrochlorothiazide 25 MG Oral Tablet hydroCHLOROthiaz brennan 25 MG hydroCHLOROthiazide 25 MG 04/03/2020 12:00:00 AM EDT 1.0 {tablet_in_the_morning} active hydroCHL OROthiazide 25 MG eCW1 ([facility]) Hydrochlorothiazide 25 MG Oral Tablet Hydrochlorothiazide 25 MG 04/03/2020 12:00:00 AM EDT 1.0 {tablet_in_the_morning} acti ve Hydrochlorothiazide 25 MG eCW1 ([facility]) Isosorbide Dinitrate 30 MG Oral Tablet Isosorbide Dinitrate 30 MG 04/03/2020 12:00:00 AM EDT 1.0 {tablet} active Is osorbide Dinitrate 30 MG eCW1 ([facility]) Hydrochlorothiazide 25 MG Oral Tablet hydroCHLOROthiaz brennan 25 MG hydroCHLOROthiazide 25 MG 04/03/2020 12:00:00 AM EDT 1.0 {tablet_in_the_morning} active hydroCHL OROthiazide 25 MG eCW1 ([facility]) Clonidine Hydrochloride 0.1 MG Oral Tablet cloNIDine H Cl 0.1 MG cloNIDine HCl 0.1 MG 04/03/2020 12:00:00 AM EDT 1.0 {tablet} suspe nded cloNIDine HCl 0.1 MG eCW1 ([facility]) Hydrochlorothiazide 25 MG Oral Tablet Hydrochlorothiazide 25 MG 04/03/2020 12:00:00 AM EDT 1.0 {tablet_in_the_morning} acti ve Hydrochlorothiazide 25 MG eCW1 ([facility]) Hydrochlorothiazide 25 MG Oral Tablet Hydrochlorothiazide 25 MG 04/03/2020 12:00:00 AM EDT 1.0 {tablet_in_the_morning} acti ve Hydrochlorothiazide 25 MG eCW1 ([facility]) Clonidine Hydrochloride 0.1 MG Oral Tablet Clonidine H Cl 0.1 MG Clonidine HCl 0.1 MG 04/03/2020 12:00:00 AM EDT 1.0 {tablet} activ e Clonidine HCl 0.1 MG eCW1 ([facility]) Clonidine Hydrochloride 0.1 MG Oral Tablet Clonidine H Cl 0.1 MG Clonidine HCl 0.1 MG 04/03/2020 12:00:00 AM EDT 1.0 {tablet} suspe nded Clonidine HCl 0.1 MG eCW1 ([facility]) Clonidine Hydrochloride 0.1 MG Oral Tablet Clonidine H Cl 0.1 MG Clonidine HCl 0.1 MG 04/03/2020 12:00:00 AM EDT 1.0 {tablet} suspe nded Clonidine HCl 0.1 MG eCW1 ([facility]) Clonidine Hydrochloride 0.1 MG Oral Tablet cloNIDine H Cl 0.1 MG cloNIDine HCl 0.1 MG 04/03/2020 12:00:00 AM EDT 1.0 {tablet} suspe nded cloNIDine HCl 0.1 MG eCW1 ([facility]) atorvastatin 80 MG Oral Tablet Atorvastatin Calcium 80 MG Atorvastatin Calcium 80 MG 04/03/2020 12:00:00 AM EDT 1.0 {tablet} activ e Atorvastatin Calcium 80 MG eCW1 ([facility]) atorvastatin 80 MG Oral Tablet Atorvastatin Calcium 80 MG Atorvastatin Calcium 80 MG 04/03/2020 12:00:00 AM EDT 1.0 {tablet} activ e Atorvastatin Calcium 80 MG eCW1 ([facility]) Aspirin 81 MG Delayed Release Oral Tablet Aspirin 81 81 MG A spirin 81 81 MG 04/03/2020 12:00:00 AM EDT 1.0 {tablet} active Aspirin 81 81 MG eCW1 ([facility]) Clonidine Hydrochloride 0.1 MG Oral Tablet Clonidine H Cl 0.1 MG Clonidine HCl 0.1 MG 04/03/2020 12:00:00 AM EDT 1.0 {tablet} suspe nded Clonidine HCl 0.1 MG eCW1 ([facility]) Aspirin 81 MG Delayed Release Oral Tablet Aspirin 81 81 MG A spirin 81 81 MG 04/03/2020 12:00:00 AM EDT 1.0 {tablet} active Aspirin 81 81 MG eCW1 ([facility]) Hydrochlorothiazide 25 MG Oral Tablet Hydrochlorothiazide 25 MG 04/03/2020 12:00:00 AM EDT 1.0 {tablet_in_the_morning} acti ve Hydrochlorothiazide 25 MG eCW1 ([facility]) Hydrochlorothiazide 25 MG Oral Tablet Hydrochlorothiazide 25 MG 04/03/2020 12:00:00 AM EDT 1.0 {tablet_in_the_morning} acti ve Hydrochlorothiazide 25 MG eCW1 ([facility]) Clonidine Hydrochloride 0.1 MG Oral Tablet Clonidine H Cl 0.1 MG Clonidine HCl 0.1 MG 04/03/2020 12:00:00 AM EDT 1.0 {tablet} suspe nded Clonidine HCl 0.1 MG eCW1 ([facility]) Hydrochlorothiazide 25 MG Oral Tablet Hydrochlorothiazide 25 MG 04/03/2020 12:00:00 AM EDT 1.0 {tablet_in_the_morning} acti ve Hydrochlorothiazide 25 MG eCW1 ([facility]) Isosorbide Dinitrate 30 MG Oral Tablet Isosorbide Dinitrate 30 MG 04/03/2020 12:00:00 AM EDT 1.0 {tablet} active Is osorbide Dinitrate 30 MG eCW1 ([facility]) Clonidine Hydrochloride 0.1 MG Oral Tablet Clonidine H Cl 0.1 MG Clonidine HCl 0.1 MG 04/03/2020 12:00:00 AM EDT 1.0 {tablet} suspe nded Clonidine HCl 0.1 MG eCW1 ([facility]) Aspirin 81 MG Delayed Release Oral Tablet Aspirin 81 81 MG A spirin 81 81 MG 04/03/2020 12:00:00 AM EDT 1.0 {tablet} active Aspirin 81 81 MG eCW1 ([facility]) Hydrochlorothiazide 25 MG Oral Tablet Hydrochlorothiazide 25 MG 04/03/2020 12:00:00 AM EDT 1.0 {tablet_in_the_morning} acti ve Hydrochlorothiazide 25 MG eCW1 ([facility]) Aspirin 81 MG Delayed Release Oral Tablet Aspirin 81 81 MG A spirin 81 81 MG 04/03/2020 12:00:00 AM EDT 1.0 {tablet} active Aspirin 81 81 MG eCW1 ([facility]) Hydrochlorothiazide 25 MG Oral Tablet Hydrochlorothiazide 25 MG 04/03/2020 12:00:00 AM EDT 1.0 {tablet_in_the_morning} acti ve Hydrochlorothiazide 25 MG eCW1 ([facility]) Aspirin 81 MG Delayed Release Oral Tablet Aspirin 81 81 MG A spirin 81 81 MG 04/03/2020 12:00:00 AM EDT 1.0 {tablet} active Aspirin 81 81 MG eCW1 ([facility]) atorvastatin 80 MG Oral Tablet Atorvastatin Calcium 80 MG Atorvastatin Calcium 80 MG 04/03/2020 12:00:00 AM EDT 1.0 {tablet} activ e Atorvastatin Calcium 80 MG eCW1 ([facility]) Hydrochlorothiazide 25 MG Oral Tablet Hydrochlorothiazide 25 MG 04/03/2020 12:00:00 AM EDT 1.0 {tablet_in_the_morning} acti ve Hydrochlorothiazide 25 MG eCW1 ([facility]) Clonidine Hydrochloride 0.1 MG Oral Tablet Clonidine H Cl 0.1 MG Clonidine HCl 0.1 MG 04/03/2020 12:00:00 AM EDT 1.0 {tablet} suspe nded Clonidine HCl 0.1 MG eCW1 ([facility]) pregabalin 150 MG Oral Capsule pregabalin (LYRICA) 150 MG capsule pregabalin (LYRICA) 150 MG capsule 04/03/2020 12:00:00 AM EDT aborted TK 1 C PO BID. MDD 2 CS [facility] Clonidine Hydrochloride 0.1 MG Oral Tablet Clonidine H Cl 0.1 MG Clonidine HCl 0.1 MG 04/03/2020 12:00:00 AM EDT 1.0 {tablet} suspe nded Clonidine HCl 0.1 MG eCW1 ([facility]) Clonidine Hydrochloride 0.1 MG Oral Tablet Clonidine H Cl 0.1 MG Clonidine HCl 0.1 MG 04/03/2020 12:00:00 AM EDT 1.0 {tablet} suspe nded Clonidine HCl 0.1 MG eCW1 ([facility]) Hydrochlorothiazide 25 MG Oral Tablet hydroCHLOROthiaz brennan 25 MG hydroCHLOROthiazide 25 MG 04/03/2020 12:00:00 AM EDT 1.0 {tablet_in_the_morning} active hydroCHL OROthiazide 25 MG eCW1 ([facility]) meloxicam 15 MG Oral Tablet meloxicam (MOBIC) 15 MG ta blet meloxicam (MOBIC) 15 MG tablet 04/03/2020 12:00:00 AM EDT aborted as needed [facility] Clonidine Hydrochloride 0.1 MG Oral Tablet Clonidine H Cl 0.1 MG Clonidine HCl 0.1 MG 04/03/2020 12:00:00 AM EDT 1.0 {tablet} suspe nded Clonidine HCl 0.1 MG eCW1 ([facility]) Hydrochlorothiazide 25 MG Oral Tablet Hydrochlorothiazide 25 MG 04/03/2020 12:00:00 AM EDT 1.0 {tablet_in_the_morning} acti ve Hydrochlorothiazide 25 MG eCW1 ([facility]) Hydrochlorothiazide 25 MG Oral Tablet Hydrochlorothiazide 25 MG 04/03/2020 12:00:00 AM EDT 1.0 {tablet_in_the_morning} acti ve Hydrochlorothiazide 25 MG eCW1 ([facility]) Isosorbide Dinitrate 30 MG Oral Tablet Isosorbide Dinitrate 30 MG 04/03/2020 12:00:00 AM EDT 1.0 {tablet} active Is osorbide Dinitrate 30 MG eCW1 ([facility]) Aspirin 81 MG Delayed Release Oral Tablet Aspirin 81 81 MG A spirin 81 81 MG 04/03/2020 12:00:00 AM EDT 1.0 {tablet} active Aspirin 81 81 MG eCW1 ([facility]) Hydrochlorothiazide 25 MG Oral Tablet Hydrochlorothiazide 25 MG 04/03/2020 12:00:00 AM EDT 1.0 {tablet_in_the_morning} acti ve Hydrochlorothiazide 25 MG eCW1 ([facility]) Clonidine Hydrochloride 0.1 MG Oral Tablet Clonidine H Cl 0.1 MG Clonidine HCl 0.1 MG 04/03/2020 12:00:00 AM EDT 1.0 {tablet} activ e Clonidine HCl 0.1 MG eCW1 ([facility]) Aspirin 81 MG Delayed Release Oral Tablet Aspirin 81 81 MG A spirin 81 81 MG 04/03/2020 12:00:00 AM EDT 1.0 {tablet} active Aspirin 81 81 MG eCW1 ([facility]) atorvastatin 80 MG Oral Tablet Atorvastatin Calcium 80 MG Atorvastatin Calcium 80 MG 04/03/2020 12:00:00 AM EDT 1.0 {tablet} activ e Atorvastatin Calcium 80 MG eCW1 ([facility]) Hydrochlorothiazide 25 MG Oral Tablet Hydrochlorothiazide 25 MG 04/03/2020 12:00:00 AM EDT 1.0 {tablet_in_the_morning} acti ve Hydrochlorothiazide 25 MG eCW1 ([facility]) Isosorbide Dinitrate 30 MG Oral Tablet Isosorbide Dinitrate 30 MG 04/03/2020 12:00:00 AM EDT 1.0 {tablet} active Is osorbide Dinitrate 30 MG eCW1 ([facility]) Hydrochlorothiazide 25 MG Oral Tablet Hydrochlorothiazide 25 MG 04/03/2020 12:00:00 AM EDT 1.0 {tablet_in_the_morning} acti ve Hydrochlorothiazide 25 MG eCW1 ([facility]) Hydrochlorothiazide 25 MG Oral Tablet Hydrochlorothiazide 25 MG 04/03/2020 12:00:00 AM EDT 1.0 {tablet_in_the_morning} acti ve Hydrochlorothiazide 25 MG eCW1 ([facility]) Aspirin 81 MG Delayed Release Oral Tablet Aspirin 81 81 MG A spirin 81 81 MG 04/03/2020 12:00:00 AM EDT 1.0 {tablet} active Aspirin 81 81 MG eCW1 ([facility]) Clonidine Hydrochloride 0.1 MG Oral Tablet Clonidine H Cl 0.1 MG Clonidine HCl 0.1 MG 04/03/2020 12:00:00 AM EDT 1.0 {tablet} suspe nded Clonidine HCl 0.1 MG eCW1 ([facility]) Clonidine Hydrochloride 0.1 MG Oral Tablet Clonidine H Cl 0.1 MG Clonidine HCl 0.1 MG 04/03/2020 12:00:00 AM EDT 1.0 {tablet} suspe nded Clonidine HCl 0.1 MG eCW1 ([facility]) Isosorbide Dinitrate 30 MG Oral Tablet Isosorbide Dinitrate 30 MG 04/03/2020 12:00:00 AM EDT 1.0 {tablet} active Is osorbide Dinitrate 30 MG eCW1 ([facility]) Aspirin 81 MG Delayed Release Oral Tablet Aspirin 81 81 MG A spirin 81 81 MG 04/03/2020 12:00:00 AM EDT 1.0 {tablet} active Aspirin 81 81 MG eCW1 ([facility]) Hydrochlorothiazide 25 MG Oral Tablet Hydrochlorothiazide 25 MG 04/03/2020 12:00:00 AM EDT 1.0 {tablet_in_the_morning} acti ve Hydrochlorothiazide 25 MG eCW1 ([facility]) atorvastatin 80 MG Oral Tablet Atorvastatin Calcium 80 MG Atorvastatin Calcium 80 MG 04/03/2020 12:00:00 AM EDT 1.0 {tablet} activ e Atorvastatin Calcium 80 MG eCW1 ([facility]) Clonidine Hydrochloride 0.1 MG Oral Tablet Clonidine H Cl 0.1 MG Clonidine HCl 0.1 MG 04/03/2020 12:00:00 AM EDT 1.0 {tablet} suspe nded Clonidine HCl 0.1 MG eCW1 ([facility]) Clonidine Hydrochloride 0.1 MG Oral Tablet Clonidine H Cl 0.1 MG Clonidine HCl 0.1 MG 04/03/2020 12:00:00 AM EDT 1.0 {tablet} suspe nded Clonidine HCl 0.1 MG eCW1 ([facility]) Aspirin 81 MG Delayed Release Oral Tablet Aspirin 81 81 MG A spirin 81 81 MG 04/03/2020 12:00:00 AM EDT 1.0 {tablet} active Aspirin 81 81 MG eCW1 ([facility]) Clonidine Hydrochloride 0.1 MG Oral Tablet cloNIDine H Cl 0.1 MG cloNIDine HCl 0.1 MG 04/03/2020 12:00:00 AM EDT 1.0 {tablet} suspe nded cloNIDine HCl 0.1 MG eCW1 ([facility]) Clonidine Hydrochloride 0.1 MG Oral Tablet Clonidine H Cl 0.1 MG Clonidine HCl 0.1 MG 04/03/2020 12:00:00 AM EDT 1.0 {tablet} suspe nded Clonidine HCl 0.1 MG eCW1 ([facility]) Clonidine Hydrochloride 0.1 MG Oral Tablet Clonidine H Cl 0.1 MG Clonidine HCl 0.1 MG 04/03/2020 12:00:00 AM EDT 1.0 {tablet} suspe nded Clonidine HCl 0.1 MG eCW1 ([facility]) Isosorbide Dinitrate 30 MG Oral Tablet Isosorbide Dinitrate 30 MG 04/03/2020 12:00:00 AM EDT 1.0 {tablet} suspended Isosorbide Dinitrate 30 MG eCW1 ([facility]) Clonidine Hydrochloride 0.1 MG Oral Tablet Clonidine H Cl 0.1 MG Clonidine HCl 0.1 MG 04/03/2020 12:00:00 AM EDT 1.0 {tablet} suspe nded Clonidine HCl 0.1 MG eCW1 ([facility]) Hydrochlorothiazide 25 MG Oral Tablet Hydrochlorothiazide 25 MG 04/03/2020 12:00:00 AM EDT 1.0 {tablet_in_the_morning} acti ve Hydrochlorothiazide 25 MG eCW1 ([facility]) Clonidine Hydrochloride 0.1 MG Oral Tablet Clonidine H Cl 0.1 MG Clonidine HCl 0.1 MG 04/03/2020 12:00:00 AM EDT 1.0 {tablet} suspe nded Clonidine HCl 0.1 MG eCW1 ([facility]) Clonidine Hydrochloride 0.1 MG Oral Tablet Clonidine H Cl 0.1 MG Clonidine HCl 0.1 MG 04/03/2020 12:00:00 AM EDT 1.0 {tablet} suspe nded Clonidine HCl 0.1 MG eCW1 ([facility]) Clonidine Hydrochloride 0.1 MG Oral Tablet cloNIDine H Cl 0.1 MG cloNIDine HCl 0.1 MG 04/03/2020 12:00:00 AM EDT 1.0 {tablet} suspe nded cloNIDine HCl 0.1 MG eCW1 ([facility]) Clonidine Hydrochloride 0.1 MG Oral Tablet cloNIDine H Cl 0.1 MG cloNIDine HCl 0.1 MG 04/03/2020 12:00:00 AM EDT 1.0 {tablet} suspe nded cloNIDine HCl 0.1 MG eCW1 ([facility]) Hydrochlorothiazide 25 MG Oral Tablet Hydrochlorothiazide 25 MG 04/03/2020 12:00:00 AM EDT 1.0 {tablet_in_the_morning} acti ve Hydrochlorothiazide 25 MG eCW1 ([facility]) Clonidine Hydrochloride 0.1 MG Oral Tablet Clonidine H Cl 0.1 MG Clonidine HCl 0.1 MG 04/03/2020 12:00:00 AM EDT 1.0 {tablet} suspe nded Clonidine HCl 0.1 MG eCW1 ([facility]) Hydrochlorothiazide 25 MG Oral Tablet Hydrochlorothiazide 25 MG 04/03/2020 12:00:00 AM EDT 1.0 {tablet_in_the_morning} acti ve Hydrochlorothiazide 25 MG eCW1 ([facility]) Aspirin 81 MG Delayed Release Oral Tablet Aspirin 81 81 MG A spirin 81 81 MG 04/03/2020 12:00:00 AM EDT 1.0 {tablet} active Aspirin 81 81 MG eCW1 ([facility]) Clonidine Hydrochloride 0.1 MG Oral Tablet Clonidine H Cl 0.1 MG Clonidine HCl 0.1 MG 04/03/2020 12:00:00 AM EDT 1.0 {tablet} activ e Clonidine HCl 0.1 MG eCW1 ([facility]) atorvastatin 80 MG Oral Tablet Atorvastatin Calcium 80 MG Atorvastatin Calcium 80 MG 04/03/2020 12:00:00 AM EDT 1.0 {tablet} activ e Atorvastatin Calcium 80 MG eCW1 ([facility]) Clonidine Hydrochloride 0.1 MG Oral Tablet Clonidine H Cl 0.1 MG Clonidine HCl 0.1 MG 04/03/2020 12:00:00 AM EDT 1.0 {tablet} suspe nded Clonidine HCl 0.1 MG eCW1 ([facility]) Hydrochlorothiazide 25 MG Oral Tablet Hydrochlorothiazide 25 MG 04/03/2020 12:00:00 AM EDT 1.0 {tablet_in_the_morning} acti ve Hydrochlorothiazide 25 MG eCW1 ([facility]) Aspirin 81 MG Delayed Release Oral Tablet Aspirin 81 81 MG A spirin 81 81 MG 04/03/2020 12:00:00 AM EDT 1.0 {tablet} active Aspirin 81 81 MG eCW1 ([facility]) Clonidine Hydrochloride 0.1 MG Oral Tablet Clonidine H Cl 0.1 MG Clonidine HCl 0.1 MG 04/03/2020 12:00:00 AM EDT 1.0 {tablet} suspe nded Clonidine HCl 0.1 MG eCW1 ([facility]) Albuterol Sulfate HFA 108 (90 Base) MCG/ACT Albuterol Sulfate HFA 108 (90 Base) MCG/ACT 03/27/2020 12:00:00 AM EDT 1.0 {puff_as_needed} suspended Albuterol Sulfate HFA 108 (90 Base) MCG/ACT eCW1 ([facility]) Albuterol Sulfate HFA 108 (90 Base) MCG/ACT Albuterol Sulfate HFA 108 (90 Base) MCG/ACT 03/27/2020 12:00:00 AM EDT 1.0 {puff_as_needed} suspended Albuterol Sulfate HFA 108 (90 Base) MCG/ACT eCW1 ([facility]) Albuterol Sulfate HFA 108 (90 Base) MCG/ACT Albuterol Sulfate HFA 108 (90 Base) MCG/ACT 03/27/2020 12:00:00 AM EDT 1.0 {puff_as_needed} suspended Albuterol Sulfate HFA 108 (90 Base) MCG/ACT eCW1 ([facility]) Albuterol Sulfate HFA 108 (90 Base) MCG/ACT Albuterol Sulfate HFA 108 (90 Base) MCG/ACT 03/27/2020 12:00:00 AM EDT 1.0 {puff_as_needed} active Albuterol Sulfate HFA 108 (90 Base) MCG/ACT eCW1 ([facility]) Albuterol Sulfate HFA 108 (90 Base) MCG/ACT Albuterol Sulfate HFA 108 (90 Base) MCG/ACT 03/27/2020 12:00:00 AM EDT 1.0 {puff_as_needed} suspended Albuterol Sulfate HFA 108 (90 Base) MCG/ACT eCW1 ([facility]) Albuterol Sulfate HFA 108 (90 Base) MCG/ACT Albuterol Sulfate HFA 108 (90 Base) MCG/ACT 03/27/2020 12:00:00 AM EDT 1.0 {puff_as_needed} suspended Albuterol Sulfate HFA 108 (90 Base) MCG/ACT eCW1 ([facility]) Albuterol Sulfate HFA 108 (90 Base) MCG/ACT Albuterol Sulfate HFA 108 (90 Base) MCG/ACT 03/27/2020 12:00:00 AM EDT 1.0 {puff_as_needed} active Albuterol Sulfate HFA 108 (90 Base) MCG/ACT eCW1 ([facility]) Albuterol Sulfate HFA 108 (90 Base) MCG/ACT Albuterol Sulfate HFA 108 (90 Base) MCG/ACT 03/27/2020 12:00:00 AM EDT 1.0 {puff_as_needed} active Albuterol Sulfate HFA 108 (90 Base) MCG/ACT eCW1 ([facility]) Albuterol Sulfate HFA 108 (90 Base) MCG/ACT Albuterol Sulfate HFA 108 (90 Base) MCG/ACT 03/27/2020 12:00:00 AM EDT 1.0 {puff_as_needed} active Albuterol Sulfate HFA 108 (90 Base) MCG/ACT eCW1 ([facility]) Albuterol Sulfate HFA 108 (90 Base) MCG/ACT Albuterol Sulfate HFA 108 (90 Base) MCG/ACT 03/27/2020 12:00:00 AM EDT 1.0 {puff_as_needed} active Albuterol Sulfate HFA 108 (90 Base) MCG/ACT eCW1 ([facility]) Albuterol Sulfate HFA 108 (90 Base) MCG/ACT Albuterol Sulfate HFA 108 (90 Base) MCG/ACT 03/27/2020 12:00:00 AM EDT 1.0 {puff_as_needed} suspended Albuterol Sulfate HFA 108 (90 Base) MCG/ACT eCW1 ([facility]) Albuterol Sulfate HFA 108 (90 Base) MCG/ACT Albuterol Sulfate HFA 108 (90 Base) MCG/ACT 03/27/2020 12:00:00 AM EDT 1.0 {puff_as_needed} suspended Albuterol Sulfate HFA 108 (90 Base) MCG/ACT eCW1 ([facility] [facility]) Albuterol Sulfate HFA 108 (90 Base) MCG/ACT Albuterol Sulfate HFA 108 (90 Base) MCG/ACT 03/27/2020 12:00:00 AM EDT 1.0 {puff_as_needed} suspended Albuterol Sulfate HFA 108 (90 Base) MCG/ACT eCW1 ([facility]) Albuterol Sulfate HFA 108 (90 Base) MCG/ACT Albuterol Sulfate HFA 108 (90 Base) MCG/ACT 03/27/2020 12:00:00 AM EDT 1.0 {puff_as_needed} active Albuterol Sulfate HFA 108 (90 Base) MCG/ACT eCW1 ([facility]) Albuterol Sulfate HFA 108 (90 Base) MCG/ACT Albuterol Sulfate HFA 108 (90 Base) MCG/ACT 03/27/2020 12:00:00 AM EDT 1.0 {puff_as_needed} suspended Albuterol Sulfate HFA 108 (90 Base) MCG/ACT eCW1 ([facility]) Albuterol Sulfate HFA 108 (90 Base) MCG/ACT Albuterol Sulfate HFA 108 (90 Base) MCG/ACT 03/27/2020 12:00:00 AM EDT 1.0 {puff_as_needed} suspended Albuterol Sulfate HFA 108 (90 Base) MCG/ACT eCW1 ([facility]) Albuterol Sulfate HFA 108 (90 Base) MCG/ACT Albuterol Sulfate HFA 108 (90 Base) MCG/ACT 03/27/2020 12:00:00 AM EDT 1.0 {puff_as_needed} active Albuterol Sulfate HFA 108 (90 Base) MCG/ACT eCW1 ([facility]) Albuterol Sulfate HFA 108 (90 Base) MCG/ACT Albuterol Sulfate HFA 108 (90 Base) MCG/ACT 03/27/2020 12:00:00 AM EDT 1.0 {puff_as_needed} suspended Albuterol Sulfate HFA 108 (90 Base) MCG/ACT eCW1 ([facility]) Albuterol Sulfate HFA 108 (90 Base) MCG/ACT Albuterol Sulfate HFA 108 (90 Base) MCG/ACT 03/27/2020 12:00:00 AM EDT 1.0 {puff_as_needed} active Albuterol Sulfate HFA 108 (90 Base) MCG/ACT eCW1 ([facility]) Albuterol Sulfate HFA 108 (90 Base) MCG/ACT Albuterol Sulfate HFA 108 (90 Base) MCG/ACT 03/27/2020 12:00:00 AM EDT 1.0 {puff_as_needed} active Albuterol Sulfate HFA 108 (90 Base) MCG/ACT eCW1 ([facility]) albuterol (PROVENTIL HFA;VENTOLIN HFA) 108 (90 Base) M CG/ACT inhaler [id number] 03/27/2020 12:00:00 AM EDT abort ed INHALE ONE PUFF BY MOUTH EVERY 4 HOURS NEEDED [facility] Albuterol Sulfate HFA 108 (90 Base) MCG/ACT Albuterol Sulfate HFA 108 (90 Base) MCG/ACT 03/27/2020 12:00:00 AM EDT 1.0 {puff_as_needed} active Albuterol Sulfate HFA 108 (90 Base) MCG/ACT eCW1 ([facility]) Albuterol Sulfate HFA 108 (90 Base) MCG/ACT Albuterol Sulfate HFA 108 (90 Base) MCG/ACT 03/27/2020 12:00:00 AM EDT 1.0 {puff_as_needed} suspended Albuterol Sulfate HFA 108 (90 Base) MCG/ACT eCW1 ([facility]) Albuterol Sulfate HFA 108 (90 Base) MCG/ACT Albuterol Sulfate HFA 108 (90 Base) MCG/ACT 03/27/2020 12:00:00 AM EDT 1.0 {puff_as_needed} suspended Albuterol Sulfate HFA 108 (90 Base) MCG/ACT eCW1 ([facility]) Albuterol Sulfate HFA 108 (90 Base) MCG/ACT Albuterol Sulfate HFA 108 (90 Base) MCG/ACT 03/27/2020 12:00:00 AM EDT 1.0 {puff_as_needed} suspended Albuterol Sulfate HFA 108 (90 Base) MCG/ACT eCW1 ([facility]) Albuterol Sulfate HFA 108 (90 Base) MCG/ACT Albuterol Sulfate HFA 108 (90 Base) MCG/ACT 03/27/2020 12:00:00 AM EDT 1.0 {puff_as_needed} active Albuterol Sulfate HFA 108 (90 Base) MCG/ACT eCW1 ([facility]) Albuterol Sulfate HFA 108 (90 Base) MCG/ACT Albuterol Sulfate HFA 108 (90 Base) MCG/ACT 03/27/2020 12:00:00 AM EDT 1.0 {puff_as_needed} suspended Albuterol Sulfate HFA 108 (90 Base) MCG/ACT eCW1 ([facility]) Albuterol Sulfate HFA 108 (90 Base) MCG/ACT Albuterol Sulfate HFA 108 (90 Base) MCG/ACT 03/27/2020 12:00:00 AM EDT 1.0 {puff_as_needed} suspended Albuterol Sulfate HFA 108 (90 Base) MCG/ACT eCW1 ([facility]) 90 mcg/actuation 03/27/2020 12:00:00 AM EDT HFA [...] Sulfate HFA 108 (90 Base) MCG/ACT eCW1 ([facility]) Albuterol Sulfate HFA 108 (90 Base) MCG/ACT Albuterol Sulfate HFA 108 (90 Base) MCG/ACT 03/27/2020 12:00:00 AM EDT 1.0 {puff_as_needed} active Albuterol Sulfate HFA 108 (90 Base) MCG/ACT eCW1 ([facility]) Albuterol Sulfate HFA 108 (90 Base) MCG/ACT Albuterol Sulfate HFA 108 (90 Base) MCG/ACT 03/27/2020 12:00:00 AM EDT 1.0 {puff_as_needed} suspended Albuterol Sulfate HFA 108 (90 Base) MCG/ACT eCW1 ([facility]) Albuterol Sulfate HFA 108 (90 Base) MCG/ACT Albuterol Sulfate HFA 108 (90 Base) MCG/ACT 03/27/2020 12:00:00 AM EDT 1.0 {puff_as_needed} active Albuterol Sulfate HFA 108 (90 Base) MCG/ACT eCW1 ([facility]) Albuterol Sulfate HFA 108 (90 Base) MCG/ACT Albuterol Sulfate HFA 108 (90 Base) MCG/ACT 03/27/2020 12:00:00 AM EDT 1.0 {puff_as_needed} suspended Albuterol Sulfate HFA 108 (90 Base) MCG/ACT eCW1 ([facility]) Albuterol Sulfate HFA 108 (90 Base) MCG/ACT Albuterol Sulfate HFA 108 (90 Base) MCG/ACT 03/27/2020 12:00:00 AM EDT 1.0 {puff_as_needed} active Albuterol Sulfate HFA 108 (90 Base) MCG/ACT eCW1 ([facility]) pregabalin 150 MG Oral Capsule Pregabalin 03/25/2020 12:00:00 AM EDT ORAL active [facility] ([facility]) Omeprazole 20 MG Delayed Release Oral Ca psule omeprazole (PRILOSEC) 20 MG capsule omeprazole (PRILOSEC) 20 MG capsule 02/07/2020 12:00:00 AM EDT aborted TAKE ONE CAPSULE BY MOUTH EVERY MORNING 30 MINUTES BEFORE MORNING MEAL [facility] pregabalin 150 MG Oral Capsule [Lyrica] Lyrica 01/07/2020 12:00:0 0 AM EDT ORAL completed [facility] ([facility]) Lisinopril 20 MG Oral Tablet lisinopril (PRINIVIL,ZEST RIL) 20 MG tablet lisinopril (PRINIVIL,ZESTRIL) 20 MG tablet 20 mg Oral aborted Take 20 mg by mouth daily [facility] Diltiazem Hydrochloride 30 MG Oral Tablet diltiazem (C ARDIZEM) 30 MG tablet diltiazem (CARDIZEM) 30 MG tablet 30 mg Oral abor jason Take 30 mg by mouth 2 (two) times a day [facility] Insurance Providers Payer name Policy type / Coverage type Policy ID Covered constitution party ID Covered constitution party's relationship to dawson Policy Dawson Plan Information D [facility] Care [facility] P [id number] S [id number] [facility] PL[facility] [id number] SP [id number] Progressive (NF) Workers Compensation [id number] Self [id number] NO FAULT [id number] Paulina 6 [employer] (NF) Workers Compensation [id number] Self [id number] PROGRESSIVE CO NO FAULT [id number] SP [id number] PROGRESSIVE E [id number] Self [id number] [facility] Care [facility] Community Plan P [id number] S [id number] [facility] Care [facility] P [id number] S [id number] [employer] (NF) Workers Compensation [id number] Self [id number] [employer] (NF) Workers Compensation [id number] Self [id number] [employer] (NF) Workers Compensation [id number] Self [id number] [employer] ([place]) Workers Compensation [id number] Self [id number] [employer] ([place]) Workers Compensation [id number] Self [id number] [facility] MEDICAID [id number] xxxxxxxxx [id number] [facility] MEDICAID [id number] Paulina [id number] [facility] MEDICAID [id number] xxxxxxxxx [id number] [facility] MEDICAID [id number] Paulina [id number] PROGRESSIVE CO NO FAULT [id number] SP [id number] SELF PAY ONLY [id number] SP [id number] SELF PAY ONLY SP1 SP SP1 O UNAVAILABLE UNAVAILA BLE SELF PAY ONLY [id number] SP [id number] [employer] O [id number] S [id number] [employer] NF [id number] SP [id number] ANSI-Medicaid [id number] ANSI-Medicaid [id number] ANSI-Medicaid [id number] ANSI-Medicaid [id number] ANSI-Medicaid [id number] ANSI-Medicaid [id number] ANSI-Medicaid [id number] ANSI-Not a Secondary Insurance [id number] ANSI-Medicaid [id number] ANSI-Not a Secondary Insurance [id number] ANSI-Medicaid [id number] ANSI-Not a Secondary Insurance [id number] [facility] [id number] ANSI-Medicaid [id number] ANSI-Not a Secondary Insurance [id number] ANSI-Medicaid [id number] ANSI-Not a Secondary Insurance [id number] ANSI-Not a Secondary Insurance [id number] ANSI-Medicaid [id number] ANSI-Medicaid [id number] ANSI-Not a Secondary Insurance [id number] PROGRESSIVE CO NO FAULT [id number] SP [id number] PROGRESSIVE CO NO FAULT [id number] SP [id number] ANSI-Not a Secondary Insurance [id number] ANSI-Medicaid [id number] OTHER WORKERS COMPENSATION [id number] SP [id number] MEDICAID M [id number] S [id number] MEDICAID [id number] SP [id number] PROGRESSIVE CO NO FAULT [id number] SP [id number] [facility] O [id number] S [id number] Managed Care - Community Plan [facility] P [id number] S [id number] ANSI-Medicaid [id number] ANSI-Not a Secondary Insurance [id number] ANSI-Medicaid [id number] ANSI-Not a Secondary Insurance [id number] Medicaid Dental S UNAVAILABLE S UN AVAILABLE PROGRESSIVE CO NO FAULT O [id number] S [id number] PROGRESSIVE CO NO FAULT [id number] SP [id number] PROGRESSIVE CO NO FAULT O [id number] S [id number] NF Progressive Insurance Claim No. [id number] Claim No. [id number] PROGRESSIVE CO NO FAULT [id number] SP [id number] NO FAULT [id number] Paulina [id number] NO FAULT PI PI NO FAULT [id number] Paulina [id number] [facility](MCAID) O [id number] S [id number] SELF PAY UNAVAILABLE SP UNAVAILA BLE [facility] [id number] SP [id number] [facility] [id number] SP [id number] [facility] [id number] SP [id number] PROGRESSIVE CO NO FAULT [id number] SP [id number] PROGRESSIVE CO NO FAULT [id number] SP [id number] PROGRESSIVE CO NO FAULT [id number] SP [id number] [facility] O [id number] S [id number] PROGRESSIVE CO NO FAULT O [id number] S [id number] Medicaid S [id number] S [id number] SELF PAY ONLY - SP1 SP PROGRESSIVE O [id number] S 135 [employer] [facility] CLAIM[facility] [id number] SP [id number] MEDICAID [id number] SP [id number] UMR/POM[employer] RISK MANAGEMENT SP [employer]IS [facility] CLAIMS [id number] SP [id number] PROGRESSIVE CO NO FAULT [id number] SP [id number] PROGRESSIVE CO NO FAULT [id number] SP [id number] SELF PAY ONLY [id number] Problems, Conditions, and Diagnoses Code Display Name Description Problem Type Effective Dates Data Source(s) I10 Essential (primary) hypertension Essential (primary) h ypertension Diagnosis 02/23/2021 07:04:11 AM EDT [facility] Z91.89 Other specified personal risk factors, n ot elsewhere classified Other specified personal risk factors, n Diagnosis 02/23/2021 07:04:11 AM ED T [facility] R07.89 Other chest pain Other chest pain Diagnosis 11/04/2020 03 :10:04 PM EDT [facility] E78.2 Mixed hyperlipidemia Mixed hyperlipidemia Diagnosis 11/04/2020 03:10:04 PM EDT [facility] R55 Syncope and collapse Syncope and collapse Diagnosis 11/04/2020 03:10:04 PM EDT [facility] N28.9 Disorder of kidney and ureter, unspecifi ed Disorder of kidney and ureter, unspecifi Diagnosis 07/01/2020 10:28:25 AM EST [facility] Z01.818 Pre-procedure evaluation check Preop testing Problem 04/13/2021 12:00:00 AM EDT eCW1 ([facility]) N39.0 Urinary tract infectious disease UTI (urinary tract in fection) Problem 04/13/2021 12:00:00 AM EDT eCW1 ([facility]) N20.0 Kidney stone Kidney stone Problem 04/13/2021 12:00:00 A M EDT eCW1 ([facility]) G47.33 ARVIN (obstructive sleep apnea) ARVIN (obstructive sleep a pnea) [id number] 02/23/2021 12:00:00 AM EDT [facility] R07.89 Atypical chest pain Atypical chest pain [id number] 11/04/2020 12:00:00 AM EDT [facility] R55 Syncope Syncope [id number] 11/04/2020 12:00:00 AM ED T [facility] I49.3 [id number] PVC (premature ventricular contraction) P roblem 10/01/2020 12:00:00 AM EDT eCW1 ([facility]) R31.29 Microscopic hematuria Microscopic hematuria Problem 08/11/2020 12:00:00 AM EST eCW1 ([facility]) [id number] Essential hypertension Essential hypertension Problem 07/15/2020 12:00:00 AM EST [facility] ([facility], ) E78.2 Mixed hyperlipidemia Mixed hyperlipidemia [id number] 05/07/2020 12:00:00 AM EST [facility] N28.9 Renal insufficiency Renal insufficiency [id number] 07/07/2019 12:00:00 AM EST [facility] I10 Essential hypertension Essential hypertension [id number] 05/07/2020 12:00:00 AM EST [facility] 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 Probl em 04/10/2020 12:00:00 AM EDT eCW1 ([facility]) N20.0 [id number] Kidney stone on left side Problem 04/10/2020 12:00:00 AM EDT eCW1 ([facility]) I10 [id number] Accelerated essential hypertension Proble m 04/08/2020 12:00:00 AM EDT eCW1 ([facility]) H04.123 [id number] Dry eyes Problem 04/05/2020 12:00:00 AM ED T eCW1 ([facility]) E78.5 [id number] Dyslipidemia Problem 04/03/2020 12:00:00 AM EDT eCW1 ([facility]) I20.8 [id number] Stable angina Problem 04/03/2020 12:00:00 AM EDT eCW1 ([facility]) I15.9 [id number] Secondary hypertension Problem 04/03/2020 12 :00:00 AM EDT eCW1 ([facility]) Surgeries/Procedures Procedure Description Date Indications Data Source(s) ECG ROUTINE ECG W/LEAST 12 LDS W/I&R <td>POCT AMB EKG</td><td>Routine</td><td>04/15/2021 5:15 PM EDT</td><td> Atypical chest pain</td><td> </td> 04/15/2021 05:15:00 PM EDT Atypical chest pain [facility] Atypical chest pain OFFICE OUTPATIENT VISIT 15 MINUTES 03/24/2021 12:00:00 AM EDT [facility] ([facility], ) POCT AMB EKG <td>POCT AMB EKG</td><td>Rou blake</td><td>02/23/2021 8:49 AM EDT</td><td> Atypical chest pain</td><td> </td> 02/23/2021 08:49:00 AM EDT Atypical chest pain [facility] Atypical chest pain OFFICE OUTPATIENT NEW 30 MINUTES 02/20/2021 12:00:00 A M EDT MEDKEVIN ([facility], ) Medication: Lidocaine HCl 2% Jelly 5mL Intravesically 09/17/2020 12:00:00 AM EDT eC ([facility]) BLOOD COUNT COMPLETE AUTO&AUTO DIFRNTL WBC COUNT <td>C BC AND DIFFERENTIAL</td><td>Routine</td><td>09/01/2020</td><td></td><td> </td> 09/01/2020 12:00:00 AM EDT [facility] HEPATIC FUNCTION PANEL <td>HEPATIC FUNCTION PANEL</td><td>Routine</td><td>09/01/2020</td><td></td><td> </td> 09/01/2020 12:00:00 AM EDT [facility] BASIC METABOLIC PANEL CALCIUM TOTAL <td>BASIC METABOLI C PANEL</td><td>Routine</td><td>08/11/2020</td><td></td><td> </td> 08/11/2020 12:00:00 AM EST [facility] BASIC METABOLIC PANEL CALCIUM TOTAL <td>BASIC METABOLI C PANEL</td><td>Routine</td><td>05/23/2020 2:33 PM EST</td><td> Essential hypertension</td><td> </td> 05/23/2020 07:33:00 PM EST Essential hypertension [facility] Essential hypertension ECG ROUTINE ECG W/LEAST 12 LDS W/I&R <td>POCT AMB EKG</td><td>Routine</td><td>05/07/2020 3:30 PM EST</td><td> Essential hypertension</td><td> </td> 05/07/2020 08:30:00 PM EST Essential hypertension [facility] Essential hypertension Results ID Date Data Source [id number] 01/10/2021 05:05:26 PM EDT [facility] Name Value Range Interpretation Code Description Data Anneliese rce(s) Supporting Document(s) &PDF [facility] ORXAQt5oUhENCpKe14/IZTcsPLWfv7AnRFadHMz7WJreUSRsI4SksNuzXYQCFp3WXTBwWPPGFIBoSNoj waW [file] AgICAgICAgICAgICAgICAgICAgICAgICAgICAgICAgICAgICAgICAgICAgICAgICAgICAgICAgICAgIC QcTPYuBBJsLIBmBTVaGAMnTB1JFKXdZDYdTSOyMUZfSEXeBTRkUHFdEVYwHNOuWZLpPPPjXVXiMNEoII AgICAgICAgICAgICAgICAgICAgICAgICAgICAgICAg QIDwOCKnZXRvDGMjTMXuJMWaYFDhSMWgRGPhNC0AKFEuVCZhZCLgXRXcPNTiDSLaWCRcSSOjJIJkAQUx ICAgICAgICAgICAgICAgICAgICAgICAgICAgICAgICAgICAgICAgICAgICAgICAgICAgICAgICAgICAg VPQpAYNaBHKmUJ8OTKWeVPXqVTTgEYOoUNYaIMFdRH AgICAgICAgICAgICAgICAgICAgICAgICAgICAgICAgICAgICAgICAgICAgICAgICAgICAgICAgICAgIC YfPDRmXYSnHSOeQQMqSQRgXLNkLX2KJIAgRFZpVLYnRMAmQOPqALTwLEAgADUbDUYqKQYqVRVpWUHaZL AgICAgICAgICAgICAgICAgICAgICAgICAgICAgICAg DXCbTCIiMYGnGUUhCTZuLUOkBQXjBSYkBFTtEVSsIL5GLGKsHXGyWEGbPKTcRSMqWSNbKXPlUHNgYSPh ICAgICAgICAgICAgICAgICAgICAgICAgICAgICAgICAgICAgICAgICAgICAgICAgICAgICAgICAgICAg MWQtKTGzYMMxXNJzQJ9FWBJsRMCwOBNxADSvZRDhLI AgICAgICAgICAgICAgICAgICAgICAgICAgICAgICAgICAgICAgICAgICAgICAgICAgICAgICAgICAgIC JsRSWvZBHyVKJzRWPwLXUxEIZqURPaNR0XSFKbMTFcGWAhAAIkZDYmUMCpHCQwHGTsSBMxLOOnERSeGL AgICAgICAgICAgICAgICAgICAgICAgICAgICAgICAg JJItKHYwOHNuWPYgJRFiVRAhGBXpPNZjJFSbWMZsYAUpUO7KYJFqELHkOBKtSFAoZDCbXTPqXZNtTGBz ICAgICAgICAgICAgICAgICAgICAgICAgICAgICAgICAgICAgICAgICAgICAgICAgICAgICAgICAgICAg TQImKFJySNVqVLUoKXBvOT7ZLAOpESRjPSQaKKKpBG AgICAgICAgICAgICAgICAgICAgICAgICAgICAgICAgICAgICAgICAgICAgICAgICAgICAgICAgICAgIC WyZMGlSHRsTRReKQGcMCApGSBtNITgCTObKQ3GEE17eFRwc4M4TLCvIV4tvnm/Dh0OPHbnadPgiHOkMB 0MYlGfBP0nfp4YNnHyTI3mog2DZIoWQeGdW6S1fMRe TQOmAVDIZyMzO50gDRzdHa37TUyjRGJlJqMbTVg3Ff3JVxToE3iqYZGtGnA3TOQeZxZ4JKZcReT3SELw JlTbXQVuLTAhZBOcQGILFY4GGcDwW7BnbE23XCLXUx3+RUseyoKtYyvNUiV2JFPjq8NnYWe8XG4NQRPy WSjoAH4VSRJsjZ6yFAzqBT8SAmK2ElQlTNREOdKzB5 1ceJNhZOe5Y2MbDwWcTDNgRmecUDZeOVffPjTcJFEfNuUwUAxbPW0+ID4+SJwvXK6VRYbgndVrYDEgMp 0RUGWvTEJ5YWAhiNAkACmoTLZKJVovTQ4GwNEgGHA8eS8pBWivTMXeRVYfV6sTIiVeeEqnWN18bPlqlz VsbCBdDQo+Xy2OKZ7kv6DjJNb5nxObVPuvLQEtQQdk XMKhOEBmAQNyLBL0HHE0SEYQMdAhLLXgEUYdMPziLAFoFIFyit7VRUGtARNiTeT7MXAsRSZgRSJgHJej CTDwGPK3FBA8OWJbNOHsNJ3APsEzXHHvPAMfQBsyETTnJQEjxu2ATHSlHVZjDsI0CjFhYOEaSAPxZWmh CNKoACImFQGvIGUbBSKwBQ7WKuMcVQGyOMc4MJavDU WrKSTcsk0RHUCtGKPcELztCDXrFIRvXYBtXXpaQJTyFIHaCkfyBBHrXRWzDC6ZQaTzYSJaKSV6NEJnKC XvBBLilj6AAIGcASTvPmx7FCOfQVKtNZCcVGyrFLOxVYF2XMD8BZFbNRGkDG4NWtCmMKQsZMl4VyLhOI DbRYFevb4JERJyDRVrDsiqHUSrDYLnYQPeTRikHEKk BRI4Qgb3EFQpIDBpJK0OViVpIHVhKYd0OXRhVJTvIHXaww0POKAhQUOpARJ7NLMjTVRfWCZgCEdcNBCw ZDVaUVA4SGGmXGXcXD2XTnHjLHDvMiGaNuSfWQOuMXSfgr9CDCOvDOLdAPZpHJVdUTVaLBHaGSefTHCf SRB1Gjs5MMYgTJHzHY3QGjJiLPAlFeC8FIJzMFPbBM Qytw8PYCRzJPItCOsfIsPoZJVgNFKkXFbsSBWsMZY1ZLDtKANbCQOrTR4UJxAiRIEwTpKwKTJpTOHrMR Qrbw9JTAZdPWFyIwCfVoFwHHLnKBFkTWnyPVQpTSN3KbT5SUOoQXLtDA0KOhIpUZEuDzg3LPRnLBAyNB Vgmj5RYAFvJEVtSGFlZuUpOKLwQMQgPDvxLUVwZXR1 XbJ2TXOiPUFtBA6GZrZaLNDrUnt4BHErELMbYCXcwt6BLYSxXAXzBNWnExXzIXFwMGCrMAduRCUdOEY8 VAS3BBIgIQDmRV8DUjPvJZUkWvd2TWguARKqQSTmjs5DVIGfYDMcZYI7QJRvPRGoEZMpBZbqRXCvLPRs Cil2PWZxEKYjRM3AJxMcMOUgXnS6LzAgSGAiZQNiww 8PIFTpJQWpLGh0MNJaCLZpRGVoQZfsINYvMKRnZXCvTEQtIAQbZD3TClCkOUZjMrXbClyjHWOnMYJhhf 7ISJIpPFYaGARrBTNsSERfTRZmMLckMAKkXNGcSrExIENmFUMlBG2KAeKzYPJnOfP2HYpnQWVdPCTjxo 4MNPLdFXDrIuQ7XZHbAZLqTOIvMIrtASSxDITfNGL3 BTLfRGTyAJ6YVnDvIIEbWqY8DUEmLFKkRBZptq0YNFYnZUJqQoF9NiCzDWTzUAEwYDhoQHXfIKRrHuf6 FEKuOFNfQE0BPaXdBUNdZmVwDFOuEMFjPOWfkf5NgEObnWjzkp0YNXhMTi5DjXhvVRYgXSpyWw5gvAW7 KDPzQLUHEc0RtqBbCOYrKUXUMFyrDBOiZZOiYTLfRC UqBPY7UvT8MnD0JUKbYcAlILJnYDXwIvjxYjA3IQJhSuJ7ZnX2IdO5SpJmVTrrPIMqCJI7JYEjL8IqEY I+CH6mQZs+Ws3Ju9PybzU7fhHySTpqULHrSD8IKQLFK9WYEk== ID Date Data Source TOTAL PROTEIN,RANDOM URINE 12/03/2020 12:00:00 AM EDT eCW1 ( [facility]) Name Value Range Interpretation Code Description Data Anneliese rce(s) Supporting Document(s) 125.7 0.0-12.0 TOTAL PROTEIN,RANDOM URIN E eCW1 ([facility]) ID Date Data Source CREATININE,RANDOM URINE 12/03/2020 12:00:00 AM EDT eCW1 ([facility]) Name Value Range Interpretation Code Description Data Anneliese rce(s) Supporting Document(s) 119.0 CREATININE,RANDOM URINE eCW1 ( [facility]) ID Date Data Source Basic Metabolic Profile (BMP) 12/03/2020 12:00:00 AM EDT eCW 1 ([facility]) Name Value Range Interpretation Code Description Data Anneliese rce(s) Supporting Document(s) 12 7-18 BLOOD UREA NITROGEN eCW1 ([facility]) 93 70-100 GLUCOSE, FASTING eCW1 ([facility]) > 60.0 >60 GLOMERULAR FILTRATION RATE eCW 1 ([facility]) 139 136-145 SODIUM LEVEL eCW1 ([facility]) 1.37 0.70-1.30 CREATININE FOR GFR eCW1 ([facility]) 9.1 8.5-10.1 CALCIUM LEVEL eCW1 ([facility]) 31 21-32 CARBON DIOXIDE LEVEL eCW1 ([facility]) 103 98-107 CHLORIDE LEVEL eCW1 ([facility]) 3.7 3.5-5.1 POTASSIUM SERUM eCW1 ([facility]) ID Date Data Source [id number] 11/10/2020 09:45:32 PM EDT [facility] Name Value Range Interpretation Code Description Data Anneliese rce(s) Supporting Document(s) &PDF [facility] MOCJGp5sSeRICfUa31/KZBreMPItb8NdDGkgGWr0QPllKQSiM0IkaVnrAOHUTp1GHMHdVUXPTVTnBXWp waW [file] ICAgICAgICAgICAgICAgICAgICAgICAgICAgICAgICAgICAgICAgICAgICAgICANCiAgICAgICAgICAg ICAgICAgICAgICAgICAgICAgICAgICAgICAgICAgIC AgICAgICAgICAgICAgICAgICAgICAgICAgICAgICAgICAgICAgICAgICAgICAgICAgICAgICAgICANCi AgICAgICAgICAgICAgICAgICAgICAgICAgICAgICAgICAgICAgICAgICAgICAgICAgICAgICAgICAgIC AgICAgICAgICAgICAgICAgICAgICAgICAgICAgICAg ICAgICAgICANCiAgICAgICAgICAgICAgICAgICAgICAgICAgICAgICAgICAgICAgICAgICAgICAgICAg ICAgICAgICAgICAgICAgICAgICAgICAgICAgICAgICAgICAgICAgICAgICAgICAgICANCiAgICAgICAg ICAgICAgICAgICAgICAgICAgICAgICAgICAgICAgIC AgICAgICAgICAgICAgICAgICAgICAgICAgICAgICAgICAgICAgICAgICAgICAgICAgICAgICAgICAgIC ANCiAgICAgICAgICAgICAgICAgICAgICAgICAgICAgICAgICAgICAgICAgICAgICAgICAgICAgICAgIC AgICAgICAgICAgICAgICAgICAgICAgICAgICAgICAg ICAgICAgICAgICANCiAgICAgICAgICAgICAgICAgICAgICAgICAgICAgICAgICAgICAgICAgICAgICAg ICAgICAgICAgICAgICAgICAgICAgICAgICAgICAgICAgICAgICAgICAgICAgICAgICAgICANCiAgICAg ICAgICAgICAgICAgICAgICAgICAgICAgICAgICAgIC AgICAgICAgICAgICAgICAgICAgICAgICAgICAgICAgICAgICAgICAgICAgICAgICAgICAgICAgICAgIC AgICANCiAgICAgICAgICAgICAgICAgICAgICAgICAgICAgICAgICAgICAgICAgICAgICAgICAgICAgIC AgICAgICAgICAgICAgICAgICAgICAgICAgICAgICAg ICAgICAgICAgICAgICANCiAgICAgICAgICAgICAgICAgICAgICAgICAgICAgICAgICAgICAgICAgICAg ICAgICAgICAgICAgICAgICAgICAgICAgICAgICAgICAgICAgICAgICAgICAgICAgICAgICAgICANCjw/ rWAoK9rxmZSagdJ9O5suAl0WRn2YYN3xv0FjFWXcGI qyzgOySepZNyLyOBCfWolAVym7XXhtLT3ArLBvT0ZgV3YdCVidEB0HREZfYNMkmPGkKWIaRJZaCvA0AQ FjSDocBU8IqWXbUQbdXZXmZUBjEyQeQUMiFDOaDWHwGW6QVFNeD010xxGsMi9GQv2YMmAyKI8uxh8CDL BkCDSfGulFNyr9IGhyII9OdMSbX4KqdGPms2aJPnMf G5JJLJA2DWPmMm1XOMEzGoSmOEPuXWuwTT0aJXLvNJKXdJxitqH8ZU7DHE5kgrXiTF1XJhLfWj2wJd9H EhReX0RsP6YvMEXgWWQVBFipJV2ODEIuFLV9FYUaJWTkVDMNMyYhD07yVD0DR3Pse22dPzU2NPHfEnEo ZExmQF38oJgbayOogPXpkZkiYD9JFe6+DQplbmRvYm rDFepfMCOKQaOuTRHPBwRcVNZsPDCeVRSzUwW0DaDpYi2JLYCjTUSmMRWvWiXyOWCbDJFzWTfdCDCcKX LxDfp0FGRdXDYyDG6TKvUyDQOaRoI4CWTlECUoLSHlgl4KMEQqJMInHAB4RBMoKFEtACEmZIzdFQQsNN J5DAOmQFOtNQMrQB9SJbFaUCNlHQJ4MYNoTMCmRLQx mi0SQXIjAHVzTGvpFpFkKKCnNGRvZAoeIEHoFOV6PCI2UQPzMFNjRL6ZCfMmXOKsBIZ9VDOqGNUeBIPi wh5XVDWqJAAwArJ6AYPhOLXbEWEpENneFDSxMHPdPkX8LUUtQAYqNE0YEgOrDAMbGOV8FLNrEGBwMOMl ev7DJGLxPTOcULGeXYBsNFVlDIDkKQvbIGZsBRH1XY foQLCcQJIuOB6OCrYsDUTrXMAfFSRlEBOzJTCdzy0ZCXRuXAXrYFM2NwWdJAOzTAFzSGfeCIAcFMZ5Hg WwAFMoJWOhWE0JBgMfSTIpADI9INOcCZDeGRZwzt2IUVLlBNTyZnfyKpVpWQSfKUNcWKugPEYzJSN5Uo e7AOBiXZErLR8OFbRhYBSsKZi0SZMmSESfSJGlsj3Z HOTuSHDnQGA4PZFbGZMtAZVrXJvbVJOnOSN8Pry2WUCcQXYbHT9JDsGxOMBhKLm0BxAbHXXkMNTola9D VKNhSCAaVCo2UtDiXCViKVFmFKtiKSBrZTE9LkBrGYMfBXNnKA8UHdBsGKOrRYv8CCznMATmNYFoxs5U AKYvWWFiJWJ9EAHbDQYjUFQmUJzwQMWfWZQqECT7ZZ HhKBQsQZ7IGvWzHESyWfTiLAabLOLhJOTxqi6DIDZtSFFyOHBwNUMpNLSvQFBzUWkfYCQzTORrGCj1EA JeZMQzPD0YMaXuCMThKxOpIyPuFRIlKYUhsa5RCLOjPEQtBWE6LtVgZSAcSWUoHRpeJZCuEIIjOgK8YI KfKACvVM3ZOeXuVAFnLtP7ZkxgWJOwRREslf2IMIAs IUGfYwEvNYBrHPAxZOMkHOqvCAOsJJKgSrB8USHhHGFiAX1YBeQjUIYpIfFkFhUaZQYvZKBwyn1LJUWt VRRwWNQoDORwLSEjXVKnEUf0jpSggSFtLAf7EQ2XP3PtphUfLCBBRz4Rn944CJVfZHKhFf2ER8wwFr4p YNUvSOYVXq4TUHs3EWP0WuWsUsEmNDZfHkLjSAViPI HmO9RwLeTmKBH9NXU+BSgoRFlkDUYeIQV8AxZfKsT7PES1I6JbWrP6RGB2NZWpUI8tIIEDHo4+DQpzdG TzcQgxXOYVTgP1Ruh4XVoaFLRCLf7G ID Date Data Source NON COVERAGE SPECIALIST CYTOLOGY REQ FOR SERVI 08/11/2020 12:00:00 AM EST eC W1 ([facility]) Name Value Range Interpretation Code Description Data Anneliese rce(s) Supporting Document(s) URINE eCW1 ([facility]) ID Date Data Source URINE CULTURE 08/11/2020 12:00:00 AM EST eCW1 ([facility]) Name Value Range Interpretation Code Description Data Anneliese rce(s) Supporting Document(s) URINE CULTURE eCW1 ([facility]) ID Date Data Source UA URINALYSIS 05/01/2020 12:00:00 AM EST eCW1 ([facility]) Name Value Range Interpretation Code Description Data Anneliese rce(s) Supporting Document(s) UA URINALYSIS eCW1 ([facility]) ID Date Data Source LIPID PANEL (CARDIAC RISK) 05/01/2020 12:00:00 AM EST eCW1 ( [facility]) Name Value Range Interpretation Code Description Data Anneliese rce(s) Supporting Document(s) Cholesterol in LDL [Mass/volume] in Serum or Plasma by calculation 165 <100 LDL CHOLESTEROL eCW1 ([facility]) Triglyceride [Mass/volume] in Serum or Plasma by calculation 493 <150 TRIGLYCERIDES LEVEL eCW1 ([facility]) 6.972 <5 CHOLESTEROL RISK RATIO eCW1 ([facility]) Cholesterol [Moles/volume] in Serum or Plasma 251 <200 CHOLESTEROL LEVEL eCW1 ([facility]) Cholesterol in HDL [Moles/volume] in Serum or Plasma 36 >40 HDL CHOLESTEROL eCW1 ([facility]) 215 NON-HDL-C eCW1 ([facility]) ID Date Data Source Comprehensive Metabolic Profile (CMP) 05/01/2020 12:00:00 AM EST eCW1 ([facility]) Name Value Range Interpretation Code Description Data Anneliese rce(s) Supporting Document(s) 15 7-18 BLOOD UREA NITROGEN eCW1 ([facility]) 1.43 0.70-1.30 CREATININE FOR GFR eCW1 ([facility]) > 60.0 >60 GLOMERULAR FILTRATION RATE eCW 1 ([facility]) 115 70-100 GLUCOSE, FASTING eCW1 ([facility]) 138 136-145 SODIUM LEVEL eCW1 ([facility]) 99 98-107 CHLORIDE LEVEL eCW1 ([facility]) 34 21-32 CARBON DIOXIDE LEVEL eCW1 ([facility]) 3.2 3.5-5.1 POTASSIUM SERUM eCW1 ([facility]) 9.3 8.5-10.1 CALCIUM LEVEL eCW1 ([facility]) 61 12-78 ALT/SGPT eCW1 ([facility]) 25 7-37 AST/SGOT eCW1 ([facility]) 72 45-117 ALKALINE PHOSPHATASE eCW1 ([facility]) 0.3 0.2-1.0 BILIRUBIN,TOTAL eCW1 ([facility]) 0.9 ALBUMIN/GLOBULIN RATIO eCW1 ([facility]) 7.4 6.4-8.2 TOTAL PROTEIN eCW1 ([facility]) 3.5 3.2-5.2 ALBUMIN eCW1 ([facility]) ID Date Data Source [id number] 04/14/2020 12:00:00 AM EST eCW1 ([facility]) Name Value Range Interpretation Code Description Data Anneliese rce(s) Supporting Document(s) Albumin/Creatinine [Mass Ratio] in Urine 467.0 MALB URINE SIEMENS eCW1 ([facility]) Microalbumin/Creatinine [Ratio] in Urine 1056.5 0.0-30.0 HAYDEN/CREAT RATIO eCW1 ([facility]) Microalbumin/Creatinine [Mass Ratio] in Urine 44.2 CREATININE, URINE eCW1 ([facility]) Procedure Social History Code Duration Value Status Description Data Source(s ) Smoking 04/15/2021 12:00:00 AM EDT Never Smoker completed Never S moker eCW1 ([facility]) Alcohol intake 04/15/2021 12:00:00 AM EDT Lifetime non-drinker (finding) completed Lifetime non-drinker (finding) [facility] Smoking 03/30/2021 12:00:00 AM EDT Never Smoker completed Never S moker eCW1 ([facility]) Smoking 03/24/2021 12:00:00 AM EDT Never Smoker completed Never S moker eCW1 ([facility]) Smoking 03/24/2021 12:00:00 AM EDT Never Smoked Cigarettes com pleted Never Smoked Cigarettes MEDENT ([facility]) Alcohol intake 02/23/2021 12:00:00 AM EDT Lifetime non-drinker (finding) completed Lifetime non-drinker (finding) [facility] Alcohol intake 11/04/2020 12:00:00 AM EDT Lifetime non-drinker (finding) completed Lifetime non-drinker (finding) [facility] Smoking 09/17/2020 12:00:00 AM EDT Never Smoker completed Never S moker eCW1 ([facility]) Smoking 09/05/2020 12:00:00 AM EDT Never Smoker completed Never S moker eCW1 ([facility]) Smoking 08/11/2020 12:00:00 AM EST Never Smoker completed Never S moker eCW1 ([facility]) Smoking 08/11/2020 12:00:00 AM EST Never Smoker completed Never S moker eCW1 ([facility]) Smoking 08/11/2020 12:00:00 AM EST Never Smoker completed Never S moker eCW1 ([facility]) Smoking 08/11/2020 12:00:00 AM EST Never Smoker completed Never S moker eCW1 ([facility]) Smoking 08/11/2020 12:00:00 AM EST Never Smoker completed Never S moker eCW1 ([facility]) Smoking 07/03/2020 12:00:00 AM EST Never Smoker completed Never S moker eCW1 ([facility]) Smoking 07/03/2020 12:00:00 AM EST Never Smoker completed Never S moker eCW1 ([facility]) Smoking 07/03/2020 12:00:00 AM EST Never Smoker completed Never S moker eCW1 ([facility]) Smoking 07/03/2020 12:00:00 AM EST Never Smoker completed Never S moker eCW1 ([facility]) Smoking 07/03/2020 12:00:00 AM EST Never Smoker completed Never S moker eCW1 ([facility]) Smoking 07/03/2020 12:00:00 AM EST Never Smoker completed Never S moker eCW1 ([facility]) Smoking 07/03/2020 12:00:00 AM EST Never Smoker completed Never S moker eCW1 ([facility]) Smoking 07/03/2020 12:00:00 AM EST Never Smoker completed Never S moker eCW1 ([facility]) Smoking 07/03/2020 12:00:00 AM EST Never Smoker completed Never S moker eCW1 ([facility]) Alcohol intake 07/01/2020 12:00:00 AM EST Never completed [facility] Smoking 07/01/2020 12:00:00 AM EST Never smoker completed Never s moker [facility] Alcohol intake 06/03/2020 12:00:00 AM EST Never completed [facility] Smoking 06/03/2020 12:00:00 AM EST Never smoker completed Never s moker [facility] Smoking 06/02/2020 12:00:00 AM EST Never Smoker completed Never S moker eCW1 ([facility]) Smoking 06/02/2020 12:00:00 AM EST Never Smoker completed Never S moker eCW1 ([facility]) Smoking 06/02/2020 12:00:00 AM EST Never Smoker completed Never S moker eCW1 ([facility]) Smoking 06/02/2020 12:00:00 AM EST Never Smoker completed Never S moker eCW1 ([facility]) Tobacco use and exposure 05/07/2020 12:00:00 AM EST Current user co mpleted Current user [facility] Smoking 05/07/2020 12:00:00 AM EST Never smoker completed Never s msker [facility] Alcohol intake 05/07/2020 12:00:00 AM EST Never completed [facility] Smoking 05/07/2020 12:00:00 AM EST Never smoker completed Never s moker [facility] Smoking 05/01/2020 12:00:00 AM EST Never Smoker completed Never S moker eCW1 ([facility]) Smoking 05/01/2020 12:00:00 AM EST Never Smoker completed Never S moker eCW1 ([facility]) Smoking 04/10/2020 12:00:00 AM EDT Never Smoker completed Never S moker eCW1 ([facility]) Smoking 04/10/2020 12:00:00 AM EDT Never Smoker completed Never S moker eCW1 ([facility]) Smoking 04/10/2020 12:00:00 AM EDT Never Smoker completed Never S moker eCW1 ([facility]) Smoking 04/10/2020 12:00:00 AM EDT Never Smoker completed Never S moker eCW1 ([facility]) Smoking 04/03/2020 12:00:00 AM EDT Never Smoker completed Never S moker eCW1 ([facility]) Smoking 04/03/2020 12:00:00 AM EDT Never Smoker completed Never S moker eCW1 ([facility]) Smoking 04/03/2020 12:00:00 AM EDT Never Smoker completed Never S moker eCW1 ([facility]) Smoking 04/03/2020 12:00:00 AM EDT Never Smoker completed Never S moker eCW1 ([facility]) Vital Signs ID Date Data Source UNK Name Value Range Interpretation Code Description Data Source(s) Systolic blood pressure 152 mm[Hg] 152 mm[Hg] [facility] Diastolic blood pressure 92 mm[Hg] 92 mm[Hg] [facility] Heart rate 69 /min 69 /min [facility] Body height 190.5 cm 190.5 cm [facility] Body weight 120.203 kg 120.203 kg [facility] Body mass index (BMI) [Ratio] 33.12 kg/m2 33.12 kg/m2 [facility] Oxygen saturation in Arterial blood by Pulse oximetry 100 % 100 % [facility] Heart rate 70 /min 70 /min eCW1 ([facility]) Respiratory rate 18 /min 18 /min eCW1 ([facility]) Body temperature 96.3 [degF] 96.3 [degF] W1 ( [facility]) Systolic blood pressure 140 mm[Hg] 140 mm[Hg] e CW1 ([facility]) Diastolic blood pressure 84 mm[Hg] 84 mm[Hg] eCW1 ([facility]) Body weight 261 [lb_av] 261 [lb_av] eCW1 ([facility]) Body weight 118.39 kg 118.39 kg W1 ([facility]) Body height 74 [in_i] 74 [in_i] W1 ([facility]) Body mass index (BMI) [Ratio] 33.51 kg/m2 33.51 kg/m2 [facility] ([facility]) Systolic blood pressure 120 mm[Hg] 120 mm[Hg] M EDENT ([facility]) Diastolic blood pressure 70 mm[Hg] 70 mm[Hg] MEDENT ([facility]) Heart rate 67 /min 67 /min [facility]) Oxygen saturation in Arterial blood by Pulse oximetry 98 % 98 % [facility] ([facility]) Body height 75 [in_i] 75 [in_i] [facility]) 6'3" Body weight 260.00 [lb_av] 260.00 [lb_av] MEDEN T ([facility]) Body mass index (BMI) [Ratio] 32.5 kg/m2 32.5 k g/m2 [facility] ([facility]) Boyce body weight 196 [lb_av] 196 [lb_av] MEDEN T ([facility]) Body weight 117.936 kg 117.936 kg [facility] ([facility]) Body surface area Derived from formula 2.45 m2 2.45 m2 [facility] ([facility]) Systolic blood pressure 160 mm[Hg] 160 mm[Hg] [facility] Diastolic blood pressure 110 mm[Hg] 110 mm[Hg] [facility] Heart rate 68 /min 68 /min [facility] Body height 190.5 cm 190.5 cm [facility] Body weight 119.75 kg 119.75 kg [facility] Body mass index (BMI) [Ratio] 33.00 kg/m2 33.00 kg/m2 [facility] Oxygen saturation in Arterial blood by Pulse oximetry 97 % 97 % [facility] [place] body weight 196 [lb_av] 196 [lb_av] MEDEN T ([facility]) Body weight 119.297 kg 119.297 kg [facility] ([facility]) Body surface area Derived from formula 2.47 m2 2.47 m2 [facility] ([facility]) Systolic blood pressure 142 mm[Hg] 142 mm[Hg] M EDENT ([facility]) Diastolic blood pressure 84 mm[Hg] 84 mm[Hg] [facility] ([facility]) Heart rate 70 /min 70 /min [facility] ([facility]) Oxygen saturation in Arterial blood by Pulse oximetry 98 % 98 % [facility] ([facility], ) Body height 75 [in_i] 75 [in_i] [facility] ([facility], ) 6'3" Body weight 263.00 [lb_av] 263.00 [lb_av] MEDEN T ([facility], ) Body mass index (BMI) [Ratio] 32.9 kg/m2 32.9 k g/m2 [facility] ([facility], ) Body weight 254.4 [lb_av] 254.4 [lb_av] eCW1 ([facility]) Body height 74 [in_i] 74 [in_i] eCW1 ([facility]) Body mass index (BMI) [Ratio] 32.66 kg/m2 32.66 kg/m2 W1 ([facility]) Heart rate 75 /min 75 /min eCW1 ([facility]) Respiratory rate 18 /min 18 /min eCW1 ([facility]) Body temperature 97.5 [degF] 97.5 [degF] eCW1 ( [facility]) Systolic blood pressure 130 mm[Hg] 130 mm[Hg] e CW1 ([facility]) Diastolic blood pressure 78 mm[Hg] 78 mm[Hg] eCW1 ([facility]) Systolic blood pressure 136 mm[Hg] 136 mm[Hg] [facility] Diastolic blood pressure 70 mm[Hg] 70 mm[Hg] [facility] Heart rate 76 /min 76 /min [facility] Body weight 116.121 kg 116.121 kg [facility] Body mass index (BMI) [Ratio] 32.00 kg/m2 32.00 kg/m2 [facility] Oxygen saturation in Arterial blood by Pulse oximetry 98 % 98 % [facility] Body weight 255 [lb_av] 255 [lb_av] eCW1 ([facility]) Body height 74 [in_i] 74 [in_i] eCW1 ([facility]) Body mass index (BMI) [Ratio] 32.74 kg/m2 32.74 kg/m2 eCW1 ([facility]) Heart rate 88 /min 88 /min eCW1 ([facility]) Respiratory rate 18 /min 18 /min eCW1 ([facility]) Body temperature 97.5 [degF] 97.5 [degF] eCW1 ( [facility]) Systolic blood pressure 156 mm[Hg] 156 mm[Hg] e CW1 ([facility]) Diastolic blood pressure 113 mm[Hg] 113 mm[Hg] eCW1 ([facility]) Body weight 257 [lb_av] 257 [lb_av] eCW1 ([facility]) Body height 74 [in_i] 74 [in_i] eCW1 ([facility]) Body mass index (BMI) [Ratio] 32.99 kg/m2 32.99 kg/m2 eCW1 ([facility]) Heart rate 118 /min 118 /min eCW1 ([facility]) Respiratory rate 18 /min 18 /min eCW1 ([facility]) Body temperature 96.4 [degF] 96.4 [degF] eCW1 ( [facility]) Systolic blood pressure 144 mm[Hg] 144 mm[Hg] e CW1 ([facility]) Diastolic blood pressure 102 mm[Hg] 102 mm[Hg] eCW1 ([facility]) Body weight 254 [lb_av] 254 [lb_av] eCW1 ([facility]) Body height 74 [in_i] 74 [in_i] eCW1 ([facility]) Body mass index (BMI) [Ratio] 32.61 kg/m2 32.61 kg/m2 eCW1 ([facility]) Heart rate 73 /min 73 /min eCW1 ([facility]) Respiratory rate 18 /min 18 /min eCW1 ([facility]) Body temperature 97.4 [degF] 97.4 [degF] eCW1 ( [facility]) Systolic blood pressure 126 mm[Hg] 126 mm[Hg] e CW1 ([facility]) Diastolic blood pressure 78 mm[Hg] 78 mm[Hg] eCW1 ([facility]) Systolic blood pressure 147 mm[Hg] 147 mm[Hg] [facility] Diastolic blood pressure 100 mm[Hg] 100 mm[Hg] [facility] Heart rate 87 /min 87 /min [facility] Body height 190.5 cm 190.5 cm [facility] Body weight 117.482 kg 117.482 kg [facility] Body mass index (BMI) [Ratio] 32.37 kg/m2 32.37 kg/m2 [facility] Oxygen saturation in Arterial blood by Pulse oximetry 98 % 98 % [facility] Body height 75 [in_i] 75 [in_i] [facility] ([facility], ) 6'3" Body weight 256.38 [lb_av] 256.38 [lb_av] MEDEN T ([facility], ) Body mass index (BMI) [Ratio] 32.0 kg/m2 32.0 k g/m2 [facility] ([facility], ) [place]ce body weight 196 [lb_av] 196 [lb_av] MEDEN T ([facility], ) Body weight 116.292 kg 116.292 kg [facility] ([facility], ) Body surface area Derived from formula 2.44 m2 2.44 m2 [facility] ([facility], ) Heart rate 74 /min 74 /min [facility] ([facility] ) Systolic blood pressure 171 mm[Hg] 171 mm[Hg] M EDENT ([facility], ) Diastolic blood pressure 101 mm[Hg] 101 mm[Hg] [facility] ) Body height 75 [in_i] 75 [in_i] [facility] ([facility], ) 6'3" Body weight 256.38 [lb_av] 256.38 [lb_av] MEDEN T ([facility], ) Body mass index (BMI) [Ratio] 32.0 kg/m2 32.0 k g/m2 [facility] ([facility], ) Boyce body weight 196 [lb_av] 196 [lb_av] MEDEN T ([facility], ) Body weight 116.292 kg 116.292 kg MED[facility] ([facility], ) Body surface area Derived from formula 2.44 m2 2.44 m2 [facility] ([facility], ) Body temperature 97.7 [degF] 97.7 [degF] [facility] ([facility]) Systolic blood pressure 150 mm[Hg] 150 mm[Hg] [facility] Diastolic blood pressure 100 mm[Hg] 100 mm[Hg] [facility] Heart rate 96 /min 96 /min [facility] Body weight 117.935 kg 117.935 kg [facility] Body mass index (BMI) [Ratio] 32.50 kg/m2 32.50 kg/m2 [facility] Oxygen saturation in Arterial blood by Pulse oximetry 98 % 98 % [facility] Systolic blood pressure 140 mm[Hg] 140 mm[Hg] [facility] Diastolic blood pressure 80 mm[Hg] 80 mm[Hg] [facility] Heart rate 75 /min 75 /min [facility] Body height 190.5 cm 190.5 cm [facility] Body weight 117.482 kg 117.482 kg [facility] Body mass index (BMI) [Ratio] 32.37 kg/m2 32.37 kg/m2 [facility] Oxygen saturation in Arterial blood by Pulse oximetry 98 % 98 % [facility] Body weight 255 [lb_av] 255 [lb_av] W1 ([facility]) Body height 74 [in_i] 74 [in_i] eCW1 ([facility]) Body mass index (BMI) [Ratio] 32.74 kg/m2 32.74 kg/m2 [facility] ([facility]) Heart rate 67 /min 67 /min W1 ([facility]) Respiratory rate 18 /min 18 /min eCW1 ([facility]) Body temperature 97.1 [degF] 97.1 [degF] eCW1 ( [facility]) Systolic blood pressure 128 mm[Hg] 128 mm[Hg] e CW1 ([facility]) Diastolic blood pressure 68 mm[Hg] 68 mm[Hg] eCW1 ([facility]) Systolic blood pressure 132 mm[Hg] 132 mm[Hg] [facility] Diastolic blood pressure 78 mm[Hg] 78 mm[Hg] [facility] Heart rate 78 /min 78 /min [facility] Body height 190.5 cm 190.5 cm [facility] Body weight 115.214 kg 115.214 kg [facility] Body mass index (BMI) [Ratio] 31.75 kg/m2 31.75 kg/m2 [facility] Oxygen saturation in Arterial blood by Pulse oximetry 97 % 97 % [facility] Body weight 253 [lb_av] 253 [lb_av] W1 ([facility]) Body height 74 [in_i] 74 [in_i] W1 ([facility]) Body mass index (BMI) [Ratio] 32.48 kg/m2 32.48 kg/m2 W1 ([facility]) Heart rate 85 /min 85 /min eCW1 ([facility]) Respiratory rate 18 /min 18 /min eCW1 ([facility]) Body temperature 97.0 [degF] 97.0 [degF] eCW1 ( [facility] [facility]) Systolic blood pressure 178 mm[Hg] 178 mm[Hg] e CW1 ([facility]) Diastolic blood pressure 130 mm[Hg] 130 mm[Hg] eCW1 ([facility]) Systolic blood pressure 145 mm[Hg] 145 mm[Hg] [facility] Diastolic blood pressure 86 mm[Hg] 86 mm[Hg] [facility] Heart rate 78 /min 78 /min [facility] Body height 190.5 cm 190.5 cm [facility] Body weight 115.214 kg 115.214 kg [facility] Body mass index (BMI) [Ratio] 31.75 kg/m2 31.75 kg/m2 [facility] Oxygen saturation in Arterial blood by Pulse oximetry 99 % 99 % [facility] Body temperature 97.1 [degF] 97.1 [degF] MEDENT ([facility] ) Body weight 261 [lb_av] 261 [lb_av] eCW1 ([facility]) Body height 74 [in_i] 74 [in_i] eCW1 ([facility]) Body mass index (BMI) [Ratio] 33.51 kg/m2 33.51 kg/m2 eCW1 ([facility]) Heart rate 86 /min 86 /min eCW1 ([facility]) Respiratory rate 20 /min 20 /min eCW1 ([facility]) Body temperature 96.4 [degF] 96.4 [degF] eCW1 ( [facility]) Systolic blood pressure 134 mm[Hg] 134 mm[Hg] e CW1 ([facility]) Diastolic blood pressure 84 mm[Hg] 84 mm[Hg] eCW1 ([facility]) Body weight 258.2 [lb_av] 258.2 [lb_av] eCW1 ([facility]) Body height 74 [in_i] 74 [in_i] eCW1 ([facility]) Body mass index (BMI) [Ratio] 33.15 kg/m2 33.15 kg/m2 eCW1 ([facility]) Heart rate 73 /min 73 /min eCW1 ([facility]) Respiratory rate 18 /min 18 /min eCW1 ([facility]) Body temperature 97.1 [degF] 97.1 [degF] eCW1 ( [facility]) Systolic blood pressure 142 mm[Hg] 142 mm[Hg] e CW1 ([facility]) Diastolic blood pressure 82 mm[Hg] 82 mm[Hg] eCW1 ([facility]) Body weight 261 [lb_av] 261 [lb_av] eCW1 ([facility]) Body height 74 [in_i] 74 [in_i] eCW1 ([facility]) Body mass index (BMI) [Ratio] 33.51 kg/m2 33.51 kg/m2 eCW1 ([facility]) Heart rate 80 /min 80 /min eCW1 ([facility]) Respiratory rate 19 /min 19 /min eCW1 ([facility]) Body temperature 96.0 [degF] 96.0 [degF] eCW1 ( [facility]) Systolic blood pressure 176 mm[Hg] 176 mm[Hg] e CW1 ([facility]) Diastolic blood pressure 108 mm[Hg] 108 mm[Hg] eCW1 ([facility]) Body weight 262.4 [lb_av] 262.4 [lb_av] eCW1 ([facility]) Body height 74 [in_i] 74 [in_i] eCW1 ([facility]) Body mass index (BMI) [Ratio] 33.69 kg/m2 33.69 kg/m2 eCW1 ([facility]) Heart rate 85 /min 85 /min eCW1 ([facility]) Respiratory rate 18 /min 18 /min eCW1 ([facility]) Body temperature 96.7 [degF] 96.7 [degF] eCW1 ( [facility]) Systolic blood pressure 144 mm[Hg] 144 mm[Hg] e CW1 ([facility]) Diastolic blood pressure 90 mm[Hg] 90 mm[Hg] eCW1 ([facility]) Patient Treatment Plan of Care Planned Activity Planned Date Details Description Data Source (s) Lisinopril 30 MG Oral Tablet 04/15/2021 12:00:00 AM EDT [facility] Hydrochlorothiazide 25 MG Oral Tablet 04/04/2021 12:00:00 AM EDT [facility] Aspirin 81 MG Delayed Release Oral Tablet 02/23/2021 12:00:00 AM ED T [facility] Lisinopril 20 MG Oral Tablet 02/23/2021 12:00:00 AM EDT [facility] Lisinopril 40 MG Oral Tablet 11/04/2020 12:00:00 AM EDT [facility] Rosuvastatin calcium 10 MG Oral Tablet 09/22/2020 12:00:00 AM EDT [facility] Docusate Sodium 50 MG / sennosides, HALFWAY 8.6 MG Oral Ta blet [SENOKOT-S] 09/05/2020 12:00:00 AM EDT eCW1 ([facility]) Docusate Sodium 50 MG / sennosides, HALFWAY 8.6 MG Oral Ta blet [SENOKOT-S] 09/05/2020 12:00:00 AM EDT eCW1 ([facility]) Docusate Sodium 50 MG / sennosides, HALFWAY 8.6 MG Oral Ta blet [SENOKOT-S] 09/05/2020 12:00:00 AM EDT eCW1 ([facility]) Rosuvastatin calcium 10 MG Oral Tablet 09/01/2020 12:00:00 AM EDT [facility] Cephalexin 500 MG Oral Capsule 08/11/2020 12:00:00 AM EST eCW1 ([facility]) Cephalexin 500 MG Oral Capsule 08/11/2020 12:00:00 AM EST eCW1 ([facility]) Cephalexin 500 MG Oral Capsule 08/11/2020 12:00:00 AM EST eCW1 ([facility]) Cephalexin 500 MG Oral Capsule 08/11/2020 12:00:00 AM EST eCW1 ([facility]) Cephalexin 500 MG Oral Capsule 08/11/2020 12:00:00 AM EST eCW1 ([facility]) Hydrochlorothiazide 25 MG Oral Tablet 08/07/2020 12:00:00 AM EST [facility] Rosuvastatin calcium 10 MG Oral Tablet 07/01/2020 12:00:00 AM EST [facility] Polyvinyl Alcohol 0.014 ML/ML Ophthalmic Solution 06/17/2020 12: 00:00 AM EST [facility] Lidocaine 5 % 06/12/2020 12:00:00 AM EST eCW1 ([facility]) Lidocaine 5 % 06/12/2020 12:00:00 AM EST eCW1 ([facility]) Lidocaine 5 % 06/12/2020 12:00:00 AM EST eCW1 ([facility]) Lidocaine 5 % 06/12/2020 12:00:00 AM EST eCW1 ([facility]) Rosuvastatin calcium 10 MG Oral Tablet 06/03/2020 12:00:00 AM EST [facility] 24 HR Diltiazem Hydrochloride 180 MG Extended Release Oral Capsule 05/22/2020 12:00:00 AM EST [facility] Lisinopril 40 MG Oral Tablet 05/22/2020 12:00:00 AM EST [facility] Lisinopril 30 MG Oral Tablet 05/13/2020 12:00:00 AM EST eCW1 ([facility]) 24 HR Diltiazem Hydrochloride 180 MG Extended Release Oral Capsule 05/07/2020 12:00:00 AM EST [facility] atorvastatin 40 MG Oral Tablet 05/01/2020 12:00:00 AM EST eCW1 ([facility]) atorvastatin 40 MG Oral Tablet 05/01/2020 12:00:00 AM EST eCW1 ([facility]) Lisinopril 20 MG Oral Tablet 05/01/2020 12:00:00 AM EST eCW1 ([facility]) atorvastatin 40 MG Oral Tablet 05/01/2020 12:00:00 AM EST eCW1 ([facility]) Lisinopril 20 MG Oral Tablet 05/01/2020 12:00:00 AM EST eCW1 ([facility]) Lisinopril 10 MG Oral Tablet 04/22/2020 12:00:00 AM EST [facility] Lisinopril 10 MG Oral Tablet 04/21/2020 12:00:00 AM EST eCW1 ([facility]) Isosorbide Dinitrate 30 MG Oral Tablet 04/21/2020 12:00:00 AM EST eCW1 ([facility]) Lisinopril 10 MG Oral Tablet 04/21/2020 12:00:00 AM EST eCW1 ([facility]) Isosorbide Dinitrate 30 MG Oral Tablet 04/21/2020 12:00:00 AM EST eCW1 ([facility]) Isosorbide Dinitrate 30 MG Oral Tablet 04/21/2020 12:00:00 AM EST eCW1 ([facility]) Isosorbide Dinitrate 30 MG Oral Tablet 04/21/2020 12:00:00 AM EST eCW1 ([facility]) Nitroglycerin 0.3 MG Sublingual Tablet 04/09/2020 12:00:00 AM EDT [facility] Aspirin 81 MG Delayed Release Oral Tablet 04/09/2020 12:00:00 AM ED T [facility] Hydrochlorothiazide 25 MG Oral Tablet 04/09/2020 12:00:00 AM EDT [facility] atorvastatin 40 MG Oral Tablet 04/08/2020 12:00:00 AM EDT [facility] Nitroglycerin 0.3 MG Sublingual Tablet 04/08/2020 12:00:00 AM EDT eCW1 ([facility]) Nitroglycerin 0.3 MG Sublingual Tablet 04/08/2020 12:00:00 AM EDT eCW1 ([facility]) Nitroglycerin 0.3 MG Sublingual Tablet 04/08/2020 12:00:00 AM EDT eCW1 ([facility]) Nitroglycerin 0.3 MG Sublingual Tablet 04/08/2020 12:00:00 AM EDT eCW1 ([facility]) Nitroglycerin 0.3 MG Sublingual Tablet 04/08/2020 12:00:00 AM EDT eCW1 ([facility]) pregabalin 150 MG Oral Capsule 04/03/2020 12:00:00 AM EDT [facility] meloxicam 15 MG Oral Tablet 04/03/2020 12:00:00 AM EDT [facility] Aspirin 81 MG Delayed Release Oral Tablet 04/03/2020 12:00:00 AM ED T eCW1 ([facility]) atorvastatin 80 MG Oral Tablet 04/03/2020 12:00:00 AM EDT eCW1 ([facility]) Aspirin 81 MG Delayed Release Oral Tablet 04/03/2020 12:00:00 AM ED T eCW1 ([facility]) Hydrochlorothiazide 25 MG Oral Tablet 04/03/2020 12:00:00 AM EDT eCW1 ([facility]) Aspirin 81 MG Delayed Release Oral Tablet 04/03/2020 12:00:00 AM ED T eCW1 ([facility]) atorvastatin 80 MG Oral Tablet 04/03/2020 12:00:00 AM EDT eCW1 ([facility]) Hydrochlorothiazide 25 MG Oral Tablet 04/03/2020 12:00:00 AM EDT eCW1 ([facility]) Aspirin 81 MG Delayed Release Oral Tablet 04/03/2020 12:00:00 AM ED T eCW1 ([facility]) atorvastatin 80 MG Oral Tablet 04/03/2020 12:00:00 AM EDT eCW1 ([facility]) Hydrochlorothiazide 25 MG Oral Tablet 04/03/2020 12:00:00 AM EDT eCW1 ([facility]) Aspirin 81 MG Delayed Release Oral Tablet 04/03/2020 12:00:00 AM ED T eCW1 ([facility]) atorvastatin 80 MG Oral Tablet 04/03/2020 12:00:00 AM EDT eCW1 ([facility]) Hydrochlorothiazide 25 MG Oral Tablet 04/03/2020 12:00:00 AM EDT eCW1 ([facility]) atorvastatin 80 MG Oral Tablet 04/03/2020 12:00:00 AM EDT eCW1 ([facility]) Clonidine Hydrochloride 0.1 MG Oral Tablet 04/03/2020 12:00:00 AM E DT eCW1 ([facility]) Hydrochlorothiazide 25 MG Oral Tablet 04/03/2020 12:00:00 AM EDT eCW1 ([facility]) Isosorbide Dinitrate 30 MG Oral Tablet 04/03/2020 12:00:00 AM EDT eCW1 ([facility]) Aspirin 81 MG Delayed Release Oral Tablet 04/03/2020 12:00:00 AM ED T eCW1 ([facility]) atorvastatin 80 MG Oral Tablet 04/03/2020 12:00:00 AM EDT eCW1 ([facility]) Clonidine Hydrochloride 0.1 MG Oral Tablet 04/03/2020 12:00:00 AM E DT eCW1 ([facility]) Hydrochlorothiazide 25 MG Oral Tablet 04/03/2020 12:00:00 AM EDT eCW1 ([facility]) Isosorbide Dinitrate 30 MG Oral Tablet 04/03/2020 12:00:00 AM EDT eCW1 ([facility]) Aspirin 81 MG Delayed Release Oral Tablet 04/03/2020 12:00:00 AM ED T eCW1 ([facility]) atorvastatin 80 MG Oral Tablet 04/03/2020 12:00:00 AM EDT eCW1 ([facility]) Clonidine Hydrochloride 0.1 MG Oral Tablet 04/03/2020 12:00:00 AM E DT eCW1 ([facility]) Hydrochlorothiazide 25 MG Oral Tablet 04/03/2020 12:00:00 AM EDT eCW1 ([facility]) Isosorbide Dinitrate 30 MG Oral Tablet 04/03/2020 12:00:00 AM EDT eCW1 ([facility]) Aspirin 81 MG Delayed Release Oral Tablet 04/03/2020 12:00:00 AM ED T eCW1 ([facility]) Aspirin 81 MG Delayed Release Oral Tablet 04/03/2020 12:00:00 AM ED T eCW1 ([facility]) Hydrochlorothiazide 25 MG Oral Tablet 04/03/2020 12:00:00 AM EDT eCW1 ([facility]) Aspirin 81 MG Delayed Release Oral Tablet 04/03/2020 12:00:00 AM ED T eCW1 ([facility]) Hydrochlorothiazide 25 MG Oral Tablet 04/03/2020 12:00:00 AM EDT eCW1 ([facility]) albuterol (PROVENTIL HFA;VENTOLIN HFA) 108 (90 Base) M CG/ACT inhaler 03/27/2020 12:00:00 AM EDT [facility] Albuterol Sulfate HFA 108 (90 Base) MCG/ACT 03/27/2020 12:00:00 AM EDT eCW1 ([facility]) Albuterol Sulfate HFA 108 (90 Base) MCG/ACT 03/27/2020 12:00:00 AM EDT eCW1 ([facility]) Albuterol Sulfate HFA 108 (90 Base) MCG/ACT 03/27/2020 12:00:00 AM EDT eCW1 ([facility]) Omeprazole 20 MG Delayed Release Oral Capsule 02/07/2020 12:00:00 A M EDT [facility] Lisinopril 20 MG Oral Tablet [facility] Diltiazem Hydrochloride 30 MG Oral Tablet [facility]
--- NOTE | 2021-04-23 04:32 | REPVR ---
PROCEDURE INFORMATION: Exam: CT Abdomen And Pelvis Without Contrast Exam date and time: 04/23/2021 3:11 AM Age: 40 years old Clinical indication: Abdominal pain; Flank; Prior surgery; Surgery date: Post-operative (0-2 days); Surgery type: Ureteral stent left; Additional info: Left sided abd pain S/P ureteral stent TECHNIQUE: Imaging protocol: Computed tomography of the abdomen and pelvis without contrast. Radiation optimization: All CT scans at this facility use at least one of these dose optimization techniques: automated exposure control; mA and/or kV adjustment per patient size (includes targeted exams where dose is matched to clinical indication); or iterative reconstruction. COMPARISON: CT ABD PELVIS W/O FOL BY WIT 04/10/2021 3:17 PM FINDINGS: Lungs: Minimal bilateral lower lobe infiltrates, left greater than right with coarse interstitium and minimal fibro-atelectatic change. Liver: Normal. No mass. Gallbladder and bile ducts: Normal. No calcified stones. No ductal dilation. Pancreas: Normal. No ductal dilation. Spleen: Normal. No splenomegaly. Adrenal glands: Normal. No mass. Kidneys and ureters: Minimal nonobstructing left renal calculus. Double-J left ureteral stent in position. No hydronephrosis. Mild left periureteral edema which is not unusual with a stent. Stomach and bowel: Unremarkable. No obstruction. No mucosal thickening. Appendix: A normal appendix is seen. Intraperitoneal space: Unremarkable. No free air. No significant fluid collection. Vasculature: Unremarkable. No abdominal aortic aneurysm. Lymph nodes: Unremarkable. No enlarged lymph nodes. Urinary bladder: Minimal gas in the urinary bladder. Reproductive: Unremarkable as visualized. Bones/joints: Unremarkable. No acute fracture. Soft tissues: Unremarkable. IMPRESSION: 1. Interval placement of double-J left ureteral stent since 04/10/2021 with mild left periureteral edema which is not unusual with recent placement of a stent. 2. Small nonobstructing left renal calculus. 3. Minimal bilateral lower lobe infiltrates, left greater than right with slight coarsening of interstitium and minimal fibro-atelectatic change. Electronically signed by: Tommie Khalil On 04/23/2021 04:32:09 AM
[2021-04-23] MEDS ORDERED: NS 1,000 ML IV SCH ×2 (05:15→10:20)
[2021-04-23] MEDS ORDERED: POTASSIUM CHLORIDE 10MEQ SR TABLET PO ONE (05:15)
[2021-04-23] MEDS ORDERED: ONDANSETRON 4MG/2ML VIAL IV PRN (05:15)
[2021-04-23] MEDS ORDERED: MORPHINE 4 MG/ML 1ML VIAL/SYRINGE (J2270) IV PRN (05:15)
[2021-04-23] MEDS ORDERED: ACETAMINOPHEN TAB 650MG DOSE (2X325MG) PO PRN (05:15)
[2021-04-23] MEDS ORDERED: MAALOX 30 ML SUSP *UDC PO PRN (05:15)
[2021-04-23] MEDS ORDERED: NS 500 ML IV ONE (05:15)
[2021-04-23] MEDS ORDERED: MOM 30ML SUSPENSION UDC PO PRN (05:15)
--- NOTE | 2021-04-23 05:16 | HPEPDOC ---
[facility] Medical History & Physical Date of Admission Apr 23, 2021 Date of Service: Apr 23, 2021 Attending Physician: SOFY LOFTON MD History and Physical CHIEF COMPLAINT: [40 y/o male c/o intractable left flank pain x1 day] HISTORY OF PRESENT ILLNESS: [This is a 40 y/o male with a pmh of hld, htn and cassandra who presents to our ed on 04/23 for evaluation of intractable left flank pain that began today. Of note, patient underwent cystoscopy with left sided ureteral stent placement and basket stone removal just yesterday 04/22. Patient states that he has not felt well since the surgery and has had severe pain in his left flank that is radiating across his abdomen. Patient states that this p ain is much different than his stone pain pre surgery. Patient admits to some associated fever and nausea, for which he has been taking toradol at home. Patient apparently has had a few episodes of lightheadedness secondary to his pain, one episode in which caused him to fall, however he was unhurt. Patient, at the time of my exam, denies any chills, vomiting, poor oral intake, dysuria, constipation, diarrhea, headache, chest pain, palpitations, sob, pedal edema, syncope, paresthesias. Patient also complains of some itchy, burning red eyes b/l. Denies vision changes, eye pain.] PAST MEDICAL HISTORY: 1. [See HPI PAST SURGICAL HISTORY: 1. [See HPI SOCIAL HISTORY: Tobacco use:[Denies] ETOH: [Denies] Illicit drug use: [Denies] FAMILY HISTORY: ALLERGIES: Please see below. REVIEW OF SYSTEMS: CONSTITUTIONAL: [Admits to fever, denies chills]. HEENT: [Denies uri sx. C/o itchy, red eyes b/l]. CARDIOVASCULAR: [Denies chest pain, palpitations]. RESPIRATORY: [Denies sob, wheezing]. GASTROINTESTINAL: [See HPI]. GENITOURINARY: [Denies dysuria]. SKIN: [Denies rash]. MUSCULOSKELETAL: [Denies acute joint/back pain]. NEUROLOGICAL: [Denies syncope, paresthesias]. ENDOCRINE: [Denies hx of DM]. HEMATOLOGIC/LYMPHATIC: [Denies hx of vte]. HOME MEDICATIONS: Please see below. PHYSICAL EXAMINATION: VITAL SIGNS: Please see below. GENERAL APPEARANCE: [This is a 40 y/o male who is alert and oriented to all questioning. he does not appear to be in any acute distress]. HEENT: [No mass or lesion. B/l conjunctivae are injected with some clear discharge vs. tears b/l. No scleral icterus. Nares patent. Oral mucosa moist]. CARDIOVASCULAR: [Regular rate, rhythm. No murmurs, urbs, gallops]. LUNGS: [Good air flow b/l. No wheezing, rales, rhonchi]. ABDOMEN: [Soft, nondistended]. MUSCULOSKELETAL: [No joint deformity noted]. EXTREMITIES: [No pedal edema appreciated. Pulses intact. No overlying skin changes]. NEUROLOGICAL: [Speech clear. A+Ox3. No focal deficits]. PSYCHIATRIC: [Mood and affect appear appropriate]. LABORATORY DATA: See below. IMAGING: [CT Abd/pelvis: FINDINGS: Lungs: Minimal bilateral lower lobe infiltrates, left greater than right with coarse interstitium and minimal fibro-atelectatic change. Liver: Normal. No mass. Gallbladder and bile ducts: Normal. No calcified stones. No ductal dilation. Pancreas: Normal. No ductal dilation. Spleen: Normal. No splenomegaly. Adrenal glands: Normal. No mass. Kidneys and ureters: Minimal nonobstructing left renal calculus. Double-J left ureteral stent in position. No hydronephrosis. Mild left periureteral edema which is not unusual with a stent. Stomach and bowel: Unremarkable. No obstruction. No mucosal thickening. Appendix: A normal appendix is seen. Intraperitoneal space: Unremarkable. No free air. No significant fluid collection. Vasculature: Unremarkable. No abdominal aortic aneurysm. Lymph nodes: Unremarkable. No enlarged lymph nodes. Urinary bladder: Minimal gas in the urinary bladder. Reproductive: Unremarkable as visualized. Bones/joints: Unremarkable. No acute fracture. Soft tissues: Unremarkable. IMPRESSION: 1. Interval placement of double-J left ureteral stent since 04/10/2021 with mild left periureteral edema which is not unusual with recent placement of a stent. 2. Small nonobstructing left renal calculus. 3. Minimal bilateral lower lobe infiltrates, left greater than right with slight coarsening of interstitium and minimal fibro-atelectatic change. ] MICROBIOLOGY: Please see below. ASSESSMENT: [This is a 40 y/o male with a pmh of hld, htn and cassandra who presents to our ed on 04/23 for evaluation of intractable left flank pain that began today. Of note, patient underwent cystoscopy with left sided ureteral stent placement and basket stone removal just yesterday 04/22. Patient found to have javon upon lab workup in the ED with cr of 2.1 from baseline of 1.3]. . PLAN: 1. [JAVON - most likely pre-renal and secondary to poor oral intake 2/2 pain as well as nsaid use for stone pain - ct abd/pelvis showed no new hydro or obstruction - urine electrolytes ordered - will give ivf - repeat kidney function tomorrow - admit to med surg under obs 2. Ureteral stent pain - stent appears to be in position per radiology read of ct scan - ED provider consulted Dr. Adhikari, urology, who agrees with treatment of javon and agreed to see patient. Assistance is greatly appreciated - Morphine for pain control d/t javon - zofran for nausea 3. Conjunctivitis - most likely viral etiology d/t b/l symptoms with no mucoid discharge - will begin drops 4. Infiltrates on ct abd/pelvis - radiology read of ct abd/pelvis showing small possible infiltrates of b/l levy gs - patient currently complaining of no lower respiratory symptoms, no sirs criteria - will check procalcitonin - observe 5. HTN 6. HLD DVT prophylaxis - mechanical]. Vital Signs Vital Signs Date Time Temp Pulse Resp B/P (MAP) Pulse Ox O2 Delivery O2 Flow Rate FiO2 04/23/21 02:34 18 97 Room Air 04/23/21 02:22 99.1 85 148/81 (103) Laboratory Data Labs 24H Laboratory Tests 2 04/23/21 02:29: Immature Granulocyte % (Auto) 0.3, Neutrophils (%) (Auto) 69.6H, Lymphocytes (%) (Auto) 15.6L, Monocytes (%) (Auto) 13.1H, Eosinophils (%) (Auto) 0.8, Basophils (%) (Auto) 0.6, Neutrophils # (Auto) 4.3, Lymphocytes # (Auto) 1.0L, Monocytes # (Auto) 0.8, Eosinophils # (Auto) 0.1, Basophils # (Auto) 0.0, Nucleated Red Blood Cells % (auto) 0.0, Urine Color YELLOW, Urine Appearance CLOUDYH, Urine pH 6.0, Urine Specific [place] 1.010, Urine Protein 3+H, Urine Glucose (UA) NEGATIVE, Urine Ketones NEGATIVE, Urine Blood 3+H, Urine Nitrite NEGATIVE, Urine Bilirubin NEGATIVE, Urine Urobilinogen 0.2, Urine Leukocyte Esterase 1+H, Urine WBC (Auto) 42H, Urine RBC (Auto) TNTCH, Urine Hyaline Casts (Auto) 0, Urine Bacteria (Auto) NEGATIVE, Urine Squamous Epithelial Cells 0, Urine Sperm (Auto) , Anion Gap 6L, Glomerular Filtration Rate 43.2L, Calcium Level 8.5, Total Bilirubin 0.4, Direct Bilirubin 0.1, Aspartate Amino Transf (AST/SGOT) 22, Alanine Aminotransferase (ALT/SGPT) 34, Alkaline Phosphatase 60, Total Creatine Kinase 239, Creatine Kinase MB < 1.0, Creatine Kinase MB Relative Index 0.42, Troponin I < 0.02, Total Protein 6.6, Albumin 3.1L, Albumin/Globulin Ratio 0.9, Lipase 227 04/23/21 04:53: CBC/BMP Laboratory Tests 04/23/21 02:29 Microbiology Microbiology 04/23/21 Urine Culture, Received Pending Home Medications Scheduled Aspirin (Aspirin EC) 81 Mg Tablet.dr, 81 MG PO DAILY Hydrochlorothiazide (Hydrochlorothiazide) 25 Mg Tablet, 25 MG PO DAILY Hydroxyzine HCl (Hydroxyzine HCl) 25 Mg Tablet, 1 TAB PO QHS for anxiety Lisinopril (Lisinopril) 30 Mg Tablet, 30 MG PO DAILY Naproxen (Naproxen) 500 Mg Tablet, 1 TAB PO BID for pain Omeprazole (Omeprazole) 20 Mg Capsule.dr, 20 MG PO DAILY Rosuvastatin Calcium (Rosuvastatin Calcium) 10 Mg Tablet, 10 MG PO DAILY Allergies Coded Allergies: tamsulosin (Verified Allergy, Severe, breathing difficulty, 12/29/18) amlodipine (Verified Allergy, Unknown, 04/21/21) diltiazem (Verified Allergy, Unknown, 04/21/21) metoprolol (Verified Allergy, Unknown, 04/21/21) A-FIB/CHADSVASC A-FIB History Current/History of A-Fib/PAF?: No Current PO Anticoag Therapy: No ALLISON SUGGS Apr 23, 2021 05:16
--- OUTSIDE RECORDS SUMMARY | 2021-04-23 05:21 | CCD ---
Author Author [facility] Organization [facility] Address Unknown Phone Unavailable Support Name Relationship Address Phone HOMARANNEMA Next Of Kin [address] [place] [address] ST Next Of Kin Unknown Unavailable ALLIED [facility] Next Of Kin [address] [facility] [address] [place] [address] OJYA GRAF Next Of [facility] [address] [place] [address] [facility] [place] [address] SECURITY Next Of [address] [address] ICU SECURITY PRIVATE INVESTG Next Of [facility] [address] [place] [address] ICU SECURITY PRIVATE INVESTGATION Next Of [facility] [address] [place] [address] AUGUSTIN ODONNELL Next Of [facility] [address] [place] [address] Dille DDS, Noni Next Of [facility] [address] [place], [place] [id number] Dille DDS, Noni Next Of [facility] [address] [place] [address] FED EX [employer]OUND Next Of [address] [address] MARELY GRAF Next Of [facility] [address] [place] [address] UE Next Of Kin Unknown Unavailable SECURITAS Next Of Kin [address] [place] [address] SECRURITAS Next Of Kin [address] [facility] [place] [address] ТАТЬЯНА DONAHUE Next Of Kin [address] [place] [address] MARY DONAHUE Next Of Kin [address] [place] [address] Anne Odonnellma RONY [address] [place] [address] [phone] Care Team Providers Care Insole Bottom Filler Name Role Phone Jeremiah Mccormack MD Unavailable [...] Unavailable [place], Jeremiah Forbes MD Unavailable Unavailable [place], Jeremiah Forbes MD Unavailable Unavailable [place], Jeremiah Forbes MD Unavailable Unavailable [place], Jeremiah Forbes MD Unavailable Unavailable [place], Jeremiah Forbes MD Unavailable Unavailable HANK, HUY RICK FOOD DEHYDRATOR OPERATOR-C Unavailable Unavailable HANK, HUY RICK FOOD DEHYDRATOR OPERATOR-C Unavailable Unavailable HANK, HUY RICK FOOD DEHYDRATOR OPERATOR-C Unavailable Unavailable HANK, HUY RICK FOOD DEHYDRATOR OPERATOR-C Unavailable Unavailable HANK, HUY RICK FOOD DEHYDRATOR OPERATOR-C Unavailable Unavailable HANK, HUY RICK FOOD DEHYDRATOR OPERATOR-C Unavailable Unavailable HANK, HUY RICK FOOD DEHYDRATOR OPERATOR-C Unavailable Unavailable HANK, HUY RICK FOOD DEHYDRATOR OPERATOR-C Unavailable Unavailable HANK, HUY RICK FOOD DEHYDRATOR OPERATOR-C Unavailable Unavailable HANK, HUY RICK FOOD DEHYDRATOR OPERATOR-C Unavailable Unavailable HANK, HUY RICK FOOD DEHYDRATOR OPERATOR-C Unavailable Unavailable HANK, HUY RICK FOOD DEHYDRATOR OPERATOR-C Unavailable Unavailable HANK, HUY RICK FOOD DEHYDRATOR OPERATOR-C Unavailable Unavailable HANK, HUY RICK FOOD DEHYDRATOR OPERATOR-C Unavailable Unavailable HANK, HUY RICK FOOD DEHYDRATOR OPERATOR-C Unavailable Unavailable HANK, HUY RICK FOOD DEHYDRATOR OPERATOR-C Unavailable Unavailable HANK, HUY RICK FOOD DEHYDRATOR OPERATOR-C Unavailable Unavailable Jose Maria, V PASQUALE PA-C Unavailable Unavailable [place], V PASQUALE PA-C Unavailable Unavailable [place], V PASQUALE PA-C Unavailable Unavailable [place], V PASQUALE PA-C Unavailable Unavailable Jose Maria, V PASQUALE PA-C Unavailable Unavailable Jose Maria, V PASQUALE PA-C Unavailable Unavailable Jose Maria, V PASQUALE PA-C Unavailable Unavailable [place], V PASQUALE PA-C Unavailable Unavailable [place], V PASQUALE PA-C Unavailable Unavailable [place], V PASQUALE PA-C Unavailable Unavailable [place], V PASQUALE PA-C Unavailable Unavailable Jose Maria, V PASQUALE PA-C Unavailable Unavailable [place], V PASQUALE PA-C Unavailable Unavailable Jose Maria, [...] Unavailable Perez, L Marla RPA Unavailable Unavailable Preez, L Marla RPA Unavailable Unavailable Perez, L [...] is protected by Article 27-F of the [facility] Public Health law. If you continue you may have access to information: Regarding HIV / AIDS; Provided by facilities licensed or operated by the [facility] Office of Mental Health; or Provided by the [facility] Office for People With Developmental Disabilities. If such information is present, then the following [facility] mandated warning applies: This information has [...] law may result in a fine or assisted sentence or both. A general authorization for the release of medical or other information is NOT sufficient authorization for further disc losure. Allergies and Adverse Reactions Type Description Substance Reaction Status Data Source(s ) Propensity to adverse reactions TAMSULOSIN tamsulosin Shortness Of Breath High Active [facility] High Propensity to adverse reactions OXYCODONE Oxycodone Acti ve [facility] Propensity to adverse reactions METHOCARBAMOL Methocarbamol Palpita tions Low Active [facility] Low Family History Family Member Name Family Member Gender Family Member Status Date o f Status Description Data Source(s) Unknown Male Problem MEDENT ([facility]) Encounters Encounter Providers Location Date Indications Data Source(s ) Outpatient Attender: PASQUALE GARCIACReferrer: Heriberto VANN.RACHEL-SJP.RACHEL 04/15/2021 12:00:00 AM EDT - 04/15/2021 03:44:18 PM EDT [facility] [place] [address] [address] 04/15/2021 12:00:00 AM EDT eCW1 ([facility]) [place] [address] [address] 03/30/2021 12:00:00 AM EDT eCW1 ([facility]) Outpatient Attender: RICK Hand/[place]/Ivan/R eindl 03/24/2021 03:00:00 PM EDT [facility] ([facility]) [place] [address] [address] 03/24/2021 12:00:00 AM EDT eCW1 ([facility]) Outpatient Attender: PASQUALE BREWER-SJP.RACHEL 12:00:00 AM EDT - 02/23/2021 07:57:20 AM EDT [facility] Outpatient Attender: RICK Hand/Roque/Ivan/R eindl 02/20/2021 08:00:00 AM EDT MEDENT ([facility]) Outpatient Referrer: PASQUALE LEERACHEL-SJP.RACHEL 12:00:00 AM EDT [facility] [place] [address] [address] 12/03/2020 12:00:00 AM EDT eCW1 ([facility]) [place] [address] [address] 11/13/2020 12:00:00 AM EDT eCW1 ([facility]) Outpatient Referrer: PASQUALE LEECT-SJP.SYR 12:00:00 AM EDT [facility] [address] [address] 11/06/2020 12:00:00 AM EDT [facility]CW1 [facility]) Outpatient Attender: PASQUALE LEERACHEL-SJP.RACHEL 03:10:04 PM EDT - 11/04/2020 04:32:54 PM EDT [facility] [place] [address] [address] 10/08/2020 12:00:00 AM EDT eCW1 ([facility]) [place] [address] [address] 09/17/2020 12:00:00 AM EDT eCW1 ([facility]) [place] [address] [address] 09/12/2020 12:00:00 AM EDT eCW1 ([facility]) [place] [address] [address] 09/05/2020 12:00:00 AM EDT eCW1 ([facility]) [place] [address] [address] 08/27/2020 12:00:00 AM EDT eCW1 ([facility]) [place] [address] [address] 08/26/2020 12:00:00 AM EDT eCW1 ([facility]) [place] [address] [address] 08/14/2020 12:00:00 AM EST eCW1 ([facility]) [place] [address] [address] 08/11/2020 12:00:00 AM EST eCW1 ([facility]) Outpatient Attender: PASQUALE VANN.RACHEL-SJP.RACHEL 12:00:00 AM EST [facility] [place] [address] [address] 08/07/2020 12:00:00 AM EST eCW1 ([facility]) [place] [address] [address] 08/01/2020 12:00:00 AM EST eCW1 ([facility]) [place] [address] [address] 08/01/2020 12:00:00 AM EST eCW1 ([facility]) [place] [address] [address] 07/31/2020 12:00:00 AM EST eCW1 ([facility]) Outpatient Attender: ELEANOR ESPINOSA Physical Therapy 07/14 01:30:00 PM EST [facility] ([facility]) Outpatient Attender: Marla Hand/Roque/Ivan/Amanda read 07/22/2020 10:00:00 AM EST [facility] ([facility]) Outpatient Attender: ELEANOR ESPINOSA Physical Therapy 06/14 01:45:00 PM EST [facility] ([facility]) Outpatient Attender: PASQUALE VANN.RACHEL-SJP.RACHEL 12:00:00 AM EST - 07/01/2020 11:21:21 AM EST [facility] [place] [address] [address] 06/12/2020 12:00:00 AM EST eCW1 ([facility]) [place] [address] [address] 06/11/2020 12:00:00 AM EST [facility]CW1 ([facility]) [place] [address] [address] 06/09/2020 12:00:00 AM EST eCW1 ([facility]) Outpatient Attender: PASQUALE LEERACHEL-SJP.RACHEL 12:00:00 AM EST - 06/03/2020 04:22:22 PM EST [facility] [place] [address] [address] 06/02/2020 12:00:00 AM EST [facility]CW1 ([facility]) OFFICE OUTPATIENT VISIT 15 MINUTES Attender: ELEANOR ESPINOSA Ph ysical Therapy 05/28/2020 12:30:00 PM EST [facility] ([facility]) Outpatient Attender: PASQUALE VANN.RACHEL-SJP.RACHEL 03/2020 12:00:00 AM EST - 05/22/2020 04:45:49 PM EST [facility] [place] [address] [address] 05/13/2020 12:00:00 AM EST eCW1 ([facility]) Outpatient Attender: Tata LEERACHEL-SJP.RACHEL 04/14 12:00:00 AM EST - 05/07/2020 03:53:02 PM EST [facility] OFFICE OUTPATIENT VISIT 15 MINUTES Attender: ELEANOR ESPINOSA Ph ysical Therapy 05/06/2020 02:45:00 PM EST [facility] ([facility]) [place] [address] [address] 05/01/2020 12:00:00 AM EST [facility]CW1 ([facility]) [place] [address] [address] 04/22/2020 12:00:00 AM EST eCW1 ([facility]) Unknown [address] [facility] [place] [address] 04/21/2020 12:00:00 AM EST [facility]CW1 ([facility]) Unknown [address] [facility] [place] [address] 04/21/2020 12:00:00 AM EST [facility]CW1 ([facility]) [place] [address] [address] 04/10/2020 12:00:00 AM EDT eCW1 ([facility]) [place] [address] [address] 04/09/2020 12:00:00 AM EDT eCW1 ([facility]) [place] [address] [address] 04/08/2020 12:00:00 AM EDT eCW1 ([facility]) [place] [address] [address] 04/05/2020 12:00:00 AM EDT eCW1 ([facility]) [place] [address] [address] 04/04/2020 12:00:00 AM EDT eCW1 ([facility]) [place]patient [address] [address] 04/03/2020 12:00:00 AM EDT eCW1 ([facility]) [place]patient [address] [address] 03/27/2020 12:00:00 AM EDT eCW1 ([facility]) OFFICE OUTPATIENT VISIT 15 MINUTES Attender: ELEANOR ESPINOSA Ph ysical Therapy 03/25/2020 11:00:00 AM EDT [facility] ([facility]) Immunizations Vaccine Date Status Description Data Source(s) COVID-19 VACC, MRNA(PFIZER)/PF 04/15/2021 12:00:00 AM EDT completed [facility] COVID-19 VACCINE Pfizer 04/15/2021 12:00:00 AM EDT completed [facility] Vaccine Series Complete: NOThis Data was Submitted to [facility] Via [employer]. INFLUENZA VIRUS VACCINE QUADRIVALENT 2019- (6 MOS [...] tablet (30 mg total) by mouth daily [facility] Hydrochlorothiazide 25 MG Oral Tablet hy drochlorothiazide (HYDRODIURIL) 25 MG tablet hydrochlorothiazide (HYDRODIURIL) 25 MG tablet 12:00:00 AM EDT active [facility] 500 mg 03/27/2021 12:00:00 AM EDT [...] tablet (20 mg total) by mouth daily [facility] Aspirin 81 MG Delayed Release Oral Table t SM Aspirin Adult Low Strength 81 MG EC tablet SM Aspirin Adult Low Strength 81 MG EC tablet 02/23/2021 12: 00:00 AM EDT 81 mg Oral active Take 1 tablet (8 1 mg total) by mouth daily [facility] 20 mg 02/23/2021 12:00:00 AM EDT [...] ONE TABLET BY MOUTH EVERY D AY [facility] Rosuvastatin calcium 10 MG Oral Tablet [...] (10 mg total) by m outh nightly [facility] 8.6-50 mg 09/06/2020 12:00:00 AM EDT tablet 30 TAKE ONE TABLET BY MOUTH EVERY EVENING NEEDED TAKE ONE TABLET BY MOUTH EVERY EVENING NEEDED SOLD: 09/06/2020 [facility] Docusate Sodium 50 MG / sennosides, [facility] 8.6 MG Oral Tablet [SENOKOT-S] Senokot S 8.6-50 MG Senokot S 8.6-50 MG 09/05/2020 12:00:00 AM EDT 1 .0 {tablet_in_the_evening_as_needed} active Senokot S 8.6-50 MG eCW1 ([facility]) Docusate Sodium 50 MG / sennosides, [facility] 8.6 MG Oral Tablet [SENOKOT-S] Senokot S 8.6-50 MG [facility] 8.6-50 MG 09/05/2020 12:00:00 AM EDT 1 .0 {tablet_in_the_evening_as_needed} active Senokot S 8.6-50 MG eCW1 ([facility]) Docusate Sodium 50 MG / sennosides, [facility] 8.6 MG Oral Tablet [SENOKOT-S] Senokot S 8.6-50 MG Senokot S 8.6-50 MG 09/05/2020 12:00:00 AM EDT 1 .0 {tablet_in_the_evening_as_needed} active Senokot S 8.6-50 MG eCW1 ([facility]) Docusate Sodium 50 MG / sennosides, [facility] 8.6 MG Oral Tablet [SENOKOT-S] Senokot S 8.6-50 MG Senokot S 8.6-50 MG 09/05/2020 12:00:00 AM EDT 1 .0 {tablet_in_the_evening_as_needed} active Senokot S 8.6-50 MG eCW1 ([facility]) Docusate Sodium 50 MG / sennosides, [facility] 8.6 MG Oral Tablet [SENOKOT-S] Senokot S 8.6-50 MG Senokot S 8.6-50 MG 09/05/2020 12:00:00 AM EDT 1 .0 {tablet_in_the_evening_as_needed} active Senokot S 8.6-50 MG eCW1 ([facility]) Docusate Sodium 50 MG / sennosides, [facility] 8.6 MG Oral Tablet [SENOKOT-S] Senokot S 8.6-50 MG Senokot S 8.6-50 MG 09/05/2020 12:00:00 AM EDT 1 .0 {tablet_in_the_evening_as_needed} active Senokot S 8.6-50 MG eCW1 ([facility]) Docusate Sodium 50 MG / sennosides, [facility] 8.6 MG Oral Tablet [SENOKOT-S] Senokot S 8.6-50 MG Senokot S 8.6-50 MG 09/05/2020 12:00:00 AM EDT 1 .0 {tablet_in_the_evening_as_needed} active Senokot S 8.6-50 MG eCW1 ([facility]) Docusate Sodium 50 MG / sennosides, [facility] 8.6 MG Oral Tablet [SENOKOT-S] Senokot S 8.6-50 MG Senokot S 8.6-50 MG 09/05/2020 12:00:00 AM EDT 1 .0 {tablet_in_the_evening_as_needed} active Senokot S 8.6-50 MG eCW1 ([facility]) Docusate Sodium 50 MG / sennosides, [facility] 8.6 MG Oral Tablet [SENOKOT-S] Senokot S 8.6-50 MG [facility] S 8.6-50 MG 09/05/2020 12:00:00 AM EDT 1 .0 {tablet_in_the_evening_as_needed} active Senokot S 8.6-50 MG eCW1 ([facility]) Docusate Sodium 50 MG / sennosides, [facility] 8.6 MG Oral Tablet [SENOKOT-S] Senokot S 8.6-50 MG Senokot S 8.6-50 MG 09/05/2020 12:00:00 AM EDT 1 .0 {tablet_in_the_evening_as_needed} active Senokot S 8.6-50 MG eCW1 ([facility]) Rosuvastatin calcium 10 MG Oral Tablet rosuvastatin (C RESTOR) 10 MG tablet rosuvastatin (CRESTOR) 10 MG tablet 09/01/2020 12:00:00 AM EDT 10 mg Oral aborted Take 1 tablet (10 mg total) by m outh nightly [facility] Rosuvastatin calcium 10 MG Oral Tablet ROSUVASTATIN CALCIUM 09/01/2020 12:00:00 AM EDT tablet 30 TAKE ONE TABLET BY MOUTH NIG HTLY TAKE ONE TABLET BY MOUTH NIGHTLY SOLD: 09/01/2020 [facility] Cephalexin 500 MG Oral Capsule Cephalexin 500 MG 08/11/2020 12:00:00 AM EST active Cephalexin 500 MG eC W1 ([facility]) Cephalexin 500 MG Oral Capsule Cephalexin 500 MG 08/11/2020 12:00:00 AM EST suspended Cephalexin 500 MG eC W1 ([facility]) Cephalexin 500 MG Oral Capsule Cephalexin 500 MG 08/11/2020 12:00:00 AM EST suspended Cephalexin 500 MG eC W1 ([facility]) Cephalexin 500 MG Oral Capsule Cephalexin 500 MG 08/11/2020 12:00:00 AM EST active Cephalexin 500 MG eC W1 ([facility]) Cephalexin 500 MG Oral Capsule Cephalexin 500 MG 08/11/2020 12:00:00 AM EST suspended Cephalexin 500 MG eC W1 ([facility]) Cephalexin 500 MG Oral Capsule Cephalexin 500 MG 08/11/2020 12:00:00 AM EST suspended Cephalexin 500 MG eC W1 ([facility]) Cephalexin 500 MG Oral Capsule Cephalexin 500 MG 08/11/2020 12:00:00 AM EST suspended Cephalexin 500 MG eC W1 ([facility]) Cephalexin 500 MG Oral Capsule Cephalexin 500 MG 08/11/2020 12:00:00 AM EST active Cephalexin 500 MG eC W1 ([facility]) Cephalexin 500 MG Oral Capsule Cephalexin 500 MG 08/11/2020 12:00:00 AM EST suspended Cephalexin 500 MG eC W1 ([facility]) Cephalexin 500 MG Oral Capsule Cephalexin 500 MG 08/11/2020 12:00:00 AM EST suspended Cephalexin 500 MG eC W1 ([facility]) Cephalexin 500 MG Oral Capsule CEPHALEXIN 08/11/2020 12:00:00 AM EST capsule 1 TAKE ONE CAPSULE BY MOUTH ONE HOUR PRIOR TO CYSTOSCOPY TAKE ONE CAPSULE BY MOUTH ONE HOUR PRIOR TO CYSTOSCOPY SOLD: 08/11/2020 [facility] Cephalexin 500 MG Oral Capsule Cephalexin 500 MG 08/11/2020 12:00:00 AM EST suspended Cephalexin 500 MG eC W1 ([facility]) Cephalexin 500 MG Oral Capsule Cephalexin 500 MG 08/11/2020 12:00:00 AM EST suspended Cephalexin 500 MG eC W1 ([facility]) Cephalexin 500 MG Oral Capsule Cephalexin 500 MG 08/11/2020 12:00:00 AM EST active Cephalexin 500 MG eC W1 ([facility]) Cephalexin 500 MG Oral Capsule Cephalexin 500 MG 08/11/2020 12:00:00 AM EST suspended Cephalexin 500 MG eC W1 ([facility]) Cephalexin 500 MG Oral Capsule Cephalexin 500 MG 08/11/2020 12:00:00 AM EST active Cephalexin 500 MG eC W1 ([facility]) 25 mg 08/08/2020 12:00:00 AM EST [...] tablet (25 mg total) by mouth daily [facility] 81 mg 08/01/2020 12:00:00 AM EST [...] (10 mg total) by m outh nightly [facility] Rosuvastatin calcium 10 MG Oral Tablet [...] solution 06/17/2020 12:00:00 AM EST active [facility] Lidocaine 5 % Lidocaine 5 % 06/12/2020 12:00:00 AM EST suspended Lidocaine 5 % eCW1 ([facility]) Lidocaine 5 % Lidocaine 5 % 06/12/2020 12:00:00 AM EST suspended Lidocaine 5 % eCW1 ([facility]) Lidocaine 5 % Lidocaine 5 % 06/12/2020 12:00:00 AM EST suspended Lidocaine 5 % eCW1 ([facility]) Lidocaine 5 % Lidocaine 5 % 06/12/2020 12:00:00 AM EST suspended Lidocaine 5 % eCW1 ([facility]) Lidocaine 5 % Lidocaine 5 % 06/12/2020 12:00:00 AM EST suspended Lidocaine 5 % eCW1 ([facility]) Lidocaine 5 % Lidocaine 5 % 06/12/2020 12:00:00 AM EST suspended Lidocaine 5 % eCW1 ([facility]) Lidocaine 5 % Lidocaine 5 % 06/12/2020 12:00:00 AM EST active Lidocaine 5 % eCW1 ([facility]) Lidocaine 5 % Lidocaine 5 % 06/12/2020 12:00:00 AM EST suspended Lidocaine 5 % eCW1 ([facility]) Lidocaine 5 % Lidocaine 5 % 06/12/2020 12:00:00 AM EST suspended Lidocaine 5 % eCW1 ([facility]) Lidocaine 5 % Lidocaine 5 % 06/12/2020 12:00:00 AM EST suspended Lidocaine 5 % eCW1 ([facility]) Lidocaine 5 % Lidocaine 5 % 06/12/2020 12:00:00 AM EST suspended Lidocaine 5 % eCW1 ([facility]) Lidocaine 5 % Lidocaine 5 % 06/12/2020 12:00:00 AM EST suspended Lidocaine 5 % eCW1 ([facility]) Lidocaine 5 % Lidocaine 5 % 06/12/2020 12:00:00 AM EST suspended Lidocaine 5 % eCW1 ([facility]) Lidocaine 5 % Lidocaine 5 % 06/12/2020 12:00:00 AM EST suspended Lidocaine 5 % eCW1 ([facility]) Lidocaine 5 % Lidocaine 5 % 06/12/2020 12:00:00 AM EST suspended Lidocaine 5 % eCW1 ([facility]) Lidocaine 5 % Lidocaine 5 % 06/12/2020 12:00:00 AM EST suspended Lidocaine 5 % eCW1 ([facility]) Lidocaine 5 % Lidocaine 5 % 06/12/2020 12:00:00 AM EST suspended Lidocaine 5 % eCW1 ([facility]) Lidocaine 5 % Lidocaine 5 % 06/12/2020 12:00:00 AM EST active Lidocaine 5 % eCW1 ([facility]) Lidocaine 5 % Lidocaine 5 % 06/12/2020 12:00:00 AM EST suspended Lidocaine 5 % eCW1 ([facility]) Lidocaine 5 % Lidocaine 5 % 06/12/2020 12:00:00 AM EST active Lidocaine 5 % eCW1 ([facility]) Lidocaine 5 % Lidocaine 5 % 06/12/2020 12:00:00 AM EST suspended Lidocaine 5 % eCW1 ([facility]) Lidocaine 5 % Lidocaine 5 % 06/12/2020 12:00:00 AM EST suspended Lidocaine 5 % eCW1 ([facility]) Lidocaine 5 % Lidocaine 5 % 06/12/2020 12:00:00 AM EST active Lidocaine 5 % eCW1 ([facility]) Rosuvastatin calcium 10 MG Oral Tablet rosuvastatin (C RESTOR) 10 MG tablet rosuvastatin (CRESTOR) 10 MG tablet 06/03/2020 12:00:00 AM EST 10 mg Oral aborted Take 1 tablet (10 mg total) by m outh nightly [facility] 10 mg 06/03/2020 12:00:00 AM EST [...] tablet (40 mg total) by mouth daily [facility] 24 HR Diltiazem Hydrochloride 180 MG Ext ended Release Oral Capsule diltiazem (CARDIZEM CD) 180 MG 24 hr capsule diltiazem (CARDIZEM CD) 180 MG 24 hr capsule 05/22/2020 12:00:00 AM EST 180 mg Oral aborted Take 1 capsule (180 mg total) by mouth daily [facility] Lisinopril 30 MG Oral Tablet Lisinopril 30 MG 05/13/2020 12:00:00 A M EST 1.0 {tablet} suspended Lisinopril 30 MG eCW1 ([facility]) Lisinopril 30 MG Oral Tablet Lisinopril 30 MG 05/13/2020 12:00:00 A M EST 1.0 {tablet} suspended Lisinopril 30 MG eCW1 ([facility]) Lisinopril 30 MG Oral Tablet Lisinopril 30 MG 05/13/2020 12:00:00 A M EST 1.0 {tablet} active Lisinopril 30 MG eCW1 ( [facility]) Lisinopril 30 MG Oral Tablet Lisinopril 30 MG 05/13/2020 12:00:00 A M EST 1.0 {tablet} suspended Lisinopril 30 MG eCW1 ([facility]) Lisinopril 30 MG Oral Tablet Lisinopril 30 MG 05/13/2020 12:00:00 A M EST 1.0 {tablet} suspended Lisinopril 30 MG eCW1 ([facility]) Lisinopril 30 MG Oral Tablet Lisinopril 30 MG 05/13/2020 12:00:00 A M EST 1.0 {tablet} suspended Lisinopril 30 MG eCW1 ([facility]) Lisinopril 30 MG Oral Tablet Lisinopril 30 MG 05/13/2020 12:00:00 A M EST 1.0 {tablet} active Lisinopril 30 MG eCW1 ( [facility]) Lisinopril 30 MG Oral Tablet Lisinopril 30 MG 05/13/2020 12:00:00 A M EST 1.0 {tablet} suspended Lisinopril 30 MG eCW1 ([facility]) Lisinopril 30 MG Oral Tablet Lisinopril 30 MG 05/13/2020 12:00:00 A M EST 1.0 {tablet} active Lisinopril 30 MG eCW1 ( [facility]) Lisinopril 30 MG Oral Tablet Lisinopril 30 MG 05/13/2020 12:00:00 A M EST 1.0 {tablet} suspended Lisinopril 30 MG eCW1 ([facility]) Lisinopril 30 MG Oral Tablet Lisinopril 30 MG 05/13/2020 12:00:00 A M EST 1.0 {tablet} active Lisinopril 30 MG eCW1 ( [facility]) Lisinopril 30 MG Oral Tablet Lisinopril 30 MG 05/13/2020 12:00:00 A M EST 1.0 {tablet} suspended Lisinopril 30 MG eCW1 ([facility]) Lisinopril 30 MG Oral Tablet Lisinopril 30 MG 05/13/2020 12:00:00 A M EST 1.0 {tablet} suspended Lisinopril 30 MG eCW1 ([facility]) Lisinopril 30 MG Oral Tablet Lisinopril 30 MG 05/13/2020 12:00:00 A M EST 1.0 {tablet} suspended Lisinopril 30 MG eCW1 ([facility]) Lisinopril 30 MG Oral Tablet Lisinopril 30 MG 05/13/2020 12:00:00 A M EST 1.0 {tablet} suspended Lisinopril 30 MG eCW1 ([facility]) Lisinopril 30 MG Oral Tablet Lisinopril 30 MG 05/13/2020 12:00:00 A M EST 1.0 {tablet} active Lisinopril 30 MG eCW1 ( [facility]) Lisinopril 30 MG Oral Tablet Lisinopril 30 MG 05/13/2020 12:00:00 A M EST 1.0 {tablet} suspended Lisinopril 30 MG eCW1 ([facility]) Lisinopril 30 MG Oral Tablet Lisinopril 30 MG 05/13/2020 12:00:00 A M EST 1.0 {tablet} suspended Lisinopril 30 MG eCW1 ([facility]) Lisinopril 30 MG Oral Tablet Lisinopril 30 MG 05/13/2020 12:00:00 A M EST 1.0 {tablet} suspended Lisinopril 30 MG eCW1 ([facility]) Lisinopril 30 MG Oral Tablet Lisinopril 30 MG 05/13/2020 12:00:00 A M EST 1.0 {tablet} suspended Lisinopril 30 MG eCW1 ([facility]) Lisinopril 30 MG Oral Tablet Lisinopril 30 MG 05/13/2020 12:00:00 A M EST 1.0 {tablet} suspended Lisinopril 30 MG eCW1 ([facility]) Lisinopril 30 MG Oral Tablet Lisinopril 30 MG 05/13/2020 12:00:00 A M EST 1.0 {tablet} suspended Lisinopril 30 MG eCW1 ([facility]) Lisinopril 30 MG Oral Tablet Lisinopril 30 MG 05/13/2020 12:00:00 A M EST 1.0 {tablet} suspended Lisinopril 30 MG eCW1 ([facility]) Lisinopril 30 MG Oral Tablet Lisinopril 30 MG 05/13/2020 12:00:00 A M EST 1.0 {tablet} suspended Lisinopril 30 MG eCW1 ([facility]) 24 HR Diltiazem Hydrochloride 180 MG Extended Release Oral Capsule DILTIAZEM HCL 05/09/2020 12:00:00 AM EST capsule,extended release 24hr 30 TAKE ONE CAPSULE BY MOUTH EVERY DAY TAKE ONE CAPSULE BY MOUTH EVERY DAY SOLD: 05/12/2020 [facility] 24 HR Diltiazem Hydrochloride 180 MG Ext ended Release Oral Capsule diltiazem (CARDIZEM CD) 180 MG 24 hr capsule diltiazem (CARDIZEM CD) 180 MG 24 hr capsule 05/07/2020 12:00:00 AM EST 180 mg Oral aborted Take 1 capsule (180 mg total) by mouth daily [facility] 20 mg 05/02/2020 12:00:00 AM EST tablet 30 TAKE ONE TABLET BY MOUTH EVERY DAY TAKE ONE TABLET BY MOUTH EVERY DAY SOLD: 05/06/2020 [facility] atorvastatin 40 MG Oral Tablet ATORVASTATIN CALCIUM 05/02/2020 1 2:00:00 AM EST tablet 30 TAKE ONE TABLET BY MOUTH EVERY D AY TAKE ONE TABLET BY MOUTH EVERY DAY SOLD: 05/06/2020 [facility] atorvastatin 40 MG Oral Tablet Atorvastatin Calcium 40 MG Atorvastatin Calcium 40 MG 05/01/2020 12:00:00 AM EST 1.0 {tablet} activ e Atorvastatin Calcium 40 MG eCW1 ([facility]) atorvastatin 40 MG Oral Tablet Atorvastatin Calcium 40 MG Atorvastatin Calcium 40 MG 05/01/2020 12:00:00 AM EST 1.0 {tablet} activ e Atorvastatin Calcium 40 MG eCW1 ([facility]) atorvastatin 40 MG Oral Tablet Atorvastatin Calcium 40 MG Atorvastatin Calcium 40 MG 05/01/2020 12:00:00 AM EST 1.0 {tablet} activ e Atorvastatin Calcium 40 MG eCW1 ([facility]) atorvastatin 40 MG Oral Tablet Atorvastatin Calcium 40 MG Atorvastatin Calcium 40 MG 05/01/2020 12:00:00 AM EST 1.0 {tablet} activ e Atorvastatin Calcium 40 MG eCW1 ([facility]) atorvastatin 40 MG Oral Tablet Atorvastatin Calcium 40 MG Atorvastatin Calcium 40 MG 05/01/2020 12:00:00 AM EST 1.0 {tablet} activ e Atorvastatin Calcium 40 MG eCW1 ([facility]) atorvastatin 40 MG Oral Tablet Atorvastatin Calcium 40 MG Atorvastatin Calcium 40 MG 05/01/2020 12:00:00 AM EST 1.0 {tablet} activ e Atorvastatin Calcium 40 MG eCW1 ([facility]) atorvastatin 40 MG Oral Tablet Atorvastatin Calcium 40 MG Atorvastatin Calcium 40 MG 05/01/2020 12:00:00 AM EST 1.0 {tablet} activ e Atorvastatin Calcium 40 MG eCW1 ([facility]) atorvastatin 40 MG Oral Tablet Atorvastatin Calcium 40 MG Atorvastatin Calcium 40 MG 05/01/2020 12:00:00 AM EST 1.0 {tablet} activ e Atorvastatin Calcium 40 MG eCW1 ([facility]) atorvastatin 40 MG Oral Tablet Atorvastatin Calcium 40 MG Atorvastatin Calcium 40 MG 05/01/2020 12:00:00 AM EST 1.0 {tablet} activ e Atorvastatin Calcium 40 MG eCW1 ([facility]) atorvastatin 40 MG Oral Tablet Atorvastatin Calcium 40 MG Atorvastatin Calcium 40 MG 05/01/2020 12:00:00 AM EST 1.0 {tablet} activ e Atorvastatin Calcium 40 MG eCW1 ([facility]) atorvastatin 40 MG Oral Tablet Atorvastatin Calcium 40 MG Atorvastatin Calcium 40 MG 05/01/2020 12:00:00 AM EST 1.0 {tablet} activ e Atorvastatin Calcium 40 MG eCW1 ([facility]) atorvastatin 40 MG Oral Tablet Atorvastatin Calcium 40 MG Atorvastatin Calcium 40 MG 05/01/2020 12:00:00 AM EST 1.0 {tablet} activ e Atorvastatin Calcium 40 MG eCW1 ([facility]) Lisinopril 20 MG Oral Tablet Lisinopril 20 MG 05/01/2020 12:00:00 A M EST 1.0 {tablet} active Lisinopril 20 MG eCW1 ( [facility]) atorvastatin 40 MG Oral Tablet Atorvastatin Calcium 40 MG Atorvastatin Calcium 40 MG 05/01/2020 12:00:00 AM EST 1.0 {tablet} suspe nded Atorvastatin Calcium 40 MG eCW1 ([facility]) atorvastatin 40 MG Oral Tablet Atorvastatin Calcium 40 MG Atorvastatin Calcium 40 MG 05/01/2020 12:00:00 AM EST 1.0 {tablet} activ e Atorvastatin Calcium 40 MG eCW1 ([facility]) atorvastatin 40 MG Oral Tablet Atorvastatin Calcium 40 MG Atorvastatin Calcium 40 MG 05/01/2020 12:00:00 AM EST 1.0 {tablet} activ e Atorvastatin Calcium 40 MG eCW1 ([facility]) atorvastatin 40 MG Oral Tablet Atorvastatin Calcium 40 MG Atorvastatin Calcium 40 MG 05/01/2020 12:00:00 AM EST 1.0 {tablet} activ e Atorvastatin Calcium 40 MG eCW1 ([facility]) atorvastatin 40 MG Oral Tablet Atorvastatin Calcium 40 MG Atorvastatin Calcium 40 MG 05/01/2020 12:00:00 AM EST 1.0 {tablet} activ e Atorvastatin Calcium 40 MG eCW1 ([facility]) atorvastatin 40 MG Oral Tablet Atorvastatin Calcium 40 MG Atorvastatin Calcium 40 MG 05/01/2020 12:00:00 AM EST 1.0 {tablet} suspe nded Atorvastatin Calcium 40 MG eCW1 ([facility]) atorvastatin 40 MG Oral Tablet Atorvastatin Calcium 40 MG Atorvastatin Calcium 40 MG 05/01/2020 12:00:00 AM EST 1.0 {tablet} activ e Atorvastatin Calcium 40 MG eCW1 ([facility]) atorvastatin 40 MG Oral Tablet Atorvastatin Calcium 40 MG Atorvastatin Calcium 40 MG 05/01/2020 12:00:00 AM EST 1.0 {tablet} activ e Atorvastatin Calcium 40 MG eCW1 ([facility]) atorvastatin 40 MG Oral Tablet Atorvastatin Calcium 40 MG Atorvastatin Calcium 40 MG 05/01/2020 12:00:00 AM EST 1.0 {tablet} activ e Atorvastatin Calcium 40 MG eCW1 ([facility]) atorvastatin 40 MG Oral Tablet Atorvastatin Calcium 40 MG Atorvastatin Calcium 40 MG 05/01/2020 12:00:00 AM EST 1.0 {tablet} activ e Atorvastatin Calcium 40 MG eCW1 ([facility]) Lisinopril 20 MG Oral Tablet Lisinopril 20 MG 05/01/2020 12:00:00 A M EST 1.0 {tablet} active Lisinopril 20 MG eCW1 ( [facility]) atorvastatin 40 MG Oral Tablet Atorvastatin Calcium 40 MG Atorvastatin Calcium 40 MG 05/01/2020 12:00:00 AM EST 1.0 {tablet} activ e Atorvastatin Calcium 40 MG eCW1 ([facility]) atorvastatin 40 MG Oral Tablet Atorvastatin Calcium 40 MG Atorvastatin Calcium 40 MG 05/01/2020 12:00:00 AM EST 1.0 {tablet} activ e Atorvastatin Calcium 40 MG eCW1 ([facility]) atorvastatin 40 MG Oral Tablet Atorvastatin Calcium 40 MG Atorvastatin Calcium 40 MG 05/01/2020 12:00:00 AM EST 1.0 {tablet} activ e Atorvastatin Calcium 40 MG eCW1 ([facility]) atorvastatin 40 MG Oral Tablet Atorvastatin Calcium 40 MG Atorvastatin Calcium 40 MG 05/01/2020 12:00:00 AM EST 1.0 {tablet} activ e Atorvastatin Calcium 40 MG eCW1 ([facility]) 20 mg 04/23/2020 12:00:00 AM EST [...] aborted Take 10 mg by mouth daily [facility] 10 mg 04/22/2020 12:00:00 AM EST tablet 30 TAKE ONE TABLET BY MOUTH EVERY DAY TAKE ONE TABLET BY MOUTH EVERY DAY SOLD: 04/23/2020 [facility] Isosorbide Dinitrate 30 MG Oral Tablet Isosorbide Dinitrate 30 MG 04/21/2020 12:00:00 AM EST 1.0 {tablet} active Is osorbide Dinitrate 30 MG eCW1 ([facility]) Isosorbide Dinitrate 30 MG Oral Tablet Isosorbide Dinitrate 30 MG 04/21/2020 12:00:00 AM EST 1.0 {tablet} active Is osorbide Dinitrate 30 MG eCW1 ([facility]) Lisinopril 10 MG Oral Tablet Lisinopril 10 MG 04/21/2020 12:00:00 A M EST 1.0 {tablet} active Lisinopril 10 MG eCW1 ( [facility]) Isosorbide Dinitrate 30 MG Oral Tablet Isosorbide Dinitrate 30 MG 04/21/2020 12:00:00 AM EST 1.0 {tablet} active Is osorbide Dinitrate 30 MG eCW1 ([facility]) Isosorbide Dinitrate 30 MG Oral Tablet Isosorbide Dinitrate 30 MG 04/21/2020 12:00:00 AM EST 1.0 {tablet} suspended Isosorbide Dinitrate 30 MG eCW1 ([facility]) Isosorbide Dinitrate 30 MG Oral Tablet Isosorbide Dinitrate 30 MG 04/21/2020 12:00:00 AM EST 1.0 {tablet} active Is osorbide Dinitrate 30 MG eCW1 ([facility]) Isosorbide Dinitrate 30 MG Oral Tablet Isosorbide Dinitrate 30 MG 04/21/2020 12:00:00 AM EST 1.0 {tablet} active Is osorbide Dinitrate 30 MG eCW1 ([facility]) Isosorbide Dinitrate 30 MG Oral Tablet Isosorbide Dinitrate 30 MG 04/21/2020 12:00:00 AM EST 1.0 {tablet} active Is osorbide Dinitrate 30 MG eCW1 ([facility]) Isosorbide Dinitrate 30 MG Oral Tablet Isosorbide Dinitrate 30 MG 04/21/2020 12:00:00 AM EST 1.0 {tablet} active Is osorbide Dinitrate 30 MG eCW1 ([facility]) Isosorbide Dinitrate 30 MG Oral Tablet Isosorbide Dinitrate 30 MG 04/21/2020 12:00:00 AM EST 1.0 {tablet} active Is osorbide Dinitrate 30 MG eCW1 ([facility]) Isosorbide Dinitrate 30 MG Oral Tablet Isosorbide Dinitrate 30 MG 04/21/2020 12:00:00 AM EST 1.0 {tablet} active Is osorbide Dinitrate 30 MG eCW1 ([facility]) Isosorbide Dinitrate 30 MG Oral Tablet Isosorbide Dinitrate 30 MG 04/21/2020 12:00:00 AM EST 1.0 {tablet} active Is osorbide Dinitrate 30 MG eCW1 ([facility]) Isosorbide Dinitrate 30 MG Oral Tablet Isosorbide Dinitrate 30 MG 04/21/2020 12:00:00 AM EST 1.0 {tablet} active Is osorbide Dinitrate 30 MG eCW1 ([facility]) Isosorbide Dinitrate 30 MG Oral Tablet Isosorbide Dinitrate 30 MG 04/21/2020 12:00:00 AM EST 1.0 {tablet} active Is osorbide Dinitrate 30 MG eCW1 ([facility]) Isosorbide Dinitrate 30 MG Oral Tablet Isosorbide Dinitrate 30 MG 04/21/2020 12:00:00 AM EST 1.0 {tablet} active Is osorbide Dinitrate 30 MG eCW1 ([facility]) Isosorbide Dinitrate 30 MG Oral Tablet Isosorbide Dinitrate 30 MG 04/21/2020 12:00:00 AM EST 1.0 {tablet} active Is osorbide Dinitrate 30 MG eCW1 ([facility]) Isosorbide Dinitrate 30 MG Oral Tablet Isosorbide Dinitrate 30 MG 04/21/2020 12:00:00 AM EST 1.0 {tablet} suspended Isosorbide Dinitrate 30 MG eCW1 ([facility]) Isosorbide Dinitrate 30 MG Oral Tablet Isosorbide Dinitrate 30 MG 04/21/2020 12:00:00 AM EST 1.0 {tablet} active Is osorbide Dinitrate 30 MG eCW1 ([facility]) Isosorbide Dinitrate 30 MG Oral Tablet Isosorbide Dinitrate 30 MG 04/21/2020 12:00:00 AM EST 1.0 {tablet} active Is osorbide Dinitrate 30 MG eCW1 ([facility]) Isosorbide Dinitrate 30 MG Oral Tablet Isosorbide Dinitrate 30 MG 04/21/2020 12:00:00 AM EST 1.0 {tablet} active Is osorbide Dinitrate 30 MG eCW1 ([facility]) Isosorbide Dinitrate 30 MG Oral Tablet Isosorbide Dinitrate 30 MG 04/21/2020 12:00:00 AM EST 1.0 {tablet} active Is osorbide Dinitrate 30 MG eCW1 ([facility]) Isosorbide Dinitrate 30 MG Oral Tablet Isosorbide Dinitrate 30 MG 04/21/2020 12:00:00 AM EST 1.0 {tablet} active Is osorbide Dinitrate 30 MG eCW1 ([facility]) Isosorbide Dinitrate 30 MG Oral Tablet Isosorbide Dinitrate 30 MG 04/21/2020 12:00:00 AM EST 1.0 {tablet} active Is osorbide Dinitrate 30 MG eCW1 ([facility]) Isosorbide Dinitrate 30 MG Oral Tablet Isosorbide Dinitrate 30 MG 04/21/2020 12:00:00 AM EST 1.0 {tablet} active Is osorbide Dinitrate 30 MG eCW1 ([facility]) Isosorbide Dinitrate 30 MG Oral Tablet Isosorbide Dinitrate 30 MG 04/21/2020 12:00:00 AM EST 1.0 {tablet} active Is osorbide Dinitrate 30 MG eCW1 ([facility]) Isosorbide Dinitrate 30 MG Oral Tablet Isosorbide Dinitrate 30 MG 04/21/2020 12:00:00 AM EST 1.0 {tablet} active Is osorbide Dinitrate 30 MG eCW1 ([facility]) Isosorbide Dinitrate 30 MG Oral Tablet Isosorbide Dinitrate 30 MG 04/21/2020 12:00:00 AM EST 1.0 {tablet} active Is osorbide Dinitrate 30 MG eCW1 ([facility]) Isosorbide Dinitrate 30 MG Oral Tablet Isosorbide Dinitrate 30 MG 04/21/2020 12:00:00 AM EST 1.0 {tablet} active Is osorbide Dinitrate 30 MG eCW1 ([facility]) Isosorbide Dinitrate 30 MG Oral Tablet Isosorbide Dinitrate 30 MG 04/21/2020 12:00:00 AM EST 1.0 {tablet} active Is osorbide Dinitrate 30 MG eCW1 ([facility]) Lisinopril 10 MG Oral Tablet Lisinopril 10 MG 04/21/2020 12:00:00 A M EST 1.0 {tablet} active Lisinopril 10 MG eCW1 ( [facility]) 30 mg 04/09/2020 12:00:00 AM EDT tablet 60 TAKE ONE TABLET BY MOUTH TWICE A DAY TAKE ONE TABLET BY MOUTH TWICE A DAY SOLD: 04/11/2020 [facility] Nitroglycerin 0.3 MG Sublingual Tablet NITROGLYCERIN [...] mg Oral aborted Take 25 mg by [facility] Aspirin 81 MG Delayed Release Oral Table t SM ASPIRIN ADULT LOW STRENGTH 81 MG EC tablet SM ASPIRIN ADULT LOW STRENGTH 81 MG EC tablet 04/09/2020 12: 00:00 AM EDT 81 mg Oral aborted Take 81 mg by mo uth daily [facility] Nitroglycerin 0.3 MG Sublingual Tablet n itroglycerin (NITROSTAT) 0.3 MG SL tablet nitroglycerin (NITROSTAT) 0.3 MG SL tablet 04/09/2020 12:00:00 A M EDT aborted TAKE ONE T ABLET UNDER THE TONGUE WHEN CHEST PAIN DOES NOT IMPROVE IN 3 MINUTES AND CAN USE SECOND DOSE IF PAIN DOES NOT RESOLVE WITH ONE [facility] 25 mg 04/09/2020 12:00:00 AM EDT [...] TABLET BY MOUTH EVERY DAY SOLD: 04/11/2020 [facility] Nitroglycerin 0.3 MG Sublingual Tablet Nitroglycerin 0.3 MG 04/08/2020 12:00:00 AM EDT active Nitroglycerin 0.3 MG eCW1 ([facility]) Nitroglycerin 0.3 MG Sublingual Tablet Nitroglycerin 0.3 MG 04/08/2020 12:00:00 AM EDT active Nitroglycerin 0.3 MG eCW1 ([facility]) Nitroglycerin 0.3 MG Sublingual Tablet Nitroglycerin 0.3 MG 04/08/2020 12:00:00 AM EDT active Nitroglycerin 0.3 MG eCW1 ([facility]) Nitroglycerin 0.3 MG Sublingual Tablet Nitroglycerin 0.3 MG 04/08/2020 12:00:00 AM EDT active Nitroglycerin 0.3 MG eCW1 ([facility]) Nitroglycerin 0.3 MG Sublingual Tablet Nitroglycerin 0.3 MG 04/08/2020 12:00:00 AM EDT active Nitroglycerin 0.3 MG eCW1 ([facility]) Nitroglycerin 0.3 MG Sublingual Tablet Nitroglycerin 0.3 MG 04/08/2020 12:00:00 AM EDT active Nitroglycerin 0.3 MG eCW1 ([facility]) Nitroglycerin 0.3 MG Sublingual Tablet Nitroglycerin 0.3 MG 04/08/2020 12:00:00 AM EDT active Nitroglycerin 0.3 MG eCW1 ([facility]) Nitroglycerin 0.3 MG Sublingual Tablet Nitroglycerin 0.3 MG 04/08/2020 12:00:00 AM EDT active Nitroglycerin 0.3 MG eCW1 ([facility]) atorvastatin 80 MG Oral Tablet ATORVASTATIN CALCIUM 04/08/2020 1 2:00:00 AM EDT tablet 30 TAKE ONE TABLET BY MOUTH EVERY D AY TAKE ONE TABLET BY MOUTH EVERY DAY SOLD: 04/11/2020 [facility] Nitroglycerin 0.3 MG Sublingual Tablet Nitroglycerin 0.3 MG 04/08/2020 12:00:00 AM EDT active Nitroglycerin 0.3 MG eCW1 ([facility]) Nitroglycerin 0.3 MG Sublingual Tablet Nitroglycerin 0.3 MG 04/08/2020 12:00:00 AM EDT active Nitroglycerin 0.3 MG eCW1 ([facility]) Nitroglycerin 0.3 MG Sublingual Tablet Nitroglycerin 0.3 MG 04/08/2020 12:00:00 AM EDT active Nitroglycerin 0.3 MG eCW1 ([facility]) Nitroglycerin 0.3 MG Sublingual Tablet Nitroglycerin 0.3 MG 04/08/2020 12:00:00 AM EDT active Nitroglycerin 0.3 MG eCW1 ([facility]) Nitroglycerin 0.3 MG Sublingual Tablet Nitroglycerin 0.3 MG 04/08/2020 12:00:00 AM EDT active Nitroglycerin 0.3 MG eCW1 ([facility]) Nitroglycerin 0.3 MG Sublingual Tablet Nitroglycerin 0.3 MG 04/08/2020 12:00:00 AM EDT active Nitroglycerin 0.3 MG eCW1 ([facility]) Nitroglycerin 0.3 MG Sublingual Tablet Nitroglycerin 0.3 MG 04/08/2020 12:00:00 AM EDT active Nitroglycerin 0.3 MG eCW1 ([facility]) atorvastatin 40 MG Oral Tablet atorvastatin (LIPITOR) 40 MG tablet atorvastatin (LIPITOR) 40 MG tablet 04/08/2020 12:00:00 AM EDT 40 mg Oral aborted Take 40 mg by mouth daily [facility] Nitroglycerin 0.3 MG Sublingual Tablet Nitroglycerin 0.3 MG 04/08/2020 12:00:00 AM EDT active Nitroglycerin 0.3 MG eCW1 ([facility]) Nitroglycerin 0.3 MG Sublingual Tablet Nitroglycerin 0.3 MG 04/08/2020 12:00:00 AM EDT active Nitroglycerin 0.3 MG eCW1 ([facility]) Nitroglycerin 0.3 MG Sublingual Tablet Nitroglycerin 0.3 MG 04/08/2020 12:00:00 AM EDT active Nitroglycerin 0.3 MG eCW1 ([facility]) Nitroglycerin 0.3 MG Sublingual Tablet Nitroglycerin 0.3 MG 04/08/2020 12:00:00 AM EDT active Nitroglycerin 0.3 MG eCW1 ([facility]) Nitroglycerin 0.3 MG Sublingual Tablet Nitroglycerin 0.3 MG 04/08/2020 12:00:00 AM EDT active Nitroglycerin 0.3 MG eCW1 ([facility]) Nitroglycerin 0.3 MG Sublingual Tablet Nitroglycerin 0.3 MG 04/08/2020 12:00:00 AM EDT active Nitroglycerin 0.3 MG eCW1 ([facility]) Nitroglycerin 0.3 MG Sublingual Tablet Nitroglycerin 0.3 MG 04/08/2020 12:00:00 AM EDT active Nitroglycerin 0.3 MG eCW1 ([facility]) Nitroglycerin 0.3 MG Sublingual Tablet Nitroglycerin 0.3 MG 04/08/2020 12:00:00 AM EDT active Nitroglycerin 0.3 MG eCW1 ([facility]) Nitroglycerin 0.3 MG Sublingual Tablet Nitroglycerin 0.3 MG 04/08/2020 12:00:00 AM EDT active Nitroglycerin 0.3 MG eCW1 ([facility]) Nitroglycerin 0.3 MG Sublingual Tablet Nitroglycerin 0.3 MG 04/08/2020 12:00:00 AM EDT active Nitroglycerin 0.3 MG eCW1 ([facility]) Nitroglycerin 0.3 MG Sublingual Tablet Nitroglycerin 0.3 MG 04/08/2020 12:00:00 AM EDT active Nitroglycerin 0.3 MG eCW1 ([facility]) Nitroglycerin 0.3 MG Sublingual Tablet Nitroglycerin 0.3 MG 04/08/2020 12:00:00 AM EDT active Nitroglycerin 0.3 MG eCW1 ([facility]) Nitroglycerin 0.3 MG Sublingual Tablet Nitroglycerin 0.3 MG 04/08/2020 12:00:00 AM EDT active Nitroglycerin 0.3 MG eCW1 ([facility]) Nitroglycerin 0.3 MG Sublingual Tablet Nitroglycerin 0.3 MG 04/08/2020 12:00:00 AM EDT active Nitroglycerin 0.3 MG eCW1 ([facility]) Nitroglycerin 0.3 MG Sublingual Tablet Nitroglycerin 0.3 MG 04/08/2020 12:00:00 AM EDT active Nitroglycerin 0.3 MG eCW1 ([facility]) Nitroglycerin 0.3 MG Sublingual Tablet Nitroglycerin 0.3 MG 04/08/2020 12:00:00 AM EDT active Nitroglycerin 0.3 MG eCW1 ([facility]) Clonidine Hydrochloride 0.1 MG Oral Tablet Clonidine H Cl 0.1 MG Clonidine HCl 0.1 MG 04/03/2020 12:00:00 AM EDT 1.0 {tablet} suspe nded Clonidine HCl 0.1 MG eCW1 ([facility]) Clonidine Hydrochloride 0.1 MG Oral Tablet Clonidine H Cl 0.1 MG Clonidine HCl 0.1 MG 04/03/2020 12:00:00 AM EDT 1.0 {tablet} suspe nded Clonidine HCl 0.1 MG eCW1 ([facility]) Hydrochlorothiazide 25 MG Oral Tablet Hydrochlorothiazide 25 MG 04/03/2020 12:00:00 AM EDT 1.0 {tablet_in_the_morning} acti ve Hydrochlorothiazide 25 MG eCW1 ([facility]) Hydrochlorothiazide 25 MG Oral Tablet Hydrochlorothiazide 25 MG 04/03/2020 12:00:00 AM EDT 1.0 {tablet_in_the_morning} acti ve Hydrochlorothiazide 25 MG eCW1 ([facility]) Hydrochlorothiazide 25 MG Oral Tablet Hydrochlorothiazide 25 MG 04/03/2020 12:00:00 AM EDT 1.0 {tablet_in_the_morning} acti ve Hydrochlorothiazide 25 MG eCW1 ([facility]) atorvastatin 80 MG Oral Tablet Atorvastatin Calcium 80 MG Atorvastatin Calcium 80 MG 04/03/2020 12:00:00 AM EDT 1.0 {tablet} activ e Atorvastatin Calcium 80 MG eCW1 ([facility]) Hydrochlorothiazide 25 MG Oral Tablet Hydrochlorothiazide 25 MG 04/03/2020 12:00:00 AM EDT 1.0 {tablet_in_the_morning} acti ve Hydrochlorothiazide 25 MG eCW1 ([facility]) Hydrochlorothiazide 25 MG Oral Tablet Hydrochlorothiazide 25 MG 04/03/2020 12:00:00 AM EDT 1.0 {tablet_in_the_morning} acti ve Hydrochlorothiazide 25 MG eCW1 ([facility]) Isosorbide Dinitrate 30 MG Oral Tablet Isosorbide Dinitrate 30 MG 04/03/2020 12:00:00 AM EDT 1.0 {tablet} active Is osorbide Dinitrate 30 MG eCW1 ([facility]) Hydrochlorothiazide 25 MG Oral Tablet Hydrochlorothiazide 25 MG 04/03/2020 12:00:00 AM EDT 1.0 {tablet_in_the_morning} acti ve Hydrochlorothiazide 25 MG eCW1 ([facility]) Hydrochlorothiazide 25 MG Oral Tablet Hydrochlorothiazide 25 MG 04/03/2020 12:00:00 AM EDT 1.0 {tablet_in_the_morning} acti ve Hydrochlorothiazide 25 MG eCW1 ([facility]) Aspirin 81 MG Delayed Release Oral Tablet Aspirin 81 81 MG A spirin 81 81 MG 04/03/2020 12:00:00 AM EDT 1.0 {tablet} active Aspirin 81 81 MG eCW1 ([facility]) Hydrochlorothiazide 25 MG Oral Tablet Hydrochlorothiazide 25 MG 04/03/2020 12:00:00 AM EDT 1.0 {tablet_in_the_morning} acti ve Hydrochlorothiazide 25 MG eCW1 ([facility]) Aspirin 81 MG Delayed Release Oral Tablet Aspirin 81 81 MG A spirin 81 81 MG 04/03/2020 12:00:00 AM EDT 1.0 {tablet} active Aspirin 81 81 MG eCW1 ([facility]) Hydrochlorothiazide 25 MG Oral Tablet hydroCHLOROthiaz brennan 25 MG hydroCHLOROthiazide 25 MG 04/03/2020 12:00:00 AM EDT 1.0 {tablet_in_the_morning} suspended hydroC HLOROthiazide 25 MG eCW1 ([facility]) Aspirin 81 MG Delayed Release Oral Tablet Aspirin 81 81 MG A spirin 81 81 MG 04/03/2020 12:00:00 AM EDT 1.0 {tablet} active Aspirin 81 81 MG eCW1 ([facility]) Hydrochlorothiazide 25 MG Oral Tablet hydroCHLOROthiaz brennan 25 MG hydroCHLOROthiazide 25 MG 04/03/2020 12:00:00 AM EDT 1.0 {tablet_in_the_morning} active hydroCHL OROthiazide 25 MG eCW1 ([facility]) Hydrochlorothiazide 25 MG Oral Tablet hydroCHLOROthiaz brennan 25 MG hydroCHLOROthiazide 25 MG 04/03/2020 12:00:00 AM EDT 1.0 {tablet_in_the_morning} active hydroCHL OROthiazide 25 MG eCW1 ([facility]) Hydrochlorothiazide 25 MG Oral Tablet Hydrochlorothiazide 25 MG 04/03/2020 12:00:00 AM EDT 1.0 {tablet_in_the_morning} acti ve Hydrochlorothiazide 25 MG eCW1 ([facility]) Isosorbide Dinitrate 30 MG Oral Tablet Isosorbide Dinitrate 30 MG 04/03/2020 12:00:00 AM EDT 1.0 {tablet} active Is osorbide Dinitrate 30 MG eCW1 ([facility]) Hydrochlorothiazide 25 MG Oral Tablet hydroCHLOROthiaz brennan 25 MG hydroCHLOROthiazide 25 MG 04/03/2020 12:00:00 AM EDT 1.0 {tablet_in_the_morning} active hydroCHL OROthiazide 25 MG eCW1 ([facility]) Clonidine Hydrochloride 0.1 MG Oral Tablet cloNIDine H Cl 0.1 MG cloNIDine HCl 0.1 MG 04/03/2020 12:00:00 AM EDT 1.0 {tablet} suspe nded cloNIDine HCl 0.1 MG eCW1 ([facility]) Hydrochlorothiazide 25 MG Oral Tablet Hydrochlorothiazide 25 MG 04/03/2020 12:00:00 AM EDT 1.0 {tablet_in_the_morning} acti ve Hydrochlorothiazide 25 MG eCW1 ([facility]) Hydrochlorothiazide 25 MG Oral Tablet Hydrochlorothiazide 25 MG 04/03/2020 12:00:00 AM EDT 1.0 {tablet_in_the_morning} acti ve Hydrochlorothiazide 25 MG eCW1 ([facility]) Clonidine Hydrochloride 0.1 MG Oral Tablet Clonidine H Cl 0.1 MG Clonidine HCl 0.1 MG 04/03/2020 12:00:00 AM EDT 1.0 {tablet} activ e Clonidine HCl 0.1 MG eCW1 ([facility]) Clonidine Hydrochloride 0.1 MG Oral Tablet Clonidine H Cl 0.1 MG Clonidine HCl 0.1 MG 04/03/2020 12:00:00 AM EDT 1.0 {tablet} suspe nded Clonidine HCl 0.1 MG eCW1 ([facility]) Clonidine Hydrochloride 0.1 MG Oral Tablet Clonidine H Cl 0.1 MG Clonidine HCl 0.1 MG 04/03/2020 12:00:00 AM EDT 1.0 {tablet} suspe nded Clonidine HCl 0.1 MG eCW1 ([facility]) Clonidine Hydrochloride 0.1 MG Oral Tablet cloNIDine H Cl 0.1 MG cloNIDine HCl 0.1 MG 04/03/2020 12:00:00 AM EDT 1.0 {tablet} suspe nded cloNIDine HCl 0.1 MG eCW1 ([facility]) atorvastatin 80 MG Oral Tablet Atorvastatin Calcium 80 MG Atorvastatin Calcium 80 MG 04/03/2020 12:00:00 AM EDT 1.0 {tablet} activ e Atorvastatin Calcium 80 MG eCW1 ([facility]) atorvastatin 80 MG Oral Tablet Atorvastatin Calcium 80 MG Atorvastatin Calcium 80 MG 04/03/2020 12:00:00 AM EDT 1.0 {tablet} activ e Atorvastatin Calcium 80 MG eCW1 ([facility]) Aspirin 81 MG Delayed Release Oral Tablet Aspirin 81 81 MG A spirin 81 81 MG 04/03/2020 12:00:00 AM EDT 1.0 {tablet} active Aspirin 81 81 MG eCW1 ([facility]) Clonidine Hydrochloride 0.1 MG Oral Tablet Clonidine H Cl 0.1 MG Clonidine HCl 0.1 MG 04/03/2020 12:00:00 AM EDT 1.0 {tablet} suspe nded Clonidine HCl 0.1 MG eCW1 ([facility]) Aspirin 81 MG Delayed Release Oral Tablet Aspirin 81 81 MG A spirin 81 81 MG 04/03/2020 12:00:00 AM EDT 1.0 {tablet} active Aspirin 81 81 MG eCW1 ([facility]) Hydrochlorothiazide 25 MG Oral Tablet Hydrochlorothiazide 25 MG 04/03/2020 12:00:00 AM EDT 1.0 {tablet_in_the_morning} acti ve Hydrochlorothiazide 25 MG eCW1 ([facility]) Hydrochlorothiazide 25 MG Oral Tablet Hydrochlorothiazide 25 MG 04/03/2020 12:00:00 AM EDT 1.0 {tablet_in_the_morning} acti ve Hydrochlorothiazide 25 MG eCW1 ([facility]) Clonidine Hydrochloride 0.1 MG Oral Tablet Clonidine H Cl 0.1 MG Clonidine HCl 0.1 MG 04/03/2020 12:00:00 AM EDT 1.0 {tablet} suspe nded Clonidine HCl 0.1 MG eCW1 ([facility]) Hydrochlorothiazide 25 MG Oral Tablet Hydrochlorothiazide 25 MG 04/03/2020 12:00:00 AM EDT 1.0 {tablet_in_the_morning} acti ve Hydrochlorothiazide 25 MG eCW1 ([facility]) Isosorbide Dinitrate 30 MG Oral Tablet Isosorbide Dinitrate 30 MG 04/03/2020 12:00:00 AM EDT 1.0 {tablet} active Is osorbide Dinitrate 30 MG eCW1 ([facility]) Clonidine Hydrochloride 0.1 MG Oral Tablet Clonidine H Cl 0.1 MG Clonidine HCl 0.1 MG 04/03/2020 12:00:00 AM EDT 1.0 {tablet} suspe nded Clonidine HCl 0.1 MG eCW1 ([facility]) Aspirin 81 MG Delayed Release Oral Tablet Aspirin 81 81 MG A spirin 81 81 MG 04/03/2020 12:00:00 AM EDT 1.0 {tablet} active Aspirin 81 81 MG eCW1 ([facility]) Hydrochlorothiazide 25 MG Oral Tablet Hydrochlorothiazide 25 MG 04/03/2020 12:00:00 AM EDT 1.0 {tablet_in_the_morning} acti ve Hydrochlorothiazide 25 MG eCW1 ([facility]) Aspirin 81 MG Delayed Release Oral Tablet Aspirin 81 81 MG A spirin 81 81 MG 04/03/2020 12:00:00 AM EDT 1.0 {tablet} active Aspirin 81 81 MG eCW1 ([facility]) Hydrochlorothiazide 25 MG Oral Tablet Hydrochlorothiazide 25 MG 04/03/2020 12:00:00 AM EDT 1.0 {tablet_in_the_morning} acti ve Hydrochlorothiazide 25 MG eCW1 ([facility]) Aspirin 81 MG Delayed Release Oral Tablet Aspirin 81 81 MG A spirin 81 81 MG 04/03/2020 12:00:00 AM EDT 1.0 {tablet} active Aspirin 81 81 MG eCW1 ([facility]) atorvastatin 80 MG Oral Tablet Atorvastatin Calcium 80 MG Atorvastatin Calcium 80 MG 04/03/2020 12:00:00 AM EDT 1.0 {tablet} activ e Atorvastatin Calcium 80 MG eCW1 ([facility]) Hydrochlorothiazide 25 MG Oral Tablet Hydrochlorothiazide 25 MG 04/03/2020 12:00:00 AM EDT 1.0 {tablet_in_the_morning} acti ve Hydrochlorothiazide 25 MG eCW1 ([facility]) Clonidine Hydrochloride 0.1 MG Oral Tablet Clonidine H Cl 0.1 MG Clonidine HCl 0.1 MG 04/03/2020 12:00:00 AM EDT 1.0 {tablet} suspe nded Clonidine HCl 0.1 MG eCW1 ([facility]) pregabalin 150 MG Oral Capsule pregabalin (LYRICA) 150 MG capsule pregabalin (LYRICA) 150 MG capsule 04/03/2020 12:00:00 AM EDT aborted TK 1 C PO BID. MDD 2 CS [facility] Clonidine Hydrochloride 0.1 MG Oral Tablet Clonidine H Cl 0.1 MG Clonidine HCl 0.1 MG 04/03/2020 12:00:00 AM EDT 1.0 {tablet} suspe nded Clonidine HCl 0.1 MG eCW1 ([facility]) Clonidine Hydrochloride 0.1 MG Oral Tablet Clonidine H Cl 0.1 MG Clonidine HCl 0.1 MG 04/03/2020 12:00:00 AM EDT 1.0 {tablet} suspe nded Clonidine HCl 0.1 MG eCW1 ([facility]) Hydrochlorothiazide 25 MG Oral Tablet hydroCHLOROthiaz brennan 25 MG hydroCHLOROthiazide 25 MG 04/03/2020 12:00:00 AM EDT 1.0 {tablet_in_the_morning} active hydroCHL OROthiazide 25 MG eCW1 ([facility]) meloxicam 15 MG Oral Tablet meloxicam (MOBIC) 15 MG ta blet meloxicam (MOBIC) 15 MG tablet 04/03/2020 12:00:00 AM EDT aborted as needed [facility] Clonidine Hydrochloride 0.1 MG Oral Tablet Clonidine H Cl 0.1 MG Clonidine HCl 0.1 MG 04/03/2020 12:00:00 AM EDT 1.0 {tablet} suspe nded Clonidine HCl 0.1 MG eCW1 ([facility]) Hydrochlorothiazide 25 MG Oral Tablet Hydrochlorothiazide 25 MG 04/03/2020 12:00:00 AM EDT 1.0 {tablet_in_the_morning} acti ve Hydrochlorothiazide 25 MG eCW1 ([facility]) Hydrochlorothiazide 25 MG Oral Tablet Hydrochlorothiazide 25 MG 04/03/2020 12:00:00 AM EDT 1.0 {tablet_in_the_morning} acti ve Hydrochlorothiazide 25 MG eCW1 ([facility]) Isosorbide Dinitrate 30 MG Oral Tablet Isosorbide Dinitrate 30 MG 04/03/2020 12:00:00 AM EDT 1.0 {tablet} active Is osorbide Dinitrate 30 MG eCW1 ([facility]) Aspirin 81 MG Delayed Release Oral Tablet Aspirin 81 81 MG A spirin 81 81 MG 04/03/2020 12:00:00 AM EDT 1.0 {tablet} active Aspirin 81 81 MG eCW1 ([facility]) Hydrochlorothiazide 25 MG Oral Tablet Hydrochlorothiazide 25 MG 04/03/2020 12:00:00 AM EDT 1.0 {tablet_in_the_morning} acti ve Hydrochlorothiazide 25 MG eCW1 ([facility]) Clonidine Hydrochloride 0.1 MG Oral Tablet Clonidine H Cl 0.1 MG Clonidine HCl 0.1 MG 04/03/2020 12:00:00 AM EDT 1.0 {tablet} activ e Clonidine HCl 0.1 MG eCW1 ([facility]) Aspirin 81 MG Delayed Release Oral Tablet Aspirin 81 81 MG A spirin 81 81 MG 04/03/2020 12:00:00 AM EDT 1.0 {tablet} active Aspirin 81 81 MG eCW1 ([facility]) atorvastatin 80 MG Oral Tablet Atorvastatin Calcium 80 MG Atorvastatin Calcium 80 MG 04/03/2020 12:00:00 AM EDT 1.0 {tablet} activ e Atorvastatin Calcium 80 MG eCW1 ([facility]) Hydrochlorothiazide 25 MG Oral Tablet Hydrochlorothiazide 25 MG 04/03/2020 12:00:00 AM EDT 1.0 {tablet_in_the_morning} acti ve Hydrochlorothiazide 25 MG eCW1 ([facility]) Isosorbide Dinitrate 30 MG Oral Tablet Isosorbide Dinitrate 30 MG 04/03/2020 12:00:00 AM EDT 1.0 {tablet} active Is osorbide Dinitrate 30 MG eCW1 ([facility]) Hydrochlorothiazide 25 MG Oral Tablet Hydrochlorothiazide 25 MG 04/03/2020 12:00:00 AM EDT 1.0 {tablet_in_the_morning} acti ve Hydrochlorothiazide 25 MG eCW1 ([facility]) Hydrochlorothiazide 25 MG Oral Tablet Hydrochlorothiazide 25 MG 04/03/2020 12:00:00 AM EDT 1.0 {tablet_in_the_morning} acti ve Hydrochlorothiazide 25 MG eCW1 ([facility]) Aspirin 81 MG Delayed Release Oral Tablet Aspirin 81 81 MG A spirin 81 81 MG 04/03/2020 12:00:00 AM EDT 1.0 {tablet} active Aspirin 81 81 MG eCW1 ([facility]) Clonidine Hydrochloride 0.1 MG Oral Tablet Clonidine H Cl 0.1 MG Clonidine HCl 0.1 MG 04/03/2020 12:00:00 AM EDT 1.0 {tablet} suspe nded Clonidine HCl 0.1 MG eCW1 ([facility]) Clonidine Hydrochloride 0.1 MG Oral Tablet Clonidine H Cl 0.1 MG Clonidine HCl 0.1 MG 04/03/2020 12:00:00 AM EDT 1.0 {tablet} suspe nded Clonidine HCl 0.1 MG eCW1 ([facility]) Isosorbide Dinitrate 30 MG Oral Tablet Isosorbide Dinitrate 30 MG 04/03/2020 12:00:00 AM EDT 1.0 {tablet} active Is osorbide Dinitrate 30 MG eCW1 ([facility]) Aspirin 81 MG Delayed Release Oral Tablet Aspirin 81 81 MG A spirin 81 81 MG 04/03/2020 12:00:00 AM EDT 1.0 {tablet} active Aspirin 81 81 MG eCW1 ([facility]) Hydrochlorothiazide 25 MG Oral Tablet Hydrochlorothiazide 25 MG 04/03/2020 12:00:00 AM EDT 1.0 {tablet_in_the_morning} acti ve Hydrochlorothiazide 25 MG eCW1 ([facility]) atorvastatin 80 MG Oral Tablet Atorvastatin Calcium 80 MG Atorvastatin Calcium 80 MG 04/03/2020 12:00:00 AM EDT 1.0 {tablet} activ e Atorvastatin Calcium 80 MG eCW1 ([facility]) Clonidine Hydrochloride 0.1 MG Oral Tablet Clonidine H Cl 0.1 MG Clonidine HCl 0.1 MG 04/03/2020 12:00:00 AM EDT 1.0 {tablet} suspe nded Clonidine HCl 0.1 MG eCW1 ([facility]) Clonidine Hydrochloride 0.1 MG Oral Tablet Clonidine H Cl 0.1 MG Clonidine HCl 0.1 MG 04/03/2020 12:00:00 AM EDT 1.0 {tablet} suspe nded Clonidine HCl 0.1 MG eCW1 ([facility]) Aspirin 81 MG Delayed Release Oral Tablet Aspirin 81 81 MG A spirin 81 81 MG 04/03/2020 12:00:00 AM EDT 1.0 {tablet} active Aspirin 81 81 MG eCW1 ([facility]) Clonidine Hydrochloride 0.1 MG Oral Tablet cloNIDine H Cl 0.1 MG cloNIDine HCl 0.1 MG 04/03/2020 12:00:00 AM EDT 1.0 {tablet} suspe nded cloNIDine HCl 0.1 MG eCW1 ([facility]) Clonidine Hydrochloride 0.1 MG Oral Tablet Clonidine H Cl 0.1 MG Clonidine HCl 0.1 MG 04/03/2020 12:00:00 AM EDT 1.0 {tablet} suspe nded Clonidine HCl 0.1 MG eCW1 ([facility]) Clonidine Hydrochloride 0.1 MG Oral Tablet Clonidine H Cl 0.1 MG Clonidine HCl 0.1 MG 04/03/2020 12:00:00 AM EDT 1.0 {tablet} suspe nded Clonidine HCl 0.1 MG eCW1 ([facility]) Isosorbide Dinitrate 30 MG Oral Tablet Isosorbide Dinitrate 30 MG 04/03/2020 12:00:00 AM EDT 1.0 {tablet} suspended Isosorbide Dinitrate 30 MG eCW1 ([facility]) Clonidine Hydrochloride 0.1 MG Oral Tablet Clonidine H Cl 0.1 MG Clonidine HCl 0.1 MG 04/03/2020 12:00:00 AM EDT 1.0 {tablet} suspe nded Clonidine HCl 0.1 MG eCW1 ([facility]) Hydrochlorothiazide 25 MG Oral Tablet Hydrochlorothiazide 25 MG 04/03/2020 12:00:00 AM EDT 1.0 {tablet_in_the_morning} acti ve Hydrochlorothiazide 25 MG eCW1 ([facility]) Clonidine Hydrochloride 0.1 MG Oral Tablet Clonidine H Cl 0.1 MG Clonidine HCl 0.1 MG 04/03/2020 12:00:00 AM EDT 1.0 {tablet} suspe nded Clonidine HCl 0.1 MG eCW1 ([facility]) Clonidine Hydrochloride 0.1 MG Oral Tablet Clonidine H Cl 0.1 MG Clonidine HCl 0.1 MG 04/03/2020 12:00:00 AM EDT 1.0 {tablet} suspe nded Clonidine HCl 0.1 MG eCW1 ([facility]) Clonidine Hydrochloride 0.1 MG Oral Tablet cloNIDine H Cl 0.1 MG cloNIDine HCl 0.1 MG 04/03/2020 12:00:00 AM EDT 1.0 {tablet} suspe nded cloNIDine HCl 0.1 MG eCW1 ([facility]) Clonidine Hydrochloride 0.1 MG Oral Tablet cloNIDine H Cl 0.1 MG cloNIDine HCl 0.1 MG 04/03/2020 12:00:00 AM EDT 1.0 {tablet} suspe nded cloNIDine HCl 0.1 MG eCW1 ([facility]) Hydrochlorothiazide 25 MG Oral Tablet Hydrochlorothiazide 25 MG 04/03/2020 12:00:00 AM EDT 1.0 {tablet_in_the_morning} acti ve Hydrochlorothiazide 25 MG eCW1 ([facility]) Clonidine Hydrochloride 0.1 MG Oral Tablet Clonidine H Cl 0.1 MG Clonidine HCl 0.1 MG 04/03/2020 12:00:00 AM EDT 1.0 {tablet} suspe nded Clonidine HCl 0.1 MG eCW1 ([facility]) Hydrochlorothiazide 25 MG Oral Tablet Hydrochlorothiazide 25 MG 04/03/2020 12:00:00 AM EDT 1.0 {tablet_in_the_morning} acti ve Hydrochlorothiazide 25 MG eCW1 ([facility]) Aspirin 81 MG Delayed Release Oral Tablet Aspirin 81 81 MG A spirin 81 81 MG 04/03/2020 12:00:00 AM EDT 1.0 {tablet} active Aspirin 81 81 MG eCW1 ([facility]) Clonidine Hydrochloride 0.1 MG Oral Tablet Clonidine H Cl 0.1 MG Clonidine HCl 0.1 MG 04/03/2020 12:00:00 AM EDT 1.0 {tablet} activ e Clonidine HCl 0.1 MG eCW1 ([facility]) atorvastatin 80 MG Oral Tablet Atorvastatin Calcium 80 MG Atorvastatin Calcium 80 MG 04/03/2020 12:00:00 AM EDT 1.0 {tablet} activ e Atorvastatin Calcium 80 MG eCW1 ([facility]) Clonidine Hydrochloride 0.1 MG Oral Tablet Clonidine H Cl 0.1 MG Clonidine HCl 0.1 MG 04/03/2020 12:00:00 AM EDT 1.0 {tablet} suspe nded Clonidine HCl 0.1 MG eCW1 ([facility]) Hydrochlorothiazide 25 MG Oral Tablet Hydrochlorothiazide 25 MG 04/03/2020 12:00:00 AM EDT 1.0 {tablet_in_the_morning} acti ve Hydrochlorothiazide 25 MG eCW1 ([facility]) Aspirin 81 MG Delayed Release Oral Tablet Aspirin 81 81 MG A spirin 81 81 MG 04/03/2020 12:00:00 AM EDT 1.0 {tablet} active Aspirin 81 81 MG eCW1 ([facility]) Clonidine Hydrochloride 0.1 MG Oral Tablet Clonidine H Cl 0.1 MG Clonidine HCl 0.1 MG 04/03/2020 12:00:00 AM EDT 1.0 {tablet} suspe nded Clonidine HCl 0.1 MG eCW1 ([facility]) Albuterol Sulfate HFA 108 (90 Base) MCG/ACT Albuterol Sulfate HFA 108 (90 Base) MCG/ACT 03/27/2020 12:00:00 AM EDT 1.0 {puff_as_needed} suspended Albuterol Sulfate HFA 108 (90 Base) MCG/ACT eCW1 ([facility]) Albuterol Sulfate HFA 108 (90 Base) MCG/ACT Albuterol Sulfate HFA 108 (90 Base) MCG/ACT 03/27/2020 12:00:00 AM EDT 1.0 {puff_as_needed} suspended Albuterol Sulfate HFA 108 (90 Base) MCG/ACT eCW1 ([facility]) Albuterol Sulfate HFA 108 (90 Base) MCG/ACT Albuterol Sulfate HFA 108 (90 Base) MCG/ACT 03/27/2020 12:00:00 AM EDT 1.0 {puff_as_needed} suspended Albuterol Sulfate HFA 108 (90 Base) MCG/ACT eCW1 ([facility]) Albuterol Sulfate HFA 108 (90 Base) MCG/ACT Albuterol Sulfate HFA 108 (90 Base) MCG/ACT 03/27/2020 12:00:00 AM EDT 1.0 {puff_as_needed} active Albuterol Sulfate HFA 108 (90 Base) MCG/ACT eCW1 ([facility]) Albuterol Sulfate HFA 108 (90 Base) MCG/ACT Albuterol Sulfate HFA 108 (90 Base) MCG/ACT 03/27/2020 12:00:00 AM EDT 1.0 {puff_as_needed} suspended Albuterol Sulfate HFA 108 (90 Base) MCG/ACT eCW1 ([facility]) Albuterol Sulfate HFA 108 (90 Base) MCG/ACT Albuterol Sulfate HFA 108 (90 Base) MCG/ACT 03/27/2020 12:00:00 AM EDT 1.0 {puff_as_needed} suspended Albuterol Sulfate HFA 108 (90 Base) MCG/ACT eCW1 ([facility]) Albuterol Sulfate HFA 108 (90 Base) MCG/ACT Albuterol Sulfate HFA 108 (90 Base) MCG/ACT 03/27/2020 12:00:00 AM EDT 1.0 {puff_as_needed} active Albuterol Sulfate HFA 108 (90 Base) MCG/ACT eCW1 ([facility]) Albuterol Sulfate HFA 108 (90 Base) MCG/ACT Albuterol Sulfate HFA 108 (90 Base) MCG/ACT 03/27/2020 12:00:00 AM EDT 1.0 {puff_as_needed} active Albuterol Sulfate HFA 108 (90 Base) MCG/ACT eCW1 ([facility]) Albuterol Sulfate HFA 108 (90 Base) MCG/ACT Albuterol Sulfate HFA 108 (90 Base) MCG/ACT 03/27/2020 12:00:00 AM EDT 1.0 {puff_as_needed} active Albuterol Sulfate HFA 108 (90 Base) MCG/ACT eCW1 ([facility]) Albuterol Sulfate HFA 108 (90 Base) MCG/ACT Albuterol Sulfate HFA 108 (90 Base) MCG/ACT 03/27/2020 12:00:00 AM EDT 1.0 {puff_as_needed} active Albuterol Sulfate HFA 108 (90 Base) MCG/ACT eCW1 ([facility]) Albuterol Sulfate HFA 108 (90 Base) MCG/ACT Albuterol Sulfate HFA 108 (90 Base) MCG/ACT 03/27/2020 12:00:00 AM EDT 1.0 {puff_as_needed} suspended Albuterol Sulfate HFA 108 (90 Base) MCG/ACT eCW1 ([facility]) Albuterol Sulfate HFA 108 (90 Base) MCG/ACT Albuterol Sulfate HFA 108 (90 Base) MCG/ACT 03/27/2020 12:00:00 AM EDT 1.0 {puff_as_needed} suspended Albuterol Sulfate HFA 108 (90 Base) MCG/ACT eCW1 ([facility]) Albuterol Sulfate HFA 108 (90 Base) MCG/ACT Albuterol Sulfate HFA 108 (90 Base) MCG/ACT 03/27/2020 12:00:00 AM EDT 1.0 {puff_as_needed} suspended Albuterol Sulfate HFA 108 (90 Base) MCG/ACT eCW1 ([facility]) Albuterol Sulfate HFA 108 (90 Base) MCG/ACT Albuterol Sulfate HFA 108 (90 Base) MCG/ACT 03/27/2020 12:00:00 AM EDT 1.0 {puff_as_needed} active Albuterol Sulfate HFA 108 (90 Base) MCG/ACT eCW1 ([facility]) Albuterol Sulfate HFA 108 (90 Base) MCG/ACT Albuterol Sulfate HFA 108 (90 Base) MCG/ACT 03/27/2020 12:00:00 AM EDT 1.0 {puff_as_needed} suspended Albuterol Sulfate HFA 108 (90 Base) MCG/ACT eCW1 ([facility]) Albuterol Sulfate HFA 108 (90 Base) MCG/ACT Albuterol Sulfate HFA 108 (90 Base) MCG/ACT 03/27/2020 12:00:00 AM EDT 1.0 {puff_as_needed} suspended Albuterol Sulfate HFA 108 (90 Base) MCG/ACT eCW1 ([facility]) Albuterol Sulfate HFA 108 (90 Base) MCG/ACT Albuterol Sulfate HFA 108 (90 Base) MCG/ACT 03/27/2020 12:00:00 AM EDT 1.0 {puff_as_needed} active Albuterol Sulfate HFA 108 (90 Base) MCG/ACT eCW1 ([facility]) Albuterol Sulfate HFA 108 (90 Base) MCG/ACT Albuterol Sulfate HFA 108 (90 Base) MCG/ACT 03/27/2020 12:00:00 AM EDT 1.0 {puff_as_needed} suspended Albuterol Sulfate HFA 108 (90 Base) MCG/ACT eCW1 ([facility]) Albuterol Sulfate HFA 108 (90 Base) MCG/ACT Albuterol Sulfate HFA 108 (90 Base) MCG/ACT 03/27/2020 12:00:00 AM EDT 1.0 {puff_as_needed} active Albuterol Sulfate HFA 108 (90 Base) MCG/ACT eCW1 ([facility]) Albuterol Sulfate HFA 108 (90 Base) MCG/ACT Albuterol Sulfate HFA 108 (90 Base) MCG/ACT 03/27/2020 12:00:00 AM EDT 1.0 {puff_as_needed} active Albuterol Sulfate HFA 108 (90 Base) MCG/ACT eCW1 ([facility]) albuterol (PROVENTIL HFA;VENTOLIN HFA) 108 (90 Base) M CG/ACT inhaler [id number] 03/27/2020 12:00:00 AM EDT abort ed INHALE ONE PUFF BY MOUTH EVERY 4 HOURS NEEDED [facility] Albuterol Sulfate HFA 108 (90 Base) MCG/ACT Albuterol Sulfate HFA 108 (90 Base) MCG/ACT 03/27/2020 12:00:00 AM EDT 1.0 {puff_as_needed} active Albuterol Sulfate HFA 108 (90 Base) MCG/ACT eCW1 ([facility]) Albuterol Sulfate HFA 108 (90 Base) MCG/ACT Albuterol Sulfate HFA 108 (90 Base) MCG/ACT 03/27/2020 12:00:00 AM EDT 1.0 {puff_as_needed} suspended Albuterol Sulfate HFA 108 (90 Base) MCG/ACT eCW1 ([facility]) Albuterol Sulfate HFA 108 (90 Base) MCG/ACT Albuterol Sulfate HFA 108 (90 Base) MCG/ACT 03/27/2020 12:00:00 AM EDT 1.0 {puff_as_needed} suspended Albuterol Sulfate HFA 108 (90 Base) MCG/ACT eCW1 ([facility]) Albuterol Sulfate HFA 108 (90 Base) MCG/ACT Albuterol Sulfate HFA 108 (90 Base) MCG/ACT 03/27/2020 12:00:00 AM EDT 1.0 {puff_as_needed} suspended Albuterol Sulfate HFA 108 (90 Base) MCG/ACT eCW1 ([facility]) Albuterol Sulfate HFA 108 (90 Base) MCG/ACT Albuterol Sulfate HFA 108 (90 Base) MCG/ACT 03/27/2020 12:00:00 AM EDT 1.0 {puff_as_needed} active Albuterol Sulfate HFA 108 (90 Base) MCG/ACT eCW1 ([facility]) Albuterol Sulfate HFA 108 (90 Base) MCG/ACT Albuterol Sulfate HFA 108 (90 Base) MCG/ACT 03/27/2020 12:00:00 AM EDT 1.0 {puff_as_needed} suspended Albuterol Sulfate HFA 108 (90 Base) MCG/ACT eCW1 ([facility]) Albuterol Sulfate HFA 108 (90 Base) MCG/ACT Albuterol Sulfate HFA 108 (90 Base) MCG/ACT 03/27/2020 12:00:00 AM EDT 1.0 {puff_as_needed} suspended Albuterol Sulfate HFA 108 (90 Base) MCG/ACT eCW1 ([facility]) 90 mcg/actuation 03/27/2020 12:00:00 AM EDT [...] Sulfate HFA 108 (90 Base) MCG/ACT eCW1 ([facility]) Albuterol Sulfate HFA 108 (90 Base) MCG/ACT Albuterol Sulfate HFA 108 (90 Base) MCG/ACT 03/27/2020 12:00:00 AM EDT 1.0 {puff_as_needed} active Albuterol Sulfate HFA 108 (90 Base) MCG/ACT eCW1 ([facility]) Albuterol Sulfate HFA 108 (90 Base) MCG/ACT Albuterol Sulfate HFA 108 (90 Base) MCG/ACT 03/27/2020 12:00:00 AM EDT 1.0 {puff_as_needed} suspended Albuterol Sulfate HFA 108 (90 Base) MCG/ACT eCW1 ([facility]) Albuterol Sulfate HFA 108 (90 Base) MCG/ACT Albuterol Sulfate HFA 108 (90 Base) MCG/ACT 03/27/2020 12:00:00 AM EDT 1.0 {puff_as_needed} active Albuterol Sulfate HFA 108 (90 Base) MCG/ACT eCW1 ([facility]) Albuterol Sulfate HFA 108 (90 Base) MCG/ACT Albuterol Sulfate HFA 108 (90 Base) MCG/ACT 03/27/2020 12:00:00 AM EDT 1.0 {puff_as_needed} suspended Albuterol Sulfate HFA 108 (90 Base) MCG/ACT eCW1 ([facility]) Albuterol Sulfate HFA 108 (90 Base) MCG/ACT Albuterol Sulfate HFA 108 (90 Base) MCG/ACT 03/27/2020 12:00:00 AM EDT 1.0 {puff_as_needed} active Albuterol Sulfate HFA 108 (90 Base) MCG/ACT eCW1 ([facility]) pregabalin 150 MG Oral Capsule Pregabalin 03/25/2020 12:00:00 AM EDT ORAL active [facility] ([facility]) Omeprazole 20 MG Delayed Release Oral Ca psule omeprazole (PRILOSEC) 20 MG capsule omeprazole (PRILOSEC) 20 MG capsule 02/07/2020 12:00:00 AM EDT aborted TAKE ONE CAPSULE BY MOUTH EVERY MORNING 30 MINUTES BEFORE MORNING MEAL [facility] pregabalin 150 MG Oral Capsule [Lyrica] Lyrica 01/07/2020 12:00:0 0 AM EDT ORAL completed [facility] ([facility]) Lisinopril 20 MG Oral Tablet lisinopril (PRINIVIL,ZEST RIL) 20 MG tablet lisinopril (PRINIVIL,ZESTRIL) 20 MG tablet 20 mg Oral aborted Take 20 mg by mouth daily [facility] Diltiazem Hydrochloride 30 MG Oral Tablet diltiazem (C ARDIZEM) 30 MG tablet diltiazem (CARDIZEM) 30 MG tablet 30 mg Oral abor jason Take 30 mg by mouth 2 (two) times a day [facility] Insurance Providers Payer name Policy type / Coverage type Policy ID Covered libertarian ID Covered libertarian's relationship to dawson Policy Dawson Plan Information D [facility] Care [facility] P [id number] S [id number] [facility] PLAN [facility] [id number] SP [id number] [employer] [place] Workers Compensation [id number] Self [id number] NO FAULT [id number] Paulina 6 [employer] [place] Workers Compensation [id number] Self [id number] [employer] NO FAULT [id number] SP [id number] PRO[employer] E [id number] Self [id number] [facility] Care [facility] Community Plan P [id number] S [id number] [facility] Care [facility] P [id number] S [id number] [employer] ([place] Workers Compensation [id number] Self [id number] [employer] ([place] Workers Compensation [id number] Self [id number] [employer] ([place] Workers Compensation [id number] Self [id number] [employer] ([place]) Workers Compensation [id number] Self [id number] [employer] ([place]) Workers Compensation [id number] Self [id number] [facility] MEDICAID [id number] xxxxxxxxx [id number] 1 [facility] MEDICAID [id number] Paulina [id number] 46 [facility] MEDICAID [id number] xxxxxxxxx [id number] 5 [facility] MEDICAID [id number] Paulina [id number] PROGRESSIVE CO NO FAULT [id number] SP [id number] SELF PAY ONLY [id number] SP [id number] SELF PAY ONLY SP1 SP SP1 O UNAVAILABLE UNAVAILA BLE SELF PAY ONLY [id number] SP [id number] [employer] O [id number] S [id number] [employer] NF [id number] SP [id number] ANSI-Medicaid [id number] ANSI-Medicaid [id number] ANSI-Medicaid [id number] ANSI-Medicaid [id number] ANSI-Medicaid [id number] ANSI-Medicaid [id number] ANSI-Medicaid [id number] ANSI-Not a Secondary Insurance [id number] ANSI-Medicaid [id number] ANSI-Not a Secondary Insurance [id number] ANSI-Medicaid [id number] ANSI-Not a Secondary Insurance [id number] [facility] [id number] ANSI-Medicaid [id number] ANSI-Not a Secondary Insurance [id number] ANSI-Medicaid [id number] ANSI-Not a Secondary Insurance [id number] ANSI-Not a Secondary Insurance [id number] ANSI-Medicaid [id number] ANSI-Medicaid [id number] ANSI-Not a Secondary Insurance [id number] PROGRESSIVE CO NO FAULT [id number] SP [id number] PROGRESSIVE [employer] NO FAULT [id number] SP [id number] ANSI-Not a Secondary Insurance [id number] ANSI-Medicaid [id number] OTHER WORKERS COMPENSATION [id number] SP [id number] MEDICAID M [id number] S [id number] MEDICAID [id number] SP [id number] PROGRESSIVE CO NO FAULT [id number] SP [id number] [facility] O [id number] S [id number] Managed Care - Community Plan [facility] P [id number] S [id number] ANSI-Medicaid [id number] ANSI-Not a Secondary Insurance [id number] ANSI-Medicaid [id number] ANSI-Not a Secondary Insurance [id number] Medicaid Dental S UNAVAILABLE S UN AVAILABLE PROGRESSIVE [employer] NO FAULT O [id number] S [id number] PROGRESSIVE CO NO FAULT [id number] SP [id number] PROGRESSIVE [employer] NO FAULT O [id number] S [id number] NF [employer] Insurance Claim No. [id number] Claim No. [id number] PROGRESSIVE CO NO FAULT [id number] SP [id number] NO FAULT [id number] Paulina [id number] NO FAULT PI PI NO FAULT [id number] Paulina [id number] [facility]) O [id number] S [id number] SELF PAY UNAVAILABLE SP UNAVAILA BLE [facility] [id number] SP [id number] [facility] [id number] SP [id number] [facility] [id number] SP [id number] PROGRESSIVE CO NO FAULT [id number] SP [id number] PROGRESSIVE CO NO FAULT [id number] SP [id number] PROGRESSIVE CO NO FAULT [id number] SP [id number] [facility] O [id number] S [id number] PROGRESSIVE CO NO FAULT O [id number] S [id number] Medicaid S [id number] S [id number] SELF PAY ONLY - SP1 SP PROGRESSIVE O [id number] S 135 [facility] CLAIMS [id number] SP [id number] MEDICAID [id number] SP [id number] UMR/POMCO RISK MANAGEMENT SP [facility] CLAIMS [id number] SP [id number] PROGRESSIVE CO NO FAULT [id number] SP [id number] PROGRESSIVE CO NO FAULT [id number] SP [id number] SELF PAY ONLY [id number] Problems, Conditions, and Diagnoses Code Display Name Description Problem Type Effective Dates Data Source(s) I10 Essential (primary) hypertension Essential (primary) h ypertension Diagnosis 02/23/2021 07:04:11 AM EDT [facility] Z91.89 Other specified personal risk factors, n ot elsewhere classified Other specified personal risk factors, n Diagnosis 02/23/2021 07:04:11 AM ED T [facility] R07.89 Other chest pain Other chest pain Diagnosis 11/04/2020 03 :10:04 PM EDT [facility] E78.2 Mixed hyperlipidemia Mixed hyperlipidemia Diagnosis 11/04/2020 03:10:04 PM EDT [facility] R55 Syncope and collapse Syncope and collapse Diagnosis 11/04/2020 03:10:04 PM EDT [facility] N28.9 Disorder of kidney and ureter, unspecifi ed Disorder of kidney and ureter, unspecifi Diagnosis 07/01/2020 10:28:25 AM EST [facility] Z01.818 Pre-procedure evaluation check Preop testing Problem 04/13/2021 12:00:00 AM EDT eCW1 ([facility]) N39.0 Urinary tract infectious disease UTI (urinary tract in fection) Problem 04/13/2021 12:00:00 AM EDT eCW1 ([facility]) N20.0 Kidney stone Kidney stone Problem 04/13/2021 12:00:00 A M EDT eCW1 ([facility]) G47.33 ARVIN (obstructive sleep apnea) ARVIN (obstructive sleep a pnea) [id number] 02/23/2021 12:00:00 AM EDT [facility] R07.89 Atypical chest pain Atypical chest pain [id number] 0 11/04/2020 12:00:00 AM EDT [facility] R55 Syncope Syncope [id number] 11/04/2020 12:00:00 AM ED T [facility] I49.3 [id number] PVC (premature ventricular contraction) P roblem 10/01/2020 12:00:00 AM EDT eCW1 ([facility]) R31.29 Microscopic hematuria Microscopic hematuria Problem 08/11/2020 12:00:00 AM EST eCW1 ([facility]) [id number] Essential hypertension Essential hypertension Problem 07/15/2020 12:00:00 AM EST MEDENT ([facility] ) E78.2 Mixed hyperlipidemia Mixed hyperlipidemia [id number] 05/07/2020 12:00:00 AM EST [facility] N28.9 Renal insufficiency Renal insufficiency [id number] 1 07/07/2019 12:00:00 AM EST [facility] I10 Essential hypertension Essential hypertension [id number] 05/07/2020 12:00:00 AM EST [facility] 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 Probl em 04/10/2020 12:00:00 AM EDT eCW1 ([facility]) N20.0 [id number] Kidney stone on left side Problem 04/10/2020 12:00:00 AM EDT eCW1 ([facility]) I10 [id number] Accelerated essential hypertension Proble m 04/08/2020 12:00:00 AM EDT eCW1 ([facility]) H04.123 [id number] Dry eyes Problem 04/05/2020 12:00:00 AM ED T eCW1 ([facility]) E78.5 [id number] Dyslipidemia Problem 04/03/2020 12:00:00 AM EDT eCW1 ([facility]) I20.8 [id number] Stable angina Problem 04/03/2020 12:00:00 AM EDT eCW1 ([facility]) I15.9 [id number] Secondary hypertension Problem 04/03/2020 12 :00:00 AM EDT eCW1 ([facility]) Surgeries/Procedures Procedure Description Date Indications Data Source(s) ECG ROUTINE ECG W/LEAST 12 LDS W/I&R <td>POCT AMB EKG</td><td>Routine</td><td>04/15/2021 5:15 PM EDT</td><td> Atypical chest pain</td><td> </td> 04/15/2021 05:15:00 PM EDT Atypical chest pain [facility] Atypical chest pain OFFICE OUTPATIENT VISIT 15 MINUTES 03/24/2021 12:00:00 AM EDT MEDENT ([facility], ) POCT AMB EKG <td>POCT AMB EKG</td><td>Rou blake</td><td>02/23/2021 8:49 AM EDT</td><td> Atypical chest pain</td><td> </td> 02/23/2021 08:49:00 AM EDT Atypical chest pain [facility] Atypical chest pain OFFICE OUTPATIENT NEW 30 MINUTES 02/20/2021 12:00:00 A M EDT MEDKEVIN ([facility], ) Medication: Lidocaine HCl 2% Jelly 5mL Intravesically 09/17/2020 12:00:00 AM EDT eC ([facility]) BLOOD COUNT COMPLETE AUTO&AUTO DIFRNTL WBC COUNT <td>C BC AND DIFFERENTIAL</td><td>Routine</td><td>09/01/2020</td><td></td><td> </td> 09/01/2020 12:00:00 AM EDT [facility] HEPATIC FUNCTION PANEL <td>HEPATIC FUNCTION PANEL</td><td>Routine</td><td>09/01/2020</td><td></td><td> </td> 09/01/2020 12:00:00 AM EDT [facility] BASIC METABOLIC PANEL CALCIUM TOTAL <td>BASIC METABOLI C PANEL</td><td>Routine</td><td>08/11/2020</td><td></td><td> </td> 08/11/2020 12:00:00 AM EST [facility] BASIC METABOLIC PANEL CALCIUM TOTAL <td>BASIC METABOLI C PANEL</td><td>Routine</td><td>05/23/2020 2:33 PM EST</td><td> Essential hypertension</td><td> </td> 05/23/2020 07:33:00 PM EST Essential hypertension [facility] Essential hypertension ECG ROUTINE ECG W/LEAST 12 LDS W/I&R <td>POCT AMB EKG</td><td>Routine</td><td>05/07/2020 3:30 PM EST</td><td> Essential hypertension</td><td> </td> 05/07/2020 08:30:00 PM EST Essential hypertension [facility] Essential hypertension Results ID Date Data Source [id number] 01/10/2021 05:05:26 PM EDT [facility] Name Value Range Interpretation Code Description Data Anneliese rce(s) Supporting Document(s) &PDF [facility] NGNVDi9mOtIVAtPf11/LOJqyQIIeo4WxTDwjKYe8CKidXGAvJ3HgvGriXRSECw3PLJUaOTKJNNAlTRwm waW [file] AgICAgICAgICAgICAgICAgICAgICAgICAgICAgICAgICAgICAgICAgICAgICAgICAgICAgICAgICAgIC AoSHFyRIWxLWXmWHTvPTKyUY6TIDPcBRCgDPSaIIIpLZClEZAxRKXfCQMvHWMxNNPzEUZmYOCbRVLwYX AgICAgICAgICAgICAgICAgICAgICAgICAgICAgICAg ZNPvGFWzLUHoEBZeUWJzBBBsWVBlXFGsNLIhOZ3VFBAaKMQsNDBrWERuAOMgITThXKRaNYBtOGCsRGWm ICAgICAgICAgICAgICAgICAgICAgICAgICAgICAgICAgICAgICAgICAgICAgICAgICAgICAgICAgICAg LJPhEQApUGTnXM3XZHPbPZPwGZOrJZJjKUVvTHYdQK AgICAgICAgICAgICAgICAgICAgICAgICAgICAgICAgICAgICAgICAgICAgICAgICAgICAgICAgICAgIC StQLJjYHSiSMQfVOFjMOWmAQFrTL1ADWEeJSWmFGZgGVXvIWXtXOSwBWCrRUUaXEXkUTFfCGVpQJXfBF AgICAgICAgICAgICAgICAgICAgICAgICAgICAgICAg RXPnCOCdIYTcVVByREGcFKDqMFPoTXLpQNJqVIDsQS5ZLQAtSAYyBRZeUZHwOPXxKAHbPBVgLCFmDZHk ICAgICAgICAgICAgICAgICAgICAgICAgICAgICAgICAgICAgICAgICAgICAgICAgICAgICAgICAgICAg GGFrMKUaYTVqRUYbXO1EFIJbIPLpECVpKCMaOPDpKS AgICAgICAgICAgICAgICAgICAgICAgICAgICAgICAgICAgICAgICAgICAgICAgICAgICAgICAgICAgIC HvMEEnLUQlANXwTLJjMTUgXBYaQDMtZW6PJJGzVNDcDVTcVEYdWOZbOGYwZJYwILZpXHBcOGWzODLmBH AgICAgICAgICAgICAgICAgICAgICAgICAgICAgICAg LRFtEYJpPNGcCJOmTTQxIXLrNIXkDOMbFBDvGQRfUSSsSD4QTJZcUTPuPBRzPJUuGQNdETVbSJQzCUAn ICAgICAgICAgICAgICAgICAgICAgICAgICAgICAgICAgICAgICAgICAgICAgICAgICAgICAgICAgICAg LZVtTVTvFJLyCRKcLZLzHU5LYCKvHLBgRFZyARUhFO AgICAgICAgICAgICAgICAgICAgICAgICAgICAgICAgICAgICAgICAgICAgICAgICAgICAgICAgICAgIC KwTVJjIIUkFQDiVVYcDYSqYTOjRIDpHRPfOF3EBR71wZHts3U0EKSbLR8naqb/Ik0TYLrwwlEkrGLtAY 3IPeOcKZ7rsl9SPzFyJP3kqa5SIYyUIhLdH2Q6iBNu XQIqSMQOKyEpI17pGLfsXm86HZjiEFAwDiNhCNc1Nd9JWeYpV6ksZHLzGwX3LKDzMpC7FYViIrR3IZYq JdRaIIVsASCtRCNnPHKXMU7XZaByS2UjmO93UZWECu1+WYaojwLlQeiTCtN8UWJeq4QzFVt7FL7DUECp FSeyGF4IFZHuuX3vEBjeVN5ESxC3QuHoRTEGFwFeM0 2vnRByOWs5R6JbGdAiIZEzUahkMCLeLRtcKpRzDVCeOvApTDewID9+ID4+MKjoIQ1CBPtrzgAeBYUtEg 2GDGOtXHD5BSCuaDDfZToaUAPJXBtiLJ6PkICnOJN0nC3mNDixFRUxAEZyK9iCEgLdaBplMV00bEqaqc VsbCBdDQo+Kf3ZGG7rl7WrHZz7fxFaGOjfJYBeOVsz YQSeAYQhEUJoETX8IYB6KFOULqZcJGXwPVTsZJgdGCDmLTPhpe9TQHVbNBOzTfX8QGWcQTXbGFDiHZfg IPUmGTD5BLO6SXOuSGBmVK3TBgFuUIArAGVmDCfaOHCtBIXruf9MRKMnCVEpZbP6GsQyWQSsVMSmJFjs AXRjGIWtCNWrLFFxWMHiOE2FEtBgRIJeHPi9OOeuUU NcTHWytj6LXZAzZUQiYRofSNAxBLXbIIXwMKxkZPAnWOCwHkcuPOEeHATkWS6FRlIlYGMrNHG5OLXnQV YgHDCysp8OHPCaGQDnPbx8RJIvUNKoPHEeVYlmQTSyEHB6DQG0CJEqCXJvTL7BZlSyGPVwXMy3DlAoHU EkMZDolp2HLSYyWEAtYyetKXAsHEAzRERuZWxlLWQf RLW6Xsq9TFRoRKZwSV9WYbFcATAbAVm9RNMkUHMiDSYrlo5QXSLtSXHcYIV5VCIsWGGlDXQpVQjePLUv JCPpQRJ9JGSrNLUoIA3YXyQiYSNlRhYtXtVzDCStGOXrrj1NRIXfIWIhADGiDDJqPOQgWBOiAYgjOWJz GJQ9Ddc1AOXbTFZdBY6BNoYnMLDbWtB5KOBmDXDcOV Yzmj2MLVZvQCFpLJxlUrXpMTTvCDDzICqmIBQuBUI9MYAuOTSvROSdPT4HHxQgLWXpLkBwLTIdXJAgVE Apfy7ACWLaYLQxTwSeJmPeIGTaUOBhNVfoNLYjXLB1UgO5HVCpWHBrIX8MXcYbRQGqVhs9YXDyMVZzYS Wtgr7EAQPxXJNvMFBdDxXeWTJrZQHyICvuVIUvOOJ0 DcF9PWXwAMMiFK7ZQfJnJGSrRfa2CWCaMNHuEACnxq1SYFGrJODtBQNmAhOhSQWjUAUyXNikPGQfTBI2 XDN8VYMmWJSdZE1NYmPvYIWiIqt3LCyiJHGrYRJgfy6KSQZpTZAxTOT9ISNbUUElTQIyTFxrMKWdFZXa Nnv2GFPjONFwIR0NCjQcIWUxHbO4MiFoBAMdCCOgsa 1MTIOdUNYoXNw1UHWbFIDyZGUzPJohDAArVJJqGVIkNHUvJCTfME6YLbYyEFHfWeVoFdttGJLbKAIubu 8AJJKtTNZlOLDuMRVjEKWfJFIhOKxgRDReCACtOwKmWTHxIOSqDU1JNsVsULLqZmT9FMlfLCWnNJUxrp 6RNOEqVJXvCrA4RQRdYXLiNAKoKYueDOJsLDJzRLE4 FWEpETHmVP7EKhFhIIRkTvJ3JFAvFEYhFWCizk2GCIDhZEWqPgR0VjEuYRHkCJRjBUmfLMWaGRLdPum1 UOVeRJLtPS0DXcMmBMSsAaIkMBVjBNCaWRUpcp4FpBVueWmdvo2VPArCAr9PmPplOXUlWNpgLx1gtCE0 FEPgOJSZKw4StfInCECrITRJUEdpYUGmQFPzLGJbBP WkSKM3UuX8IgB0BWXmCeNjSXKdSOOjKfntMxD5OMMaFxE0PbD6BjT8ApJvUFkcYBYdKAW7NSHeU8PkYV I+UL1hCAq+Ie2Xc6RnnyE2puKdEIxtUELhBS6SUYSBX2MOQb== ID Date Data Source TOTAL PROTEIN,RANDOM URINE 12/03/2020 12:00:00 AM EDT eCW1 ( [facility]) Name Value Range Interpretation Code Description Data Anneliese rce(s) Supporting Document(s) 125.7 0.0-12.0 TOTAL PROTEIN,RANDOM URIN E eCW1 ([facility]) ID Date Data Source CREATININE,RANDOM URINE 12/03/2020 12:00:00 AM EDT eCW1 ([facility]) Name Value Range Interpretation Code Description Data Anneliese rce(s) Supporting Document(s) 119.0 CREATININE,RANDOM URINE eCW1 ( [facility]) ID Date Data Source Basic Metabolic Profile (BMP) 12/03/2020 12:00:00 AM EDT eCW 1 ([facility]) Name Value Range Interpretation Code Description Data Anneliese rce(s) Supporting Document(s) 12 7-18 BLOOD UREA NITROGEN eCW1 ([facility]) 93 70-100 GLUCOSE, FASTING eCW1 ([facility]) > 60.0 >60 GLOMERULAR FILTRATION RATE eCW 1 ([facility]) 139 136-145 SODIUM LEVEL eCW1 ([facility]) 1.37 0.70-1.30 CREATININE FOR GFR eCW1 ([facility]) 9.1 8.5-10.1 CALCIUM LEVEL eCW1 ([facility]) 31 21-32 CARBON DIOXIDE LEVEL eCW1 ([facility]) 103 98-107 CHLORIDE LEVEL eCW1 ([facility]) 3.7 3.5-5.1 POTASSIUM SERUM eCW1 ([facility]) ID Date Data Source [id number] 11/10/2020 09:45:32 PM EDT [facility] Name Value Range Interpretation Code Description Data Anneliese rce(s) Supporting Document(s) &PDF [facility] RZMMFo7qXdKSUbYz92/ZJAfoVFXbr4YhEQerLQx2HRncNPTgB4QgvAoeHAABBu0GKKUwRGROUMQzNOQj waW [file] ICAgICAgICAgICAgICAgICAgICAgICAgICAgICAgICAgICAgICAgICAgICAgICANCiAgICAgICAgICAg ICAgICAgICAgICAgICAgICAgICAgICAgICAgICAgIC AgICAgICAgICAgICAgICAgICAgICAgICAgICAgICAgICAgICAgICAgICAgICAgICAgICAgICAgICANCi AgICAgICAgICAgICAgICAgICAgICAgICAgICAgICAgICAgICAgICAgICAgICAgICAgICAgICAgICAgIC AgICAgICAgICAgICAgICAgICAgICAgICAgICAgICAg ICAgICAgICANCiAgICAgICAgICAgICAgICAgICAgICAgICAgICAgICAgICAgICAgICAgICAgICAgICAg ICAgICAgICAgICAgICAgICAgICAgICAgICAgICAgICAgICAgICAgICAgICAgICAgICANCiAgICAgICAg ICAgICAgICAgICAgICAgICAgICAgICAgICAgICAgIC AgICAgICAgICAgICAgICAgICAgICAgICAgICAgICAgICAgICAgICAgICAgICAgICAgICAgICAgICAgIC ANCiAgICAgICAgICAgICAgICAgICAgICAgICAgICAgICAgICAgICAgICAgICAgICAgICAgICAgICAgIC AgICAgICAgICAgICAgICAgICAgICAgICAgICAgICAg ICAgICAgICAgICANCiAgICAgICAgICAgICAgICAgICAgICAgICAgICAgICAgICAgICAgICAgICAgICAg ICAgICAgICAgICAgICAgICAgICAgICAgICAgICAgICAgICAgICAgICAgICAgICAgICAgICANCiAgICAg ICAgICAgICAgICAgICAgICAgICAgICAgICAgICAgIC AgICAgICAgICAgICAgICAgICAgICAgICAgICAgICAgICAgICAgICAgICAgICAgICAgICAgICAgICAgIC AgICANCiAgICAgICAgICAgICAgICAgICAgICAgICAgICAgICAgICAgICAgICAgICAgICAgICAgICAgIC AgICAgICAgICAgICAgICAgICAgICAgICAgICAgICAg ICAgICAgICAgICAgICANCiAgICAgICAgICAgICAgICAgICAgICAgICAgICAgICAgICAgICAgICAgICAg ICAgICAgICAgICAgICAgICAgICAgICAgICAgICAgICAgICAgICAgICAgICAgICAgICAgICAgICANCjw/ xUTxG1cktJCxdnK5Q7ikCk7CLf2WNJ7nj3IiRSBuOK ahrpCiTvxCSvNoFAXpGkjROyb3HPfxLR4TbGXgY3IlR3ZuFIuzNM5MJBWjVCAfcGJfRKOfUJCcWuS1QQ NbDNpoZK9TwWFdZUpxUXDqEUDjTgXdWMRuYWLeLQMlHL4VTIFzW713bdOiOu1VUn6GPtUwUJ1qrf7PAH CrGPJpRefWWag0FYgpZY2YfVQjY6GymBWkz0eOCmMb W6DMMVF7XCRzJp3CXVHoCgMfGEFwUVlhJA8rNBQiZAEJhIlocoH2GC7AVB0gahQcZQ0NZdTtXl0bFk6Y GlPpQ8ZwO0AeZCUfVTXDPGcqOY8CATNtOCL3LNSoWUWwGBXDUqQqQ52zAL5IA1Nhi94sYnH3XLGuNgGs BEkfSH11zOupzzIljKUjeTowTQ3XOe0+DQplbmRvYm nHSuyxRTTBJrJaSYJKKdDeTBMeRHViBAVmUuJ4BhGtZk3ZSSMzLGVrTCRiNmCrJQLbRQGkROafGCXqUE MtLhb1SXYgRXPwQW8EJoRzCKCeLaV7IVSgRFPuUHPrmm3IBTKfEDVfBXU0JIRmUZIbTCXuJSarQBHgFM H5AUKtNKEtIBJcKO1VKiIcHDOlHNA0ORCnQOWtLWPq ft4WPWNxKGPsJCmgMiDqMVLrISExLEpdRUXvLBE5TYV8JMAxEJEfEP0SWiLaZHObPOT0CKIxVYPuAQQv sp6HVISrLRHzEiE1RJEuZUPrGUOkCSsvTZPoDHIbEkH1DKDxZXLgKG7SUuAtVGHpYFO8QRZvRYNlVQNb qp8GXQWyFDQiBIPiWBLeHGHqQVTlCRrwIRWeKFY7VD cqRPXcSPUeOR8NTuQaDSBoEWNrTYWpQBSmUYQnih9XUWPnZQXzJOG8YfNlCAOzRUGzNRmrFMYvNOV0Az RuKXWxQXUqPW7MTwYrKUUcXQI2ATZuWOZwSKOlrz5GMTJeKBXjRrguHhAxCUMdRRBvHWhjVCRiMET1Pb k1OEObAJCoPL4RWaYkXBLaBYw7QXMwXXNwEAUpem0V DBUfNOLlFCG7TRXxMUOtOKOwUYhvTLIlTRG3Xuv0PUQpBKSdIX6AQwPrWYKsGGy7XsNsYIQjLDWjqy6C LBTlQOKvGYt1VgJcSDPtCBMaLDicVBPrCQP0JeTrDVQrMQDpIC8BXyLiIBZzAFo1RFajPABeDHCzkb4Q ZCGsDYSoWDS8PDAbQCHzQGHrAQioSRExZLKwUJK1BF YrEQFqNQ9BAfNiZJZjXxVlEWctLZTwRJEguc7WQBMgEMZePUFeUUIqGRWyUQDaZCqrLJPrYVFdXBq3IU VhIFIiWL6BAnIeXWDhUnQuFsEtHYIgHLKnxu4EOAWfDSNaNBM9RyOrLCHwHKVbKBfoNJBaDTOdEfR8YU DmAQIeHZ5JWxRqYRRkReB7ShziLIOdCFAcik5HJNBu KXTaKjYjTTLxDLGuELLjENtnKZCeIQPpBpT2SAOpWKRlES4AFqQfPWLkIdHhDnLlJGCgOGTimz2NYDPb SBIfMPOrONZrIBSgXYQjFKe3iuTkaMRxGVk5HN9WJ7MqbrGrZZILKg7Qw421FTDoYJFrHr3QW5eqNe4w RJTgZGRYNq6XAVe9DEA3YaXhZkOxPQVsWyAgMQYuYQ ObL4AwCzWoSDA6EOP+GHkdZBgsAFPfVZF4HlCsIyY7XTB5K9ZvOeL2ZSV6LQTsIC9eZXRYOr7+DQpzdG ZatVimRPSSJkL2Ytn4UOfrMESTIk0X ID Date Data Source 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 [employer] CYTOLOGY REQ FOR SERVI 08/11/2020 12:00:00 AM EST eC W1 ([facility]) Name Value Range Interpretation Code Description Data Anneliese rce(s) Supporting Document(s) URINE eCW1 ([facility]) ID Date Data Source URINE CULTURE 08/11/2020 12:00:00 AM EST eCW1 ([facility]) Name Value Range Interpretation Code Description Data Anneliese rce(s) Supporting Document(s) URINE CULTURE eCW1 ([facility]) ID Date Data Source UA URINALYSIS 05/01/2020 12:00:00 AM EST eCW1 ([facility]) Name Value Range Interpretation Code Description Data Anneliese rce(s) Supporting Document(s) UA URINALYSIS eCW1 ([facility]) ID Date Data Source LIPID PANEL (CARDIAC RISK) 05/01/2020 12:00:00 AM EST eCW1 ( [facility]) Name Value Range Interpretation Code Description Data Anneliese rce(s) Supporting Document(s) Cholesterol in LDL [Mass/volume] in Serum or Plasma by calculation 165 <100 LDL CHOLESTEROL eCW1 ([facility]) Triglyceride [Mass/volume] in Serum or Plasma by calculation 493 <150 TRIGLYCERIDES LEVEL eCW1 ([facility]) 6.972 <5 CHOLESTEROL RISK RATIO eCW1 ([facility]) Cholesterol [Moles/volume] in Serum or Plasma 251 <200 CHOLESTEROL LEVEL eCW1 ([facility]) Cholesterol in HDL [Moles/volume] in Serum or Plasma 36 >40 HDL CHOLESTEROL eCW1 ([facility]) 215 NON-HDL-C eCW1 ([facility]) ID Date Data Source Comprehensive Metabolic Profile (CMP) 05/01/2020 12:00:00 AM EST eCW1 ([facility]) Name Value Range Interpretation Code Description Data Anneliese rce(s) Supporting Document(s) 15 7-18 BLOOD UREA NITROGEN eCW1 ([facility]) 1.43 0.70-1.30 CREATININE FOR GFR eCW1 ([facility]) > 60.0 >60 GLOMERULAR FILTRATION RATE eCW 1 ([facility]) 115 70-100 GLUCOSE, FASTING eCW1 ([facility]) 138 136-145 SODIUM LEVEL eCW1 ([facility]) 99 98-107 CHLORIDE LEVEL eCW1 ([facility]) 34 21-32 CARBON DIOXIDE LEVEL eCW1 ([facility]) 3.2 3.5-5.1 POTASSIUM SERUM eCW1 ([facility]) 9.3 8.5-10.1 CALCIUM LEVEL eCW1 ([facility]) 61 12-78 ALT/SGPT eCW1 ([facility]) 25 7-37 AST/SGOT eCW1 ([facility]) 72 45-117 ALKALINE PHOSPHATASE eCW1 ([facility]) 0.3 0.2-1.0 BILIRUBIN,TOTAL eCW1 ([facility]) 0.9 ALBUMIN/GLOBULIN RATIO eCW1 ([facility]) 7.4 6.4-8.2 TOTAL PROTEIN eCW1 ([facility]) 3.5 3.2-5.2 ALBUMIN eCW1 ([facility]) ID Date Data Source [id number] 04/14/2020 12:00:00 AM EST eCW1 ([facility]) Name Value Range Interpretation Code Description Data Anneliese rce(s) Supporting Document(s) Albumin/Creatinine [Mass Ratio] in Urine 467.0 MALB URINE SIEMENS eCW1 ([facility]) Microalbumin/Creatinine [Ratio] in Urine 1056.5 0.0-30.0 HAYDEN/CREAT RATIO eCW1 ([facility]) Microalbumin/Creatinine [Mass Ratio] in Urine 44.2 CREATININE, URINE eCW1 ([facility]) Procedure Social History Code Duration Value Status Description Data Source(s ) Smoking 04/15/2021 12:00:00 AM EDT Never Smoker completed Never S moker eCW1 ([facility]) Alcohol intake 04/15/2021 12:00:00 AM EDT Lifetime non-drinker (finding) completed Lifetime non-drinker (finding) [facility] Smoking 03/30/2021 12:00:00 AM EDT Never Smoker completed Never S moker eCW1 ([facility]) Smoking 03/24/2021 12:00:00 AM EDT Never Smoker completed Never S moker eCW1 ([facility]) Smoking 03/24/2021 12:00:00 AM EDT Never Smoked Cigarettes com pleted Never Smoked Cigarettes MEDENT ([facility]) Alcohol intake 02/23/2021 12:00:00 AM EDT Lifetime non-drinker (finding) completed Lifetime non-drinker (finding) [facility] Alcohol intake 11/04/2020 12:00:00 AM EDT Lifetime non-drinker (finding) completed Lifetime non-drinker (finding) [facility] Smoking 09/17/2020 12:00:00 AM EDT Never Smoker completed Never S moker eCW1 ([facility]) Smoking 09/05/2020 12:00:00 AM EDT Never Smoker completed Never S moker eCW1 ([facility]) Smoking 08/11/2020 12:00:00 AM EST Never Smoker completed Never S moker eCW1 ([facility]) Smoking 08/11/2020 12:00:00 AM EST Never Smoker completed Never S moker eCW1 ([facility]) Smoking 08/11/2020 12:00:00 AM EST Never Smoker completed Never S moker eCW1 ([facility]) Smoking 08/11/2020 12:00:00 AM EST Never Smoker completed Never S moker eCW1 ([facility]) Smoking 08/11/2020 12:00:00 AM EST Never Smoker completed Never S moker eCW1 ([facility]) Smoking 07/03/2020 12:00:00 AM EST Never Smoker completed Never S moker eCW1 ([facility]) Smoking 07/03/2020 12:00:00 AM EST Never Smoker completed Never S moker eCW1 ([facility]) Smoking 07/03/2020 12:00:00 AM EST Never Smoker completed Never S moker eCW1 ([facility]) Smoking 07/03/2020 12:00:00 AM EST Never Smoker completed Never S moker eCW1 ([facility]) Smoking 07/03/2020 12:00:00 AM EST Never Smoker completed Never S moker eCW1 ([facility]) Smoking 07/03/2020 12:00:00 AM EST Never Smoker completed Never S moker eCW1 ([facility]) Smoking 07/03/2020 12:00:00 AM EST Never Smoker completed Never S moker eCW1 ([facility]) Smoking 07/03/2020 12:00:00 AM EST Never Smoker completed Never S moker eCW1 ([facility]) Smoking 07/03/2020 12:00:00 AM EST Never Smoker completed Never S moker eCW1 ([facility]) Alcohol intake 07/01/2020 12:00:00 AM EST Never completed [facility] Smoking 07/01/2020 12:00:00 AM EST Never smoker completed Never s moker [facility] Alcohol intake 06/03/2020 12:00:00 AM EST Never completed [facility] Smoking 06/03/2020 12:00:00 AM EST Never smoker completed Never s moker [facility] Smoking 06/02/2020 12:00:00 AM EST Never Smoker completed Never S moker eCW1 ([facility]) Smoking 06/02/2020 12:00:00 AM EST Never Smoker completed Never S moker eCW1 ([facility]) Smoking 06/02/2020 12:00:00 AM EST Never Smoker completed Never S moker eCW1 ([facility]) Smoking 06/02/2020 12:00:00 AM EST Never Smoker completed Never S moker eCW1 ([facility]) Tobacco use and exposure 05/07/2020 12:00:00 AM EST Current user co mpleted Current user [facility] Smoking 05/07/2020 12:00:00 AM EST Never smoker completed Never s ohker [facility] Alcohol intake 05/07/2020 12:00:00 AM EST Never completed [facility] Smoking 05/07/2020 12:00:00 AM EST Never smoker completed Never s moker [facility] Smoking 05/01/2020 12:00:00 AM EST Never Smoker completed Never S moker eCW1 ([facility]) Smoking 05/01/2020 12:00:00 AM EST Never Smoker completed Never S moker eCW1 ([facility]) Smoking 04/10/2020 12:00:00 AM EDT Never Smoker completed Never S moker eCW1 ([facility]) Smoking 04/10/2020 12:00:00 AM EDT Never Smoker completed Never S moker eCW1 ([facility]) Smoking 04/10/2020 12:00:00 AM EDT Never Smoker completed Never S moker eCW1 ([facility]) Smoking 04/10/2020 12:00:00 AM EDT Never Smoker completed Never S moker eCW1 ([facility]) Smoking 04/03/2020 12:00:00 AM EDT Never Smoker completed Never S moker eCW1 ([facility]) Smoking 04/03/2020 12:00:00 AM EDT Never Smoker completed Never S moker eCW1 ([facility]) Smoking 04/03/2020 12:00:00 AM EDT Never Smoker completed Never S moker eCW1 ([facility]) Smoking 04/03/2020 12:00:00 AM EDT Never Smoker completed Never S moker eCW1 ([facility]) Vital Signs ID Date Data Source UNK Name Value Range Interpretation Code Description Data Source(s) Systolic blood pressure 152 mm[Hg] 152 mm[Hg] [facility] Diastolic blood pressure 92 mm[Hg] 92 mm[Hg] [facility] Heart rate 69 /min 69 /min [facility] Body height 190.5 cm 190.5 cm [facility] Body weight 120.203 kg 120.203 kg [facility] Body mass index (BMI) [Ratio] 33.12 kg/m2 33.12 kg/m2 [facility] Oxygen saturation in Arterial blood by Pulse oximetry 100 % 100 % [facility] Body weight 261 [lb_av] 261 [lb_av] eCW1 ([facility]) Body weight 118.39 kg 118.39 kg W1 ([facility]) Body height 74 [in_i] 74 [in_i] W1 ([facility]) Body mass index (BMI) [Ratio] 33.51 kg/m2 33.51 kg/m2 W1 ([facility]) Heart rate 70 /min 70 /min eCW1 ([facility]) Respiratory rate 18 /min 18 /min eCW1 ([facility]) Body temperature 96.3 [degF] 96.3 [degF] eCW1 ( [facility]) Systolic blood pressure 140 mm[Hg] 140 mm[Hg] e CW1 ([facility]) Diastolic blood pressure 84 mm[Hg] 84 mm[Hg] eCW1 ([facility]) Systolic blood pressure 120 mm[Hg] 120 mm[Hg] M EDENT ([facility]) Diastolic blood pressure 70 mm[Hg] 70 mm[Hg] MEDENT ([facility]) Heart rate 67 /min 67 /min [facility] ([facility]) Oxygen saturation in Arterial blood by Pulse oximetry 98 % 98 % [facility] ([facility]) Body height 75 [in_i] 75 [in_i] [facility] ([facility]) 6'3" Body weight 260.00 [lb_av] 260.00 [lb_av] MEDEN T ([facility]) Body mass index (BMI) [Ratio] 32.5 kg/m2 32.5 k g/m2 [facility] ([facility]) Treece body weight 196 [lb_av] 196 [lb_av] MEDEN T ([facility]) Body weight 117.936 kg 117.936 kg [facility] ([facility]) Body surface area Derived from formula 2.45 m2 2.45 m2 [facility] ([facility]) Systolic blood pressure 160 mm[Hg] 160 mm[Hg] [facility] Diastolic blood pressure 110 mm[Hg] 110 mm[Hg] [facility] Heart rate 68 /min 68 /min [facility] Body height 190.5 cm 190.5 cm [facility] Body weight 119.75 kg 119.75 kg [facility] Body mass index (BMI) [Ratio] 33.00 kg/m2 33.00 kg/m2 [facility] Oxygen saturation in Arterial blood by Pulse oximetry 97 % 97 % [facility] body weight 196 [lb_av] 196 [lb_av] MEDEN T ([facility]) Body weight 119.297 kg 119.297 kg [facility] ([facility]) Body surface area Derived from formula 2.47 m2 2.47 m2 [facility] ([facility]) Systolic blood pressure 142 mm[Hg] 142 mm[Hg] M EDENT ([facility]) Diastolic blood pressure 84 mm[Hg] 84 mm[Hg] [facility] ([facility]) Heart rate 70 /min 70 /min [facility] ([facility]) Oxygen saturation in Arterial blood by Pulse oximetry 98 % 98 % [facility] ([facility], ) Body height 75 [in_i] 75 [in_i] [facility] ([facility], ) 6'3" Body weight 263.00 [lb_av] 263.00 [lb_av] MEDEN T ([facility], ) Body mass index (BMI) [Ratio] 32.9 kg/m2 32.9 k g/m2 [facility] ([facility], ) Body weight 254.4 [lb_av] 254.4 [lb_av] eCW1 ([facility]) Body height 74 [in_i] 74 [in_i] eCW1 ([facility]) Body mass index (BMI) [Ratio] 32.66 kg/m2 32.66 kg/m2 W1 ([facility]) Heart rate 75 /min 75 /min eCW1 ([facility]) Respiratory rate 18 /min 18 /min eCW1 ([facility]) Body temperature 97.5 [degF] 97.5 [degF] eCW1 ( [facility]) Systolic blood pressure 130 mm[Hg] 130 mm[Hg] e CW1 ([facility]) Diastolic blood pressure 78 mm[Hg] 78 mm[Hg] eCW1 ([facility]) Systolic blood pressure 136 mm[Hg] 136 mm[Hg] [facility] Diastolic blood pressure 70 mm[Hg] 70 mm[Hg] [facility] Heart rate 76 /min 76 /min [facility] Body weight 116.121 kg 116.121 kg [facility] Body mass index (BMI) [Ratio] 32.00 kg/m2 32.00 kg/m2 [facility] Oxygen saturation in Arterial blood by Pulse oximetry 98 % 98 % [facility] Body weight 255 [lb_av] 255 [lb_av] eCW1 ([facility]) Body height 74 [in_i] 74 [in_i] eCW1 ([facility]) Body mass index (BMI) [Ratio] 32.74 kg/m2 32.74 kg/m2 eCW1 ([facility]) Heart rate 88 /min 88 /min eCW1 ([facility]) Respiratory rate 18 /min 18 /min eCW1 ([facility]) Body temperature 97.5 [degF] 97.5 [degF] eCW1 ( [facility]) Systolic blood pressure 156 mm[Hg] 156 mm[Hg] e CW1 ([facility]) Diastolic blood pressure 113 mm[Hg] 113 mm[Hg] eCW1 ([facility]) Body weight 257 [lb_av] 257 [lb_av] eCW1 ([facility]) Body height 74 [in_i] 74 [in_i] eCW1 ([facility]) Body mass index (BMI) [Ratio] 32.99 kg/m2 32.99 kg/m2 eCW1 ([facility]) Heart rate 118 /min 118 /min eCW1 ([facility]) Respiratory rate 18 /min 18 /min eCW1 ([facility]) Body temperature 96.4 [degF] 96.4 [degF] eCW1 ( [facility]) Systolic blood pressure 144 mm[Hg] 144 mm[Hg] e CW1 ([facility]) Diastolic blood pressure 102 mm[Hg] 102 mm[Hg] eCW1 ([facility]) Body weight 254 [lb_av] 254 [lb_av] eCW1 ([facility]) Body height 74 [in_i] 74 [in_i] eCW1 ([facility]) Body mass index (BMI) [Ratio] 32.61 kg/m2 32.61 kg/m2 eCW1 ([facility]) Heart rate 73 /min 73 /min eCW1 ([facility]) Respiratory rate 18 /min 18 /min eCW1 ([facility]) Body temperature 97.4 [degF] 97.4 [degF] eCW1 ( [facility]) Systolic blood pressure 126 mm[Hg] 126 mm[Hg] e CW1 ([facility]) Diastolic blood pressure 78 mm[Hg] 78 mm[Hg] eCW1 ([facility]) Systolic blood pressure 147 mm[Hg] 147 mm[Hg] [facility] Diastolic blood pressure 100 mm[Hg] 100 mm[Hg] [facility] Heart rate 87 /min 87 /min [facility] Body height 190.5 cm 190.5 cm [facility] Body weight 117.482 kg 117.482 kg [facility] Body mass index (BMI) [Ratio] 32.37 kg/m2 32.37 kg/m2 [facility] Oxygen saturation in Arterial blood by Pulse oximetry 98 % 98 % [facility] Body height 75 [in_i] 75 [in_i] [facility] ([facility], ) 6'3" Body weight 256.38 [lb_av] 256.38 [lb_av] MEDEN T ([facility], ) Heart rate 74 /min 74 /min [facility] ([facility], ) Body mass index (BMI) [Ratio] 32.0 kg/m2 32.0 k g/m2 [facility] ([facility], ) Tree[place] body weight 196 [lb_av] 196 [lb_av] MEDEN T ([facility]) Body weight 116.292 kg 116.292 kg [facility] ([facility]) Body surface area Derived from formula 2.44 m2 2.44 m2 [facility] ([facility]) Systolic blood pressure 171 mm[Hg] 171 mm[Hg] M EDENT ([facility]) Diastolic blood pressure 101 mm[Hg] 101 mm[Hg] [facility] ([facility], ) Body height 75 [in_i] 75 [in_i] MEDENT ([facility]) 6'3" Body weight 256.38 [lb_av] 256.38 [lb_av] MEDEN T ([facility], ) Body mass index (BMI) [Ratio] 32.0 kg/m2 32.0 k g/m2 MEDENT ([facility], ) [place] body weight 196 [lb_av] 196 [lb_av] MEDEN T ([facility], ) Body weight 116.292 kg 116.292 kg MEDENT ([facility], ) Body surface area Derived from formula 2.44 m2 2.44 m2 MEDENT ([facility], ) Body temperature 97.7 [degF] 97.7 [degF] MEDENT ([facility]) Systolic blood pressure 150 mm[Hg] 150 mm[Hg] [facility] Diastolic blood pressure 100 mm[Hg] 100 mm[Hg] [facility] Heart rate 96 /min 96 /min [facility] Body weight 117.935 kg 117.935 kg [facility] Body mass index (BMI) [Ratio] 32.50 kg/m2 32.50 kg/m2 [facility] Oxygen saturation in Arterial blood by Pulse oximetry 98 % 98 % [facility] Diastolic blood pressure 80 mm[Hg] 80 mm[Hg] [facility] Heart rate 75 /min 75 /min [facility] Body height 190.5 cm 190.5 cm [facility] Body weight 117.482 kg 117.482 kg [facility] Body mass index (BMI) [Ratio] 32.37 kg/m2 32.37 kg/m2 [facility] Oxygen saturation in Arterial blood by Pulse oximetry 98 % 98 % [facility] Systolic blood pressure 140 mm[Hg] 140 mm[Hg] [facility] Body weight 255 [lb_av] 255 [lb_av] W1 ([facility]) Body height 74 [in_i] 74 [in_i] W1 ([facility]) Body mass index (BMI) [Ratio] 32.74 kg/m2 32.74 kg/m2 [facility] ([facility]) Heart rate 67 /min 67 /min W1 ([facility]) Respiratory rate 18 /min 18 /min eCW1 ([facility]) Body temperature 97.1 [degF] 97.1 [degF] eCW1 ( [facility]) Systolic blood pressure 128 mm[Hg] 128 mm[Hg] e CW1 ([facility]) Diastolic blood pressure 68 mm[Hg] 68 mm[Hg] eCW1 ([facility]) Systolic blood pressure 132 mm[Hg] 132 mm[Hg] [facility] Diastolic blood pressure 78 mm[Hg] 78 mm[Hg] [facility] Heart rate 78 /min 78 /min [facility] Body height 190.5 cm 190.5 cm [facility] Body weight 115.214 kg 115.214 kg [facility] Body mass index (BMI) [Ratio] 31.75 kg/m2 31.75 kg/m2 [facility] Oxygen saturation in Arterial blood by Pulse oximetry 97 % 97 % [facility] Body weight 253 [lb_av] 253 [lb_av] W1 ([facility]) Body height 74 [in_i] 74 [in_i] W1 ([facility]) Body mass index (BMI) [Ratio] 32.48 kg/m2 32.48 kg/m2 W1 ([facility]) Heart rate 85 /min 85 /min eCW1 ([facility]) Respiratory rate 18 /min 18 /min eCW1 ([facility]) Body temperature 97.0 [degF] 97.0 [degF] eCW1 ( [facility]) Systolic blood pressure 178 mm[Hg] 178 mm[Hg] e CW1 ([facility]) Diastolic blood pressure 130 mm[Hg] 130 mm[Hg] eCW1 ([facility]) Systolic blood pressure 145 mm[Hg] 145 mm[Hg] [facility] Diastolic blood pressure 86 mm[Hg] 86 mm[Hg] [facility] Heart rate 78 /min 78 /min [facility] Body height 190.5 cm 190.5 cm [facility] Body weight 115.214 kg 115.214 kg [facility] Body mass index (BMI) [Ratio] 31.75 kg/m2 31.75 kg/m2 [facility] Oxygen saturation in Arterial blood by Pulse oximetry 99 % 99 % [facility] Body temperature 97.1 [degF] 97.1 [degF] MEDENT ([facility] ) Body weight 261 [lb_av] 261 [lb_av] eCW1 ([facility]) Body height 74 [in_i] 74 [in_i] eCW1 ([facility]) Body mass index (BMI) [Ratio] 33.51 kg/m2 33.51 kg/m2 eCW1 ([facility]) Heart rate 86 /min 86 /min eCW1 ([facility]) Respiratory rate 20 /min 20 /min eCW1 ([facility]) Body temperature 96.4 [degF] 96.4 [degF] eCW1 ( [facility]) Systolic blood pressure 134 mm[Hg] 134 mm[Hg] e CW1 ([facility]) Diastolic blood pressure 84 mm[Hg] 84 mm[Hg] eCW1 ([facility]) Body weight 258.2 [lb_av] 258.2 [lb_av] eCW1 ([facility]) Body height 74 [in_i] 74 [in_i] eCW1 ([facility]) Body mass index (BMI) [Ratio] 33.15 kg/m2 33.15 kg/m2 eCW1 ([facility]) Heart rate 73 /min 73 /min eCW1 ([facility]) Respiratory rate 18 /min 18 /min eCW1 ([facility]) Body temperature 97.1 [degF] 97.1 [degF] eCW1 ( [facility]) Systolic blood pressure 142 mm[Hg] 142 mm[Hg] e CW1 ([facility]) Diastolic blood pressure 82 mm[Hg] 82 mm[Hg] eCW1 ([facility]) Body weight 261 [lb_av] 261 [lb_av] eCW1 ([facility]) Body height 74 [in_i] 74 [in_i] eCW1 ([facility]) Body mass index (BMI) [Ratio] 33.51 kg/m2 33.51 kg/m2 eCW1 ([facility]) Heart rate 80 /min 80 /min eCW1 ([facility]) Respiratory rate 19 /min 19 /min eCW1 ([facility]) Body temperature 96.0 [degF] 96.0 [degF] eCW1 ( [facility]) Systolic blood pressure 176 mm[Hg] 176 mm[Hg] e CW1 ([facility]) Diastolic blood pressure 108 mm[Hg] 108 mm[Hg] eCW1 ([facility]) Body weight 262.4 [lb_av] 262.4 [lb_av] eCW1 ([facility]) Body height 74 [in_i] 74 [in_i] eCW1 ([facility]) Body mass index (BMI) [Ratio] 33.69 kg/m2 33.69 kg/m2 eCW1 ([facility]) Heart rate 85 /min 85 /min eCW1 ([facility]) Respiratory rate 18 /min 18 /min eCW1 ([facility]) Body temperature 96.7 [degF] 96.7 [degF] eCW1 ( [facility]) Systolic blood pressure 144 mm[Hg] 144 mm[Hg] e CW1 ([facility]) Diastolic blood pressure 90 mm[Hg] 90 mm[Hg] eCW1 ([facility]) Patient Treatment Plan of Care Planned Activity Planned Date Details Description Data Source (s) Lisinopril 30 MG Oral Tablet 04/15/2021 12:00:00 AM EDT [facility] Hydrochlorothiazide 25 MG Oral Tablet 04/04/2021 12:00:00 AM EDT [facility] Aspirin 81 MG Delayed Release Oral Tablet 02/23/2021 12:00:00 AM ED T [facility] Lisinopril 20 MG Oral Tablet 02/23/2021 12:00:00 AM EDT [facility] Lisinopril 40 MG Oral Tablet 11/04/2020 12:00:00 AM EDT [facility] Rosuvastatin calcium 10 MG Oral Tablet 09/22/2020 12:00:00 AM EDT [facility] Docusate Sodium 50 MG / sennosides, [facility] 8.6 MG Oral Ta blet [SENOKOT-S] 09/05/2020 12:00:00 AM EDT eCW1 ([facility]) Docusate Sodium 50 MG / sennosides, [facility] 8.6 MG Oral Ta blet [SENOKOT-S] 09/05/2020 12:00:00 AM EDT eCW1 ([facility]) Docusate Sodium 50 MG / sennosides, [facility] 8.6 MG Oral Ta blet [SENOKOT-S] 09/05/2020 12:00:00 AM EDT eCW1 ([facility]) Rosuvastatin calcium 10 MG Oral Tablet 09/01/2020 12:00:00 AM EDT [facility] Cephalexin 500 MG Oral Capsule 08/11/2020 12:00:00 AM EST eCW1 ([facility]) Cephalexin 500 MG Oral Capsule 08/11/2020 12:00:00 AM EST eCW1 ([facility]) Cephalexin 500 MG Oral Capsule 08/11/2020 12:00:00 AM EST eCW1 ([facility]) Cephalexin 500 MG Oral Capsule 08/11/2020 12:00:00 AM EST eCW1 ([facility]) Cephalexin 500 MG Oral Capsule 08/11/2020 12:00:00 AM EST eCW1 ([facility]) Hydrochlorothiazide 25 MG Oral Tablet 08/07/2020 12:00:00 AM EST [facility] Rosuvastatin calcium 10 MG Oral Tablet 07/01/2020 12:00:00 AM EST [facility] Polyvinyl Alcohol 0.014 ML/ML Ophthalmic Solution 06/17/2020 12: 00:00 AM EST [facility] Lidocaine 5 % 06/12/2020 12:00:00 AM EST eCW1 ([facility]) Lidocaine 5 % 06/12/2020 12:00:00 AM EST eCW1 ([facility]) Lidocaine 5 % 06/12/2020 12:00:00 AM EST eCW1 ([facility]) Lidocaine 5 % 06/12/2020 12:00:00 AM EST eCW1 ([facility]) Rosuvastatin calcium 10 MG Oral Tablet 06/03/2020 12:00:00 AM EST [facility] 24 HR Diltiazem Hydrochloride 180 MG Extended Release Oral Capsule 05/22/2020 12:00:00 AM EST [facility] Lisinopril 40 MG Oral Tablet 05/22/2020 12:00:00 AM EST [facility] Lisinopril 30 MG Oral Tablet 05/13/2020 12:00:00 AM EST eCW1 ([facility]) 24 HR Diltiazem Hydrochloride 180 MG Extended Release Oral Capsule 05/07/2020 12:00:00 AM EST [facility] atorvastatin 40 MG Oral Tablet 05/01/2020 12:00:00 AM EST eCW1 ([facility]) atorvastatin 40 MG Oral Tablet 05/01/2020 12:00:00 AM EST eCW1 ([facility]) Lisinopril 20 MG Oral Tablet 05/01/2020 12:00:00 AM EST eCW1 ([facility]) atorvastatin 40 MG Oral Tablet 05/01/2020 12:00:00 AM EST eCW1 ([facility]) Lisinopril 20 MG Oral Tablet 05/01/2020 12:00:00 AM EST eCW1 ([facility]) Lisinopril 10 MG Oral Tablet 04/22/2020 12:00:00 AM EST [facility] Lisinopril 10 MG Oral Tablet 04/21/2020 12:00:00 AM EST eCW1 ([facility]) Isosorbide Dinitrate 30 MG Oral Tablet 04/21/2020 12:00:00 AM EST eCW1 ([facility]) Lisinopril 10 MG Oral Tablet 04/21/2020 12:00:00 AM EST eCW1 ([facility]) Isosorbide Dinitrate 30 MG Oral Tablet 04/21/2020 12:00:00 AM EST eCW1 ([facility]) Isosorbide Dinitrate 30 MG Oral Tablet 04/21/2020 12:00:00 AM EST eCW1 ([facility]) Isosorbide Dinitrate 30 MG Oral Tablet 04/21/2020 12:00:00 AM EST eCW1 ([facility]) Nitroglycerin 0.3 MG Sublingual Tablet 04/09/2020 12:00:00 AM EDT [facility] Aspirin 81 MG Delayed Release Oral Tablet 04/09/2020 12:00:00 AM ED T [facility] Hydrochlorothiazide 25 MG Oral Tablet 04/09/2020 12:00:00 AM EDT [facility] atorvastatin 40 MG Oral Tablet 04/08/2020 12:00:00 AM EDT [facility] Nitroglycerin 0.3 MG Sublingual Tablet 04/08/2020 12:00:00 AM EDT eCW1 ([facility]) Nitroglycerin 0.3 MG Sublingual Tablet 04/08/2020 12:00:00 AM EDT eCW1 ([facility]) Nitroglycerin 0.3 MG Sublingual Tablet 04/08/2020 12:00:00 AM EDT eCW1 ([facility]) Nitroglycerin 0.3 MG Sublingual Tablet 04/08/2020 12:00:00 AM EDT eCW1 ([facility]) Nitroglycerin 0.3 MG Sublingual Tablet 04/08/2020 12:00:00 AM EDT eCW1 ([facility]) pregabalin 150 MG Oral Capsule 04/03/2020 12:00:00 AM EDT [facility] meloxicam 15 MG Oral Tablet 04/03/2020 12:00:00 AM EDT [facility] Aspirin 81 MG Delayed Release Oral Tablet 04/03/2020 12:00:00 AM ED T eCW1 ([facility]) atorvastatin 80 MG Oral Tablet 04/03/2020 12:00:00 AM EDT eCW1 ([facility]) Aspirin 81 MG Delayed Release Oral Tablet 04/03/2020 12:00:00 AM ED T eCW1 ([facility]) Hydrochlorothiazide 25 MG Oral Tablet 04/03/2020 12:00:00 AM EDT eCW1 ([facility]) Aspirin 81 MG Delayed Release Oral Tablet 04/03/2020 12:00:00 AM ED T eCW1 ([facility]) atorvastatin 80 MG Oral Tablet 04/03/2020 12:00:00 AM EDT eCW1 ([facility]) Hydrochlorothiazide 25 MG Oral Tablet 04/03/2020 12:00:00 AM EDT eCW1 ([facility]) Aspirin 81 MG Delayed Release Oral Tablet 04/03/2020 12:00:00 AM ED T eCW1 ([facility]) atorvastatin 80 MG Oral Tablet 04/03/2020 12:00:00 AM EDT eCW1 ([facility]) Hydrochlorothiazide 25 MG Oral Tablet 04/03/2020 12:00:00 AM EDT eCW1 ([facility]) Aspirin 81 MG Delayed Release Oral Tablet 04/03/2020 12:00:00 AM ED T eCW1 ([facility]) atorvastatin 80 MG Oral Tablet 04/03/2020 12:00:00 AM EDT eCW1 ([facility]) Hydrochlorothiazide 25 MG Oral Tablet 04/03/2020 12:00:00 AM EDT eCW1 ([facility]) atorvastatin 80 MG Oral Tablet 04/03/2020 12:00:00 AM EDT eCW1 ([facility]) Clonidine Hydrochloride 0.1 MG Oral Tablet 04/03/2020 12:00:00 AM E DT eCW1 ([facility]) Hydrochlorothiazide 25 MG Oral Tablet 04/03/2020 12:00:00 AM EDT eCW1 ([facility]) Isosorbide Dinitrate 30 MG Oral Tablet 04/03/2020 12:00:00 AM EDT eCW1 ([facility]) Aspirin 81 MG Delayed Release Oral Tablet 04/03/2020 12:00:00 AM ED T eCW1 ([facility]) atorvastatin 80 MG Oral Tablet 04/03/2020 12:00:00 AM EDT eCW1 ([facility]) Clonidine Hydrochloride 0.1 MG Oral Tablet 04/03/2020 12:00:00 AM E DT eCW1 ([facility]) Hydrochlorothiazide 25 MG Oral Tablet 04/03/2020 12:00:00 AM EDT eCW1 ([facility]) Isosorbide Dinitrate 30 MG Oral Tablet 04/03/2020 12:00:00 AM EDT eCW1 ([facility]) Aspirin 81 MG Delayed Release Oral Tablet 04/03/2020 12:00:00 AM ED T eCW1 ([facility]) atorvastatin 80 MG Oral Tablet 04/03/2020 12:00:00 AM EDT eCW1 ([facility]) Clonidine Hydrochloride 0.1 MG Oral Tablet 04/03/2020 12:00:00 AM E DT eCW1 ([facility]) Hydrochlorothiazide 25 MG Oral Tablet 04/03/2020 12:00:00 AM EDT eCW1 ([facility]) Isosorbide Dinitrate 30 MG Oral Tablet 04/03/2020 12:00:00 AM EDT eCW1 ([facility]) Aspirin 81 MG Delayed Release Oral Tablet 04/03/2020 12:00:00 AM ED T eCW1 ([facility]) Aspirin 81 MG Delayed Release Oral Tablet 04/03/2020 12:00:00 AM ED T eCW1 ([facility]) Hydrochlorothiazide 25 MG Oral Tablet 04/03/2020 12:00:00 AM EDT eCW1 ([facility]) Aspirin 81 MG Delayed Release Oral Tablet 04/03/2020 12:00:00 AM ED T eCW1 ([facility]) Hydrochlorothiazide 25 MG Oral Tablet 04/03/2020 12:00:00 AM EDT eCW1 ([facility]) albuterol (PROVENTIL HFA;VENTOLIN HFA) 108 (90 Base) M CG/ACT inhaler 03/27/2020 12:00:00 AM EDT [facility] Albuterol Sulfate HFA 108 (90 Base) MCG/ACT 03/27/2020 12:00:00 AM EDT eCW1 ([facility]) Albuterol Sulfate HFA 108 (90 Base) MCG/ACT 03/27/2020 12:00:00 AM EDT eCW1 ([facility]) Albuterol Sulfate HFA 108 (90 Base) MCG/ACT 03/27/2020 12:00:00 AM EDT eCW1 ([facility]) Omeprazole 20 MG Delayed Release Oral Capsule 02/07/2020 12:00:00 A M EDT [facility] Lisinopril 20 MG Oral Tablet [facility] Diltiazem Hydrochloride 30 MG Oral Tablet [facility]
[2021-04-23 05:41] LABS: RSV AMPLIFICATION NEGATIVE (NEGATIVE)
[2021-04-23 07:20] VITALS: BP 176/90
[2021-04-23] MEDS ORDERED: LISI20TA33 PO (08:08)
[2021-04-23] MEDS ORDERED: HOME MED LIST COMPLETE! XX SCH (08:10)
[2021-04-23] MEDS ORDERED: OMEPRAZOLE 20 MG CAP PO SCH (09:00)
[2021-04-23] MEDS ORDERED: PHENAZOPYRIDINE 100 MG TAB PO SCH (09:00)
[2021-04-23] MEDS ORDERED: oxyBUTYnin 5 MG TAB PO SCH (09:00)
[2021-04-23] MEDS ORDERED: DOCUSATE SODIUM 100MG CAPSULE PO SCH (09:00)
[2021-04-23] MEDS ORDERED: ASPIRIN 81MG ENTERIC TABLET PO SCH (09:00)
[2021-04-23] MEDS ORDERED: OLOPATADINE 0.1% OPHTH SOL 5ML(PATANOL) OU SCH (09:00)
[2021-04-23 09:57] LABS: BASO % 0.5 % (0.0-1.0); EOS % 0.4 % (0.0-3.0); HEMATOCRIT 46.1 % (42.0-52.0); HEMOGLOBIN 16.4 g/dl (13.5-17.5); LYMPH # 1.2 10^3/uL (1.5-5.0); LYMPH % 20.9 % (24.0-44.0); MEAN CORPUSCULAR HEMOGLOBIN 29.8 pg (27.0-33.0); MEAN CORPUSCULAR HGB CONC 35.6 g/dl (32.0-36.5); MEAN CORPUSCULAR VOLUME 83.7 fl (80.0-96.0); MONO # 0.9 10^3/uL (0.0-0.8); MONO % 15.3 % (2.0-8.0); NEUTROPHILS # 3.5 10^3/uL (1.5-8.5); NEUTROPHILS % 62.7 % (36.0-66.0); PLATELET COUNT, AUTOMATED 140 10^3/uL (150-450); RED BLOOD COUNT 5.51 10^6/uL (4.30-6.10); WHITE BLOOD COUNT 5.6 10^3/uL (4.0-10.0)
--- NOTE | 2021-04-23 09:59 | SMCUROLCON ---
Urology Consultation General Date of Consultation 04/23/21 Reason For Consultation asked to see re pain secondary to stent and lynette History of Present Illness s/p left ureteroscopy with stone extraction and stent placement 04/22/21 pain on left since surgery presented to er and subsequently admitted ct reviewed - no unusual findings creatinine 2.17 = elevated covid testing positive Past Medical History Medical History htn, hld, cassandra, left renal stone, slight left ureteral stricture Surgical Hstory left ureteroscopy with stone extraction and stent placement 04/22/21 Family History Significant Family History: No pertinent family hx Social History * Smoker: non-smoker Alcohol: Denies Drugs: denies Medications Current Medications Current Medications Medications (Trade) Dose Ordered Sig/[place] Route PRN Reason Start Time Stop Time Status Last Admin Dose Admin Acetaminophen (Tylenol Tab) 650 mg Q4H PRN PO MILD PAIN or TEMP > 101 04/23/21 05:15 Al Hydrox/Mg Hydrox/Simethicone (Mylanta) 30 ml DAILY PRN PO DYSPEPSIA 04/23/21 05:15 Docusate Sodium (Colace) 100 mg BID PO 04/23/21 09:00 04/23/21 09:41 Home Med (Home Med List Complete!) ASDIRECTED XX 04/23/21 08:10 Magnesium Hydroxide (Milk Of Magnesia) 30 ml DAILY PRN PO CONSTIPATION 04/23/21 05:15 Morphine Sulfate (Morphine Sulfate Inj) 3 mg Q3HP PRN IV mod/severe pain 04/23/21 05:15 04/23/21 09:43 Olopatadine HCl (Patanol) 1 drop BID@09,17 OU 04/23/21 09:00 04/23/21 09:41 Ondansetron HCl (ZOFRAN INJection) 4 mg Q4HP PRN IV NAUSEA OR VOMITING 04/23/21 05:15 04/23/21 09:43 Sodium Chloride 1,000 ml @ 150 mls/hr Q6H40M IV 04/23/21 05:15 04/23/21 07:30 Allergies Allergies: Coded Allergies: tamsulosin (Verified Allergy, Severe, breathing difficulty, 12/29/18) amlodipine (Verified Allergy, Unknown, 04/21/21) diltiazem (Verified Allergy, Unknown, 04/21/21) metoprolol (Verified Allergy, Unknown, 04/21/21) Review of Systems General: Denies: Chills Constitutional: Reports: Other (light headedness) Eyes: Denies: Vision change ENT: Denies: Head Aches Skin: Denies: Rash Pulmonary: Denies: Cough Cardiovascular: Denies Chest Pain Gastrointestinal: Reports: Nausea Genitourinary: Denies: Retention Hematologic: Denies: Bruising Endocrine: Denies: Polydipsia Musculoskeletal: Denies: Neck Pain Neurological: Denies: Weakness Psych: Reports: Mood Normal Physical Examination General Exam: Alert, Cooperative, Mild Distress EYE EXAM: EOMI ENT EXAM: Atraumatic Neck Exam: Supple Chest Exam: Clear to auscultation Heart Exam: Rate Normal Abdomen Exam: Soft, Other (slightly tender on left) Extremity Exam: No: Cyanosis Skin Exam: Nl turgor and temperature Neuro Exam: Normal Speech Psych Exam: Mental status NL Vital Signs/I&O Vital Signs Date Time Temp Pulse Resp B/P (MAP) Pulse Ox O2 Delivery O2 Flow Rate FiO2 04/23/21 09:43 18 04/23/21 07:20 98.9 84 176/90 (118) 96 Room Air Laboratory Data 24H Labs Laboratory Tests 2 04/23/21 02:29: Immature Granulocyte % (Auto) 0.3, Neutrophils (%) (Auto) 69.6H, Lymphocytes (%) (Auto) 15.6L, Monocytes (%) (Auto) 13.1H, Eosinophils (%) (Auto) 0.8, Basophils (%) (Auto) 0.6, Neutrophils # (Auto) 4.3, Lymphocytes # (Auto) 1.0L, Monocytes # (Auto) 0.8, Eosinophils # (Auto) 0.1, Basophils # (Auto) 0.0, Nucleated Red Blood Cells % (auto) 0.0, Urine Color YELLOW, Urine Appearance CLOUDYH, Urine pH 6.0, Urine Specific [place] 1.010, Urine Protein 3+H, Urine Glucose (UA) NEGATIVE, Urine Ketones NEGATIVE, Urine Blood 3+H, Urine Nitrite NEGATIVE, Urine Bilirubin NEGATIVE, Urine Urobilinogen 0.2, Urine Leukocyte Esterase 1+H, Urine WBC (Auto) 42H, Urine RBC (Auto) TNTCH, Urine Hyaline Casts (Auto) 0, Urine Bacteria (Auto) NEGATIVE, Urine Squamous Epithelial Cells 0, Urine Sperm (Auto) , Anion Gap 6L, Glomerular Filtration Rate 43.2L, Calcium Level 8.5, Total Bili castañeda 0.4, Direct Bilirubin 0.1, Aspartate Amino Transf (AST/SGOT) 22, Alanine Aminotransferase (ALT/SGPT) 34, Alkaline Phosphatase 60, Total Creatine Kinase 239, Creatine Kinase MB < 1.0, Creatine Kinase MB Relative Index 0.42, Troponin I < 0.02, Total Protein 6.6, Albumin 3.1L, Albumin/Globulin Ratio 0.9, Lipase 227 04/23/21 04:53: Coronavirus (COVID-19)(PCR) POSITIVEA, Influenza Type A (RT-PCR) NEGATIVE, Influenza Type B (RT-PCR) NEGATIVE, Respiratory Syncytial Virus (PCR) NEGATIVE 04/23/21 09:39: CBC/BMP Laboratory Tests 04/23/21 02:29 Microbiology Microbiology 04/23/21 Urine Culture, Received Pending Assessment pain related to left ureteral stent I reviewed ct - unremarkable, stent in proper position, no peforation I will order oxybutynin and Pyridium to help diminish stent symptoms I suspect creatinine will simply come down with ivf thank you [phone] Plan morphine oxybutynin Pyridium ivf and follow creatinine thanks [phone] Silveira know of pt's admission JAYNA LIZ MD Apr 23, 2021 09:59
[2021-04-23 10:13] LABS: CALCIUM LEVEL 8.6 MG/DL (8.5-10.1); CREATININE FOR GFR 1.77 MG/DL (0.70-1.30); GLOMERULAR FILTRATION RATE 54.7 (>60); MAGNESIUM LEVEL 2.1 MG/DL (1.8-2.4); POTASSIUM SERUM 3.8 MEQ/L (3.5-5.1)
[2021-04-23] MEDS ORDERED: methylPREDNISolone 125MG 2ML VIAL IV PRN (10:20)
[2021-04-23] MEDS ORDERED: ALBUTEROL 90 MCG/ACT 8GM HFA INHALER INH PRN (10:20)
[2021-04-23] MEDS ORDERED: ALBUTEROL SULFATE 2.5 MG/0.5 ML INH NEB SOLN INH PRN (10:20)
[2021-04-23] MEDS ORDERED: BAMLANIVIMAB 700 MG, ETESEVIMAB 1,400 MG in NS 250 ML IV ONE (10:20)
[2021-04-23] MEDS ORDERED: diphenhydrAMINE 50MG/ML VIAL (J1200) IV PRN (10:20)
[2021-04-23] MEDS ORDERED: EPINEPHrine INJ 1 MG/ML 1ML AMP IM PRN (10:20)
--- NOTE | 2021-04-23 11:09 | ECGEPIP ---
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
[2021-04-23] MEDS ORDERED: CASIRIVIMAB (REGN10933) 600 MG, IMDEVIMAB (REGN10987) 600 MG in NS 250 ML IV ONE (13:00)
[2021-04-23] MEDS ORDERED: ACET1TAB55 PO (13:08)
[2021-04-23] MEDS ORDERED: PHEN1TAB73 PO (13:08)
[2021-04-23] MEDS ORDERED: OXYB5TAB10 PO (13:08)
[2021-04-23] MEDS ORDERED: TRAM50TA2 PO (13:08)
--- NOTE | 2021-04-23 16:34 | DS.PDOC ---
Discharge Summary General Date of Admission Apr 23, 2021 at 05:11 Date of Discharge 04/23/21 Discharge Summary PROCEDURES PERFORMED DURING STAY: [None]. ADMITTING DIAGNOSES: Ureteral stent pain JAVON COVID-19 htn, hld DISCHARGE DIAGNOSES: Ureteral stent pain JAVON COVID-19 htn, hld Conjunctivitis COMPLICATIONS/CHIEF COMPLAINT: Acute Kidney Injury. HISTORY OF PRESENT ILLNESS: This is a 40 y/o male with a pmh of hld, htn and cassandra who presents to our ed on 04/23 for evaluation of intractable left flank pain that began today. Of note, patient underwent cystoscopy with left sided ureteral stent placement and basket stone removal just yesterday 04/22 HOSPITAL COURSE: During the hospital stay the following issue addressed During the hospital stay patient was found to have acute kidney injury secondary to dehydration. Patient received IV fluid his kidney function improved. Urology team consulted patient they recommended to continue pain management, oxybutynin and Pyridium to help diminish stent symptoms. Also patient was found to have COVID-19 infection. Patient asymptomatic, he has good oxygen saturation on room air. Patient received monoclonal antibody infusion. DISCHARGE MEDICATIONS: Please see below. ALLERGIES: Please see below. PHYSICAL EXAMINATION ON DISCHARGE: VITAL SIGNS: Please see below. General Exam: Alert, Cooperative, Mild Distress EYE EXAM: EOMI ENT EXAM: Atraumatic Neck Exam: Supple Chest Exam: Clear to auscultation Heart Exam: Rate Normal Abdomen Exam: Soft, Other (slightly tender on left) Extremity Exam: No: Cyanosis Skin Exam: Nl turgor and temperature Neuro Exam: Normal Speech Psych Exam: Mental status NL LABORATORY DATA: Please see below. PROGNOSIS: Fair ACTIVITY: [As tolerated]. DIET: Cardiac DISPOSITION: 01 Home, Self-Care. DISCHARGE INSTRUCTIONS: Follow [place] rules ITEMS TO FOLLOWUP ON ON OUTPATIENT: Follow-up with urologist and PCP DISCHARGE CONDITION: [Stable]. TIME SPENT ON DISCHARGE: 40 minutes. Vital Signs/I&Os Vital Signs Date Time Temp Pulse Resp B/P (MAP) Pulse Ox O2 Delivery O2 Flow Rate FiO2 04/23/21 09:53 16 Room Air 04/23/21 07:20 98.9 84 176/90 (118) 96 Laboratory Data Labs 24H Laboratory Tests 2 04/23/21 02:29: Immature Granulocyte % (Auto) 0.3, Neutrophils (%) (Auto) 69.6H, Lymphocytes (%) (Auto) 15.6L, Monocytes (%) (Auto) 13.1H, Eosinophils (%) (Auto) 0.8, Basophils (%) (Auto) 0.6, Neutrophils # (Auto) 4.3, Lymphocytes # (Auto) 1.0L, Monocytes # (Auto) 0.8, Eosinophils # (Auto) 0.1, Basophils # (Auto) 0.0, Nucleated Red Blood Cells % (auto) 0.0, Urine Color YELLOW, Urine Appearance CLOUDYH, Urine pH 6.0, Urine Specific [place] 1.010, Urine Protein 3+H, Urine Glucose (UA) NEGATIVE, Urine Ketones NEGATIVE, Urine Blood 3+H, Urine Nitrite NEGATIVE, Urine Bilirubin NEGATIVE, Urine Urobilinogen 0.2, Urine Leukocyte Esterase 1+H, Urine WBC (Auto) 42H, Urine RBC (Auto) TNTCH, Urine Hyaline Casts (Auto) 0, Urine Bacteria (Auto) NEGATIVE, Urine Squamous Epithelial Cells 0, Urine Sperm (Auto) , Anion Gap 6L, Glomerular Filtration Rate 43.2L, Calcium Level 8.5, Total Bilirubin 0.4, Direct Bilirubin 0.1, Aspartate Amino Transf (AST/SGOT) 22, Alanine Aminotransferase (ALT/SGPT) 34, Alkaline Phosphatase 60, Total Creatine Kinase 239, Creatine Kinase MB < 1.0, Creatine Kinase MB Relative Index 0.42, Troponin I < 0.02, Total Protein 6.6, Albumin 3.1L, Albumin/Globulin Ratio 0.9, Lipase 227, Procalcitonin <0.05 04/23/21 04:53: Coronavirus (COVID-19)(PCR) POSITIVEA, Influenza Type A (RT-PCR) NEGATIVE, Influenza Type B (RT-PCR) NEGATIVE, Respiratory Syncytial Virus (PCR) NEGATIVE 04/23/21 09:39: Immature Granulocyte % (Auto) 0.2, Neutrophils (%) (Auto) 62.7, Lymphocytes (%) (Auto) 20.9L, Monocytes (%) (Auto) 15.3H, Eosinophils (%) (Auto) 0.4, Basophils (%) (Auto) 0.5, Neutrophils # (Auto) 3.5, Lymphocytes # (Auto) 1.2L, Monocytes # (Auto) 0.9H, Eosinophils # (Auto) 0.0, Basophils # (Auto) 0.0, Nucleated Red Blood Cells % (auto) 0.0, Anion Gap 3L, Glomerular Filtration Rate 54.7L, Calcium Level 8.6, Magnesium Level 2.1 CBC/BMP Laboratory Tests 04/23/21 02:29 04/23/21 09:39 Microbiology Microbiology 04/23/21 Urine Culture, Received Pending Discharge Medications Scheduled Aspirin (Aspirin EC) 81 Mg Tablet.dr, 81 MG PO DAILY, (Reported) Lisinopril (Lisinopril) 20 Mg Tablet, 20 MG PO DAILY, (Reported) Omeprazole (Omeprazole) 20 Mg Capsule.dr, 20 MG PO DAILY, (Reported) Oxybutynin Chloride (Oxybutynin Chloride) 5 Mg Tablet, 5 MG PO BID Phenazopyridine HCl (Phenazopyridine HCl) 100 Mg Tablet, 100 MG PO TID Rosuvastatin Calcium (Rosuvastatin Calcium) 10 Mg Tablet, 10 MG PO QHS, (Reported) Scheduled PRN Acetaminophen (Acetaminophen) 325 Mg Tablet, 650 MG PO Q4H PRN for MILD PAIN or TEMP > 101 Tramadol HCl (Tramadol HCl) 50 Mg Tablet, 1 TAB PO Q6HP PRN for pain Allergies Coded Allergies: tamsulosin (Verified Allergy, Severe, breathing difficulty, 12/29/18) amlodipine (Verified Allergy, Unknown, 04/21/21) diltiazem (Verified Allergy, Unknown, 04/21/21) metoprolol (Verified Allergy, Unknown, 04/21/21) JEANNE STEPHENSON DO Apr 23, 2021 16:33
[2021-04-23] MEDS ORDERED: ROSUVASTATIN 10 MG TAB (CRESTOR) PO SCH (21:00)
== END 2021-04-23 14:42 | disposition home or self-care (01) ==
LOC: M ED 01:52 → M ED INP 05:11 → ENRESERV 06:23 → M 4MAIN 07:23
PROVIDERS: ADMIT Family Medicine; ATTEND Family Medicine
DX: T83.84XA Pain due to genitourinary prosthetic devices, implants and grafts, initial encounter (principal); Y73.2 Prosthetic and other implants, materials and accessory gastroenterology and urology devices associated with adverse incidents; Z96.0 Presence of urogenital implants; N17.9 Acute kidney failure, unspecified; U07.1 COVID-19; Z92.22 Personal history of monoclonal drug therapy; I10 Essential (primary) hypertension; E78.5 Hyperlipidemia, unspecified; H10.9 Unspecified conjunctivitis; Z98.890 Other specified postprocedural states; R10.9 Unspecified abdominal pain; E86.0 Dehydration; G47.33 Obstructive sleep apnea (adult) (pediatric); Z79.899 Other long term (current) drug therapy; Z79.82 Long term (current) use of aspirin; Z88.8 Allergy status to other drugs, medicaments and biological substances
CPT/HCPCS: 36415; 74176; 80048; 80076; 81001; 82550; 82553; 83690; 83735; 84145; 85025; 87086; 87631; 93005; 93041; 96361; 96374; 96375; 96376; 99285; J2270; J2405

== ENCOUNTER 2021-07-27 09:50 | Inpatient (IN) | payer OTHER ==
[~2021-07-27] VITALS: Ht 190.5 cm; Wt 113.4 kg
[~2021-07-27 09:50] MED LIST changes: +ACET1TAB55 PO; +OMEP-173 PO; -OMEP-218 PO; +OXYB5TAB10 PO; +PHEN1TAB73 PO
[2021-07-27] MEDS ORDERED: ISOVUE-370 76% 100ML VIAL As Ordered ONE (10:08)
[2021-07-27 10:53] LABS: BASO % 0.6 % (0.0-1.0); EOS # 0.3 10^3/uL (0.0-0.5); EOS % 5.8 % (0.0-3.0); HEMATOCRIT 45.3 % (42.0-52.0); HEMOGLOBIN 16.2 g/dl (13.5-17.5); LYMPH # 1.7 10^3/uL (1.5-5.0); LYMPH % 34.6 % (24.0-44.0); MEAN CORPUSCULAR HEMOGLOBIN 29.7 pg (27.0-33.0); MEAN CORPUSCULAR HGB CONC 35.8 g/dl (32.0-36.5); MONO # 0.6 10^3/uL (0.0-0.8); NEUTROPHILS # 2.2 10^3/uL (1.5-8.5); NEUTROPHILS % 45.8 % (36.0-66.0); PLATELET COUNT, AUTOMATED 144 10^3/uL (150-450); RED BLOOD COUNT 5.46 10^6/uL (4.30-6.10); WHITE BLOOD COUNT 4.9 10^3/uL (4.0-10.0)
[2021-07-27] MEDS ORDERED: hydrALAZINE 20MG/ML 1ML VIAL (J0360 PER 20MG) IV ONE ×2 (10:55→11:20)
[2021-07-27 11:09] LABS: INR 1.06; PROTHROMBIN TIME 14.2 SECONDS (12.7-14.5)
[2021-07-27 11:10] LABS: PARTIAL THROMBOPLASTIN TIME 29.2 SECONDS (25.9-37.0)
[2021-07-27 11:13] LABS: ERYTHROCYTE SEDIMENTATION RATE 4 mm/hr (0-15)
[2021-07-27] MEDS ORDERED: LOSA25TA13 PO (11:20)
[2021-07-27 11:24] LABS: CK-MB VALUE MASS 1.6 NG/ML (<3.6); MB/CK RELATIVE INDEX 0.58 (< OR =4)
[2021-07-27 11:33] LABS: RSV AMPLIFICATION NEGATIVE (NEGATIVE)
[2021-07-27] MEDS ORDERED: LABETALOL 100MG/20ML VIAL IV PRN (11:55)
[2021-07-27] MEDS ORDERED: LABETALOL 100MG/20ML VIAL IV STA (12:30)
[2021-07-27] MEDS ORDERED: ACETAMINOPHEN 325 MG TAB PO ONE (12:35)
[2021-07-27] MEDS ORDERED: KETOROLAC 30 MG/ML 1ML VIAL IV ONE ×2 (12:35→15:40)
[2021-07-27] MEDS ORDERED: NAPR-885 PO (13:01)
[2021-07-27] MEDS ORDERED: CYCL5TAB PO (13:01)
[2021-07-27] MEDS ORDERED: HOME MED LIST COMPLETE! XX SCH (13:05)
[2021-07-27 13:44] LABS: BLOOD UREA NITROGEN 13 MG/DL (7-18); CARBON DIOXIDE LEVEL 32 MEQ/L (21-32); CHLORIDE LEVEL 103 MEQ/L (98-107); CREATININE FOR GFR 1.26 MG/DL (0.70-1.30); GLOMERULAR FILTRATION RATE > 60.0 (>60); GLUCOSE, FASTING 109 MG/DL (70-100); MAGNESIUM LEVEL 2.2 MG/DL (1.8-2.4); SODIUM LEVEL 141 MEQ/L (136-145)
[2021-07-27] MEDS ORDERED: LOSARTAN 50MG TABLET PO ONE (14:45)
[2021-07-27 14:49] VITALS: BP 183/104
[2021-07-27] MEDS ORDERED: METOCLOPRAMIDE INJ 10MG/2ML VIAL (J2765 PER 1) IV ONE (15:40)
[2021-07-27] MEDS ORDERED: diphenhydrAMINE 50MG/ML VIAL (J1200) IV ONE (15:40)
[2021-07-27] MEDS: **hydrALAZINE HCL** 25 MG TAB PO SCH (18:00)
[2021-07-27] MEDS: LABETALOL 100MG TAB PO SCH (19:22)
[2021-07-27] MEDS ORDERED: ROSUVASTATIN 10 MG TAB (CRESTOR) PO SCH (21:00)
[2021-07-27] MEDS ORDERED: LOSARTAN 50MG TABLET PO SCH (21:00)
[2021-07-28] MEDS: FIORICET TAB PO PRN ×2 (04:06→10:45)
[2021-07-28 06:27] VITALS: BP 168/94
[2021-07-28] MEDS: **hydrALAZINE HCL** 25 MG TAB PO SCH ×3 (06:27→12:22)
[2021-07-28] MEDS: LABETALOL 100MG TAB PO SCH (08:50)
[2021-07-28] MEDS ORDERED: ACET-897 PO (12:04)
[2021-07-28] MEDS ORDERED: COZA50TA PO (12:04)
[2021-07-28] MEDS ORDERED: LABE20TAB PO (12:04)
[2021-07-28] MEDS ORDERED: HYDR25TA PO (12:04)
[2021-07-28 12:13] LABS: BASO % 0.6 % (0.0-1.0); EOS # 0.3 10^3/uL (0.0-0.5); EOS % 6.1 % (0.0-3.0); HEMATOCRIT 44.4 % (42.0-52.0); HEMOGLOBIN 15.8 g/dl (13.5-17.5); LYMPH # 1.7 10^3/uL (1.5-5.0); LYMPH % 34.2 % (24.0-44.0); MEAN CORPUSCULAR HEMOGLOBIN 29.3 pg (27.0-33.0); MEAN CORPUSCULAR HGB CONC 35.6 g/dl (32.0-36.5); MEAN CORPUSCULAR VOLUME 82.2 fl (80.0-96.0); MONO # 0.5 10^3/uL (0.0-0.8); MONO % 10.5 % (2.0-8.0); NEUTROPHILS # 2.4 10^3/uL (1.5-8.5); NEUTROPHILS % 48.4 % (36.0-66.0); PLATELET COUNT, AUTOMATED 148 10^3/uL (150-450); WHITE BLOOD COUNT 4.9 10^3/uL (4.0-10.0)
[2021-07-28 12:34] LABS: BLOOD UREA NITROGEN 16 MG/DL (7-18); CALCIUM LEVEL 9.4 MG/DL (8.5-10.1); CARBON DIOXIDE LEVEL 28 MEQ/L (21-32); CHLORIDE LEVEL 105 MEQ/L (98-107); CREATININE FOR GFR 1.46 MG/DL (0.70-1.30); GLOMERULAR FILTRATION RATE > 60.0 (>60); GLUCOSE, FASTING 114 MG/DL (70-100); MAGNESIUM LEVEL 2.4 MG/DL (1.8-2.4); POTASSIUM SERUM 3.3 MEQ/L (3.5-5.1); SODIUM LEVEL 139 MEQ/L (136-145)
[2021-07-28] MEDS ORDERED: POTASSIUM CHLORIDE 10MEQ SR TABLET PO ONE (12:55)
[2021-07-28 13:28] VITALS: BP 142/69
== END 2021-07-28 13:54 | disposition home or self-care (01) | DRG 199 ==
LOC: M ED 09:50 → M ED INP 12:17
PROVIDERS: ADMIT Internal Medicine Nephrology; ATTEND Family Medicine
DX: I16.0 Hypertensive urgency (principal); E78.5 Hyperlipidemia, unspecified; G43.909 Migraine, unspecified, not intractable, without status migrainosus; I10 Essential (primary) hypertension; Z87.442 Personal history of urinary calculi; Z20.822 Contact with and (suspected) exposure to COVID-19; Z79.82 Long term (current) use of aspirin; Z79.899 Other long term (current) drug therapy; Z88.8 Allergy status to other drugs, medicaments and biological substances

== ENCOUNTER → 2021-07-29 | Outpatient (CLI) | payer OTHER ==
[~2021-07-29] MED LIST changes: +ACET-897 PO; +COZA50TA PO; +CYCL5TAB PO; +HYDR25TA PO; +LABE20TAB PO; +LOSA25TA13 PO
== END ==
LOC: M LAB 08:53
DX: R76.11 Nonspecific reaction to tuberculin skin test without active tuberculosis (principal)

== ENCOUNTER → 2021-08-24 | Outpatient (CLI) | payer OTHER | LOC: M LAB 16:49 | PROVIDERS: ATTEND Student in an Organized Health Care Education/Training Program | DX: I10 Essential (primary) hypertension (principal) ==

== ENCOUNTER → 2021-10-14 | Outpatient (CLI) | payer OTHER | LOC: M PLALAB 12:47 → M PLAIMG 12:47 | PROVIDERS: ATTEND Urology | DX: N20.0 Calculus of kidney (principal) ==

== ENCOUNTER → 2021-12-08 | Outpatient (CLI) | payer OTHER ==
[2021-12-08 15:57] LABS: BLOOD UREA NITROGEN 16 MG/DL (7-18); CALCIUM LEVEL 9.8 MG/DL (8.5-10.1); CARBON DIOXIDE LEVEL 31 MEQ/L (21-32); CHLORIDE LEVEL 106 MEQ/L (98-107); CREATININE FOR GFR 1.49 MG/DL (0.70-1.30); GLOMERULAR FILTRATION RATE > 60.0 (>60); GLUCOSE, FASTING 114 MG/DL (70-100); POTASSIUM SERUM 3.4 MEQ/L (3.5-5.1); SODIUM LEVEL 141 MEQ/L (136-145)
== END ==
LOC: M LAB 14:25
PROVIDERS: ATTEND Student in an Organized Health Care Education/Training Program
DX: I10 Essential (primary) hypertension (principal)

== ENCOUNTER → 2022-03-22 | Outpatient (CLI) | payer OTHER ==
[2022-03-22 14:33] LABS: APPEARANCE, URINE MANUAL CLEAR (CLEAR); COLOR, URINE MANUAL YELLOW (YELLOW)
[2022-03-22 14:36] LABS: BILIRUBIN, URINE MANUAL NEGATIVE (NEGATIVE); BLOOD URINE MANUAL POSITIVE (NEGATIVE); GLUCOSE, URINE (UA) MANUAL NEGATIVE (NEGATIVE); KETONE, URINE MANUAL NEGATIVE (NEGATIVE); LEUKOCYTE ESTERASE, URINE MAN NEGATIVE (NEGATIVE); NITRITE, URINE MANUAL NEGATIVE (NEGATIVE); PROTEIN, URINE MANUAL 3+ mg/dL (NEGATIVE); UROBILINOGEN, URINE MANUAL NORMAL (NORMAL)
[2022-03-22 15:05] LABS: RBC, URINE 20-30 /hpf (0-3)
[2022-03-22 15:06] LABS: BACTERIA, URINE SMALL AMOUNT; HYALINE CAST, URINE NONE SEEN /lpf (0-1); SQUAMOUS EPITHELIAL CELL URINE SMALL AMOUNT /hpf (SMALL AMT)
[2022-03-22 15:07] LABS: ALBUMIN 3.4 GM/DL (3.2-5.2); ALT/SGPT 51 U/L (12-78); BILIRUBIN,TOTAL 0.3 MG/DL (0.2-1.0); BLOOD UREA NITROGEN 15 MG/DL (7-18); CALCIUM LEVEL 9.4 MG/DL (8.5-10.1); CARBON DIOXIDE LEVEL 33 MEQ/L (21-32); CHLORIDE LEVEL 104 MEQ/L (98-107); CREATININE FOR GFR 1.44 MG/DL (0.70-1.30); GLOMERULAR FILTRATION RATE > 60.0 (>60); GLUCOSE, FASTING 90 MG/DL (70-100); SODIUM LEVEL 140 MEQ/L (136-145); TOTAL PROTEIN 7.3 GM/DL (6.4-8.2)
== END ==
LOC: M LAB 11:55 → M RAD 11:55
PROVIDERS: ATTEND Urology
DX: I10 Essential (primary) hypertension (principal)

== ENCOUNTER → 2022-04-01 | Outpatient (CLI) | payer OTHER | LOC: M RAD 08:23 | PROVIDERS: ATTEND Urology | DX: N20.0 Calculus of kidney (principal) ==

== ENCOUNTER → 2022-06-02 | Outpatient (REF) | payer OTHER | LOC: M SFHCPLAZ 12:45 | PROVIDERS: ATTEND Student in an Organized Health Care Education/Training Program | DX: L02.215 Cutaneous abscess of perineum (principal) ==

== ENCOUNTER 2022-06-15 23:30 | Emergency (ER) | payer OTHER ==
[~2022-06-15] VITALS: Ht 190.5 cm; Wt 119.0 kg
[2022-06-16 01:13] LABS: BASO % 0.5 % (0.0-1.0); EOS # 0.3 10^3/uL (0.0-0.5); EOS % 3.2 % (0.0-3.0); HEMATOCRIT 45.8 % (42.0-52.0); HEMOGLOBIN 16.3 g/dl (13.5-17.5); LYMPH # 2.9 10^3/uL (1.5-5.0); LYMPH % 37.8 % (24.0-44.0); MEAN CORPUSCULAR HEMOGLOBIN 29.1 pg (27.0-33.0); MEAN CORPUSCULAR HGB CONC 35.6 g/dl (32.0-36.5); MEAN CORPUSCULAR VOLUME 81.6 fl (80.0-96.0); MONO # 0.6 10^3/uL (0.0-0.8); MONO % 7.3 % (2.0-8.0); NEUTROPHILS % 51.1 % (36.0-66.0); PLATELET COUNT, AUTOMATED 167 10^3/uL (150-450); RED BLOOD COUNT 5.61 10^6/uL (4.30-6.10); WHITE BLOOD COUNT 7.8 10^3/uL (4.0-10.0)
[2022-06-16 01:26] LABS: LIPASE 38 U/L (12-53)
[2022-06-16 01:27] LABS: AMYLASE 115 U/L (30-118)
[2022-06-16 01:28] LABS: ALBUMIN 3.5 G/DL (3.2-5.2); ALKALINE PHOSPHATASE 69 U/L (46-116); ALT/SGPT 32 U/L (7.0-40); AST/SGOT 28 U/L (<34); BILIRUBIN,DIRECT < 0.1 MG/DL (<0.4); BILIRUBIN,TOTAL 0.4 MG/DL (0.3-1.2); TOTAL PROTEIN 7.3 G/DL (5.7-8.2)
[2022-06-16 01:37] LABS: CPK CREATINE PHOSPHOKINASE 274 U/L (46-171); MB/CK RELATIVE INDEX 0.36 (< OR =4)
[2022-06-16] MEDS ORDERED: NS 1,000 ML IV ONE (07:50)
[2022-06-16] MEDS ORDERED: GI COCKTAIL 50ML BTL(HYOSCYAMINE/MAALOX/LIDOCAINE VISCOUS)(1:3:1) PO ONE (07:50)
[2022-06-16] MEDS ORDERED: ASPIRIN 81MG CHEW TABLET PO ONE (08:40)
[2022-06-16 08:42] LABS: BLOOD UREA NITROGEN 18 MG/DL (9-23); CALCIUM LEVEL 9.2 MG/DL (8.5-10.1); CARBON DIOXIDE LEVEL 28 MMOL/L (20-31); CHLORIDE LEVEL 102 MMOL/L (98-107); CREATININE FOR GFR 1.51 MG/DL (0.70-1.30); GLOMERULAR FILTRATION RATE > 60.0 (>60); GLUCOSE, FASTING 96 MG/DL (60-100); POTASSIUM SERUM 3.8 MMOL/L (3.5-5.1); SODIUM LEVEL 141 MMOL/L (136-145)
[2022-06-16] MEDS ORDERED: NITROGLYCERIN 2% OINT 1 GM *U/D* PKT TOP ONE (08:50)
[2022-06-16 08:54] LABS: CK-MB VALUE MASS < 1.0 NG/ML (<3.6); CPK CREATINE PHOSPHOKINASE 223 U/L (46-171); MB/CK RELATIVE INDEX 0.44 (< OR =4)
[2022-06-16 09:17] VITALS: BP 172/98
[2022-06-16 09:17] LABS: FREE T4 1.12 NG/DL (0.89-1.76); THYROID STIMULATING HORMONE 1.663 uIU/ML (0.55-4.78)
[2022-06-16] MEDS ORDERED: ISOVUE-370 76% 100ML VIAL As Ordered ONE (09:56)
[2022-06-16] MEDS ORDERED: MORPHINE 4 MG/ML 1ML VIAL IV ONE (12:35)
[2022-06-16 15:51] LABS: RSV AMPLIFICATION NEGATIVE (NEGATIVE)
[2022-06-16] MEDS ORDERED: LOSA50TA28 PO (15:52)
[2022-06-16] MEDS ORDERED: HOME MED LIST COMPLETE! XX SCH (15:55)
[2022-06-16 16:07] LABS: CK-MB VALUE MASS < 1.0 NG/ML (<3.6)
[2022-06-16 16:20] LABS: CPK CREATINE PHOSPHOKINASE 219 U/L (46-171); MB/CK RELATIVE INDEX 0.45 (< OR =4)
[2022-06-16] MEDS ORDERED: AMLO2.5T3 PO (17:02)
[2022-06-16 18:30] VITALS: BP 133/82
== END 2022-06-16 19:04 | disposition home or self-care (01) ==
LOC: M ED 23:30
DX: R94.31 Abnormal electrocardiogram [ECG] [EKG] (principal); M94.0 Chondrocostal junction syndrome [Tietze]; R74.8 Abnormal levels of other serum enzymes; R07.9 Chest pain, unspecified; R91.8 Other nonspecific abnormal finding of lung field; N20.0 Calculus of kidney; I12.9 Hypertensive chronic kidney disease with stage 1 through stage 4 chronic kidney disease, or unspecified chronic kidney disease; K21.9 Gastro-esophageal reflux disease without esophagitis; E78.5 Hyperlipidemia, unspecified; G47.33 Obstructive sleep apnea (adult) (pediatric); N18.9 Chronic kidney disease, unspecified; F41.9 Anxiety disorder, unspecified; M54.9 Dorsalgia, unspecified; G89.29 Other chronic pain; Z87.442 Personal history of urinary calculi; Z79.899 Other long term (current) drug therapy; Z79.82 Long term (current) use of aspirin; Z88.6 Allergy status to analgesic agent; Z88.8 Allergy status to other drugs, medicaments and biological substances

== ENCOUNTER → 2022-06-18 | Outpatient (CLI) | payer OTHER ==
[~2022-06-18] MED LIST changes: +AMLO2.5T3 PO; +LOSA50TA28 PO
== END ==
LOC: M PLARAD 07:37
PROVIDERS: ATTEND Physician Assistant
DX: M54.2 Cervicalgia (principal)

== ENCOUNTER → 2022-07-06 | Outpatient (CLI) | payer OTHER | LOC: M LAB 13:48 | PROVIDERS: ATTEND Student in an Organized Health Care Education/Training Program | DX: Z11.1 Encounter for screening for respiratory tuberculosis (principal); I10 Essential (primary) hypertension ==

== ENCOUNTER → 2022-09-06 | Outpatient (CLI) | payer OTHER | LOC: M RAD 08:49 | PROVIDERS: ATTEND Student in an Organized Health Care Education/Training Program | DX: I10 Essential (primary) hypertension (principal) ==

== ENCOUNTER 2023-03-20 06:47 | Emergency (ER) | payer OTHER ==
[~2023-03-20] VITALS: Ht 190.5 cm; Wt 123.8 kg
[~2023-03-20 06:47] MED LIST changes: -COZA50TA PO; +LOSA-528 PO
[2023-03-20] MEDS ORDERED: PANT40TA29 (07:09)
[2023-03-20 07:51] LABS: VENOUS BASE EXCESS -0.7 (-2.0-2.0); VENOUS HCO3 22.3 MMOL/L (23.0-27.0); VENOUS O2 SATURATION 98.8 % (60.0-80.0); VENOUS PARTIAL PRESSURE O2 173.2 mmHg (30.0-50.0); VENOUS PH 7.448 UNITS (7.330-7.430); VENOUS STANDARD HCO3 23.9 MMOL/L; VENOUS TOTAL CO2 23.3 MMOL/L (24.0-28.0)
[2023-03-20 08:01] LABS: BASO % 0.8 % (0.0-1.0); EOS # 0.2 10^3/uL (0.0-0.5); EOS % 4.6 % (0.0-3.0); HEMOGLOBIN 16.5 g/dl (13.5-17.5); LYMPH # 1.9 10^3/uL (1.5-5.0); LYMPH % 38.9 % (24.0-44.0); MEAN CORPUSCULAR HEMOGLOBIN 28.8 pg (27.0-33.0); MEAN CORPUSCULAR HGB CONC 35.1 g/dl (32.0-36.5); MONO # 0.4 10^3/uL (0.0-0.8); MONO % 7.7 % (2.0-8.0); NEUTROPHILS # 2.3 10^3/uL (1.5-8.5); NEUTROPHILS % 47.8 % (36.0-66.0); PLATELET COUNT, AUTOMATED 150 10^3/uL (150-450); RED BLOOD COUNT 5.73 10^6/uL (4.30-6.10); WHITE BLOOD COUNT 4.8 10^3/uL (4.0-10.0)
[2023-03-20] MEDS ORDERED: MORPHINE 2 MG/ML 1ML VIAL IV ONE (08:05)
[2023-03-20] MEDS ORDERED: IPRATROPIUM 0.5MG/ALBUTEROL 2.5MG INH SOL UD 3ML (DUONEB) NEB ONE (08:05)
[2023-03-20 08:26] LABS: INR 1.04; PROTHROMBIN TIME 13.3 SECONDS (12.5-14.5)
[2023-03-20 08:29] LABS: CK-MB VALUE MASS 1.5 NG/ML (<3.6)
[2023-03-20 08:32] LABS: ALBUMIN 3.5 G/DL (3.2-5.2); ALKALINE PHOSPHATASE 56 U/L (46-116); ALT/SGPT 35 U/L (7.0-40); AST/SGOT 27 U/L (<34); BILIRUBIN,DIRECT 0.2 MG/DL (<0.4); BILIRUBIN,TOTAL 0.7 MG/DL (0.3-1.2); BLOOD UREA NITROGEN 13 MG/DL (9-23); CALCIUM LEVEL 9.2 MG/DL (8.5-10.1); CARBON DIOXIDE LEVEL 25 MMOL/L (20-31); CHLORIDE LEVEL 106 MMOL/L (98-107); CREATININE FOR GFR 1.21 MG/DL (0.70-1.30); GLOMERULAR FILTRATION RATE > 60.0 (>60); GLUCOSE, FASTING 110 MG/DL (60-100); POTASSIUM SERUM 3.7 MMOL/L (3.5-5.1); SODIUM LEVEL 138 MMOL/L (136-145); TOTAL PROTEIN 7.1 G/DL (5.7-8.2)
[2023-03-20 08:33] LABS: THYROID STIMULATING HORMONE 2.668 uIU/ML (0.55-4.78); THYROXINE (T4) 8.3 UG/DL (4.5-10.9)
[2023-03-20 08:47] LABS: CPK CREATINE PHOSPHOKINASE 235 U/L (46-171); MB/CK RELATIVE INDEX 0.63 (< OR =4)
[2023-03-20] MEDS ORDERED: ISOVUE-370 76% 100ML VIAL As Ordered ONE (08:58)
[2023-03-20] MEDS ORDERED: methylPREDNISolone 125MG 2ML VIAL IV ONE (10:30)
[2023-03-20 10:33] LABS: CK-MB VALUE MASS 1.4 NG/ML (<3.6)
[2023-03-20 10:34] LABS: MB/CK RELATIVE INDEX 0.64 (< OR =4)
[2023-03-20] MEDS ORDERED: PRED20TA PO (11:30)
[2023-03-20] MEDS ORDERED: HYDR-3490 PO (11:30)
[2023-03-20] MEDS ORDERED: ALBU6.7H6 INH (11:30)
[2023-03-20 11:51] VITALS: BP 156/86; TEMP 97.8; O2SAT 96
[2023-03-20 11:55] LABS: PROCALCITONIN <0.04 ng/ml
== END 2023-03-20 12:00 | disposition home or self-care (01) ==
LOC: M ED 06:47
DX: I10 Essential (primary) hypertension (principal); R07.89 Other chest pain; R06.02 Shortness of breath; Z87.442 Personal history of urinary calculi; Z79.82 Long term (current) use of aspirin; Z79.899 Other long term (current) drug therapy; Z88.6 Allergy status to analgesic agent; Z88.8 Allergy status to other drugs, medicaments and biological substances
CPT/HCPCS: 71045; 71275; 74177; 80048; 80076; 82550; 82553; 82803; 83605; 83690; 83880; 84145; 84436; 84443; 85025; 85610; 87040; 87486; 87581; 87633; 87798; 93005; 93041; 94640; 94760; 96374; 96375; 99285; J2930; Q9967

== ENCOUNTER → 2023-04-26 | Outpatient (CLI) | payer BC, OTHER ==
[~2023-04-26] MED LIST changes: +ALBU6.7H6 INH; -OXYB5TAB10 PO; +OXYB5TAB11 PO; +PANT40TA29
[2023-04-26 17:09] LABS: BLOOD UREA NITROGEN 17 MG/DL (9-23); CALCIUM LEVEL 9.1 MG/DL (8.5-10.1); CARBON DIOXIDE LEVEL 30 MMOL/L (20-31); CHLORIDE LEVEL 105 MMOL/L (98-107); CREATININE FOR GFR 1.43 MG/DL (0.70-1.30); GLOMERULAR FILTRATION RATE > 60.0 (>60); GLUCOSE, FASTING 123 MG/DL (60-100); POTASSIUM SERUM 3.4 MMOL/L (3.5-5.1); SODIUM LEVEL 140 MMOL/L (136-145)
== END ==
LOC: M LAB 16:10
PROVIDERS: ATTEND Nurse Practitioner Family
DX: I10 Essential (primary) hypertension (principal)

== ENCOUNTER → 2023-07-30 | Outpatient (CLI) | payer BC, OTHER ==
[~2023-07-30] MED LIST changes: -HYDR25TA PO; +HYDR25TA88 PO; -OXYB5TAB11 PO; +OXYB5TAB14 PO
== END ==
LOC: M RAD 08:04
PROVIDERS: ATTEND Student in an Organized Health Care Education/Training Program
DX: R14.0 Abdominal distension (gaseous) (principal)

== ENCOUNTER 2023-08-09 15:39 | Emergency (ER) | payer BC, OTHER ==
[~2023-08-09] VITALS: Ht 190.5 cm; Wt 127.4 kg
[2023-08-09 18:40] LABS: BASO % 0.7 % (0.0-1.0); EOS # 0.2 10^3/uL (0.0-0.5); EOS % 2.6 % (0.0-3.0); HEMATOCRIT 43.2 % (42.0-52.0); HEMOGLOBIN 15.6 g/dl (13.5-17.5); LYMPH # 2.5 10^3/uL (1.5-5.0); LYMPH % 41.2 % (24.0-44.0); MEAN CORPUSCULAR HEMOGLOBIN 30.2 pg (27.0-33.0); MEAN CORPUSCULAR HGB CONC 36.1 g/dl (32.0-36.5); MEAN CORPUSCULAR VOLUME 83.6 fl (80.0-96.0); MONO # 0.5 10^3/uL (0.0-0.8); MONO % 7.7 % (2.0-8.0); NEUTROPHILS # 2.9 10^3/uL (1.5-8.5); NEUTROPHILS % 47.8 % (36.0-66.0); PLATELET COUNT, AUTOMATED 139 10^3/uL (150-450); RED BLOOD COUNT 5.17 10^6/uL (4.30-6.10); WHITE BLOOD COUNT 6.1 10^3/uL (4.0-10.0)
[2023-08-09 19:04] LABS: ALBUMIN 3.2 G/DL (3.2-5.2); BILIRUBIN,DIRECT 0.1 MG/DL (<0.4); BILIRUBIN,TOTAL 0.4 MG/DL (0.3-1.2); CALCIUM LEVEL 9.3 MG/DL (8.5-10.1); CREATININE FOR GFR 1.72 MG/DL (0.70-1.30); GLOMERULAR FILTRATION RATE 55.8 (>60); POTASSIUM SERUM 3.5 MMOL/L (3.5-5.1); TOTAL PROTEIN 6.5 G/DL (5.7-8.2)
[2023-08-09] MEDS: NS 1,000 ML IV ONE (20:14)
[2023-08-09] MEDS: ACETAMINOPHEN *IV* 1,000 MG in IV 1 EA IV ONE (20:15)
[2023-08-09] MEDS ORDERED: MIRA3350 PO (21:45)
[2023-08-09] MEDS ORDERED: COLA100C5 PO (21:45)
[2023-08-09 22:03] VITALS: BP 138/98; TEMP 98; O2SAT 99
== END 2023-08-09 22:06 | disposition home or self-care (01) ==
LOC: M ED 15:39
DX: K59.00 Constipation, unspecified (principal); N18.9 Chronic kidney disease, unspecified; I10 Essential (primary) hypertension; Z88.8 Allergy status to other drugs, medicaments and biological substances; Z79.899 Other long term (current) drug therapy; Z79.82 Long term (current) use of aspirin; Z79.811 Long term (current) use of aromatase inhibitors; Z79.52 Long term (current) use of systemic steroids
CPT/HCPCS: 74176; 80048; 80076; 81001; 83690; 85025; 96365; 96366; 99284; J0131

== ENCOUNTER → 2023-08-18 | Outpatient (CLI) | payer BC ==
[~2023-08-18] MED LIST changes: +COLA100C5 PO; +MIRA3350 PO
[2023-08-18 18:54] LABS: TOTAL PROTEIN,RANDOM URINE 171.5 MG/DL (0.0-14.0)
== END ==
LOC: M LAB 16:32
PROVIDERS: ATTEND Student in an Organized Health Care Education/Training Program
DX: R80.9 Proteinuria, unspecified (principal)

== ENCOUNTER 2023-09-09 06:17 | Emergency (ER) | payer BC, OTHER ==
[~2023-09-09] VITALS: Ht 190.5 cm; Wt 122.5 kg
[2023-09-09] MEDS: ACETAMINOPHEN 500 MG TAB PO ONE (07:35)
[2023-09-09] MEDS: KETOROLAC 60MG 2ML VIAL IM ONE (08:11)
[2023-09-09] MEDS ORDERED: TELM1TAB35 PO (08:13)
[2023-09-09] MEDS ORDERED: METH-1164 PO (09:24)
[2023-09-09] MEDS ORDERED: PRED20TA PO (09:24)
[2023-09-09] MEDS ORDERED: IBUP-1022 PO (09:24)
[2023-09-09 09:50] VITALS: BP 170/111; TEMP 97; O2SAT 100
== END 2023-09-09 10:19 | disposition home or self-care (01) ==
LOC: M ED 06:17
DX: M54.50 Low back pain, unspecified (principal); S20.219A Contusion of unspecified front wall of thorax, initial encounter; Y92.9 Unspecified place or not applicable; Y93.9 Activity, unspecified; Y99.9 Unspecified external cause status; I10 Essential (primary) hypertension; E78.5 Hyperlipidemia, unspecified; N20.0 Calculus of kidney; Z88.8 Allergy status to other drugs, medicaments and biological substances; Z79.51 Long term (current) use of inhaled steroids; Z79.1 Long term (current) use of non-steroidal anti-inflammatories (NSAID); Z79.52 Long term (current) use of systemic steroids; Z79.899 Other long term (current) drug therapy
CPT/HCPCS: 71101; 72072; 72110; 80047; 96372; 99283; J1885

== ENCOUNTER 2023-10-22 05:47 | Emergency (ER) | payer BC, MEDICAID ==
[~2023-10-22] VITALS: Ht 190.5 cm; Wt 117.7 kg
[~2023-10-22 05:47] MED LIST changes: -ROSU10TA6 PO; +ROSU10TA61 PO; +TELM1TAB35 PO
[2023-10-22 05:48] VITALS: TEMP 97.2
[2023-10-22] MEDS: NS 1,000 ML IV ONE (07:57)
[2023-10-22] MEDS: ACETAMINOPHEN *IV* 1,000 MG in IV 1 EA IV ONE (07:59)
[2023-10-22 08:05] LABS: BASO % 0.7 % (0.0-1.0); EOS # 0.4 10^3/uL (0.0-0.5); EOS % 6.4 % (0.0-3.0); HEMATOCRIT 46.5 % (42.0-52.0); HEMOGLOBIN 17.1 g/dl (13.5-17.5); LYMPH # 2.2 10^3/uL (1.5-5.0); LYMPH % 40.4 % (24.0-44.0); MEAN CORPUSCULAR HEMOGLOBIN 30.4 pg (27.0-33.0); MEAN CORPUSCULAR VOLUME 82.6 fl (80.0-96.0); MONO # 0.4 10^3/uL (0.0-0.8); MONO % 7.9 % (2.0-8.0); NEUTROPHILS # 2.4 10^3/uL (1.5-8.5); NEUTROPHILS % 44.4 % (36.0-66.0); PLATELET COUNT, AUTOMATED 173 10^3/uL (150-450); RED BLOOD COUNT 5.63 10^6/uL (4.30-6.10); WHITE BLOOD COUNT 5.5 10^3/uL (4.0-10.0)
[2023-10-22] MEDS ORDERED: ALBU8.5H INH ×2 (08:05→10:53)
[2023-10-22] MEDS ORDERED: IBUP-1022 PO (08:05)
[2023-10-22] MEDS ORDERED: MIRA3350 PO (08:05)
[2023-10-22] MEDS ORDERED: HOME MED LIST COMPLETE! XX SCH (08:05)
[2023-10-22 08:06] LABS: MEAN CORPUSCULAR HGB CONC 36.8 g/dl (32.0-36.5)
[2023-10-22] MEDS ORDERED: RED1TAB. PO (08:08)
[2023-10-22] MEDS: IPRATROPIUM 0.5MG/ALBUTEROL 2.5MG INH SOL UD 3ML (DUONEB) NEB PRN (08:15)
[2023-10-22 08:21] LABS: CK-MB VALUE MASS 1.7 NG/ML (<3.6)
[2023-10-22 08:23] LABS: ALBUMIN 3.2 G/DL (3.2-5.2); BILIRUBIN,DIRECT 0.1 MG/DL (<0.4); BILIRUBIN,TOTAL 0.6 MG/DL (0.3-1.2); MB/CK RELATIVE INDEX 1.11 (< OR =4); TOTAL PROTEIN 7.1 G/DL (5.7-8.2)
[2023-10-22] MEDS ORDERED: ISOVUE-370 76% 100ML VIAL As Ordered ONE (08:50)
[2023-10-22 09:38] LABS: CK-MB VALUE MASS 1.3 NG/ML (<3.6)
[2023-10-22 09:39] LABS: MB/CK RELATIVE INDEX 0.92 (< OR =4)
[2023-10-22] MEDS: methylPREDNISolone 125MG 2ML VIAL IV ONE (10:30)
[2023-10-22] MEDS: KETOROLAC 30 MG/ML 1ML VIAL IV ONE (10:31)
[2023-10-22] MEDS ORDERED: PRED20TA PO (10:53)
[2023-10-22] MEDS ORDERED: BREAMIS10 MC (10:53)
[2023-10-22 11:05] VITALS: BP 146/100; O2SAT 95
== END 2023-10-22 11:08 | disposition home or self-care (01) ==
LOC: M ED 05:47
DX: R07.9 Chest pain, unspecified (principal); R06.2 Wheezing; J12.2 Parainfluenza virus pneumonia; R94.31 Abnormal electrocardiogram [ECG] [EKG]; I10 Essential (primary) hypertension; E78.5 Hyperlipidemia, unspecified; K21.9 Gastro-esophageal reflux disease without esophagitis; Z88.8 Allergy status to other drugs, medicaments and biological substances; Z79.51 Long term (current) use of inhaled steroids; Z79.1 Long term (current) use of non-steroidal anti-inflammatories (NSAID); Z79.52 Long term (current) use of systemic steroids; Z79.899 Other long term (current) drug therapy
CPT/HCPCS: 71045; 71275; 80047; 80076; 82550; 82553; 83605; 84484; 85025; 87486; 87581; 87633; 87798; 93005; 93041; 94640; 96361; 96365; 96374; 96375; 99285; J0131; J1885; J2919; Q9967

== ENCOUNTER 2023-11-12 05:51 | Observation (INO) | payer BC, MEDICAID ==
[~2023-11-12] VITALS: Ht 188 cm; Wt 117.7 kg
[~2023-11-12 05:51] MED LIST changes: +ALBU8.5H INH; +BREAMIS10 MC; +RED1TAB. PO
[2023-11-12] MEDS ORDERED: ISOVUE-370 76% 100ML VIAL As Ordered ONE (08:03)
[2023-11-12 08:08] LABS: BASO % 0.8 % (0.0-1.0); EOS # 0.2 10^3/uL (0.0-0.5); EOS % 3.4 % (0.0-3.0); HEMATOCRIT 43.5 % (42.0-52.0); HEMOGLOBIN 15.7 g/dl (13.5-17.5); LYMPH % 37.6 % (24.0-44.0); MEAN CORPUSCULAR HEMOGLOBIN 30.1 pg (27.0-33.0); MEAN CORPUSCULAR HGB CONC 36.1 g/dl (32.0-36.5); MEAN CORPUSCULAR VOLUME 83.3 fl (80.0-96.0); MONO # 0.4 10^3/uL (0.0-0.8); MONO % 7.6 % (2.0-8.0); NEUTROPHILS # 2.7 10^3/uL (1.5-8.5); NEUTROPHILS % 50.4 % (36.0-66.0); PLATELET COUNT, AUTOMATED 108 10^3/uL (150-450); RED BLOOD COUNT 5.22 10^6/uL (4.30-6.10); WHITE BLOOD COUNT 5.3 10^3/uL (4.0-10.0)
[2023-11-12] MEDS: IPRATROPIUM 0.5MG/ALBUTEROL 2.5MG INH SOL UD 3ML (DUONEB) NEB ONE (08:09)
[2023-11-12 08:34] LABS: ALKALINE PHOSPHATASE 58 U/L (46-116); ALT/SGPT 38 U/L (7.0-40); AST/SGOT 14 U/L (<34); BILIRUBIN,DIRECT 0.2 MG/DL (<0.4); BILIRUBIN,TOTAL 0.9 MG/DL (0.3-1.2); BLOOD UREA NITROGEN 20 MG/DL (9-23); CALCIUM LEVEL 9.1 MG/DL (8.5-10.1); CARBON DIOXIDE LEVEL 30 MMOL/L (20-31); CHLORIDE LEVEL 107 MMOL/L (98-107); CREATININE FOR GFR 1.52 MG/DL (0.70-1.30); GLOMERULAR FILTRATION RATE > 60.0 (>60); GLUCOSE, FASTING 101 MG/DL (60-100); POTASSIUM SERUM 3.8 MMOL/L (3.5-5.1); SODIUM LEVEL 141 MMOL/L (136-145); TOTAL PROTEIN 6.1 G/DL (5.7-8.2)
[2023-11-12 08:36] LABS: THYROID STIMULATING HORMONE 1.316 uIU/ML (0.55-4.78)
[2023-11-12] MEDS ORDERED: **hydrALAZINE HCL** 25 MG TAB PO SCH (09:00)
[2023-11-12] MEDS ORDERED: SPIRONOLACTONE 12.5MG PER 1/2 TABLET PEG SCH (09:00)
[2023-11-12 09:45] LABS: CK-MB VALUE MASS 1.8 NG/ML (<3.6)
[2023-11-12 09:47] LABS: CPK CREATINE PHOSPHOKINASE 109 U/L (46-171); MB/CK RELATIVE INDEX 1.65 (< OR =4)
[2023-11-12] MEDS ORDERED: MAALOX 30 ML SUSP *UDC PO PRN (11:00)
[2023-11-12] MEDS ORDERED: MOM 30ML SUSPENSION UDC PO PRN (11:00)
[2023-11-12] MEDS ORDERED: HOME MED LIST COMPLETE! XX SCH (11:10)
[2023-11-12 11:25] LABS: ERYTHROCYTE SEDIMENTATION RATE 10 mm/hr (0-15)
[2023-11-12] MEDS ORDERED: MIRALAX *UNIT DOSE* 17GM PACKET PO PRN (11:30)
[2023-11-12] MEDS ORDERED: ALBUTEROL 90 MCG/ACT 8GM HFA INHALER INH PRN (11:30)
[2023-11-12] MEDS ORDERED: SPIRONOLACTONE 12.5MG PER 1/2 TABLET PO SCH (11:33)
[2023-11-12 11:42] LABS: PROCALCITONIN <0.04 ng/ml
[2023-11-12] MEDS: FUROSEMIDE 40MG/4ML VIAL IV ONE (12:18)
[2023-11-12 12:35] VITALS: BP 157/84; TEMP 97; O2SAT 99
[2023-11-12] MEDS: SPIRONOLACTONE 12.5MG PER 1/2 TABLET PO SCH (12:38)
[2023-11-12 16:14] VITALS: BP 138/100; TEMP 97.2; O2SAT 99
[2023-11-12] MEDS: ACETAMINOPHEN TAB 650MG DOSE (2X325MG) PO PRN (18:17)
[2023-11-12 19:33] VITALS: BP 140/96; TEMP 97.6; O2SAT 100
[2023-11-12] MEDS: HEPARIN SOD (PORCINE) 5000UNITS/ML 1ML VIAL/SYRINGE SC SCH (20:38)
[2023-11-12] MEDS: DOCUSATE SODIUM 100MG CAPSULE PO SCH (20:38)
[2023-11-12 23:21] VITALS: BP 166/98; TEMP 97.2; O2SAT 98
[2023-11-12] MEDS: hydrALAZINE 20MG/ML 1ML VIAL IV ONE (23:58)
[2023-11-13] VITALS (7 sets, daily range): BP systolic 112–160; BP diastolic 70–118; TEMP 97–97.8; O2SAT 98
[2023-11-13] MEDS ORDERED: hydrALAZINE 20MG/ML 1ML VIAL IV PRN (01:00)
[2023-11-13 05:35] LABS: BASO % 0.6 % (0.0-1.0); EOS # 0.2 10^3/uL (0.0-0.5); EOS % 4.6 % (0.0-3.0); HEMATOCRIT 46.3 % (42.0-52.0); HEMOGLOBIN 16.5 g/dl (13.5-17.5); LYMPH # 1.7 10^3/uL (1.5-5.0); LYMPH % 35.9 % (24.0-44.0); MEAN CORPUSCULAR HEMOGLOBIN 29.4 pg (27.0-33.0); MEAN CORPUSCULAR HGB CONC 35.6 g/dl (32.0-36.5); MEAN CORPUSCULAR VOLUME 82.5 fl (80.0-96.0); MONO # 0.4 10^3/uL (0.0-0.8); MONO % 7.7 % (2.0-8.0); NEUTROPHILS # 2.4 10^3/uL (1.5-8.5); PLATELET COUNT, AUTOMATED 125 10^3/uL (150-450); RED BLOOD COUNT 5.61 10^6/uL (4.30-6.10); WHITE BLOOD COUNT 4.8 10^3/uL (4.0-10.0)
[2023-11-13] MEDS: hydrALAZINE 20MG/ML 1ML VIAL IV ONE (05:41)
[2023-11-13 05:58] LABS: BLOOD UREA NITROGEN 19 MG/DL (9-23); CALCIUM LEVEL 9.3 MG/DL (8.5-10.1); CARBON DIOXIDE LEVEL 27 MMOL/L (20-31); CHLORIDE LEVEL 104 MMOL/L (98-107); CREATININE FOR GFR 1.43 MG/DL (0.70-1.30); GLOMERULAR FILTRATION RATE > 60.0 (>60); GLUCOSE, FASTING 115 MG/DL (60-100); POTASSIUM SERUM 3.5 MMOL/L (3.5-5.1); SODIUM LEVEL 140 MMOL/L (136-145)
[2023-11-13] MEDS ORDERED: ALDA25TA2 PO (07:48)
[2023-11-13] MEDS ORDERED: TORS10TA3 PO (07:48)
[2023-11-13 08:00] LABS: CK-MB VALUE MASS 1.2 NG/ML (<3.6)
[2023-11-13] MEDS ORDERED: PILL CUTTER 1 EACH XX PRN (08:00)
[2023-11-13 08:05] LABS: MB/CK RELATIVE INDEX 1.34 (< OR =4)
[2023-11-13] MEDS: TORSEMIDE 10 MG TABLET PO SCH (08:29)
[2023-11-13] MEDS: TELMISARTAN 20 MG TAB PO SCH (08:38)
[2023-11-13] MEDS ORDERED: TORSEMIDE 10 MG TABLET PO SCH (09:00)
== END 2023-11-13 13:11 | disposition home or self-care (01) ==
LOC: M ED 05:51 → M ED INP 05:52 → M PCU 12:27
PROVIDERS: ADMIT Internal Medicine; ATTEND Internal Medicine
DX: R06.00 Dyspnea, unspecified (principal); I16.0 Hypertensive urgency; R04.2 Hemoptysis; J84.89 Other specified interstitial pulmonary diseases; I11.9 Hypertensive heart disease without heart failure; R79.89 Other specified abnormal findings of blood chemistry; K59.09 Other constipation; Z87.442 Personal history of urinary calculi; E78.5 Hyperlipidemia, unspecified; J90 Pleural effusion, not elsewhere classified; J81.1 Chronic pulmonary edema; Z96.0 Presence of urogenital implants; Z88.8 Allergy status to other drugs, medicaments and biological substances; Z79.899 Other long term (current) drug therapy; Z82.49 Family history of ischemic heart disease and other diseases of the circulatory system; Z82.5 Family history of asthma and other chronic lower respiratory diseases
CPT/HCPCS: 36415; 71275; 74018; 80047; 80048; 80076; 82550; 82553; 83605; 83735; 83880; 84145; 84443; 84484; 85025; 85652; 86140; 87486; 87581; 87633; 87798; 93005; 93041; 93306; 94640; 94760; 96372; 96374; 96375; 96376; 99285; J0360; J1940; Q9967

== ENCOUNTER → 2023-12-16 | Outpatient (CLI) | payer BC, MEDICAID ==
[~2023-12-16] MED LIST changes: +ALDA25TA2 PO; +TORS10TA3 PO
[2023-12-16 15:51] LABS: CALCIUM LEVEL 9.5 MG/DL (8.5-10.1); CREATININE FOR GFR 1.73 MG/DL (0.70-1.30); GLOMERULAR FILTRATION RATE 55.4 (>60); POTASSIUM SERUM 3.6 MMOL/L (3.5-5.1)
== END ==
LOC: M LAB 14:43
PROVIDERS: ATTEND Internal Medicine Cardiovascular Disease
DX: I10 Essential (primary) hypertension (principal)

== ENCOUNTER → 2023-12-27 | Outpatient (CLI) | payer BC, MEDICAID ==
[2023-12-27 16:43] LABS: BLOOD UREA NITROGEN 16 MG/DL (9-23); CALCIUM LEVEL 9.2 MG/DL (8.5-10.1); CARBON DIOXIDE LEVEL 26 MMOL/L (20-31); CHLORIDE LEVEL 106 MMOL/L (98-107); CREATININE FOR GFR 1.61 MG/DL (0.70-1.30); GLOMERULAR FILTRATION RATE > 60.0 (>60); GLUCOSE, FASTING 107 MG/DL (60-100); POTASSIUM SERUM 3.6 MMOL/L (3.5-5.1); SODIUM LEVEL 142 MMOL/L (136-145)
== END ==
LOC: M LAB 15:49
PROVIDERS: ATTEND Internal Medicine Cardiovascular Disease
DX: N28.9 Disorder of kidney and ureter, unspecified (principal); I42.0 Dilated cardiomyopathy

== ENCOUNTER 2024-02-01 09:04 | Emergency (ER) | payer BC, MEDICAID ==
[~2024-02-01] VITALS: Ht 190.5 cm; Wt 113.6 kg
[2024-02-01 09:42] LABS: VENOUS BASE EXCESS 2.1 (-2.0-2.0); VENOUS HCO3 27.4 MMOL/L (23.0-27.0); VENOUS O2 SATURATION 78.3 % (60.0-80.0); VENOUS PH 7.403 UNITS (7.330-7.430); VENOUS STANDARD HCO3 25.7 MMOL/L; VENOUS TOTAL CO2 28.8 MMOL/L (24.0-28.0)
[2024-02-01 09:50] LABS: BASO # 0.1 10^3/uL (0.0-0.2); EOS # 0.2 10^3/uL (0.0-0.5); EOS % 3.9 % (0.0-3.0); HEMOGLOBIN 16.4 g/dl (13.5-17.5); LYMPH # 1.8 10^3/uL (1.5-5.0); LYMPH % 30.3 % (24.0-44.0); MEAN CORPUSCULAR HEMOGLOBIN 29.4 pg (27.0-33.0); MEAN CORPUSCULAR HGB CONC 35.7 g/dl (32.0-36.5); MEAN CORPUSCULAR VOLUME 82.4 fl (80.0-96.0); MONO # 0.4 10^3/uL (0.0-0.8); MONO % 6.8 % (2.0-8.0); NEUTROPHILS # 3.4 10^3/uL (1.5-8.5); NEUTROPHILS % 57.8 % (36.0-66.0); PLATELET COUNT, AUTOMATED 164 10^3/uL (150-450); RED BLOOD COUNT 5.58 10^6/uL (4.30-6.10); WHITE BLOOD COUNT 5.9 10^3/uL (4.0-10.0)
[2024-02-01 10:19] LABS: ALBUMIN 3.5 G/DL (3.2-5.2); BILIRUBIN,DIRECT 0.2 MG/DL (<0.4); BILIRUBIN,TOTAL 0.9 MG/DL (0.3-1.2); CALCIUM LEVEL 9.2 MG/DL (8.5-10.1); CREATININE FOR GFR 1.66 MG/DL (0.70-1.30); GLOMERULAR FILTRATION RATE 58.1 (>60); POTASSIUM SERUM 3.5 MMOL/L (3.5-5.1); TOTAL PROTEIN 6.9 G/DL (5.7-8.2)
[2024-02-01 10:24] LABS: CK-MB VALUE MASS 2.2 NG/ML (<3.6)
[2024-02-01 10:27] LABS: MB/CK RELATIVE INDEX 1.11 (< OR =4)
[2024-02-01 10:28] LABS: THYROID STIMULATING HORMONE 1.768 uIU/ML (0.55-4.78)
[2024-02-01] MEDS ORDERED: ISOVUE-370 76% 100ML VIAL As Ordered ONE (10:34)
[2024-02-01 11:04] LABS: CK-MB VALUE MASS 2.4 NG/ML (<3.6)
[2024-02-01 11:11] LABS: MB/CK RELATIVE INDEX 1.29 (< OR =4)
[2024-02-01] MEDS: FUROSEMIDE 40MG/4ML VIAL IV ONE (12:45)
[2024-02-01 13:26] VITALS: BP 142/97; TEMP 96.9; O2SAT 97
== END 2024-02-01 13:35 | disposition home or self-care (01) ==
LOC: EDBD 09:04 → M ED 09:04
DX: I50.22 Chronic systolic (congestive) heart failure (principal); I51.7 Cardiomegaly; I45.81 Long QT syndrome; E78.5 Hyperlipidemia, unspecified; Z88.8 Allergy status to other drugs, medicaments and biological substances; Z79.51 Long term (current) use of inhaled steroids; Z79.899 Other long term (current) drug therapy
CPT/HCPCS: 71045; 71275; 80048; 80076; 82550; 82553; 82803; 83880; 84443; 84484; 85025; 87040; 87486; 87581; 87633; 87798; 93005; 93041; 94760; 96374; 99285; J1940; Q9967

== ENCOUNTER → 2024-02-09 | Outpatient (CLI) | payer BC, MEDICAID ==
[2024-02-09 19:24] LABS: ALBUMIN 3.5 G/DL (3.2-5.2); BILIRUBIN,TOTAL 0.8 MG/DL (0.3-1.2); CALCIUM LEVEL 9.3 MG/DL (8.5-10.1); CREATININE FOR GFR 1.77 MG/DL (0.70-1.30); GLOMERULAR FILTRATION RATE 53.9 (>60); POTASSIUM SERUM 4.1 MMOL/L (3.5-5.1); TOTAL PROTEIN 6.7 G/DL (5.7-8.2)
== END ==
LOC: M PLALAB 16:30
PROVIDERS: ATTEND Internal Medicine Cardiovascular Disease
DX: I10 Essential (primary) hypertension (principal)

== ENCOUNTER 2024-02-12 03:38 | Inpatient (IN) | payer BC, MEDICAID ==
[~2024-02-12] VITALS: Ht 190.5 cm; Wt 113.0 kg
[2024-02-12 04:02] LABS: VENOUS BASE EXCESS 0.3 (-2.0-2.0); VENOUS HCO3 24.8 MMOL/L (23.0-27.0); VENOUS O2 SATURATION 76.8 % (60.0-80.0); VENOUS PARTIAL PRESSURE CO2 39.9 mmHg (38.0-50.0); VENOUS PARTIAL PRESSURE O2 41.9 mmHg (30.0-50.0); VENOUS PH 7.412 UNITS (7.330-7.430); VENOUS STANDARD HCO3 24.2 MMOL/L; VENOUS TOTAL CO2 26.1 MMOL/L (24.0-28.0)
[2024-02-12] MEDS: MORPHINE 4 MG/ML 1ML VIAL IV PRN (04:04)
[2024-02-12] MEDS: NITROGLYCERIN 0.4MG SUBL TABLET SL PRN (04:06)
[2024-02-12 04:09] LABS: BASO % 0.6 % (0.0-1.0); EOS # 0.2 10^3/uL (0.0-0.5); EOS % 3.1 % (0.0-3.0); HEMATOCRIT 44.6 % (42.0-52.0); HEMOGLOBIN 16.2 g/dl (13.5-17.5); LYMPH # 1.9 10^3/uL (1.5-5.0); LYMPH % 29.8 % (24.0-44.0); MEAN CORPUSCULAR HEMOGLOBIN 29.7 pg (27.0-33.0); MEAN CORPUSCULAR HGB CONC 36.3 g/dl (32.0-36.5); MEAN CORPUSCULAR VOLUME 81.8 fl (80.0-96.0); MONO # 0.5 10^3/uL (0.0-0.8); MONO % 7.3 % (2.0-8.0); NEUTROPHILS # 3.7 10^3/uL (1.5-8.5); PLATELET COUNT, AUTOMATED 148 10^3/uL (150-450); RED BLOOD COUNT 5.45 10^6/uL (4.30-6.10); WHITE BLOOD COUNT 6.2 10^3/uL (4.0-10.0)
[2024-02-12 04:31] LABS: ALBUMIN 3.2 G/DL (3.2-5.2); BILIRUBIN,DIRECT 0.2 MG/DL (<0.4); BILIRUBIN,TOTAL 0.8 MG/DL (0.3-1.2); CALCIUM LEVEL 9.4 MG/DL (8.5-10.1); CK-MB VALUE MASS 1.2 NG/ML (<3.6); GLOMERULAR FILTRATION RATE 46.9 (>60); MB/CK RELATIVE INDEX 0.77 (< OR =4); POTASSIUM SERUM 3.5 MMOL/L (3.5-5.1); TOTAL PROTEIN 6.5 G/DL (5.7-8.2)
[2024-02-12 04:35] LABS: THYROID STIMULATING HORMONE 3.837 uIU/ML (0.55-4.78)
[2024-02-12] MEDS: hydrALAZINE 20MG/ML 1ML VIAL IV STA ×2 (05:10→07:48)
[2024-02-12 05:42] LABS: CK-MB VALUE MASS 1.2 NG/ML (<3.6)
[2024-02-12 05:44] LABS: MB/CK RELATIVE INDEX 0.84 (< OR =4)
[2024-02-12] MEDS: METOCLOPRAMIDE INJ 10MG/2ML VIAL IV ONE (08:54)
[2024-02-12] MEDS ORDERED: MOM 30ML SUSPENSION UDC PO PRN (10:25)
[2024-02-12] MEDS ORDERED: MAALOX 30 ML SUSP *UDC PO PRN (10:25)
[2024-02-12] MEDS: cloNIDine HCL 0.2 MG/24 HR PATCH TOP SCH (11:24)
[2024-02-12] MEDS: FUROSEMIDE 20MG/2ML VIAL IV SCH (11:29)
[2024-02-12 12:31] LABS: SODIUM,RANDOM URINE 120 MMOL/L
[2024-02-12] MEDS ORDERED: ROSU20TA61 PO (12:31)
[2024-02-12] MEDS ORDERED: TORS10TA3 PO (12:31)
[2024-02-12] MEDS ORDERED: ASPI-226 PO (12:31)
[2024-02-12] MEDS ORDERED: ENTR1TAB PO (12:31)
[2024-02-12] MEDS ORDERED: SPIR-10 PO (12:31)
[2024-02-12] MEDS ORDERED: HOME MED LIST COMPLETE! XX SCH (12:35)
[2024-02-12 12:40] LABS: CREATININE,RANDOM URINE 48.3 MG/DL
[2024-02-12 12:41] LABS: CREATININE, URINE 47.8 MG/DL
[2024-02-12 12:47] LABS: OSMOLALITY URINE 396 MOSM/KG (50-1400)
[2024-02-12 12:52] LABS: MAU/CREAT RATIO 748.9 MCG/MG (0.0-30.0)
[2024-02-12 13:05] LABS: PROTEIN, URINE AUTO 2+ mg/dL (NEGATIVE)
[2024-02-12 14:00] VITALS: BP 168/100; TEMP 97; O2SAT 97
[2024-02-12] MEDS: SPIRONOLACTONE 25 MG TAB PO SCH (14:03)
[2024-02-12] MEDS: clonazePAM 0.5 MG TAB PO SCH (14:03)
[2024-02-12] MEDS: ACETAMINOPHEN TAB 650MG DOSE (2X325MG) PO PRN (15:03)
[2024-02-12 16:27] VITALS: BP 160/120; TEMP 97.7; O2SAT 96
[2024-02-12] MEDS ORDERED: ALBUTEROL 90 MCG/ACT 8GM HFA INHALER INH PRN (17:00)
[2024-02-12 17:45] VITALS: BP 168/126
[2024-02-12] MEDS: ENTRESTO 24-26MG TABLET (SACUBITRIL/VALSARTAN) PO SCH (17:46)
[2024-02-12 18:50] VITALS: BP 168/118
[2024-02-12 19:39] VITALS: BP 162/108; TEMP 96.9; O2SAT 95
[2024-02-12 23:08] VITALS: BP 164/112; TEMP 97.2; O2SAT 95
[2024-02-13] VITALS (15 sets, daily range): BP systolic 140–160; BP diastolic 88–118; TEMP 97–97.6; O2SAT 92–100
[2024-02-13 06:03] LABS: HEMATOCRIT 44.2 % (42.0-52.0); HEMOGLOBIN 15.8 g/dl (13.5-17.5); MEAN CORPUSCULAR HEMOGLOBIN 29.5 pg (27.0-33.0); MEAN CORPUSCULAR HGB CONC 35.7 g/dl (32.0-36.5); MEAN CORPUSCULAR VOLUME 82.5 fl (80.0-96.0); PLATELET COUNT, AUTOMATED 143 10^3/uL (150-450); RED BLOOD COUNT 5.36 10^6/uL (4.30-6.10); WHITE BLOOD COUNT 6.3 10^3/uL (4.0-10.0)
[2024-02-13 06:13] LABS: CALCIUM LEVEL 8.9 MG/DL (8.5-10.1); CREATININE FOR GFR 1.75 MG/DL (0.70-1.30); GLOMERULAR FILTRATION RATE 54.7 (>60); POTASSIUM SERUM 3.7 MMOL/L (3.5-5.1)
[2024-02-13] MEDS: ENOXAPARIN 40MG/0.4ML SYRINGE (J1650 PER 10MG) SC SCH (09:00)
[2024-02-13] MEDS: ROSUVASTATIN 10 MG TAB (CRESTOR) PO SCH (09:13)
[2024-02-13] MEDS: ASPIRIN 81MG ENTERIC TABLET PO SCH (09:14)
[2024-02-13] MEDS: SPIRONOLACTONE 25 MG TAB PO SCH (20:34)
[2024-02-14] VITALS (15 sets, daily range): BP systolic 125–170; BP diastolic 68–99; TEMP 96.9–97.8; O2SAT 92–100
[2024-02-14 17:12] LABS: BLOOD UREA NITROGEN 22 MG/DL (9-23); CALCIUM LEVEL 9.3 MG/DL (8.5-10.1); CARBON DIOXIDE LEVEL 23 MMOL/L (20-31); CHLORIDE LEVEL 104 MMOL/L (98-107); CREATININE FOR GFR 1.58 MG/DL (0.70-1.30); GLOMERULAR FILTRATION RATE > 60.0 (>60); GLUCOSE, FASTING 114 MG/DL (60-100); POTASSIUM SERUM 3.8 MMOL/L (3.5-5.1); SODIUM LEVEL 134 MMOL/L (136-145)
[2024-02-14] MEDS: FUROSEMIDE 20 MG TAB PO SCH (17:49)
[2024-02-15] VITALS (13 sets, daily range): BP systolic 138–150; BP diastolic 64–102; TEMP 96.2–97.5; O2SAT 97–100
[2024-02-15 06:28] LABS: HEMATOCRIT 42.6 % (42.0-52.0); HEMOGLOBIN 15.4 g/dl (13.5-17.5); MEAN CORPUSCULAR HEMOGLOBIN 29.7 pg (27.0-33.0); MEAN CORPUSCULAR HGB CONC 36.2 g/dl (32.0-36.5); MEAN CORPUSCULAR VOLUME 82.2 fl (80.0-96.0); PLATELET COUNT, AUTOMATED 144 10^3/uL (150-450); RED BLOOD COUNT 5.18 10^6/uL (4.30-6.10); WHITE BLOOD COUNT 7.1 10^3/uL (4.0-10.0)
[2024-02-15 07:01] LABS: ALBUMIN 2.9 G/DL (3.2-5.2); BILIRUBIN,TOTAL 1.1 MG/DL (0.3-1.2); CALCIUM LEVEL 8.7 MG/DL (8.5-10.1); CREATININE FOR GFR 1.93 MG/DL (0.70-1.30); GLOMERULAR FILTRATION RATE 48.8 (>60); POTASSIUM SERUM 3.7 MMOL/L (3.5-5.1)
[2024-02-15] MEDS: TORSEMIDE 10 MG TABLET PO SCH (09:45)
[2024-02-15] MEDS ORDERED: PILL CUTTER 1 EACH XX PRN (11:10)
[2024-02-15] MEDS: FUROSEMIDE 20 MG TAB PO SCH (11:16)
[2024-02-15] MEDS: cloNIDine 0.1MG TABLET PO SCH (11:17)
[2024-02-16] VITALS (20 sets, daily range): BP systolic 125–151; BP diastolic 74–101; TEMP 96.4–97.4; O2SAT 93–100
[2024-02-16] MEDS: NITROGLYCERIN 0.4MG SUBL TABLET SL STA (02:52)
[2024-02-16 03:27] LABS: CALCIUM LEVEL 8.5 MG/DL (8.5-10.1); CREATININE FOR GFR 1.63 MG/DL (0.70-1.30); GLOMERULAR FILTRATION RATE 59.3 (>60); MAGNESIUM LEVEL 1.8 MG/DL (1.8-2.4); POTASSIUM SERUM 3.8 MMOL/L (3.5-5.1)
[2024-02-16] MEDS: FUROSEMIDE 40MG/4ML VIAL IV SCH (08:28)
[2024-02-16] MEDS ORDERED: cloNIDine 0.1MG TABLET PO SCH (09:00)
[2024-02-16] MEDS: CARVedilol 3.125 MG TAB PO SCH (12:23)
[2024-02-17 04:00] VITALS: BP 141/81; TEMP 97; O2SAT 97
[2024-02-17 06:25] LABS: CREATININE FOR GFR 1.66 MG/DL (0.70-1.30); GLOMERULAR FILTRATION RATE 58.1 (>60); POTASSIUM SERUM 3.9 MMOL/L (3.5-5.1)
[2024-02-17 07:57] VITALS: BP 142/103; TEMP 96.8; O2SAT 96
[2024-02-17 09:15] VITALS: BP 142/103
[2024-02-17] MEDS: DAPAGLIFLOZIN PROPANEDIOL 10MG TABLET (FARXIGA) PO SCH (09:15)
[2024-02-17 11:37] VITALS: BP 130/81; TEMP 96.7; O2SAT 96
[2024-02-17] MEDS ORDERED: FARX1TAB3 PO (13:23)
[2024-02-17] MEDS ORDERED: CARV3.12 PO (13:23)
== END 2024-02-17 15:27 | disposition home health service (06) | DRG 194 ==
LOC: M ED 03:38 → EDBD 03:38 → M ED INP 10:24 → M PCU 13:49
PROVIDERS: ADMIT Family Medicine; ATTEND Internal Medicine
DX: I13.0 Hypertensive heart and chronic kidney disease with heart failure and stage 1 through stage 4 chronic kidney disease, or unspecified chronic kidney disease (principal); N17.9 Acute kidney failure, unspecified; I27.20 Pulmonary hypertension, unspecified; N18.31 Chronic kidney disease, stage 3a; K76.1 Chronic passive congestion of liver; G47.33 Obstructive sleep apnea (adult) (pediatric); I50.23 Acute on chronic systolic (congestive) heart failure; F41.1 Generalized anxiety disorder; E78.5 Hyperlipidemia, unspecified; I16.1 Hypertensive emergency; F41.0 Panic disorder [episodic paroxysmal anxiety]; I16.9 Hypertensive crisis, unspecified; R07.89 Other chest pain; Z79.899 Other long term (current) drug therapy

== ENCOUNTER 2024-03-08 03:06 | Inpatient (IN) | payer BC, MEDICAID ==
[~2024-03-08] VITALS: Ht 190.5 cm; Wt 111.7 kg
[~2024-03-08 03:06] MED LIST changes: +ASPI-226 PO; +CARV3.12 PO; +ENTR1TAB PO; +FARX1TAB3 PO; +ROSU20TA61 PO; +SPIR-10 PO
[2024-03-08 03:58] LABS: HEMATOCRIT 46.4 % (42.0-52.0); HEMOGLOBIN 16.5 g/dl (13.5-17.5); MEAN CORPUSCULAR HEMOGLOBIN 29.4 pg (27.0-33.0); MEAN CORPUSCULAR HGB CONC 35.6 g/dl (32.0-36.5); MEAN CORPUSCULAR VOLUME 82.7 fl (80.0-96.0); PLATELET COUNT, AUTOMATED 180 10^3/uL (150-450); RED BLOOD COUNT 5.61 10^6/uL (4.30-6.10); WHITE BLOOD COUNT 5.2 10^3/uL (4.0-10.0)
[2024-03-08] MEDS: NITROGLYCERIN 0.4MG SUBL TABLET SL PRN (04:05)
[2024-03-08 04:15] LABS: INR 1.31; PROTHROMBIN TIME 15.9 SECONDS (12.5-14.5)
[2024-03-08 04:21] LABS: CK-MB VALUE MASS 1.6 NG/ML (<3.6)
[2024-03-08 04:22] LABS: CALCIUM LEVEL 8.7 MG/DL (8.5-10.1); CREATININE FOR GFR 1.87 MG/DL (0.70-1.30); GLOMERULAR FILTRATION RATE 50.6 (>60); MB/CK RELATIVE INDEX 0.98 (< OR =4); POTASSIUM SERUM 3.8 MMOL/L (3.5-5.1)
[2024-03-08 04:27] LABS: ABG BASE EXCESS -2.6 (-2.0-2.0); ABG O2 SATURATION 93.8 % (95.0-99.0); ABG PARTIAL PRESSURE CO2 29.1 mmHg (35.0-45.0); ABG PARTIAL PRESSURE O2 73.9 mmHg (75.0-100.0); ABG STANDARD HCO3 22.3 MMOL/L. (22.0-26.0); ABG TOTAL CO2 20.8 MMOL/L (22.0-29.0); ABG pH (ARTERIAL) 7.454 UNITS (7.350-7.450)
[2024-03-08] MEDS ORDERED: ISOVUE-370 76% 100ML VIAL As Ordered ONE (04:37)
[2024-03-08 06:07] LABS: CK-MB VALUE MASS 1.1 NG/ML (<3.6)
[2024-03-08 06:09] LABS: MB/CK RELATIVE INDEX 0.79 (< OR =4)
[2024-03-08] MEDS: FUROSEMIDE 40MG/4ML VIAL IV ONE (06:33)
[2024-03-08] MEDS ORDERED: CARV3.12 PO (08:15)
[2024-03-08] MEDS ORDERED: ENTR1TAB7 PO (08:15)
[2024-03-08] MEDS ORDERED: HOME MED LIST COMPLETE! XX SCH (08:20)
[2024-03-08] MEDS ORDERED: ALBUTEROL 90 MCG/ACT 8GM HFA INHALER INH PRN (09:05)
[2024-03-08] MEDS ORDERED: ASPIRIN 81MG ENTERIC TABLET PO PRN (09:05)
[2024-03-08] MEDS: FUROSEMIDE 40MG/4ML VIAL IV SCH (09:47)
[2024-03-08] MEDS: CARVedilol 3.125 MG TAB PO SCH (09:47)
[2024-03-08] MEDS: ENTRESTO 49-51MG TABLET (SACUBITRIL/VALSARTAN) PO SCH (10:36)
[2024-03-08 20:12] VITALS: BP 161/104; TEMP 96.7; O2SAT 96
[2024-03-08] MEDS: ROSUVASTATIN 10 MG TAB (CRESTOR) PO SCH (21:51)
[2024-03-08 23:56] VITALS: BP 152/104; TEMP 97.2; O2SAT 92
[2024-03-09] VITALS (8 sets, daily range): BP systolic 138–156; BP diastolic 82–118; TEMP 96.9–97.9; O2SAT 94–99
[2024-03-09 05:57] LABS: HEMATOCRIT 47.1 % (42.0-52.0); HEMOGLOBIN 16.8 g/dl (13.5-17.5); MEAN CORPUSCULAR HEMOGLOBIN 29.5 pg (27.0-33.0); MEAN CORPUSCULAR HGB CONC 35.7 g/dl (32.0-36.5); MEAN CORPUSCULAR VOLUME 82.6 fl (80.0-96.0); PLATELET COUNT, AUTOMATED 150 10^3/uL (150-450); WHITE BLOOD COUNT 4.9 10^3/uL (4.0-10.0)
[2024-03-09 06:20] LABS: CALCIUM LEVEL 9.2 MG/DL (8.5-10.1); CREATININE FOR GFR 1.82 MG/DL (0.70-1.30); GLOMERULAR FILTRATION RATE 52.2 (>60); MAGNESIUM LEVEL 1.9 MG/DL (1.8-2.4); POTASSIUM SERUM 3.9 MMOL/L (3.5-5.1)
[2024-03-09] MEDS: MAG SULF 1GM/100ML (MAG RUN) 1 GM in IV 1 EA IV ONE (10:15)
[2024-03-09] MEDS: FUROSEMIDE injection 250 MG in D5W 225 ML IV SCH (13:32)
[2024-03-09 17:15] LABS: IONIZED CALCIUM 4.4 MG/DL (4.5-5.3)
[2024-03-09 17:46] LABS: CALCIUM LEVEL 8.8 MG/DL (8.5-10.1); CREATININE FOR GFR 1.71 MG/DL (0.70-1.30); GLOMERULAR FILTRATION RATE 56.1 (>60); POTASSIUM SERUM 3.3 MMOL/L (3.5-5.1)
[2024-03-09] MEDS: POTASSIUM CHLORIDE 10% LIQ 20MEQ/15ML UDC PO ONE (21:18)
[2024-03-10 04:45] VITALS: BP 138/83; TEMP 97.5; O2SAT 92
[2024-03-10 05:47] LABS: HEMATOCRIT 48.5 % (42.0-52.0); HEMOGLOBIN 17.4 g/dl (13.5-17.5); MEAN CORPUSCULAR HEMOGLOBIN 29.6 pg (27.0-33.0); MEAN CORPUSCULAR HGB CONC 35.9 g/dl (32.0-36.5); MEAN CORPUSCULAR VOLUME 82.5 fl (80.0-96.0); PLATELET COUNT, AUTOMATED 157 10^3/uL (150-450); RED BLOOD COUNT 5.88 10^6/uL (4.30-6.10); WHITE BLOOD COUNT 5.7 10^3/uL (4.0-10.0)
[2024-03-10 06:16] LABS: BLOOD UREA NITROGEN 22 MG/DL (9-23); CALCIUM LEVEL 8.8 MG/DL (8.5-10.1); CARBON DIOXIDE LEVEL 30 MMOL/L (20-31); CHLORIDE LEVEL 104 MMOL/L (98-107); CREATININE FOR GFR 1.54 MG/DL (0.70-1.30); GLOMERULAR FILTRATION RATE > 60.0 (>60); GLUCOSE, FASTING 120 MG/DL (60-100); MAGNESIUM LEVEL 1.8 MG/DL (1.8-2.4); POTASSIUM SERUM 3.2 MMOL/L (3.5-5.1); SODIUM LEVEL 140 MMOL/L (136-145)
[2024-03-10 07:38] VITALS: BP 134/89; TEMP 96.6; O2SAT 98
[2024-03-10 09:06] VITALS: BP 134/89
[2024-03-10] MEDS: POTASSIUM CHLORIDE 10MEQ SR TABLET PO SCH (09:06)
[2024-03-10] MEDS ORDERED: POTA-298 PO (10:29)
== END 2024-03-10 11:28 | disposition home or self-care (01) | DRG 194 ==
LOC: EDSEX 03:06 → M ED 03:06 → M ED INP 07:48 → M PCU 20:12
PROVIDERS: ADMIT Internal Medicine; ATTEND Student in an Organized Health Care Education/Training Program
DX: I13.0 Hypertensive heart and chronic kidney disease with heart failure and stage 1 through stage 4 chronic kidney disease, or unspecified chronic kidney disease (principal); N17.9 Acute kidney failure, unspecified; I42.0 Dilated cardiomyopathy; G47.33 Obstructive sleep apnea (adult) (pediatric); I50.23 Acute on chronic systolic (congestive) heart failure; F41.1 Generalized anxiety disorder; I16.1 Hypertensive emergency; E78.5 Hyperlipidemia, unspecified; Z87.442 Personal history of urinary calculi; Z79.899 Other long term (current) drug therapy; Z88.8 Allergy status to other drugs, medicaments and biological substances; N18.9 Chronic kidney disease, unspecified

== ENCOUNTER → 2024-03-15 | Outpatient (REF) | payer BC, MEDICAID, OTHER ==
[~2024-03-15] MED LIST changes: +ENTR1TAB7 PO; +POTA-298 PO; -ROSU20TA61 PO; +ROSU20TA86 PO
[2024-03-15 17:34] LABS: COMPLEMENT C4 28.7 MG/DL (12-36); INR 1.17; PROTHROMBIN TIME 14.6 SECONDS (12.5-14.5)
[2024-03-16 09:50] LABS: COMPLEMENT C3 140.8 MG/DL (90.0-170.0)
== END ==
LOC: M LAB REF 17:01
PROVIDERS: ATTEND Internal Medicine Nephrology
DX: R31.9 Hematuria, unspecified (principal); R80.9 Proteinuria, unspecified

== ENCOUNTER → 2024-07-23 | Outpatient (CLI) | payer BC ==
[~2024-07-23] MED LIST changes: -CYCL5TAB PO; +CYCL5TAB4 PO; +LABETALOL 100MG/20ML VIAL As Ordered ONE; +LIDOCAINE 1% MDV 20ML VIAL As Ordered ONE; +MIDAZOLAM INJ 2MG/2ML VIAL As Ordered ONE; +NS (Normal Saline) 0.9% 1,000 ML IV SCH; +fentaNYL 100 MCG/2 ML INJECTION As Ordered ONE; +hydrALAZINE 20MG/ML 1ML VIAL As Ordered ONE
[2024-07-23 07:30] VITALS: TEMP 97.5
[2024-07-23 08:21] LABS: INR 1.05
[2024-07-23 09:01] VITALS: BP 164/103; O2SAT 97
== END ==
LOC: M IRPRO 07:16
PROVIDERS: ATTEND Internal Medicine Nephrology
DX: R80.9 Proteinuria, unspecified (principal); I10 Essential (primary) hypertension
CPT/HCPCS: 50200; 76705; 85610; 99152; 99153; J0360; J1920; J2250; J3010

== ENCOUNTER → 2024-08-13 | Outpatient (CLI) | payer BC ==
[~2024-08-13] MED LIST changes: -LABETALOL 100MG/20ML VIAL As Ordered ONE; -LIDOCAINE 1% MDV 20ML VIAL As Ordered ONE; -MIDAZOLAM INJ 2MG/2ML VIAL As Ordered ONE; -NS (Normal Saline) 0.9% 1,000 ML IV SCH; -fentaNYL 100 MCG/2 ML INJECTION As Ordered ONE; -hydrALAZINE 20MG/ML 1ML VIAL As Ordered ONE
== END ==
LOC: M RAD 16:19
DX: R91.1 Solitary pulmonary nodule (principal)

== ENCOUNTER → 2024-08-23 | Outpatient (REF) | payer BC ==
[2024-08-24 10:50] LABS: HEMATOCRIT 45.3 % (42.0-52.0); HEMOGLOBIN 16.4 g/dl (13.5-17.5); MEAN CORPUSCULAR HEMOGLOBIN 30.8 pg (27.0-33.0); MEAN CORPUSCULAR HGB CONC 36.2 g/dl (32.0-36.5); PLATELET COUNT, AUTOMATED 165 10^3/uL (150-450); RED BLOOD COUNT 5.33 10^6/uL (4.30-6.10); WHITE BLOOD COUNT 5.5 10^3/uL (4.0-10.0)
[2024-08-24 11:21] LABS: ALBUMIN 3.9 G/DL (3.2-5.2); ALKALINE PHOSPHATASE 57 U/L (40-129); ALT/SGPT 21 U/L (7.0-40); AST/SGOT 17 U/L (<34); BILIRUBIN,TOTAL 0.8 MG/DL (0.3-1.2); BLOOD UREA NITROGEN 18 MG/DL (9-23); CALCIUM LEVEL 9.9 MG/DL (8.5-10.1); CARBON DIOXIDE LEVEL 28 MMOL/L (20-31); CHLORIDE LEVEL 105 MMOL/L (98-107); CHOLESTEROL LEVEL 239 MG/DL (<200); CHOLESTEROL RISK RATIO 6.63 (<5); CREATININE FOR GFR 1.51 MG/DL (0.70-1.30); GLOMERULAR FILTRATION RATE > 60.0 (>60); GLUCOSE, FASTING 90 MG/DL (60-100); LDL CHOLESTEROL 182.2 MG/DL (<100); POTASSIUM SERUM 5.4 MMOL/L (3.5-5.1); SODIUM LEVEL 142 MMOL/L (136-145); TOTAL PROTEIN 7.9 G/DL (5.7-8.2); TRIGLYCERIDES LEVEL 104 MG/DL (<150)
== END ==
LOC: M SFHCPLAZ 10:01
DX: N18.31 Chronic kidney disease, stage 3a (principal); I50.20 Unspecified systolic (congestive) heart failure; E78.5 Hyperlipidemia, unspecified

== ENCOUNTER → 2024-09-14 | Outpatient (CLI) | payer BC ==
[2024-09-14 18:31] LABS: HEMATOCRIT 45.5 % (42.0-52.0); HEMOGLOBIN 16.4 g/dl (13.5-17.5); MEAN CORPUSCULAR HEMOGLOBIN 30.3 pg (27.0-33.0); MEAN CORPUSCULAR VOLUME 84.1 fl (80.0-96.0); PLATELET COUNT, AUTOMATED 140 10^3/uL (150-450); RED BLOOD COUNT 5.41 10^6/uL (4.30-6.10); WHITE BLOOD COUNT 4.8 10^3/uL (4.0-10.0)
[2024-09-14 18:41] LABS: INR 1.07; PROTHROMBIN TIME 14.2 SECONDS (12.5-14.5)
[2024-09-14 18:54] LABS: BLOOD UREA NITROGEN 16 MG/DL (9-23); CALCIUM LEVEL 9.8 MG/DL (8.5-10.1); CARBON DIOXIDE LEVEL 25 MMOL/L (20-31); CHLORIDE LEVEL 106 MMOL/L (98-107); CREATININE FOR GFR 1.39 MG/DL (0.70-1.30); GLOMERULAR FILTRATION RATE > 60.0 (>60); GLUCOSE, FASTING 82 MG/DL (60-100); SODIUM LEVEL 140 MMOL/L (136-145)
== END ==
LOC: M LAB 17:33
PROVIDERS: ATTEND Internal Medicine Nephrology
DX: Z79.01 Long term (current) use of anticoagulants (principal)

== ENCOUNTER → 2024-12-26 | Outpatient (CLI) | payer BC ==
[~2024-12-26] MED LIST changes: +ACET-907 PO; +CARV6.25 PO; +ENTR1TAB4 PO; -FLOM0.4C39 PO; +JARD1TAB PO; +LIDO1ADH93 TD; +LISI40TA10; -LISI40TA4; +TAMS-18 PO
[2024-12-26 18:40] LABS: ALT/SGPT 38.0 U/L (7.0-40); AST/SGOT 35.0 U/L (<34); CALCIUM LEVEL 9.5 MG/DL (8.5-10.1); CARBON DIOXIDE LEVEL 28.0 MMOL/L (20-31); CHLORIDE LEVEL 103.0 MMOL/L (98-107); CHOLESTEROL LEVEL 153.0 MG/DL (<200); CHOLESTEROL RISK RATIO 4.1 (<5); CPK CREATINE PHOSPHOKINASE 401.0 U/L (46-171); CREATININE FOR GFR 1.59 MG/DL (0.70-1.30); GLOMERULAR FILTRATION RATE 53.9 (>60); LDL CHOLESTEROL 94.3 MG/DL (<100); MAGNESIUM LEVEL 2.1 MG/DL (1.8-2.4); NON-HDL-C 115.7 MG/DL; POTASSIUM SERUM 4.1 MMOL/L (3.5-5.1); SODIUM LEVEL 140.0 MMOL/L (136-145); TRIGLYCERIDES LEVEL 107.0 MG/DL (<150)
[2024-12-26 18:45] LABS: BASO # 0.0 10^3/uL (0.0-0.2); BASO % 0.6 % (0.0-1.0); EOS # 0.3 10^3/uL (0.0-0.5); EOS % 5.3 % (0.0-3.0); LYMPH # 2.5 10^3/uL (1.5-5.0); LYMPH % 38.6 % (24.0-44.0); MONO # 0.5 10^3/uL (0.0-0.8); MONO % 8.2 % (2.0-8.0); NEUTROPHILS # 3.0 10^3/uL (1.5-8.5); NEUTROPHILS % 47.1 % (36.0-66.0); PLATELET COUNT, AUTOMATED 144 10^3/uL (150-450)
== END ==
LOC: M RAD 17:15
DX: M54.31 Sciatica, right side (principal); E78.5 Hyperlipidemia, unspecified; I50.20 Unspecified systolic (congestive) heart failure

== ENCOUNTER → 2025-04-01 | Outpatient (CLI) | payer BC ==
[~2025-04-01] MED LIST changes: -IBUP-1022 PO; +IBUP600T42 PO
[2025-04-01 13:26] LABS: PLATELET COUNT, AUTOMATED 152 10^3/uL (150-450)
[2025-04-01 13:45] LABS: ESTIMATED AVERAGE GLUCOSE 140.0 MG/DL (60-110)
[2025-04-01 13:54] LABS: ALT/SGPT 35.0 U/L (7.0-40); AST/SGOT 27.0 U/L (<34); CALCIUM LEVEL 10.0 MG/DL (8.5-10.1); CARBON DIOXIDE LEVEL 32.0 MMOL/L (20-31); CHLORIDE LEVEL 101.0 MMOL/L (98-107); CHOLESTEROL LEVEL 221.0 MG/DL (<200); CHOLESTEROL RISK RATIO 5.56 (<5); CREATININE FOR GFR 1.45 MG/DL (0.70-1.30); GLOMERULAR FILTRATION RATE 60.2 (>60); LDL CHOLESTEROL 157.3 MG/DL (<100); NON-HDL-C 181.3 MG/DL; POTASSIUM SERUM 4.4 MMOL/L (3.5-5.1); SODIUM LEVEL 142.0 MMOL/L (136-145); TRIGLYCERIDES LEVEL 120.0 MG/DL (<150)
== END ==
LOC: M PLALAB 10:16
PROVIDERS: ATTEND Student in an Organized Health Care Education/Training Program
DX: I11.0 Hypertensive heart disease with heart failure (principal); I50.20 Unspecified systolic (congestive) heart failure; E78.5 Hyperlipidemia, unspecified

== ENCOUNTER → 2025-04-13 | Outpatient (CLI) | payer BC ==
[~2025-04-13] MED LIST changes: -ROSU10TA61 PO; +ROSU10TA90 PO
== END ==
LOC: M LAB 08:52
DX: M54.31 Sciatica, right side (principal)

== ENCOUNTER → 2025-05-18 | Outpatient (CLI) | payer BC ==
[2025-05-18 09:26] LABS: PLATELET COUNT, AUTOMATED 156 10^3/uL (150-450)
[2025-05-18 09:40] LABS: ESTIMATED AVERAGE GLUCOSE 134.0 MG/DL (60-110)
[2025-05-18 09:42] LABS: CHOLESTEROL LEVEL 125.0 MG/DL (<200); CHOLESTEROL RISK RATIO 3.69 (<5); LDL CHOLESTEROL 75.4 MG/DL (<100); NON-HDL-C 91.2 MG/DL; TRIGLYCERIDES LEVEL 79.0 MG/DL (<150)
== END ==
LOC: M LAB 07:56
DX: I50.20 Unspecified systolic (congestive) heart failure (principal); E11.22 Type 2 diabetes mellitus with diabetic chronic kidney disease